=== PATIENT | female | born 1945 | race Caucasian/White ===

== ENCOUNTER 2016-08-24 22:05 | Inpatient (IN) | payer MEDICARE, MEDICAID ==
--- NOTE | 2016-08-24 22:08 | ED Physician Chart ---
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 with acute, constant, severe, low blood sugar that was noticed about 20 minutes prior to arrival. Patient also had associated hypotension with systolic blood pressure in the 60s and heart rate in the 50s despite being ventricularly paced. Patient is alert and oriented not tachypneic and asymptomatic. Allergies:: Allergies Allergy/AdvReac Type Severity Reaction Status Date / Time No Known Allergies Allergy Verified 09/16/15 21:24 Historian:: Patient, EMS Review:: Nurse's Note Reviewed, EMS run form Reviewed Review of Systems - Review of Systems Other: Complete system review otherwise unremarkable except as noted in history of present illness. Past Medical History - Past Medical History Past Medical History: HTN, DM, Other (pacemaker, diabetes mellitus, hypertension , COPD, cardiomegaly, muscle weakness, left buttock ulcer stage III, rheumatoid arthritis) Family History: None Social History: Non Smoker, No Alcohol, No Drug Use, Care Facility Surgical History: Pacemaker Psychiatricy History: None Medication: Reviewed Family Medical History - Family Member Mother History Unknown: Yes Father Ethnicity: Non- Living Status: Hx Family Cancer: No Hx Family Coronary Artery Disease: No Hx Family Congestive Heart Failure: No Hx Family Hypertension: No Hx Family Stroke: No Hx Family Diabetes: Yes Hx Family Seizures: No Hx Family Dementia: No Hx Family AIDS: No Hx Family HIV: No Hx Family COPD: No Hx Family Hepatitis: No Hx Family Psychiatric Problems: No Hx Family Tuberculosis: No Physical Exam - Physical Examination Other:: INITIAL VITAL SIGNS: Reviewed by me GENERAL: Alert and interactive. No acute distress HEAD: Head is normocephalic and atraumatic EYES: EOMI. PERRL. No scleral icterus. No conjunctival injection ENT: Moist mucous membranes. NECK: Supple. No masses. Full range of motion RESPIRATORY: No tachypnea. Clear breath sounds bilaterally. No wheezing, rales, or rhonchi CV: Bradycardic. No murmurs, rubs, or gallops ABDOMEN: Soft, non-distended, non-tender. No guarding. No rebound. No masses. EXTREMITIES: No deformity. No cyanosis. No edema. SKIN: Warm and dry. No obvious rashes. NEUROLOGIC: Alert and oriented. Face is symmetric. Speech is normal. Moves all extremities equally. Motor and sensory distally intact. Labs/Radiology/EKG Results - Lab Results Results: Lab Results 08/24/16 08/24/16 08/24/16 Range/Units 22:18 22:18 22:21 WBC 10.5 (4.8-10.8) Th/cmm RBC 2.89 L (3.80-5.20) Mil/cmm Hgb 8.2 L (11.7-16.1) gm/dL Hct 25.1 L (35.0-45.0) % MCV 87.1 (81-100) fl MCH 28.6 (27.0-31.0) pg MCHC Differential 32.8 (28.0-36.0) pg RDW 12.7 (11.5-20.0) % Plt Count 255 D (150-400) Th/cmm MPV 7.1 fl Neutrophils % 77.4 (40.0-80.0) % Lymphocytes % 16.4 L (20.0-50.0) % Monocytes % 3.9 (2.0-10.0) % Eosinophils % 2.0 (0.0-5.0) % Basophils % 0.3 (0.0-2.0) % PT 10.8 (9.5-11.5) SECONDS INR 1.04 (0.5-1.4) PTT (Actin FS) 22.7 L (26.0-38.0) SECONDS Sodium 125 L (136-145) mEq/L Potassium 5.5 H (3.5-5.1) mEq/L Chloride 95 L (98-107) mEq/L Carbon Dioxide 23.2 (21.0-31.0) mEq/L Anion Gap 12.3 (7.0-16.0) BUN 117 H* (7-25) mg/dL Creatinine 6.0 H* (0.6-1.2) mg/dL Est GFR ( Amer) 8.9 (>90) ml/min Est GFR (Non-Af Amer) 7.4 ml/min BUN/Creatinine Ratio 19.5 Glucose 101 (70-105) mg/dL Whole Bld Lactic Acid (0.60-1.99) mmol/L Calcium 8.3 L (8.6-10.3) mg/dL Total Bilirubin 0.2 L (0.3-1.0) mg/dL AST 16 (13-39) U/L ALT 6 L (7-52) U/L Alkaline Phosphatase 68 (34-104) U/L Creatine Kinase 44 (30-223) U/L Total Protein 6.5 (6.0-8.3) gm/dL Albumin 2.9 L (3.7-5.3) gm/dL Globulin 3.6 gm/dL Albumin/Globulin Ratio 0.8 L (1.0-1.8) 08/24/16 Range/Units 22:21 WBC (4.8-10.8) Th/cmm RBC (3.80-5.20) Mil/cmm Hgb (11.7-16.1) gm/dL Hct (35.0-45.0) % MCV (81-100) fl MCH (27.0-31.0) pg MCHC Differential (28.0-36.0) pg RDW (11.5-20.0) % Plt Count (150-400) Th/cmm MPV fl Neutrophils % (40.0-80.0) % Lymphocytes % (20.0-50.0) % Monocytes % (2.0-10.0) % Eosinophils % (0.0-5.0) % Basophils % (0.0-2.0) % PT (9.5-11.5) SECONDS INR (0.5-1.4) PTT (Actin FS) (26.0-38.0) SECONDS Sodium (136-145) mEq/L Potassium (3.5-5.1) mEq/L Chloride (98-107) mEq/L Carbon Dioxide (21.0-31.0) mEq/L Anion Gap (7.0-16.0) BUN (7-25) mg/dL Creatinine (0.6-1.2) mg/dL Est GFR ( Amer) (>90) ml/min Est GFR (Non-Af Amer) ml/min BUN/Creatinine Ratio Glucose (70-105) mg/dL Whole Bld Lactic Acid 1.73 (0.60-1.99) mmol/L Calcium (8.6-10.3) mg/dL Total Bilirubin (0.3-1.0) mg/dL AST (13-39) U/L ALT (7-52) U/L Alkaline Phosphatase (34-104) U/L Creatine Kinase (30-223) U/L Total Protein (6.0-8.3) gm/dL Albumin (3.7-5.3) gm/dL Globulin gm/dL Albumin/Globulin Ratio (1.0-1.8) - Radiology Results Results: Single AP VIEW Portable Chest X-ray was interpreted independently and contemporaneously by Allan Goode MD: Cardiomegaly Normal mediastinum Small Right lower lobe effusion No pneumothorax No soft tissue or bony abnormalities - EKG Interpretations Comments:: 12-lead EKG Interpretation by Allan Goode MD: Atrial ventricular dual paced complexes with ventricular rate of 50 beats per minute Normal axis Normal intervals No acute ST or T wave changes. No obvious STEMI ED Septic Shock - . Is Septic Shock (SBP<90, OR Lactate>4 mmol\L) present?: No Reassessment (Disposition) - Reassessment Reassessment:: In route patient received D10. Blood sugar improved to 100. Blood pressure was improving on arrival. Patient was alert and oriented. On arrival, she was given IV fluids. Accu-Chek showed glucose 101. BUN is 101, creatinine 6.0. Patient is in acute renal failure. Patient is also hyponatremic with sodium 125. [facility] and she received insulin. This dropped her blood sugar greater than 50 range. Consequently she must have developed severe hypotension with systolic blood pressure 60 mmHg. At that point apparently, 911 was called. She was then brought to the ER for further workup and treatment. We do have labs from last year showing a normal creatinine of 1.0. She is a DNR/DNI and a POLST form was transferred with her. Patient was monitored here in the ER. Given her comorbidities she may need further monitoring to make sure she doesn't decompensate. We discussed the case with the admitting physician. Patient admitted for further workup and treatment. Reassessment Condition:: Improved - Diagnosis Diagnosis:: Acute renal failure Acute elevated BUN Acute hypotension Acute Hypoglycemia Bradycardia Insulin-dependent Diabetes mellitus type 2 - Patient Disposition Discharge/Transfer:: Acute Care w/in this hosp Admitted to:: Telemetry Admitting Medical Physician:: Michael Tovar Time:: 00:02 Condition at Disposition:: Stable ED Discharge Plan - Patient Disposition Admit/Discharge/Transfer: Acute Care w/in this hosp
[2016-08-24] MEDS ORDERED: Sodium Chloride 0.9% 1,000 ML IV ONE ×2 (22:09)
[2016-08-24] MEDS ORDERED: cefTRIAXone 1 GM in Sodium Chloride 0.9% 50 ML IV ONE (22:11)
[2016-08-24] MEDS ORDERED: Dextrose 50% 50 mL Abboject IVP STA (22:12)
[2016-08-24 22:49] LABS: % BASOPHILS 0.3 % (0.0-2.0); % LYMPHOCYTES 16.4 % (20.0-50.0); % MONOCYTES 3.9 % (2.0-10.0); % NEUTROPHILS 77.4 % (40.0-80.0); HEMATOCRIT 25.1 % (35.0-45.0); HEMOGLOBIN 8.2 gm/dL (11.7-16.1); MEAN CELL VOLUME 87.1 fl (81-100); MEAN CORPUSCULAR HEMOGLOBIN 28.6 pg (27.0-31.0); MEAN CORPUSCULAR HGB CONC 32.8 pg (28.0-36.0); MEAN PLATELET VOLUME 7.1 fl; NEUTROPHILE ABSOLUTE 8.2 Th/cmm (1.8-8.0); PLATELET COUNT 255 Th/cmm (150-400); RED BLOOD COUNT 2.89 Mil/cmm (3.80-5.20); RED CELL DISTRIBUTION WIDTH 12.7 % (11.5-20.0); WHITE BLOOD COUNT 10.5 Th/cmm (4.8-10.8)
[2016-08-24 23:13] LABS: INR 1.04 (0.5-1.4); PROTHROMBIN TIME (TEST) 10.8 SECONDS (9.5-11.5)
[2016-08-24 23:16] LABS: ALB/GLOB RATIO 0.8 (1.0-1.8); ANION GAP 12.3 (7.0-16.0); BILIRUBIN,TOTAL 0.2 mg/dL (0.3-1.0); BUN/CREATININE RATIO 19.5; CALCIUM SERUM 8.3 mg/dL (8.6-10.3); CARBON DIOXIDE 23.2 mEq/L (21.0-31.0); POTASSIUM SERUM 5.5 mEq/L (3.5-5.1)
[2016-08-25] MEDS ORDERED: Magnesium Hydroxide (MOM) 30 mL UDC PO PRN (00:05)
[2016-08-25] MEDS ORDERED: Hydrocodone/APAP 5mg/325mg Tab PO PRN ×2 (00:05→00:10)
[2016-08-25] MEDS ORDERED: Hydrocodone/APAP 10 mg/325 mg Tab PO PRN (00:05)
[2016-08-25] MEDS ORDERED: Maalox 30 mL Cup PO PRN (00:05)
[2016-08-25] MEDS ORDERED: guaiFENesin 200 MG/10 ML UDC PO PRN (00:10)
[2016-08-25] MEDS ORDERED: Albuterol Nebulizer 2.5mg/3mL HHN PRN (00:10)
[2016-08-25] MEDS ORDERED: Dextrose 50% 50 mL Abboject IVP ONE (00:23)
[2016-08-25] MEDS: D5-0.9%NS 1,000 ML IV SCH ×2 (02:27→13:59)
--- NOTE | 2016-08-25 03:31 | Admit Criteria Form ---
Admit Criteria Forms - Admit Criteria Diagnosis: RENAL FAILURE, ACUTE Clinical Indications for Admission to Inpatient Care ( Place 'X' for any and all applicable criteria): Admission is indicated for ALL (if I & II) or III of the following [A](2)(3)(4)( 5)(6)(7): [X]I. Acute renal failure as indicated by ANY ONE of the following: [X]a) A 3-fold rise in serum creatinine from baseline [ ]b) Serum creatinine greater than 4 mg/dL (354 micromoles/L) with an acute rise greater than 0.5 mg/dL (44.2 micromoles/L) [ ]c) Reduction of more than 75% in estimated glomerular filtration rate from baseline [ ]d) Estimated glomerular filtration rate less than 35 mL/min/1.73m2 (0.59mL/sec/1.73m2)in a child up to 18 years of age [ ]e) Anuria indicated by ALL of the following: [ ]i) Adequate volume status [ ]ii) Cessation of urine output indicated by ANY ONE of the following: [ ]1) Urine output less than 0.3 mL/kg/hr for 24 hours [ ]2) Anuria (urine output less than 0.1 mL/kg/ hr) for 12 hours [X] II. Renal failure cannot be managed in an outpatient setting or observational care setting as indicating by ANY ONE of the following: [ ]a) Altered mental status that is severe or persistent [ ]b) Volume overload or Respiratory distress (eg, clinically significant pulmonary edema) that is severe or persistent [ ]c) Cardiac arrhythmias of immediate concern [ ]d) Hemodynamic instability [ ]e) Clinically significant electrolyte abnormality that requires inpatient care (eg, hyperkalemia with severe ECG findings)[B] [ ]f) Clinically significant metabolic abnormality (eg, acidosis) that is severe or persistent [ ]g) Acute treatment of renal failure (eg, renal replacement therapy) not feasible or appropriate in observational care setting [ ]h) Clinical situation too unstable or uncertain (eg, inadequate urine output, ongoing decline in renal function, etiology unclear) [ ]i) Necessary support and caregiver ability to comply with outpatient treatment cannot be arranged in observation care timeframe (eg, within 24 hours) [X]j) Other significant finding or clinical condition judged not to be within scope of observation care [ ]III.General contraindications and/or Inappropriate clinical situations for Observational Care in patients with Acute Renal Failure, when ANY ONE of the following is required: [ ]a) Prediction of prolongation of LOS based on ANY ONE of the following may be considered as a contraindication for observational care 2, 3, 4, 5, 6, 7, 8 , 9, 10, 11 [ ]i) Age > 65 yrs. [ ]ii) Patient arriving by ambulance [ ]iii) Patient with high acuity [ ]iv) Patient requiring vital sign monitoring [ ]v) Patient on IV medication [ ]b) Systolic blood pressures 180mmHg 3,12 [ ]c) Patient with altered mental status including delirium and other alteration of consciousness, (3) [ ]d) Patient whose discharge disposition will be to a residential home or rehabilitation home should not be managed in Emergency Department Observation Unit. CMS rule requires 3 days hospital stay before such placement.3,13 [ ]e) Patient with failure to thrive due to broad array of etiologies 3, 16,17 [ ]f) Inability to ambulate 3,14 Extended stay beyond goal length of stay may be needed for(13) [ ]a) Continuing uremic complications [ ]b) Care for comorbidities [ ]c) acute renal failure [ ]d) Need for dialysis The original [employer] content created by [employer] has been revised. The portions of the content which have been revised are identified through the use of italic text or in bold, and [facility] has neither reviewed nor approved the modified material. All other unmodified content is copyright [employer]. Please see references footnoted in the original [employer] edition 2016
[2016-08-25] MEDS: INSULIN ASPART SLIDING SCALE 100 UNITS/ML UNIT SUBQ SCH ×4 (06:46→21:35)
[2016-08-25] MEDS ORDERED: INSULIN HUMAN REGULAR 100 UNITS/ML UNIT SUBQ SCH (07:30)
[2016-08-25 08:07] LABS: URINE BILIRUBIN SMALL (NEGATIVE); URINE BLOOD LARGE (NEGATIVE); URINE COLOR YELLOW; URINE GLUCOSE (UA) NEGATIVE (NEGATIVE); URINE KETONE NEGATIVE (NEGATIVE)
[2016-08-25 08:08] LABS: URINE PROTEIN 30 mg/dL (NEGATIVE); URINE UROBILINOGEN 0.2 E.U./dL (0.2 - 1.0)
[2016-08-25 08:13] LABS: URINE BACTERIA MANY /hpf (NONE SEEN); URINE EPITHELIAL CELLS FEW /lpf (FEW); URINE WBC 50-100 /hpf (0-5)
[2016-08-25] MEDS: Multivitamin w/ Minerals Tab PO SCH (08:26)
[2016-08-25] MEDS: Insulin Detemir 100 units/mL 10mL Vial SUBQ SCH (08:44)
[2016-08-25] MEDS ORDERED: Non-Formulary Item 1 EA (Arginine/Ascorbate Sod/Vite Ac [Arginaid Powder] 1 EACH) PO SCH (09:00)
[2016-08-25] MEDS ORDERED: AMINO ACIDS PO SCH (09:00)
[2016-08-25] MEDS ORDERED: INSULIN GLARGINE SUBQ SCH (09:00)
[2016-08-25] MEDS ORDERED: PROTEIN HYDR PO SCH (09:00)
[2016-08-25] MEDS ORDERED: FIBER PO SCH (09:00)
[2016-08-25] MEDS ORDERED: Sulfamethoxazole/TMP 800/160mg Tab PO SCH (09:00)
[2016-08-25] MEDS ORDERED: [UNRECOGNIZED DRUG - OTHER] PO SCH (09:00)
--- NOTE | 2016-08-25 09:57 | History and Physical Report ---
History of Present Illness - History of Present Illness Chief Complaint: Low Blood Sugar History of Present Illness: 71 yo female brought from [facility] with low blood sugar. Also was found with low blood pressure and low heart rate. - Past Medical History Cardiac: HTN Pulmonary: COPD Rheumatologic: Rheumatoid arthritis Endocrine: Diabetes - Past Surgical History Past Surgical History: Other - Past Family History Family History: None - Past Social History Smoke: No Alcohol: None Drugs: None Lives: [facility]sp Review of Systems - Review of Systems Constitutional: Fever, Chills, Sweats, Weakness, Malaise, Other Eyes: Pain, Vision Change, Conjunctivae Inflammation, Eyelid Inflammation, Redness, Other ENT: Ear Pain, Ear Discharge, Nose Pain, Nose Discharge, Nose Congestion, Mouth Pain, Mouth Swelling, Throat Pain, Throat Swelling, Other Respiratory: Cough, Dry, Shortness of Breath, Hemoptysis, SOB with Excertion, Pleuritic Pain, Sputum, Wheezing Cardiovascular: Chest Pain, Palpitations, Orthopnea, Paroxysmal Noc. Dyspnea, Edema, Light Headedness, Other Gastrointestinal: Nausea, Vomiting, Abdominal Pain, Diarrhea, Constipation, Melena, Hematochezia, Other Genitourinary: Dysuria, Frequency, Incontinence, Hematuria, Retention, Other Musculoskeletal: Neck Pain, Shoulder Pain, Arm Pain, Back Pain, Hand Pain, Leg Pain, Foot Pain, Other Skin: Rash, Lesions, Trell, Bruising, Other Neurological: Weakness, Numbness, Incoordination, Change in Speech, Confusion, Seizures, Other - Medications/Allergies Allergies/Adverse Reactions: Allergies Allergy/AdvReac Type Severity Reaction Status Date / Time No Known Allergies Allergy Verified 08/24/16 22:16 Medications: Current Medications Acetaminophen (Tylenol) 650 mg PO Q6H PRN PRN Reason: Mild Pain/Headache/T above 101 Stop: 10/24/16 00:04 Acetaminophen/Hydrocodone Bitart (Penn 10 Mg/325 Mg) 1 tab PO Q6H PRN PRN Reason: Pain (Severe) Stop: 10/24/16 00:04 Acetaminophen/Hydrocodone Bitart (Penn 5mg/325mg) 1 tab PO Q6H PRN PRN Reason: Moderate Pain Stop: 10/24/16 00:04 Al Hydrox/Mg Hydrox/Simethicone (Maalox) 30 ml PO Q6H PRN PRN Reason: Dyspepsia Stop: 10/24/16 00:04 Albuterol Sulfate (Albuterol 2.5mg/3ml Neb Ud) 2.5 mg HHN Q4HR PRN PRN Reason: Shortness of Breath or Wheeze Stop: 10/24/16 00:09 Ascorbic Acid (Vitamin C) 500 mg PO DAILY [facility] Stop: 10/24/16 08:59 Last Admin: 08/25/16 08:26 Dose: 500 mg Docusate Sodium (Colace) 100 mg PO BID [facility] Stop: 10/24/16 08:59 Last Admin: 08/25/16 08:26 Dose: 100 mg Furosemide (Lasix) 40 mg PO DAILY [facility] Stop: 10/24/16 08:59 Last Admin: 08/25/16 08:22 Dose: 40 mg Guaifenesin (Robitussin) 300 mg PO Q6HR PRN PRN Reason: Cough Stop: 10/24/16 00:09 Dextrose/Sodium Chloride (D5-0.9%Ns) 1,000 mls @ 100 mls/hr IV .Q10H [facility] Stop: 10/24/16 00:14 Last Admin: 08/25/16 02:27 Dose: 100 mls/hr Insulin Aspart (Novolog Insulin Sliding Scale) 0 units SUBQ ACHS [facility] PRN Reason: Protocol Stop: 10/24/16 07:29 Last Admin: 08/25/16 06:46 Dose: Not Given Insulin Detemir (Levemir Insulin) 16 units SUBQ QAM [facility] Stop: 10/24/16 08:59 Last Admin: 08/25/16 08:44 Dose: 16 units Lorazepam (Ativan) 1 mg PO Q6H PRN; Protocol PRN Reason: Anxiety/Agitation Stop: 10/24/16 00:04 Magnesium Hydroxide (Milk Of Magnesia) 30 ml PO HS PRN PRN Reason: Constipation Stop: 10/24/16 00:04 Metoprolol Tartrate (Lopressor) 50 mg PO BID [facility] Stop: 10/24/16 08:59 Last Admin: 08/25/16 08:41 Dose: Not Given Nitroglycerin (Nitrostat) 0.4 mg SL Q5MIN PRN PRN Reason: Chest Pain Stop: 10/24/16 00:09 Ondansetron HCl (Zofran Odt) 4 mg PO Q6H PRN PRN Reason: Nausea / Vomiting Stop: 10/24/16 00:04 Ondansetron HCl (Zofran Odt) 4 mg PO Q4HR PRN PRN Reason: Nausea Trimethoprim/Sulfamethoxazole (Bactrim Ds) 1 tab PO Q12HR PATRIA Stop: 10/24/16 08:59 Last Admin: 08/25/16 08:39 Dose: 1 tab Zinc Sulfate (Zinc Sulfate) 220 mg PO DAILY PATRIA Stop: 10/24/16 08:59 Last Admin: 08/25/16 08:25 Dose: 220 mg Exam - Exam Vital Signs: Vital Signs (72 hours) 08/25/16 08/25/16 08/25/16 00:15 00:52 00:56 Temp 96.8 F HR 52 50 50 RR 17 12 12 BP 109/43 93/47 O2 Sat % 100 100 100 08/25/16 08/25/16 08/25/16 01:08 01:40 04:00 Temp 96.3 F 96.3 F HR 50 50 RR 12 20 20 BP 90/48 O2 Sat % 100 100 08/25/16 08/25/16 08/25/16 07:51 08:22 08:41 Temp 97.0 F HR 53 53 RR 18 BP 91/47 99/47 91/47 O2 Sat % 100 General: Alert, Oriented x3, No acute distress HEENT: Atraumatic, PERRLA, EOMI, Mucous membr. moist/pink Lungs: Clear to auscultation, Normal air movement Cardiovascular: Normal S1, Normal S2, Other (Bradycardia) Abdomen: Bowel sounds, Soft Extremities: Clubbing (No), Cyanosis (No), Edema (No), Pulses (equal bilaterally ) Skin: Rash (No) Neurological: Normal speech, Normal tone, Sensation intact, Cranial nerves 3-12 NL Assessment/Plan - Problem List Patient Problems: All Active Problems Azotemia (Acute) R79.89 Bradycardia (Acute) R00.1 COPD (chronic obstructive pulmonary disease) (Acute) Cardiomegaly (Acute) I51.7 Decubitus ulcer of buttock, 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 Diabetes mellitus (Acute) E11.9 Hypoglycemia (Acute) E16.2 Hypotension (Acute) Pacemaker (Acute) Z95.0 Rheumatoid arthritis (Acute) M06.9 Acute kidney failure (Acute) Atherosclerotic heart disease of [place] coronary artery without angina pectoris (Acute) I25.10 Chest pain (Acute) R07.9 Pleural effusion, not elsewhere classified (Acute) J90 - Assessment/Plan Plan: Admit to Telemetry. See admission orders. Will obtain further labs and consults. Lab and Imaging Review - Labs and Image Labs and Imaging Notes: Laboratory Tests 08/25/16 08/25/16 08/25/16 06:00 06:44 08:40 POC Glucose 96 171 H Urine Source CATH Urine Color YELLOW Urine Clarity SLIGHTLY CLOUDY Urine pH 7.0 Ur Specific [place] 1.015 Urine Protein 30 H Urine Glucose (UA) NEGATIVE Urine Ketones NEGATIVE Urine Blood LARGE H Urine Nitrate NEGATIVE Urine Bilirubin SMALL H Urine Urobilinogen 0.2 Ur Leukocyte Esterase LARGE H Urine RBC 10-25 H Urine WBC 50-100 H Ur Epithelial Cells FEW Urine Bacteria MANY Vital Signs Temp 97.0 F 08/25/16 07:51 Pulse 53 08/25/16 08:41 Resp 18 08/25/16 07:51 BP 91/47 08/25/16 08:41 Pulse Ox 100 08/25/16 07:51 Intake & Output 08/24/16 08/25/16 08/25/16 18:59 06:59 18:59 Intake Total 220 Balance 220 Weight (lbs) 92.986 kg Intake: Oral 220 Other: # Voids 2 # Bowel Movements 0
--- NOTE | 2016-08-25 10:26 | Diagnostic Imaging Report ---
CHEST X-RAY: AP view INDICATION: pain COMPARISON: Chest x-ray 09/16/[address] chest on 09/16/2015 FINDINGS: Left chest wall ICD is stable. Right lower lung zone pleural density is again noted. Marked cardiomegaly is noted. Bibasal atelectasis is noted with no focal consolidation identified. Atherosclerosis is noted. Degenerative changes of spine are noted. IMPRESSION: Right basal pleural density likely chronic when compared with prior exam. Right basal atelectatic changes are seen with no focal consolidation identified. Marked cardiomegaly with atherosclerosis. AICD noted.
[2016-08-25] MEDS: Levofloxacin 250mg/50mL 250 MG/50 ML BAG IV SCH (16:13)
[2016-08-26] MEDS: D5-0.9%NS 1,000 ML IV SCH ×2 (01:25→14:29)
[2016-08-26 06:37] LABS: % BASOPHILS 0.1 % (0.0-2.0); % EOSINOPHILS 4.5 % (0.0-5.0); % LYMPHOCYTES 19.9 % (20.0-50.0); % MONOCYTES 7.2 % (2.0-10.0); % NEUTROPHILS 68.3 % (40.0-80.0); HEMATOCRIT 26.2 % (35.0-45.0); HEMOGLOBIN 8.5 gm/dL (11.7-16.1); MEAN CELL VOLUME 88.5 fl (81-100); MEAN CORPUSCULAR HEMOGLOBIN 28.8 pg (27.0-31.0); MEAN CORPUSCULAR HGB CONC 32.5 pg (28.0-36.0); MEAN PLATELET VOLUME 6.8 fl; NEUTROPHILE ABSOLUTE 8.2 Th/cmm (1.8-8.0); PLATELET COUNT 257 Th/cmm (150-400); RED BLOOD COUNT 2.96 Mil/cmm (3.80-5.20); RED CELL DISTRIBUTION WIDTH 12.8 % (11.5-20.0); WHITE BLOOD COUNT 11.8 Th/cmm (4.8-10.8)
[2016-08-26] MEDS: INSULIN ASPART SLIDING SCALE 100 UNITS/ML UNIT SUBQ SCH ×2 (06:42→11:39)
[2016-08-26 06:52] LABS: ANION GAP 9.9 (7.0-16.0); BUN/CREATININE RATIO 20.2; MAGNESIUM 2.6 mg/dL (1.9-2.7); PHOSPHOROUS 5.7 mg/dL (2.5-5.0); POTASSIUM SERUM 5.9 mEq/L (3.5-5.1); URIC ACID 10.6 mg/dL (2.3-6.6)
[2016-08-26 06:57] LABS: TROP I 0.02 ng/mL (0.01-0.05)
[2016-08-26 06:58] LABS: CREATININE - SERUM 5.1 mg/dL (0.6-1.2)
[2016-08-26 06:59] LABS: INR 0.99 (0.5-1.4); PROTHROMBIN TIME (TEST) 10.3 SECONDS (9.5-11.5)
[2016-08-26 08:12] LABS: C-REACTIVE PROTEIN 2.5 mg/dL (0.0-0.9)
[2016-08-26] MEDS: Multivitamin w/ Minerals Tab PO SCH (10:36)
[2016-08-26] MEDS: Insulin Detemir 100 units/mL 10mL Vial SUBQ SCH (10:38)
--- NOTE | 2016-08-26 13:48 | General Progress Note ---
Subjective - Review of Systems Service Date: 08/26/16 Subjective: alert, verbal, comfortable Objective - Results Result Diagrams: 08/26/16 06:25 08/26/16 06:25 Recent Labs: Laboratory Last Values WBC 11.8 Th/cmm (4.8-10.8) H 08/26/16 06:25 RBC 2.96 Mil/cmm (3.80-5.20) L 08/26/16 06:25 Hgb 8.5 gm/dL (11.7-16.1) L 08/26/16 06:25 Hct 26.2 % (35.0-45.0) L 08/26/16 06:25 MCV 88.5 fl (81-100) 08/26/16 06:25 MCH 28.8 pg (27.0-31.0) 08/26/16 06:25 MCHC Differential 32.5 pg (28.0-36.0) 08/26/16 06:25 RDW 12.8 % (11.5-20.0) 08/26/16 06:25 Plt Count 257 Th/cmm (150-400) 08/26/16 06:25 MPV 6.8 fl 08/26/16 06:25 Neutrophils % 68.3 % (40.0-80.0) 08/26/16 06:25 Lymphocytes % 19.9 % (20.0-50.0) L 08/26/16 06:25 Monocytes % 7.2 % (2.0-10.0) 08/26/16 06:25 Eosinophils % 4.5 % (0.0-5.0) 08/26/16 06:25 Basophils % 0.1 % (0.0-2.0) 08/26/16 06:25 ESR 52 mm/hr (0-30) H 08/26/16 06:25 Eos Smear Source URINE 08/26/16 01:58 Eos Smear Total Cells NONE SEEN (NONE SEEN) 08/26/16 01:58 PT 10.3 SECONDS (9.5-11.5) 08/26/16 06:25 INR 0.99 (0.5-1.4) 08/26/16 06:25 PTT (Actin FS) 26.1 SECONDS (26.0-38.0) 08/26/16 06:25 Sodium 130 mEq/L (136-145) L 08/26/16 06:25 Potassium 5.9 mEq/L (3.5-5.1) H 08/26/16 06:25 Chloride 103 mEq/L (98-107) 08/26/16 06:25 Carbon Dioxide 23.0 mEq/L (21.0-31.0) 08/26/16 06:25 Anion Gap 9.9 (7.0-16.0) 08/26/16 06:25 BUN 103 mg/dL (7-25) H* 08/26/16 06:25 Creatinine 5.1 mg/dL (0.6-1.2) H* 08/26/16 06:25 Est GFR ( Amer) 10.8 ml/min (>90) 08/26/16 06:25 Est GFR (Non-Af Amer) 8.9 ml/min 08/26/16 06:25 BUN/Creatinine Ratio 20.2 08/26/16 06:25 Glucose 103 mg/dL (70-105) 08/26/16 06:25 POC Glucose 125 MG/DL (70 - 105) H 08/26/16 11:32 Hemoglobin A1c % 5.4 % (4.0-6.0) 08/26/16 06:25 Whole Bld Lactic Acid 1.73 mmol/L (0.60-1.99) 08/24/16 22:21 Uric Acid 10.6 mg/dL (2.3-6.6) H 08/26/16 06:25 Calcium 8.0 mg/dL (8.6-10.3) L 08/26/16 06:25 Phosphorus 5.7 mg/dL (2.5-5.0) H 08/26/16 06:25 Magnesium 2.6 mg/dL (1.9-2.7) 08/26/16 06:25 Total Bilirubin 0.2 mg/dL (0.3-1.0) L 08/24/16 22:21 AST 16 U/L (13-39) 08/24/16 22:21 ALT 6 U/L (7-52) L 08/24/16 22:21 Alkaline Phosphatase 68 U/L (34-104) 08/24/16 22:21 Creatine Kinase 44 U/L (30-223) 08/24/16 22:21 Troponin I 0.02 ng/mL (0.01-0.05) 08/26/16 06:25 C-Reactive Protein 2.5 mg/dL (0.0-0.9) H 08/26/16 06:25 Total Protein 6.5 gm/dL (6.0-8.3) 08/24/16 22:21 Albumin 2.9 gm/dL (3.7-5.3) L 08/24/16 22:21 Globulin 3.6 gm/dL 08/24/16 22:21 Albumin/Globulin Ratio 0.8 (1.0-1.8) L 08/24/16 22:21 TSH 0.64 uIU/ml (0.34-5.60) 08/26/16 06:25 Urine Source CATH 08/25/16 06:00 Urine Color YELLOW 08/25/16 06:00 Urine Clarity SLIGHTLY CLOUDY (CLEAR) 08/25/16 06:00 Urine pH 7.0 08/25/16 06:00 Ur Specific [place] 1.015 (1.005-1.030) 08/25/16 06:00 Urine Protein 30 mg/dL (NEGATIVE) H 08/25/16 06:00 Urine Glucose (UA) NEGATIVE mg/dL (NEGATIVE) 08/25/16 06:00 Urine Ketones NEGATIVE mg/dL (NEGATIVE) 08/25/16 06:00 Urine Blood LARGE (NEGATIVE) H 08/25/16 06:00 Urine Nitrate NEGATIVE (NEGATIVE) 08/25/16 06:00 Urine Bilirubin SMALL (NEGATIVE) H 08/25/16 06:00 Urine Urobilinogen 0.2 E.U./dL (0.2 - 1.0) 08/25/16 06:00 Ur Leukocyte Esterase LARGE (NEGATIVE) H 08/25/16 06:00 Urine RBC 10-25 /hpf (0-5) H 08/25/16 06:00 Urine WBC 50-100 /hpf (0-5) H 08/25/16 06:00 Ur Epithelial Cells FEW /lpf (FEW) 08/25/16 06:00 Urine Bacteria MANY /hpf (NONE SEEN) 08/25/16 06:00 Ur Random Sodium 38 mmol/L 08/26/16 01:58 Urine Creatinine 96.0 mg/dl (28.0-217.0) 08/26/16 01:58 - Physical Exam Vitals and I&O: Vital Signs Temp 98.1 F 08/26/16 11:51 Pulse 63 08/26/16 11:51 Resp 18 08/26/16 11:51 BP 99/49 08/26/16 11:51 Pulse Ox 96 08/26/16 11:51 Intake & Output 08/25/16 08/26/16 08/26/16 18:59 06:59 18:59 Intake Total 1050 1400 Balance 1050 1400 Weight (lbs) 95.98 kg Intake: Intake, IV Amount 1050 1000 D5-0.9%Ns 1,000 ml @ 100 1000 1000 mls/hr IV .Q10H [facility] Rx#: [id number] Levofloxacin 250mg/50mL 50 250 mg In 50 ml @ 50 mls/ hr IV Q24HR [facility] Rx#: [id number] Oral 400 Other: # Voids 2 Active Medications: Current Medications Acetaminophen (Tylenol) 650 mg PO Q6H PRN PRN Reason: Mild Pain/Headache/T above 101 Stop: 10/24/16 00:04 Acetaminophen/Hydrocodone Bitart ([place] 10 Mg/325 Mg) 1 tab PO Q6H PRN PRN Reason: Pain (Severe) Stop: 10/24/16 00:04 Acetaminophen/Hydrocodone Bitart ([place] 5mg/325mg) 1 tab PO Q6H PRN PRN Reason: Moderate Pain Stop: 10/24/16 00:04 Al Hydrox/Mg Hydrox/Simethicone (Maalox) 30 ml PO Q6H PRN PRN Reason: Dyspepsia Stop: 10/24/16 00:04 Albuterol Sulfate (Albuterol 2.5mg/3ml Neb Ud) 2.5 mg HHN Q4HR PRN PRN Reason: Shortness of Breath or Wheeze Stop: 10/24/16 00:09 Ascorbic Acid (Vitamin C) 500 mg PO DAILY [facility] Stop: 10/24/16 08:59 Last Admin: 08/26/16 10:37 Dose: 500 mg Docusate Sodium (Colace) 100 mg PO BID [facility] Stop: 10/24/16 08:59 Last Admin: 08/26/16 10:37 Dose: 100 mg Guaifenesin (Robitussin) 300 mg PO Q6HR PRN PRN Reason: Cough Stop: 10/24/16 00:09 Dextrose/Sodium Chloride (D5-0.9%Ns) 1,000 mls @ 100 mls/hr IV .Q10H [facility] Stop: 10/24/16 00:14 Last Admin: 08/26/16 01:25 Dose: 100 mls/hr Levofloxacin (Levaquin Pb) 250 mg in 50 mls @ 50 mls/hr IV Q24HR [facility] Stop: 10/24/16 14:59 Last Infusion: 08/25/16 17:13 Dose: Infused Insulin Aspart (Novolog Insulin Sliding Scale) 0 units SUBQ ACHS PATRIA PRN Reason: Protocol Stop: 10/24/16 07:29 Last Admin: 08/26/16 11:39 Dose: Not Given Insulin Detemir (Levemir Insulin) 16 units SUBQ QAM [facility] Stop: 10/24/16 08:59 Last Admin: 08/26/16 10:38 Dose: Not Given Lorazepam (Ativan) 1 mg PO Q6H PRN; Protocol PRN Reason: Anxiety/Agitation Stop: 10/24/16 00:04 Magnesium Hydroxide (Milk Of Magnesia) 30 ml PO HS PRN PRN Reason: Constipation Stop: 10/24/16 00:04 Metoprolol Tartrate (Lopressor) 50 mg PO BID [facility] Stop: 10/24/16 08:59 Last Admin: 08/26/16 10:37 Dose: Not Given Nitroglycerin (Nitrostat) 0.4 mg SL Q5MIN PRN PRN Reason: Chest Pain Stop: 10/24/16 00:09 Ondansetron HCl (Zofran Odt) 4 mg PO Q4HR PRN PRN Reason: Nausea Zinc Sulfate (Zinc Sulfate) 220 mg PO DAILY [facility] Stop: 10/24/16 08:59 Last Admin: 08/26/16 10:36 Dose: 220 mg General: Alert, Cooperative, No acute distress HEENT: Atraumatic, EOMI, Mucous membr. moist/pink Neck: Supple, +2 carotid pulse wo bruit Cardiovascular: Regular rate, Normal S1, Normal S2 Lungs: Clear to auscultation Abdomen: Bowel sounds, Soft Extremities: no Edema Neurological: Sensation intact Skin: no Rash Psych/Mental Status: Mood NL Assessment/Plan - Problem List Patient Problems: All Active Problems Azotemia (Acute) R79.89 Bradycardia (Acute) R00.1 COPD (chronic obstructive pulmonary disease) (Acute) Cardiomegaly (Acute) I51.7 Decubitus ulcer of buttock, 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 Diabetes mellitus (Acute) E11.9 Hypoglycemia (Acute) E16.2 Hypotension (Acute) Pacemaker (Acute) Z95.0 Rheumatoid arthritis (Acute) M06.9 Acute kidney failure (Acute) Atherosclerotic heart disease of [place] coronary artery without angina pectoris (Acute) I25.10 Chest pain (Acute) R07.9 Pleural effusion, not elsewhere classified (Acute) J90 - Assessment Assessment: SOHAIL Hyponatremia Hyperkalemia Severe Malnutrition Type 2 DM w/ Hypoglycemia Cx UTI Ess HTN Copd RA Ulcer Left Gluteal area Dyslipidemia Arrythmia - Plan Plan: Lab - Result Diagrams 08/26/16 06:25 08/26/16 06:25 Current Medications Acetaminophen (Tylenol) 650 mg PO Q6H PRN PRN Reason: Mild Pain/Headache/T above 101 Stop: 10/24/16 00:04 Acetaminophen/Hydrocodone Bitart ([place] 10 Mg/325 Mg) 1 tab PO Q6H PRN PRN Reason: Pain (Severe) Stop: 10/24/16 00:04 Acetaminophen/Hydrocodone Bitart ([place] 5mg/325mg) 1 tab PO Q6H PRN PRN Reason: Moderate Pain Stop: 10/24/16 00:04 Al Hydrox/Mg Hydrox/Simethicone (Maalox) 30 ml PO Q6H PRN PRN Reason: Dyspepsia Stop: 10/24/16 00:04 Albuterol Sulfate (Albuterol 2.5mg/3ml Neb Ud) 2.5 mg HHN Q4HR PRN PRN Reason: Shortness of Breath or Wheeze Stop: 10/24/16 00:09 Ascorbic Acid (Vitamin C) 500 mg PO DAILY [facility] Stop: 10/24/16 08:59 Last Admin: 08/26/16 10:37 Dose: 500 mg Docusate Sodium (Colace) 100 mg PO BID [facility] Stop: 10/24/16 08:59 Last Admin: 08/26/16 10:37 Dose: 100 mg Guaifenesin (Robitussin) 300 mg PO Q6HR PRN PRN Reason: Cough Stop: 10/24/16 00:09 Dextrose/Sodium Chloride (D5-0.9%Ns) 1,000 mls @ 100 mls/hr IV .Q10H [facility] Stop: 10/24/16 00:14 Last Admin: 08/26/16 01:25 Dose: 100 mls/hr Levofloxacin (Levaquin Pb) 250 mg in 50 mls @ 50 mls/hr IV Q24HR [facility] Stop: 10/24/16 14:59 Last Infusion: 08/25/16 17:13 Dose: Infused Insulin Aspart (Novolog Insulin Sliding Scale) 0 units SUBQ ACHS PATRIA PRN Reason: Protocol Stop: 10/24/16 07:29 Last Admin: 08/26/16 11:39 Dose: Not Given Insulin Detemir (Levemir Insulin) 16 units SUBQ QAM [facility] Stop: 10/24/16 08:59 Last Admin: 08/26/16 10:38 Dose: Not Given Lorazepam (Ativan) 1 mg PO Q6H PRN; Protocol PRN Reason: Anxiety/Agitation Stop: 10/24/16 00:04 Magnesium Hydroxide (Milk Of Magnesia) 30 ml PO HS PRN PRN Reason: Constipation Stop: 10/24/16 00:04 Metoprolol Tartrate (Lopressor) 50 mg PO BID [facility] Stop: 10/24/16 08:59 Last Admin: 08/26/16 10:37 Dose: Not Given Nitroglycerin (Nitrostat) 0.4 mg SL Q5MIN PRN PRN Reason: Chest Pain Stop: 10/24/16 00:09 Ondansetron HCl (Zofran Odt) 4 mg PO Q4HR PRN PRN Reason: Nausea Zinc Sulfate (Zinc Sulfate) 220 mg PO DAILY [facility] Stop: 10/24/16 08:59 Last Admin: 08/26/16 10:36 Dose: 220 mg Kidney fnc improving w/ BUN/CR of 103/5.1 Na up to 130 K up to 5.9, admisister Kayexalate P04 up to 5.7. start Renvela continue IVF, monitor glucose Nutritional Asmnt/Malnutr-PDOC - Dietary Evaluation Malnutrition Findings (Please click <Entered> for more info): Nutritional Asmnt/Malnutrition Start: 08/25/16 14: 01 Text: Status: Complete Freq: Document 06/28/17 14:01 SALOMON (Rec: 08/25/16 14:23 SALOMON [id number]) Nutritional Asmnt/Malnutrition Patient General Information Nutritional Screening Consult Diagnosis H&P: hypoglycemia, acute kidney failure, decubitis ulcer Pertinent Medical Hx/Surgical Hx HTN, COPD, theumatoid arthritis, DM Subjective Information 71 year old female from SNF. RD consult for DM. Pt admitted with hypoglycemia. Type 1 DM noted in [facility] dx, pt is unsure of type 1 or type 2, but stated she takes insulin regularly, follows CCHO diet, understands CCHO diet. Observed lunch tray at bedside mostly untouched, pt only had soup and sides. Pt stated currently no appetite, but usually very good appetite. Pt reported UBW 190lb, CBW 206. 5lb via bedscale, denied recent weight changes. Teeth intact, no difficulties eating . Pt appeared overweight, no significant wasting noted. RD discussed diet recommendations with RANDALL Paniagua. Current Diet Order/ Nutrition Support Regular Pertinent Medications Maalox, Vitamin C, D5-0.9%ns, Colace, Lasix, Novolog, Levemir, MOM, Zofran, Zinc Sulfate Pertinent Labs 08/24: BUN 117H, creatinine 6H, potassium 5.5H 08/25: POC glucose 35L 191H 96 171H 128H Nutritional Hx/Data Height 1.55 m Height (Calculated Centimeters) 154.9 Current Weight (lbs) 93.667 kg Weight (Calculated Kilograms) 93.7 Weight (Calculated Grams) 28024.8 Usual body Weight (lbs) 190 [place] Body Weight 105 Weight Status Obese GI Symptoms Food Allergies No Cultural/Ethnic/Mandaen Belief Pt follows CCHO diet at [facility], appeared aware of CCHO diet. Pt does not take regular sugar , only sweet n low. Pt dislikes fish, FNS noted. Pt denied food allergies. Usual diet at home [facility]: PASHA, mech soft, CCHO, small portion Skin Integrity/Comment: Masood 17. Wound care pending. RN: reddened buttocks. H&P: ulcer buttocks. Estimated Nutritional Goals BEE in Kcals: Adj wt of IBW Calories/Kcals/Kg AdjBW 130.4lb/59.3kg Kcals Calculated 1483-1779kcal (25-30kcal/kg) Protein: Adj wt of IBW Protein g/kg: AdjBW Protein Calculated 47-83g (0.8-1.4g/kg, renal vs skin integrity) Fluid: ml Per MD (dx. acute renal failure) Nutritional Problem 2. Problem Problem Altered nutrition related laboratory values related to Etiology DM aeb Signs/Symptoms: H&P, POC glucose 35-191H 1. Problem Problem Impaired nutrient utilization related to Etiology acute renal failure aeb Signs/Symptoms: H&P, BUN 117H, creatinine 6H, potassium 5.5H Intervention/Recommendation Comments 1. Recommend [id number] renal with Arginine 1 packet per day . Pt report usually good appetite. 2. Provided brief nutrition edu on DM. Pt noted with fair previous knowledge on topic, stated takes insulin and follows CCHO diet. Pt has no further questions at this time and does not wish to discuss further. Pt made aware of resource available upon request. 3. FNS noted of pt's food preferences. Expected Outcomes/Goals Expected Outcomes/Goals 1. Appetite to resume, PO intake to meet at least 75% of estimated nutritional needs.
[2016-08-26] MEDS: Levofloxacin 250mg/50mL 250 MG/50 ML BAG IV SCH (14:30)
[2016-08-27 12:17] LABS: MICROALBUMIN RANDOM RUINE 58.8 ug/mL (Not Estab.)
[2016-08-27 14:18] LABS: FOLIC ACID 4.3 ng/mL (>3.0)
== END 2016-08-26 17:17 | disposition home or self-care (01) | DRG 682 ==
LOC: ER 22:05 → TELE 08-25 00:05
PROVIDERS: ADMIT Preventive Medicine Preventive Medicine/Occupational Environmental Medicine; ATTEND Preventive Medicine Preventive Medicine/Occupational Environmental Medicine
DX: N17.9 Acute kidney failure, unspecified (principal); E43 Unspecified severe protein-calorie malnutrition; J90 Pleural effusion, not elsewhere classified; I95.9 Hypotension, unspecified; L89.323 Pressure ulcer of left buttock, stage 3; E11.649 Type 2 diabetes mellitus with hypoglycemia without coma; J44.9 Chronic obstructive pulmonary disease, unspecified; E87.1 Hypo-osmolality and hyponatremia; Z68.41 Body mass index [BMI] 40.0-44.9, adult; R00.1 Bradycardia, unspecified; I51.7 Cardiomegaly; M06.9 Rheumatoid arthritis, unspecified; I25.10 Atherosclerotic heart disease of native coronary artery without angina pectoris; I10 Essential (primary) hypertension; Z66 Do not resuscitate; E87.5 Hyperkalemia; E78.5 Hyperlipidemia, unspecified; Z95.0 Presence of cardiac pacemaker; Z84.89 Family history of other specified conditions; Z83.3 Family history of diabetes mellitus; Z79.4 Long term (current) use of insulin
CPT/HCPCS: 36415-UA; 71010-TC; 80048-TC; 80053-TC; 81001-TC; 81015-TC; 82043-90; 82550-TC; 82570-TC; 82728-90; 82746-90; 82948-90; 83036-90; 83540-90; 83550-90; 83605; 83735-TC; 83930-90; 83935-90; 84100-TC; 84300-TC; 84443-TC; 84466-90; 84484-TC; 84550-TC; 85025-TC; 85610-TC; 85652-TC; 85730-TC; 86141-TC; 87086-90; 90799; 93005; 94760; J0696; J1815; J1956; J7030; J7042; Q0162; Z7610

== ENCOUNTER 2017-02-18 21:59 | Inpatient (IN) | payer MEDICARE, MEDICAID ==
--- NOTE | 2017-02-18 23:11 | ED Physician Chart ---
ED Chief Complaint/HPI - Patient Information Date Seen:: 02/18/17 Time Seen:: 22:30 Chief Complaint:: Hematemesis History of Present Illness:: PATIENT REPORTS SYMPTOMS PRESENTING 1 DAY DURATION. PATIENT HAD VOMITED IN NURSING FACILITY, X-RAY WAS DONE THAT SHOWED POSSIBLE GASTRIC OUTLET OBSTRUCTION , SENT TO ER FOR EVALUATION. Allergies:: Allergies Allergy/AdvReac Type Severity Reaction Status Date / Time No Known Allergies Allergy Verified 08/24/16 22:16 Vitals:: Vital Signs - 8 hr 02/18/17 22:10 Temp 98.1 F HR 82 RR 19 BP 107/53 O2 Sat % 97 Historian:: EMS, Medical Records Review:: Nurse's Note Reviewed, Old Chart Reviewed ED Review of Systems - Review of Systems GI: Vomiting Other: ROS DIFFICULT TO OBTAIN, PATIENT POORLY RESPONSIVE. ED Past Medical History - Past Medical History Past Medical History: DM, CAD, Asthma/COPD, Other (RHEUMATOID ARTHRITIS) Family Medical History - Family Member Mother History Unknown: Yes Ethnicity: Non- Living Status: Hx Family Cancer: No Hx Family Coronary Artery Disease: Yes Hx Family Congestive Heart Failure: No Hx Family Hypertension: No Hx Family Stroke: Yes Hx Family Diabetes: No Hx Family Seizures: No Hx Family Dementia: No Hx Family AIDS: No Hx Family HIV: No Hx Family COPD: No Hx Family Hepatitis: No Hx Family Psychiatric Problems: No Hx Family Tuberculosis: No Father History Unknown: Yes Ethnicity: Non- Living Status: Hx Family Cancer: No Hx Family Coronary Artery Disease: No Hx Family Congestive Heart Failure: No Hx Family Hypertension: No Hx Family Stroke: No Hx Family Diabetes: Yes Hx Family Seizures: No Hx Family Dementia: No Hx Family AIDS: No Hx Family HIV: No Hx Family COPD: No Hx Family Hepatitis: No Hx Family Psychiatric Problems: No Hx Family Tuberculosis: No ED Physical Exam - Physical Examination General/Constitutional: Alert, GCS 15, Non-toxic appearing Head: Atraumatic Eyes: Lids, conjuctiva normal Skin: Well hydrated ENMT: External ears, nose nl Neck: Nontender Respiratory: Nl effort/Exclusion Cardio Vascular: RRR GI: No tenderness/rebounding/guarding Other GI comments:: ABDOMEN DISTENDED. : No CVA tenderness Extremities: No tenderness or effusion Neuro/Psych: Alert/oriented, Judgement/insight normal Misc: Normal back ED Assessment - Assessment General Assessment: Clinical situation this afternoon xray shows gastric distension sp vomiting blood no prior wbc mild anemia, soft abdomen sent to ER for further evaluation. While she was in the ER she became hypotensive and extremely lethargic. Fluid and vasopressors were given. ED Septic Shock - . Is Septic Shock (SBP<90, OR Lactate>4 mmol\L) present?: No - <6hrs of presentation: Vital Signs: Vital Signs - 8 hr // 22:10 Temp 98.1 F HR 82 RR 19 BP 107/53 O2 Sat % 97 ED Reassessment (Disposition) - Reassessment Reassessment Condition:: Worsened (Became apneic due to possible high flow oxygen, ambu bag with return to normal mentation. ) - Patient Disposition Discharge/Transfer:: Acute Care w/in this hosp ED Discharge Plan - Patient Disposition Admit/Discharge/Transfer: Acute Care w/in this hosp Condition at Disposition: Critical
[2017-02-18 23:43] LABS: BASOPHILE ABSOLUTE 0.1 Th/cumm (0-0.2); HEMOGLOBIN 10.2 gm/dL (12-16); LYMPHOCYTE ABSOLUTE 1.3 Th/cmm (1.5-3.0); MEAN CELL VOLUME 88.1 fl (81-100); MEAN CORPUSCULAR HEMOGLOBIN 28.6 pg (27.0-31.0); MEAN CORPUSCULAR HGB CONC 32.5 pg (28.0-36.0); MEAN PLATELET VOLUME 8.1 fl; MONOCYTE ABSOLUTE 0.8 Th/cmm (0.3-1.0); NEUTROPHILE ABSOLUTE 20.8 Th/cmm (1.8-8.0); RED BLOOD COUNT 3.57 Mil/cmm (3.80-5.20)
[2017-02-19 00:05] LABS: HEMATOCRIT 31.4 % (41.0-60); PLATELET COUNT 203 Th/cmm (150-400)
[2017-02-19 00:13] LABS: ALBUMIN 3.2 gm/dL (3.7-5.3); BILIRUBIN,TOTAL 0.3 mg/dL (0.3-1.0); TOTAL PROTEIN,SERUM 6.3 gm/dL (6.0-8.3)
[2017-02-19 00:14] LABS: BILIRUBIN,DIRECT 0.09 mg/dL (0.0-0.2)
[2017-02-19] MEDS ORDERED: Levofloxacin 750mg/150mL 750 MG/150 ML BAG IV ONE ×2 (00:35→03:27)
[2017-02-19] MEDS ORDERED: 0.9% NS w/20 mEq KCL 1,000 ML IV ONE (00:41)
[2017-02-19 01:03] LABS: ANION GAP 10.9 (7.0-16.0); CALCIUM SERUM 8.7 mg/dL (8.6-10.3); CARBON DIOXIDE 34.1 mEq/L (21.0-31.0); CREATININE - SERUM 1.4 mg/dL (0.6-1.2); GFR AFRICAN-AMERICAN 47.9 ml/min (>90); GFR NON AFRICAN-AMERICAN 39.6 ml/min
[2017-02-19] MEDS ORDERED: Sodium Chloride 0.9% 1,000 ML IV ONE (01:14)
[2017-02-19] MEDS ORDERED: ALBUMIN 25% IV ONE (02:17)
[2017-02-19] MEDS ORDERED: Norepinephrine 4 mg/4mL Vial IV ONE (02:21)
[2017-02-19] MEDS ORDERED: Albumin 25% 25gm/100mL 25 GM/100 ML BTL IV ONE (02:25)
[2017-02-19] MEDS ORDERED: Sodium Chloride 0.9% 1,000 ML IV SCH (03:39)
[2017-02-19 05:23] LABS: BAND NEUTROPHILE 12 % (0-10); LYMPHOCYTE 7 % (20-50); METAMYELOCYTE 1 % (0-0); MONOCYTE 5 % (2-10); NEUTROPHILS 75 % (40-80); TOTAL CELLS COUNTED 100
[2017-02-19 05:24] LABS: HYPOCHROMIA 1+; PLATELET ESTIMATE ADEQUATE (NORMAL)
[2017-02-19] MEDS: Morphine Sulfate 2 mg/mL 1mL Syr IVP PRN ×2 (05:29→09:41)
[2017-02-19] MEDS: Sodium Chloride 0.9% 1,000 ML IV SCH ×2 (06:07→18:41)
[2017-02-19 06:27] LABS: HEMOGLOBIN 8.7 gm/dL (12-16); LYMPHOCYTE ABSOLUTE 1.7 Th/cmm (1.5-3.0); MEAN CELL VOLUME 88.2 fl (81-100); MEAN CORPUSCULAR HEMOGLOBIN 27.1 pg (27.0-31.0); MEAN CORPUSCULAR HGB CONC 30.7 pg (28.0-36.0); MONOCYTE ABSOLUTE 0.8 Th/cmm (0.3-1.0); NEUTROPHILE ABSOLUTE 20.1 Th/cmm (1.8-8.0); RED CELL DISTRIBUTION WIDTH 13.1 % (11.5-20.0)
[2017-02-19 06:38] LABS: INR 1.07 (0.5-1.4); PROTHROMBIN TIME (TEST) 11.1 SECONDS (9.5-11.5)
[2017-02-19 06:44] LABS: CALCIUM SERUM 8.7 mg/dL (8.6-10.3); CARBON DIOXIDE 30.1 mEq/L (21.0-31.0); CREATININE - SERUM 1.4 mg/dL (0.6-1.2); GFR AFRICAN-AMERICAN 47.9 ml/min (>90); GFR NON AFRICAN-AMERICAN 39.6 ml/min; POTASSIUM SERUM 5.1 mEq/L (3.5-5.1)
[2017-02-19 07:04] LABS: HEMATOCRIT 28.2 % (41.0-60); PLATELET COUNT 144 Th/cmm (150-400); WHITE BLOOD COUNT 22.6 Th/cmm (4.8-10.8)
[2017-02-19 07:49] LABS: TOTAL CELLS COUNTED 100
[2017-02-19 07:50] LABS: BAND NEUTROPHILE 25 % (0-10); LYMPHOCYTE 7 % (20-50); MONOCYTE 2 % (2-10); NEUTROPHILS 66 % (40-80); PLATELET ESTIMATE ADEQUATE (NORMAL)
[2017-02-19] MEDS ORDERED: Pantoprazole 80 MG in Sodium Chloride 0.9% 100 ML IV SCH (08:45)
--- NOTE | 2017-02-19 09:47 | Diagnostic Imaging Report ---
Exam: Portable chest x-ray. HISTORY: Hypotension. Findings: Portable examination of the chest at 0932 hours reviewed compared to prior study 08/24/2016. The study states cardiomegaly with superimposed congestive heart failure. Bilateral basilar infiltrates and effusions are noted. Left-sided pacemaker appreciated. Bony thorax remarkable for degenerative osteopenia. IMPRESSION: Cardiomegaly congestion Basilar infiltrates and effusions follow-up examination recommended.
--- NOTE | 2017-02-19 09:48 | Diagnostic Imaging Report ---
Exam: Acute abdominal series. HISTORY nausea vomiting. Multiple views of the abdomen reviewed. The study demonstrates distention stomach with air. Inferior vena cava filter visualized. The distention of small bowel consistent with ileus. Clinical correlation recommended. Bony structures are unremarkable for degenerative osteopenia. There is evidence for right lower lobe infiltrate and effusion. IMPRESSION: Ileus Air distention of stomach Most likely right lower lobe pneumonia and effusion. Clinical correlation follow-up dictation recommended
[2017-02-19] MEDS ORDERED: Hydrocodone/APAP 5mg/325mg Tab PO PRN (13:25)
[2017-02-19] MEDS ORDERED: HYDROCODONE PO SCH (18:00)
[2017-02-19] MEDS ORDERED: ACETAMINOPHEN PO SCH (18:00)
[2017-02-19] MEDS: Pantoprazole 80 MG in Sodium Chloride 0.9% 100 ML IV SCH ×2 (19:29→23:36)
[2017-02-19] MEDS: INSULIN ASPART SLIDING SCALE 100 UNITS/ML UNIT SUBQ SCH ×2 (19:32→22:13)
[2017-02-19] MEDS ORDERED: D5-0.9%NS 1,000 ML IV ONE (20:26)
[2017-02-19] MEDS ORDERED: Nystatin Cream 100,000 u/gm Cream 15 gm TP PRN (21:00)
[2017-02-19] MEDS ORDERED: Piperacillin Sodium/Tazobact 3.375 gm Vial IV ONE (21:13)
--- NOTE | 2017-02-19 22:31 | Consultation ---
DATE OF CONSULTATION: 02/19/2017 INPATIENT GASTROINTESTINAL CONSULTATION REFERRING PHYSICIAN: Dr. Yates. REASON FOR CONSULTATION: Nausea, vomiting, and possible GI bleeding. HISTORY OF PRESENT ILLNESS: A 71-year-old female from a nursing facility, had nausea, vomiting, and possible blood in it, allegedly had some imaging studies there that suggest she had gastric outlet obstruction and we do not have it for our records. The patient at the time of my interview denies having abdominal pain. Denies nausea or vomiting. She denies having any hematemesis or coffee ground emesis. She denies melena, hematochezia, or diarrhea. PAST MEDICAL HISTORY: Include hypertension, COPD, rheumatoid arthritis, and diabetes. PAST SURGICAL HISTORY: C-sections x3. FAMILY HISTORY: Noncontributory. SOCIAL HISTORY: Denies tobacco, alcohol, or IV drug usage. ALLERGIES: None. CURRENT MEDICATIONS: Morphine, norepinephrine, and Zofran. REVIEW OF SYSTEMS: A 10-point review of system was performed and the pertinent positive was the nausea and vomiting. All other systems were otherwise negative. PHYSICAL EXAMINATION: VITAL SIGNS: Temperature 97.5, breathing 16, pulse of 90, blood pressure 111/42, and satting 100%. GENERAL: No apparent distress. Eyes are anicteric. Normal conjunctivae. HEENT: Normocephalic and atraumatic. Moist mucous membranes. NECK: Soft and supple. CHEST: Coarse breath sounds. CARDIOVASCULAR: Regular rate and rhythm. ABDOMEN: Soft, nontender, and nondistended. SKIN: Warm and dry. EXTREMITIES: Reveal no cyanosis. PSYCHOLOGIC: Alert and oriented x3. LABORATORY DATA: Show white count 22.6, hemoglobin 8.7, and platelets of 144. INR 1.07. Total bilirubin 0.3, AST 16, ALT 6, and alkaline phosphatase 85. Lipase 10. IMPRESSION: A 71-year-old female with alleged nausea, vomiting, and possible vomiting of blood suggesting upper GI bleed is in the current ICU setting with hypotension, on pressors. The patient is not actively bleeding. She is not complaining of any abdominal complaints. Imaging test would be valuable to determine if there is such a gastric outlet obstruction. I would prefer that a CT scan be done, however, given the patient's labile blood pressure, a bedside abdominal series would be appropriate in the immediate setting. Once the patient stabilizes, a CT scan with contrast would be helpful. We could also consider an endoscopy when the patient is more stable from a blood pressure standpoint as well. The patient should be given Protonix to treat any potential upper GI bleeding. She should also have C. diff checked given the high white count to exclude the possibility of C. diff. Primary doctor and hospitalist should consider, perhaps an ID evaluation as well. Thank you for allowing me to participate. Please call me if any questions. JOB# [id number]
--- NOTE | 2017-02-19 23:40 | History & Physical ---
ADMIT DATE: 02/19/2017 CHIEF COMPLAINT: Vomiting of blood. HISTORY OF PRESENT ILLNESS: This is a 71-year-old female who was admitted from a half-way facility through the Emergency Room due to an episode of vomiting of blood. REVIEW OF SYSTEMS: GENERAL: This is a 71-year-old female that appears as stated. Denies fever. Denies chills. HEAD: Denies headache. Denies dizziness. EYES: Denies eye pain. Denies blurring of vision. NECK: Denies neck pain. Denies nuchal rigidity. CHEST: Denies any chest pain. Denies palpitation. PULMONARY: Denies shortness of breath. Denies coughing. GASTROINTESTINAL: Positive vomiting. Denies abdominal pain. Denies constipation. Denies diarrhea. MUSCULOSKELETAL: Denies muscle pain. Denies joint pain. SOCIAL HISTORY: The patient lives in a half-way facility prior to hospitalization. PAST MEDICAL HISTORY: Includes hypertension, osteoarthritis, diabetes mellitus and gastroesophageal reflux disease. PAST SURGICAL HISTORY: Includes cholecystectomy and appendectomy. FAMILY HISTORY: Unremarkable. PHYSICAL EXAMINATION: VITAL SIGNS: Temperature 98.7, heart rate of 90, respirations 18, blood pressure 131/62 and 99% on room air. HEENT: Head is atraumatic and normocephalic. Eyes: Bilateral conjunctivae are clear. Bilateral pupils are equally round and reactive. NECK: Supple. No JVD. CARDIOVASCULAR: S1 and S2 without murmur. LUNGS: Clear to auscultation. GASTROINTESTINAL: Soft and nontender without guarding. Positive bowel sounds. MUSCULOSKELETAL: No clubbing, no cyanosis noted. ASSESSMENT: 1. Upper gastrointestinal bleed. 2. Hypertension. 3. Diabetes mellitus. 4. Hypotension. 5. Coronary artery disease. 6. Chronic obstructive pulmonary disease. PLAN: We will keep the patient in the Intensive Care Unit. We will try to wean off the patient from vasopressors. We will keep the patient n.p.o. We will follow up with the GI doctor to monitor the patient's condition and behavior. We will do medication reconciliation as needed. Treatment plans were discussed with the patient's nurse. Treatment plans were discussed with Dr. Yates. JOB# [id number]
[2017-02-20] MEDS: Morphine Sulfate 2 mg/mL 1mL Syr IVP PRN ×5 (00:23→20:35)
[2017-02-20] MEDS ORDERED: Piperacillin Sodium/Tazobact 3.375 gm Vial IV ONE ×2 (02:49→06:01)
[2017-02-20] MEDS: INSULIN ASPART SLIDING SCALE 100 UNITS/ML UNIT SUBQ SCH ×4 (06:47→20:22)
--- NOTE | 2017-02-20 08:16 | GI Progress Note ---
Subjective - Review of Systems Subjective: denies abd pain and n/v wants to eat and go home refusing ct scan Objective - Results Result Diagrams: 02/19/17 04:11 02/19/17 04:11 Recent Labs: Laboratory Last Values WBC 22.6 Th/cmm (4.8-10.8) H* 02/19/17 04:11 RBC 3.20 Mil/cmm (3.80-5.20) L 02/19/17 04:11 Hgb 8.7 gm/dL (12-16) L 02/19/17 04:11 Hct 28.2 % (41.0-60) L D 02/19/17 04:11 MCV 88.2 fl (81-100) 02/19/17 04:11 MCH 27.1 pg (27.0-31.0) 02/19/17 04:11 MCHC Differential 30.7 pg (28.0-36.0) 02/19/17 04:11 RDW 13.1 % (11.5-20.0) 02/19/17 04:11 Plt Count 144 Th/cmm (150-400) L D 02/19/17 04:11 MPV 9.0 fl 02/19/17 04:11 Band Neutrophils % 25 % (0-10) H 02/19/17 04:11 Neutrophils (Manual) 66 % (40-80) 02/19/17 04:11 Lymphocytes 7 % (20-50) L 02/19/17 04:11 Monocytes 2 % (2-10) 02/19/17 04:11 Metamyelocytes 1 % (0-0) H 02/18/17 23:35 Hypochromia 1+ 02/18/17 23:35 Platelet Estimate ADEQUATE (NORMAL) 02/19/17 04:11 PT 11.1 SECONDS (9.5-11.5) 02/19/17 04:11 INR 1.07 (0.5-1.4) 02/19/17 04:11 Specimen Source Arterial 02/19/17 10:13 Sample Site RB 02/19/17 10:13 pH 7.30 (7.35-7.45) L 02/19/17 10:13 pCO2 67.0 mmHg (35.0-45.0) H* 02/19/17 10:13 pO2 58.0 mmHg (80.0-100.0) L 02/19/17 10:13 HCO3 28.3 mEq/L (20.0-26.0) H 02/19/17 10:13 Base Excess 4.7 mEq/L (-3.0-3.0) H 02/19/17 10:13 O2 Saturation 87.0 % (92.0-100.0) L 02/19/17 10:13 Jorje Test NA 02/19/17 10:13 Vent Rate NA 02/19/17 10:13 Inspired O2 28 02/19/17 10:13 Tidal Volume NA 02/19/17 10:13 PEEP NA 02/19/17 10:13 Pressure (ins/psv/peep) NA 02/19/17 10:13 Critical Value SH 02/19/17 10:13 Sodium 138 mEq/L (136-145) 02/19/17 04:11 Potassium 5.1 mEq/L (3.5-5.1) 02/19/17 04:11 Chloride 99 mEq/L (98-107) 02/19/17 04:11 Carbon Dioxide 30.1 mEq/L (21.0-31.0) 02/19/17 04:11 Anion Gap 14.0 (7.0-16.0) 02/19/17 04:11 BUN 60 mg/dL (7-25) H 02/19/17 04:11 Creatinine 1.4 mg/dL (0.6-1.2) H 02/19/17 04:11 Est GFR ( Amer) 47.9 ml/min (>90) 02/19/17 04:11 Est GFR (Non-Af Amer) 39.6 ml/min 02/19/17 04:11 BUN/Creatinine Ratio 42.9 02/19/17 04:11 Glucose 138 mg/dL (70-105) H 02/19/17 04:11 POC Glucose 132 MG/DL (70 - 105) H 02/20/17 06:18 Whole Bld Lactic Acid 1.95 mmol/L (0.60-1.99) 02/19/17 09:30 Calcium 8.7 mg/dL (8.6-10.3) 02/19/17 04:11 Total Bilirubin 0.3 mg/dL (0.3-1.0) 02/18/17 23:35 Direct Bilirubin 0.09 mg/dL (0.0-0.2) 02/18/17 23:35 AST 16 U/L (13-39) 02/18/17 23:35 ALT 6 U/L (7-52) L 02/18/17 23:35 Alkaline Phosphatase 85 U/L (34-104) 02/18/17 23:35 Total Protein 6.3 gm/dL (6.0-8.3) 02/18/17 23:35 Albumin 3.2 gm/dL (3.7-5.3) L 02/18/17 23:35 Globulin 3.1 gm/dL 02/18/17 23:35 Albumin/Globulin Ratio 1.0 (1.0-1.8) 02/18/17 23:35 Amylase 36 U/L (29-103) 02/18/17 23:35 Lipase 10 U/L (11-82) L 02/18/17 23:35 Blood Type A POSITIVE 02/19/17 01:55 Antibody Screen NEGATIVE 02/19/17 01:55 - Physical Exam Vitals and I&O: Vital Signs Temp 97.7 F 02/20/17 04:00 Pulse 86 02/20/17 07:28 Resp 18 02/20/17 07:28 BP 127/61 02/20/17 07:00 Pulse Ox 97 02/20/17 07:28 Intake & Output 02/19/17 02/20/17 02/20/17 18:59 06:59 18:59 Intake Total 1366.078 486.330 Output Total 400 Balance 1366.078 86.330 Weight (lbs) 72.575 kg 90.747 kg Intake: Intake, IV Amount 1116.078 486.330 Norepinephrine 4 mg In 116.078 97.663 Dextrose 5% 250 ml @ 5 MCG/MIN 19.05 mls/hr IV TITR PRN Rx#:[id number] Pantoprazole 80 mg In 41.167 Sodium Chloride 0.9% 100 ml @ 10 mls/hr IV Q10H [facility] Rx#:[id number] Piperacillin Sodium/ 100 Tazobact 3.375 gm In Sodium Chloride 0.9% 50 ml @ 100 mls/hr IV Q8HR [facility] Rx#:[id number] Sodium Chloride 0.9% 1, 1000 000 ml @ 150 mls/hr IV . Q6H40M [facility] Rx#:[id number] Oral 0 Other 250 Output: Urine 400 Other: # Voids 3 # Bowel Movements 0 0 Active Medications: Current Medications Acetaminophen (Tylenol) 650 mg PO Q4HR PRN PRN Reason: Pain (Mild) Stop: 04/20/17 12:01 Acetaminophen/Hydrocodone Bitart ([place] 5mg/325mg) 1 tab PO Q6H PRN PRN Reason: PAIN Stop: 04/20/17 13:24 Aspirin (Ecotrin) 81 mg PO DAILY [facility] Stop: 04/21/17 08:59 Docusate Sodium (Colace) 100 mg PO BID [facility] Stop: 04/20/17 16:59 Last Admin: 02/19/17 19:31 Dose: Not Given Enalapril Maleate (Vasotec) 5 mg PO DAILY [facility] Stop: 04/21/17 08:59 Furosemide (Lasix) 40 mg PO DAILY [facility] Stop: 04/21/17 08:59 Norepinephrine Bitartrate 4 mg (/ Dextrose) 254 mls @ 19.05 mls/hr IV TITR PRN ; Protocol; 5 MCG/MIN PRN Reason: BP MAINTENANCE (PER PROTOCOL) Stop: 04/20/17 02:29 Last Titration: 02/20/17 03:30 Dose: 0 mcg/min, 0 mls/hr Pantoprazole Sodium 80 mg/ (Sodium Chloride) 100 mls @ 10 mls/hr IV Q10H [facility] Stop: 04/20/17 08:59 Last Admin: 02/19/17 23:36 Dose: 10 mls/hr Piperacillin Sod/Tazobactam (Sod 3.375 gm/ Sodium Chloride) 50 mls @ 100 mls/ hr IV Q8HR [facility] Stop: 04/20/17 20:59 Last Infusion: 02/20/17 05:03 Dose: Infused Dextrose/Sodium Chloride (D5-0.9%Ns) 1,000 mls @ 50 mls/hr IV .Q20H ONE Stop: 02/20/17 16:25 Last Admin: 02/19/17 20:59 Dose: 50 mls/hr Insulin Aspart (Novolog Insulin Sliding Scale) 0 units SUBQ ACHS [facility] PRN Reason: Protocol Stop: 04/20/17 16:29 Last Admin: 02/20/17 06:47 Dose: Not Given Metoprolol Tartrate (Lopressor) 50 mg PO BID [facility] Stop: 04/20/17 16:59 Last Admin: 02/19/17 19:31 Dose: Not Given Miscellaneous (Vancomycin Iv Per Pharmacy) 1 ea MC PRN [facility] Stop: 04/20/17 20:29 Morphine Sulfate (Morphine) 1 mg IVP Q3H PRN PRN Reason: Pain (Moderate) Stop: 04/20/17 01:59 Last Admin: 02/20/17 04:18 Dose: 1 mg Nitroglycerin (Nitrostat) 0.4 mg SL Q5MIN PRN PRN Reason: Chest Pain Stop: 04/20/17 12:01 Nystatin (Mycostatin Cream) 1 appl TP BID PRN PRN Reason: SKIN EXCORIATIONS Stop: 04/20/17 20:59 Ondansetron HCl (Zofran) 4 mg IV Q6H PRN PRN Reason: Nausea Stop: 04/20/17 03:38 Assessment/Plan - Problem List Patient Problems: All Active Problems Acute kidney failure (Acute) 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 Azotemia (Acute) R79.89 Bradycardia (Acute) R00.1 COPD (chronic obstructive pulmonary disease) (Acute) Cardiomegaly (Acute) I51.7 Chest pain (Acute) R07.9 Decubitus ulcer of buttock, 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 - Assessment Assessment: 71 yo female with alleged gastric outlet obstruction per care home and er admission pt had kub showing gastric distension of unknown etiology this could be gastric outlet obstruction vs gastroparesis pt refusing ct abd pelvis or egd or any other work up she was made aware and understands that failure to have proper work up could lead to missed diagnosis, cancer, cure, treatment opportunity leading to early or unforseable disability 1.cont supp care 2.trial of po diet
[2017-02-20] MEDS: Multivitamin w/ Minerals Tab PO SCH (08:59)
--- NOTE | 2017-02-20 09:18 | General Progress Note ---
Subjective - Review of Systems Events since last encounter: in no acute distress patient awake Objective - Results Result Diagrams: 02/19/17 04:11 02/19/17 04:11 Recent Labs: Laboratory Last Values WBC 22.6 Th/cmm (4.8-10.8) H* 02/19/17 04:11 RBC 3.20 Mil/cmm (3.80-5.20) L 02/19/17 04:11 Hgb 8.7 gm/dL (12-16) L 02/19/17 04:11 Hct 28.2 % (41.0-60) L D 02/19/17 04:11 MCV 88.2 fl (81-100) 02/19/17 04:11 MCH 27.1 pg (27.0-31.0) 02/19/17 04:11 MCHC Differential 30.7 pg (28.0-36.0) 02/19/17 04:11 RDW 13.1 % (11.5-20.0) 02/19/17 04:11 Plt Count 144 Th/cmm (150-400) L D 02/19/17 04:11 MPV 9.0 fl 02/19/17 04:11 Band Neutrophils % 25 % (0-10) H 02/19/17 04:11 Neutrophils (Manual) 66 % (40-80) 02/19/17 04:11 Lymphocytes 7 % (20-50) L 02/19/17 04:11 Monocytes 2 % (2-10) 02/19/17 04:11 Metamyelocytes 1 % (0-0) H 02/18/17 23:35 Hypochromia 1+ 02/18/17 23:35 Platelet Estimate ADEQUATE (NORMAL) 02/19/17 04:11 PT 11.1 SECONDS (9.5-11.5) 02/19/17 04:11 INR 1.07 (0.5-1.4) 02/19/17 04:11 Specimen Source Arterial 02/19/17 10:13 Sample Site RB 02/19/17 10:13 pH 7.30 (7.35-7.45) L 02/19/17 10:13 pCO2 67.0 mmHg (35.0-45.0) H* 02/19/17 10:13 pO2 58.0 mmHg (80.0-100.0) L 02/19/17 10:13 HCO3 28.3 mEq/L (20.0-26.0) H 02/19/17 10:13 Base Excess 4.7 mEq/L (-3.0-3.0) H 02/19/17 10:13 O2 Saturation 87.0 % (92.0-100.0) L 02/19/17 10:13 Jorje Test NA 02/19/17 10:13 Vent Rate NA 02/19/17 10:13 Inspired O2 28 02/19/17 10:13 Tidal Volume NA 02/19/17 10:13 PEEP NA 02/19/17 10:13 Pressure (ins/psv/peep) NA 02/19/17 10:13 Critical Value SH 02/19/17 10:13 Sodium 138 mEq/L (136-145) 02/19/17 04:11 Potassium 5.1 mEq/L (3.5-5.1) 02/19/17 04:11 Chloride 99 mEq/L (98-107) 02/19/17 04:11 Carbon Dioxide 30.1 mEq/L (21.0-31.0) 02/19/17 04:11 Anion Gap 14.0 (7.0-16.0) 02/19/17 04:11 BUN 60 mg/dL (7-25) H 02/19/17 04:11 Creatinine 1.4 mg/dL (0.6-1.2) H 02/19/17 04:11 Est GFR ( Amer) 47.9 ml/min (>90) 02/19/17 04:11 Est GFR (Non-Af Amer) 39.6 ml/min 02/19/17 04:11 BUN/Creatinine Ratio 42.9 02/19/17 04:11 Glucose 138 mg/dL (70-105) H 02/19/17 04:11 POC Glucose 132 MG/DL (70 - 105) H 02/20/17 06:18 Whole Bld Lactic Acid 1.95 mmol/L (0.60-1.99) 02/19/17 09:30 Calcium 8.7 mg/dL (8.6-10.3) 02/19/17 04:11 Total Bilirubin 0.3 mg/dL (0.3-1.0) 02/18/17 23:35 Direct Bilirubin 0.09 mg/dL (0.0-0.2) 02/18/17 23:35 AST 16 U/L (13-39) 02/18/17 23:35 ALT 6 U/L (7-52) L 02/18/17 23:35 Alkaline Phosphatase 85 U/L (34-104) 02/18/17 23:35 Total Protein 6.3 gm/dL (6.0-8.3) 02/18/17 23:35 Albumin 3.2 gm/dL (3.7-5.3) L 02/18/17 23:35 Globulin 3.1 gm/dL 02/18/17 23:35 Albumin/Globulin Ratio 1.0 (1.0-1.8) 02/18/17 23:35 Amylase 36 U/L (29-103) 02/18/17 23:35 Lipase 10 U/L (11-82) L 02/18/17 23:35 Blood Type A POSITIVE 02/19/17 01:55 Antibody Screen NEGATIVE 02/19/17 01:55 - Physical Exam Vitals and I&O: Vital Signs Temp 97.4 F 02/20/17 08:00 Pulse 85 02/20/17 08:59 Resp 16 02/20/17 08:00 BP 110/65 02/20/17 08:59 Pulse Ox 95 02/20/17 08:00 Intake & Output 02/19/17 02/20/17 02/20/17 18:59 06:59 18:59 Intake Total 1366.078 486.330 Output Total 400 Balance 1366.078 86.330 Weight (lbs) 72.575 kg 90.747 kg Intake: Intake, IV Amount 1116.078 486.330 Norepinephrine 4 mg In 116.078 97.663 Dextrose 5% 250 ml @ 5 MCG/MIN 19.05 mls/hr IV TITR PRN Rx#:[id number] Pantoprazole 80 mg In 41.167 Sodium Chloride 0.9% 100 ml @ 10 mls/hr IV Q10H [facility] Rx#:[id number] Piperacillin Sodium/ 100 Tazobact 3.375 gm In Sodium Chloride 0.9% 50 ml @ 100 mls/hr IV Q8HR [facility] Rx#:[id number] Sodium Chloride 0.9% 1, 1000 000 ml @ 150 mls/hr IV . Q6H40M [facility] Rx#:[id number] Oral 0 Other 250 Output: Urine 400 Other: # Voids 3 # Bowel Movements 0 0 Active Medications: Current Medications Acetaminophen (Tylenol) 650 mg PO Q4HR PRN PRN Reason: Pain (Mild) Stop: 04/20/17 12:01 Acetaminophen/Hydrocodone Bitart ([place] 5mg/325mg) 1 tab PO Q6H PRN PRN Reason: PAIN Stop: 04/20/17 13:24 Aspirin (Ecotrin) 81 mg PO DAILY [facility] Stop: 04/21/17 08:59 Last Admin: 02/20/17 08:58 Dose: 81 mg Docusate Sodium (Colace) 100 mg PO BID [facility] Stop: 04/20/17 16:59 Last Admin: 02/20/17 08:59 Dose: Not Given Enalapril Maleate (Vasotec) 5 mg PO DAILY [facility] Stop: 04/21/17 08:59 Last Admin: 02/20/17 08:59 Dose: Not Given Furosemide (Lasix) 40 mg PO DAILY [facility] Stop: 04/21/17 08:59 Last Admin: 02/20/17 08:58 Dose: 40 mg Norepinephrine Bitartrate 4 mg (/ Dextrose) 254 mls @ 19.05 mls/hr IV TITR PRN ; Protocol; 5 MCG/MIN PRN Reason: BP MAINTENANCE (PER PROTOCOL) Stop: 04/20/17 02:29 Last Titration: 02/20/17 03:30 Dose: 0 mcg/min, 0 mls/hr Pantoprazole Sodium 80 mg/ (Sodium Chloride) 100 mls @ 10 mls/hr IV Q10H [facility] Stop: 04/20/17 08:59 Last Admin: 02/19/17 23:36 Dose: 10 mls/hr Piperacillin Sod/Tazobactam (Sod 3.375 gm/ Sodium Chloride) 50 mls @ 100 mls/ hr IV Q8HR [facility] Stop: 04/20/17 20:59 Last Infusion: 02/20/17 05:03 Dose: Infused Dextrose/Sodium Chloride (D5-0.9%Ns) 1,000 mls @ 50 mls/hr IV .Q20H [facility] Stop: 02/20/17 16:25 Last Admin: 02/19/17 20:59 Dose: 50 mls/hr Vancomycin HCl 1.25 gm/ (Dextrose) 250 mls @ 165 mls/hr IV Q12HR@0900,2100 [facility] Stop: 04/21/17 10:59 Insulin Aspart (Novolog Insulin Sliding Scale) 0 units SUBQ ACHS [facility] PRN Reason: Protocol Stop: 04/20/17 16:29 Last Admin: 02/20/17 06:47 Dose: Not Given Metoprolol Tartrate (Lopressor) 50 mg PO BID [facility] Stop: 04/20/17 16:59 Last Admin: 02/20/17 08:59 Dose: Not Given Miscellaneous (Vancomycin Iv Per Pharmacy) 1 ea MC PRN [facility] Stop: 04/20/17 20:29 Morphine Sulfate (Morphine) 1 mg IVP Q3H PRN PRN Reason: Pain (Moderate) Stop: 04/20/17 01:59 Last Admin: 02/20/17 08:58 Dose: 1 mg Nitroglycerin (Nitrostat) 0.4 mg SL Q5MIN PRN PRN Reason: Chest Pain Stop: 04/20/17 12:01 Nystatin (Mycostatin Cream) 1 appl TP BID PRN PRN Reason: SKIN EXCORIATIONS Stop: 04/20/17 20:59 Ondansetron HCl (Zofran) 4 mg IV Q6H PRN PRN Reason: Nausea Stop: 04/20/17 03:38 General: No acute distress, no Cooperative HEENT: Atraumatic Neck: Supple, JVD, Thyromegaly Assessment/Plan - Problem List Patient Problems: All Active Problems Acute kidney failure (Acute) 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
[2017-02-20] MEDS ORDERED: IOHEXOL 300mgI/mL 50 ML VIAL PO ONE (11:54)
[2017-02-20 16:03] LABS: % BASOPHILS 0.4 % (0.0-2.0); % EOSINOPHILS 3.4 % (0.0-5.0); % LYMPHOCYTES 11.3 % (20.0-50.0); % MONOCYTES 5.6 % (2.0-10.0); % NEUTROPHILS 79.3 % (40.0-80.0); EOSINOPHILE ABSOLUTE 0.4 Th/cmm (0.1-0.4); HEMOGLOBIN 8.1 gm/dL (12-16); LYMPHOCYTE ABSOLUTE 1.4 Th/cmm (1.5-3.0); MEAN CELL VOLUME 88.3 fl (81-100); MEAN CORPUSCULAR HEMOGLOBIN 28.6 pg (27.0-31.0); MEAN CORPUSCULAR HGB CONC 32.4 pg (28.0-36.0); MEAN PLATELET VOLUME 7.9 fl; MONOCYTE ABSOLUTE 0.7 Th/cmm (0.3-1.0); NEUTROPHILE ABSOLUTE 9.8 Th/cmm (1.8-8.0); PLATELET COUNT 170 Th/cmm (150-400); RED BLOOD COUNT 2.84 Mil/cmm (3.80-5.20); RED CELL DISTRIBUTION WIDTH 12.9 % (11.5-20.0)
[2017-02-20 16:05] LABS: WHITE BLOOD COUNT 12.3 Th/cmm (4.8-10.8)
[2017-02-20 16:12] LABS: ANION GAP 9.6 (7.0-16.0); CALCIUM SERUM 8.3 mg/dL (8.6-10.3); CARBON DIOXIDE 27.9 mEq/L (21.0-31.0); CREATININE - SERUM 1.6 mg/dL (0.6-1.2); GFR AFRICAN-AMERICAN 41.1 ml/min (>90); POTASSIUM SERUM 4.5 mEq/L (3.5-5.1)
[2017-02-20 16:22] LABS: URINE MICROSCOPIC INDICATED? YES; URINE SOURCE FOLEY PORT
[2017-02-20] MEDS ORDERED: Probiotic Screen MC PRN (16:26)
[2017-02-20 16:35] LABS: URINE BILIRUBIN NEGATIVE (NEGATIVE); URINE BLOOD SMALL (NEGATIVE); URINE GLUCOSE (UA) NEGATIVE (NEGATIVE); URINE KETONE NEGATIVE (NEGATIVE); URINE LEUKOCYTE ESTERASE LARGE (NEGATIVE); URINE NITRATE NEGATIVE (NEGATIVE); URINE PH 5.5 (4.6 - 8.0); URINE PROTEIN NEGATIVE (NEGATIVE); URINE UROBILINOGEN 0.2 E.U./dL (0.2 - 1.0)
[2017-02-20 16:39] LABS: URINE CLARITY CLOUDY (CLEAR); URINE COLOR YELLOW
[2017-02-20 16:40] LABS: URINE BACTERIA MODERATE /hpf (NONE SEEN); URINE EPITHELIAL CELLS FEW /lpf (FEW); URINE YEAST MODERATE /hpf (NONE SEEN)
[2017-02-20 16:42] LABS: URINE WBC 25-50 /hpf (0-5)
[2017-02-20] MEDS: Pantoprazole 80 MG in Sodium Chloride 0.9% 100 ML IV SCH (17:02)
[2017-02-21] MEDS: Morphine Sulfate 2 mg/mL 1mL Syr IVP PRN ×3 (02:07→21:25)
[2017-02-21] MEDS: INSULIN ASPART SLIDING SCALE 100 UNITS/ML UNIT SUBQ SCH ×4 (07:24→21:31)
--- NOTE | 2017-02-21 08:28 | GI Progress Note ---
Subjective - Review of Systems Subjective: denies abd pain and n/v sunny po diet Objective - Results Result Diagrams: 02/20/17 15:54 02/20/17 15:54 Recent Labs: Laboratory Last Values WBC 12.3 Th/cmm (4.8-10.8) H D 02/20/17 15:54 RBC 2.84 Mil/cmm (3.80-5.20) L 02/20/17 15:54 Hgb 8.1 gm/dL (12-16) L 02/20/17 15:54 Hct 25.0 % (41.0-60) L D 02/20/17 15:54 MCV 88.3 fl (81-100) 02/20/17 15:54 MCH 28.6 pg (27.0-31.0) 02/20/17 15:54 MCHC Differential 32.4 pg (28.0-36.0) 02/20/17 15:54 RDW 12.9 % (11.5-20.0) 02/20/17 15:54 Plt Count 170 Th/cmm (150-400) 02/20/17 15:54 MPV 7.9 fl 02/20/17 15:54 Neutrophils % 79.3 % (40.0-80.0) 02/20/17 15:54 Band Neutrophils % 25 % (0-10) H 02/19/17 04:11 Lymphocytes % 11.3 % (20.0-50.0) L 02/20/17 15:54 Monocytes % 5.6 % (2.0-10.0) 02/20/17 15:54 Eosinophils % 3.4 % (0.0-5.0) 02/20/17 15:54 Basophils % 0.4 % (0.0-2.0) 02/20/17 15:54 Neutrophils (Manual) 66 % (40-80) 02/19/17 04:11 Lymphocytes 7 % (20-50) L 02/19/17 04:11 Monocytes 2 % (2-10) 02/19/17 04:11 Metamyelocytes 1 % (0-0) H 02/18/17 23:35 Hypochromia 1+ 02/18/17 23:35 Platelet Estimate ADEQUATE (NORMAL) 02/19/17 04:11 PT 11.1 SECONDS (9.5-11.5) 02/19/17 04:11 INR 1.07 (0.5-1.4) 02/19/17 04:11 Specimen Source Arterial 02/19/17 10:13 Sample Site RB 02/19/17 10:13 pH 7.30 (7.35-7.45) L 02/19/17 10:13 pCO2 67.0 mmHg (35.0-45.0) H* 02/19/17 10:13 pO2 58.0 mmHg (80.0-100.0) L 02/19/17 10:13 HCO3 28.3 mEq/L (20.0-26.0) H 02/19/17 10:13 Base Excess 4.7 mEq/L (-3.0-3.0) H 02/19/17 10:13 O2 Saturation 87.0 % (92.0-100.0) L 02/19/17 10:13 Jorje Test NA 02/19/17 10:13 Vent Rate NA 02/19/17 10:13 Inspired O2 28 02/19/17 10:13 Tidal Volume NA 02/19/17 10:13 PEEP NA 02/19/17 10:13 Pressure (ins/psv/peep) NA 02/19/17 10:13 Critical Value SH 02/19/17 10:13 Sodium 137 mEq/L (136-145) 02/20/17 15:54 Potassium 4.5 mEq/L (3.5-5.1) 02/20/17 15:54 Chloride 104 mEq/L (98-107) 02/20/17 15:54 Carbon Dioxide 27.9 mEq/L (21.0-31.0) 02/20/17 15:54 Anion Gap 9.6 (7.0-16.0) 02/20/17 15:54 BUN 55 mg/dL (7-25) H 02/20/17 15:54 Creatinine 1.6 mg/dL (0.6-1.2) H 02/20/17 15:54 Est GFR ( Amer) 41.1 ml/min (>90) 02/20/17 15:54 Est GFR (Non-Af Amer) 34.0 ml/min 02/20/17 15:54 BUN/Creatinine Ratio 34.4 02/20/17 15:54 Glucose 137 mg/dL (70-105) H 02/20/17 15:54 POC Glucose 127 MG/DL (70 - 105) H 02/21/17 06:42 Whole Bld Lactic Acid 1.95 mmol/L (0.60-1.99) 02/19/17 09:30 Calcium 8.3 mg/dL (8.6-10.3) L 02/20/17 15:54 Total Bilirubin 0.3 mg/dL (0.3-1.0) 02/18/17 23:35 Direct Bilirubin 0.09 mg/dL (0.0-0.2) 02/18/17 23:35 AST 16 U/L (13-39) 02/18/17 23:35 ALT 6 U/L (7-52) L 02/18/17 23:35 Alkaline Phosphatase 85 U/L (34-104) 02/18/17 23:35 Total Protein 6.3 gm/dL (6.0-8.3) 02/18/17 23:35 Albumin 3.2 gm/dL (3.7-5.3) L 02/18/17 23:35 Globulin 3.1 gm/dL 02/18/17 23:35 Albumin/Globulin Ratio 1.0 (1.0-1.8) 02/18/17 23:35 Amylase 36 U/L (29-103) 02/18/17 23:35 Lipase 10 U/L (11-82) L 02/18/17 23:35 Urine Source [place] 02/20/17 16:15 Urine Color YELLOW 02/20/17 16:15 Urine Clarity CLOUDY (CLEAR) H 02/20/17 16:15 Urine pH 5.5 (4.6 - 8.0) 02/20/17 16:15 Ur Specific [place] 1.020 (1.005-1.030) 02/20/17 16:15 Urine Protein NEGATIVE mg/dL (NEGATIVE) 02/20/17 16:15 Urine Glucose (UA) NEGATIVE mg/dL (NEGATIVE) 02/20/17 16:15 Urine Ketones NEGATIVE mg/dL (NEGATIVE) 02/20/17 16:15 Urine Blood SMALL (NEGATIVE) H 02/20/17 16:15 Urine Nitrate NEGATIVE (NEGATIVE) 02/20/17 16:15 Urine Bilirubin NEGATIVE (NEGATIVE) 02/20/17 16:15 Urine Urobilinogen 0.2 E.U./dL (0.2 - 1.0) 02/20/17 16:15 Ur Leukocyte Esterase LARGE (NEGATIVE) H 02/20/17 16:15 Urine RBC 2-5 /hpf (0-5) 02/20/17 16:15 Urine WBC 25-50 /hpf (0-5) H 02/20/17 16:15 Ur Epithelial Cells FEW /lpf (FEW) 02/20/17 16:15 Urine Bacteria MODERATE /hpf (NONE SEEN) H 02/20/17 16:15 Urine Yeast MODERATE /hpf (NONE SEEN) H 02/20/17 16:15 Blood Type A POSITIVE 02/19/17 01:55 Antibody Screen NEGATIVE 02/19/17 01:55 - Physical Exam Vitals and I&O: Vital Signs Temp 98.1 F 02/21/17 04:00 Pulse 83 02/21/17 07:21 Resp 21 02/21/17 07:21 BP 100/45 02/21/17 07:00 Pulse Ox 98 02/21/17 07:21 Intake & Output 02/20/17 02/21/17 02/21/17 18:59 06:59 18:59 Intake Total 400 450 0 Output Total 0 Balance 400 450 0 Weight (lbs) 97.023 kg Intake: Intake, IV Amount 400 450 Pantoprazole 80 mg In 100 100 Sodium Chloride 0.9% 100 ml @ 10 mls/hr IV Q10H [facility] Rx#:[id number] Piperacillin Sodium/ 50 100 Tazobact 3.375 gm In Sodium Chloride 0.9% 50 ml @ 100 mls/hr IV Q8HR [facility] Rx#:[id number] Vancomycin HCl 1.25 gm In 250 250 Dextrose 5% 250 ml @ 165 mls/hr IV Q12HR@0900, 2100 [facility] Rx#:[id number] Tube Feeding 0 TPN/PPN 0 Blood Product 0 Lipid 0 Albumin 0 Other 0 Output: Gastric Drainage 0 Urine 0 Stool 0 Urine/Stool Mix 0 Emesis 0 Hemodialysis 0 Other 0 Other: # Voids 0 # Bowel Movements 0 Active Medications: Current Medications Acetaminophen (Tylenol) 650 mg PO Q4HR PRN PRN Reason: Pain (Mild) Stop: 04/20/17 12:01 Acetaminophen/Hydrocodone Bitart ([place] 5mg/325mg) 1 tab PO Q6H PRN PRN Reason: PAIN Stop: 04/20/17 13:24 Aspirin (Ecotrin) 81 mg PO DAILY [facility] Stop: 04/21/17 08:59 Last Admin: 02/20/17 08:58 Dose: 81 mg Docusate Sodium (Colace) 100 mg PO BID [facility] Stop: 04/20/17 16:59 Last Admin: 02/20/17 19:12 Dose: Not Given Enalapril Maleate (Vasotec) 5 mg PO DAILY [facility] Stop: 04/21/17 08:59 Last Admin: 02/20/17 08:59 Dose: Not Given Furosemide (Lasix) 40 mg PO DAILY [facility] Stop: 04/21/17 08:59 Last Admin: 02/20/17 08:58 Dose: 40 mg Norepinephrine Bitartrate 4 mg (/ Dextrose) 254 mls @ 19.05 mls/hr IV TITR PRN ; Protocol; 5 MCG/MIN PRN Reason: BP MAINTENANCE (PER PROTOCOL) Stop: 04/20/17 02:29 Last Titration: 02/20/17 03:30 Dose: 0 mcg/min, 0 mls/hr Pantoprazole Sodium 80 mg/ (Sodium Chloride) 100 mls @ 10 mls/hr IV Q10H [facility] Stop: 04/20/17 08:59 Last Infusion: 02/21/17 03:15 Dose: Infused Piperacillin Sod/Tazobactam (Sod 3.375 gm/ Sodium Chloride) 50 mls @ 100 mls/ hr IV Q8HR [facility] Stop: 04/20/17 20:59 Last Infusion: 02/21/17 06:00 Dose: Infused Vancomycin HCl 1.25 gm/ (Dextrose) 250 mls @ 165 mls/hr IV Q12HR@0900,2100 [facility] Stop: 04/21/17 10:59 Last Infusion: 02/20/17 22:45 Dose: Infused Insulin Aspart (Novolog Insulin Sliding Scale) 0 units SUBQ ACHS PATRIA PRN Reason: Protocol Stop: 04/20/17 16:29 Last Admin: 02/21/17 07:24 Dose: Not Given Metoprolol Tartrate (Lopressor) 50 mg PO BID [facility] Stop: 04/20/17 16:59 Last Admin: 02/20/17 16:47 Dose: Not Given Miscellaneous (Vancomycin Iv Per Pharmacy) 1 ea [facility] PRN PATRIA Stop: 04/20/17 20:29 Miscellaneous (Probiotic Screen) 1 ea [facility] PRN PRN PRN Reason: PROTOCOL Stop: 04/21/17 16:25 Morphine Sulfate (Morphine) 1 mg IVP Q3H PRN PRN Reason: Pain (Moderate) Stop: 04/20/17 01:59 Last Admin: 02/21/17 02:07 Dose: 1 mg Nitroglycerin (Nitrostat) 0.4 mg SL Q5MIN PRN PRN Reason: Chest Pain Stop: 04/20/17 12:01 Nystatin (Nystop) 100,000 units TP BID PRN PRN Reason: SKIN EXCORIATIONS Stop: 04/21/17 15:35 Ondansetron HCl (Zofran) 4 mg IV Q6H PRN PRN Reason: Nausea Stop: 04/20/17 03:38 General: No acute distress, no Cooperative HEENT: Atraumatic Neck: Supple, JVD, Thyromegaly Assessment/Plan - Problem List Patient Problems: All Active Problems Acute kidney failure (Acute) 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 Azotemia (Acute) R79.89 Bradycardia (Acute) R00.1 COPD (chronic obstructive pulmonary disease) (Acute) Cardiomegaly (Acute) I51.7 Chest pain (Acute) R07.9 Decubitus ulcer of buttock, 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 - Assessment Assessment: 71 yo female with alleged gastric outlet obstruction per longterm and er admission pt had kub showing gastric distension of unknown etiology this could be gastric outlet obstruction vs gastroparesis pt agreed to ct abd pelvis 1.cont supp care 2.await ct abd pelvis results
[2017-02-21] MEDS: Multivitamin w/ Minerals Tab PO SCH (09:51)
--- NOTE | 2017-02-21 10:22 | Diagnostic Imaging Report ---
CT abdomen and pelvis without intravenous contrast Indication: Nausea vomiting and abdominal pain Comparison: None, Technique: Axial images were obtained from the lung bases to the bilateral proximal femurs without IV contrast. Oral contrast was administered. Coronal reconstructions were made. total DLP: 646, CTDI18.1 FINDINGS: Exam is limited due to body habitus. Bilateral small effusions and bibasal consolidative changes are noted. Cardiomegaly is noted with partially visualized pericardial effusion. Cardiac pacemaker leads are noted with streak artifact limiting assessment of these regions. Evaluation of the solid organs is limited due to lack of IV contrast. No evidence of focal hepatic lesions. The patient is status post cholecystectomy. There is generalized prominence of the extrahepatic biliary system. No focal splenic lesions. Pancreatic gland atrophy is noted with no evidence of focal lesions. No focal adrenal lesions. No evidence of hydronephrosis or nephrolithiasis. Mild nonspecific bilateral perinephric inflammatory changes are noted. An infrarenal IVC filter is noted. Uterine 1.5 cm calcification is noted. Collapse uterus urinary bladder is noted containing a King catheter. Nonspecific gas-filled loops of bowel are noted without evidence of obstruction. Minimal diverticulosis is noted without diverticulitis. No evidence of appendicitis. Generalized fluid-filled loops of bowel are noted. 3 cm calcified lymph node of the lower abdomen is noted and probably due to old infectious or inflammatory process. Small fat-containing umbilical hernia is noted with mild surrounding inflammatory changes. Mild anasarca is noted. Diffuse atherosclerotic vascular disease is noted. Degenerative changes of the spine and pelvis are noted. Advanced compression fracture of L1 is noted with 4 to 5 mm retropulsion. This appears to be chronic. Osteopenia is noted. Postsurgical changes of right femur are noted. IMPRESSION: Generalized gas and fluid-filled loops of bowel without evidence of small bowel obstruction. A mild colonic ileus may be considered. Evidence of prior cholecystectomy. Generalized prominence of the common bile duct is noted which may be related to patient's cholecystectomy. Minimal diverticulosis without evidence of diverticulitis. Collapsed urinary bladder containing King catheter Small fat-containing umbilical hernia with mild surrounding inflammatory changes. 2 cm calcified fibroid uterus IVC filter noted. Mild anasarca Bilateral small effusions and bibasal infiltrates and consolidative changes. Cardiomegaly with cardiac pacemaker noted. Partially visualized pericardial effusion is seen, probably moderate size. Advanced compression fracture of L1 with 4 to 5 mm retropulsion which appears to be chronic. Osteopenia is also noted.
--- NOTE | 2017-02-21 10:49 | General Progress Note ---
Subjective - Review of Systems Events since last encounter: no change Objective - Results Result Diagrams: 02/20/17 15:54 02/20/17 15:54 Recent Labs: Laboratory Last Values WBC 12.3 Th/cmm (4.8-10.8) H D 02/20/17 15:54 RBC 2.84 Mil/cmm (3.80-5.20) L 02/20/17 15:54 Hgb 8.1 gm/dL (12-16) L 02/20/17 15:54 Hct 25.0 % (41.0-60) L D 02/20/17 15:54 MCV 88.3 fl (81-100) 02/20/17 15:54 MCH 28.6 pg (27.0-31.0) 02/20/17 15:54 MCHC Differential 32.4 pg (28.0-36.0) 02/20/17 15:54 RDW 12.9 % (11.5-20.0) 02/20/17 15:54 Plt Count 170 Th/cmm (150-400) 02/20/17 15:54 MPV 7.9 fl 02/20/17 15:54 Neutrophils % 79.3 % (40.0-80.0) 02/20/17 15:54 Band Neutrophils % 25 % (0-10) H 02/19/17 04:11 Lymphocytes % 11.3 % (20.0-50.0) L 02/20/17 15:54 Monocytes % 5.6 % (2.0-10.0) 02/20/17 15:54 Eosinophils % 3.4 % (0.0-5.0) 02/20/17 15:54 Basophils % 0.4 % (0.0-2.0) 02/20/17 15:54 Neutrophils (Manual) 66 % (40-80) 02/19/17 04:11 Lymphocytes 7 % (20-50) L 02/19/17 04:11 Monocytes 2 % (2-10) 02/19/17 04:11 Metamyelocytes 1 % (0-0) H 02/18/17 23:35 Hypochromia 1+ 02/18/17 23:35 Platelet Estimate ADEQUATE (NORMAL) 02/19/17 04:11 PT 11.1 SECONDS (9.5-11.5) 02/19/17 04:11 INR 1.07 (0.5-1.4) 02/19/17 04:11 Specimen Source Arterial 02/19/17 10:13 Sample Site RB 02/19/17 10:13 pH 7.30 (7.35-7.45) L 02/19/17 10:13 pCO2 67.0 mmHg (35.0-45.0) H* 02/19/17 10:13 pO2 58.0 mmHg (80.0-100.0) L 02/19/17 10:13 HCO3 28.3 mEq/L (20.0-26.0) H 02/19/17 10:13 Base Excess 4.7 mEq/L (-3.0-3.0) H 02/19/17 10:13 O2 Saturation 87.0 % (92.0-100.0) L 02/19/17 10:13 Jorje Test NA 02/19/17 10:13 Vent Rate NA 02/19/17 10:13 Inspired O2 28 02/19/17 10:13 Tidal Volume NA 02/19/17 10:13 PEEP NA 02/19/17 10:13 Pressure (ins/psv/peep) NA 02/19/17 10:13 Critical Value SH 02/19/17 10:13 Sodium 137 mEq/L (136-145) 02/20/17 15:54 Potassium 4.5 mEq/L (3.5-5.1) 02/20/17 15:54 Chloride 104 mEq/L (98-107) 02/20/17 15:54 Carbon Dioxide 27.9 mEq/L (21.0-31.0) 02/20/17 15:54 Anion Gap 9.6 (7.0-16.0) 02/20/17 15:54 BUN 55 mg/dL (7-25) H 02/20/17 15:54 Creatinine 1.6 mg/dL (0.6-1.2) H 02/20/17 15:54 Est GFR ( Amer) 41.1 ml/min (>90) 02/20/17 15:54 Est GFR (Non-Af Amer) 34.0 ml/min 02/20/17 15:54 BUN/Creatinine Ratio 34.4 02/20/17 15:54 Glucose 137 mg/dL (70-105) H 02/20/17 15:54 POC Glucose 127 MG/DL (70 - 105) H 02/21/17 06:42 Whole Bld Lactic Acid 1.95 mmol/L (0.60-1.99) 02/19/17 09:30 Calcium 8.3 mg/dL (8.6-10.3) L 02/20/17 15:54 Total Bilirubin 0.3 mg/dL (0.3-1.0) 02/18/17 23:35 Direct Bilirubin 0.09 mg/dL (0.0-0.2) 02/18/17 23:35 AST 16 U/L (13-39) 02/18/17 23:35 ALT 6 U/L (7-52) L 02/18/17 23:35 Alkaline Phosphatase 85 U/L (34-104) 02/18/17 23:35 Total Protein 6.3 gm/dL (6.0-8.3) 02/18/17 23:35 Albumin 3.2 gm/dL (3.7-5.3) L 02/18/17 23:35 Globulin 3.1 gm/dL 02/18/17 23:35 Albumin/Globulin Ratio 1.0 (1.0-1.8) 02/18/17 23:35 Amylase 36 U/L (29-103) 02/18/17 23:35 Lipase 10 U/L (11-82) L 02/18/17 23:35 Urine Source [place] 02/20/17 16:15 Urine Color YELLOW 02/20/17 16:15 Urine Clarity CLOUDY (CLEAR) H 02/20/17 16:15 Urine pH 5.5 (4.6 - 8.0) 02/20/17 16:15 Ur Specific [place] 1.020 (1.005-1.030) 02/20/17 16:15 Urine Protein NEGATIVE mg/dL (NEGATIVE) 02/20/17 16:15 Urine Glucose (UA) NEGATIVE mg/dL (NEGATIVE) 02/20/17 16:15 Urine Ketones NEGATIVE mg/dL (NEGATIVE) 02/20/17 16:15 Urine Blood SMALL (NEGATIVE) H 02/20/17 16:15 Urine Nitrate NEGATIVE (NEGATIVE) 02/20/17 16:15 Urine Bilirubin NEGATIVE (NEGATIVE) 02/20/17 16:15 Urine Urobilinogen 0.2 E.U./dL (0.2 - 1.0) 02/20/17 16:15 Ur Leukocyte Esterase LARGE (NEGATIVE) H 02/20/17 16:15 Urine RBC 2-5 /hpf (0-5) 02/20/17 16:15 Urine WBC 25-50 /hpf (0-5) H 02/20/17 16:15 Ur Epithelial Cells FEW /lpf (FEW) 02/20/17 16:15 Urine Bacteria MODERATE /hpf (NONE SEEN) H 02/20/17 16:15 Urine Yeast MODERATE /hpf (NONE SEEN) H 02/20/17 16:15 Blood Type A POSITIVE 02/19/17 01:55 Antibody Screen NEGATIVE 02/19/17 01:55 - Physical Exam Vitals and I&O: Vital Signs Temp 97.8 F 02/21/17 08:00 Pulse 81 02/21/17 10:00 Resp 16 02/21/17 10:00 BP 105/52 02/21/17 10:00 Pulse Ox 98 02/21/17 10:00 Intake & Output 02/20/17 02/21/17 02/21/17 18:59 06:59 18:59 Intake Total 400 450 0 Output Total 0 Balance 400 450 0 Weight (lbs) 97.023 kg Intake: Intake, IV Amount 400 450 Pantoprazole 80 mg In 100 100 Sodium Chloride 0.9% 100 ml @ 10 mls/hr IV Q10H [facility] Rx#:[id number] Piperacillin Sodium/ 50 100 Tazobact 3.375 gm In Sodium Chloride 0.9% 50 ml @ 100 mls/hr IV Q8HR [facility] Rx#:[id number] Vancomycin HCl 1.25 gm In 250 250 Dextrose 5% 250 ml @ 165 mls/hr IV Q12HR@0900, 2100 [facility] Rx#:[id number] Tube Feeding 0 TPN/PPN 0 Blood Product 0 Lipid 0 Albumin 0 Other 0 Output: Gastric Drainage 0 Urine 0 Stool 0 Urine/Stool Mix 0 Emesis 0 Hemodialysis 0 Other 0 Other: # Voids 0 # Bowel Movements 0 Active Medications: Current Medications Acetaminophen (Tylenol) 650 mg PO Q4HR PRN PRN Reason: Pain (Mild) Stop: 04/20/17 12:01 Last Admin: 02/21/17 09:54 Dose: 650 mg Acetaminophen/Hydrocodone Bitart ([place] 5mg/325mg) 1 tab PO Q6H PRN PRN Reason: PAIN Stop: 04/20/17 13:24 Aspirin (Ecotrin) 81 mg PO DAILY [facility] Stop: 04/21/17 08:59 Last Admin: 02/21/17 09:51 Dose: 81 mg Docusate Sodium (Colace) 100 mg PO BID [facility] Stop: 04/20/17 16:59 Last Admin: 02/21/17 09:52 Dose: 100 mg Enalapril Maleate (Vasotec) 5 mg PO DAILY [facility] Stop: 04/21/17 08:59 Last Admin: 02/21/17 09:51 Dose: 5 mg Furosemide (Lasix) 40 mg PO DAILY [facility] Stop: 04/21/17 08:59 Last Admin: 02/21/17 09:51 Dose: 40 mg Norepinephrine Bitartrate 4 mg (/ Dextrose) 254 mls @ 19.05 mls/hr IV TITR PRN ; Protocol; 5 MCG/MIN PRN Reason: BP MAINTENANCE (PER PROTOCOL) Stop: 04/20/17 02:29 Last Titration: 02/20/17 03:30 Dose: 0 mcg/min, 0 mls/hr Pantoprazole Sodium 80 mg/ (Sodium Chloride) 100 mls @ 10 mls/hr IV Q10H [facility] Stop: 04/20/17 08:59 Last Infusion: 02/21/17 03:15 Dose: Infused Piperacillin Sod/Tazobactam (Sod 3.375 gm/ Sodium Chloride) 50 mls @ 100 mls/ hr IV Q8HR [facility] Stop: 04/20/17 20:59 Last Infusion: 02/21/17 06:00 Dose: Infused Vancomycin HCl 1.25 gm/ (Dextrose) 250 mls @ 165 mls/hr IV Q12HR@0900,2100 [facility] Stop: 04/21/17 10:59 Last Admin: 02/21/17 10:45 Dose: 165 mls/hr Insulin Aspart (Novolog Insulin Sliding Scale) 0 units SUBQ ACHS [facility] PRN Reason: Protocol Stop: 04/20/17 16:29 Last Admin: 02/21/17 07:24 Dose: Not Given Metoprolol Tartrate (Lopressor) 50 mg PO BID [facility] Stop: 04/20/17 16:59 Last Admin: 02/21/17 09:52 Dose: 50 mg Miscellaneous (Vancomycin Iv Per Pharmacy) 1 ea MC PRN [facility] Stop: 04/20/17 20:29 Miscellaneous (Probiotic Screen) 1 ea MC PRN PRN PRN Reason: PROTOCOL Stop: 04/21/17 16:25 Morphine Sulfate (Morphine) 1 mg IVP Q3H PRN PRN Reason: Pain (Moderate) Stop: 04/20/17 01:59 Last Admin: 02/21/17 02:07 Dose: 1 mg Nitroglycerin (Nitrostat) 0.4 mg SL Q5MIN PRN PRN Reason: Chest Pain Stop: 04/20/17 12:01 Nystatin (Nystop) 100,000 units TP BID PRN PRN Reason: SKIN EXCORIATIONS Stop: 04/21/17 15:35 Ondansetron HCl (Zofran) 4 mg IV Q6H PRN PRN Reason: Nausea Stop: 04/20/17 03:38 General: No acute distress, no Cooperative HEENT: Atraumatic Neck: Supple, JVD, Thyromegaly Assessment/Plan - Problem List Patient Problems: All Active Problems Acute kidney failure (Acute) Atherosclerotic heart disease of [place] coronary artery without angina pectoris (Acute) I25.10 Azotemia (Acute) R79.89 Bradycardia (Acute) R00.1 COPD (chronic obstructive pulmonary disease) (Acute) Cardiomegaly (Acute) I51.7 Chest pain (Acute) R07.9 Decubitus ulcer of buttock, 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
[2017-02-21] MEDS: NYSTATIN 100000 UNITS/GM POWD TP PRN (11:46)
[2017-02-21] MEDS: Pantoprazole 80 MG in Sodium Chloride 0.9% 100 ML IV SCH ×4 (11:59→22:10)
--- NOTE | 2017-02-21 17:52 | Infectious Disease Prog Note ---
Infectious Disease Subjective - Review of Systems Service Date: 02/21/17 Subjective: cc pn uti hpi- pt refused lab vanco changed to zyvox/levaquin ct ruled out obstruction ros no fver o/e vs chest claer abd soft less tender ext pulse dx uti pn plan zyvox.levaquin zosyn Infectious Disease Objective - Results Result Diagrams: 02/20/17 15:54 02/20/17 15:54 Recent Labs: Laboratory Last Values WBC 12.3 Th/cmm (4.8-10.8) H D 02/20/17 15:54 RBC 2.84 Mil/cmm (3.80-5.20) L 02/20/17 15:54 Hgb 8.1 gm/dL (12-16) L 02/20/17 15:54 Hct 25.0 % (41.0-60) L D 02/20/17 15:54 MCV 88.3 fl (81-100) 02/20/17 15:54 MCH 28.6 pg (27.0-31.0) 02/20/17 15:54 MCHC Differential 32.4 pg (28.0-36.0) 02/20/17 15:54 RDW 12.9 % (11.5-20.0) 02/20/17 15:54 Plt Count 170 Th/cmm (150-400) 02/20/17 15:54 MPV 7.9 fl 02/20/17 15:54 Neutrophils % 79.3 % (40.0-80.0) 02/20/17 15:54 Band Neutrophils % 25 % (0-10) H 02/19/17 04:11 Lymphocytes % 11.3 % (20.0-50.0) L 02/20/17 15:54 Monocytes % 5.6 % (2.0-10.0) 02/20/17 15:54 Eosinophils % 3.4 % (0.0-5.0) 02/20/17 15:54 Basophils % 0.4 % (0.0-2.0) 02/20/17 15:54 Neutrophils (Manual) 66 % (40-80) 02/19/17 04:11 Lymphocytes 7 % (20-50) L 02/19/17 04:11 Monocytes 2 % (2-10) 02/19/17 04:11 Metamyelocytes 1 % (0-0) H 02/18/17 23:35 Hypochromia 1+ 02/18/17 23:35 Platelet Estimate ADEQUATE (NORMAL) 02/19/17 04:11 PT 11.1 SECONDS (9.5-11.5) 02/19/17 04:11 INR 1.07 (0.5-1.4) 02/19/17 04:11 Specimen Source Arterial 02/19/17 10:13 Sample Site RB 02/19/17 10:13 pH 7.30 (7.35-7.45) L 02/19/17 10:13 pCO2 67.0 mmHg (35.0-45.0) H* 02/19/17 10:13 pO2 58.0 mmHg (80.0-100.0) L 02/19/17 10:13 HCO3 28.3 mEq/L (20.0-26.0) H 02/19/17 10:13 Base Excess 4.7 mEq/L (-3.0-3.0) H 02/19/17 10:13 O2 Saturation 87.0 % (92.0-100.0) L 02/19/17 10:13 Jorje Test NA 02/19/17 10:13 Vent Rate NA 02/19/17 10:13 Inspired O2 28 02/19/17 10:13 Tidal Volume NA 02/19/17 10:13 PEEP NA 02/19/17 10:13 Pressure (ins/psv/peep) NA 02/19/17 10:13 Critical Value SH 02/19/17 10:13 Sodium 137 mEq/L (136-145) 02/20/17 15:54 Potassium 4.5 mEq/L (3.5-5.1) 02/20/17 15:54 Chloride 104 mEq/L (98-107) 02/20/17 15:54 Carbon Dioxide 27.9 mEq/L (21.0-31.0) 02/20/17 15:54 Anion Gap 9.6 (7.0-16.0) 02/20/17 15:54 BUN 55 mg/dL (7-25) H 02/20/17 15:54 Creatinine 1.6 mg/dL (0.6-1.2) H 02/20/17 15:54 Est GFR ( Amer) 41.1 ml/min (>90) 02/20/17 15:54 Est GFR (Non-Af Amer) 34.0 ml/min 02/20/17 15:54 BUN/Creatinine Ratio 34.4 02/20/17 15:54 Glucose 137 mg/dL (70-105) H 02/20/17 15:54 POC Glucose 175 MG/DL (70 - 105) H 02/21/17 17:14 Whole Bld Lactic Acid 1.95 mmol/L (0.60-1.99) 02/19/17 09:30 Calcium 8.3 mg/dL (8.6-10.3) L 02/20/17 15:54 Total Bilirubin 0.3 mg/dL (0.3-1.0) 02/18/17 23:35 Direct Bilirubin 0.09 mg/dL (0.0-0.2) 02/18/17 23:35 AST 16 U/L (13-39) 02/18/17 23:35 ALT 6 U/L (7-52) L 02/18/17 23:35 Alkaline Phosphatase 85 U/L (34-104) 02/18/17 23:35 Total Protein 6.3 gm/dL (6.0-8.3) 02/18/17 23:35 Albumin 3.2 gm/dL (3.7-5.3) L 02/18/17 23:35 Globulin 3.1 gm/dL 02/18/17 23:35 Albumin/Globulin Ratio 1.0 (1.0-1.8) 02/18/17 23:35 Amylase 36 U/L (29-103) 02/18/17 23:35 Lipase 10 U/L (11-82) L 02/18/17 23:35 Urine Source [place] 02/20/17 16:15 Urine Color YELLOW 02/20/17 16:15 Urine Clarity CLOUDY (CLEAR) H 02/20/17 16:15 Urine pH 5.5 (4.6 - 8.0) 02/20/17 16:15 Ur Specific [place] 1.020 (1.005-1.030) 02/20/17 16:15 Urine Protein NEGATIVE mg/dL (NEGATIVE) 02/20/17 16:15 Urine Glucose (UA) NEGATIVE mg/dL (NEGATIVE) 02/20/17 16:15 Urine Ketones NEGATIVE mg/dL (NEGATIVE) 02/20/17 16:15 Urine Blood SMALL (NEGATIVE) H 02/20/17 16:15 Urine Nitrate NEGATIVE (NEGATIVE) 02/20/17 16:15 Urine Bilirubin NEGATIVE (NEGATIVE) 02/20/17 16:15 Urine Urobilinogen 0.2 E.U./dL (0.2 - 1.0) 02/20/17 16:15 Ur Leukocyte Esterase LARGE (NEGATIVE) H 02/20/17 16:15 Urine RBC 2-5 /hpf (0-5) 02/20/17 16:15 Urine WBC 25-50 /hpf (0-5) H 02/20/17 16:15 Ur Epithelial Cells FEW /lpf (FEW) 02/20/17 16:15 Urine Bacteria MODERATE /hpf (NONE SEEN) H 02/20/17 16:15 Urine Yeast MODERATE /hpf (NONE SEEN) H 02/20/17 16:15 Blood Type A POSITIVE 02/19/17 01:55 Antibody Screen NEGATIVE 02/19/17 01:55 - Physical Exam Vitals and I&O: Vital Signs Temp 97.8 F 02/21/17 12:00 Pulse 68 02/21/17 17:00 Resp 18 02/21/17 17:00 BP 113/57 02/21/17 17:00 Pulse Ox 99 02/21/17 17:00 Intake & Output 02/20/17 02/21/17 02/21/17 18:59 06:59 18:59 Intake Total 400 450 500 Output Total 0 Balance 400 450 500 Weight (lbs) 97.023 kg Intake: Intake, IV Amount 400 450 500 Pantoprazole 80 mg In 100 100 200 Sodium Chloride 0.9% 100 ml @ 10 mls/hr IV Q10H [facility] Rx#:[id number] Piperacillin Sodium/ 50 100 50 Tazobact 3.375 gm In Sodium Chloride 0.9% 50 ml @ 100 mls/hr IV Q8HR [facility] Rx#:[id number] Vancomycin HCl 1.25 gm In 250 250 250 Dextrose 5% 250 ml @ 165 mls/hr IV Q12HR@0900, 2100 [facility] Rx#:[id number] Tube Feeding 0 TPN/PPN 0 Blood Product 0 Lipid 0 Albumin 0 Other 0 Output: Gastric Drainage 0 Urine 0 Stool 0 Urine/Stool Mix 0 Emesis 0 Hemodialysis 0 Other 0 Other: # Voids 0 # Bowel Movements 0 Active Medications: Current Medications Acetaminophen (Tylenol) 650 mg PO Q4HR PRN PRN Reason: Pain (Mild) Stop: 04/20/17 12:01 Last Admin: 02/21/17 09:54 Dose: 650 mg Acetaminophen/Hydrocodone Bitart ([place] 5mg/325mg) 1 tab PO Q6H PRN PRN Reason: PAIN Stop: 04/20/17 13:24 Aspirin (Ecotrin) 81 mg PO DAILY [facility] Stop: 04/21/17 08:59 Last Admin: 02/21/17 09:51 Dose: 81 mg Docusate Sodium (Colace) 100 mg PO BID [facility] Stop: 04/20/17 16:59 Last Admin: 02/21/17 16:18 Dose: Not Given Furosemide (Lasix) 40 mg PO DAILY [facility] Stop: 04/21/17 08:59 Last Admin: 02/21/17 09:51 Dose: 40 mg Norepinephrine Bitartrate 4 mg (/ Dextrose) 254 mls @ 19.05 mls/hr IV TITR PRN ; Protocol; 5 MCG/MIN PRN Reason: BP MAINTENANCE (PER PROTOCOL) Stop: 04/20/17 02:29 Last Titration: 02/20/17 03:30 Dose: 0 mcg/min, 0 mls/hr Pantoprazole Sodium 80 mg/ (Sodium Chloride) 100 mls @ 10 mls/hr IV Q10H [facility] Stop: 04/20/17 08:59 Last Admin: 02/21/17 12:01 Dose: 10 mls/hr Piperacillin Sod/Tazobactam (Sod 3.375 gm/ Sodium Chloride) 50 mls @ 100 mls/ hr IV Q8HR [facility] Stop: 04/20/17 20:59 Last Infusion: 02/21/17 14:52 Dose: Infused Linezolid (Zyvox) 600 mg in 300 mls @ 300 mls/hr IV Q12HR [facility] Stop: 04/22/17 20:59 Levofloxacin (Levaquin Pb) 500 mg in 100 mls @ 100 mls/hr IV Q24HR [facility] Stop: 04/22/17 17:59 Insulin Aspart (Novolog Insulin Sliding Scale) 0 units SUBQ ACHS [facility] PRN Reason: Protocol Stop: 04/20/17 16:29 Last Admin: 02/21/17 17:16 Dose: Not Given Miscellaneous (Probiotic Screen) 1 ea MC PRN PRN PRN Reason: PROTOCOL Stop: 04/21/17 16:25 Morphine Sulfate (Morphine) 1 mg IVP Q3H PRN PRN Reason: Pain (Moderate) Stop: 04/20/17 01:59 Last Admin: 02/21/17 14:22 Dose: 1 mg Nitroglycerin (Nitrostat) 0.4 mg SL Q5MIN PRN PRN Reason: Chest Pain Stop: 04/20/17 12:01 Nystatin (Nystop) 100,000 units TP BID PRN PRN Reason: SKIN EXCORIATIONS Stop: 04/21/17 15:35 Last Admin: 02/21/17 11:46 Dose: 100,000 units Ondansetron HCl (Zofran) 4 mg IV Q6H PRN PRN Reason: Nausea Stop: 04/20/17 03:38 Infectious Disease Assmt/Plan - Problem List Patient Problems: All Active Problems Acute kidney failure (Acute) Atherosclerotic heart disease of [place] coronary artery without angina pectoris (Acute) I25.10 Azotemia (Acute) R79.89 Bradycardia (Acute) R00.1 COPD (chronic obstructive pulmonary disease) (Acute) Cardiomegaly (Acute) I51.7 Chest pain (Acute) R07.9 Decubitus ulcer of buttock, 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
[2017-02-21] MEDS ORDERED: Levofloxacin 500mg/100mL 500 MG/100 ML BAG IV ONE (18:00)
--- NOTE | 2017-02-21 20:05 | Consultation ---
DATE OF CONSULTATION: 02/20/2017 PRIMARY CARE PHYSICIAN: Dr. Yates. HISTORY OF PRESENT ILLNESS: This is a 71-year-old female, known to me from 2016, who was brought to the Emergency Room with abdominal pain. The patient's workup shows gastric outlet obstruction. The patient was seen by GI, Dr. Spicer, and the patient was found to have leukocytosis. Infectious consultation was called for further treatment. PAST MEDICAL HISTORY: Has atherosclerotic heart disease, COPD, type 2 diabetes. FAMILY HISTORY: Negative. PERSONAL HISTORY: Nonsmoker. REVIEW OF SYSTEMS: A 14-point review of system negative except above. PHYSICAL EXAMINATION: GENERAL: Well-nourished female. VITAL SIGNS: Temperature 98.1, pulse 72, respirations 19, blood pressure 107/53. HEENT: Mild pallor, no icterus or plaque. NECK: Supple. LUNGS: Has breath sounds bilateral vesicular. ABDOMEN: Abdominal tenderness. No ascites. EXTREMITIES: No pedal edema. NEUROLOGIC: No focal deficit. Reflexes are equal on both sides, plantar flexor. LABORATORY DATA: UA shows 25-50 wbc. White count is 23,000, hemoglobin is grams, platelets 203. Chest x-ray and abdominal and pelvis CT was reviewed, shows colonic ileus, prior cholecystectomy, diverticulosis, umbilical hernia, IVC filter, L1 compression fracture. CAT scan, bilateral infiltrates, conservative changes present. DIAGNOSES: Abdominal pain, diverticulitis, IVC filter uterus, umbilical hernia, UTI, and ileus, diabetes mellitus type 2. PLAN: The patient started on vancomycin, pantoprazole, Zosyn, supportive care. Rest of the care as ordered in CPOE. Also, the patient started on IV fluids, pain medication. We will add Levaquin for better coverage. Thank you Dr. Yates for this consultation. JOB# [id number]
[2017-02-21] MEDS: Linezolid 600mg/300mL 600 MG/300 ML BAG IV SCH (21:27)
--- NOTE | 2017-02-21 21:28 | Consultation ---
DATE OF CONSULTATION: 02/21/2017 HISTORY AND PHYSICAL: This is a 71-year-old female patient who had upper GI bleed and hence the patient was transferred from [facility] to the Emergency Room. The patient is admitted. During hospital stay in ICU, the patient developed hypotension and hence Cardiology consult requested. PAST MEDICAL HISTORY: Iron deficiency anemia, diabetes mellitus type 2, GERD, osteoporosis, COPD, stable angina, rheumatoid arthritis, bilateral pleural effusion, compression fracture L1, sick sinus syndrome with pacemaker, umbilical hernia, diverticulosis. FAMILY HISTORY: Unremarkable. SOCIAL HISTORY: No history of smoking, alcohol abuse. ALLERGIES: No known allergies. PHYSICAL EXAMINATION: VITAL SIGNS: Blood pressure 130/80, pulse 70, respirations 20. The patient had hypotension with a blood pressure of 90 systolic. HEENT: Head: Normocephalic. No lumps or bumps. Eyes: Pupils equal, reactive to light. Fundi show AV nicking. Sclerae white. Conjunctivae pink. NECK: Carotid 2+. Normal upstroke. JVD flat. Thyroid not palpable. Lymph nodes not palpable. CHEST: Shows increased AP diameter. No kyphosis, scoliosis. LUNGS: Bilateral bronchovesicular breath sounds. Occasional wheeze. No rales. HEART: PMI fifth intercostal space with lateral to midclavicular line. S1, S2. No S3. Soft S4. ABDOMEN: Soft. Liver, spleen not palpable. No organomegaly. Bowel sounds active. NEUROLOGIC: Unremarkable. EXTREMITIES: Peripheral pulses 2+. No pedal edema. CLINICAL IMPRESSION: 1. Hypotension. 2. Upper GI bleed. 3. Abdominal ileus, iron deficiency anemia, diabetes mellitus type 2, GERD, osteoporosis, COPD, stable angina, rheumatoid arthritis, bilateral pleural effusions, compression fracture L1, sick sinus syndrome with pacemaker, umbilical hernia, diverticulitis, abdominal ileus. PLAN: At the present time, we will continue present care. The patient on Levophed. We will stop Lopressor and enalapril. The patient to continue present care. Monitor the patient closely in Intensive Care Unit. Also get an echocardiogram for left ventricular function. JOB# [id number]
[2017-02-22] MEDS: Morphine Sulfate 2 mg/mL 1mL Syr IVP PRN ×4 (03:32→20:59)
[2017-02-22] MEDS: INSULIN ASPART SLIDING SCALE 100 UNITS/ML UNIT SUBQ SCH ×4 (07:51→21:15)
[2017-02-22] MEDS: Pantoprazole 80 MG in Sodium Chloride 0.9% 100 ML IV SCH ×2 (08:30→17:19)
[2017-02-22] MEDS: Linezolid 600mg/300mL 600 MG/300 ML BAG IV SCH ×2 (09:33→23:25)
[2017-02-22] MEDS: Multivitamin w/ Minerals Tab PO SCH (09:35)
[2017-02-22 10:56] LABS: HEMATOCRIT 26.4 % (41.0-60); HEMOGLOBIN 8.5 gm/dL (12-16); MEAN CELL VOLUME 87.9 fl (81-100); MEAN CORPUSCULAR HEMOGLOBIN 28.4 pg (27.0-31.0); MEAN CORPUSCULAR HGB CONC 32.2 pg (28.0-36.0); MEAN PLATELET VOLUME 8.1 fl; PLATELET COUNT 203 Th/cmm (150-400); RED CELL DISTRIBUTION WIDTH 12.7 % (11.5-20.0)
[2017-02-22 11:06] LABS: ANION GAP 11.5 (7.0-16.0); CARBON DIOXIDE 25.6 mEq/L (21.0-31.0); CREATININE - SERUM 2.3 mg/dL (0.6-1.2); GFR NON AFRICAN-AMERICAN 22.3 ml/min; POTASSIUM SERUM 4.1 mEq/L (3.5-5.1)
[2017-02-22 11:12] LABS: WHITE BLOOD COUNT 13.6 Th/cmm (4.8-10.8)
[2017-02-22 11:32] LABS: BAND NEUTROPHILE 3 % (0-10); EOSINOPHIL 5 % (0-5); LYMPHOCYTE 12 % (20-50); MONOCYTE 5 % (2-10); NEUTROPHILS 75 % (40-80); TOTAL CELLS COUNTED 100
[2017-02-22 12:25] LABS: A1C % 5.8 % (4.0-6.0)
[2017-02-22] MEDS ORDERED: Sodium Chloride 0.9% 1,000 ML IV SCH ×2 (12:46→16:32)
--- NOTE | 2017-02-22 15:34 | Cardiology ---
02/22/[address] Yates. M-MODE ECHOCARDIOGRAM: Mitral valve, anterior leaflet of mitral valve shows normal excursion, EF velocity. Posterior leaflet of the mitral valve shows normal excursion. Left ventricular posterior shows increased thickness, normal excursion. Interventricular septum shows increased thickness, normal excursion, hypertrophy of the left ventricle, ejection fraction 79%. Left atrium enlarged. Aortic root shows normal dimension, normal excursion of aortic leaflets. CONCLUSION: Left atrial enlargement. Hypertrophy of the left ventricle, ejection fraction 79%. 2D echo on the same patient, long axis view showed normal sized left ventricle with hypertrophy of the left ventricle. Left atrium enlarged. Aortic root shows normal dimension, normal excursion of aortic leaflets. Short axis view of mitral valve normal. Short axis view of aortic valve normal. Apical four chamber view showed normal sized left ventricle with hypertrophy of the left ventricle. Left atrium enlarged. Right ventricular cavity, right atrium normal, no pericardial effusion. CONCLUSION: Left atrial enlargement, right atrial enlargement, ejection fraction 79%, hypertrophy of the left ventricle. Doppler study shows trace mitral regurgitation, mild aortic regurgitation, moderate tricuspid regurgitation, mild pulmonary regurgitation. JOB# [id number]
[2017-02-22] MEDS: Levofloxacin 250 mg/50 mL Premix Bag IV SCH (21:01)
--- NOTE | 2017-02-22 22:14 | Consultation ---
DATE OF CONSULTATION: AGE OF PATIENT: 71 years. SEX: Female. RACE: . PLACE OF EXAMINATION: CCU bed #10. TIME: About 4:30 p.m. HISTORY OF PRESENT ILLNESS: The patient had been n.p.o. since yesterday. The patient came here because of the fact the patient was not feeling well and was having some discomfort. Abdomen was distended. On direct questioning, the patient denies any pain now. The patient has a past history of cholecystectomy. The patient also has a past history of three cesareans. This patient fell down and has a history of fracture of the lower vertebra. The patient seems to be comfortable at present time and the patient is running IVs normal saline at 100 mL an hour because the patient's sodium today was on the low side. PHYSICAL EXAMINATION: VITAL SIGNS: The patient's vital seems to be stable at the present time. Breathing at a rate of about 18 per minute, heart rate is about 80-90 per minute. GENERAL: On clinical examination, the patient is rather obese, able to communicate reasonably well. Oral hygiene is somewhat poor. NECK: Jugular venous pressure clinically is not raised. CHEST: Reveals good air entry in the upper lung león. Breath sounds are diminished in the bases. It may be secondary to large abdomen. No masses are felt at the present time. EXTREMITIES: The patient seemed to be having some edema about 1+. The patient is able to mobilize all the 4 extremities. Peripheral pulses are reasonably well felt. LABORATORY DATA: Biochemical data reveals a hemoglobin of 8.5 gram percent, WBC count 13.6, platelet count 203, bands 3%, sodium 131, potassium 4.1, chloride 98, CO2 content 25, glucose 225, BUN 54, and creatinine 2.3. On direct questioning, the patient denies any kidney disease before. Calcium is 8.0, reason for this is not clear. She does not remember when was the last time previously she had any blood tests. There is an ultrasound done, which reveals bilateral small effusions. The patient also has a pacemaker with some pericardial effusion. There is also noticed is IVC filter with mild anasarca. Reason for the ____ urine shows 100,000 CFU yeast per mL. Considering this, impression reached is; 1. Anemia, etiology not clear. 2. Inferior vena cava filter, reasons not known. 3. Urine shows yeast may be secondary to King catheter being there. 4. Need to evaluate further and get the history for the reason for inferior vena caval filter. SUGGESTIONS: 1. Change the King catheter and repeat the urinalysis. 2. CBC and CMP tomorrow. 3. Reduce the IV normal saline 50 mL and start an oral liquids and fluid as necessary. 4. Would try to get more history from the past, if possible. [facility]# [id number]
[2017-02-23] MEDS: Morphine Sulfate 2 mg/mL 1mL Syr IVP PRN ×4 (05:30→22:22)
[2017-02-23] MEDS: Pantoprazole 80 MG in Sodium Chloride 0.9% 100 ML IV SCH ×2 (05:54→16:22)
[2017-02-23] MEDS: INSULIN ASPART SLIDING SCALE 100 UNITS/ML UNIT SUBQ SCH ×5 (06:22→20:50)
[2017-02-23] MEDS: Sodium Chloride 0.9% 1,000 ML IV SCH (08:20)
--- NOTE | 2017-02-23 08:47 | Diagnostic Imaging Report ---
Exam: Ultrasound summation kidneys. HISTORY: Renal failure. Findings: Real-time ultrasound examination of the kidneys performed multiple planes. The right kidney was not visualized due to patient inability to cooperate. Left kidney measures 9.9 x 4.6 x 5.6 m diameter. There is no evidence of acute or nephrolithiasis. The urinary bladder is contracted. Correlation with the previous CT examination of the abdomen pelvis on 02/20/2017 the left kidney is intact. IMPRESSION: 1. Nonvisualization of right kidney due to patient poor cooperation Normal examination of left kidney no evidence of obstructive uropathy or nephrolithiasis.
[2017-02-23] MEDS: Linezolid 600mg/300mL 600 MG/300 ML BAG IV SCH ×2 (08:51→21:55)
[2017-02-23] MEDS: Multivitamin w/ Minerals Tab PO SCH (08:52)
--- NOTE | 2017-02-23 15:08 | General Progress Note ---
Subjective - Review of Systems Events since last encounter: patient in no acute distress Objective - Results Result Diagrams: 02/22/17 10:38 02/22/17 10:38 Recent Labs: Laboratory Last Values WBC 13.6 Th/cmm (4.8-10.8) H 02/22/17 10:38 RBC 3.00 Mil/cmm (3.80-5.20) L 02/22/17 10:38 Hgb 8.5 gm/dL (12-16) L 02/22/17 10:38 Hct 26.4 % (41.0-60) L 02/22/17 10:38 MCV 87.9 fl (81-100) 02/22/17 10:38 MCH 28.4 pg (27.0-31.0) 02/22/17 10:38 MCHC Differential 32.2 pg (28.0-36.0) 02/22/17 10:38 RDW 12.7 % (11.5-20.0) 02/22/17 10:38 Plt Count 203 Th/cmm (150-400) 02/22/17 10:38 MPV 8.1 fl 02/22/17 10:38 Neutrophils % 79.3 % (40.0-80.0) 02/20/17 15:54 Band Neutrophils % 3 % (0-10) 02/22/17 10:38 Lymphocytes % 11.3 % (20.0-50.0) L 02/20/17 15:54 Monocytes % 5.6 % (2.0-10.0) 02/20/17 15:54 Eosinophils % 3.4 % (0.0-5.0) 02/20/17 15:54 Basophils % 0.4 % (0.0-2.0) 02/20/17 15:54 Neutrophils (Manual) 75 % (40-80) 02/22/17 10:38 Lymphocytes 12 % (20-50) L 02/22/17 10:38 Monocytes 5 % (2-10) 02/22/17 10:38 Eosinophils 5 % (0-5) 02/22/17 10:38 Metamyelocytes 1 % (0-0) H 02/18/17 23:35 Hypochromia 1+ 02/18/17 23:35 Platelet Estimate ADEQUATE (NORMAL) 02/19/17 04:11 PT 11.1 SECONDS (9.5-11.5) 02/19/17 04:11 INR 1.07 (0.5-1.4) 02/19/17 04:11 Specimen Source Arterial 02/19/17 10:13 Sample Site RB 02/19/17 10:13 pH 7.30 (7.35-7.45) L 02/19/17 10:13 pCO2 67.0 mmHg (35.0-45.0) H* 02/19/17 10:13 pO2 58.0 mmHg (80.0-100.0) L 02/19/17 10:13 HCO3 28.3 mEq/L (20.0-26.0) H 02/19/17 10:13 Base Excess 4.7 mEq/L (-3.0-3.0) H 02/19/17 10:13 O2 Saturation 87.0 % (92.0-100.0) L 02/19/17 10:13 Jorje Test NA 02/19/17 10:13 Vent Rate NA 02/19/17 10:13 Inspired O2 28 02/19/17 10:13 Tidal Volume NA 02/19/17 10:13 PEEP NA 02/19/17 10:13 Pressure (ins/psv/peep) NA 02/19/17 10:13 Critical Value SH 02/19/17 10:13 Sodium 131 mEq/L (136-145) L 02/22/17 10:38 Potassium 4.1 mEq/L (3.5-5.1) 02/22/17 10:38 Chloride 98 mEq/L (98-107) 02/22/17 10:38 Carbon Dioxide 25.6 mEq/L (21.0-31.0) 02/22/17 10:38 Anion Gap 11.5 (7.0-16.0) 02/22/17 10:38 BUN 54 mg/dL (7-25) H 02/22/17 10:38 Creatinine 2.3 mg/dL (0.6-1.2) H 02/22/17 10:38 Est GFR ( Amer) 27.0 ml/min (>90) 02/22/17 10:38 Est GFR (Non-Af Amer) 22.3 ml/min 02/22/17 10:38 BUN/Creatinine Ratio 23.5 02/22/17 10:38 Glucose 225 mg/dL (70-105) H 02/22/17 10:38 POC Glucose 203 MG/DL (70 - 105) H 02/23/17 11:35 Hemoglobin A1c % 5.8 % (4.0-6.0) 02/22/17 10:38 Whole Bld Lactic Acid 1.95 mmol/L (0.60-1.99) 02/19/17 09:30 Calcium 8.0 mg/dL (8.6-10.3) L 02/22/17 10:38 Total Bilirubin 0.3 mg/dL (0.3-1.0) 02/18/17 23:35 Direct Bilirubin 0.09 mg/dL (0.0-0.2) 02/18/17 23:35 AST 16 U/L (13-39) 02/18/17 23:35 ALT 6 U/L (7-52) L 02/18/17 23:35 Alkaline Phosphatase 85 U/L (34-104) 02/18/17 23:35 B-Natriuretic Peptide 220.0 pg/mL (5.0-100.0) H 02/22/17 10:38 Total Protein 6.3 gm/dL (6.0-8.3) 02/18/17 23:35 Albumin 3.2 gm/dL (3.7-5.3) L 02/18/17 23:35 Globulin 3.1 gm/dL 02/18/17 23:35 Albumin/Globulin Ratio 1.0 (1.0-1.8) 02/18/17 23:35 Amylase 36 U/L (29-103) 02/18/17 23:35 Lipase 10 U/L (11-82) L 02/18/17 23:35 Urine Source [place] 02/20/17 16:15 Urine Color YELLOW 02/20/17 16:15 Urine Clarity CLOUDY (CLEAR) H 02/20/17 16:15 Urine pH 5.5 (4.6 - 8.0) 02/20/17 16:15 Ur Specific [place] 1.020 (1.005-1.030) 02/20/17 16:15 Urine Protein NEGATIVE mg/dL (NEGATIVE) 02/20/17 16:15 Urine Glucose (UA) NEGATIVE mg/dL (NEGATIVE) 02/20/17 16:15 Urine Ketones NEGATIVE mg/dL (NEGATIVE) 02/20/17 16:15 Urine Blood SMALL (NEGATIVE) H 02/20/17 16:15 Urine Nitrate NEGATIVE (NEGATIVE) 02/20/17 16:15 Urine Bilirubin NEGATIVE (NEGATIVE) 02/20/17 16:15 Urine Urobilinogen 0.2 E.U./dL (0.2 - 1.0) 02/20/17 16:15 Ur Leukocyte Esterase LARGE (NEGATIVE) H 02/20/17 16:15 Urine RBC 2-5 /hpf (0-5) 02/20/17 16:15 Urine WBC 25-50 /hpf (0-5) H 02/20/17 16:15 Ur Epithelial Cells FEW /lpf (FEW) 02/20/17 16:15 Urine Bacteria MODERATE /hpf (NONE SEEN) H 02/20/17 16:15 Urine Yeast MODERATE /hpf (NONE SEEN) H 02/20/17 16:15 Blood Type A POSITIVE 02/19/17 01:55 Antibody Screen NEGATIVE 02/19/17 01:55 - Physical Exam Vitals and I&O: Vital Signs Temp 96.5 F 02/23/17 13:00 Pulse 69 02/23/17 13:30 Resp 15 02/23/17 13:00 BP 103/46 02/23/17 13:30 Pulse Ox 99 02/23/17 13:00 Intake & Output 02/22/17 02/23/17 02/23/17 18:59 06:59 18:59 Intake Total 1133.671 779.921 447.828 Output Total 550 250 Balance 583.671 529.921 447.828 Weight (lbs) 96.87 kg 105.233 kg Intake: Intake, IV Amount 683.671 629.921 447.828 Linezolid 600mg/300mL 600 300 300 300 mg In 300 ml @ 300 mls/ hr IV Q12HR PATRIA Rx#: [id number] Norepinephrine 4 mg In 95.504 129.921 147.828 Dextrose 5% 250 ml @ 5 MCG/MIN 19.05 mls/hr IV TITR PRN Rx#:[id number] Pantoprazole 80 mg In 188.167 100 Sodium Chloride 0.9% 100 ml @ 10 mls/hr IV Q10H PATRIA Rx#:[id number] Piperacillin Sodium/ 100 100 Tazobact 3.375 gm In Sodium Chloride 0.9% 50 ml @ 100 mls/hr IV Q8HR [facility] Rx#:[id number] Oral 450 150 Output: Urine 550 250 Stool 0 Other: # Bowel Movements 0 Active Medications: Current Medications Acetaminophen (Tylenol) 650 mg PO Q4HR PRN PRN Reason: Pain (Mild) Stop: 04/20/17 12:01 Last Admin: 02/21/17 09:54 Dose: 650 mg Acetaminophen/Hydrocodone Bitart ([place] 5mg/325mg) 1 tab PO Q6H PRN PRN Reason: PAIN Stop: 04/20/17 13:24 Aspirin (Ecotrin) 81 mg PO DAILY [facility] Stop: 04/21/17 08:59 Last Admin: 02/23/17 08:52 Dose: 81 mg Docusate Sodium (Colace) 100 mg PO BID [facility] Stop: 04/20/17 16:59 Last Admin: 02/23/17 08:52 Dose: 100 mg Fluconazole (Diflucan) 100 mg PO DAILY [facility] Stop: 03/08/17 08:59 Last Admin: 02/23/17 08:54 Dose: 100 mg Furosemide (Lasix) 40 mg PO DAILY [facility] Stop: 04/21/17 08:59 Last Admin: 02/23/17 08:53 Dose: Not Given Norepinephrine Bitartrate 4 mg (/ Dextrose) 254 mls @ 19.05 mls/hr IV TITR PRN ; Protocol; 5 MCG/MIN PRN Reason: BP MAINTENANCE (PER PROTOCOL) Stop: 04/20/17 02:29 Last Admin: 02/23/17 12:18 Dose: 3 mcg/min, 11.43 mls/hr Pantoprazole Sodium 80 mg/ (Sodium Chloride) 100 mls @ 10 mls/hr IV Q10H [facility] Stop: 04/20/17 08:59 Last Admin: 02/23/17 05:54 Dose: 10 mls/hr Piperacillin Sod/Tazobactam (Sod 3.375 gm/ Sodium Chloride) 50 mls @ 100 mls/ hr IV Q8HR [facility] Stop: 04/20/17 20:59 Last Admin: 02/23/17 12:11 Dose: 100 mls/hr Linezolid (Zyvox) 600 mg in 300 mls @ 300 mls/hr IV Q12HR PATRIA Stop: 04/22/17 20:59 Last Infusion: 02/23/17 09:55 Dose: Infused Levofloxacin (Levaquin Pb) 250 mg in 50 mls @ 50 mls/hr IV Q24HR PATRIA Stop: 04/23/17 20:59 Last Admin: 02/22/17 21:01 Dose: 50 mls/hr Sodium Chloride (Nacl 0.9%) 1,000 mls @ 50 mls/hr IV .Q20H PATRIA Stop: 04/24/17 08:04 Last Admin: 02/23/17 08:20 Dose: 50 mls/hr Insulin Aspart (Novolog Insulin Sliding Scale) 0 units SUBQ ACHS PATRIA PRN Reason: Protocol Stop: 04/20/17 16:29 Last Admin: 02/23/17 11:37 Dose: 4 units Miscellaneous (Probiotic Screen) 1 ea MC PRN PRN PRN Reason: PROTOCOL Stop: 04/21/17 16:25 Morphine Sulfate (Morphine) 1 mg IVP Q3H PRN PRN Reason: Pain (Moderate) Stop: 04/20/17 01:59 Last Admin: 02/23/17 11:20 Dose: 1 mg Nitroglycerin (Nitrostat) 0.4 mg SL Q5MIN PRN PRN Reason: Chest Pain Stop: 04/20/17 12:01 Nystatin (Nystop) 100,000 units TP BID PRN PRN Reason: SKIN EXCORIATIONS Stop: 04/21/17 15:35 Last Admin: 02/21/17 11:46 Dose: 100,000 units Ondansetron HCl (Zofran) 4 mg IV Q6H PRN PRN Reason: Nausea Stop: 04/20/17 03:38 General: No acute distress, no Cooperative HEENT: Atraumatic Neck: Supple, JVD, Thyromegaly Assessment/Plan - Problem List Patient Problems: All Active Problems Acute kidney failure (Acute) 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 Azotemia (Acute) R79.89 Bradycardia (Acute) R00.1 COPD (chronic obstructive pulmonary disease) (Acute) Cardiomegaly (Acute) I51.7 Chest pain (Acute) R07.9 Decubitus ulcer of buttock, 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 Nutritional Asmnt/Malnutr-PDOC - Dietary Evaluation Malnutrition Findings (Please click <Entered> for more info): Nutritional Asmnt/Malnutrition Start: 02/21/17 18: 20 Text: Status: Complete Freq: Document 02/21/17 18:21 [facility] (Rec: 02/21/17 18:32 [email or web address] [email or web address]) Nutritional Asmnt/Malnutrition Patient General Information Nutritional Screening High Risk Consult Diagnosis gastric outlet obstruction Pertinent Medical Hx/Surgical Hx HTN, OA, DM, GERD Subjective Information Pt seen sleeping at the time of visit, attempted x 2. Spoke with RN, pt consumed 50% of breakfast and only the soup of lunch today, not much appetite, no complain of N/V. Pt will be NPO from midnight for GI exam tommorrow. Current Diet Order/ Nutrition Support no added salt 4gm, CCHO, no eggs, banana and cereal in morning Pertinent Medications colace, lasix, novolog, levaquin, piperacillin Pertinent Labs 02/20 Na 137, K 4.5, Cl 104, BUN 55, Cr 1.6, Glucose 137, POC 126-199 since admit, Ca 8. 3 Nutritional Hx/Data Height 1.57 m Height (Calculated Centimeters) 157.5 Current Weight (lbs) 97.023 kg Weight (Calculated Kilograms) 97.0 Weight (Calculated Grams) 22853.4 [place] Body Weight 110 % [place] Body Weight 194 Body Mass Index (BMI) 39.1 Weight Status Obese GI Symptoms GI Symptoms None Last BM none Difficult in: None Skin Integrity/Comment: multiple maceration, abrasion to right/left medial thigh Current %PO Poor (25-49%) Estimated Nutritional Goals BEE in Kcals: Adj wt of IBW Calories/Kcals/Kg 27-32 Kcals Calculated Protein: Adj wt of IBW Protein g/k-1.2 Protein Calculated 62-74 Fluid: ml Nutritional Problem 1. Problem Problem inadequate PO intake Etiology poor appetite Signs/Symptoms: PO intake 25-50% Malnutrition Alert Protein-Calorie Malnutrition N/A Is there a minimum of two criteria No selected? Query Text:Check all the applicable criteria. A minimum of two criteria are recommended for diagnosis of either severe or non-severe malnutrition. Intervention/Recommendation Comments 1. Continue with current diet as ordered. 2. Monitor PO intake, GI symptons, wt, labs and skin integrity 3. F/U as high risk in 2-3 days, 02/23-02/24 Expected Outcomes/Goals Expected Outcomes/Goals 1. PO intake to meet at least 75% of nutritional needs. 2. Wt stability, skin to remain intact, labs to improve
[2017-02-23] MEDS: Levofloxacin 250 mg/50 mL Premix Bag IV SCH (21:23)
[2017-02-24] MEDS: Pantoprazole 80 MG in Sodium Chloride 0.9% 100 ML IV SCH ×3 (02:30→19:15)
[2017-02-24] MEDS: Sodium Chloride 0.9% 1,000 ML IV SCH (05:00)
[2017-02-24] MEDS: INSULIN ASPART SLIDING SCALE 100 UNITS/ML UNIT SUBQ SCH ×4 (07:00→21:15)
[2017-02-24] MEDS: Multivitamin w/ Minerals Tab PO SCH (08:17)
[2017-02-24] MEDS: Linezolid 600mg/300mL 600 MG/300 ML BAG IV SCH ×2 (08:17→20:17)
[2017-02-24 08:56] LABS: ALBUMIN 2.9 gm/dL (3.7-5.3); ANION GAP 14.4 (7.0-16.0); BILIRUBIN,TOTAL 0.3 mg/dL (0.3-1.0); CALCIUM SERUM 7.7 mg/dL (8.6-10.3); CARBON DIOXIDE 19.1 mEq/L (21.0-31.0); CREATININE - SERUM 2.6 mg/dL (0.6-1.2); GFR AFRICAN-AMERICAN 23.5 ml/min (>90); GFR NON AFRICAN-AMERICAN 19.4 ml/min; POTASSIUM SERUM 3.5 mEq/L (3.5-5.1); TOTAL PROTEIN,SERUM 5.7 gm/dL (6.0-8.3)
--- NOTE | 2017-02-24 09:02 | General Progress Note ---
Subjective - Review of Systems Events since last encounter: patient resting comfortable Objective - Results Result Diagrams: 02/22/17 10:38 02/22/17 10:38 Recent Labs: Laboratory Last Values WBC 13.6 Th/cmm (4.8-10.8) H 02/22/17 10:38 RBC 3.00 Mil/cmm (3.80-5.20) L 02/22/17 10:38 Hgb 8.5 gm/dL (12-16) L 02/22/17 10:38 Hct 26.4 % (41.0-60) L 02/22/17 10:38 MCV 87.9 fl (81-100) 02/22/17 10:38 MCH 28.4 pg (27.0-31.0) 02/22/17 10:38 MCHC Differential 32.2 pg (28.0-36.0) 02/22/17 10:38 RDW 12.7 % (11.5-20.0) 02/22/17 10:38 Plt Count 203 Th/cmm (150-400) 02/22/17 10:38 MPV 8.1 fl 02/22/17 10:38 Neutrophils % 79.3 % (40.0-80.0) 02/20/17 15:54 Band Neutrophils % 3 % (0-10) 02/22/17 10:38 Lymphocytes % 11.3 % (20.0-50.0) L 02/20/17 15:54 Monocytes % 5.6 % (2.0-10.0) 02/20/17 15:54 Eosinophils % 3.4 % (0.0-5.0) 02/20/17 15:54 Basophils % 0.4 % (0.0-2.0) 02/20/17 15:54 Neutrophils (Manual) 75 % (40-80) 02/22/17 10:38 Lymphocytes 12 % (20-50) L 02/22/17 10:38 Monocytes 5 % (2-10) 02/22/17 10:38 Eosinophils 5 % (0-5) 02/22/17 10:38 Metamyelocytes 1 % (0-0) H 02/18/17 23:35 Hypochromia 1+ 02/18/17 23:35 Platelet Estimate ADEQUATE (NORMAL) 02/19/17 04:11 PT 11.1 SECONDS (9.5-11.5) 02/19/17 04:11 INR 1.07 (0.5-1.4) 02/19/17 04:11 Specimen Source Arterial 02/19/17 10:13 Sample Site RB 02/19/17 10:13 pH 7.30 (7.35-7.45) L 02/19/17 10:13 pCO2 67.0 mmHg (35.0-45.0) H* 02/19/17 10:13 pO2 58.0 mmHg (80.0-100.0) L 02/19/17 10:13 HCO3 28.3 mEq/L (20.0-26.0) H 02/19/17 10:13 Base Excess 4.7 mEq/L (-3.0-3.0) H 02/19/17 10:13 O2 Saturation 87.0 % (92.0-100.0) L 02/19/17 10:13 Jorje Test NA 02/19/17 10:13 Vent Rate NA 02/19/17 10:13 Inspired O2 28 02/19/17 10:13 Tidal Volume NA 02/19/17 10:13 PEEP NA 02/19/17 10:13 Pressure (ins/psv/peep) NA 02/19/17 10:13 Critical Value SH 02/19/17 10:13 Sodium 131 mEq/L (136-145) L 02/22/17 10:38 Potassium 4.1 mEq/L (3.5-5.1) 02/22/17 10:38 Chloride 98 mEq/L (98-107) 02/22/17 10:38 Carbon Dioxide 25.6 mEq/L (21.0-31.0) 02/22/17 10:38 Anion Gap 11.5 (7.0-16.0) 02/22/17 10:38 BUN 54 mg/dL (7-25) H 02/22/17 10:38 Creatinine 2.3 mg/dL (0.6-1.2) H 02/22/17 10:38 Est GFR ( Amer) 27.0 ml/min (>90) 02/22/17 10:38 Est GFR (Non-Af Amer) 22.3 ml/min 02/22/17 10:38 BUN/Creatinine Ratio 23.5 02/22/17 10:38 Glucose 225 mg/dL (70-105) H 02/22/17 10:38 POC Glucose 147 MG/DL (70 - 105) H 02/24/17 06:39 Hemoglobin A1c % 5.8 % (4.0-6.0) 02/22/17 10:38 Whole Bld Lactic Acid 1.95 mmol/L (0.60-1.99) 02/19/17 09:30 Calcium 8.0 mg/dL (8.6-10.3) L 02/22/17 10:38 Total Bilirubin 0.3 mg/dL (0.3-1.0) 02/18/17 23:35 Direct Bilirubin 0.09 mg/dL (0.0-0.2) 02/18/17 23:35 AST 16 U/L (13-39) 02/18/17 23:35 ALT 6 U/L (7-52) L 02/18/17 23:35 Alkaline Phosphatase 85 U/L (34-104) 02/18/17 23:35 B-Natriuretic Peptide 220.0 pg/mL (5.0-100.0) H 02/22/17 10:38 Total Protein 6.3 gm/dL (6.0-8.3) 02/18/17 23:35 Albumin 3.2 gm/dL (3.7-5.3) L 02/18/17 23:35 Globulin 3.1 gm/dL 02/18/17 23:35 Albumin/Globulin Ratio 1.0 (1.0-1.8) 02/18/17 23:35 Amylase 36 U/L (29-103) 02/18/17 23:35 Lipase 10 U/L (11-82) L 02/18/17 23:35 Urine Source [place] 02/20/17 16:15 Urine Color YELLOW 02/20/17 16:15 Urine Clarity CLOUDY (CLEAR) H 02/20/17 16:15 Urine pH 5.5 (4.6 - 8.0) 02/20/17 16:15 Ur Specific [place] 1.020 (1.005-1.030) 02/20/17 16:15 Urine Protein NEGATIVE mg/dL (NEGATIVE) 02/20/17 16:15 Urine Glucose (UA) NEGATIVE mg/dL (NEGATIVE) 02/20/17 16:15 Urine Ketones NEGATIVE mg/dL (NEGATIVE) 02/20/17 16:15 Urine Blood SMALL (NEGATIVE) H 02/20/17 16:15 Urine Nitrate NEGATIVE (NEGATIVE) 02/20/17 16:15 Urine Bilirubin NEGATIVE (NEGATIVE) 02/20/17 16:15 Urine Urobilinogen 0.2 E.U./dL (0.2 - 1.0) 02/20/17 16:15 Ur Leukocyte Esterase LARGE (NEGATIVE) H 02/20/17 16:15 Urine RBC 2-5 /hpf (0-5) 02/20/17 16:15 Urine WBC 25-50 /hpf (0-5) H 02/20/17 16:15 Ur Epithelial Cells FEW /lpf (FEW) 02/20/17 16:15 Urine Bacteria MODERATE /hpf (NONE SEEN) H 02/20/17 16:15 Urine Yeast MODERATE /hpf (NONE SEEN) H 02/20/17 16:15 Blood Type A POSITIVE 02/19/17 01:55 Antibody Screen NEGATIVE 02/19/17 01:55 - Physical Exam Vitals and I&O: Vital Signs Temp 97.1 F 02/24/17 04:00 Pulse 78 02/24/17 07:55 Resp 18 02/24/17 07:55 BP 102/47 02/24/17 08:23 Pulse Ox 100 02/24/17 07:55 Intake & Output 02/23/17 02/24/17 02/24/17 18:59 06:59 18:59 Intake Total 2189.819 3601.345 63.246 Output Total 310 250 Balance 3533.824 4559.345 63.246 Weight (lbs) 105.715 kg 105.687 kg Intake: Intake, IV Amount 723.302 6375.345 63.246 Levofloxacin 250mg/50mL 50 250 mg In 50 ml @ 50 mls/ hr IV Q24HR [facility] Rx#: [id number] Linezolid 600mg/300mL 600 300 300 mg In 300 ml @ 300 mls/ hr IV Q12HR [facility] Rx#: [id number] Norepinephrine 4 mg In 147.828 347.345 63.246 Dextrose 5% 250 ml @ 5 MCG/MIN 19.05 mls/hr IV TITR PRN Rx#:[id number] Pantoprazole 80 mg In 71 100 Sodium Chloride 0.9% 100 ml @ 10 mls/hr IV Q10H REPLACED BY [facility] Rx#:[id number] Piperacillin Sodium/ 50 100 Tazobact 3.375 gm In Sodium Chloride 0.9% 50 ml @ 100 mls/hr IV Q8HR REPLACED BY [facility] Rx#:[id number] Sodium Chloride 0.9% 1, 1000 000 ml @ 50 mls/hr IV . Q20H REPLACED BY [facility] Rx#:[id number] Oral 780 200 Output: Urine 310 250 Other: # Bowel Movements 0 0 Active Medications: Current Medications Acetaminophen (Tylenol) 650 mg PO Q4HR PRN PRN Reason: Pain (Mild) Stop: 04/20/17 12:01 Last Admin: 02/21/17 09:54 Dose: 650 mg Acetaminophen/Hydrocodone Bitart ([place] 5mg/325mg) 1 tab PO Q6H PRN PRN Reason: PAIN Stop: 04/20/17 13:24 Aspirin (Ecotrin) 81 mg PO DAILY REPLACED BY [facility] Stop: 04/21/17 08:59 Last Admin: 02/24/17 08:17 Dose: 81 mg Docusate Sodium (Colace) 100 mg PO BID REPLACED BY [facility] Stop: 04/20/17 16:59 Last Admin: 02/24/17 08:19 Dose: 100 mg Fluconazole (Diflucan) 100 mg PO DAILY REPLACED BY [facility] Stop: 03/08/17 08:59 Last Admin: 02/24/17 08:17 Dose: 100 mg Furosemide (Lasix) 40 mg PO DAILY REPLACED BY [facility] Stop: 04/21/17 08:59 Last Admin: 02/24/17 08:23 Dose: 40 mg Norepinephrine Bitartrate 4 mg (/ Dextrose) 254 mls @ 19.05 mls/hr IV TITR PRN ; Protocol; 5 MCG/MIN PRN Reason: BP MAINTENANCE (PER PROTOCOL) Stop: 04/20/17 02:29 Last Admin: 02/24/17 07:53 Dose: 12 mcg/min, 45.72 mls/hr Pantoprazole Sodium 80 mg/ (Sodium Chloride) 100 mls @ 10 mls/hr IV Q10H REPLACED BY [facility] Stop: 04/20/17 08:59 Last Admin: 02/24/17 02:30 Dose: 10 mls/hr Piperacillin Sod/Tazobactam (Sod 3.375 gm/ Sodium Chloride) 50 mls @ 100 mls/ hr IV Q8HR REPLACED BY [facility] Stop: 04/20/17 20:59 Last Infusion: 02/24/17 06:05 Dose: Infused Linezolid (Zyvox) 600 mg in 300 mls @ 300 mls/hr IV Q12HR REPLACED BY [facility] Stop: 04/22/17 20:59 Last Admin: 02/24/17 08:17 Dose: 300 mls/hr Levofloxacin (Levaquin Pb) 250 mg in 50 mls @ 50 mls/hr IV Q24HR REPLACED BY [facility] Stop: 04/23/17 20:59 Last Infusion: 02/23/17 22:25 Dose: Infused Sodium Chloride (Nacl 0.9%) 1,000 mls @ 50 mls/hr IV .Q20H REPLACED BY [facility] Stop: 04/24/17 08:04 Last Admin: 02/24/17 05:00 Dose: 50 mls/hr Insulin Aspart (Novolog Insulin Sliding Scale) 0 units SUBQ ACHS [facility] PRN Reason: Protocol Stop: 04/20/17 16:29 Last Admin: 02/24/17 07:00 Dose: Not Given Miscellaneous (Probiotic Screen) 1 ea MC PRN PRN PRN Reason: PROTOCOL Stop: 04/21/17 16:25 Morphine Sulfate (Morphine) 1 mg IVP Q3H PRN PRN Reason: Pain (Moderate) Stop: 04/20/17 01:59 Last Admin: 02/23/17 22:22 Dose: 1 mg Nitroglycerin (Nitrostat) 0.4 mg SL Q5MIN PRN PRN Reason: Chest Pain Stop: 04/20/17 12:01 Nystatin (Nystop) 100,000 units TP BID PRN PRN Reason: SKIN EXCORIATIONS Stop: 04/21/17 15:35 Last Admin: 02/21/17 11:46 Dose: 100,000 units Ondansetron HCl (Zofran) 4 mg IV Q6H PRN PRN Reason: Nausea Stop: 04/20/17 03:38 General: No acute distress, no Cooperative HEENT: Atraumatic Neck: Supple, JVD, Thyromegaly Assessment/Plan - Problem List Patient Problems: All Active Problems Acute kidney failure (Acute) 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 Azotemia (Acute) R79.89 Bradycardia (Acute) R00.1 COPD (chronic obstructive pulmonary disease) (Acute) Cardiomegaly (Acute) I51.7 Chest pain (Acute) R07.9 Decubitus ulcer of buttock, 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 Nutritional Asmnt/Malnutr-PDOC - Dietary Evaluation Malnutrition Findings (Please click <Entered> for more info): Nutritional Asmnt/Malnutrition Start: 02/21/17 18: 20 Text: Status: Complete Freq: Document 02/21/17 18:21 LCHENG (Rec: 02/21/17 18:32 [email or web address] Nutritional Asmnt/Malnutrition Patient General Information Nutritional Screening High Risk Consult Diagnosis gastric outlet obstruction Pertinent Medical Hx/Surgical Hx HTN, OA, DM, GERD Subjective Information Pt seen sleeping at the time of visit, attempted x 2. Spoke with RN, pt consumed 50% of breakfast and only the soup of lunch today, not much appetite, no complain of N/V. Pt will be NPO from midnight for GI exam tommorrow. Current Diet Order/ Nutrition Support no added salt 4gm, CCHO, no eggs, banana and cereal in morning Pertinent Medications colace, lasix, novolog, levaquin, piperacillin Pertinent Labs 02/20 Na 137, K 4.5, Cl 104, BUN 55, Cr 1.6, Glucose 137, POC 126-199 since admit, Ca 8. 3 Nutritional Hx/Data Height 1.57 m Height (Calculated Centimeters) 157.5 Current Weight (lbs) 97.023 kg Weight (Calculated Kilograms) 97.0 Weight (Calculated Grams) 52052.4 [place] Body Weight 110 % [place] Body Weight 194 Body Mass Index (BMI) 39.1 Weight Status Obese GI Symptoms GI Symptoms None Last BM none Difficult in: None Skin Integrity/Comment: multiple maceration, abrasion to right/left medial thigh Current %PO Poor (25-49%) Estimated Nutritional Goals BEE in Kcals: Adj wt of IBW Calories/Kcals/Kg 27-32 Kcals Calculated Protein: Adj wt of IBW Protein g/k-1.2 Protein Calculated 62-74 Fluid: ml 9922-7234 Nutritional Problem 1. Problem Problem inadequate PO intake Etiology poor appetite Signs/Symptoms: PO intake 25-50% Malnutrition Alert Protein-Calorie Malnutrition N/A Is there a minimum of two criteria No selected? Query Text:Check all the applicable criteria. A minimum of two criteria are recommended for diagnosis of either severe or non-severe malnutrition. Intervention/Recommendation Comments 1. Continue with current diet as ordered. 2. Monitor PO intake, GI symptons, wt, labs and skin integrity 3. F/U as high risk in 2-3 days, 02/23-02/24 Expected Outcomes/Goals Expected Outcomes/Goals 1. PO intake to meet at least 75% of nutritional needs. 2. Wt stability, skin to remain intact, labs to improve
[2017-02-24 09:33] LABS: % BASOPHILS 0.4 % (0.0-2.0); % EOSINOPHILS 6.9 % (0.0-5.0); % LYMPHOCYTES 11.2 % (20.0-50.0); % MONOCYTES 5.1 % (2.0-10.0); % NEUTROPHILS 76.4 % (40.0-80.0); BASOPHILE ABSOLUTE 0.1 Th/cumm (0-0.2); EOSINOPHILE ABSOLUTE 1.1 Th/cmm (0.1-0.4); HEMATOCRIT 27.1 % (41.0-60); HEMOGLOBIN 8.6 gm/dL (12-16); LYMPHOCYTE ABSOLUTE 1.8 Th/cmm (1.5-3.0); MEAN CELL VOLUME 88.1 fl (81-100); MEAN CORPUSCULAR HEMOGLOBIN 27.9 pg (27.0-31.0); MEAN CORPUSCULAR HGB CONC 31.7 pg (28.0-36.0); MEAN PLATELET VOLUME 8.3 fl; MONOCYTE ABSOLUTE 0.8 Th/cmm (0.3-1.0); NEUTROPHILE ABSOLUTE 12.7 Th/cmm (1.8-8.0); PLATELET COUNT 217 Th/cmm (150-400); RED BLOOD COUNT 3.08 Mil/cmm (3.80-5.20); RED CELL DISTRIBUTION WIDTH 12.7 % (11.5-20.0)
[2017-02-24 09:44] LABS: WHITE BLOOD COUNT 16.5 Th/cmm (4.8-10.8)
[2017-02-24] MEDS: Morphine Sulfate 2 mg/mL 1mL Syr IVP PRN ×2 (12:43→22:18)
[2017-02-24] MEDS ORDERED: Sodium Chloride 0.9% 1,000 ML IV SCH (19:40)
[2017-02-24] MEDS: Levofloxacin 250 mg/50 mL Premix Bag IV SCH (21:16)
--- NOTE | 2017-02-24 21:31 | Internal Medicine Prog Note ---
Internal Medicine Subjective - Subjective Service Date: 02/24/17 Patient seen and examined:: with staff Patient is:: awake Per staff patient has:: tolerating meds Internal Medicine Objective - Results Result Diagrams: 02/24/17 07:50 02/24/17 07:50 Recent Labs: Laboratory Last Values WBC 16.5 Th/cmm (4.8-10.8) H D 02/24/17 07:50 RBC 3.08 Mil/cmm (3.80-5.20) L 02/24/17 07:50 Hgb 8.6 gm/dL (12-16) L 02/24/17 07:50 Hct 27.1 % (41.0-60) L 02/24/17 07:50 MCV 88.1 fl (81-100) 02/24/17 07:50 MCH 27.9 pg (27.0-31.0) 02/24/17 07:50 MCHC Differential 31.7 pg (28.0-36.0) 02/24/17 07:50 RDW 12.7 % (11.5-20.0) 02/24/17 07:50 Plt Count 217 Th/cmm (150-400) 02/24/17 07:50 MPV 8.3 fl 02/24/17 07:50 Neutrophils % 76.4 % (40.0-80.0) 02/24/17 07:50 Band Neutrophils % 3 % (0-10) 02/22/17 10:38 Lymphocytes % 11.2 % (20.0-50.0) L 02/24/17 07:50 Monocytes % 5.1 % (2.0-10.0) 02/24/17 07:50 Eosinophils % 6.9 % (0.0-5.0) H 02/24/17 07:50 Basophils % 0.4 % (0.0-2.0) 02/24/17 07:50 Neutrophils (Manual) 75 % (40-80) 02/22/17 10:38 Lymphocytes 12 % (20-50) L 02/22/17 10:38 Monocytes 5 % (2-10) 02/22/17 10:38 Eosinophils 5 % (0-5) 02/22/17 10:38 Metamyelocytes 1 % (0-0) H 02/18/17 23:35 Hypochromia 1+ 02/18/17 23:35 Platelet Estimate ADEQUATE (NORMAL) 02/19/17 04:11 PT 11.1 SECONDS (9.5-11.5) 02/19/17 04:11 INR 1.07 (0.5-1.4) 02/19/17 04:11 Specimen Source Arterial 02/19/17 10:13 Sample Site RB 02/19/17 10:13 pH 7.30 (7.35-7.45) L 02/19/17 10:13 pCO2 67.0 mmHg (35.0-45.0) H* 02/19/17 10:13 pO2 58.0 mmHg (80.0-100.0) L 02/19/17 10:13 HCO3 28.3 mEq/L (20.0-26.0) H 02/19/17 10:13 Base Excess 4.7 mEq/L (-3.0-3.0) H 02/19/17 10:13 O2 Saturation 87.0 % (92.0-100.0) L 02/19/17 10:13 Jorje Test NA 02/19/17 10:13 Vent Rate NA 02/19/17 10:13 Inspired O2 28 02/19/17 10:13 Tidal Volume NA 02/19/17 10:13 PEEP NA 02/19/17 10:13 Pressure (ins/psv/peep) NA 02/19/17 10:13 Critical Value SH 02/19/17 10:13 Sodium 126 mEq/L (136-145) L 02/24/17 07:50 Potassium 3.5 mEq/L (3.5-5.1) 02/24/17 07:50 Chloride 96 mEq/L (98-107) L 02/24/17 07:50 Carbon Dioxide 19.1 mEq/L (21.0-31.0) L 02/24/17 07:50 Anion Gap 14.4 (7.0-16.0) 02/24/17 07:50 BUN 48 mg/dL (7-25) H 02/24/17 07:50 Creatinine 2.6 mg/dL (0.6-1.2) H 02/24/17 07:50 Est GFR ( Amer) 23.5 ml/min (>90) 02/24/17 07:50 Est GFR (Non-Af Amer) 19.4 ml/min 02/24/17 07:50 BUN/Creatinine Ratio 18.5 02/24/17 07:50 Glucose 170 mg/dL (70-105) H 02/24/17 07:50 POC Glucose 202 MG/DL (70 - 105) H 02/24/17 20:43 Hemoglobin A1c % 5.8 % (4.0-6.0) 02/22/17 10:38 Whole Bld Lactic Acid 1.95 mmol/L (0.60-1.99) 02/19/17 09:30 Calcium 7.7 mg/dL (8.6-10.3) L 02/24/17 07:50 Magnesium 1.9 mg/dL (1.9-2.7) 02/24/17 07:50 Total Bilirubin 0.3 mg/dL (0.3-1.0) 02/24/17 07:50 Direct Bilirubin 0.09 mg/dL (0.0-0.2) 02/18/17 23:35 AST 10 U/L (13-39) L 02/24/17 07:50 ALT 4 U/L (7-52) L 02/24/17 07:50 Alkaline Phosphatase 50 U/L (34-104) 02/24/17 07:50 B-Natriuretic Peptide 220.0 pg/mL (5.0-100.0) H 02/22/17 10:38 Total Protein 5.7 gm/dL (6.0-8.3) L 02/24/17 07:50 Albumin 2.9 gm/dL (3.7-5.3) L 02/24/17 07:50 Globulin 2.8 gm/dL 02/24/17 07:50 Albumin/Globulin Ratio 1.0 (1.0-1.8) 02/24/17 07:50 Amylase 36 U/L (29-103) 02/18/17 23:35 Lipase 10 U/L (11-82) L 02/18/17 23:35 Urine Source [place] 02/20/17 16:15 Urine Color YELLOW 02/20/17 16:15 Urine Clarity CLOUDY (CLEAR) H 02/20/17 16:15 Urine pH 5.5 (4.6 - 8.0) 02/20/17 16:15 Ur Specific [place] 1.020 (1.005-1.030) 02/20/17 16:15 Urine Protein NEGATIVE mg/dL (NEGATIVE) 02/20/17 16:15 Urine Glucose (UA) NEGATIVE mg/dL (NEGATIVE) 02/20/17 16:15 Urine Ketones NEGATIVE mg/dL (NEGATIVE) 02/20/17 16:15 Urine Blood SMALL (NEGATIVE) H 02/20/17 16:15 Urine Nitrate NEGATIVE (NEGATIVE) 02/20/17 16:15 Urine Bilirubin NEGATIVE (NEGATIVE) 02/20/17 16:15 Urine Urobilinogen 0.2 E.U./dL (0.2 - 1.0) 02/20/17 16:15 Ur Leukocyte Esterase LARGE (NEGATIVE) H 02/20/17 16:15 Urine RBC 2-5 /hpf (0-5) 02/20/17 16:15 Urine WBC 25-50 /hpf (0-5) H 02/20/17 16:15 Ur Epithelial Cells FEW /lpf (FEW) 02/20/17 16:15 Urine Bacteria MODERATE /hpf (NONE SEEN) H 02/20/17 16:15 Urine Yeast MODERATE /hpf (NONE SEEN) H 02/20/17 16:15 Blood Type A POSITIVE 02/19/17 01:55 Antibody Screen NEGATIVE 02/19/17 01:55 - Physical Exam Vitals and I&O: Vital Signs Temp 97.8 F 02/24/17 20:00 Pulse 80 02/24/17 20:00 Resp 18 02/24/17 20:00 BP 119/56 02/24/17 20:00 Pulse Ox 95 02/24/17 20:00 Intake & Output 02/24/17 02/24/17 02/25/17 06:59 18:59 06:59 Intake Total 2097.345 934.246 539.192 Output Total 250 246 Balance 1847.345 688.246 539.192 Weight (lbs) 233 lb 233 lb Intake: Intake, IV Amount 1897.345 734.246 539.192 Levofloxacin 250mg/50mL 50 250 mg In 50 ml @ 50 mls/ hr IV Q24HR [facility] Rx#: [id number] Linezolid 600mg/300mL 600 300 300 300 mg In 300 ml @ 300 mls/ hr IV Q12HR [facility] Rx#: [id number] Norepinephrine 4 mg In 347.345 317.246 139.192 Dextrose 5% 250 ml @ 5 MCG/MIN 19.05 mls/hr IV TITR PRN Rx#:[id number] Pantoprazole 80 mg In 100 67 100 Sodium Chloride 0.9% 100 ml @ 10 mls/hr IV Q10H [facility] Rx#:[id number] Piperacillin Sodium/ 100 50 Tazobact 3.375 gm In Sodium Chloride 0.9% 50 ml @ 100 mls/hr IV Q8HR [facility] Rx#:[id number] Sodium Chloride 0.9% 1, 1000 000 ml @ 50 mls/hr IV . Q20H [facility] Rx#:[id number] Oral 200 200 Output: Urine 250 245 Stool 1 Other: # Bowel Movements 0 Active Medications: Current Medications Acetaminophen (Tylenol) 650 mg PO Q4HR PRN PRN Reason: Pain (Mild) Stop: 04/20/17 12:01 Last Admin: 02/21/17 09:54 Dose: 650 mg Acetaminophen/Hydrocodone Bitart ([place] 5mg/325mg) 1 tab PO Q6H PRN PRN Reason: PAIN Stop: 04/20/17 13:24 Aspirin (Ecotrin) 81 mg PO DAILY [facility] Stop: 04/21/17 08:59 Last Admin: 02/24/17 08:17 Dose: 81 mg Docusate Sodium (Colace) 100 mg PO BID [facility] Stop: 04/20/17 16:59 Last Admin: 02/24/17 17:39 Dose: 100 mg Fluconazole (Diflucan) 100 mg PO DAILY [facility] Stop: 03/08/17 08:59 Last Admin: 02/24/17 08:17 Dose: 100 mg Furosemide (Lasix) 40 mg PO DAILY [facility] Stop: 04/21/17 08:59 Last Admin: 02/24/17 08:23 Dose: 40 mg Norepinephrine Bitartrate 4 mg (/ Dextrose) 254 mls @ 19.05 mls/hr IV TITR PRN ; Protocol; 5 MCG/MIN PRN Reason: BP MAINTENANCE (PER PROTOCOL) Stop: 04/20/17 02:29 Last Titration: 02/24/17 20:00 Dose: 7 mcg/min, 26.67 mls/hr Pantoprazole Sodium 80 mg/ (Sodium Chloride) 100 mls @ 10 mls/hr IV Q10H [facility] Stop: 04/20/17 08:59 Last Admin: 02/24/17 19:15 Dose: 10 mls/hr Piperacillin Sod/Tazobactam (Sod 3.375 gm/ Sodium Chloride) 50 mls @ 100 mls/ hr IV Q8HR [facility] Stop: 04/20/17 20:59 Last Infusion: 02/24/17 13:15 Dose: Infused Linezolid (Zyvox) 600 mg in 300 mls @ 300 mls/hr IV Q12HR [facility] Stop: 04/22/17 20:59 Last Infusion: 02/24/17 21:16 Dose: Infused Levofloxacin (Levaquin Pb) 250 mg in 50 mls @ 50 mls/hr IV Q24HR [facility] Stop: 04/23/17 20:59 Last Admin: 02/24/17 21:16 Dose: 50 mls/hr Sodium Chloride (Nacl 0.9%) 1,000 mls @ 0 mls/hr IV .Q0M [facility] PRN Reason: KVO Stop: 04/25/17 19:38 Insulin Aspart (Novolog Insulin Sliding Scale) 0 units SUBQ ACHS [facility] PRN Reason: Protocol Stop: 04/20/17 16:29 Last Admin: 02/24/17 21:15 Dose: 4 units Miscellaneous (Probiotic Screen) 1 ea MC PRN PRN PRN Reason: PROTOCOL Stop: 04/21/17 16:25 Morphine Sulfate (Morphine) 1 mg IVP Q3H PRN PRN Reason: Pain (Moderate) Stop: 04/20/17 01:59 Last Admin: 02/24/17 12:43 Dose: 1 mg Nitroglycerin (Nitrostat) 0.4 mg SL Q5MIN PRN PRN Reason: Chest Pain Stop: 04/20/17 12:01 Nystatin (Nystop) 100,000 units TP BID PRN PRN Reason: SKIN EXCORIATIONS Stop: 04/21/17 15:35 Last Admin: 02/21/17 11:46 Dose: 100,000 units Ondansetron HCl (Zofran) 4 mg IV Q6H PRN PRN Reason: Nausea Stop: 04/20/17 03:38 General: alert HEENT: NC/AT, PERRLA Neck: Supple Lungs: CTAB Abdomen: soft, non-tender, non-distended Extremities: excoriation Neurological: alert Internal Medicine Assmt/Plan - Assessment Assessment: Acute kidney failure (Acute) 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 Azotemia (Acute) R79.89 Bradycardia (Acute) R00.1 COPD (chronic obstructive pulmonary disease) (Acute) Cardiomegaly (Acute) I51.7 Chest pain (Acute) R07.9 Decubitus ulcer of buttock, 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 - Plan Plan: monitor glucose continue ivabx as per id follow up labs in am continue current orders Nutritional Asmnt/Malnutr-PDOC - Dietary Evaluation Malnutrition Findings (Please click <Entered> for more info): Nutritional Asmnt/Malnutrition Start: 02/21/17 18: 20 Text: Status: Complete Freq: Document 02/21/17 18:21 L[facility]ENG (Rec: 02/21/17 18:32 LCHENG [place] [id number]) Nutritional Asmnt/Malnutrition Patient General Information Nutritional Screening High Risk Consult Diagnosis gastric outlet obstruction Pertinent Medical Hx/Surgical Hx HTN, OA, DM, GERD Subjective Information Pt seen sleeping at the time of visit, attempted x 2. Spoke with RN, pt consumed 50% of breakfast and only the soup of lunch today, not much appetite, no complain of N/V. Pt will be NPO from midnight for GI exam tommorrow. Current Diet Order/ Nutrition Support no added salt 4gm, CCHO, no eggs, banana and cereal in morning Pertinent Medications colace, lasix, novolog, levaquin, piperacillin Pertinent Labs 02/20 Na 137, K 4.5, Cl 104, BUN 55, Cr 1.6, Glucose 137, POC 126-199 since admit, Ca 8. 3 Nutritional Hx/Data Height 5 ft 2 in Height (Calculated Centimeters) 157.5 Current Weight (lbs) 213 lb 14.4 oz Weight (Calculated Kilograms) 97.0 Weight (Calculated Grams) 12410.4 [place] Body Weight 110 % [place] Body Weight 194 Body Mass Index (BMI) 39.1 Weight Status Obese GI Symptoms GI Symptoms None Last BM none Difficult in: None Skin Integrity/Comment: multiple maceration, abrasion to right/left medial thigh Current %PO Poor (25-49%) Estimated Nutritional Goals BEE in Kcals: Adj wt of IBW Calories/Kcals/Kg 27-32 Kcals Calculated Protein: Adj wt of IBW Protein g/k-1.2 Protein Calculated 62-74 Fluid: ml Nutritional Problem 1. Problem Problem inadequate PO intake Etiology poor appetite Signs/Symptoms: PO intake 25-50% Malnutrition Alert Protein-Calorie Malnutrition N/A Is there a minimum of two criteria No selected? Query Text:Check all the applicable criteria. A minimum of two criteria are recommended for diagnosis of either severe or non-severe malnutrition. Intervention/Recommendation Comments 1. Continue with current diet as ordered. 2. Monitor PO intake, GI symptons, wt, labs and skin integrity 3. F/U as high risk in 2-3 days, 02/23-02/24 Expected Outcomes/Goals Expected Outcomes/Goals 1. PO intake to meet at least 75% of nutritional needs. 2. Wt stability, skin to remain intact, labs to improve
[2017-02-25] MEDS: Pantoprazole 80 MG in Sodium Chloride 0.9% 100 ML IV SCH ×2 (04:12→15:08)
[2017-02-25] MEDS: Morphine Sulfate 2 mg/mL 1mL Syr IVP PRN ×2 (04:13→17:30)
[2017-02-25 05:00] LABS: HEMATOCRIT 26.6 % (41.0-60); HEMOGLOBIN 8.6 gm/dL (12-16); MEAN CELL VOLUME 86.4 fl (81-100); MEAN CORPUSCULAR HEMOGLOBIN 27.8 pg (27.0-31.0); MEAN CORPUSCULAR HGB CONC 32.2 pg (28.0-36.0); MEAN PLATELET VOLUME 7.7 fl; PLATELET COUNT 206 Th/cmm (150-400); RED BLOOD COUNT 3.08 Mil/cmm (3.80-5.20); RED CELL DISTRIBUTION WIDTH 12.8 % (11.5-20.0)
[2017-02-25 05:05] LABS: WHITE BLOOD COUNT 15.3 Th/cmm (4.8-10.8)
[2017-02-25 05:23] LABS: ANION GAP 13.8 (7.0-16.0); CALCIUM SERUM 7.8 mg/dL (8.6-10.3); CARBON DIOXIDE 19.5 mEq/L (21.0-31.0); CREATININE - SERUM 2.8 mg/dL (0.6-1.2); GFR AFRICAN-AMERICAN 21.5 ml/min (>90); GFR NON AFRICAN-AMERICAN 17.8 ml/min; POTASSIUM SERUM 3.3 mEq/L (3.5-5.1)
[2017-02-25 05:53] LABS: BAND NEUTROPHILE 5 % (0-10); EOSINOPHIL 9 % (0-5); LYMPHOCYTE 13 % (20-50); MONOCYTE 6 % (2-10); NEUTROPHILS 67 % (40-80); TOTAL CELLS COUNTED 100
[2017-02-25] MEDS: INSULIN ASPART SLIDING SCALE 100 UNITS/ML UNIT SUBQ SCH ×4 (06:32→21:35)
[2017-02-25] MEDS: Multivitamin w/ Minerals Tab PO SCH (08:53)
[2017-02-25] MEDS: Linezolid 600mg/300mL 600 MG/300 ML BAG IV SCH ×3 (08:54→22:30)
--- NOTE | 2017-02-25 12:13 | Internal Medicine Prog Note ---
Internal Medicine Subjective - Subjective Service Date: 02/25/17 Patient is:: awake Per staff patient has:: tolerating meds Internal Medicine Objective - Results Result Diagrams: 02/25/17 04:50 02/25/17 04:50 Recent Labs: Laboratory Last Values WBC 15.3 Th/cmm (4.8-10.8) H 02/25/17 04:50 RBC 3.08 Mil/cmm (3.80-5.20) L 02/25/17 04:50 Hgb 8.6 gm/dL (12-16) L 02/25/17 04:50 Hct 26.6 % (41.0-60) L 02/25/17 04:50 MCV 86.4 fl (81-100) 02/25/17 04:50 MCH 27.8 pg (27.0-31.0) 02/25/17 04:50 MCHC Differential 32.2 pg (28.0-36.0) 02/25/17 04:50 RDW 12.8 % (11.5-20.0) 02/25/17 04:50 Plt Count 206 Th/cmm (150-400) 02/25/17 04:50 MPV 7.7 fl 02/25/17 04:50 Neutrophils % [employer] 02/25/17 04:50 Band Neutrophils % 5 % (0-10) 02/25/17 04:50 Lymphocytes % [employer] 02/25/17 04:50 Monocytes % [employer] 02/25/17 04:50 Eosinophils % [employer] 02/25/17 04:50 Basophils % [employer] 02/25/17 04:50 Neutrophils (Manual) 67 % (40-80) 02/25/17 04:50 Lymphocytes 13 % (20-50) L 02/25/17 04:50 Monocytes 6 % (2-10) 02/25/17 04:50 Eosinophils 9 % (0-5) H 02/25/17 04:50 Metamyelocytes 1 % (0-0) H 02/18/17 23:35 Hypochromia 1+ 02/18/17 23:35 Platelet Estimate ADEQUATE (NORMAL) 02/19/17 04:11 PT 11.1 SECONDS (9.5-11.5) 02/19/17 04:11 INR 1.07 (0.5-1.4) 02/19/17 04:11 Specimen Source Arterial 02/19/17 10:13 Sample Site RB 02/19/17 10:13 pH 7.30 (7.35-7.45) L 02/19/17 10:13 pCO2 67.0 mmHg (35.0-45.0) H* 02/19/17 10:13 pO2 58.0 mmHg (80.0-100.0) L 02/19/17 10:13 HCO3 28.3 mEq/L (20.0-26.0) H 02/19/17 10:13 Base Excess 4.7 mEq/L (-3.0-3.0) H 02/19/17 10:13 O2 Saturation 87.0 % (92.0-100.0) L 02/19/17 10:13 Jorje Test NA 02/19/17 10:13 Vent Rate NA 02/19/17 10:13 Inspired O2 28 02/19/17 10:13 Tidal Volume NA 02/19/17 10:13 PEEP NA 02/19/17 10:13 Pressure (ins/psv/peep) NA 02/19/17 10:13 Critical Value SH 02/19/17 10:13 Sodium 124 mEq/L (136-145) L 02/25/17 04:50 Potassium 3.3 mEq/L (3.5-5.1) L 02/25/17 04:50 Chloride 94 mEq/L (98-107) L 02/25/17 04:50 Carbon Dioxide 19.5 mEq/L (21.0-31.0) L 02/25/17 04:50 Anion Gap 13.8 (7.0-16.0) 02/25/17 04:50 BUN 47 mg/dL (7-25) H 02/25/17 04:50 Creatinine 2.8 mg/dL (0.6-1.2) H 02/25/17 04:50 Est GFR ( Amer) 21.5 ml/min (>90) 02/25/17 04:50 Est GFR (Non-Af Amer) 17.8 ml/min 02/25/17 04:50 BUN/Creatinine Ratio 16.8 02/25/17 04:50 Glucose 156 mg/dL (70-105) H 02/25/17 04:50 POC Glucose 193 MG/DL (70 - 105) H 02/25/17 11:47 Hemoglobin A1c % 5.8 % (4.0-6.0) 02/22/17 10:38 Whole Bld Lactic Acid 1.95 mmol/L (0.60-1.99) 02/19/17 09:30 Calcium 7.8 mg/dL (8.6-10.3) L 02/25/17 04:50 Magnesium 1.9 mg/dL (1.9-2.7) 02/24/17 07:50 Total Bilirubin 0.3 mg/dL (0.3-1.0) 02/24/17 07:50 Direct Bilirubin 0.09 mg/dL (0.0-0.2) 02/18/17 23:35 AST 10 U/L (13-39) L 02/24/17 07:50 ALT 4 U/L (7-52) L 02/24/17 07:50 Alkaline Phosphatase 50 U/L (34-104) 02/24/17 07:50 B-Natriuretic Peptide 220.0 pg/mL (5.0-100.0) H 02/22/17 10:38 Total Protein 5.7 gm/dL (6.0-8.3) L 02/24/17 07:50 Albumin 2.9 gm/dL (3.7-5.3) L 02/24/17 07:50 Globulin 2.8 gm/dL 02/24/17 07:50 Albumin/Globulin Ratio 1.0 (1.0-1.8) 02/24/17 07:50 Amylase 36 U/L (29-103) 02/18/17 23:35 Lipase 10 U/L (11-82) L 02/18/17 23:35 TSH 0.84 uIU/ml (0.34-5.60) 02/25/17 04:50 Urine Source [place] 02/20/17 16:15 Urine Color YELLOW 02/20/17 16:15 Urine Clarity CLOUDY (CLEAR) H 02/20/17 16:15 Urine pH 5.5 (4.6 - 8.0) 02/20/17 16:15 Ur Specific [place] 1.020 (1.005-1.030) 02/20/17 16:15 Urine Protein NEGATIVE mg/dL (NEGATIVE) 02/20/17 16:15 Urine Glucose (UA) NEGATIVE mg/dL (NEGATIVE) 02/20/17 16:15 Urine Ketones NEGATIVE mg/dL (NEGATIVE) 02/20/17 16:15 Urine Blood SMALL (NEGATIVE) H 02/20/17 16:15 Urine Nitrate NEGATIVE (NEGATIVE) 02/20/17 16:15 Urine Bilirubin NEGATIVE (NEGATIVE) 02/20/17 16:15 Urine Urobilinogen 0.2 E.U./dL (0.2 - 1.0) 02/20/17 16:15 Ur Leukocyte Esterase LARGE (NEGATIVE) H 02/20/17 16:15 Urine RBC 2-5 /hpf (0-5) 02/20/17 16:15 Urine WBC 25-50 /hpf (0-5) H 02/20/17 16:15 Ur Epithelial Cells FEW /lpf (FEW) 02/20/17 16:15 Urine Bacteria MODERATE /hpf (NONE SEEN) H 02/20/17 16:15 Urine Yeast MODERATE /hpf (NONE SEEN) H 02/20/17 16:15 Blood Type A POSITIVE 02/19/17 01:55 Antibody Screen NEGATIVE 02/19/17 01:55 - Physical Exam Vitals and I&O: Vital Signs Temp 98.9 F 02/25/17 04:00 Pulse 74 02/25/17 07:00 Resp 22 02/25/17 07:00 BP 107/39 02/25/17 08:53 Pulse Ox 94 02/25/17 07:00 Intake & Output 02/24/17 02/25/17 02/25/17 18:59 06:59 18:59 Intake Total 243.603 3562.838 91.313 Output Total 246 Balance 801.492 3024.838 91.313 Weight (lbs) 233 lb Intake: Intake, IV Amount 458.574 8560.838 91.313 Levofloxacin 250mg/50mL 50 250 mg In 50 ml @ 50 mls/ hr IV Q24HR [facility] Rx#: [id number] Linezolid 600mg/300mL 600 300 300 mg In 300 ml @ 300 mls/ hr IV Q12HR [facility] Rx#: [id number] Norepinephrine 4 mg In 317.246 415.671 91.313 Dextrose 5% 250 ml @ 5 MCG/MIN 19.05 mls/hr IV TITR PRN Rx#:[id number] Pantoprazole 80 mg In 67 211.167 Sodium Chloride 0.9% 100 ml @ 10 mls/hr IV Q10H [facility] Rx#:[id number] Piperacillin Sodium/ 50 100 Tazobact 3.375 gm In Sodium Chloride 0.9% 50 ml @ 100 mls/hr IV Q8HR [facility] Rx#:[id number] Oral 200 Output: Urine 245 Stool 1 Active Medications: Current Medications Acetaminophen (Tylenol) 650 mg PO Q4HR PRN PRN Reason: Pain (Mild) Stop: 04/20/17 12:01 Last Admin: 02/21/17 09:54 Dose: 650 mg Acetaminophen/Hydrocodone Bitart ([place] 5mg/325mg) 1 tab PO Q6H PRN PRN Reason: PAIN Stop: 04/20/17 13:24 Aspirin (Ecotrin) 81 mg PO DAILY [facility] Stop: 04/21/17 08:59 Last Admin: 02/25/17 08:54 Dose: 81 mg Docusate Sodium (Colace) 100 mg PO BID [facility] Stop: 04/20/17 16:59 Last Admin: 02/25/17 08:54 Dose: 100 mg Fluconazole (Diflucan) 100 mg PO DAILY [facility] Stop: 03/08/17 08:59 Last Admin: 02/25/17 08:54 Dose: 100 mg Furosemide (Lasix) 40 mg PO DAILY [facility] Stop: 04/21/17 08:59 Last Admin: 02/25/17 08:53 Dose: 40 mg Norepinephrine Bitartrate 4 mg (/ Dextrose) 254 mls @ 19.05 mls/hr IV TITR PRN ; Protocol; 5 MCG/MIN PRN Reason: BP MAINTENANCE (PER PROTOCOL) Stop: 04/20/17 02:29 Last Admin: 02/25/17 10:28 Dose: 7 mcg/min, 26.67 mls/hr Pantoprazole Sodium 80 mg/ (Sodium Chloride) 100 mls @ 10 mls/hr IV Q10H [facility] Stop: 04/20/17 08:59 Last Infusion: 02/25/17 06:22 Dose: 10 mls/hr Piperacillin Sod/Tazobactam (Sod 3.375 gm/ Sodium Chloride) 50 mls @ 100 mls/ hr IV Q8HR [facility] Stop: 04/20/17 20:59 Last Infusion: 02/25/17 05:29 Dose: Infused Linezolid (Zyvox) 600 mg in 300 mls @ 300 mls/hr IV Q12HR [facility] Stop: 04/22/17 20:59 Last Admin: 02/25/17 08:54 Dose: 300 mls/hr Levofloxacin (Levaquin Pb) 250 mg in 50 mls @ 50 mls/hr IV Q24HR [facility] Stop: 04/23/17 20:59 Last Infusion: 02/24/17 22:16 Dose: Infused Sodium Chloride (Nacl 0.9%) 1,000 mls @ 0 mls/hr IV .Q0M [facility] PRN Reason: KVO Stop: 04/25/17 19:38 Insulin Aspart (Novolog Insulin Sliding Scale) 0 units SUBQ ACHS [facility] PRN Reason: Protocol Stop: 04/20/17 16:29 Last Admin: 02/25/17 06:32 Dose: Not Given Miscellaneous (Probiotic Screen) 1 ea MC PRN PRN PRN Reason: PROTOCOL Stop: 04/21/17 16:25 Morphine Sulfate (Morphine) 1 mg IVP Q3H PRN PRN Reason: Pain (Moderate) Stop: 04/20/17 01:59 Last Admin: 02/25/17 04:13 Dose: 1 mg Nitroglycerin (Nitrostat) 0.4 mg SL Q5MIN PRN PRN Reason: Chest Pain Stop: 04/20/17 12:01 Nystatin (Nystop) 100,000 units TP BID PRN PRN Reason: SKIN EXCORIATIONS Stop: 04/21/17 15:35 Last Admin: 02/21/17 11:46 Dose: 100,000 units Ondansetron HCl (Zofran) 4 mg IV Q6H PRN PRN Reason: Nausea Stop: 04/20/17 03:38 General: alert HEENT: NC/AT, PERRLA Neck: Supple Lungs: CTAB Abdomen: soft, non-tender, non-distended Extremities: excoriation Neurological: alert Internal Medicine Assmt/Plan - Assessment Assessment: Acute kidney failure (Acute) 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 Azotemia (Acute) R79.89 Bradycardia (Acute) R00.1 COPD (chronic obstructive pulmonary disease) (Acute) Cardiomegaly (Acute) I51.7 Chest pain (Acute) R07.9 Decubitus ulcer of buttock, 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 - Plan Plan: monitor glucose continue ivabx as per id follow up labs in am continue current orders Nutritional Asmnt/Malnutr-PDOC - Dietary Evaluation Malnutrition Findings (Please click <Entered> for more info): Nutritional Asmnt/Malnutrition Start: 02/21/17 18: 20 Text: Status: Complete Freq: Document 02/21/17 18:21 LCANCELMOG (Rec: 02/21/17 18:32 [facility] Nutritional Asmnt/Malnutrition Patient General Information Nutritional Screening High Risk Consult Diagnosis gastric outlet obstruction Pertinent Medical Hx/Surgical Hx HTN, OA, DM, GERD Subjective Information Pt seen sleeping at the time of visit, attempted x 2. Spoke with RN, pt consumed 50% of breakfast and only the soup of lunch today, not much appetite, no complain of N/V. Pt will be NPO from midnight for GI exam tommorrow. Current Diet Order/ Nutrition Support no added salt 4gm, CCHO, no eggs, banana and cereal in morning Pertinent Medications colace, lasix, novolog, levaquin, piperacillin Pertinent Labs 02/20 Na 137, K 4.5, Cl 104, BUN 55, Cr 1.6, Glucose 137, POC 126-199 since admit, Ca 8. 3 Nutritional Hx/Data Height 5 ft 2 in Height (Calculated Centimeters) 157.5 Current Weight (lbs) 213 lb 14.4 oz Weight (Calculated Kilograms) 97.0 Weight (Calculated Grams) 35411.4 [place] Body Weight 110 % [place] Body Weight 194 Body Mass Index (BMI) 39.1 Weight Status Obese GI Symptoms GI Symptoms None Last BM none Difficult in: None Skin Integrity/Comment: multiple maceration, abrasion to right/left medial thigh Current %PO Poor (25-49%) Estimated Nutritional Goals BEE in Kcals: Adj wt of IBW Calories/Kcals/Kg 27-32 Kcals Calculated Protein: Adj wt of IBW Protein g/k-1.2 Protein Calculated 62-74 Fluid: ml 5629-2044 Nutritional Problem 1. Problem Problem inadequate PO intake Etiology poor appetite Signs/Symptoms: PO intake 25-50% Malnutrition Alert Protein-Calorie Malnutrition N/A Is there a minimum of two criteria No selected? Query Text:Check all the applicable criteria. A minimum of two criteria are recommended for diagnosis of either severe or non-severe malnutrition. Intervention/Recommendation Comments 1. Continue with current diet as ordered. 2. Monitor PO intake, GI symptons, wt, labs and skin integrity 3. F/U as high risk in 2-3 days, 02/23-02/24 Expected Outcomes/Goals Expected Outcomes/Goals 1. PO intake to meet at least 75% of nutritional needs. 2. Wt stability, skin to remain intact, labs to improve
[2017-02-25] MEDS ORDERED: Potassium Chloride 20 mEq ER Tab PO ONE (13:06)
[2017-02-25] MEDS: Levofloxacin 250 mg/50 mL Premix Bag IV SCH (20:27)
[2017-02-25 21:58] LABS: INR 1.08 (0.5-1.4); PROTHROMBIN TIME (TEST) 11.2 SECONDS (9.5-11.5)
[2017-02-26] MEDS: Pantoprazole 80 MG in Sodium Chloride 0.9% 100 ML IV SCH ×2 (00:57→11:00)
[2017-02-26 05:10] LABS: ALB/GLOB RATIO 1.1 (1.0-1.8); ANION GAP 13.7 (7.0-16.0); BILIRUBIN,TOTAL 0.3 mg/dL (0.3-1.0); CALCIUM SERUM 7.8 mg/dL (8.6-10.3); CARBON DIOXIDE 20.8 mEq/L (21.0-31.0); GFR AFRICAN-AMERICAN 19.9 ml/min (>90); GFR NON AFRICAN-AMERICAN 16.4 ml/min; POTASSIUM SERUM 3.5 mEq/L (3.5-5.1); TOTAL PROTEIN,SERUM 5.8 gm/dL (6.0-8.3)
[2017-02-26] MEDS: INSULIN ASPART SLIDING SCALE 100 UNITS/ML UNIT SUBQ SCH ×4 (06:44→21:10)
[2017-02-26 08:07] LABS: T3 FREE 0.7 pg/mL (2.0-4.4); T4 FREE 1.04 ng/dL (0.82-1.77)
[2017-02-26] MEDS: Linezolid 600mg/300mL 600 MG/300 ML BAG IV SCH ×2 (08:48→21:47)
[2017-02-26] MEDS: Morphine Sulfate 2 mg/mL 1mL Syr IVP PRN ×3 (08:48→21:56)
[2017-02-26] MEDS: Multivitamin w/ Minerals Tab PO SCH (08:49)
--- NOTE | 2017-02-26 14:26 | Infectious Disease Prog Note ---
Infectious Disease Subjective - Review of Systems Service Date: 02/26/17 Subjective: There is no new change. There is no fever. Infectious Disease Objective - Results Result Diagrams: 02/25/17 04:50 02/26/17 04:45 Recent Labs: Laboratory Last Values WBC 15.3 Th/cmm (4.8-10.8) H 02/25/17 04:50 RBC 3.08 Mil/cmm (3.80-5.20) L 02/25/17 04:50 Hgb 8.6 gm/dL (12-16) L 02/25/17 04:50 Hct 26.6 % (41.0-60) L 02/25/17 04:50 MCV 86.4 fl (81-100) 02/25/17 04:50 MCH 27.8 pg (27.0-31.0) 02/25/17 04:50 MCHC Differential 32.2 pg (28.0-36.0) 02/25/17 04:50 RDW 12.8 % (11.5-20.0) 02/25/17 04:50 Plt Count 206 Th/cmm (150-400) 02/25/17 04:50 MPV 7.7 fl 02/25/17 04:50 Neutrophils % [employer]ERSON 02/25/17 04:50 Band Neutrophils % 5 % (0-10) 02/25/17 04:50 Lymphocytes % [employer]PERSON 02/25/17 04:50 Monocytes % [employer]PERSON 02/25/17 04:50 Eosinophils % BUSPERSON 02/25/17 04:50 Basophils % BUSPERSON 02/25/17 04:50 Neutrophils (Manual) 67 % (40-80) 02/25/17 04:50 Lymphocytes 13 % (20-50) L 02/25/17 04:50 Monocytes 6 % (2-10) 02/25/17 04:50 Eosinophils 9 % (0-5) H 02/25/17 04:50 Metamyelocytes 1 % (0-0) H 02/18/17 23:35 Hypochromia 1+ 02/18/17 23:35 Platelet Estimate ADEQUATE (NORMAL) 02/19/17 04:11 PT 11.2 SECONDS (9.5-11.5) 02/25/17 21:23 INR 1.08 (0.5-1.4) 02/25/17 21:23 PTT ([place] FS) 38.3 SECONDS (26.0-38.0) H 02/25/17 21:23 Specimen Source Arterial 02/19/17 10:13 Sample Site RB 02/19/17 10:13 pH 7.30 (7.35-7.45) L 02/19/17 10:13 pCO2 67.0 mmHg (35.0-45.0) H* 02/19/17 10:13 pO2 58.0 mmHg (80.0-100.0) L 02/19/17 10:13 HCO3 28.3 mEq/L (20.0-26.0) H 02/19/17 10:13 Base Excess 4.7 mEq/L (-3.0-3.0) H 02/19/17 10:13 O2 Saturation 87.0 % (92.0-100.0) L 02/19/17 10:13 Jorje Test NA 02/19/17 10:13 Vent Rate NA 02/19/17 10:13 Inspired O2 28 02/19/17 10:13 Tidal Volume NA 02/19/17 10:13 PEEP NA 02/19/17 10:13 Pressure (ins/psv/peep) NA 02/19/17 10:13 Critical Value SH 02/19/17 10:13 Sodium 121 mEq/L (136-145) L 02/26/17 04:45 Potassium 3.5 mEq/L (3.5-5.1) 02/26/17 04:45 Chloride 90 mEq/L (98-107) L 02/26/17 04:45 Carbon Dioxide 20.8 mEq/L (21.0-31.0) L 02/26/17 04:45 Anion Gap 13.7 (7.0-16.0) 02/26/17 04:45 BUN 48 mg/dL (7-25) H 02/26/17 04:45 Creatinine 3.0 mg/dL (0.6-1.2) H 02/26/17 04:45 Est GFR ( Amer) 19.9 ml/min (>90) 02/26/17 04:45 Est GFR (Non-Af Amer) 16.4 ml/min 02/26/17 04:45 BUN/Creatinine Ratio 16.0 02/26/17 04:45 Glucose 168 mg/dL (70-105) H 02/26/17 04:45 POC Glucose 153 MG/DL (70 - 105) H 02/26/17 11:29 Hemoglobin A1c % 5.8 % (4.0-6.0) 02/22/17 10:38 Whole Bld Lactic Acid 1.95 mmol/L (0.60-1.99) 02/19/17 09:30 Calcium 7.8 mg/dL (8.6-10.3) L 02/26/17 04:45 Magnesium 1.9 mg/dL (1.9-2.7) 02/24/17 07:50 Total Bilirubin 0.3 mg/dL (0.3-1.0) 02/26/17 04:45 Direct Bilirubin 0.09 mg/dL (0.0-0.2) 02/18/17 23:35 AST 11 U/L (13-39) L 02/26/17 04:45 ALT 5 U/L (7-52) L 02/26/17 04:45 Alkaline Phosphatase 52 U/L (34-104) 02/26/17 04:45 B-Natriuretic Peptide 220.0 pg/mL (5.0-100.0) H 02/22/17 10:38 Total Protein 5.8 gm/dL (6.0-8.3) L 02/26/17 04:45 Albumin 3.0 gm/dL (3.7-5.3) L 02/26/17 04:45 Globulin 2.8 gm/dL 02/26/17 04:45 Albumin/Globulin Ratio 1.1 (1.0-1.8) 02/26/17 04:45 Amylase 36 U/L (29-103) 02/18/17 23:35 Lipase 10 U/L (11-82) L 02/18/17 23:35 Free T4 1.04 ng/dL (0.82-1.77) 02/25/17 04:50 Free T3 0.7 pg/mL (2.0-4.4) L 02/25/17 04:50 TSH 0.84 uIU/ml (0.34-5.60) 02/25/17 04:50 Urine Source [place] 02/20/17 16:15 Urine Color YELLOW 02/20/17 16:15 Urine Clarity CLOUDY (CLEAR) H 02/20/17 16:15 Urine pH 5.5 (4.6 - 8.0) 02/20/17 16:15 Ur Specific [place] 1.020 (1.005-1.030) 02/20/17 16:15 Urine Protein NEGATIVE mg/dL (NEGATIVE) 02/20/17 16:15 Urine Glucose (UA) NEGATIVE mg/dL (NEGATIVE) 02/20/17 16:15 Urine Ketones NEGATIVE mg/dL (NEGATIVE) 02/20/17 16:15 Urine Blood SMALL (NEGATIVE) H 02/20/17 16:15 Urine Nitrate NEGATIVE (NEGATIVE) 02/20/17 16:15 Urine Bilirubin NEGATIVE (NEGATIVE) 02/20/17 16:15 Urine Urobilinogen 0.2 E.U./dL (0.2 - 1.0) 02/20/17 16:15 Ur Leukocyte Esterase LARGE (NEGATIVE) H 02/20/17 16:15 Urine RBC 2-5 /hpf (0-5) 02/20/17 16:15 Urine WBC 25-50 /hpf (0-5) H 02/20/17 16:15 Ur Epithelial Cells FEW /lpf (FEW) 02/20/17 16:15 Urine Bacteria MODERATE /hpf (NONE SEEN) H 02/20/17 16:15 Urine Yeast MODERATE /hpf (NONE SEEN) H 02/20/17 16:15 Blood Type A POSITIVE 02/19/17 01:55 Antibody Screen NEGATIVE 02/19/17 01:55 - Physical Exam Vitals and I&O: Vital Signs Temp 96.8 F 02/26/17 13:52 Pulse 82 02/26/17 14:15 Resp 17 02/26/17 13:52 BP 93/48 02/26/17 14:15 Pulse Ox 100 02/26/17 14:00 Intake & Output 02/25/17 02/26/17 02/26/17 18:59 06:59 18:59 Intake Total 308.864 6520.271 704 Output Total 100 Balance 519.646 945.271 704 Weight (lbs) 105.687 kg Intake: Intake, IV Amount 519.646 995.271 704 Levofloxacin 250mg/50mL 50 250 mg In 50 ml @ 50 mls/ hr IV Q24HR [facility] Rx#: [id number] Linezolid 600mg/300mL 600 300 300 300 mg In 300 ml @ 300 mls/ hr IV Q12HR [facility] Rx#: [id number] Norepinephrine 4 mg In 91.313 447.104 254 Dextrose 5% 250 ml @ 5 MCG/MIN 19.05 mls/hr IV TITR PRN Rx#:[id number] Pantoprazole 80 mg In 78.333 98.167 100 Sodium Chloride 0.9% 100 ml @ 10 mls/hr IV Q10H [facility] Rx#:[id number] Piperacillin Sodium/ 50 100 50 Tazobact 3.375 gm In Sodium Chloride 0.9% 50 ml @ 100 mls/hr IV Q8HR [facility] Rx#:[id number] Oral 50 Output: Urine 100 Other: # Bowel Movements 1 Stool Characteristics Soft Soft Black Black Green Green Active Medications: Current Medications Acetaminophen (Tylenol) 650 mg PO Q4HR PRN PRN Reason: Pain (Mild) Stop: 04/20/17 12:01 Last Admin: 02/21/17 09:54 Dose: 650 mg Acetaminophen/Hydrocodone Bitart ([place] 5mg/325mg) 1 tab PO Q6H PRN PRN Reason: PAIN Stop: 04/20/17 13:24 Aspirin (Ecotrin) 81 mg PO DAILY [facility] Stop: 04/21/17 08:59 Last Admin: 02/26/17 08:50 Dose: 81 mg Docusate Sodium (Colace) 100 mg PO BID [facility] Stop: 04/20/17 16:59 Last Admin: 02/26/17 08:49 Dose: 100 mg Fluconazole (Diflucan) 100 mg PO DAILY [facility] Stop: 03/08/17 08:59 Last Admin: 02/26/17 08:49 Dose: 100 mg Furosemide (Lasix) 40 mg PO DAILY [facility] Stop: 04/21/17 08:59 Last Admin: 02/26/17 08:49 Dose: 40 mg Norepinephrine Bitartrate 4 mg (/ Dextrose) 254 mls @ 19.05 mls/hr IV TITR PRN ; Protocol; 5 MCG/MIN PRN Reason: BP MAINTENANCE (PER PROTOCOL) Stop: 04/20/17 02:29 Last Admin: 02/26/17 09:33 Dose: 13 mcg/min, 49.53 mls/hr Pantoprazole Sodium 80 mg/ (Sodium Chloride) 100 mls @ 10 mls/hr IV Q10H [facility] Stop: 04/20/17 08:59 Last Admin: 02/26/17 11:00 Dose: 10 mls/hr Piperacillin Sod/Tazobactam (Sod 3.375 gm/ Sodium Chloride) 50 mls @ 100 mls/ hr IV Q8HR [facility] Stop: 04/20/17 20:59 Last Infusion: 02/26/17 12:45 Dose: Infused Linezolid (Zyvox) 600 mg in 300 mls @ 300 mls/hr IV Q12HR [facility] Stop: 04/22/17 20:59 Last Infusion: 02/26/17 09:50 Dose: Infused Levofloxacin (Levaquin Pb) 250 mg in 50 mls @ 50 mls/hr IV Q24HR [facility] Stop: 04/23/17 20:59 Last Infusion: 02/25/17 21:35 Dose: Infused Sodium Chloride (Nacl 0.9%) 1,000 mls @ 0 mls/hr IV .Q0M [facility] PRN Reason: KVO Stop: 04/25/17 19:38 Insulin Aspart (Novolog Insulin Sliding Scale) 0 units SUBQ ACHS [facility] PRN Reason: Protocol Stop: 04/20/17 16:29 Last Admin: 02/26/17 12:14 Dose: Not Given Mirtazapine (Remeron) 15 mg PO HS [facility] PRN Reason: Protocol Stop: 04/26/17 20:59 Last Admin: 02/25/17 22:55 Dose: 15 mg Miscellaneous (Probiotic Screen) 1 ea MC PRN PRN PRN Reason: PROTOCOL Stop: 04/21/17 16:25 Morphine Sulfate (Morphine) 1 mg IVP Q3H PRN PRN Reason: Pain (Moderate) Stop: 04/20/17 01:59 Last Admin: 02/26/17 08:48 Dose: 1 mg Nitroglycerin (Nitrostat) 0.4 mg SL Q5MIN PRN PRN Reason: Chest Pain Stop: 04/20/17 12:01 Nystatin (Nystop) 100,000 units TP BID PRN PRN Reason: SKIN EXCORIATIONS Stop: 04/21/17 15:35 Last Admin: 02/21/17 11:46 Dose: 100,000 units Ondansetron HCl (Zofran) 4 mg IV Q6H PRN PRN Reason: Nausea Stop: 04/20/17 03:38 Spironolactone (Aldactone) 50 mg PO BID [facility] Stop: 04/27/17 08:59 Last Admin: 02/26/17 08:48 Dose: 50 mg General: no acute distress, well developed, well nourished HEENT: atraumatic, normocephalic Neck: supple, no thyromegaly Cardiovascular: S1S2, regular Lungs: clear to percussion, rhonchi Abdomen: soft, no tender, no distended Extremities: no cyanosis, no clubbing, no edema Neurological: awake, alert Skin: intact Infectious Disease Assmt/Plan - Problem List Patient Problems: All Active Problems Acute kidney failure (Acute) 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 Sepsis. 2. Pneumonia. 3. UTI, Candiduria. 4. Renal failure. 5. Hypotension, - Plan Plan: Will continue Zyvox IV, Zosyn IV and diflucan. Nutritional Asmnt/Malnutr-PDOC - Dietary Evaluation Malnutrition Findings (Please click <Entered> for more info): Nutritional Asmnt/Malnutrition Start: 02/21/17 18: 20 Text: Status: Complete Freq: Document 02/21/17 18:21 [email or web address] (Rec: 02/21/17 18:32 [email or web address] [id number]) Nutritional Asmnt/Malnutrition Patient General Information Nutritional Screening High Risk Consult Diagnosis gastric outlet obstruction Pertinent Medical Hx/Surgical Hx HTN, OA, DM, GERD Subjective Information Pt seen sleeping at the time of visit, attempted x 2. Spoke with RN, pt consumed 50% of breakfast and only the soup of lunch today, not much appetite, no complain of N/V. Pt will be NPO from midnight for GI exam tommorrow. Current Diet Order/ Nutrition Support no added salt 4gm, CCHO, no eggs, banana and cereal in morning Pertinent Medications colace, lasix, novolog, levaquin, piperacillin Pertinent Labs 02/20 Na 137, K 4.5, Cl 104, BUN 55, Cr 1.6, Glucose 137, POC 126-199 since admit, Ca 8. 3 Nutritional Hx/Data Height 1.57 m Height (Calculated Centimeters) 157.5 Current Weight (lbs) 97.023 kg Weight (Calculated Kilograms) 97.0 Weight (Calculated Grams) 54929.4 Marcy Body Weight 110 % Marcy Body Weight 194 Body Mass Index (BMI) 39.1 Weight Status Obese GI Symptoms GI Symptoms None Last BM none Difficult in: None Skin Integrity/Comment: multiple maceration, abrasion to right/left medial thigh Current %PO Poor (25-49%) Estimated Nutritional Goals BEE in Kcals: Adj wt of IBW Calories/Kcals/Kg 27-32 Kcals Calculated Protein: Adj wt of IBW Protein g/k-1.2 Protein Calculated 62-74 Fluid: ml Nutritional Problem 1. Problem Problem inadequate PO intake Etiology poor appetite Signs/Symptoms: PO intake 25-50% Malnutrition Alert Protein-Calorie Malnutrition N/A Is there a minimum of two criteria No selected? Query Text:Check all the applicable criteria. A minimum of two criteria are recommended for diagnosis of either severe or non-severe malnutrition. Intervention/Recommendation Comments 1. Continue with current diet as ordered. 2. Monitor PO intake, GI symptons, wt, labs and skin integrity 3. F/U as high risk in 2-3 days, 02/23-02/24 Expected Outcomes/Goals Expected Outcomes/Goals 1. PO intake to meet at least 75% of nutritional needs. 2. Wt stability, skin to remain intact, labs to improve
[2017-02-26] MEDS: Albuterol/Ipratropium Neb 3 ML AERS HHN SCH (19:53)
[2017-02-26] MEDS: Levofloxacin 250 mg/50 mL Premix Bag IV SCH (21:11)
[2017-02-26] MEDS: Diltiazem 5 mg/mL 5mL Vial IVP PRN (22:09)
[2017-02-27] MEDS: Albuterol/Ipratropium Neb 3 ML AERS HHN PRN ×2 (00:41→22:57)
[2017-02-27] MEDS ORDERED: Sodium Chloride 0.45% 1,000 ML IV SCH (00:52)
[2017-02-27] MEDS: Pantoprazole 80 MG in Sodium Chloride 0.9% 100 ML IV SCH ×3 (03:32→17:43)
[2017-02-27] MEDS ORDERED: Norepinephrine 4 mg/4mL Vial IV ONE ×2 (04:06→06:30)
[2017-02-27] MEDS ORDERED: Piperacillin Sodium/Tazobact 2.25 gm Vial IV ONE (04:07)
[2017-02-27] MEDS: Diltiazem 5 mg/mL 5mL Vial IVP PRN (04:59)
[2017-02-27] MEDS: INSULIN ASPART SLIDING SCALE 100 UNITS/ML UNIT SUBQ SCH ×4 (06:54→21:19)
[2017-02-27] MEDS: Albuterol/Ipratropium Neb 3 ML AERS HHN SCH ×3 (07:25→19:45)
[2017-02-27] MEDS ORDERED: Albuterol/Ipratropium Neb 3 ML AERS HHN SCH (08:00)
[2017-02-27 08:25] LABS: pH 7.08 (7.35-7.45)
[2017-02-27] MEDS ORDERED: Midazolam 1mg/ml 2 ml vial IV ONE ×2 (08:32)
[2017-02-27 08:47] LABS: ALLEN TEST Positive
--- NOTE | 2017-02-27 09:05 | Diagnostic Imaging Report ---
Portable chest x-ray HISTORY: Shortness of breath Compared to prior exam of February 19, 2017, patient is rotated. There is marked cardiomegaly. Evidence for small right pleural effusion. An endotracheal tube tip is at the abhishek. This should be pulled back approximately 2.0 cm. A nasogastric tube extends below the diaphragm into the region of the stomach. IMPRESSION: 1. Endotracheal tube tip at the abhishek. This should be pulled back approximately 2.0 cm 2. Nasogastric tube extending below the diaphragm into the region of the stomach 3. Cardiomegaly along with evidence of a small right pleural effusion. Findings suggest a degree of congestive heart failure. Clinical correlation is needed.
--- NOTE | 2017-02-27 09:11 | General Progress Note ---
Subjective - Review of Systems Service Date: 02/27/17 Subjective: ER Physician Procedure Note: ET tube placement Called to have pt intubated at about 0825 because pt developed respiratory failure. I responded immediately. On arrival, pt was on supplemental O2 and appeared to be in respiratory distress. ABG 7.08/66/51/15.7/69% O2 saturation. Pt therefore was being bagged with 100% O2 to attain O2 saturation above 90%. Pt was awake and responded to verbal command. I explained to pt about the procedure of endotracheal placement. Pt agreed with nodding her head. Pt was sedated with Versed 1 mg IVP. A 7.5 ET tube was placed to 22 cm uneventfully with the aid of Glidescope. Proper placement of the ET tube was confirmed with end tidal CO2 detector (turns yellow) and with auscultation ( good ventilation sounds in R and L lung [place]). Pt's O2 saturation immediately improved to 97 to 100%. Pt's attending physician Dr. Yates was updated by phone regarding pt's clinical condition. He resumed care of pt at about 0900. Objective - Results Result Diagrams: 02/25/17 04:50 02/26/17 04:45 Recent Labs: Laboratory Last Values WBC 15.3 Th/cmm (4.8-10.8) H 02/25/17 04:50 RBC 3.08 Mil/cmm (3.80-5.20) L 02/25/17 04:50 Hgb 8.6 gm/dL (12-16) L 02/25/17 04:50 Hct 26.6 % (41.0-60) L 02/25/17 04:50 MCV 86.4 fl (81-100) 02/25/17 04:50 MCH 27.8 pg (27.0-31.0) 02/25/17 04:50 MCHC Differential 32.2 pg (28.0-36.0) 02/25/17 04:50 RDW 12.8 % (11.5-20.0) 02/25/17 04:50 Plt Count 206 Th/cmm (150-400) 02/25/17 04:50 MPV 7.7 fl 02/25/17 04:50 Neutrophils % DEMOLITION WORKER 02/25/17 04:50 Band Neutrophils % 5 % (0-10) 02/25/17 04:50 Lymphocytes % DEMOLITION WORKER 02/25/17 04:50 Monocytes % DEMOLITION WORKER 02/25/17 04:50 Eosinophils % DEMOLITION WORKER 02/25/17 04:50 Basophils % DEMOLITION WORKER 02/25/17 04:50 Neutrophils (Manual) 67 % (40-80) 02/25/17 04:50 Lymphocytes 13 % (20-50) L 02/25/17 04:50 Monocytes 6 % (2-10) 02/25/17 04:50 Eosinophils 9 % (0-5) H 02/25/17 04:50 Metamyelocytes 1 % (0-0) H 02/18/17 23:35 Hypochromia 1+ 02/18/17 23:35 Platelet Estimate ADEQUATE (NORMAL) 02/19/17 04:11 PT 11.2 SECONDS (9.5-11.5) 02/25/17 21:23 INR 1.08 (0.5-1.4) 02/25/17 21:23 PTT (Actin FS) 38.3 SECONDS (26.0-38.0) H 02/25/17 21:23 Specimen Source Arterial 02/27/17 08:08 Sample Site Left Radial 02/27/17 08:08 pH 7.08 (7.35-7.45) L* 02/27/17 08:08 pCO2 66.0 mmHg (35.0-45.0) H* 02/27/17 08:08 pO2 51.0 mmHg (80.0-100.0) L 02/27/17 08:08 HCO3 15.7 mEq/L (20.0-26.0) L 02/27/17 08:08 Base Excess -11.0 mEq/L (-3.0-3.0) L 02/27/17 08:08 O2 Saturation 69.0 % (92.0-100.0) L 02/27/17 08:08 Jorje Test Positive 02/27/17 08:08 Vent Rate NA 02/27/17 08:08 Inspired O2 36 02/27/17 08:08 Tidal Volume NA 02/27/17 08:08 PEEP NA 02/27/17 08:08 Pressure (ins/psv/peep) NA 02/27/17 08:08 Critical Value LZHANG 02/27/17 08:08 Sodium 121 mEq/L (136-145) L 02/26/17 04:45 Potassium 3.5 mEq/L (3.5-5.1) 02/26/17 04:45 Chloride 90 mEq/L (98-107) L 02/26/17 04:45 Carbon Dioxide 20.8 mEq/L (21.0-31.0) L 02/26/17 04:45 Anion Gap 13.7 (7.0-16.0) 02/26/17 04:45 BUN 48 mg/dL (7-25) H 02/26/17 04:45 Creatinine 3.0 mg/dL (0.6-1.2) H 02/26/17 04:45 Est GFR ( Amer) 19.9 ml/min (>90) 02/26/17 04:45 Est GFR (Non-Af Amer) 16.4 ml/min 02/26/17 04:45 BUN/Creatinine Ratio 16.0 02/26/17 04:45 Glucose 168 mg/dL (70-105) H 02/26/17 04:45 POC Glucose 247 MG/DL (70 - 105) H 02/27/17 06:51 Hemoglobin A1c % 5.8 % (4.0-6.0) 02/22/17 10:38 Whole Bld Lactic Acid 1.95 mmol/L (0.60-1.99) 02/19/17 09:30 Calcium 7.8 mg/dL (8.6-10.3) L 02/26/17 04:45 Magnesium 1.9 mg/dL (1.9-2.7) 02/24/17 07:50 Total Bilirubin 0.3 mg/dL (0.3-1.0) 02/26/17 04:45 Direct Bilirubin 0.09 mg/dL (0.0-0.2) 02/18/17 23:35 AST 11 U/L (13-39) L 02/26/17 04:45 ALT 5 U/L (7-52) L 02/26/17 04:45 Alkaline Phosphatase 52 U/L (34-104) 02/26/17 04:45 B-Natriuretic Peptide 220.0 pg/mL (5.0-100.0) H 02/22/17 10:38 Total Protein 5.8 gm/dL (6.0-8.3) L 02/26/17 04:45 Albumin 3.0 gm/dL (3.7-5.3) L 02/26/17 04:45 Globulin 2.8 gm/dL 02/26/17 04:45 Albumin/Globulin Ratio 1.1 (1.0-1.8) 02/26/17 04:45 Amylase 36 U/L (29-103) 02/18/17 23:35 Lipase 10 U/L (11-82) L 02/18/17 23:35 Free T4 1.04 ng/dL (0.82-1.77) 02/25/17 04:50 Free T3 0.7 pg/mL (2.0-4.4) L 02/25/17 04:50 TSH 0.84 uIU/ml (0.34-5.60) 02/25/17 04:50 Urine Source [place] 02/20/17 16:15 Urine Color YELLOW 02/20/17 16:15 Urine Clarity CLOUDY (CLEAR) H 02/20/17 16:15 Urine pH 5.5 (4.6 - 8.0) 02/20/17 16:15 Ur Specific [place] 1.020 (1.005-1.030) 02/20/17 16:15 Urine Protein NEGATIVE mg/dL (NEGATIVE) 02/20/17 16:15 Urine Glucose (UA) NEGATIVE mg/dL (NEGATIVE) 02/20/17 16:15 Urine Ketones NEGATIVE mg/dL (NEGATIVE) 02/20/17 16:15 Urine Blood SMALL (NEGATIVE) H 02/20/17 16:15 Urine Nitrate NEGATIVE (NEGATIVE) 02/20/17 16:15 Urine Bilirubin NEGATIVE (NEGATIVE) 02/20/17 16:15 Urine Urobilinogen 0.2 E.U./dL (0.2 - 1.0) 02/20/17 16:15 Ur Leukocyte Esterase LARGE (NEGATIVE) H 02/20/17 16:15 Urine RBC 2-5 /hpf (0-5) 02/20/17 16:15 Urine WBC 25-50 /hpf (0-5) H 02/20/17 16:15 Ur Epithelial Cells FEW /lpf (FEW) 02/20/17 16:15 Urine Bacteria MODERATE /hpf (NONE SEEN) H 02/20/17 16:15 Urine Yeast MODERATE /hpf (NONE SEEN) H 02/20/17 16:15 Blood Type A POSITIVE 02/19/17 01:55 Antibody Screen NEGATIVE 02/19/17 01:55 - Physical Exam Vitals and I&O: Vital Signs Temp 97.2 F 02/27/17 04:00 Pulse 89 02/27/17 07:33 Resp 18 02/27/17 07:33 BP 110/61 02/27/17 07:00 Pulse Ox 96 02/27/17 07:33 Active Medications: Current Medications Acetaminophen (Tylenol) 650 mg PO Q4HR PRN PRN Reason: Pain (Mild) Stop: 04/20/17 12:01 Last Admin: 02/21/17 09:54 Dose: 650 mg Acetaminophen/Hydrocodone Bitart ([place] 5mg/325mg) 1 tab PO Q6H PRN PRN Reason: PAIN Stop: 04/20/17 13:24 Albuterol/Ipratropium (Duoneb Neb) 3 ml HHN Q4HRT PRN PRN Reason: Wheezing Stop: 04/27/17 19:59 Last Admin: 02/27/17 00:41 Dose: 3 ml Albuterol/Ipratropium (Duoneb Neb) 3 ml HHN [id number] [facility] Stop: 04/27/17 19:59 Last Admin: 02/27/17 07:25 Dose: 3 ml Aspirin (Ecotrin) 81 mg PO DAILY [facility] Stop: 04/21/17 08:59 Last Admin: 02/26/17 08:50 Dose: 81 mg Chlorhexidine Gluconate (Peridex) 15 ml MM 0800,2000 [facility] Stop: 04/28/17 19:59 Diltiazem HCl (Cardizem) 5 mg IVP Q4H PRN PRN Reason: HR > 120 Stop: 04/27/17 19:59 Last Admin: 02/27/17 04:59 Dose: 5 mg Docusate Sodium (Colace) 100 mg PO BID [facility] Stop: 04/20/17 16:59 Last Admin: 02/26/17 17:42 Dose: 100 mg Fluconazole (Diflucan) 100 mg PO DAILY [facility] Stop: 03/08/17 08:59 Last Admin: 02/26/17 08:49 Dose: 100 mg Furosemide (Lasix) 40 mg PO DAILY [facility] Stop: 04/21/17 08:59 Last Admin: 02/26/17 08:49 Dose: 40 mg Pantoprazole Sodium 80 mg/ (Sodium Chloride) 100 mls @ 10 mls/hr IV Q10H [facility] Stop: 04/20/17 08:59 Last Admin: 02/27/17 03:32 Dose: 10 mls/hr Linezolid (Zyvox) 600 mg in 300 mls @ 300 mls/hr IV Q12HR [facility] Stop: 04/22/17 20:59 Last Infusion: 02/26/17 22:50 Dose: Infused Levofloxacin (Levaquin Pb) 250 mg in 50 mls @ 50 mls/hr IV Q24HR [facility] Stop: 04/23/17 20:59 Last Infusion: 02/26/17 21:45 Dose: Infused Sodium Chloride (Nacl 0.9%) 1,000 mls @ 0 mls/hr IV .Q0M [facility] PRN Reason: KVO Stop: 04/25/17 19:38 Piperacillin Sod/Tazobactam (Sod 2.25 gm/ Sodium Chloride) 50 mls @ 100 mls/hr IV Q8HR [facility] Stop: 04/28/17 04:59 Last Infusion: 02/27/17 05:40 Dose: Infused Norepinephrine Bitartrate 4 mg (/ Dextrose) 258 mls @ 0 mls/hr IV TITR PRN; Protocol; Per Protocol PRN Reason: BP MAINTENANCE (PER PROTOCOL) Stop: 04/20/17 02:29 Phenylephrine HCl 10 mg/ (Sodium Chloride) 250 mls @ 0 mls/hr IV TITR [facility]; Per Protocol PRN Reason: Protocol Stop: 04/28/17 07:59 Insulin Aspart (Novolog Insulin Sliding Scale) 0 units SUBQ ACHS [facility] PRN Reason: Protocol Stop: 04/20/17 16:29 Last Admin: 02/27/17 06:54 Dose: 4 units Midazolam HCl (Versed) 1 mg IV X1 ONE Stop: 02/27/17 08:33 Mirtazapine (Remeron) 15 mg PO HS [facility] PRN Reason: Protocol Stop: 04/26/17 20:59 Last Admin: 02/26/17 20:30 Dose: 15 mg Miscellaneous (Probiotic Screen) 1 ea MC PRN PRN PRN Reason: PROTOCOL Stop: 04/21/17 16:25 Morphine Sulfate (Morphine) 1 mg IVP Q3H PRN PRN Reason: Pain (Moderate) Stop: 04/20/17 01:59 Last Admin: 02/26/17 21:56 Dose: 1 mg Nitroglycerin (Nitrostat) 0.4 mg SL Q5MIN PRN PRN Reason: Chest Pain Stop: 04/20/17 12:01 Nystatin (Nystop) 100,000 units TP BID PRN PRN Reason: SKIN EXCORIATIONS Stop: 04/21/17 15:35 Last Admin: 02/21/17 11:46 Dose: 100,000 units Ondansetron HCl (Zofran) 4 mg IV Q6H PRN PRN Reason: Nausea Stop: 04/20/17 03:38 Spironolactone (Aldactone) 50 mg PO BID [facility] Stop: 04/27/17 08:59 Last Admin: 02/26/17 17:41 Dose: 50 mg General: No acute distress, no Cooperative HEENT: Atraumatic Neck: Supple, JVD, Thyromegaly Assessment/Plan - Problem List Patient Problems: All Active Problems Acute kidney failure (Acute) 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
[2017-02-27] MEDS: Linezolid 600mg/300mL 600 MG/300 ML BAG IV SCH ×2 (09:25→21:32)
[2017-02-27] MEDS: Multivitamin w/ Minerals Tab PO SCH (09:39)
[2017-02-27 09:46] LABS: pH 7.18 (7.35-7.45)
[2017-02-27 09:47] LABS: ALLEN TEST Positive
[2017-02-27] MEDS ORDERED: Sodium Bicarbonate 8.4% 50mEq PFS IVP ONE (11:11)
--- NOTE | 2017-02-27 12:01 | Infectious Disease Prog Note ---
Infectious Disease Subjective - Review of Systems Service Date: 02/27/17 Subjective: shortness of breath with hypoxia, ABG showed respiratory failure with acidosis. Infectious Disease Objective - Results Result Diagrams: 02/25/17 04:50 02/26/17 04:45 Recent Labs: Laboratory Last Values WBC 15.3 Th/cmm (4.8-10.8) H 02/25/17 04:50 RBC 3.08 Mil/cmm (3.80-5.20) L 02/25/17 04:50 Hgb 8.6 gm/dL (12-16) L 02/25/17 04:50 Hct 26.6 % (41.0-60) L 02/25/17 04:50 MCV 86.4 fl (81-100) 02/25/17 04:50 MCH 27.8 pg (27.0-31.0) 02/25/17 04:50 MCHC Differential 32.2 pg (28.0-36.0) 02/25/17 04:50 RDW 12.8 % (11.5-20.0) 02/25/17 04:50 Plt Count 206 Th/cmm (150-400) 02/25/17 04:50 MPV 7.7 fl 02/25/17 04:50 Neutrophils % GEOPHYSICAL OPERATOR 02/25/17 04:50 Band Neutrophils % 5 % (0-10) 02/25/17 04:50 Lymphocytes % GEOPHYSICAL OPERATOR 02/25/17 04:50 Monocytes % GEOPHYSICAL OPERATOR 02/25/17 04:50 Eosinophils % GEOPHYSICAL OPERATOR 02/25/17 04:50 Basophils % GEOPHYSICAL OPERATOR 02/25/17 04:50 Neutrophils (Manual) 67 % (40-80) 02/25/17 04:50 Lymphocytes 13 % (20-50) L 02/25/17 04:50 Monocytes 6 % (2-10) 02/25/17 04:50 Eosinophils 9 % (0-5) H 02/25/17 04:50 Metamyelocytes 1 % (0-0) H 02/18/17 23:35 Hypochromia 1+ 02/18/17 23:35 Platelet Estimate ADEQUATE (NORMAL) 02/19/17 04:11 PT 11.2 SECONDS (9.5-11.5) 02/25/17 21:23 INR 1.08 (0.5-1.4) 02/25/17 21:23 PTT (Actin FS) 38.3 SECONDS (26.0-38.0) H 02/25/17 21:23 Specimen Source Arterial 02/27/17 09:35 Sample Site Right Radial 02/27/17 09:35 pH 7.18 (7.35-7.45) L* 02/27/17 09:35 pCO2 47.0 mmHg (35.0-45.0) H 02/27/17 09:35 pO2 424.0 mmHg (80.0-100.0) H 02/27/17 09:35 HCO3 16.7 mEq/L (20.0-26.0) L 02/27/17 09:35 Base Excess -10.7 mEq/L (-3.0-3.0) L 02/27/17 09:35 O2 Saturation 100.0 % (92.0-100.0) 02/27/17 09:35 Jorje Test Positive 02/27/17 09:35 Vent Rate 18 02/27/17 09:35 Inspired O2 100 02/27/17 09:35 Tidal Volume 550 02/27/17 09:35 PEEP 5 02/27/17 09:35 Pressure (ins/psv/peep) NA 02/27/17 09:35 Critical Value LZHANG 02/27/17 09:35 Sodium 121 mEq/L (136-145) L 02/26/17 04:45 Potassium 3.5 mEq/L (3.5-5.1) 02/26/17 04:45 Chloride 90 mEq/L (98-107) L 02/26/17 04:45 Carbon Dioxide 20.8 mEq/L (21.0-31.0) L 02/26/17 04:45 Anion Gap 13.7 (7.0-16.0) 02/26/17 04:45 BUN 48 mg/dL (7-25) H 02/26/17 04:45 Creatinine 3.0 mg/dL (0.6-1.2) H 02/26/17 04:45 Est GFR ( Amer) 19.9 ml/min (>90) 02/26/17 04:45 Est GFR (Non-Af Amer) 16.4 ml/min 02/26/17 04:45 BUN/Creatinine Ratio 16.0 02/26/17 04:45 Glucose 168 mg/dL (70-105) H 02/26/17 04:45 POC Glucose 247 MG/DL (70 - 105) H 02/27/17 06:51 Hemoglobin A1c % 5.8 % (4.0-6.0) 02/22/17 10:38 Whole Bld Lactic Acid 1.95 mmol/L (0.60-1.99) 02/19/17 09:30 Calcium 7.8 mg/dL (8.6-10.3) L 02/26/17 04:45 Magnesium 1.9 mg/dL (1.9-2.7) 02/24/17 07:50 Total Bilirubin 0.3 mg/dL (0.3-1.0) 02/26/17 04:45 Direct Bilirubin 0.09 mg/dL (0.0-0.2) 02/18/17 23:35 AST 11 U/L (13-39) L 02/26/17 04:45 ALT 5 U/L (7-52) L 02/26/17 04:45 Alkaline Phosphatase 52 U/L (34-104) 02/26/17 04:45 B-Natriuretic Peptide 220.0 pg/mL (5.0-100.0) H 02/22/17 10:38 Total Protein 5.8 gm/dL (6.0-8.3) L 02/26/17 04:45 Albumin 3.0 gm/dL (3.7-5.3) L 02/26/17 04:45 Globulin 2.8 gm/dL 02/26/17 04:45 Albumin/Globulin Ratio 1.1 (1.0-1.8) 02/26/17 04:45 Amylase 36 U/L (29-103) 02/18/17 23:35 Lipase 10 U/L (11-82) L 02/18/17 23:35 Free T4 1.04 ng/dL (0.82-1.77) 02/25/17 04:50 Free T3 0.7 pg/mL (2.0-4.4) L 02/25/17 04:50 TSH 0.84 uIU/ml (0.34-5.60) 02/25/17 04:50 Urine Source [place] 02/20/17 16:15 Urine Color YELLOW 02/20/17 16:15 Urine Clarity CLOUDY (CLEAR) H 02/20/17 16:15 Urine pH 5.5 (4.6 - 8.0) 02/20/17 16:15 Ur Specific [place] 1.020 (1.005-1.030) 02/20/17 16:15 Urine Protein NEGATIVE mg/dL (NEGATIVE) 02/20/17 16:15 Urine Glucose (UA) NEGATIVE mg/dL (NEGATIVE) 02/20/17 16:15 Urine Ketones NEGATIVE mg/dL (NEGATIVE) 02/20/17 16:15 Urine Blood SMALL (NEGATIVE) H 02/20/17 16:15 Urine Nitrate NEGATIVE (NEGATIVE) 02/20/17 16:15 Urine Bilirubin NEGATIVE (NEGATIVE) 02/20/17 16:15 Urine Urobilinogen 0.2 E.U./dL (0.2 - 1.0) 02/20/17 16:15 Ur Leukocyte Esterase LARGE (NEGATIVE) H 02/20/17 16:15 Urine RBC 2-5 /hpf (0-5) 02/20/17 16:15 Urine WBC 25-50 /hpf (0-5) H 02/20/17 16:15 Ur Epithelial Cells FEW /lpf (FEW) 02/20/17 16:15 Urine Bacteria MODERATE /hpf (NONE SEEN) H 02/20/17 16:15 Urine Yeast MODERATE /hpf (NONE SEEN) H 02/20/17 16:15 Blood Type A POSITIVE 02/19/17 01:55 Antibody Screen NEGATIVE 02/19/17 01:55 - Physical Exam Vitals and I&O: Vital Signs Temp 97.2 F 02/27/17 04:00 Pulse 88 02/27/17 09:00 Resp 18 02/27/17 07:33 BP 88/50 02/27/17 09:39 Pulse Ox 100 02/27/17 08:40 Intake & Output 02/26/17 02/27/17 02/27/17 18:59 06:59 18:59 Intake Total 958 1995.426 72.443 Output Total 150 Balance 958 1845.426 72.443 Weight (lbs) 105.687 kg Intake: Intake, IV Amount 958 1795.426 72.443 Levofloxacin 250mg/50mL 50 250 mg In 50 ml @ 50 mls/ hr IV Q24HR [facility] Rx#: [id number] Linezolid 600mg/300mL 600 300 300 mg In 300 ml @ 300 mls/ hr IV Q12HR [facility] Rx#: [id number] Norepinephrine 4 mg In 508 1245.426 Dextrose 5% 250 ml @ 5 MCG/MIN 19.05 mls/hr IV TITR PRN Rx#:[id number] Norepinephrine 8 mg In 11.61 Sodium Chloride 0.9% 250 ml @ Per Protocol IV TITR [facility] Rx#:[id number] Pantoprazole 80 mg In 100 100 60.833 Sodium Chloride 0.9% 100 ml @ 10 mls/hr IV Q10H [facility] Rx#:[id number] Piperacillin Sodium/ 50 Tazobact 2.25 gm In Sodium Chloride 0.9% 50 ml @ 100 mls/hr IV Q8HR [facility] Rx#:[id number] Piperacillin Sodium/ 50 50 Tazobact 3.375 gm In Sodium Chloride 0.9% 50 ml @ 100 mls/hr IV Q8HR [facility] Rx#:[id number] Oral 200 Output: Urine 150 Other: # Bowel Movements 0 Stool Characteristics Soft [place] Active Medications: Current Medications Acetaminophen (Tylenol) 650 mg PO Q4HR PRN PRN Reason: Pain (Mild) Stop: 04/20/17 12:01 Last Admin: 02/21/17 09:54 Dose: 650 mg Acetaminophen/Hydrocodone Bitart ([place] 5mg/325mg) 1 tab PO Q6H PRN PRN Reason: PAIN Stop: 04/20/17 13:24 Albuterol/Ipratropium (Duoneb Neb) 3 ml HHN Q4HRT PRN PRN Reason: Wheezing Stop: 04/27/17 19:59 Last Admin: 02/27/17 00:41 Dose: 3 ml Albuterol/Ipratropium (Duoneb Neb) 3 ml HHN [id number] [facility] Stop: 04/27/17 19:59 Last Admin: 02/27/17 07:25 Dose: 3 ml Aspirin (Ecotrin) 81 mg PO DAILY [facility] Stop: 04/21/17 08:59 Last Admin: 02/27/17 09:39 Dose: Not Given Chlorhexidine Gluconate (Peridex) 15 ml MM 0800,2000 [facility] Stop: 04/28/17 19:59 Diltiazem HCl (Cardizem) 5 mg IVP Q4H PRN PRN Reason: HR > 120 Stop: 04/27/17 19:59 Last Admin: 02/27/17 04:59 Dose: 5 mg Docusate Sodium (Colace) 100 mg PO BID [facility] Stop: 04/20/17 16:59 Last Admin: 02/27/17 09:39 Dose: Not Given Fluconazole (Diflucan) 100 mg PO DAILY [facility] Stop: 03/08/17 08:59 Last Admin: 02/27/17 09:39 Dose: Not Given Furosemide (Lasix) 40 mg PO DAILY [facility] Stop: 04/21/17 08:59 Last Admin: 02/27/17 09:39 Dose: Not Given Pantoprazole Sodium 80 mg/ (Sodium Chloride) 100 mls @ 10 mls/hr IV Q10H [facility] Stop: 04/20/17 08:59 Last Admin: 02/27/17 09:38 Dose: 10 mls/hr Linezolid (Zyvox) 600 mg in 300 mls @ 300 mls/hr IV Q12HR [facility] Stop: 04/22/17 20:59 Last Admin: 02/27/17 09:25 Dose: 300 mls/hr Levofloxacin (Levaquin Pb) 250 mg in 50 mls @ 50 mls/hr IV Q24HR [facility] Stop: 04/23/17 20:59 Last Infusion: 02/26/17 21:45 Dose: Infused Sodium Chloride (Nacl 0.9%) 1,000 mls @ 0 mls/hr IV .Q0M [facility] PRN Reason: KVO Stop: 04/25/17 19:38 Piperacillin Sod/Tazobactam (Sod 2.25 gm/ Sodium Chloride) 50 mls @ 100 mls/hr IV Q8HR [facility] Stop: 04/28/17 04:59 Last Infusion: 02/27/17 05:40 Dose: Infused Phenylephrine HCl 10 mg/ (Sodium Chloride) 250 mls @ 0 mls/hr IV TITR [facility]; Per Protocol PRN Reason: Protocol Stop: 04/28/17 07:59 Norepinephrine Bitartrate 8 mg (/ Sodium Chloride) 258 mls @ 0 mls/hr IV TITR [facility]; Per Protocol PRN Reason: Protocol Stop: 04/28/17 09:59 Last Titration: 12/31/17 10:50 Dose: 24 mcg/min, 46.44 mls/hr Insulin Aspart (Novolog Insulin Sliding Scale) 0 units SUBQ ACHS [facility] PRN Reason: Protocol Stop: 04/20/17 16:29 Last Admin: 02/27/17 06:54 Dose: 4 units Mirtazapine (Remeron) 15 mg PO HS [facility] PRN Reason: Protocol Stop: 04/26/17 20:59 Last Admin: 02/26/17 20:30 Dose: 15 mg Miscellaneous (Probiotic Screen) 1 ea MC PRN PRN PRN Reason: PROTOCOL Stop: 04/21/17 16:25 Morphine Sulfate (Morphine) 1 mg IVP Q3H PRN PRN Reason: Pain (Moderate) Stop: 04/20/17 01:59 Last Admin: 02/26/17 21:56 Dose: 1 mg Nitroglycerin (Nitrostat) 0.4 mg SL Q5MIN PRN PRN Reason: Chest Pain Stop: 04/20/17 12:01 Nystatin (Nystop) 100,000 units TP BID PRN PRN Reason: SKIN EXCORIATIONS Stop: 04/21/17 15:35 Last Admin: 02/21/17 11:46 Dose: 100,000 units Ondansetron HCl (Zofran) 4 mg IV Q6H PRN PRN Reason: Nausea Stop: 04/20/17 03:38 Spironolactone (Aldactone) 50 mg PO BID [facility] Stop: 04/27/17 08:59 Last Admin: 02/27/17 09:00 Dose: Not Given General: no acute distress, well developed, well nourished HEENT: atraumatic, normocephalic, PERRLA, EOMI, moist mucous membrane Neck: supple, no thyromegaly, no lymphadenopathy Cardiovascular: S1S2, regular Lungs: clear to percussion, rhonchi Abdomen: soft, no tender, no distended Extremities: no cyanosis, no clubbing, no edema Skin: intact Infectious Disease Assmt/Plan - Problem List Patient Problems: All Active Problems Acute kidney failure (Acute) 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 Sepsis. 2. Pneumonia. 3. UTI, Candiduria. 4. Renal failure. 5. Hypotension 6. VDRF. - Plan Plan: Will continue Zyvox IV, and diflucan. change zosyn to meropenem. Nutritional Asmnt/Malnutr-PDOC - Dietary Evaluation Malnutrition Findings (Please click <Entered> for more info): Nutritional Asmnt/Malnutrition Start: 02/21/17 18: 20 Text: Status: Complete Freq: Document 02/21/17 18:21 LCHENG (Rec: 02/21/17 18:32 [email or web address] [email or web address]) Nutritional Asmnt/Malnutrition Patient General Information Nutritional Screening High Risk Consult Diagnosis gastric outlet obstruction Pertinent Medical Hx/Surgical Hx HTN, OA, DM, GERD Subjective Information Pt seen sleeping at the time of visit, attempted x 2. Spoke with RN, pt consumed 50% of breakfast and only the soup of lunch today, not much appetite, no complain of N/V. Pt will be NPO from midnight for GI exam tommorrow. Current Diet Order/ Nutrition Support no added salt 4gm, CCHO, no eggs, banana and cereal in morning Pertinent Medications colace, lasix, novolog, levaquin, piperacillin Pertinent Labs 02/20 Na 137, K 4.5, Cl 104, BUN 55, Cr 1.6, Glucose 137, POC 126-199 since admit, Ca 8. 3 Nutritional Hx/Data Height 1.57 m Height (Calculated Centimeters) 157.5 Current Weight (lbs) 97.023 kg Weight (Calculated Kilograms) 97.0 Weight (Calculated Grams) 91787.4 [place] Body Weight 110 % [place] Body Weight 194 Body Mass Index (BMI) 39.1 Weight Status Obese GI Symptoms GI Symptoms None Last BM none Difficult in: None Skin Integrity/Comment: multiple maceration, abrasion to right/left medial thigh Current %PO Poor (25-49%) Estimated Nutritional Goals BEE in Kcals: Adj wt of IBW Calories/Kcals/Kg 27-32 Kcals Calculated Protein: Adj wt of IBW Protein g/k-1.2 Protein Calculated 62-74 Fluid: ml Nutritional Problem 1. Problem Problem inadequate PO intake Etiology poor appetite Signs/Symptoms: PO intake 25-50% Malnutrition Alert Protein-Calorie Malnutrition N/A Is there a minimum of two criteria No selected? Query Text:Check all the applicable criteria. A minimum of two criteria are recommended for diagnosis of either severe or non-severe malnutrition. Intervention/Recommendation Comments 1. Continue with current diet as ordered. 2. Monitor PO intake, GI symptons, wt, labs and skin integrity 3. F/U as high risk in 2-3 days, 02/23-02/24 Expected Outcomes/Goals Expected Outcomes/Goals 1. PO intake to meet at least 75% of nutritional needs. 2. Wt stability, skin to remain intact, labs to improve
[2017-02-27] MEDS ORDERED: Meropenem 1 GM in Sodium Chloride 0.9% 100 ML IV SCH (12:15)
[2017-02-27 12:31] LABS: EOSINOPHILE ABSOLUTE 0.1 Th/cmm (0.1-0.4); LYMPHOCYTE ABSOLUTE 0.4 Th/cmm (1.5-3.0); MEAN CELL VOLUME 86.4 fl (81-100); MEAN CORPUSCULAR HEMOGLOBIN 28.5 pg (27.0-31.0); MEAN PLATELET VOLUME 6.8 fl; MONOCYTE ABSOLUTE 0.6 Th/cmm (0.3-1.0); NEUTROPHILE ABSOLUTE 11.7 Th/cmm (1.8-8.0); RED BLOOD COUNT 2.52 Mil/cmm (3.80-5.20); RED CELL DISTRIBUTION WIDTH 12.6 % (11.5-20.0)
[2017-02-27 12:34] LABS: HEMATOCRIT 21.8 % (41.0-60); HEMOGLOBIN 7.2 gm/dL (12-16); PLATELET COUNT 146 Th/cmm (150-400); WHITE BLOOD COUNT 12.8 Th/cmm (4.8-10.8)
[2017-02-27 12:40] LABS: ANION GAP 14.6 (7.0-16.0); CALCIUM SERUM 6.5 mg/dL (8.6-10.3); CARBON DIOXIDE 19.3 mEq/L (21.0-31.0); CREATININE - SERUM 3.3 mg/dL (0.6-1.2); GFR AFRICAN-AMERICAN 17.8 ml/min (>90); GFR NON AFRICAN-AMERICAN 14.7 ml/min
[2017-02-27 12:43] LABS: POTASSIUM SERUM 2.9 mEq/L (3.5-5.1)
--- NOTE | 2017-02-27 12:52 | General Progress Note ---
Subjective - Review of Systems Events since last encounter: sob with hypoxia, A respiratory failure with acidosis. Objective - Results Result Diagrams: 02/27/17 12:15 02/27/17 12:15 Recent Labs: Laboratory Last Values WBC 12.8 Th/cmm (4.8-10.8) H 02/27/17 12:15 RBC 2.52 Mil/cmm (3.80-5.20) L 02/27/17 12:15 Hgb 7.2 gm/dL (12-16) L* 02/27/17 12:15 Hct 21.8 % (41.0-60) L D 02/27/17 12:15 MCV 86.4 fl (81-100) 02/27/17 12:15 MCH 28.5 pg (27.0-31.0) 02/27/17 12:15 MCHC Differential 33.0 pg (28.0-36.0) 02/27/17 12:15 RDW 12.6 % (11.5-20.0) 02/27/17 12:15 Plt Count 146 Th/cmm (150-400) L D 02/27/17 12:15 MPV 6.8 fl 02/27/17 12:15 Neutrophils % [employer] 02/25/17 04:50 Band Neutrophils % 5 % (0-10) 02/25/17 04:50 Lymphocytes % [employer] 02/25/17 04:50 Monocytes % [employer] 02/25/17 04:50 Eosinophils % [employer] 02/25/17 04:50 Basophils % [employer] 02/25/17 04:50 Neutrophils (Manual) 67 % (40-80) 02/25/17 04:50 Lymphocytes 13 % (20-50) L 02/25/17 04:50 Monocytes 6 % (2-10) 02/25/17 04:50 Eosinophils 9 % (0-5) H 02/25/17 04:50 Metamyelocytes 1 % (0-0) H 02/18/17 23:35 Hypochromia 1+ 02/18/17 23:35 Platelet Estimate ADEQUATE (NORMAL) 02/19/17 04:11 PT 11.2 SECONDS (9.5-11.5) 02/25/17 21:23 INR 1.08 (0.5-1.4) 02/25/17 21:23 PTT (Actin FS) 38.3 SECONDS (26.0-38.0) H 02/25/17 21:23 Specimen Source Arterial 02/27/17 09:35 Sample Site Right Radial 02/27/17 09:35 pH 7.18 (7.35-7.45) L* 02/27/17 09:35 pCO2 47.0 mmHg (35.0-45.0) H 02/27/17 09:35 pO2 424.0 mmHg (80.0-100.0) H 02/27/17 09:35 HCO3 16.7 mEq/L (20.0-26.0) L 02/27/17 09:35 Base Excess -10.7 mEq/L (-3.0-3.0) L 02/27/17 09:35 O2 Saturation 100.0 % (92.0-100.0) 02/27/17 09:35 Jorje Test Positive 02/27/17 09:35 Vent Rate 18 02/27/17 09:35 Inspired O2 100 02/27/17 09:35 Tidal Volume 550 02/27/17 09:35 PEEP 5 02/27/17 09:35 Pressure (ins/psv/peep) NA 02/27/17 09:35 Critical Value LZHANG 02/27/17 09:35 Sodium 114 mEq/L (136-145) L* 02/27/17 12:15 Potassium 2.9 mEq/L (3.5-5.1) L* 02/27/17 12:15 Chloride 83 mEq/L (98-107) L 02/27/17 12:15 Carbon Dioxide 19.3 mEq/L (21.0-31.0) L 02/27/17 12:15 Anion Gap 14.6 (7.0-16.0) 02/27/17 12:15 BUN 47 mg/dL (7-25) H 02/27/17 12:15 Creatinine 3.3 mg/dL (0.6-1.2) H 02/27/17 12:15 Est GFR ( Amer) 17.8 ml/min (>90) 02/27/17 12:15 Est GFR (Non-Af Amer) 14.7 ml/min 02/27/17 12:15 BUN/Creatinine Ratio 14.2 02/27/17 12:15 Glucose 443 mg/dL (70-105) H 02/27/17 12:15 POC Glucose 234 MG/DL (70 - 105) H 02/27/17 12:00 Hemoglobin A1c % 5.8 % (4.0-6.0) 02/22/17 10:38 Whole Bld Lactic Acid 2.07 mmol/L (0.60-1.99) H* 02/27/17 12:15 Calcium 6.5 mg/dL (8.6-10.3) L 02/27/17 12:15 Magnesium 1.9 mg/dL (1.9-2.7) 02/24/17 07:50 Total Bilirubin 0.3 mg/dL (0.3-1.0) 02/26/17 04:45 Direct Bilirubin 0.09 mg/dL (0.0-0.2) 02/18/17 23:35 AST 11 U/L (13-39) L 02/26/17 04:45 ALT 5 U/L (7-52) L 02/26/17 04:45 Alkaline Phosphatase 52 U/L (34-104) 02/26/17 04:45 B-Natriuretic Peptide 220.0 pg/mL (5.0-100.0) H 02/22/17 10:38 Total Protein 5.8 gm/dL (6.0-8.3) L 02/26/17 04:45 Albumin 3.0 gm/dL (3.7-5.3) L 02/26/17 04:45 Globulin 2.8 gm/dL 02/26/17 04:45 Albumin/Globulin Ratio 1.1 (1.0-1.8) 02/26/17 04:45 Amylase 36 U/L (29-103) 02/18/17 23:35 Lipase 10 U/L (11-82) L 02/18/17 23:35 Free T4 1.04 ng/dL (0.82-1.77) 02/25/17 04:50 Free T3 0.7 pg/mL (2.0-4.4) L 02/25/17 04:50 TSH 0.84 uIU/ml (0.34-5.60) 02/25/17 04:50 Urine Source [place] 02/20/17 16:15 Urine Color YELLOW 02/20/17 16:15 Urine Clarity CLOUDY (CLEAR) H 02/20/17 16:15 Urine pH 5.5 (4.6 - 8.0) 02/20/17 16:15 Ur Specific [place] 1.020 (1.005-1.030) 02/20/17 16:15 Urine Protein NEGATIVE mg/dL (NEGATIVE) 02/20/17 16:15 Urine Glucose (UA) NEGATIVE mg/dL (NEGATIVE) 02/20/17 16:15 Urine Ketones NEGATIVE mg/dL (NEGATIVE) 02/20/17 16:15 Urine Blood SMALL (NEGATIVE) H 02/20/17 16:15 Urine Nitrate NEGATIVE (NEGATIVE) 02/20/17 16:15 Urine Bilirubin NEGATIVE (NEGATIVE) 02/20/17 16:15 Urine Urobilinogen 0.2 E.U./dL (0.2 - 1.0) 02/20/17 16:15 Ur Leukocyte Esterase LARGE (NEGATIVE) H 02/20/17 16:15 Urine RBC 2-5 /hpf (0-5) 02/20/17 16:15 Urine WBC 25-50 /hpf (0-5) H 02/20/17 16:15 Ur Epithelial Cells FEW /lpf (FEW) 02/20/17 16:15 Urine Bacteria MODERATE /hpf (NONE SEEN) H 02/20/17 16:15 Urine Yeast MODERATE /hpf (NONE SEEN) H 02/20/17 16:15 Blood Type A POSITIVE 02/19/17 01:55 Antibody Screen NEGATIVE 02/19/17 01:55 - Physical Exam Vitals and I&O: Vital Signs Temp 97.2 F 02/27/17 04:00 Pulse 83 02/27/17 11:59 Resp 18 02/27/17 07:33 BP 88/50 02/27/17 09:39 Pulse Ox 100 02/27/17 11:59 Intake & Output 02/26/17 02/27/17 02/27/17 18:59 06:59 18:59 Intake Total 958 1995.426 72.443 Output Total 150 Balance 958 1845.426 72.443 Weight (lbs) 105.687 kg Intake: Intake, IV Amount 958 1795.426 72.443 Levofloxacin 250mg/50mL 50 250 mg In 50 ml @ 50 mls/ hr IV Q24HR [facility] Rx#: [id number] Linezolid 600mg/300mL 600 300 300 mg In 300 ml @ 300 mls/ hr IV Q12HR [facility] Rx#: [id number] Norepinephrine 4 mg In 508 1245.426 Dextrose 5% 250 ml @ 5 MCG/MIN 19.05 mls/hr IV TITR PRN Rx#:[id number] Norepinephrine 8 mg In 11.61 Sodium Chloride 0.9% 250 ml @ Per Protocol IV TITR [facility] Rx#:[id number] Pantoprazole 80 mg In 100 100 60.833 Sodium Chloride 0.9% 100 ml @ 10 mls/hr IV Q10H [facility] Rx#:[id number] Piperacillin Sodium/ 50 Tazobact 2.25 gm In Sodium Chloride 0.9% 50 ml @ 100 mls/hr IV Q8HR [facility] Rx#:[id number] Piperacillin Sodium/ 50 50 Tazobact 3.375 gm In Sodium Chloride 0.9% 50 ml @ 100 mls/hr IV Q8HR [facility] Rx#:[id number] Oral 200 Output: Urine 150 Other: # Bowel Movements 0 Stool Characteristics Soft Black Green Active Medications: Current Medications Acetaminophen (Tylenol) 650 mg PO Q4HR PRN PRN Reason: Pain (Mild) Stop: 04/20/17 12:01 Last Admin: 02/21/17 09:54 Dose: 650 mg Acetaminophen/Hydrocodone Bitart ([place] 5mg/325mg) 1 tab PO Q6H PRN PRN Reason: PAIN Stop: 04/20/17 13:24 Albuterol/Ipratropium (Duoneb Neb) 3 ml HHN Q4HRT PRN PRN Reason: Wheezing Stop: 04/27/17 19:59 Last Admin: 02/27/17 00:41 Dose: 3 ml Albuterol/Ipratropium (Duoneb Neb) 3 ml HHN [id number] [facility] Stop: 04/27/17 19:59 Last Admin: 02/27/17 07:25 Dose: 3 ml Aspirin (Ecotrin) 81 mg PO DAILY [facility] Stop: 04/21/17 08:59 Last Admin: 02/27/17 09:39 Dose: Not Given Chlorhexidine Gluconate (Peridex) 15 ml MM 0800,1999 [facility] Stop: 04/28/17 19:59 Diltiazem HCl (Cardizem) 5 mg IVP Q4H PRN PRN Reason: HR > 120 Stop: 04/27/17 19:59 Last Admin: 02/27/17 04:59 Dose: 5 mg Docusate Sodium (Colace) 100 mg PO BID [facility] Stop: 04/20/17 16:59 Last Admin: 02/27/17 09:39 Dose: Not Given Fluconazole (Diflucan) 100 mg PO DAILY [facility] Stop: 03/08/17 08:59 Last Admin: 02/27/17 09:39 Dose: Not Given Furosemide (Lasix) 40 mg PO DAILY [facility] Stop: 04/21/17 08:59 Last Admin: 02/27/17 09:39 Dose: Not Given Pantoprazole Sodium 80 mg/ (Sodium Chloride) 100 mls @ 10 mls/hr IV Q10H [facility] Stop: 04/20/17 08:59 Last Admin: 02/27/17 09:38 Dose: 10 mls/hr Linezolid (Zyvox) 600 mg in 300 mls @ 300 mls/hr IV Q12HR [facility] Stop: 04/22/17 20:59 Last Admin: 02/27/17 09:25 Dose: 300 mls/hr Levofloxacin (Levaquin Pb) 250 mg in 50 mls @ 50 mls/hr IV Q24HR [facility] Stop: 04/23/17 20:59 Last Infusion: 02/26/17 21:45 Dose: Infused Sodium Chloride (Nacl 0.9%) 1,000 mls @ 0 mls/hr IV .Q0M [facility] PRN Reason: KVO Stop: 04/25/17 19:38 Phenylephrine HCl 10 mg/ (Sodium Chloride) 250 mls @ 0 mls/hr IV TITR [facility]; Per Protocol PRN Reason: Protocol Stop: 04/28/17 07:59 Norepinephrine Bitartrate 8 mg (/ Sodium Chloride) 258 mls @ 0 mls/hr IV TITR [facility]; Per Protocol PRN Reason: Protocol Stop: 04/28/17 09:59 Last Titration: 02/27/17 10:50 Dose: 24 mcg/min, 46.44 mls/hr Meropenem 1 gm/ Dextrose 100 mls @ 100 mls/hr IV Q12H [facility] Stop: 04/28/17 12:29 Insulin Aspart (Novolog Insulin Sliding Scale) 0 units SUBQ ACHS [facility] PRN Reason: Protocol Stop: 04/20/17 16:29 Last Admin: 02/27/17 12:07 Dose: Not Given Mirtazapine (Remeron) 15 mg PO HS [facility] PRN Reason: Protocol Stop: 04/26/17 20:59 Last Admin: 02/26/17 20:30 Dose: 15 mg Miscellaneous (Probiotic Screen) 1 ea MC PRN PRN PRN Reason: PROTOCOL Stop: 04/21/17 16:25 Morphine Sulfate (Morphine) 1 mg IVP Q3H PRN PRN Reason: Pain (Moderate) Stop: 04/20/17 01:59 Last Admin: 02/26/17 21:56 Dose: 1 mg Nitroglycerin (Nitrostat) 0.4 mg SL Q5MIN PRN PRN Reason: Chest Pain Stop: 04/20/17 12:01 Nystatin (Nystop) 100,000 units TP BID PRN PRN Reason: SKIN EXCORIATIONS Stop: 04/21/17 15:35 Last Admin: 02/21/17 11:46 Dose: 100,000 units Ondansetron HCl (Zofran) 4 mg IV Q6H PRN PRN Reason: Nausea Stop: 04/20/17 03:38 Spironolactone (Aldactone) 50 mg PO BID [facility] Stop: 04/27/17 08:59 Last Admin: 02/27/17 09:00 Dose: Not Given General: No acute distress, no Cooperative HEENT: Atraumatic Neck: Supple, JVD, Thyromegaly Assessment/Plan - Problem List Patient Problems: All Active Problems Acute kidney failure (Acute) Atherosclerotic heart disease of picayune coronary artery without angina pectoris (Acute) I25.10 Azotemia (Acute) R79.89 Bradycardia (Acute) R00.1 COPD (chronic obstructive pulmonary disease) (Acute) Cardiomegaly (Acute) I51.7 Chest pain (Acute) R07.9 Decubitus ulcer of buttock, 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 Nutritional Asmnt/Malnutr-PDOC - Dietary Evaluation Malnutrition Findings (Please click <Entered> for more info): Nutritional Asmnt/Malnutrition Start: 02/21/17 18: 20 Text: Status: Complete Freq: Document 02/21/17 18:21 LCELLEN (Rec: 02/21/17 18:32 LCELLEN ALEXANDER-[email or web address]) Nutritional Asmnt/Malnutrition Patient General Information Nutritional Screening High Risk Consult Diagnosis gastric outlet obstruction Pertinent Medical Hx/Surgical Hx HTN, OA, DM, GERD Subjective Information Pt seen sleeping at the time of visit, attempted x 2. Spoke with RN, pt consumed 50% of breakfast and only the soup of lunch today, not much appetite, no complain of N/V. Pt will be NPO from midnight for GI exam tommorrow. Current Diet Order/ Nutrition Support no added salt 4gm, CCHO, no eggs, banana and cereal in morning Pertinent Medications colace, lasix, novolog, levaquin, piperacillin Pertinent Labs 02/20 Na 137, K 4.5, Cl 104, BUN 55, Cr 1.6, Glucose 137, POC 126-199 since admit, Ca 8. 3 Nutritional Hx/Data Height 1.57 m Height (Calculated Centimeters) 157.5 Current Weight (lbs) 97.023 kg Weight (Calculated Kilograms) 97.0 Weight (Calculated Grams) 72358.4 [place] Body Weight 110 % [place] Body Weight 194 Body Mass Index (BMI) 39.1 Weight Status Obese GI Symptoms GI Symptoms None Last BM none Difficult in: None Skin Integrity/Comment: multiple maceration, abrasion to right/left medial thigh Current %PO Poor (25-49%) Estimated Nutritional Goals BEE in Kcals: Adj wt of IBW Calories/Kcals/Kg 27-32 Kcals Calculated Protein: Adj wt of IBW Protein g/k-1.2 Protein Calculated 62-74 Fluid: ml Nutritional Problem 1. Problem Problem inadequate PO intake Etiology poor appetite Signs/Symptoms: PO intake 25-50% Malnutrition Alert Protein-Calorie Malnutrition N/A Is there a minimum of two criteria No selected? Query Text:Check all the applicable criteria. A minimum of two criteria are recommended for diagnosis of either severe or non-severe malnutrition. Intervention/Recommendation Comments 1. Continue with current diet as ordered. 2. Monitor PO intake, GI symptons, wt, labs and skin integrity 3. F/U as high risk in 2-3 days, 02/23-02/24 Expected Outcomes/Goals Expected Outcomes/Goals 1. PO intake to meet at least 75% of nutritional needs. 2. Wt stability, skin to remain intact, labs to improve
[2017-02-27] MEDS ORDERED: Sodium Chloride 0.9% 500 ML IV ONE (13:14)
[2017-02-27] MEDS ORDERED: D5-0.45NS 1,000 ML IV SCH (13:15)
[2017-02-27] MEDS: Morphine Sulfate 2 mg/mL 1mL Syr IVP PRN ×2 (14:09→20:11)
[2017-02-27 15:52] LABS: URINE MICROSCOPIC INDICATED? YES; URINE SOURCE FOLEY PORT
[2017-02-27 15:55] LABS: URINE BILIRUBIN NEGATIVE (NEGATIVE); URINE BLOOD LARGE (NEGATIVE); URINE GLUCOSE (UA) NEGATIVE (NEGATIVE); URINE KETONE NEGATIVE (NEGATIVE); URINE LEUKOCYTE ESTERASE LARGE (NEGATIVE); URINE NITRATE NEGATIVE (NEGATIVE); URINE PH 5.5 (4.6 - 8.0); URINE PROTEIN TRACE mg/dL (NEGATIVE); URINE UROBILINOGEN 0.2 E.U./dL (0.2 - 1.0)
[2017-02-27 16:02] LABS: URINE CLARITY CLOUDY (CLEAR); URINE COLOR YELLOW
[2017-02-27 16:06] LABS: URINE BACTERIA MODERATE /hpf (NONE SEEN); URINE EPITHELIAL CELLS MODERATE /lpf (FEW); URINE WBC >100 /hpf (0-5)
[2017-02-27] MEDS: D5-0.45NS 1,000 ML IV SCH (16:10)
[2017-02-27] MEDS ORDERED: Sodium Chloride 3% 200 ML IV ONE (16:11)
[2017-02-27] MEDS ORDERED: KCL 20mEq/100mL Premix 20 MEQ/100 ML PIGGYBACK IV SCH (16:13)
[2017-02-27] MEDS: Dextrose 10% 1,000 ML IV SCH (17:00)
--- NOTE | 2017-02-27 17:17 | Progress Notes ---
DATE: 02/26/2017 SUBJECTIVE: The patient was seen in her room, lying in the bed. The patient appears to be comfortable, in no acute distress. Denies any pain or discomfort at this time. OBJECTIVE: VITAL SIGNS: Temperature 98.3, heart rate of 78, respirations 19, 97% on 3 liters via nasal cannula, blood pressure 104/35. HEAD: Atraumatic and normocephalic. EYES: Bilateral conjunctivae are clear. Bilateral pupils equally round and reactive. NECK: Supple. No JVD. CARDIOVASCULAR: S1 and S2 without murmur. Sinus rhythm on the monitor. PULMONARY: Clear to auscultation. GASTROINTESTINAL: Soft and nontender without guarding. Positive bowel sounds. MUSCULOSKELETAL: No clubbing, no cyanosis noted. Positive bilateral lower extremity edema. ASSESSMENT: 1. Hypotension. 2. Upper gastrointestinal bleed. 3. Diabetes mellitus. 4. Coronary artery disease. 5. Chronic obstructive pulmonary disease. 6. Stage III sacral decubitus ulcer. 7. Pacemaker. 8. Rheumatoid arthritis. PLAN: We will keep the patient inpatient in ICU. The patient is still on ____ norepinephrine currently at 14 mcg, continue Protonix drip. The patient had 2 episodes of SVT as high as 120s. We will do a stat EKG. Treatment plans were discussed with the patient's nurse. Treatment plans were discussed with Dr. Yates. JOB# [id number]
[2017-02-27 18:20] LABS: ANION GAP 16.3 (7.0-16.0); CALCIUM SERUM 7.2 mg/dL (8.6-10.3); CARBON DIOXIDE 16.8 mEq/L (21.0-31.0); CREATININE - SERUM 3.4 mg/dL (0.6-1.2); GFR AFRICAN-AMERICAN 17.2 ml/min (>90); GFR NON AFRICAN-AMERICAN 14.2 ml/min; POTASSIUM SERUM 3.1 mEq/L (3.5-5.1)
[2017-02-27] MEDS: Chlorhexidine Gluconate 0.12% 15mL Mouthwash MM SCH (20:12)
[2017-02-27] MEDS: Levofloxacin 250 mg/50 mL Premix Bag IV SCH (20:56)
[2017-02-28] MEDS: Albuterol/Ipratropium Neb 3 ML AERS HHN SCH ×2 (01:35→19:33)
[2017-02-28] MEDS ORDERED: Albuterol/Ipratropium Neb 3 ML AERS HHN ONE (03:09)
[2017-02-28] MEDS: Albuterol/Ipratropium Neb 3 ML AERS HHN PRN (03:18)
[2017-02-28] MEDS: Pantoprazole 80 MG in Sodium Chloride 0.9% 100 ML IV SCH ×3 (03:19→22:49)
--- NOTE | 2017-02-28 04:16 | Consultation ---
DATE OF CONSULTATION: 02/27/2017 PATIENT OF: Dr. Yates. Thank you very much Dr. Yates for this consultation. HISTORY OF PRESENT ILLNESS: The patient is a 71-year-old female who went into respiratory distress and CO2 retention, required to be intubated, placed on the ventilator earlier. The patient does have underlying history of COPD, was admitted for possible bowel obstruction. OTHER PAST MEDICAL HISTORY: Significant for obesity, COPD, hypertension, diabetes mellitus, reflux disease, and coronary artery disease. SOCIAL HISTORY: Not available. REVIEW OF SYSTEMS: Unable to obtain because of the patient's condition. PHYSICAL EXAMINATION: GENERAL: The patient is intubated and sedated. VITAL SIGNS: Temperature is 97.2, pulse is 70, respiration 18, blood pressure ____ saturation 100%. HEENT: Atraumatic and normocephalic. Pupils react to light and accommodation. Ears, nose, and throat normal. NECK: Supple. No JVD. CHEST: There is rhonchi bilaterally. HEART: Regular rate and rhythm. ABDOMEN: Soft. EXTREMITIES: No edema. LABORATORY DATA AND DIAGNOSTIC STUDIES: WBC is 12.8, hemoglobin 7.2, hematocrit 21.8, and platelets is 146. ABG shows pH 7.18, pCO2 47, pO2 424, and bicarbonate 16. Sodium is 114, potassium 2.9, BUN is 47, and creatinine 3.3. UA showed some RBCs ____ WBCs as well. Chest x-ray showed ET tube in place, cardiomegaly, and pacemaker in place. IMPRESSION: This is a 71-year-old female with underlying cardiac and pulmonary problems, specifically chronic obstructive pulmonary disease, cardiac arrhythmias, and coronary artery disease with respiratory failure, came with GI issues, anemia, and renal failure. PLAN: 1. Continue ventilator support. 2. Nebulizer treatment. 3. Continue gastrointestinal workup. 4. Renal followup, possible dialysis at one point. Thank you very much for this consultation. I will follow the patient with you. JOB# [id number]
[2017-02-28] MEDS: INSULIN ASPART SLIDING SCALE 100 UNITS/ML UNIT SUBQ SCH ×4 (06:41→21:20)
[2017-02-28 06:55] LABS: MEAN CELL VOLUME 86.4 fl (81-100); MEAN CORPUSCULAR HEMOGLOBIN 28.9 pg (27.0-31.0); MEAN CORPUSCULAR HGB CONC 33.4 pg (28.0-36.0); MEAN PLATELET VOLUME 7.6 fl; PLATELET COUNT 130 Th/cmm (150-400); RED BLOOD COUNT 3.62 Mil/cmm (3.80-5.20); RED CELL DISTRIBUTION WIDTH 12.1 % (11.5-20.0)
[2017-02-28 06:58] LABS: HEMATOCRIT 31.3 % (41.0-60); HEMOGLOBIN 10.5 gm/dL (12-16); WHITE BLOOD COUNT 19.8 Th/cmm (4.8-10.8)
[2017-02-28] MEDS ORDERED: Ipratropium Neb 0.5 mg/2.5 mL UD HHN SCH (07:00)
[2017-02-28 07:17] LABS: ALBUMIN 2.2 gm/dL (3.7-5.3); BILIRUBIN,TOTAL 0.5 mg/dL (0.3-1.0); CALCIUM SERUM 6.9 mg/dL (8.6-10.3); CARBON DIOXIDE 17.9 mEq/L (21.0-31.0); CREATININE - SERUM 3.1 mg/dL (0.6-1.2); GFR AFRICAN-AMERICAN 19.2 ml/min (>90); GFR NON AFRICAN-AMERICAN 15.8 ml/min; MAGNESIUM 1.4 mg/dL (1.9-2.7); PHOSPHOROUS 2.1 mg/dL (2.5-5.0); TOTAL CELLS COUNTED 100; TOTAL PROTEIN,SERUM 4.4 gm/dL (6.0-8.3)
[2017-02-28 07:18] LABS: BAND NEUTROPHILE 8 % (0-10); EOSINOPHIL 1 % (0-5); LYMPHOCYTE 8 % (20-50); MONOCYTE 2 % (2-10); NEUTROPHILS 81 % (40-80)
[2017-02-28 07:20] LABS: POTASSIUM SERUM 2.9 mEq/L (3.5-5.1)
[2017-02-28] MEDS: Ipratropium Neb 0.5 mg/2.5 mL UD HHN SCH ×2 (07:52→12:29)
[2017-02-28] MEDS: Albuterol Nebulizer 2.5mg/3mL HHN SCH ×2 (07:53→12:29)
[2017-02-28] MEDS: Chlorhexidine Gluconate 0.12% 15mL Mouthwash MM SCH ×2 (08:20→19:54)
[2017-02-28] MEDS ORDERED: KCL 20mEq/100mL Premix 20 MEQ/100 ML PIGGYBACK IV SCH (08:45)
--- NOTE | 2017-02-28 09:07 | Diagnostic Imaging Report ---
Exam: Portable chest x-ray diagnosis: Shortness of breath. Findings: Portable examination of chest at 0800 hours reviewed the study compared to exam of the earlier. The study demonstrates a endotracheal tube unchanged position. Mediastinal structures midline the heart is prominent. There is evidence of congestive heart failure with superimposed left basilar infiltrate and superimposed bilateral pleural effusions. The NG tube is passing the stomach. Bony thorax remarkable for severe degenerative osteopenia. IMPRESSION: 1. Cardiomegaly superimposed congestive heart failure. 2. left basilar infiltrate superimposed bilateral effusions. 3. COPD changes are noted follow-up exam is recommended.
[2017-02-28] MEDS: Linezolid 600mg/300mL 600 MG/300 ML BAG IV SCH ×2 (09:11→21:23)
[2017-02-28] MEDS: Albumin 25% 25gm/100mL 25 GM/100 ML BTL IV SCH ×2 (09:12→17:45)
[2017-02-28] MEDS: Multivitamin w/ Minerals Tab PO SCH (09:17)
[2017-02-28 10:04] LABS: ALLEN TEST Y
[2017-02-28] MEDS ORDERED: MAGNESIUM SULFATE IV ONE (13:00)
[2017-02-28] MEDS ORDERED: SODIUM CHLORIDE 0.9% IV ONE (13:00)
[2017-02-28] MEDS ORDERED: Sodium Chloride 3% 200 ML IV ONE (13:00)
--- NOTE | 2017-02-28 13:34 | General Progress Note ---
Subjective - Review of Systems Events since last encounter: patient on vent no fever Objective - Results Result Diagrams: 02/28/17 06:20 02/28/17 06:20 Recent Labs: Laboratory Last Values WBC 19.8 Th/cmm (4.8-10.8) H D 02/28/17 06:20 RBC 3.62 Mil/cmm (3.80-5.20) L 02/28/17 06:20 Hgb 10.5 gm/dL (12-16) L D 02/28/17 06:20 Hct 31.3 % (41.0-60) L D 02/28/17 06:20 MCV 86.4 fl (81-100) 02/28/17 06:20 MCH 28.9 pg (27.0-31.0) 02/28/17 06:20 MCHC Differential 33.4 pg (28.0-36.0) 02/28/17 06:20 RDW 12.1 % (11.5-20.0) 02/28/17 06:20 Plt Count 130 Th/cmm (150-400) L 02/28/17 06:20 MPV 7.6 fl 02/28/17 06:20 Neutrophils % [employer]E CLE[employer]ER 02/25/17 04:50 Band Neutrophils % 8 % (0-10) 02/28/17 06:20 Lymphocytes % [employer]E CLE[employer]ER 02/25/17 04:50 Monocytes % SU[employer]E CLE[employer]ER 02/25/17 04:50 Eosinophils % SU[employer]E CLE[employer]ER 02/25/17 04:50 Basophils % SU[employer]E CLE[employer]ER 02/25/17 04:50 Neutrophils (Manual) 81 % (40-80) H 02/28/17 06:20 Lymphocytes 8 % (20-50) L 02/28/17 06:20 Monocytes 2 % (2-10) 02/28/17 06:20 Eosinophils 1 % (0-5) 02/28/17 06:20 Metamyelocytes 1 % (0-0) H 02/18/17 23:35 Hypochromia 1+ 02/18/17 23:35 Platelet Estimate ADEQUATE (NORMAL) 02/19/17 04:11 PT 11.2 SECONDS (9.5-11.5) 02/25/17 21:23 INR 1.08 (0.5-1.4) 02/25/17 21:23 PTT (Actin FS) 38.3 SECONDS (26.0-38.0) H 02/25/17 21:23 Specimen Source ARTERIAL 02/28/17 09:33 Sample Site Left Radial 02/28/17 09:33 pH 7.50 (7.35-7.45) H 02/28/17 09:33 pCO2 24.0 mmHg (35.0-45.0) L* 02/28/17 09:33 pO2 169.0 mmHg (80.0-100.0) H 02/28/17 09:33 HCO3 22.7 mEq/L (20.0-26.0) 02/28/17 09:33 Base Excess 2.9 mEq/L (-3.0-3.0) 02/28/17 09:33 O2 Saturation 100.0 % (92.0-100.0) 02/28/17 09:33 Jorje Test Y 02/28/17 09:33 Vent Rate 12 02/28/17 09:33 Inspired O2 50 02/28/17 09:33 Tidal Volume 550 02/28/17 09:33 PEEP 5 02/28/17 09:33 Pressure (ins/psv/peep) N/A 02/28/17 09:33 Critical Value [place] 02/28/17 09:33 Sodium 119 mEq/L (136-145) L* 02/28/17 06:20 Potassium 2.9 mEq/L (3.5-5.1) L* 02/28/17 06:20 Chloride 90 mEq/L (98-107) L 02/28/17 06:20 Carbon Dioxide 17.9 mEq/L (21.0-31.0) L 02/28/17 06:20 Anion Gap 14.0 (7.0-16.0) 02/28/17 06:20 BUN 45 mg/dL (7-25) H 02/28/17 06:20 Creatinine 3.1 mg/dL (0.6-1.2) H 02/28/17 06:20 Est GFR ( Amer) 19.2 ml/min (>90) 02/28/17 06:20 Est GFR (Non-Af Amer) 15.8 ml/min 02/28/17 06:20 BUN/Creatinine Ratio 14.5 02/28/17 06:20 Glucose 198 mg/dL (70-105) H 02/28/17 06:20 POC Glucose 209 MG/DL (70 - 105) H 02/28/17 12:33 Hemoglobin A1c % 5.8 % (4.0-6.0) 02/22/17 10:38 Whole Bld Lactic Acid 2.40 mmol/L (0.60-1.99) H* 02/27/17 15:04 Calcium 6.9 mg/dL (8.6-10.3) L 02/28/17 06:20 Phosphorus 2.1 mg/dL (2.5-5.0) L 02/28/17 06:20 Magnesium 1.4 mg/dL (1.9-2.7) L 02/28/17 06:20 Total Bilirubin 0.5 mg/dL (0.3-1.0) 02/28/17 06:20 Direct Bilirubin 0.09 mg/dL (0.0-0.2) 02/18/17 23:35 AST 30 U/L (13-39) 02/28/17 06:20 ALT 7 U/L (7-52) 02/28/17 06:20 Alkaline Phosphatase 54 U/L (34-104) 02/28/17 06:20 B-Natriuretic Peptide 220.0 pg/mL (5.0-100.0) H 02/22/17 10:38 Total Protein 4.4 gm/dL (6.0-8.3) L 02/28/17 06:20 Albumin 2.2 gm/dL (3.7-5.3) L 02/28/17 06:20 Globulin 2.2 gm/dL 02/28/17 06:20 Albumin/Globulin Ratio 1.0 (1.0-1.8) 02/28/17 06:20 Amylase 36 U/L (29-103) 02/18/17 23:35 Lipase 10 U/L (11-82) L 02/18/17 23:35 Free T4 1.04 ng/dL (0.82-1.77) 02/25/17 04:50 Free T3 0.7 pg/mL (2.0-4.4) L 02/25/17 04:50 TSH 0.84 uIU/ml (0.34-5.60) 02/25/17 04:50 Urine Source [place] 02/27/17 15:00 Urine Color YELLOW 02/27/17 15:00 Urine Clarity CLOUDY (CLEAR) H 02/27/17 15:00 Urine pH 5.5 (4.6 - 8.0) 02/27/17 15:00 Ur Specific [place] <= 1.005 (1.005-1.030) 02/27/17 15:00 Urine Protein TRACE mg/dL (NEGATIVE) 02/27/17 15:00 Urine Glucose (UA) NEGATIVE mg/dL (NEGATIVE) 02/27/17 15:00 Urine Ketones NEGATIVE mg/dL (NEGATIVE) 02/27/17 15:00 Urine Blood LARGE (NEGATIVE) H 02/27/17 15:00 Urine Nitrate NEGATIVE (NEGATIVE) 02/27/17 15:00 Urine Bilirubin NEGATIVE (NEGATIVE) 02/27/17 15:00 Urine Urobilinogen 0.2 E.U./dL (0.2 - 1.0) 02/27/17 15:00 Ur Leukocyte Esterase LARGE (NEGATIVE) H 02/27/17 15:00 Urine RBC 10-25 /hpf (0-5) H 02/27/17 15:00 Urine WBC >100 /hpf (0-5) H 02/27/17 15:00 Ur Epithelial Cells MODERATE /lpf (FEW) 02/27/17 15:00 Urine Bacteria MODERATE /hpf (NONE SEEN) H 02/27/17 15:00 Urine Yeast MODERATE /hpf (NONE SEEN) H 02/20/17 16:15 Blood Type A POSITIVE 02/27/17 15:04 Antibody Screen NEGATIVE 02/27/17 15:04 Crossmatch See Detail 02/27/17 15:04 - Physical Exam Vitals and I&O: Vital Signs Temp 97.2 F 02/28/17 11:00 Pulse 78 02/28/17 11:45 Resp 12 02/28/17 12:09 BP 96/53 02/28/17 11:45 Pulse Ox 100 02/28/17 12:00 Intake & Output 02/27/17 02/28/17 02/28/17 18:59 06:59 18:59 Intake Total 808.004 4426.022 370 Output Total 450 1400 Balance 341.346 727.022 370 Weight (lbs) 105.375 kg 104.837 kg Intake: Intake, IV Amount 200.003 5833.022 370 Albumin 25% 25gm/100mL 25 0 gm In 100 ml @ 50 mls/hr IV Q8H [facility] Rx#:[id number] D5-0.45NS 1,000 ml @ 10 138.333 mls/hr IV .Q24H [facility] Rx#: [id number] Dextrose 10% 1,000 ml @ 390 30 mls/hr IV .Q24H [facility] Rx #:[id number] Levofloxacin 250mg/50mL 50 250 mg In 50 ml @ 50 mls/ hr IV Q24HR [facility] Rx#: [id number] Linezolid 600mg/300mL 600 300 300 300 mg In 300 ml @ 300 mls/ hr IV Q12HR [facility] Rx#: [id number] Meropenem 1 gm In 100 100 Dextrose 5% 100 ml @ 100 mls/hr IV Q12H [facility] Rx#: [id number] Norepinephrine 8 mg In 249.680 55.856 Sodium Chloride 0.9% 250 ml @ Per Protocol IV TITR [facility] Rx#:[id number] Pantoprazole 80 mg In 141.666 122.833 70 Sodium Chloride 0.9% 100 ml @ 10 mls/hr IV Q10H [facility] Rx#:[id number] Potassium Chloride 40 meq 270 In Sodium Chloride 0.9% 250 ml @ 50 mls/hr IV . Q5H24M [facility] Rx#:[id number] Sodium Chloride 3% 200 ml 200 @ 35 mls/hr IV X1 [facility] Rx #:[id number] Oral 0 0 Blood Product 500 Output: Urine 450 1400 Other: # Bowel Movements 0 1 Stool Characteristics Liquid Green Active Medications: Current Medications Acetaminophen (Tylenol) 650 mg PO Q4HR PRN PRN Reason: Pain (Mild) Stop: 04/20/17 12:01 Last Admin: 02/21/17 09:54 Dose: 650 mg Acetaminophen/Hydrocodone Bitart ([place] 5mg/325mg) 1 tab PO Q6H PRN PRN Reason: PAIN Stop: 04/20/17 13:24 Albuterol Sulfate (Albuterol 2.5mg/3ml Neb Ud) 2.5 mg HHN [id number] [facility] Stop: 03/02/17 06:59 Last Admin: 02/28/17 12:29 Dose: 2.5 mg Albuterol/Ipratropium (Duoneb Neb) 3 ml HHN Q4HRT PRN PRN Reason: Wheezing Stop: 04/27/17 19:59 Last Admin: 02/28/17 03:18 Dose: 3 ml Albuterol/Ipratropium (Duoneb Neb) 3 ml HHN [id number] [facility] Stop: 04/27/17 19:59 Last Admin: 02/27/17 19:45 Dose: 3 ml Aspirin (Ecotrin) 81 mg PO DAILY [facility] Stop: 04/21/17 08:59 Last Admin: 02/28/17 09:20 Dose: 81 mg Chlorhexidine Gluconate (Peridex) 15 ml MM 0800,2000 [facility] Stop: 04/28/17 19:59 Last Admin: 02/28/17 08:20 Dose: 15 ml Diltiazem HCl (Cardizem) 5 mg IVP Q4H PRN PRN Reason: HR > 120 Stop: 04/27/17 19:59 Last Admin: 02/27/17 04:59 Dose: 5 mg Docusate Sodium (Colace) 100 mg PO BID [facility] Stop: 04/20/17 16:59 Last Admin: 02/28/17 09:20 Dose: 100 mg Fluconazole (Diflucan) 100 mg PO DAILY [facility] Stop: 03/08/17 08:59 Last Admin: 02/28/17 09:18 Dose: 100 mg Furosemide (Lasix) 40 mg PO DAILY [facility] Stop: 04/21/17 08:59 Last Admin: 02/28/17 09:18 Dose: 40 mg Pantoprazole Sodium 80 mg/ (Sodium Chloride) 100 mls @ 10 mls/hr IV Q10H [facility] Stop: 04/20/17 08:59 Last Admin: 02/28/17 13:05 Dose: 10 mls/hr Linezolid (Zyvox) 600 mg in 300 mls @ 300 mls/hr IV Q12HR [facility] Stop: 04/22/17 20:59 Last Infusion: 02/28/17 10:15 Dose: Infused Levofloxacin (Levaquin Pb) 250 mg in 50 mls @ 50 mls/hr IV Q24HR [facility] Stop: 04/23/17 20:59 Last Infusion: 02/27/17 21:30 Dose: Infused Phenylephrine HCl 10 mg/ (Sodium Chloride) 250 mls @ 0 mls/hr IV TITR [facility]; Per Protocol PRN Reason: Protocol Stop: 04/28/17 07:59 Norepinephrine Bitartrate 8 mg (/ Sodium Chloride) 258 mls @ 0 mls/hr IV TITR [facility]; Per Protocol PRN Reason: Protocol Stop: 04/28/17 09:59 Last Titration: 02/28/17 06:00 Dose: 2 mcg/min, 3.87 mls/hr Meropenem 1 gm/ Dextrose 100 mls @ 100 mls/hr IV Q12H [facility] Stop: 04/28/17 12:29 Last Admin: 02/28/17 12:40 Dose: 100 mls/hr Dextrose/Sodium Chloride (D5-0.45ns) 1,000 mls @ 10 mls/hr IV .Q24H [facility] Stop: 04/28/17 16:09 Last Infusion: 02/28/17 06:00 Dose: 10 mls/hr Dextrose (Dextrose 10%) 1,000 mls @ 30 mls/hr IV .Q24H [facility] Stop: 04/28/17 16:14 Last Infusion: 02/28/17 06:00 Dose: 30 mls/hr Albumin Human (Albuminar 25%) 25 gm in 100 mls @ 50 mls/hr IV Q8H [facility] Stop: 03/01/17 02:59 Last Infusion: 02/28/17 11:15 Dose: Infused Sodium Chloride (Hypertonic 3%) 200 mls @ 35 mls/hr IV ONCE ONE Stop: 02/28/17 18:42 Last Admin: 02/28/17 13:03 Dose: 35 mls/hr Magnesium Sulfate 4 gm/ Sodium (Chloride) 158 mls @ 39 mls/hr IV ONCE ONE Stop: 02/28/17 17:03 Insulin Aspart (Novolog Insulin Sliding Scale) 0 units SUBQ ACHS [facility] PRN Reason: Protocol Stop: 04/20/17 16:29 Last Admin: 02/28/17 13:02 Dose: 4 units Ipratropium [place] (Atrovent Neb 0.5mg/2.5ml) 0.5 mg HHN [id number] [facility] Stop: 04/29/17 06:59 Last Admin: 02/28/17 12:29 Dose: 0.5 mg Ipratropium [place] (Atrovent Neb 0.5mg/2.5ml) 0.5 mg HHN [id number] [facility] Stop: 03/02/17 06:59 Mirtazapine (Remeron) 15 mg PO HS [facility] PRN Reason: Protocol Stop: 04/26/17 20:59 Last Admin: 02/27/17 20:55 Dose: 15 mg Miscellaneous (Probiotic Screen) 1 ea MC PRN PRN PRN Reason: PROTOCOL Stop: 04/21/17 16:25 Morphine Sulfate (Morphine) 1 mg IVP Q3H PRN PRN Reason: Pain (Moderate) Stop: 04/20/17 01:59 Last Admin: 02/27/17 20:11 Dose: 1 mg Nitroglycerin (Nitrostat) 0.4 mg SL Q5MIN PRN PRN Reason: Chest Pain Stop: 04/20/17 12:01 Nystatin (Nystop) 100,000 units TP BID PRN PRN Reason: SKIN EXCORIATIONS Stop: 04/21/17 15:35 Last Admin: 02/21/17 11:46 Dose: 100,000 units Ondansetron HCl (Zofran) 4 mg IV Q6H PRN PRN Reason: Nausea Stop: 04/20/17 03:38 Spironolactone (Aldactone) 50 mg PO BID [facility] Stop: 04/27/17 08:59 Last Admin: 02/28/17 09:17 Dose: 50 mg General: No acute distress, no Cooperative HEENT: Atraumatic Neck: Supple, JVD, Thyromegaly Assessment/Plan - Problem List Patient Problems: All Active Problems Acute kidney failure (Acute) 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 Azotemia (Acute) R79.89 Bradycardia (Acute) R00.1 COPD (chronic obstructive pulmonary disease) (Acute) Cardiomegaly (Acute) I51.7 Chest pain (Acute) R07.9 Decubitus ulcer of buttock, 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 Nutritional Asmnt/Malnutr-PDOC - Dietary Evaluation Malnutrition Findings (Please click <Entered> for more info): Nutritional Asmnt/Malnutrition Start: 02/21/17 18: 20 Text: Status: Complete Freq: Document 02/21/17 18:21 LCELLEN (Rec: 02/21/17 18:32 ALICEELLEN [email or web address]) Nutritional Asmnt/Malnutrition Patient General Information Nutritional Screening High Risk Consult Diagnosis gastric outlet obstruction Pertinent Medical Hx/Surgical Hx HTN, OA, DM, GERD Subjective Information Pt seen sleeping at the time of visit, attempted x 2. Spoke with RN, pt consumed 50% of breakfast and only the soup of lunch today, not much appetite, no complain of N/V. Pt will be NPO from midnight for GI exam tommorrow. Current Diet Order/ Nutrition Support no added salt 4gm, CCHO, no eggs, banana and cereal in morning Pertinent Medications colace, lasix, novolog, levaquin, piperacillin Pertinent Labs 02/20 Na 137, K 4.5, Cl 104, BUN 55, Cr 1.6, Glucose 137, POC 126-199 since admit, Ca 8. 3 Nutritional Hx/Data Height 1.57 m Height (Calculated Centimeters) 157.5 Current Weight (lbs) 97.023 kg Weight (Calculated Kilograms) 97.0 Weight (Calculated Grams) 32278.4 [place] Body Weight 110 % [place] Body Weight 194 Body Mass Index (BMI) 39.1 Weight Status Obese GI Symptoms GI Symptoms None Last BM none Difficult in: None Skin Integrity/Comment: multiple maceration, abrasion to right/left medial thigh Current %PO Poor (25-49%) Estimated Nutritional Goals BEE in Kcals: Adj wt of IBW Calories/Kcals/Kg 27-32 Kcals Calculated Protein: Adj wt of IBW Protein g/k-1.2 Protein Calculated 62-74 Fluid: ml Nutritional Problem 1. Problem Problem inadequate PO intake Etiology poor appetite Signs/Symptoms: PO intake 25-50% Malnutrition Alert Protein-Calorie Malnutrition N/A Is there a minimum of two criteria No selected? Query Text:Check all the applicable criteria. A minimum of two criteria are recommended for diagnosis of either severe or non-severe malnutrition. Intervention/Recommendation Comments 1. Continue with current diet as ordered. 2. Monitor PO intake, GI symptons, wt, labs and skin integrity 3. F/U as high risk in 2-3 days, 02/23-02/24 Expected Outcomes/Goals Expected Outcomes/Goals 1. PO intake to meet at least 75% of nutritional needs. 2. Wt stability, skin to remain intact, labs to improve
[2017-02-28] MEDS: Dextrose 10% 1,000 ML IV SCH (16:15)
[2017-02-28] MEDS: D5-0.45NS 1,000 ML IV SCH (17:47)
[2017-02-28] MEDS: Levofloxacin 250 mg/50 mL Premix Bag IV SCH (20:17)
[2017-02-28 21:45] LABS: ANION GAP 13.8 (7.0-16.0); CALCIUM SERUM 7.2 mg/dL (8.6-10.3); CARBON DIOXIDE 20.5 mEq/L (21.0-31.0); GFR AFRICAN-AMERICAN 19.9 ml/min (>90); GFR NON AFRICAN-AMERICAN 16.4 ml/min; POTASSIUM SERUM 3.3 mEq/L (3.5-5.1)
[2017-03-01] MEDS: Albumin 25% 25gm/100mL 25 GM/100 ML BTL IV SCH (00:58)
[2017-03-01] MEDS: INSULIN ASPART SLIDING SCALE 100 UNITS/ML UNIT SUBQ SCH ×4 (06:30→21:37)
[2017-03-01] MEDS: Albuterol/Ipratropium Neb 3 ML AERS HHN SCH ×3 (07:23→18:43)
[2017-03-01] MEDS: Chlorhexidine Gluconate 0.12% 15mL Mouthwash MM SCH ×2 (08:30→20:08)
[2017-03-01] MEDS: Linezolid 600mg/300mL 600 MG/300 ML BAG IV SCH ×2 (08:58→21:38)
[2017-03-01 09:26] LABS: EOSINOPHILE ABSOLUTE 0.3 Th/cmm (0.1-0.4); HEMATOCRIT 30.9 % (41.0-60); HEMOGLOBIN 10.4 gm/dL (12-16); LYMPHOCYTE ABSOLUTE 1.3 Th/cmm (1.5-3.0); MEAN CORPUSCULAR HGB CONC 33.7 pg (28.0-36.0); MEAN PLATELET VOLUME 6.9 fl; MONOCYTE ABSOLUTE 0.6 Th/cmm (0.3-1.0); NEUTROPHILE ABSOLUTE 28.6 Th/cmm (1.8-8.0); PLATELET COUNT 126 Th/cmm (150-400); RED BLOOD COUNT 3.59 Mil/cmm (3.80-5.20)
[2017-03-01] MEDS: Morphine Sulfate 2 mg/mL 1mL Syr IVP PRN (09:28)
[2017-03-01] MEDS: Multivitamin w/ Minerals Tab PO SCH (09:31)
[2017-03-01] MEDS: Pantoprazole 80 MG in Sodium Chloride 0.9% 100 ML IV SCH ×2 (09:31→19:26)
[2017-03-01 09:36] LABS: WHITE BLOOD COUNT 30.8 Th/cmm (4.8-10.8)
[2017-03-01 09:49] LABS: ALB/GLOB RATIO 1.8 (1.0-1.8); ALBUMIN 3.1 gm/dL (3.7-5.3); ANION GAP 15.1 (7.0-16.0); BILIRUBIN,TOTAL 0.6 mg/dL (0.3-1.0); CALCIUM SERUM 7.4 mg/dL (8.6-10.3); CARBON DIOXIDE 17.2 mEq/L (21.0-31.0); CREATININE - SERUM 2.8 mg/dL (0.6-1.2); GFR AFRICAN-AMERICAN 21.5 ml/min (>90); GFR NON AFRICAN-AMERICAN 17.8 ml/min; MAGNESIUM 2.1 mg/dL (1.9-2.7); PHOSPHOROUS 2.5 mg/dL (2.5-5.0); POTASSIUM SERUM 3.3 mEq/L (3.5-5.1); TOTAL PROTEIN,SERUM 4.8 gm/dL (6.0-8.3)
[2017-03-01 09:51] LABS: INR 1.32 (0.5-1.4); PROTHROMBIN TIME (TEST) 13.9 SECONDS (9.5-11.5)
[2017-03-01 09:58] LABS: TOTAL CELLS COUNTED 100
[2017-03-01 09:59] LABS: BAND NEUTROPHILE 10 % (0-10); EOSINOPHIL 1 % (0-5); LYMPHOCYTE 1 % (20-50); NEUTROPHILS 88 % (40-80)
--- NOTE | 2017-03-01 10:49 | Internal Medicine Prog Note ---
Internal Medicine Subjective - Subjective Service Date: 03/01/17 (remains on levophed 6mcg, orally intubated. ) Patient seen and examined:: with staff Patient is:: in bed Per staff patient has:: tolerating meds Internal Medicine Objective - Results Result Diagrams: 03/01/17 09:15 03/01/17 09:15 Recent Labs: Laboratory Last Values WBC 30.8 Th/cmm (4.8-10.8) H* 03/01/17 09:15 RBC 3.59 Mil/cmm (3.80-5.20) L 03/01/17 09:15 Hgb 10.4 gm/dL (12-16) L 03/01/17 09:15 Hct 30.9 % (41.0-60) L 03/01/17 09:15 MCV 86.0 fl (81-100) 03/01/17 09:15 MCH 29.0 pg (27.0-31.0) 03/01/17 09:15 MCHC Differential 33.7 pg (28.0-36.0) 03/01/17 09:15 RDW 13.0 % (11.5-20.0) 03/01/17 09:15 Plt Count 126 Th/cmm (150-400) L 03/01/17 09:15 MPV 6.9 fl 03/01/17 09:15 Neutrophils % [employer] 02/25/17 04:50 Band Neutrophils % 10 % (0-10) 03/01/17 09:15 Lymphocytes % [employer] 02/25/17 04:50 Monocytes % [employer] 02/25/17 04:50 Eosinophils % [employer] 02/25/17 04:50 Basophils % [employer] 02/25/17 04:50 Neutrophils (Manual) 88 % (40-80) H 03/01/17 09:15 Lymphocytes 1 % (20-50) L 03/01/17 09:15 Monocytes 2 % (2-10) 02/28/17 06:20 Eosinophils 1 % (0-5) 03/01/17 09:15 Metamyelocytes 1 % (0-0) H 02/18/17 23:35 Hypochromia 1+ 02/18/17 23:35 Platelet Estimate ADEQUATE (NORMAL) 02/19/17 04:11 PT 13.9 SECONDS (9.5-11.5) H 03/01/17 09:15 INR 1.32 (0.5-1.4) 03/01/17 09:15 PTT (Actin FS) 53.1 SECONDS (26.0-38.0) H 03/01/17 09:15 Specimen Source ARTERIAL 02/28/17 09:33 Sample Site Left Radial 02/28/17 09:33 pH 7.50 (7.35-7.45) H 02/28/17 09:33 pCO2 24.0 mmHg (35.0-45.0) L* 02/28/17 09:33 pO2 169.0 mmHg (80.0-100.0) H 02/28/17 09:33 HCO3 22.7 mEq/L (20.0-26.0) 02/28/17 09:33 Base Excess 2.9 mEq/L (-3.0-3.0) 02/28/17 09:33 O2 Saturation 100.0 % (92.0-100.0) 02/28/17 09:33 Jorje Test Y 02/28/17 09:33 Vent Rate 12 02/28/17 09:33 Inspired O2 50 02/28/17 09:33 Tidal Volume 550 02/28/17 09:33 PEEP 5 02/28/17 09:33 Pressure (ins/psv/peep) N/A 02/28/17 09:33 Critical Value [place] 02/28/17 09:33 Sodium 122 mEq/L (136-145) L 03/01/17 09:15 Potassium 3.3 mEq/L (3.5-5.1) L 03/01/17 09:15 Chloride 93 mEq/L (98-107) L 03/01/17 09:15 Carbon Dioxide 17.2 mEq/L (21.0-31.0) L 03/01/17 09:15 Anion Gap 15.1 (7.0-16.0) 03/01/17 09:15 BUN 44 mg/dL (7-25) H 03/01/17 09:15 Creatinine 2.8 mg/dL (0.6-1.2) H 03/01/17 09:15 Est GFR ( Amer) 21.5 ml/min (>90) 03/01/17 09:15 Est GFR (Non-Af Amer) 17.8 ml/min 03/01/17 09:15 BUN/Creatinine Ratio 15.7 03/01/17 09:15 Glucose 195 mg/dL (70-105) H 03/01/17 09:15 POC Glucose 168 MG/DL (70 - 105) H 03/01/17 06:27 Hemoglobin A1c % 5.8 % (4.0-6.0) 02/22/17 10:38 Whole Bld Lactic Acid 2.40 mmol/L (0.60-1.99) H* 02/27/17 15:04 Calcium 7.4 mg/dL (8.6-10.3) L 03/01/17 09:15 Phosphorus 2.5 mg/dL (2.5-5.0) 03/01/17 09:15 Magnesium 2.1 mg/dL (1.9-2.7) 03/01/17 09:15 Total Bilirubin 0.6 mg/dL (0.3-1.0) 03/01/17 09:15 Direct Bilirubin 0.09 mg/dL (0.0-0.2) 02/18/17 23:35 AST 20 U/L (13-39) 03/01/17 09:15 ALT 6 U/L (7-52) L 03/01/17 09:15 Alkaline Phosphatase 56 U/L (34-104) 03/01/17 09:15 B-Natriuretic Peptide 220.0 pg/mL (5.0-100.0) H 02/22/17 10:38 Total Protein 4.8 gm/dL (6.0-8.3) L 03/01/17 09:15 Albumin 3.1 gm/dL (3.7-5.3) L 03/01/17 09:15 Globulin 1.7 gm/dL 03/01/17 09:15 Albumin/Globulin Ratio 1.8 (1.0-1.8) 03/01/17 09:15 Amylase 36 U/L (29-103) 02/18/17 23:35 Lipase 10 U/L (11-82) L 02/18/17 23:35 Free T4 1.04 ng/dL (0.82-1.77) 02/25/17 04:50 Free T3 0.7 pg/mL (2.0-4.4) L 02/25/17 04:50 TSH 0.84 uIU/ml (0.34-5.60) 02/25/17 04:50 Urine Source [place] 02/27/17 15:00 Urine Color YELLOW 02/27/17 15:00 Urine Clarity CLOUDY (CLEAR) H 02/27/17 15:00 Urine pH 5.5 (4.6 - 8.0) 02/27/17 15:00 Ur Specific [place] <= 1.005 (1.005-1.030) 02/27/17 15:00 Urine Protein TRACE mg/dL (NEGATIVE) 02/27/17 15:00 Urine Glucose (UA) NEGATIVE mg/dL (NEGATIVE) 02/27/17 15:00 Urine Ketones NEGATIVE mg/dL (NEGATIVE) 02/27/17 15:00 Urine Blood LARGE (NEGATIVE) H 02/27/17 15:00 Urine Nitrate NEGATIVE (NEGATIVE) 02/27/17 15:00 Urine Bilirubin NEGATIVE (NEGATIVE) 02/27/17 15:00 Urine Urobilinogen 0.2 E.U./dL (0.2 - 1.0) 02/27/17 15:00 Ur Leukocyte Esterase LARGE (NEGATIVE) H 02/27/17 15:00 Urine RBC 10-25 /hpf (0-5) H 02/27/17 15:00 Urine WBC >100 /hpf (0-5) H 02/27/17 15:00 Ur Epithelial Cells MODERATE /lpf (FEW) 02/27/17 15:00 Urine Bacteria MODERATE /hpf (NONE SEEN) H 02/27/17 15:00 Urine Yeast MODERATE /hpf (NONE SEEN) H 02/20/17 16:15 Blood Type A POSITIVE 02/27/17 15:04 Antibody Screen NEGATIVE 02/27/17 15:04 Crossmatch See Detail 02/27/17 15:04 - Physical Exam Vitals and I&O: Vital Signs Temp 97.3 F 03/01/17 08:00 Pulse 87 03/01/17 09:30 Resp 15 03/01/17 08:00 BP 92/56 03/01/17 09:31 Pulse Ox 100 03/01/17 09:30 Intake & Output 02/28/17 03/01/17 03/01/17 18:59 06:59 18:59 Intake Total 456.601 8796.872 28.167 Output Total 1400 Balance 895.333 425.872 28.167 Weight (lbs) 234 lb Intake: Intake, IV Amount 163.618 2506.872 28.167 Albumin 25% 25gm/100mL 25 0 200 gm In 100 ml @ 50 mls/hr IV Q8H [facility] Rx#:[id number] D5-0.45NS 1,000 ml @ 10 117.833 122.167 mls/hr IV .Q24H [facility] Rx#: [id number] Dextrose 10% 1,000 ml @ 307.5 412.5 30 mls/hr IV .Q24H [facility] Rx #:[id number] Levofloxacin 250mg/50mL 50 250 mg In 50 ml @ 50 mls/ hr IV Q24HR [facility] Rx#: [id number] Linezolid 600mg/300mL 600 300 300 mg In 300 ml @ 300 mls/ hr IV Q12HR [facility] Rx#: [id number] Meropenem 1 gm In 100 100 Dextrose 5% 100 ml @ 100 mls/hr IV Q12H [facility] Rx#: [id number] Norepinephrine 8 mg In 222.039 Sodium Chloride 0.9% 250 ml @ Per Protocol IV TITR [facility] Rx#:[id number] Pantoprazole 80 mg In 70 169.166 28.167 Sodium Chloride 0.9% 100 ml @ 10 mls/hr IV Q10H [facility] Rx#:[id number] Other 250 Output: Urine 1400 Active Medications: Current Medications Acetaminophen (Tylenol) 650 mg PO Q4HR PRN PRN Reason: Pain (Mild) Stop: 04/20/17 12:01 Last Admin: 02/21/17 09:54 Dose: 650 mg Acetaminophen/Hydrocodone Bitart ([employer] 5mg/325mg) 1 tab PO Q6H PRN PRN Reason: PAIN Stop: 04/20/17 13:24 Albuterol/Ipratropium (Duoneb Neb) 3 ml HHN Q4HRT PRN PRN Reason: Wheezing Stop: 04/27/17 19:59 Last Admin: 02/28/17 03:18 Dose: 3 ml Albuterol/Ipratropium (Duoneb Neb) 3 ml HHN [id number] [facility] Stop: 04/27/17 19:59 Last Admin: 03/01/17 07:23 Dose: 3 ml Aspirin (Ecotrin) 81 mg PO DAILY [facility] Stop: 04/21/17 08:59 Last Admin: 03/01/17 09:30 Dose: Not Given Chlorhexidine Gluconate (Peridex) 15 ml MM 0800,1999 [facility] Stop: 04/28/17 19:59 Last Admin: 03/01/17 08:30 Dose: 15 ml Diltiazem HCl (Cardizem) 5 mg IVP Q4H PRN PRN Reason: HR > 120 Stop: 04/27/17 19:59 Last Admin: 02/27/17 04:59 Dose: 5 mg Docusate Sodium (Colace) 100 mg PO BID [facility] Stop: 04/20/17 16:59 Last Admin: 03/01/17 09:31 Dose: Not Given Fluconazole (Diflucan) 100 mg PO DAILY [facility] Stop: 03/08/17 08:59 Last Admin: 03/01/17 09:31 Dose: Not Given Furosemide (Lasix) 40 mg PO DAILY [facility] Stop: 04/21/17 08:59 Last Admin: 03/01/17 09:31 Dose: Not Given Pantoprazole Sodium 80 mg/ (Sodium Chloride) 100 mls @ 10 mls/hr IV Q10H [facility] Stop: 04/20/17 08:59 Last Admin: 03/01/17 09:31 Dose: 10 mls/hr Linezolid (Zyvox) 600 mg in 300 mls @ 300 mls/hr IV Q12HR [facility] Stop: 04/22/17 20:59 Last Admin: 03/01/17 08:58 Dose: 300 mls/hr Levofloxacin (Levaquin Pb) 250 mg in 50 mls @ 50 mls/hr IV Q24HR [facility] Stop: 04/23/17 20:59 Last Infusion: 02/28/17 21:17 Dose: Infused Phenylephrine HCl 10 mg/ (Sodium Chloride) 250 mls @ 0 mls/hr IV TITR [facility]; Per Protocol PRN Reason: Protocol Stop: 04/28/17 07:59 Norepinephrine Bitartrate 8 mg (/ Sodium Chloride) 258 mls @ 0 mls/hr IV TITR [facility]; Per Protocol PRN Reason: Protocol Stop: 04/28/17 09:59 Last Titration: 03/01/17 06:31 Dose: 6 mcg/min, 11.61 mls/hr Meropenem 1 gm/ Dextrose 100 mls @ 100 mls/hr IV Q12H [facility] Stop: 04/28/17 12:29 Last Infusion: 03/01/17 01:00 Dose: Infused Dextrose/Sodium Chloride (D5-0.45ns) 1,000 mls @ 10 mls/hr IV .Q24H [facility] Stop: 04/28/17 16:09 Last Infusion: 03/01/17 06:00 Dose: 10 mls/hr Dextrose (Dextrose 10%) 1,000 mls @ 30 mls/hr IV .Q24H [facility] Stop: 04/28/17 16:14 Last Infusion: 03/01/17 06:00 Dose: 30 mls/hr Insulin Aspart (Novolog Insulin Sliding Scale) 0 units SUBQ ACHS [facility] PRN Reason: Protocol Stop: 04/20/17 16:29 Last Admin: 03/01/17 06:30 Dose: Not Given Mirtazapine (Remeron) 15 mg PO HS [facility] PRN Reason: Protocol Stop: 04/26/17 20:59 Last Admin: 02/28/17 21:23 Dose: 15 mg Miscellaneous (Probiotic Screen) 1 ea MC PRN PRN PRN Reason: PROTOCOL Stop: 04/21/17 16:25 Morphine Sulfate (Morphine) 1 mg IVP Q3H PRN PRN Reason: Pain (Moderate) Stop: 04/20/17 01:59 Last Admin: 03/01/17 09:28 Dose: 1 mg Nitroglycerin (Nitrostat) 0.4 mg SL Q5MIN PRN PRN Reason: Chest Pain Stop: 04/20/17 12:01 Nystatin (Nystop) 100,000 units TP BID PRN PRN Reason: SKIN EXCORIATIONS Stop: 04/21/17 15:35 Last Admin: 02/21/17 11:46 Dose: 100,000 units Ondansetron HCl (Zofran) 4 mg IV Q6H PRN PRN Reason: Nausea Stop: 04/20/17 03:38 Spironolactone (Aldactone) 50 mg PO BID [facility] Stop: 04/27/17 08:59 Last Admin: 03/01/17 09:29 Dose: Not Given General: weak HEENT: NC/AT, PERRLA Neck: Supple Lungs: ronchi Abdomen: soft, non-tender, non-distended Extremities: excoriation Neurological: no change Internal Medicine Assmt/Plan - Assessment Assessment: Acute kidney failure (Acute) 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 Azotemia (Acute) R79.89 Bradycardia (Acute) R00.1 COPD (chronic obstructive pulmonary disease) (Acute) Cardiomegaly (Acute) I51.7 Chest pain (Acute) R07.9 Decubitus ulcer of buttock, 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 Acute respiratory failure - Plan Plan: continue vent support titrate levophed per protocol monitor glucose continue ivabx as per id follow up labs in am continue current orders Nutritional Asmnt/Malnutr-PDOC - Dietary Evaluation Malnutrition Findings (Please click <Entered> for more info): Nutritional Asmnt/Malnutrition Start: 02/21/17 18: 20 Text: Status: Complete Freq: Document 02/21/17 18:21 [facility] (Rec: 02/21/17 18:32 [email or web address] Nutritional Asmnt/Malnutrition Patient General Information Nutritional Screening High Risk Consult Diagnosis gastric outlet obstruction Pertinent Medical Hx/Surgical Hx HTN, OA, DM, GERD Subjective Information Pt seen sleeping at the time of visit, attempted x 2. Spoke with RN, pt consumed 50% of breakfast and only the soup of lunch today, not much appetite, no complain of N/V. Pt will be NPO from midnight for GI exam tommorrow. Current Diet Order/ Nutrition Support no added salt 4gm, CCHO, no eggs, banana and cereal in morning Pertinent Medications colace, lasix, novolog, levaquin, piperacillin Pertinent Labs 02/20 Na 137, K 4.5, Cl 104, BUN 55, Cr 1.6, Glucose 137, POC 126-199 since admit, Ca 8. 3 Nutritional Hx/Data Height 5 ft 2 in Height (Calculated Centimeters) 157.5 Current Weight (lbs) 213 lb 14.4 oz Weight (Calculated Kilograms) 97.0 Weight (Calculated Grams) 55083.4 Pound Body Weight 110 % Pound Body Weight 194 Body Mass Index (BMI) 39.1 Weight Status Obese GI Symptoms GI Symptoms None Last BM none Difficult in: None Skin Integrity/Comment: multiple maceration, abrasion to right/left medial thigh Current %PO Poor (25-49%) Estimated Nutritional Goals BEE in Kcals: Adj wt of IBW Calories/Kcals/Kg 27-32 Kcals Calculated Protein: Adj wt of IBW Protein g/k-1.2 Protein Calculated 62-74 Fluid: ml Nutritional Problem 1. Problem Problem inadequate PO intake Etiology poor appetite Signs/Symptoms: PO intake 25-50% Malnutrition Alert Protein-Calorie Malnutrition N/A Is there a minimum of two criteria No selected? Query Text:Check all the applicable criteria. A minimum of two criteria are recommended for diagnosis of either severe or non-severe malnutrition. Intervention/Recommendation Comments 1. Continue with current diet as ordered. 2. Monitor PO intake, GI symptons, wt, labs and skin integrity 3. F/U as high risk in 2-3 days, 02/23-02/24 Expected Outcomes/Goals Expected Outcomes/Goals 1. PO intake to meet at least 75% of nutritional needs. 2. Wt stability, skin to remain intact, labs to improve
[2017-03-01] MEDS ORDERED: Lidocaine 2% Gel 5 mL TP ONE (12:00)
[2017-03-01] MEDS ORDERED: Propofol 10 mg/mL 20mL Vial **SURGERY USE ONLY IV ONE (13:00)
[2017-03-01] MEDS ORDERED: Diatrizoate Meglumine/Diatri 30 mL Sol PO ONE (13:23)
--- NOTE | 2017-03-01 14:06 | Operative Report ---
DATE OF SURGERY: 03/01/2017 INPATIENT GASTROINTESTINAL PROCEDURE PROCEDURE: EGD with biopsy. CONSENT: Risks, benefits, alternatives, nature, indication, possible outcomes were discussed. Mentioned bleeding, infection, perforation, , disability, cardiopulmonary distress and arrest, missed lesion and cancers, need for surgery. The patient expressed understanding as well as family and provided informed consent. PREOPERATIVE DIAGNOSIS: Gastric outlet obstruction. POSTOPERATIVE DIAGNOSIS: Gastritis. No gastric outlet obstruction seen. MEDICATIONS: Per by anesthesiologist. DESCRIPTION OF PROCEDURE: The patient was placed in left side. Upper endoscope advanced from the mouth and second portion of duodenum, which appeared to be normal with bile. Scope brought back in stomach. Retroflexion view of fundus, cardia, lesser curvature. Scope was straightened. Mild antral gastritis was seen. Biopsies taken. Scope was slowly withdrawn through esophagus where an NG tube was seen in good position. Scope was then removed. COMPLICATIONS: None. FINDINGS: 1. GE junction at 40 cm with an NG tube in the proximal stomach. 2. Antral gastritis, status post biopsy. 3. No gastric outlet obstruction seen. 4. Normal duodenum. RECOMMENDATIONS: 1. KUB to confirm the NG tube still in good position. 2. Provide the patient with Protonix. 3. Follow up on biopsy. Thank you for allowing me to participate. Please call me if any questions. JOB# [id number]
--- NOTE | 2017-03-01 14:39 | Diagnostic Imaging Report ---
Upper GI (Limited) HISTORY: Nasogastric tube placement Radiopaque contrast was instilled through the nasogastric tube. The exam demonstrates the nasogastric tube positioned over the stomach. There appears to be significant gastroesophageal reflux. IMPRESSION: 1. Nasogastric tube projecting over the stomach. However, findings that appear to be associated with gastroesophageal reflux noted.
--- NOTE | 2017-03-01 14:54 | General Progress Note ---
Subjective - Review of Systems Service Date: 03/01/17 Subjective: more awake, coherent, on vent Objective - Results Result Diagrams: 03/01/17 09:15 03/01/17 09:15 Recent Labs: Laboratory Last Values WBC 30.8 Th/cmm (4.8-10.8) H* 03/01/17 09:15 RBC 3.59 Mil/cmm (3.80-5.20) L 03/01/17 09:15 Hgb 10.4 gm/dL (12-16) L 03/01/17 09:15 Hct 30.9 % (41.0-60) L 03/01/17 09:15 MCV 86.0 fl (81-100) 03/01/17 09:15 MCH 29.0 pg (27.0-31.0) 03/01/17 09:15 MCHC Differential 33.7 pg (28.0-36.0) 03/01/17 09:15 RDW 13.0 % (11.5-20.0) 03/01/17 09:15 Plt Count 126 Th/cmm (150-400) L 03/01/17 09:15 MPV 6.9 fl 03/01/17 09:15 Neutrophils % [employer] 02/25/17 04:50 Band Neutrophils % 10 % (0-10) 03/01/17 09:15 Lymphocytes % [employer] 02/25/17 04:50 Monocytes % [employer] 02/25/17 04:50 Eosinophils % [employer] 02/25/17 04:50 Basophils % [employer] 02/25/17 04:50 Neutrophils (Manual) 88 % (40-80) H 03/01/17 09:15 Lymphocytes 1 % (20-50) L 03/01/17 09:15 Monocytes 2 % (2-10) 02/28/17 06:20 Eosinophils 1 % (0-5) 03/01/17 09:15 Metamyelocytes 1 % (0-0) H 02/18/17 23:35 Hypochromia 1+ 02/18/17 23:35 Platelet Estimate ADEQUATE (NORMAL) 02/19/17 04:11 PT 13.9 SECONDS (9.5-11.5) H 03/01/17 09:15 INR 1.32 (0.5-1.4) 03/01/17 09:15 PTT (Actin FS) 53.1 SECONDS (26.0-38.0) H 03/01/17 09:15 Specimen Source ARTERIAL 02/28/17 09:33 Sample Site Left Radial 02/28/17 09:33 pH 7.50 (7.35-7.45) H 02/28/17 09:33 pCO2 24.0 mmHg (35.0-45.0) L* 02/28/17 09:33 pO2 169.0 mmHg (80.0-100.0) H 02/28/17 09:33 HCO3 22.7 mEq/L (20.0-26.0) 02/28/17 09:33 Base Excess 2.9 mEq/L (-3.0-3.0) 02/28/17 09:33 O2 Saturation 100.0 % (92.0-100.0) 02/28/17 09:33 Jorje Test Y 02/28/17 09:33 Vent Rate 12 02/28/17 09:33 Inspired O2 50 02/28/17 09:33 Tidal Volume 550 02/28/17 09:33 PEEP 5 02/28/17 09:33 Pressure (ins/psv/peep) N/A 02/28/17 09:33 Critical Value [place] 02/28/17 09:33 Sodium 122 mEq/L (136-145) L 03/01/17 09:15 Potassium 3.3 mEq/L (3.5-5.1) L 03/01/17 09:15 Chloride 93 mEq/L (98-107) L 03/01/17 09:15 Carbon Dioxide 17.2 mEq/L (21.0-31.0) L 03/01/17 09:15 Anion Gap 15.1 (7.0-16.0) 03/01/17 09:15 BUN 44 mg/dL (7-25) H 03/01/17 09:15 Creatinine 2.8 mg/dL (0.6-1.2) H 03/01/17 09:15 Est GFR ( Amer) 21.5 ml/min (>90) 03/01/17 09:15 Est GFR (Non-Af Amer) 17.8 ml/min 03/01/17 09:15 BUN/Creatinine Ratio 15.7 03/01/17 09:15 Glucose 195 mg/dL (70-105) H 03/01/17 09:15 POC Glucose 205 MG/DL (70 - 105) H 03/01/17 12:01 Hemoglobin A1c % 5.8 % (4.0-6.0) 02/22/17 10:38 Whole Bld Lactic Acid 2.40 mmol/L (0.60-1.99) H* 02/27/17 15:04 Calcium 7.4 mg/dL (8.6-10.3) L 03/01/17 09:15 Phosphorus 2.5 mg/dL (2.5-5.0) 03/01/17 09:15 Magnesium 2.1 mg/dL (1.9-2.7) 03/01/17 09:15 Total Bilirubin 0.6 mg/dL (0.3-1.0) 03/01/17 09:15 Direct Bilirubin 0.09 mg/dL (0.0-0.2) 02/18/17 23:35 AST 20 U/L (13-39) 03/01/17 09:15 ALT 6 U/L (7-52) L 03/01/17 09:15 Alkaline Phosphatase 56 U/L (34-104) 03/01/17 09:15 B-Natriuretic Peptide 220.0 pg/mL (5.0-100.0) H 02/22/17 10:38 Total Protein 4.8 gm/dL (6.0-8.3) L 03/01/17 09:15 Albumin 3.1 gm/dL (3.7-5.3) L 03/01/17 09:15 Globulin 1.7 gm/dL 03/01/17 09:15 Albumin/Globulin Ratio 1.8 (1.0-1.8) 03/01/17 09:15 Amylase 36 U/L (29-103) 02/18/17 23:35 Lipase 10 U/L (11-82) L 02/18/17 23:35 Free T4 1.04 ng/dL (0.82-1.77) 02/25/17 04:50 Free T3 0.7 pg/mL (2.0-4.4) L 02/25/17 04:50 TSH 0.84 uIU/ml (0.34-5.60) 02/25/17 04:50 Urine Source [place] 02/27/17 15:00 Urine Color YELLOW 02/27/17 15:00 Urine Clarity CLOUDY (CLEAR) H 02/27/17 15:00 Urine pH 5.5 (4.6 - 8.0) 02/27/17 15:00 Ur Specific [place] <= 1.005 (1.005-1.030) 02/27/17 15:00 Urine Protein TRACE mg/dL (NEGATIVE) 02/27/17 15:00 Urine Glucose (UA) NEGATIVE mg/dL (NEGATIVE) 02/27/17 15:00 Urine Ketones NEGATIVE mg/dL (NEGATIVE) 02/27/17 15:00 Urine Blood LARGE (NEGATIVE) H 02/27/17 15:00 Urine Nitrate NEGATIVE (NEGATIVE) 02/27/17 15:00 Urine Bilirubin NEGATIVE (NEGATIVE) 02/27/17 15:00 Urine Urobilinogen 0.2 E.U./dL (0.2 - 1.0) 02/27/17 15:00 Ur Leukocyte Esterase LARGE (NEGATIVE) H 02/27/17 15:00 Urine RBC 10-25 /hpf (0-5) H 02/27/17 15:00 Urine WBC >100 /hpf (0-5) H 02/27/17 15:00 Ur Epithelial Cells MODERATE /lpf (FEW) 02/27/17 15:00 Urine Bacteria MODERATE /hpf (NONE SEEN) H 02/27/17 15:00 Urine Yeast MODERATE /hpf (NONE SEEN) H 02/20/17 16:15 Blood Type A POSITIVE 02/27/17 15:04 Antibody Screen NEGATIVE 02/27/17 15:04 Crossmatch See Detail 02/27/17 15:04 - Physical Exam Vitals and I&O: Vital Signs Temp 97 F 03/01/17 13:00 Pulse 79 03/01/17 13:49 Resp 14 03/01/17 13:00 BP 122/65 03/01/17 13:40 Pulse Ox 100 03/01/17 14:00 Intake & Output 02/28/17 03/01/17 03/01/17 18:59 06:59 18:59 Intake Total 103.103 2763.872 428.167 Output Total 1400 Balance 895.333 425.872 428.167 Weight (lbs) 106.141 kg Intake: Intake, IV Amount 241.236 0822.872 428.167 Albumin 25% 25gm/100mL 25 0 200 gm In 100 ml @ 50 mls/hr IV Q8H [facility] Rx#:[id number] D5-0.45NS 1,000 ml @ 10 117.833 122.167 mls/hr IV .Q24H [facility] Rx#: [id number] Dextrose 10% 1,000 ml @ 307.5 412.5 30 mls/hr IV .Q24H [facility] Rx #:[id number] Levofloxacin 250mg/50mL 50 250 mg In 50 ml @ 50 mls/ hr IV Q24HR [facility] Rx#: [id number] Linezolid 600mg/300mL 600 300 300 300 mg In 300 ml @ 300 mls/ hr IV Q12HR [facility] Rx#: [id number] Meropenem 1 gm In 100 100 100 Dextrose 5% 100 ml @ 100 mls/hr IV Q12H [facility] Rx#: [id number] Norepinephrine 8 mg In 222.039 Sodium Chloride 0.9% 250 ml @ Per Protocol IV TITR [facility] Rx#:[id number] Pantoprazole 80 mg In 70 169.166 28.167 Sodium Chloride 0.9% 100 ml @ 10 mls/hr IV Q10H [facility] Rx#:[id number] Other 250 Output: Urine 1400 Active Medications: Current Medications Acetaminophen (Tylenol) 650 mg PO Q4HR PRN PRN Reason: Pain (Mild) Stop: 04/20/17 12:01 Last Admin: 02/21/17 09:54 Dose: 650 mg Acetaminophen/Hydrocodone Bitart ([place] 5mg/325mg) 1 tab PO Q6H PRN PRN Reason: PAIN Stop: 04/20/17 13:24 Albuterol/Ipratropium (Duoneb Neb) 3 ml HHN Q4HRT PRN PRN Reason: Wheezing Stop: 04/27/17 19:59 Last Admin: 02/28/17 03:18 Dose: 3 ml Albuterol/Ipratropium (Duoneb Neb) 3 ml HHN [id number] [facility] Stop: 04/27/17 19:59 Last Admin: 03/01/17 13:49 Dose: 3 ml Aspirin (Ecotrin) 81 mg PO DAILY [facility] Stop: 04/21/17 08:59 Last Admin: 03/01/17 09:30 Dose: Not Given Chlorhexidine Gluconate (Peridex) 15 ml MM 799,1999 [facility] Stop: 04/28/17 19:59 Last Admin: 03/01/17 08:30 Dose: 15 ml Diltiazem HCl (Cardizem) 5 mg IVP Q4H PRN PRN Reason: HR > 120 Stop: 04/27/17 19:59 Last Admin: 02/27/17 04:59 Dose: 5 mg Docusate Sodium (Colace) 100 mg PO BID [facility] Stop: 04/20/17 16:59 Last Admin: 03/01/17 09:31 Dose: Not Given Fluconazole (Diflucan) 100 mg PO DAILY [facility] Stop: 03/08/17 08:59 Last Admin: 03/01/17 09:31 Dose: Not Given Furosemide (Lasix) 40 mg PO DAILY [facility] Stop: 04/21/17 08:59 Last Admin: 03/01/17 09:31 Dose: Not Given Pantoprazole Sodium 80 mg/ (Sodium Chloride) 100 mls @ 10 mls/hr IV Q10H [facility] Stop: 04/20/17 08:59 Last Admin: 03/01/17 09:31 Dose: 10 mls/hr Linezolid (Zyvox) 600 mg in 300 mls @ 300 mls/hr IV Q12HR [facility] Stop: 04/22/17 20:59 Last Infusion: 03/01/17 10:00 Dose: Infused Levofloxacin (Levaquin Pb) 250 mg in 50 mls @ 50 mls/hr IV Q24HR [facility] Stop: 04/23/17 20:59 Last Infusion: 02/28/17 21:17 Dose: Infused Phenylephrine HCl 10 mg/ (Sodium Chloride) 250 mls @ 0 mls/hr IV TITR [facility]; Per Protocol PRN Reason: Protocol Stop: 04/28/17 07:59 Norepinephrine Bitartrate 8 mg (/ Sodium Chloride) 258 mls @ 0 mls/hr IV TITR [facility]; Per Protocol PRN Reason: Protocol Stop: 04/28/17 09:59 Last Titration: 03/01/17 06:31 Dose: 6 mcg/min, 11.61 mls/hr Meropenem 1 gm/ Dextrose 100 mls @ 100 mls/hr IV Q12H [facility] Stop: 04/28/17 12:29 Last Infusion: 03/01/17 13:00 Dose: Infused Potassium Chloride/Dextrose/Sod Cl (D5-0.9ns W/Kcl 20meq) 1,000 mls @ 75 mls/ hr IV .[id number] [facility] Stop: 04/30/17 14:41 Insulin Aspart (Novolog Insulin Sliding Scale) 0 units SUBQ ACHS [facility] PRN Reason: Protocol Stop: 04/20/17 16:29 Last Admin: 03/01/17 12:01 Dose: 4 units Mirtazapine (Remeron) 15 mg PO HS [facility] PRN Reason: Protocol Stop: 04/26/17 20:59 Last Admin: 02/28/17 21:23 Dose: 15 mg Miscellaneous (Probiotic Screen) 1 ea MC PRN PRN PRN Reason: PROTOCOL Stop: 04/21/17 16:25 Morphine Sulfate (Morphine) 1 mg IVP Q3H PRN PRN Reason: Pain (Moderate) Stop: 04/20/17 01:59 Last Admin: 03/01/17 09:28 Dose: 1 mg Nitroglycerin (Nitrostat) 0.4 mg SL Q5MIN PRN PRN Reason: Chest Pain Stop: 04/20/17 12:01 Nystatin (Nystop) 100,000 units TP BID PRN PRN Reason: SKIN EXCORIATIONS Stop: 04/21/17 15:35 Last Admin: 02/21/17 11:46 Dose: 100,000 units Ondansetron HCl (Zofran) 4 mg IV Q6H PRN PRN Reason: Nausea Stop: 04/20/17 03:38 Spironolactone (Aldactone) 50 mg PO BID [facility] Stop: 04/27/17 08:59 Last Admin: 03/01/17 09:29 Dose: Not Given General: Alert, No acute distress, no Cooperative HEENT: Atraumatic, EOMI Neck: Supple, JVD, +2 carotid pulse wo bruit Cardiovascular: Regular rate, Normal S1, Normal S2 Lungs: Other (coarse rhonchi) Abdomen: Bowel sounds, Soft Extremities: no Edema Neurological: Sensation intact Skin: no Rash Psych/Mental Status: Mood NL - Procedures Procedures: Procedures Procedure Code Date INSERT EMERGENCY AIRWAY 81295 02/19/17 INSERTION OF ENDOTRACHEAL AIRWAY INTO [place], VIA OPENING [id number] 02/19/17 RESPIRATORY VENTILATION, 24-96 CONSECUTIVE HOURS [id number] 02/19/17 VENT MGMT INPAT INIT DAY 02/19/17 VENT MGMT INPAT SUBQ DAY 02/19/17 Assessment/Plan - Problem List Patient Problems: All Active Problems Acute kidney failure (Acute) 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 Azotemia (Acute) R79.89 Bradycardia (Acute) R00.1 COPD (chronic obstructive pulmonary disease) (Acute) Cardiomegaly (Acute) I51.7 Chest pain (Acute) R07.9 Decubitus ulcer of buttock, 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 - Assessment Assessment: SOHAIL on CKD Acute resp failure on vent 2nd CHF, HAP, possible SOFIE, Exacerbation COPD Shock Sepsis DJD Type 2 DM GERD SOFIE Hyponatremia S/p Bishop Thacker - Plan Plan: Lab - Result Diagrams 03/01/17 09:15 03/01/17 09:15 Current Medications Acetaminophen (Tylenol) 650 mg PO Q4HR PRN PRN Reason: Pain (Mild) Stop: 04/20/17 12:01 Last Admin: 02/21/17 09:54 Dose: 650 mg Acetaminophen/Hydrocodone Bitart ([place] 5mg/325mg) 1 tab PO Q6H PRN PRN Reason: PAIN Stop: 04/20/17 13:24 Albuterol/Ipratropium (Duoneb Neb) 3 ml HHN Q4HRT PRN PRN Reason: Wheezing Stop: 04/27/17 19:59 Last Admin: 02/28/17 03:18 Dose: 3 ml Albuterol/Ipratropium (Duoneb Neb) 3 ml HHN [id number] [facility] Stop: 04/27/17 19:59 Last Admin: 03/01/17 13:49 Dose: 3 ml Aspirin (Ecotrin) 81 mg PO DAILY [facility] Stop: 04/21/17 08:59 Last Admin: 03/01/17 09:30 Dose: Not Given Chlorhexidine Gluconate (Peridex) 15 ml MM 0800,2000 [facility] Stop: 04/28/17 19:59 Last Admin: 03/01/17 08:30 Dose: 15 ml Diltiazem HCl (Cardizem) 5 mg IVP Q4H PRN PRN Reason: HR > 120 Stop: 04/27/17 19:59 Last Admin: 02/27/17 04:59 Dose: 5 mg Docusate Sodium (Colace) 100 mg PO BID [facility] Stop: 04/20/17 16:59 Last Admin: 03/01/17 09:31 Dose: Not Given Fluconazole (Diflucan) 100 mg PO DAILY [facility] Stop: 03/08/17 08:59 Last Admin: 03/01/17 09:31 Dose: Not Given Furosemide (Lasix) 40 mg PO DAILY [facility] Stop: 04/21/17 08:59 Last Admin: 03/01/17 09:31 Dose: Not Given Pantoprazole Sodium 80 mg/ (Sodium Chloride) 100 mls @ 10 mls/hr IV Q10H [facility] Stop: 04/20/17 08:59 Last Admin: 03/01/17 09:31 Dose: 10 mls/hr Linezolid (Zyvox) 600 mg in 300 mls @ 300 mls/hr IV Q12HR [facility] Stop: 04/22/17 20:59 Last Infusion: 03/01/17 10:00 Dose: Infused Levofloxacin (Levaquin Pb) 250 mg in 50 mls @ 50 mls/hr IV Q24HR [facility] Stop: 04/23/17 20:59 Last Infusion: 02/28/17 21:17 Dose: Infused Phenylephrine HCl 10 mg/ (Sodium Chloride) 250 mls @ 0 mls/hr IV TITR [facility]; Per Protocol PRN Reason: Protocol Stop: 04/28/17 07:59 Norepinephrine Bitartrate 8 mg (/ Sodium Chloride) 258 mls @ 0 mls/hr IV TITR [facility]; Per Protocol PRN Reason: Protocol Stop: 04/28/17 09:59 Last Titration: 03/01/17 06:31 Dose: 6 mcg/min, 11.61 mls/hr Meropenem 1 gm/ Dextrose 100 mls @ 100 mls/hr IV Q12H [facility] Stop: 04/28/17 12:29 Last Infusion: 03/01/17 13:00 Dose: Infused Potassium Chloride/Dextrose/Sod Cl (D5-0.9ns W/Kcl 20meq) 1,000 mls @ 75 mls/ hr IV .[id number] [facility] Stop: 04/30/17 14:41 Insulin Aspart (Novolog Insulin Sliding Scale) 0 units SUBQ ACHS [facility] PRN Reason: Protocol Stop: 04/20/17 16:29 Last Admin: 03/01/17 12:01 Dose: 4 units Mirtazapine (Remeron) 15 mg PO HS [facility] PRN Reason: Protocol Stop: 04/26/17 20:59 Last Admin: 02/28/17 21:23 Dose: 15 mg Miscellaneous (Probiotic Screen) 1 ea MC PRN PRN PRN Reason: PROTOCOL Stop: 04/21/17 16:25 Morphine Sulfate (Morphine) 1 mg IVP Q3H PRN PRN Reason: Pain (Moderate) Stop: 04/20/17 01:59 Last Admin: 03/01/17 09:28 Dose: 1 mg Nitroglycerin (Nitrostat) 0.4 mg SL Q5MIN PRN PRN Reason: Chest Pain Stop: 04/20/17 12:01 Nystatin (Nystop) 100,000 units TP BID PRN PRN Reason: SKIN EXCORIATIONS Stop: 04/21/17 15:35 Last Admin: 02/21/17 11:46 Dose: 100,000 units Ondansetron HCl (Zofran) 4 mg IV Q6H PRN PRN Reason: Nausea Stop: 04/20/17 03:38 Spironolactone (Aldactone) 50 mg PO BID [facility] Stop: 04/27/17 08:59 Last Admin: 03/01/17 09:29 Dose: Not Given Na same @ 122 Cr. down to 2.8 UOP improved to nam 2L CXR still w/ CHF, continue Lasix IV DC spironolactone still on Levo f/u electorlytes, cbc, CXR start IVF D5NS @ 70 ml/hr Nutritional Asmnt/Malnutr-PDOC - Dietary Evaluation Malnutrition Findings (Please click <Entered> for more info): Nutritional Asmnt/Malnutrition Start: 02/21/17 18: 20 Text: Status: Complete Freq: Document 02/21/17 18:21 OSKAR (Rec: 02/21/17 18:32 [facility]) Nutritional Asmnt/Malnutrition Patient General Information Nutritional Screening High Risk Consult Diagnosis gastric outlet obstruction Pertinent Medical Hx/Surgical Hx HTN, OA, DM, GERD Subjective Information Pt seen sleeping at the time of visit, attempted x 2. Spoke with RN, pt consumed 50% of breakfast and only the soup of lunch today, not much appetite, no complain of N/V. Pt will be NPO from midnight for GI exam tommorrow. Current Diet Order/ Nutrition Support no added salt 4gm, CCHO, no eggs, banana and cereal in morning Pertinent Medications colace, lasix, novolog, levaquin, piperacillin Pertinent Labs 02/20 Na 137, K 4.5, Cl 104, BUN 55, Cr 1.6, Glucose 137, POC 126-199 since admit, Ca 8. 3 Nutritional Hx/Data Height 1.57 m Height (Calculated Centimeters) 157.5 Current Weight (lbs) 97.023 kg Weight (Calculated Kilograms) 97.0 Weight (Calculated Grams) 07527.4 [place] Body Weight 110 % [place] Body Weight 194 Body Mass Index (BMI) 39.1 Weight Status Obese GI Symptoms GI Symptoms None Last BM none Difficult in: None Skin Integrity/Comment: multiple maceration, abrasion to right/left medial thigh Current %PO Poor (25-49%) Estimated Nutritional Goals BEE in Kcals: Adj wt of IBW Calories/Kcals/Kg 27-32 Kcals Calculated Protein: Adj wt of IBW Protein g/k-1.2 Protein Calculated 62-74 Fluid: ml Nutritional Problem 1. Problem Problem inadequate PO intake Etiology poor appetite Signs/Symptoms: PO intake 25-50% Malnutrition Alert Protein-Calorie Malnutrition N/A Is there a minimum of two criteria No selected? Query Text:Check all the applicable criteria. A minimum of two criteria are recommended for diagnosis of either severe or non-severe malnutrition. Intervention/Recommendation Comments 1. Continue with current diet as ordered. 2. Monitor PO intake, GI symptons, wt, labs and skin integrity 3. F/U as high risk in 2-3 days, 02/23-02/24 Expected Outcomes/Goals Expected Outcomes/Goals 1. PO intake to meet at least 75% of nutritional needs. 2. Wt stability, skin to remain intact, labs to improve
[2017-03-01] MEDS: D5-0.9NS w/KCL 20mEq 1,000 ML IV SCH (15:30)
[2017-03-01] MEDS: Levofloxacin 250 mg/50 mL Premix Bag IV SCH (20:24)
[2017-03-02] MEDS ORDERED: Albuterol/Ipratropium Neb 3 ML AERS HHN ONE (00:46)
[2017-03-02] MEDS: Pantoprazole 80 MG in Sodium Chloride 0.9% 100 ML IV SCH ×2 (05:14→15:37)
[2017-03-02] MEDS: D5-0.9NS w/KCL 20mEq 1,000 ML IV SCH ×2 (05:55→20:35)
[2017-03-02] MEDS: Albuterol/Ipratropium Neb 3 ML AERS HHN SCH ×4 (06:25→20:10)
[2017-03-02] MEDS: INSULIN ASPART SLIDING SCALE 100 UNITS/ML UNIT SUBQ SCH ×4 (06:58→21:13)
[2017-03-02] MEDS: Chlorhexidine Gluconate 0.12% 15mL Mouthwash MM SCH ×2 (08:09→20:24)
[2017-03-02 09:03] LABS: EOSINOPHILE ABSOLUTE 0.7 Th/cmm (0.1-0.4); HEMATOCRIT 32.3 % (41.0-60); HEMOGLOBIN 10.7 gm/dL (12-16); LYMPHOCYTE ABSOLUTE 1.4 Th/cmm (1.5-3.0); MEAN CORPUSCULAR HEMOGLOBIN 28.5 pg (27.0-31.0); MEAN CORPUSCULAR HGB CONC 33.1 pg (28.0-36.0); MEAN PLATELET VOLUME 7.6 fl; MONOCYTE ABSOLUTE 0.7 Th/cmm (0.3-1.0); NEUTROPHILE ABSOLUTE 28.7 Th/cmm (1.8-8.0); PLATELET COUNT 111 Th/cmm (150-400); RED BLOOD COUNT 3.76 Mil/cmm (3.80-5.20); RED CELL DISTRIBUTION WIDTH 13.2 % (11.5-20.0)
[2017-03-02 09:10] LABS: WHITE BLOOD COUNT 31.5 Th/cmm (4.8-10.8)
[2017-03-02] MEDS: Morphine Sulfate 2 mg/mL 1mL Syr IVP PRN ×2 (09:14→20:33)
[2017-03-02] MEDS: Multivitamin w/ Minerals Tab PO SCH (09:15)
[2017-03-02] MEDS: Linezolid 600mg/300mL 600 MG/300 ML BAG IV SCH ×2 (09:16→21:17)
[2017-03-02 09:18] LABS: CALCIUM SERUM 7.6 mg/dL (8.6-10.3); CARBON DIOXIDE 19.3 mEq/L (21.0-31.0); CREATININE - SERUM 2.5 mg/dL (0.6-1.2); GFR AFRICAN-AMERICAN 24.6 ml/min (>90); GFR NON AFRICAN-AMERICAN 20.3 ml/min; POTASSIUM SERUM 3.3 mEq/L (3.5-5.1)
[2017-03-02] MEDS: NYSTATIN 100000 UNITS/GM POWD TP PRN (10:00)
--- NOTE | 2017-03-02 11:20 | Pathology Report ---
[id number] Collection date: 03/01/2017 Surgeon: Dr. Windy Spicer Specimen Description: Antrum biopsy Gross Description: Received in formalin are three thomas soft tissue fragments ranging from 0.1 to 0.2 cm in greatest dimension. Totally submitted in one cassette. Microscopic Description: The histologic sections show gastric mucosa with mild chronic inflammation present consisting of lymphocytes and plasma cells. The Giemsa stain shows no evidence for Helicobacter pylori. Diagnosis: 1. Mild chronic gastritis, antrum biopsy. 2. The Giemsa stain is negative for Helicobacter pylori. [facility]# [id number] MTDD
--- NOTE | 2017-03-02 12:21 | Diagnostic Imaging Report ---
CHEST X-RAY: AP view INDICATION: Shortness of breath COMPARISON: 02/28/2017 Findings: ET tube is seen with tip 4 cm above the abhishek. Remaining support devices are stable. Findings of CHF are seen with left perihilar infiltrates. Small right effusion is noted. Marked cardiomegaly is noted. IMPRESSION: Persistent CHF with left perihilar infiltrates. Marked cardiomegaly.
--- NOTE | 2017-03-02 13:08 | GI Progress Note ---
Subjective - Review of Systems Subjective: NO EVENTS Objective - Results Result Diagrams: 03/02/17 08:40 03/02/17 08:40 Recent Labs: Laboratory Last Values WBC 31.5 Th/cmm (4.8-10.8) H* 03/02/17 08:40 RBC 3.76 Mil/cmm (3.80-5.20) L 03/02/17 08:40 Hgb 10.7 gm/dL (12-16) L 03/02/17 08:40 Hct 32.3 % (41.0-60) L 03/02/17 08:40 MCV 86.0 fl (81-100) 03/02/17 08:40 MCH 28.5 pg (27.0-31.0) 03/02/17 08:40 MCHC Differential 33.1 pg (28.0-36.0) 03/02/17 08:40 RDW 13.2 % (11.5-20.0) 03/02/17 08:40 Plt Count 111 Th/cmm (150-400) L 03/02/17 08:40 MPV 7.6 fl 03/02/17 08:40 Neutrophils % [employer] 02/25/17 04:50 Band Neutrophils % 10 % (0-10) 03/01/17 09:15 Lymphocytes % [employer] 02/25/17 04:50 Monocytes % [employer] 02/25/17 04:50 Eosinophils % [employer] 02/25/17 04:50 Basophils % [employer] 02/25/17 04:50 Neutrophils (Manual) 88 % (40-80) H 03/01/17 09:15 Lymphocytes 1 % (20-50) L 03/01/17 09:15 Monocytes 2 % (2-10) 02/28/17 06:20 Eosinophils 1 % (0-5) 03/01/17 09:15 Metamyelocytes 1 % (0-0) H 02/18/17 23:35 Hypochromia 1+ 02/18/17 23:35 Platelet Estimate ADEQUATE (NORMAL) 02/19/17 04:11 PT 13.9 SECONDS (9.5-11.5) H 03/01/17 09:15 INR 1.32 (0.5-1.4) 03/01/17 09:15 PTT (Actin FS) 53.1 SECONDS (26.0-38.0) H 03/01/17 09:15 Specimen Source ARTERIAL 02/28/17 09:33 Sample Site Left Radial 02/28/17 09:33 pH 7.50 (7.35-7.45) H 02/28/17 09:33 pCO2 24.0 mmHg (35.0-45.0) L* 02/28/17 09:33 pO2 169.0 mmHg (80.0-100.0) H 02/28/17 09:33 HCO3 22.7 mEq/L (20.0-26.0) 02/28/17 09:33 Base Excess 2.9 mEq/L (-3.0-3.0) 02/28/17 09:33 O2 Saturation 100.0 % (92.0-100.0) 02/28/17 09:33 Jorje Test Y 02/28/17 09:33 Vent Rate 12 02/28/17 09:33 Inspired O2 50 02/28/17 09:33 Tidal Volume 550 02/28/17 09:33 PEEP 5 02/28/17 09:33 Pressure (ins/psv/peep) N/A 02/28/17 09:33 Critical Value [place] 02/28/17 09:33 Sodium 125 mEq/L (136-145) L 03/02/17 08:40 Potassium 3.3 mEq/L (3.5-5.1) L 03/02/17 08:40 Chloride 96 mEq/L (98-107) L 03/02/17 08:40 Carbon Dioxide 19.3 mEq/L (21.0-31.0) L 03/02/17 08:40 Anion Gap 13.0 (7.0-16.0) 03/02/17 08:40 BUN 41 mg/dL (7-25) H 03/02/17 08:40 Creatinine 2.5 mg/dL (0.6-1.2) H 03/02/17 08:40 Est GFR ( Amer) 24.6 ml/min (>90) 03/02/17 08:40 Est GFR (Non-Af Amer) 20.3 ml/min 03/02/17 08:40 BUN/Creatinine Ratio 16.4 03/02/17 08:40 Glucose 153 mg/dL (70-105) H 03/02/17 08:40 POC Glucose 169 MG/DL (70 - 105) H 03/02/17 11:42 Hemoglobin A1c % 5.8 % (4.0-6.0) 02/22/17 10:38 Whole Bld Lactic Acid 2.40 mmol/L (0.60-1.99) H* 02/27/17 15:04 Calcium 7.6 mg/dL (8.6-10.3) L 03/02/17 08:40 Phosphorus 2.5 mg/dL (2.5-5.0) 03/01/17 09:15 Magnesium 2.1 mg/dL (1.9-2.7) 03/01/17 09:15 Total Bilirubin 0.6 mg/dL (0.3-1.0) 03/01/17 09:15 Direct Bilirubin 0.09 mg/dL (0.0-0.2) 02/18/17 23:35 AST 20 U/L (13-39) 03/01/17 09:15 ALT 6 U/L (7-52) L 03/01/17 09:15 Alkaline Phosphatase 56 U/L (34-104) 03/01/17 09:15 Ammonia 38 umol/L (16-53) 03/01/17 17:28 B-Natriuretic Peptide 220.0 pg/mL (5.0-100.0) H 02/22/17 10:38 Total Protein 4.8 gm/dL (6.0-8.3) L 03/01/17 09:15 Albumin 3.1 gm/dL (3.7-5.3) L 03/01/17 09:15 Globulin 1.7 gm/dL 03/01/17 09:15 Albumin/Globulin Ratio 1.8 (1.0-1.8) 03/01/17 09:15 Amylase 36 U/L (29-103) 02/18/17 23:35 Lipase 10 U/L (11-82) L 02/18/17 23:35 Vitamin B12 860 pg/mL (232-1245) 02/26/17 04:45 Free T4 1.04 ng/dL (0.82-1.77) 02/25/17 04:50 Free T3 0.7 pg/mL (2.0-4.4) L 02/25/17 04:50 TSH 0.84 uIU/ml (0.34-5.60) 02/25/17 04:50 Urine Source [place] 02/27/17 15:00 Urine Color YELLOW 02/27/17 15:00 Urine Clarity CLOUDY (CLEAR) H 02/27/17 15:00 Urine pH 5.5 (4.6 - 8.0) 02/27/17 15:00 Ur Specific [place] <= 1.005 (1.005-1.030) 02/27/17 15:00 Urine Protein TRACE mg/dL (NEGATIVE) 02/27/17 15:00 Urine Glucose (UA) NEGATIVE mg/dL (NEGATIVE) 02/27/17 15:00 Urine Ketones NEGATIVE mg/dL (NEGATIVE) 02/27/17 15:00 Urine Blood LARGE (NEGATIVE) H 02/27/17 15:00 Urine Nitrate NEGATIVE (NEGATIVE) 02/27/17 15:00 Urine Bilirubin NEGATIVE (NEGATIVE) 02/27/17 15:00 Urine Urobilinogen 0.2 E.U./dL (0.2 - 1.0) 02/27/17 15:00 Ur Leukocyte Esterase LARGE (NEGATIVE) H 02/27/17 15:00 Urine RBC 10-25 /hpf (0-5) H 02/27/17 15:00 Urine WBC >100 /hpf (0-5) H 02/27/17 15:00 Ur Epithelial Cells MODERATE /lpf (FEW) 02/27/17 15:00 Urine Bacteria MODERATE /hpf (NONE SEEN) H 02/27/17 15:00 Urine Yeast MODERATE /hpf (NONE SEEN) H 02/20/17 16:15 Blood Type A POSITIVE 02/27/17 15:04 Antibody Screen NEGATIVE 02/27/17 15:04 Crossmatch See Detail 02/27/17 15:04 - Physical Exam Vitals and I&O: Vital Signs Temp 96.5 F 03/02/17 08:00 Pulse 98 03/02/17 08:00 Resp 18 03/02/17 08:00 BP 122/66 03/02/17 09:15 Pulse Ox 100 03/02/17 08:00 Intake & Output 03/01/17 03/02/17 03/02/17 18:59 06:59 18:59 Intake Total 6929.400 0419.753 312.9 Output Total 2500 750 Balance -720.457 1862.753 312.9 Weight (lbs) 105.489 kg 105.46 kg Intake: Intake, IV Amount 170.884 9259.753 312.9 D5-0.9NS w/KCL 20mEq 1, 1000 000 ml @ 75 mls/hr IV . [id number] [facility] Rx#:[id number] Levofloxacin 250mg/50mL 50 250 mg In 50 ml @ 50 mls/ hr IV Q24HR [facility] Rx#: [id number] Linezolid 600mg/300mL 600 300 300 300 mg In 300 ml @ 300 mls/ hr IV Q12HR [facility] Rx#: [id number] Meropenem 1 gm In 100 100 Dextrose 5% 100 ml @ 100 mls/hr IV Q12H [facility] Rx#: [id number] Norepinephrine 8 mg In 234.586 12.9 Sodium Chloride 0.9% 250 ml @ Per Protocol IV TITR [facility] Rx#:[id number] Pantoprazole 80 mg In 28.167 197.167 Sodium Chloride 0.9% 100 ml @ 10 mls/hr IV Q10H [facility] Rx#:[id number] Tube Feeding 840 Other 300 Output: Urine 2400 750 Stool 100 Active Medications: Current Medications Acetaminophen (Tylenol) 650 mg PO Q4HR PRN PRN Reason: Pain (Mild) Stop: 04/20/17 12:01 Last Admin: 02/21/17 09:54 Dose: 650 mg Acetaminophen/Hydrocodone Bitart ([place] 5mg/325mg) 1 tab PO Q6H PRN PRN Reason: PAIN Stop: 04/20/17 13:24 Albuterol/Ipratropium (Duoneb Neb) 3 ml HHN Q4HRT PRN PRN Reason: Wheezing Stop: 04/27/17 19:59 Last Admin: 02/28/17 03:18 Dose: 3 ml Albuterol/Ipratropium (Duoneb Neb) 3 ml HHN [id number] [facility] Stop: 04/27/17 19:59 Last Admin: 03/02/17 07:20 Dose: 3 ml Aspirin (Ecotrin) 81 mg PO DAILY [facility] Stop: 04/21/17 08:59 Last Admin: 03/02/17 09:00 Dose: 81 mg Chlorhexidine Gluconate (Peridex) 15 ml MM 0800,2000 [facility] Stop: 04/28/17 19:59 Last Admin: 03/02/17 08:09 Dose: 15 ml Diltiazem HCl (Cardizem) 5 mg IVP Q4H PRN PRN Reason: HR > 120 Stop: 04/27/17 19:59 Last Admin: 02/27/17 04:59 Dose: 5 mg Docusate Sodium (Colace) 100 mg PO BID PATRIA Stop: 04/20/17 16:59 Last Admin: 03/02/17 09:15 Dose: 100 mg Fluconazole (Diflucan) 100 mg PO DAILY PATRIA Stop: 03/08/17 08:59 Last Admin: 03/02/17 09:15 Dose: 100 mg Furosemide (Lasix) 40 mg PO DAILY PATRIA Stop: 04/21/17 08:59 Last Admin: 03/02/17 09:15 Dose: 40 mg Pantoprazole Sodium 80 mg/ (Sodium Chloride) 100 mls @ 10 mls/hr IV Q10H [facility] Stop: 04/20/17 08:59 Last Admin: 03/02/17 05:14 Dose: 10 mls/hr Linezolid (Zyvox) 600 mg in 300 mls @ 300 mls/hr IV Q12HR PATRIA Stop: 04/22/17 20:59 Last Infusion: 03/02/17 10:16 Dose: Infused Levofloxacin (Levaquin Pb) 250 mg in 50 mls @ 50 mls/hr IV Q24HR PATRIA Stop: 04/23/17 20:59 Last Infusion: 03/01/17 21:24 Dose: Infused Phenylephrine HCl 10 mg/ (Sodium Chloride) 250 mls @ 0 mls/hr IV TITR PATRIA; Per Protocol PRN Reason: Protocol Stop: 04/28/17 07:59 Norepinephrine Bitartrate 8 mg (/ Sodium Chloride) 258 mls @ 0 mls/hr IV TITR PATRIA; Per Protocol PRN Reason: Protocol Stop: 04/28/17 09:59 Last Titration: 03/02/17 08:00 Dose: 6 mcg/min, 11.61 mls/hr Meropenem 1 gm/ Dextrose 100 mls @ 100 mls/hr IV Q12H PATRIA Stop: 04/28/17 12:29 Last Infusion: 03/02/17 01:58 Dose: Infused Potassium Chloride/Dextrose/Sod Cl (D5-0.9ns W/Kcl 20meq) 1,000 mls @ 75 mls/ hr IV .[id number] PATRIA Stop: 04/30/17 14:41 Last Admin: 03/02/17 05:55 Dose: 75 mls/hr Insulin Aspart (Novolog Insulin Sliding Scale) 0 units SUBQ ACHS PATRIA PRN Reason: Protocol Stop: 04/20/17 16:29 Last Admin: 03/02/17 11:48 Dose: 2 units Mirtazapine (Remeron) 15 mg PO HS PATRIA PRN Reason: Protocol Stop: 04/26/17 20:59 Last Admin: 03/01/17 21:38 Dose: 15 mg Miscellaneous (Probiotic Screen) 1 ea MC PRN PRN PRN Reason: PROTOCOL Stop: 04/21/17 16:25 Morphine Sulfate (Morphine) 1 mg IVP Q3H PRN PRN Reason: Pain (Moderate) Stop: 04/20/17 01:59 Last Admin: 03/02/17 09:14 Dose: 1 mg Nitroglycerin (Nitrostat) 0.4 mg SL Q5MIN PRN PRN Reason: Chest Pain Stop: 04/20/17 12:01 Nystatin (Nystop) 100,000 units TP BID PRN PRN Reason: SKIN EXCORIATIONS Stop: 04/21/17 15:35 Last Admin: 03/02/17 10:00 Dose: 100,000 units Ondansetron HCl (Zofran) 4 mg IV Q6H PRN PRN Reason: Nausea Stop: 04/20/17 03:38 General: Alert, No acute distress, no Cooperative HEENT: Atraumatic, EOMI Neck: Supple, JVD, +2 carotid pulse wo bruit Cardiovascular: Regular rate, Normal S1, Normal S2 Lungs: Other (coarse rhonchi) Abdomen: Bowel sounds, Soft Extremities: no Edema Neurological: Sensation intact Skin: no Rash Psych/Mental Status: Mood NL - Procedures Procedures: Procedures Procedure Code Date INSERT EMERGENCY AIRWAY 49329 02/19/17 INSERTION OF ENDOTRACHEAL AIRWAY INTO [place], VIA OPENING [id number] 02/19/17 RESPIRATORY VENTILATION, 24-96 CONSECUTIVE HOURS [id number] 02/19/17 VENT MGMT INPAT INIT DAY 02/19/17 VENT MGMT INPAT SUBQ DAY 02/19/17 Assessment/Plan - Problem List Patient Problems: All Active Problems Acute kidney failure (Acute) 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
--- NOTE | 2017-03-02 14:14 | General Progress Note ---
Subjective - Review of Systems Service Date: 03/02/17 Subjective: sleeping, arousable, on vent Objective - Results Result Diagrams: 03/02/17 08:40 03/02/17 08:40 Recent Labs: Laboratory Last Values WBC 31.5 Th/cmm (4.8-10.8) H* 03/02/17 08:40 RBC 3.76 Mil/cmm (3.80-5.20) L 03/02/17 08:40 Hgb 10.7 gm/dL (12-16) L 03/02/17 08:40 Hct 32.3 % (41.0-60) L 03/02/17 08:40 MCV 86.0 fl (81-100) 03/02/17 08:40 MCH 28.5 pg (27.0-31.0) 03/02/17 08:40 MCHC Differential 33.1 pg (28.0-36.0) 03/02/17 08:40 RDW 13.2 % (11.5-20.0) 03/02/17 08:40 Plt Count 111 Th/cmm (150-400) L 03/02/17 08:40 MPV 7.6 fl 03/02/17 08:40 Neutrophils % PROJECT ESTIMATOR 02/25/17 04:50 Band Neutrophils % 10 % (0-10) 03/01/17 09:15 Lymphocytes % PROJECT ESTIMATOR 02/25/17 04:50 Monocytes % PROJECT ESTIMATOR 02/25/17 04:50 Eosinophils % PROJECT ESTIMATOR 02/25/17 04:50 Basophils % PROJECT ESTIMATOR 02/25/17 04:50 Neutrophils (Manual) 88 % (40-80) H 03/01/17 09:15 Lymphocytes 1 % (20-50) L 03/01/17 09:15 Monocytes 2 % (2-10) 02/28/17 06:20 Eosinophils 1 % (0-5) 03/01/17 09:15 Metamyelocytes 1 % (0-0) H 02/18/17 23:35 Hypochromia 1+ 02/18/17 23:35 Platelet Estimate ADEQUATE (NORMAL) 02/19/17 04:11 PT 13.9 SECONDS (9.5-11.5) H 03/01/17 09:15 INR 1.32 (0.5-1.4) 03/01/17 09:15 PTT (Actin FS) 53.1 SECONDS (26.0-38.0) H 03/01/17 09:15 Specimen Source ARTERIAL 02/28/17 09:33 Sample Site Left Radial 02/28/17 09:33 pH 7.50 (7.35-7.45) H 02/28/17 09:33 pCO2 24.0 mmHg (35.0-45.0) L* 02/28/17 09:33 pO2 169.0 mmHg (80.0-100.0) H 02/28/17 09:33 HCO3 22.7 mEq/L (20.0-26.0) 02/28/17 09:33 Base Excess 2.9 mEq/L (-3.0-3.0) 02/28/17 09:33 O2 Saturation 100.0 % (92.0-100.0) 02/28/17 09:33 Jorje Test Y 02/28/17 09:33 Vent Rate 12 02/28/17 09:33 Inspired O2 50 02/28/17 09:33 Tidal Volume 550 02/28/17 09:33 PEEP 5 02/28/17 09:33 Pressure (ins/psv/peep) N/A 02/28/17 09:33 Critical Value [place] 02/28/17 09:33 Sodium 125 mEq/L (136-145) L 03/02/17 08:40 Potassium 3.3 mEq/L (3.5-5.1) L 03/02/17 08:40 Chloride 96 mEq/L (98-107) L 03/02/17 08:40 Carbon Dioxide 19.3 mEq/L (21.0-31.0) L 03/02/17 08:40 Anion Gap 13.0 (7.0-16.0) 03/02/17 08:40 BUN 41 mg/dL (7-25) H 03/02/17 08:40 Creatinine 2.5 mg/dL (0.6-1.2) H 03/02/17 08:40 Est GFR ( Amer) 24.6 ml/min (>90) 03/02/17 08:40 Est GFR (Non-Af Amer) 20.3 ml/min 03/02/17 08:40 BUN/Creatinine Ratio 16.4 03/02/17 08:40 Glucose 153 mg/dL (70-105) H 03/02/17 08:40 POC Glucose 169 MG/DL (70 - 105) H 03/02/17 11:42 Hemoglobin A1c % 5.8 % (4.0-6.0) 02/22/17 10:38 Whole Bld Lactic Acid 2.40 mmol/L (0.60-1.99) H* 02/27/17 15:04 Calcium 7.6 mg/dL (8.6-10.3) L 03/02/17 08:40 Phosphorus 2.5 mg/dL (2.5-5.0) 03/01/17 09:15 Magnesium 2.1 mg/dL (1.9-2.7) 03/01/17 09:15 Total Bilirubin 0.6 mg/dL (0.3-1.0) 03/01/17 09:15 Direct Bilirubin 0.09 mg/dL (0.0-0.2) 02/18/17 23:35 AST 20 U/L (13-39) 03/01/17 09:15 ALT 6 U/L (7-52) L 03/01/17 09:15 Alkaline Phosphatase 56 U/L (34-104) 03/01/17 09:15 Ammonia 38 umol/L (16-53) 03/01/17 17:28 B-Natriuretic Peptide 220.0 pg/mL (5.0-100.0) H 02/22/17 10:38 Total Protein 4.8 gm/dL (6.0-8.3) L 03/01/17 09:15 Albumin 3.1 gm/dL (3.7-5.3) L 03/01/17 09:15 Globulin 1.7 gm/dL 03/01/17 09:15 Albumin/Globulin Ratio 1.8 (1.0-1.8) 03/01/17 09:15 Amylase 36 U/L (29-103) 02/18/17 23:35 Lipase 10 U/L (11-82) L 02/18/17 23:35 Vitamin B12 860 pg/mL (232-1245) 02/26/17 04:45 Free T4 1.04 ng/dL (0.82-1.77) 02/25/17 04:50 Free T3 0.7 pg/mL (2.0-4.4) L 02/25/17 04:50 TSH 0.84 uIU/ml (0.34-5.60) 02/25/17 04:50 Urine Source [place] 02/27/17 15:00 Urine Color YELLOW 02/27/17 15:00 Urine Clarity CLOUDY (CLEAR) H 02/27/17 15:00 Urine pH 5.5 (4.6 - 8.0) 02/27/17 15:00 Ur Specific [place] <= 1.005 (1.005-1.030) 02/27/17 15:00 Urine Protein TRACE mg/dL (NEGATIVE) 02/27/17 15:00 Urine Glucose (UA) NEGATIVE mg/dL (NEGATIVE) 02/27/17 15:00 Urine Ketones NEGATIVE mg/dL (NEGATIVE) 02/27/17 15:00 Urine Blood LARGE (NEGATIVE) H 02/27/17 15:00 Urine Nitrate NEGATIVE (NEGATIVE) 02/27/17 15:00 Urine Bilirubin NEGATIVE (NEGATIVE) 02/27/17 15:00 Urine Urobilinogen 0.2 E.U./dL (0.2 - 1.0) 02/27/17 15:00 Ur Leukocyte Esterase LARGE (NEGATIVE) H 02/27/17 15:00 Urine RBC 10-25 /hpf (0-5) H 02/27/17 15:00 Urine WBC >100 /hpf (0-5) H 02/27/17 15:00 Ur Epithelial Cells MODERATE /lpf (FEW) 02/27/17 15:00 Urine Bacteria MODERATE /hpf (NONE SEEN) H 02/27/17 15:00 Urine Yeast MODERATE /hpf (NONE SEEN) H 02/20/17 16:15 Blood Type A POSITIVE 02/27/17 15:04 Antibody Screen NEGATIVE 02/27/17 15:04 Crossmatch See Detail 02/27/17 15:04 - Physical Exam Vitals and I&O: Vital Signs Temp 96.3 F 03/02/17 12:00 Pulse 85 03/02/17 14:00 Resp 17 03/02/17 12:00 BP 131/60 03/02/17 14:00 Pulse Ox 100 03/02/17 14:00 Intake & Output 03/01/17 03/02/17 03/02/17 18:59 06:59 18:59 Intake Total 3886.949 8392.753 312.9 Output Total 2500 750 Balance -299.189 5983.753 312.9 Weight (lbs) 105.489 kg 105.46 kg Intake: Intake, IV Amount 061.608 9725.753 312.9 D5-0.9NS w/KCL 20mEq 1, 1000 000 ml @ 75 mls/hr IV . [id number] [facility] Rx#:[id number] Levofloxacin 250mg/50mL 50 250 mg In 50 ml @ 50 mls/ hr IV Q24HR [facility] Rx#: [id number] Linezolid 600mg/300mL 600 300 300 300 mg In 300 ml @ 300 mls/ hr IV Q12HR [facility] Rx#: [id number] Meropenem 1 gm In 100 100 Dextrose 5% 100 ml @ 100 mls/hr IV Q12H [facility] Rx#: [id number] Norepinephrine 8 mg In 234.586 12.9 Sodium Chloride 0.9% 250 ml @ Per Protocol IV TITR [facility] Rx#:[id number] Pantoprazole 80 mg In 28.167 197.167 Sodium Chloride 0.9% 100 ml @ 10 mls/hr IV Q10H [facility] Rx#:[id number] Tube Feeding 840 Other 300 Output: Urine 2400 750 Stool 100 Active Medications: Current Medications Acetaminophen (Tylenol) 650 mg PO Q4HR PRN PRN Reason: Pain (Mild) Stop: 04/20/17 12:01 Last Admin: 02/21/17 09:54 Dose: 650 mg Acetaminophen/Hydrocodone Bitart ([place] 5mg/325mg) 1 tab PO Q6H PRN PRN Reason: PAIN Stop: 04/20/17 13:24 Albuterol/Ipratropium (Duoneb Neb) 3 ml HHN Q4HRT PRN PRN Reason: Wheezing Stop: 04/27/17 19:59 Last Admin: 02/28/17 03:18 Dose: 3 ml Albuterol/Ipratropium (Duoneb Neb) 3 ml HHN [id number] [facility] Stop: 04/27/17 19:59 Last Admin: 03/02/17 07:20 Dose: 3 ml Aspirin (Ecotrin) 81 mg PO DAILY [facility] Stop: 04/21/17 08:59 Last Admin: 03/02/17 09:00 Dose: 81 mg Chlorhexidine Gluconate (Peridex) 15 ml MM 08,1999 PATRIA Stop: 04/28/17 19:59 Last Admin: 03/02/17 08:09 Dose: 15 ml Diltiazem HCl (Cardizem) 5 mg IVP Q4H PRN PRN Reason: HR > 120 Stop: 04/27/17 19:59 Last Admin: 02/27/17 04:59 Dose: 5 mg Docusate Sodium (Colace) 100 mg PO BID PATRIA Stop: 04/20/17 16:59 Last Admin: 03/02/17 09:15 Dose: 100 mg Fluconazole (Diflucan) 100 mg PO DAILY [facility] Stop: 03/08/17 08:59 Last Admin: 03/02/17 09:15 Dose: 100 mg Furosemide (Lasix) 40 mg PO DAILY [facility] Stop: 04/21/17 08:59 Last Admin: 03/02/17 09:15 Dose: 40 mg Pantoprazole Sodium 80 mg/ (Sodium Chloride) 100 mls @ 10 mls/hr IV Q10H PATRIA Stop: 04/20/17 08:59 Last Admin: 03/02/17 05:14 Dose: 10 mls/hr Linezolid (Zyvox) 600 mg in 300 mls @ 300 mls/hr IV Q12HR [facility] Stop: 04/22/17 20:59 Last Infusion: 03/02/17 10:16 Dose: Infused Levofloxacin (Levaquin Pb) 250 mg in 50 mls @ 50 mls/hr IV Q24HR PATRIA Stop: 04/23/17 20:59 Last Infusion: 03/01/17 21:24 Dose: Infused Phenylephrine HCl 10 mg/ (Sodium Chloride) 250 mls @ 0 mls/hr IV TITR PTARIA; Per Protocol PRN Reason: Protocol Stop: 04/28/17 07:59 Norepinephrine Bitartrate 8 mg (/ Sodium Chloride) 258 mls @ 0 mls/hr IV TITR PATRIA; Per Protocol PRN Reason: Protocol Stop: 04/28/17 09:59 Last Titration: 03/02/17 08:00 Dose: 6 mcg/min, 11.61 mls/hr Meropenem 1 gm/ Dextrose 100 mls @ 100 mls/hr IV Q12H [facility] Stop: 04/28/17 12:29 Last Admin: 03/02/17 13:37 Dose: 100 mls/hr Potassium Chloride/Dextrose/Sod Cl (D5-0.9ns W/Kcl 20meq) 1,000 mls @ 75 mls/ hr IV .[id number] PATRIA Stop: 04/30/17 14:41 Last Admin: 03/02/17 05:55 Dose: 75 mls/hr Insulin Aspart (Novolog Insulin Sliding Scale) 0 units SUBQ ACHS PATRIA PRN Reason: Protocol Stop: 04/20/17 16:29 Last Admin: 03/02/17 11:48 Dose: 2 units Mirtazapine (Remeron) 15 mg PO HS PATRIA PRN Reason: Protocol Stop: 04/26/17 20:59 Last Admin: 03/01/17 21:38 Dose: 15 mg Miscellaneous (Probiotic Screen) 1 ea MC PRN PRN PRN Reason: PROTOCOL Stop: 04/21/17 16:25 Morphine Sulfate (Morphine) 1 mg IVP Q3H PRN PRN Reason: Pain (Moderate) Stop: 04/20/17 01:59 Last Admin: 03/02/17 09:14 Dose: 1 mg Nitroglycerin (Nitrostat) 0.4 mg SL Q5MIN PRN PRN Reason: Chest Pain Stop: 04/20/17 12:01 Nystatin (Nystop) 100,000 units TP BID PRN PRN Reason: SKIN EXCORIATIONS Stop: 04/21/17 15:35 Last Admin: 03/02/17 10:00 Dose: 100,000 units Ondansetron HCl (Zofran) 4 mg IV Q6H PRN PRN Reason: Nausea Stop: 04/20/17 03:38 General: Alert, No acute distress, no Cooperative HEENT: Atraumatic, EOMI Neck: Supple, JVD, +2 carotid pulse wo bruit Cardiovascular: Regular rate, Normal S1, Normal S2 Lungs: Other (coarse rhonchi) Abdomen: Bowel sounds, Soft Extremities: no Edema Neurological: Sensation intact Skin: no Rash Psych/Mental Status: Mood NL - Procedures Procedures: Procedures Procedure Code Date INSERT EMERGENCY AIRWAY 79783 02/19/17 INSERTION OF ENDOTRACHEAL AIRWAY INTO [place], VIA OPENING [id number] 02/19/17 RESPIRATORY VENTILATION, 24-96 CONSECUTIVE HOURS [id number] 02/19/17 VENT MGMT INPAT IN DAY 02/19/17 VENT MGMT INPAT SUBQ DAY 02/19/17 Assessment/Plan - Problem List Patient Problems: All Active Problems Acute kidney failure (Acute) 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 Azotemia (Acute) R79.89 Bradycardia (Acute) R00.1 COPD (chronic obstructive pulmonary disease) (Acute) Cardiomegaly (Acute) I51.7 Chest pain (Acute) R07.9 Decubitus ulcer of buttock, 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 - Assessment Assessment: SOHAIL on CKD Acute resp failure on vent 2nd CHF, HAP, possible SOFIE, Exacerbation COPD Shock Sepsis DJD Type 2 DM GERD SOFIE Hyponatremia S/p [place] Thacker - Plan Plan: Lab - Result Diagrams 03/01/17 09:15 03/01/17 09:15 Current Medications Acetaminophen (Tylenol) 650 mg PO Q4HR PRN PRN Reason: Pain (Mild) Stop: 04/20/17 12:01 Last Admin: 02/21/17 09:54 Dose: 650 mg Acetaminophen/Hydrocodone Bitart ([place] 5mg/325mg) 1 tab PO Q6H PRN PRN Reason: PAIN Stop: 04/20/17 13:24 Albuterol/Ipratropium (Duoneb Neb) 3 ml HHN Q4HRT PRN PRN Reason: Wheezing Stop: 04/27/17 19:59 Last Admin: 02/28/17 03:18 Dose: 3 ml Albuterol/Ipratropium (Duoneb Neb) 3 ml HHN [id number] PATRIA Stop: 04/27/17 19:59 Last Admin: 03/01/17 13:49 Dose: 3 ml Aspirin (Ecotrin) 81 mg PO DAILY [facility] Stop: 04/21/17 08:59 Last Admin: 03/01/17 09:30 Dose: Not Given Chlorhexidine Gluconate (Peridex) 15 ml MM 0800,2000 [facility] Stop: 04/28/17 19:59 Last Admin: 03/01/17 08:30 Dose: 15 ml Diltiazem HCl (Cardizem) 5 mg IVP Q4H PRN PRN Reason: HR > 120 Stop: 04/27/17 19:59 Last Admin: 02/27/17 04:59 Dose: 5 mg Docusate Sodium (Colace) 100 mg PO BID [facility] Stop: 04/20/17 16:59 Last Admin: 03/01/17 09:31 Dose: Not Given Fluconazole (Diflucan) 100 mg PO DAILY [facility] Stop: 03/08/17 08:59 Last Admin: 03/01/17 09:31 Dose: Not Given Furosemide (Lasix) 40 mg PO DAILY [facility] Stop: 04/21/17 08:59 Last Admin: 03/01/17 09:31 Dose: Not Given Pantoprazole Sodium 80 mg/ (Sodium Chloride) 100 mls @ 10 mls/hr IV Q10H [facility] Stop: 04/20/17 08:59 Last Admin: 03/01/17 09:31 Dose: 10 mls/hr Linezolid (Zyvox) 600 mg in 300 mls @ 300 mls/hr IV Q12HR [facility] Stop: 04/22/17 20:59 Last Infusion: 03/01/17 10:00 Dose: Infused Levofloxacin (Levaquin Pb) 250 mg in 50 mls @ 50 mls/hr IV Q24HR [facility] Stop: 04/23/17 20:59 Last Infusion: 02/28/17 21:17 Dose: Infused Phenylephrine HCl 10 mg/ (Sodium Chloride) 250 mls @ 0 mls/hr IV TITR PATRIA; Per Protocol PRN Reason: Protocol Stop: 04/28/17 07:59 Norepinephrine Bitartrate 8 mg (/ Sodium Chloride) 258 mls @ 0 mls/hr IV TITR PATRIA; Per Protocol PRN Reason: Protocol Stop: 04/28/17 09:59 Last Titration: 03/01/17 06:31 Dose: 6 mcg/min, 11.61 mls/hr Meropenem 1 gm/ Dextrose 100 mls @ 100 mls/hr IV Q12H [facility] Stop: 04/28/17 12:29 Last Infusion: 03/01/17 13:00 Dose: Infused Potassium Chloride/Dextrose/Sod Cl (D5-0.9ns W/Kcl 20meq) 1,000 mls @ 75 mls/ hr IV .[id number] [facility] Stop: 04/30/17 14:41 Insulin Aspart (Novolog Insulin Sliding Scale) 0 units SUBQ ACHS PATRIA PRN Reason: Protocol Stop: 04/20/17 16:29 Last Admin: 03/01/17 12:01 Dose: 4 units Mirtazapine (Remeron) 15 mg PO HS PATRIA PRN Reason: Protocol Stop: 04/26/17 20:59 Last Admin: 02/28/17 21:23 Dose: 15 mg Miscellaneous (Probiotic Screen) 1 ea MC PRN PRN PRN Reason: PROTOCOL Stop: 04/21/17 16:25 Morphine Sulfate (Morphine) 1 mg IVP Q3H PRN PRN Reason: Pain (Moderate) Stop: 04/20/17 01:59 Last Admin: 03/01/17 09:28 Dose: 1 mg Nitroglycerin (Nitrostat) 0.4 mg SL Q5MIN PRN PRN Reason: Chest Pain Stop: 04/20/17 12:01 Nystatin (Nystop) 100,000 units TP BID PRN PRN Reason: SKIN EXCORIATIONS Stop: 04/21/17 15:35 Last Admin: 02/21/17 11:46 Dose: 100,000 units Ondansetron HCl (Zofran) 4 mg IV Q6H PRN PRN Reason: Nausea Stop: 04/20/17 03:38 Spironolactone (Aldactone) 50 mg PO BID [facility] Stop: 04/27/17 08:59 Last Admin: 03/01/17 09:29 Dose: Not Given Na up to 125 Cr. down to 2.5 UOP improved to nam 2L CXR still w/ CHF, continue Lasix po DC spironolactone still on Levo f/u electorlytes, cbc, CXR start IVF D5NS @ 70 ml/hr w/ KCL add albumin Nutritional Asmnt/Malnutr-PDOC - Dietary Evaluation Malnutrition Findings (Please click <Entered> for more info): Nutritional Asmnt/Malnutrition Start: 02/21/17 18: 20 Text: Status: Complete Freq: Document 02/21/17 18:21 [email or web address] (Rec: 02/21/17 18:32 LCHEN [email or web address]) Nutritional Asmnt/Malnutrition Patient General Information Nutritional Screening High Risk Consult Diagnosis gastric outlet obstruction Pertinent Medical Hx/Surgical Hx HTN, OA, DM, GERD Subjective Information Pt seen sleeping at the time of visit, attempted x 2. Spoke with RN, pt consumed 50% of breakfast and only the soup of lunch today, not much appetite, no complain of N/V. Pt will be NPO from midnight for GI exam tommorrow. Current Diet Order/ Nutrition Support no added salt 4gm, CCHO, no eggs, banana and cereal in morning Pertinent Medications colace, lasix, novolog, levaquin, piperacillin Pertinent Labs 02/20 Na 137, K 4.5, Cl 104, BUN 55, Cr 1.6, Glucose 137, POC 126-199 since admit, Ca 8. 3 Nutritional Hx/Data Height 1.57 m Height (Calculated Centimeters) 157.5 Current Weight (lbs) 97.023 kg Weight (Calculated Kilograms) 97.0 Weight (Calculated Grams) 16688.4 [place] Body Weight 110 % [place] Body Weight 194 Body Mass Index (BMI) 39.1 Weight Status Obese GI Symptoms GI Symptoms None Last BM none Difficult in: None Skin Integrity/Comment: multiple maceration, abrasion to right/left medial thigh Current %PO Poor (25-49%) Estimated Nutritional Goals BEE in Kcals: Adj wt of IBW Calories/Kcals/Kg 27-32 Kcals Calculated Protein: Adj wt of IBW Protein g/k-1.2 Protein Calculated 62-74 Fluid: ml Nutritional Problem 1. Problem Problem inadequate PO intake Etiology poor appetite Signs/Symptoms: PO intake 25-50% Malnutrition Alert Protein-Calorie Malnutrition N/A Is there a minimum of two criteria No selected? Query Text:Check all the applicable criteria. A minimum of two criteria are recommended for diagnosis of either severe or non-severe malnutrition. Intervention/Recommendation Comments 1. Continue with current diet as ordered. 2. Monitor PO intake, GI symptons, wt, labs and skin integrity 3. F/U as high risk in 2-3 days, 02/23-02/24 Expected Outcomes/Goals Expected Outcomes/Goals 1. PO intake to meet at least 75% of nutritional needs. 2. Wt stability, skin to remain intact, labs to improve
--- NOTE | 2017-03-02 16:18 | General Progress Note ---
Subjective - Review of Systems Events since last encounter: on vent no distress Objective - Results Result Diagrams: 03/02/17 08:40 03/02/17 08:40 Recent Labs: Laboratory Last Values WBC 31.5 Th/cmm (4.8-10.8) H* 03/02/17 08:40 RBC 3.76 Mil/cmm (3.80-5.20) L 03/02/17 08:40 Hgb 10.7 gm/dL (12-16) L 03/02/17 08:40 Hct 32.3 % (41.0-60) L 03/02/17 08:40 MCV 86.0 fl (81-100) 03/02/17 08:40 MCH 28.5 pg (27.0-31.0) 03/02/17 08:40 MCHC Differential 33.1 pg (28.0-36.0) 03/02/17 08:40 RDW 13.2 % (11.5-20.0) 03/02/17 08:40 Plt Count 111 Th/cmm (150-400) L 03/02/17 08:40 MPV 7.6 fl 03/02/17 08:40 Neutrophils % [employer] CREW LEADER 02/25/17 04:50 Band Neutrophils % 10 % (0-10) 03/01/17 09:15 Lymphocytes % [employer]W LEADER 02/25/17 04:50 Monocytes % SUPPRESS[employer] CREW LEADER 02/25/17 04:50 Eosinophils % SUPPRESSION CREW LEADER 02/25/17 04:50 Basophils % SUPPRESSION CREW LEADER 02/25/17 04:50 Neutrophils (Manual) 88 % (40-80) H 03/01/17 09:15 Lymphocytes 1 % (20-50) L 03/01/17 09:15 Monocytes 2 % (2-10) 02/28/17 06:20 Eosinophils 1 % (0-5) 03/01/17 09:15 Metamyelocytes 1 % (0-0) H 02/18/17 23:35 Hypochromia 1+ 02/18/17 23:35 Platelet Estimate ADEQUATE (NORMAL) 02/19/17 04:11 PT 13.9 SECONDS (9.5-11.5) H 03/01/17 09:15 INR 1.32 (0.5-1.4) 03/01/17 09:15 PTT (Actin FS) 53.1 SECONDS (26.0-38.0) H 03/01/17 09:15 Specimen Source ARTERIAL 02/28/17 09:33 Sample Site Left Radial 02/28/17 09:33 pH 7.50 (7.35-7.45) H 02/28/17 09:33 pCO2 24.0 mmHg (35.0-45.0) L* 02/28/17 09:33 pO2 169.0 mmHg (80.0-100.0) H 02/28/17 09:33 HCO3 22.7 mEq/L (20.0-26.0) 02/28/17 09:33 Base Excess 2.9 mEq/L (-3.0-3.0) 02/28/17 09:33 O2 Saturation 100.0 % (92.0-100.0) 02/28/17 09:33 Jorje Test Y 02/28/17 09:33 Vent Rate 12 02/28/17 09:33 Inspired O2 50 02/28/17 09:33 Tidal Volume 550 02/28/17 09:33 PEEP 5 02/28/17 09:33 Pressure (ins/psv/peep) N/A 02/28/17 09:33 Critical Value [place] 02/28/17 09:33 Sodium 125 mEq/L (136-145) L 03/02/17 08:40 Potassium 3.3 mEq/L (3.5-5.1) L 03/02/17 08:40 Chloride 96 mEq/L (98-107) L 03/02/17 08:40 Carbon Dioxide 19.3 mEq/L (21.0-31.0) L 03/02/17 08:40 Anion Gap 13.0 (7.0-16.0) 03/02/17 08:40 BUN 41 mg/dL (7-25) H 03/02/17 08:40 Creatinine 2.5 mg/dL (0.6-1.2) H 03/02/17 08:40 Est GFR ( Amer) 24.6 ml/min (>90) 03/02/17 08:40 Est GFR (Non-Af Amer) 20.3 ml/min 03/02/17 08:40 BUN/Creatinine Ratio 16.4 03/02/17 08:40 Glucose 153 mg/dL (70-105) H 03/02/17 08:40 POC Glucose 169 MG/DL (70 - 105) H 03/02/17 11:42 Hemoglobin A1c % 5.8 % (4.0-6.0) 02/22/17 10:38 Whole Bld Lactic Acid 2.40 mmol/L (0.60-1.99) H* 02/27/17 15:04 Calcium 7.6 mg/dL (8.6-10.3) L 03/02/17 08:40 Phosphorus 2.5 mg/dL (2.5-5.0) 03/01/17 09:15 Magnesium 2.1 mg/dL (1.9-2.7) 03/01/17 09:15 Total Bilirubin 0.6 mg/dL (0.3-1.0) 03/01/17 09:15 Direct Bilirubin 0.09 mg/dL (0.0-0.2) 02/18/17 23:35 AST 20 U/L (13-39) 03/01/17 09:15 ALT 6 U/L (7-52) L 03/01/17 09:15 Alkaline Phosphatase 56 U/L (34-104) 03/01/17 09:15 Ammonia 38 umol/L (16-53) 03/01/17 17:28 B-Natriuretic Peptide 220.0 pg/mL (5.0-100.0) H 02/22/17 10:38 Total Protein 4.8 gm/dL (6.0-8.3) L 03/01/17 09:15 Albumin 3.1 gm/dL (3.7-5.3) L 03/01/17 09:15 Globulin 1.7 gm/dL 03/01/17 09:15 Albumin/Globulin Ratio 1.8 (1.0-1.8) 03/01/17 09:15 Amylase 36 U/L (29-103) 02/18/17 23:35 Lipase 10 U/L (11-82) L 02/18/17 23:35 Vitamin B12 860 pg/mL (232-1245) 02/26/17 04:45 Free T4 1.04 ng/dL (0.82-1.77) 02/25/17 04:50 Free T3 0.7 pg/mL (2.0-4.4) L 02/25/17 04:50 TSH 0.84 uIU/ml (0.34-5.60) 02/25/17 04:50 Urine Source [place] 02/27/17 15:00 Urine Color YELLOW 02/27/17 15:00 Urine Clarity CLOUDY (CLEAR) H 02/27/17 15:00 Urine pH 5.5 (4.6 - 8.0) 02/27/17 15:00 Ur Specific [place] <= 1.005 (1.005-1.030) 02/27/17 15:00 Urine Protein TRACE mg/dL (NEGATIVE) 02/27/17 15:00 Urine Glucose (UA) NEGATIVE mg/dL (NEGATIVE) 02/27/17 15:00 Urine Ketones NEGATIVE mg/dL (NEGATIVE) 02/27/17 15:00 Urine Blood LARGE (NEGATIVE) H 02/27/17 15:00 Urine Nitrate NEGATIVE (NEGATIVE) 02/27/17 15:00 Urine Bilirubin NEGATIVE (NEGATIVE) 02/27/17 15:00 Urine Urobilinogen 0.2 E.U./dL (0.2 - 1.0) 02/27/17 15:00 Ur Leukocyte Esterase LARGE (NEGATIVE) H 02/27/17 15:00 Urine RBC 10-25 /hpf (0-5) H 02/27/17 15:00 Urine WBC >100 /hpf (0-5) H 02/27/17 15:00 Ur Epithelial Cells MODERATE /lpf (FEW) 02/27/17 15:00 Urine Bacteria MODERATE /hpf (NONE SEEN) H 02/27/17 15:00 Urine Yeast MODERATE /hpf (NONE SEEN) H 02/20/17 16:15 Blood Type A POSITIVE 02/27/17 15:04 Antibody Screen NEGATIVE 02/27/17 15:04 Crossmatch See Detail 02/27/17 15:04 - Physical Exam Vitals and I&O: Vital Signs Temp 96.3 F 03/02/17 12:00 Pulse 84 03/02/17 16:11 Resp 18 03/02/17 15:00 BP 109/49 03/02/17 15:45 Pulse Ox 100 03/02/17 16:11 Intake & Output 03/01/17 03/02/17 03/02/17 18:59 06:59 18:59 Intake Total 6448.494 0409.753 412.9 Output Total 2500 750 Balance -317.139 3485.753 412.9 Weight (lbs) 105.489 kg 105.46 kg Intake: Intake, IV Amount 347.937 8176.753 412.9 D5-0.9NS w/KCL 20mEq 1, 1000 000 ml @ 75 mls/hr IV . [id number] [facility] Rx#:[id number] Levofloxacin 250mg/50mL 50 250 mg In 50 ml @ 50 mls/ hr IV Q24HR [facility] Rx#: [id number] Linezolid 600mg/300mL 600 300 300 300 mg In 300 ml @ 300 mls/ hr IV Q12HR [facility] Rx#: [id number] Meropenem 1 gm In 100 100 Dextrose 5% 100 ml @ 100 mls/hr IV Q12H [facility] Rx#: [id number] Norepinephrine 8 mg In 234.586 12.9 Sodium Chloride 0.9% 250 ml @ Per Protocol IV TITR [facility] Rx#:[id number] Pantoprazole 80 mg In 28.167 197.167 100 Sodium Chloride 0.9% 100 ml @ 10 mls/hr IV Q10H [facility] Rx#:[id number] Tube Feeding 840 Other 300 Output: Urine 2400 750 Stool 100 Active Medications: Current Medications Acetaminophen (Tylenol) 650 mg PO Q4HR PRN PRN Reason: Pain (Mild) Stop: 04/20/17 12:01 Last Admin: 02/21/17 09:54 Dose: 650 mg Acetaminophen/Hydrocodone Bitart ([place] 5mg/325mg) 1 tab PO Q6H PRN PRN Reason: PAIN Stop: 04/20/17 13:24 Albuterol/Ipratropium (Duoneb Neb) 3 ml HHN Q4HRT PRN PRN Reason: Wheezing Stop: 04/27/17 19:59 Last Admin: 02/28/17 03:18 Dose: 3 ml Albuterol/Ipratropium (Duoneb Neb) 3 ml HHN [id number] Stop: 04/27/17 19:59 Last Admin: 03/02/17 16:11 Dose: 3 ml Aspirin (Ecotrin) 81 mg PO DAILY [facility] Stop: 04/21/17 08:59 Last Admin: 03/02/17 09:00 Dose: 81 mg Chlorhexidine Gluconate (Peridex) 15 ml MM 08,1999 [facility] Stop: 04/28/17 19:59 Last Admin: 03/02/17 08:09 Dose: 15 ml Diltiazem HCl (Cardizem) 5 mg IVP Q4H PRN PRN Reason: HR > 120 Stop: 04/27/17 19:59 Last Admin: 02/27/17 04:59 Dose: 5 mg Docusate Sodium (Colace) 100 mg PO BID [facility] Stop: 04/20/17 16:59 Last Admin: 03/02/17 09:15 Dose: 100 mg Fluconazole (Diflucan) 100 mg PO DAILY [facility] Stop: 03/08/17 08:59 Last Admin: 03/02/17 09:15 Dose: 100 mg Furosemide (Lasix) 40 mg PO DAILY [facility] Stop: 04/21/17 08:59 Last Admin: 03/02/17 09:15 Dose: 40 mg Pantoprazole Sodium 80 mg/ (Sodium Chloride) 100 mls @ 10 mls/hr IV Q10H [facility] Stop: 04/20/17 08:59 Last Admin: 03/02/17 15:37 Dose: 10 mls/hr Linezolid (Zyvox) 600 mg in 300 mls @ 300 mls/hr IV Q12HR [facility] Stop: 04/22/17 20:59 Last Infusion: 03/02/17 10:16 Dose: Infused Levofloxacin (Levaquin Pb) 250 mg in 50 mls @ 50 mls/hr IV Q24HR [facility] Stop: 04/23/17 20:59 Last Infusion: 03/01/17 21:24 Dose: Infused Phenylephrine HCl 10 mg/ (Sodium Chloride) 250 mls @ 0 mls/hr IV TITR [facility]; Per Protocol PRN Reason: Protocol Stop: 04/28/17 07:59 Norepinephrine Bitartrate 8 mg (/ Sodium Chloride) 258 mls @ 0 mls/hr IV TITR [facility]; Per Protocol PRN Reason: Protocol Stop: 04/28/17 09:59 Last Titration: 03/02/17 08:00 Dose: 6 mcg/min, 11.61 mls/hr Meropenem 1 gm/ Dextrose 100 mls @ 100 mls/hr IV Q12H [facility] Stop: 04/28/17 12:29 Last Admin: 03/02/17 13:37 Dose: 100 mls/hr Potassium Chloride/Dextrose/Sod Cl (D5-0.9ns W/Kcl 20meq) 1,000 mls @ 75 mls/ hr IV .[id number] [facility] Stop: 04/30/17 14:41 Last Admin: 03/02/17 05:55 Dose: 75 mls/hr Insulin Aspart (Novolog Insulin Sliding Scale) 0 units SUBQ ACHS [facility] PRN Reason: Protocol Stop: 04/20/17 16:29 Last Admin: 03/02/17 11:48 Dose: 2 units Mirtazapine (Remeron) 15 mg PO HS [facility] PRN Reason: Protocol Stop: 04/26/17 20:59 Last Admin: 03/01/17 21:38 Dose: 15 mg Miscellaneous (Probiotic Screen) 1 ea PRN PRN PRN Reason: PROTOCOL Stop: 04/21/17 16:25 Miscellaneous (Communication Order) 1 ea PRN [facility] Stop: 05/01/17 14:14 Morphine Sulfate (Morphine) 1 mg IVP Q3H PRN PRN Reason: Pain (Moderate) Stop: 04/20/17 01:59 Last Admin: 03/02/17 09:14 Dose: 1 mg Nitroglycerin (Nitrostat) 0.4 mg SL Q5MIN PRN PRN Reason: Chest Pain Stop: 04/20/17 12:01 Nystatin (Nystop) 100,000 units TP BID PRN PRN Reason: SKIN EXCORIATIONS Stop: 04/21/17 15:35 Last Admin: 03/02/17 10:00 Dose: 100,000 units Ondansetron HCl (Zofran) 4 mg IV Q6H PRN PRN Reason: Nausea Stop: 04/20/17 03:38 General: Alert, No acute distress, no Cooperative HEENT: Atraumatic, EOMI Neck: Supple, JVD, +2 carotid pulse wo bruit Cardiovascular: Regular rate, Normal S1, Normal S2 Lungs: Other (coarse rhonchi) Abdomen: Bowel sounds, Soft Extremities: no Edema Neurological: Sensation intact Skin: no Rash Psych/Mental Status: Mood NL - Procedures Procedures: Procedures Procedure Code Date INSERT EMERGENCY AIRWAY 81860 02/19/17 INSERTION OF ENDOTRACHEAL AIRWAY INTO [place], VIA OPENING [id number] 02/19/17 RESPIRATORY VENTILATION, 24-96 CONSECUTIVE HOURS [id number] 02/19/17 VENT MGMT INPAT INIT DAY 02/19/17 VENT MGMT INPAT SUBQ DAY 02/19/17 Assessment/Plan - Problem List Patient Problems: All Active Problems Acute kidney failure (Acute) 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 Azotemia (Acute) R79.89 Bradycardia (Acute) R00.1 COPD (chronic obstructive pulmonary disease) (Acute) Cardiomegaly (Acute) I51.7 Chest pain (Acute) R07.9 Decubitus ulcer of buttock, 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 Nutritional Asmnt/Malnutr-PDOC - Dietary Evaluation Malnutrition Findings (Please click <Entered> for more info): Nutritional Asmnt/Malnutrition Start: 02/21/17 18: 20 Text: Status: Complete Freq: Document 02/21/17 18:21 LCHENG (Rec: 02/21/17 18:32 LCHENG [id number]) Nutritional Asmnt/Malnutrition Patient General Information Nutritional Screening High Risk Consult Diagnosis gastric outlet obstruction Pertinent Medical Hx/Surgical Hx HTN, OA, DM, GERD Subjective Information Pt seen sleeping at the time of visit, attempted x 2. Spoke with RN, pt consumed 50% of breakfast and only the soup of lunch today, not much appetite, no complain of N/V. Pt will be NPO from midnight for GI exam tommorrow. Current Diet Order/ Nutrition Support no added salt 4gm, CCHO, no eggs, banana and cereal in morning Pertinent Medications colace, lasix, novolog, levaquin, piperacillin Pertinent Labs 02/20 Na 137, K 4.5, Cl 104, BUN 55, Cr 1.6, Glucose 137, POC 126-199 since admit, Ca 8. 3 Nutritional Hx/Data Height 1.57 m Height (Calculated Centimeters) 157.5 Current Weight (lbs) 97.023 kg Weight (Calculated Kilograms) 97.0 Weight (Calculated Grams) 42377.4 [place] Body Weight 110 % [place] Body Weight 194 Body Mass Index (BMI) 39.1 Weight Status Obese GI Symptoms GI Symptoms None Last BM none Difficult in: None Skin Integrity/Comment: multiple maceration, abrasion to right/left medial thigh Current %PO Poor (25-49%) Estimated Nutritional Goals BEE in Kcals: Adj wt of IBW Calories/Kcals/Kg 27-32 Kcals Calculated Protein: Adj wt of IBW Protein g/k-1.2 Protein Calculated 62-74 Fluid: ml Nutritional Problem 1. Problem Problem inadequate PO intake Etiology poor appetite Signs/Symptoms: PO intake 25-50% Malnutrition Alert Protein-Calorie Malnutrition N/A Is there a minimum of two criteria No selected? Query Text:Check all the applicable criteria. A minimum of two criteria are recommended for diagnosis of either severe or non-severe malnutrition. Intervention/Recommendation Comments 1. Continue with current diet as ordered. 2. Monitor PO intake, GI symptons, wt, labs and skin integrity 3. F/U as high risk in 2-3 days, 02/23-02/24 Expected Outcomes/Goals Expected Outcomes/Goals 1. PO intake to meet at least 75% of nutritional needs. 2. Wt stability, skin to remain intact, labs to improve
[2017-03-02] MEDS: Levofloxacin 250 mg/50 mL Premix Bag IV SCH (20:21)
[2017-03-02] MEDS ORDERED: ALBUMIN 25% IV SCH (21:00)
[2017-03-03] MEDS: Pantoprazole 80 MG in Sodium Chloride 0.9% 100 ML IV SCH ×2 (00:21→10:59)
[2017-03-03] MEDS: INSULIN ASPART SLIDING SCALE 100 UNITS/ML UNIT SUBQ SCH ×3 (06:55→17:22)
[2017-03-03] MEDS: Albuterol/Ipratropium Neb 3 ML AERS HHN SCH ×3 (07:05→18:59)
[2017-03-03 07:08] LABS: BASOPHILE ABSOLUTE 0.1 Th/cumm (0-0.2); HEMATOCRIT 30.9 % (41.0-60); HEMOGLOBIN 10.4 gm/dL (12-16); MEAN CELL VOLUME 86.2 fl (81-100); MEAN CORPUSCULAR HGB CONC 33.6 pg (28.0-36.0); MEAN PLATELET VOLUME 7.9 fl; NEUTROPHILE ABSOLUTE 25.3 Th/cmm (1.8-8.0); RED BLOOD COUNT 3.58 Mil/cmm (3.80-5.20); RED CELL DISTRIBUTION WIDTH 13.4 % (11.5-20.0)
[2017-03-03 07:43] LABS: PLATELET COUNT 80 Th/cmm (150-400); WHITE BLOOD COUNT 28.4 Th/cmm (4.8-10.8)
[2017-03-03 07:47] LABS: ANION GAP 14.7 (7.0-16.0); CALCIUM SERUM 7.7 mg/dL (8.6-10.3); CARBON DIOXIDE 16.9 mEq/L (21.0-31.0); CREATININE - SERUM 2.3 mg/dL (0.6-1.2); GFR NON AFRICAN-AMERICAN 22.3 ml/min; POTASSIUM SERUM 3.6 mEq/L (3.5-5.1)
[2017-03-03] MEDS: Chlorhexidine Gluconate 0.12% 15mL Mouthwash MM SCH ×2 (08:14→23:31)
--- NOTE | 2017-03-03 08:41 | Diagnostic Imaging Report ---
Portable chest x-ray HISTORY: Shortness of breath Compared with prior exam of March 02, 2017, there is persistent marked cardiomegaly. Pulmonary vascular redistribution consistent cardiac decompensation. Hazy bilateral infiltrates along with evidence of a small right pleural effusion. The changes are consistent with congestive heart failure. An endotracheal tube tip is approximately 4.0 cm above the abhishek. IMPRESSION: 1. Little change with persistent cardiomegaly and findings consistent with congestive heart failure and mild pulmonary edema.
[2017-03-03 08:43] LABS: BAND NEUTROPHILE 5 % (0-10); EOSINOPHIL 4 % (0-5); LYMPHOCYTE 4 % (20-50); MONOCYTE 1 % (2-10); NEUTROPHILS 86 % (40-80); PLATELET ESTIMATE DECREASED PLATELETS (NORMAL); TOTAL CELLS COUNTED 100
[2017-03-03] MEDS: Multivitamin w/ Minerals Tab PO SCH (08:48)
[2017-03-03] MEDS: Linezolid 600mg/300mL 600 MG/300 ML BAG IV SCH ×2 (08:48→23:31)
[2017-03-03] MEDS: D5-0.9NS w/KCL 20mEq 1,000 ML IV SCH (12:34)
--- NOTE | 2017-03-03 13:46 | GI Progress Note ---
Subjective - Review of Systems Subjective: NO EVENTS Objective - Results Result Diagrams: 03/03/17 05:55 03/03/17 05:55 Recent Labs: Laboratory Last Values WBC 28.4 Th/cmm (4.8-10.8) H* 03/03/17 05:55 RBC 3.58 Mil/cmm (3.80-5.20) L 03/03/17 05:55 Hgb 10.4 gm/dL (12-16) L 03/03/17 05:55 Hct 30.9 % (41.0-60) L 03/03/17 05:55 MCV 86.2 fl (81-100) 03/03/17 05:55 MCH 29.0 pg (27.0-31.0) 03/03/17 05:55 MCHC Differential 33.6 pg (28.0-36.0) 03/03/17 05:55 RDW 13.4 % (11.5-20.0) 03/03/17 05:55 Plt Count 80 Th/cmm (150-400) L D 03/03/17 05:55 MPV 7.9 fl 03/03/17 05:55 Neutrophils % [employer] EXECUTIVE 02/25/17 04:50 Band Neutrophils % 5 % (0-10) 03/03/17 05:55 Lymphocytes % [employer]OUNT EXECUTIVE 02/25/17 04:50 Monocytes % EN[employer]OUNT EXECUTIVE 02/25/17 04:50 Eosinophils % EN[employer]OUNT EXECUTIVE 02/25/17 04:50 Basophils % EN[employer]OUNT EXECUTIVE 02/25/17 04:50 Neutrophils (Manual) 86 % (40-80) H 03/03/17 05:55 Lymphocytes 4 % (20-50) L 03/03/17 05:55 Monocytes 1 % (2-10) L 03/03/17 05:55 Eosinophils 4 % (0-5) 03/03/17 05:55 Metamyelocytes 1 % (0-0) H 02/18/17 23:35 Hypochromia 1+ 02/18/17 23:35 Platelet Estimate DECREASED PLATELETS (NORMAL) 03/03/17 05:55 PT 13.9 SECONDS (9.5-11.5) H 03/01/17 09:15 INR 1.32 (0.5-1.4) 03/01/17 09:15 PTT (Actin FS) 53.1 SECONDS (26.0-38.0) H 03/01/17 09:15 Specimen Source ARTERIAL 02/28/17 09:33 Sample Site Left Radial 02/28/17 09:33 pH 7.50 (7.35-7.45) H 02/28/17 09:33 pCO2 24.0 mmHg (35.0-45.0) L* 02/28/17 09:33 pO2 169.0 mmHg (80.0-100.0) H 02/28/17 09:33 HCO3 22.7 mEq/L (20.0-26.0) 02/28/17 09:33 Base Excess 2.9 mEq/L (-3.0-3.0) 02/28/17 09:33 O2 Saturation 100.0 % (92.0-100.0) 02/28/17 09:33 Jorje Test Y 02/28/17 09:33 Vent Rate 12 02/28/17 09:33 Inspired O2 50 02/28/17 09:33 Tidal Volume 550 02/28/17 09:33 PEEP 5 02/28/17 09:33 Pressure (ins/psv/peep) N/A 02/28/17 09:33 Critical Value O.[place] 02/28/17 09:33 Sodium 127 mEq/L (136-145) L 03/03/17 05:55 Potassium 3.6 mEq/L (3.5-5.1) 03/03/17 05:55 Chloride 99 mEq/L (98-107) 03/03/17 05:55 Carbon Dioxide 16.9 mEq/L (21.0-31.0) L 03/03/17 05:55 Anion Gap 14.7 (7.0-16.0) 03/03/17 05:55 BUN 40 mg/dL (7-25) H 03/03/17 05:55 Creatinine 2.3 mg/dL (0.6-1.2) H 03/03/17 05:55 Est GFR ( Amer) 27.0 ml/min (>90) 03/03/17 05:55 Est GFR (Non-Af Amer) 22.3 ml/min 03/03/17 05:55 BUN/Creatinine Ratio 17.4 03/03/17 05:55 Glucose 167 mg/dL (70-105) H 03/03/17 05:55 POC Glucose 160 MG/DL (70 - 105) H 03/03/17 11:03 Hemoglobin A1c % 5.8 % (4.0-6.0) 02/22/17 10:38 Whole Bld Lactic Acid 2.40 mmol/L (0.60-1.99) H* 02/27/17 15:04 Calcium 7.7 mg/dL (8.6-10.3) L 03/03/17 05:55 Phosphorus 2.5 mg/dL (2.5-5.0) 03/01/17 09:15 Magnesium 2.1 mg/dL (1.9-2.7) 03/01/17 09:15 Total Bilirubin 0.6 mg/dL (0.3-1.0) 03/01/17 09:15 Direct Bilirubin 0.09 mg/dL (0.0-0.2) 02/18/17 23:35 AST 20 U/L (13-39) 03/01/17 09:15 ALT 6 U/L (7-52) L 03/01/17 09:15 Alkaline Phosphatase 56 U/L (34-104) 03/01/17 09:15 Ammonia 38 umol/L (16-53) 03/01/17 17:28 B-Natriuretic Peptide 220.0 pg/mL (5.0-100.0) H 02/22/17 10:38 Total Protein 4.8 gm/dL (6.0-8.3) L 03/01/17 09:15 Albumin 3.1 gm/dL (3.7-5.3) L 03/01/17 09:15 Globulin 1.7 gm/dL 03/01/17 09:15 Albumin/Globulin Ratio 1.8 (1.0-1.8) 03/01/17 09:15 Amylase 36 U/L (29-103) 02/18/17 23:35 Lipase 10 U/L (11-82) L 02/18/17 23:35 Vitamin B12 860 pg/mL (232-1245) 02/26/17 04:45 Free T4 1.04 ng/dL (0.82-1.77) 02/25/17 04:50 Free T3 0.7 pg/mL (2.0-4.4) L 02/25/17 04:50 TSH 0.84 uIU/ml (0.34-5.60) 02/25/17 04:50 Urine Source [place] 02/27/17 15:00 Urine Color YELLOW 02/27/17 15:00 Urine Clarity CLOUDY (CLEAR) H 02/27/17 15:00 Urine pH 5.5 (4.6 - 8.0) 02/27/17 15:00 Ur Specific [place] <= 1.005 (1.005-1.030) 02/27/17 15:00 Urine Protein TRACE mg/dL (NEGATIVE) 02/27/17 15:00 Urine Glucose (UA) NEGATIVE mg/dL (NEGATIVE) 02/27/17 15:00 Urine Ketones NEGATIVE mg/dL (NEGATIVE) 02/27/17 15:00 Urine Blood LARGE (NEGATIVE) H 02/27/17 15:00 Urine Nitrate NEGATIVE (NEGATIVE) 02/27/17 15:00 Urine Bilirubin NEGATIVE (NEGATIVE) 02/27/17 15:00 Urine Urobilinogen 0.2 E.U./dL (0.2 - 1.0) 02/27/17 15:00 Ur Leukocyte Esterase LARGE (NEGATIVE) H 02/27/17 15:00 Urine RBC 10-25 /hpf (0-5) H 02/27/17 15:00 Urine WBC >100 /hpf (0-5) H 02/27/17 15:00 Ur Epithelial Cells MODERATE /lpf (FEW) 02/27/17 15:00 Urine Bacteria MODERATE /hpf (NONE SEEN) H 02/27/17 15:00 Urine Yeast MODERATE /hpf (NONE SEEN) H 02/20/17 16:15 Blood Type A POSITIVE 02/27/17 15:04 Antibody Screen NEGATIVE 02/27/17 15:04 Crossmatch See Detail 02/27/17 15:04 - Physical Exam Vitals and I&O: Vital Signs Temp 97.1 F 03/03/17 12:00 Pulse 87 03/03/17 13:43 Resp 18 03/03/17 13:00 BP 120/57 03/03/17 13:00 Pulse Ox 99 03/03/17 13:43 Intake & Output 03/02/17 03/03/17 03/03/17 18:59 06:59 18:59 Intake Total 512.9 2579.755 637.25 Output Total 653 Balance 512.9 1926.755 637.25 Weight (lbs) 104.78 kg Intake: Intake, IV Amount 512.9 2579.755 637.25 D5-0.9NS w/KCL 20mEq 1, 1706.25 293.75 000 ml @ 75 mls/hr IV . [id number] [facility] Rx#:[id number] Levofloxacin 250mg/50mL 50 250 mg In 50 ml @ 50 mls/ hr IV Q24HR [facility] Rx#: [id number] Linezolid 600mg/300mL 600 300 300 300 mg In 300 ml @ 300 mls/ hr IV Q12HR [facility] Rx#: [id number] Meropenem 1 gm In 100 100 Dextrose 5% 100 ml @ 100 mls/hr IV Q12H [facility] Rx#: [id number] Norepinephrine 8 mg In 12.9 279.672 Sodium Chloride 0.9% 250 ml @ Per Protocol IV TITR [facility] Rx#:[id number] Pantoprazole 80 mg In 100 143.833 43.5 Sodium Chloride 0.9% 100 ml @ 10 mls/hr IV Q10H [facility] Rx#:[id number] Output: Urine 653 Other: # Bowel Movements 3 Stool Characteristics Liquid Liquid Brown Brown Active Medications: Current Medications Acetaminophen (Tylenol) 650 mg PO Q4HR PRN PRN Reason: Pain (Mild) Stop: 04/20/17 12:01 Last Admin: 02/21/17 09:54 Dose: 650 mg Acetaminophen/Hydrocodone Bitart ([place] 5mg/325mg) 1 tab PO Q6H PRN PRN Reason: PAIN Stop: 04/20/17 13:24 Albumin Human ([place]butein 25%) 12.5 gm IV Q8HR [facility] Stop: 03/05/17 20:59 Albuterol/Ipratropium (Duoneb Neb) 3 ml HHN Q4HRT PRN PRN Reason: Wheezing Stop: 04/27/17 19:59 Last Admin: 02/28/17 03:18 Dose: 3 ml Albuterol/Ipratropium (Duoneb Neb) 3 ml HHN [id number] [facility] Stop: 04/27/17 19:59 Last Admin: 03/03/17 13:37 Dose: 3 ml Aspirin (Ecotrin) 81 mg PO DAILY [facility] Stop: 04/21/17 08:59 Last Admin: 03/03/17 08:48 Dose: 81 mg Chlorhexidine Gluconate (Peridex) 15 ml MM 799,1999 [facility] Stop: 04/28/17 19:59 Last Admin: 03/03/17 08:14 Dose: 15 ml Diltiazem HCl (Cardizem) 5 mg IVP Q4H PRN PRN Reason: HR > 120 Stop: 04/27/17 19:59 Last Admin: 02/27/17 04:59 Dose: 5 mg Docusate Sodium (Colace) 100 mg PO BID [facility] Stop: 04/20/17 16:59 Last Admin: 03/03/17 08:49 Dose: Not Given Furosemide (Lasix) 40 mg PO DAILY [facility] Stop: 04/21/17 08:59 Last Admin: 03/03/17 08:48 Dose: 40 mg Pantoprazole Sodium 80 mg/ (Sodium Chloride) 100 mls @ 10 mls/hr IV Q10H PATRIA Stop: 04/20/17 08:59 Last Admin: 03/03/17 10:59 Dose: 10 mls/hr Linezolid (Zyvox) 600 mg in 300 mls @ 300 mls/hr IV Q12HR PATRIA Stop: 04/22/17 20:59 Last Infusion: 03/03/17 09:48 Dose: Infused Levofloxacin (Levaquin Pb) 250 mg in 50 mls @ 50 mls/hr IV Q24HR PATRIA Stop: 04/23/17 20:59 Last Infusion: 03/02/17 21:18 Dose: Infused Phenylephrine HCl 10 mg/ (Sodium Chloride) 250 mls @ 0 mls/hr IV TITR PATRIA; Per Protocol PRN Reason: Protocol Stop: 04/28/17 07:59 Norepinephrine Bitartrate 8 mg (/ Sodium Chloride) 258 mls @ 0 mls/hr IV TITR PATRIA; Per Protocol PRN Reason: Protocol Stop: 04/28/17 09:59 Last Titration: 03/03/17 06:00 Dose: 8 mcg/min, 15.48 mls/hr Meropenem 1 gm/ Dextrose 100 mls @ 100 mls/hr IV Q12H PATRIA Stop: 04/28/17 12:29 Last Admin: 03/03/17 11:59 Dose: 100 mls/hr Potassium Chloride/Dextrose/Sod Cl (D5-0.9ns W/Kcl 20meq) 1,000 mls @ 75 mls/ hr IV .[id number] PATRIA Stop: 04/30/17 14:41 Last Admin: 03/03/17 12:34 Dose: 75 mls/hr Insulin Aspart (Novolog Insulin Sliding Scale) 0 units SUBQ ACHS PATRIA PRN Reason: Protocol Stop: 04/20/17 16:29 Last Admin: 03/03/17 11:17 Dose: 2 units Mirtazapine (Remeron) 15 mg PO HS PATRIA PRN Reason: Protocol Stop: 04/26/17 20:59 Last Admin: 03/02/17 21:13 Dose: 15 mg Miscellaneous (Probiotic Screen) 1 ea MC PRN PRN PRN Reason: PROTOCOL Stop: 04/21/17 16:25 Morphine Sulfate (Morphine) 1 mg IVP Q3H PRN PRN Reason: Pain (Moderate) Stop: 04/20/17 01:59 Last Admin: 03/02/17 20:33 Dose: 1 mg Nitroglycerin (Nitrostat) 0.4 mg SL Q5MIN PRN PRN Reason: Chest Pain Stop: 04/20/17 12:01 Nystatin (Nystop) 100,000 units TP BID PRN PRN Reason: SKIN EXCORIATIONS Stop: 04/21/17 15:35 Last Admin: 03/02/17 10:00 Dose: 100,000 units Ondansetron HCl (Zofran) 4 mg IV Q6H PRN PRN Reason: Nausea Stop: 04/20/17 03:38 General: Alert, No acute distress, no Cooperative HEENT: Atraumatic, EOMI Neck: Supple, JVD, +2 carotid pulse wo bruit Cardiovascular: Regular rate, Normal S1, Normal S2 Lungs: Other (coarse rhonchi) Abdomen: Bowel sounds, Soft Extremities: no Edema Neurological: Sensation intact Skin: no Rash Psych/Mental Status: Mood NL - Procedures Procedures: Procedures Procedure Code Date INSERT EMERGENCY AIRWAY 39764 02/19/17 INSERTION OF ENDOTRACHEAL AIRWAY INTO [place], VIA OPENING [id number] 02/19/17 RESPIRATORY VENTILATION, GREATER THAN 96 CONSECUTIVE HOURS [id number] 02/19/17 VENT MGMT INPAT INIT DAY 02/19/17 VENT MGMT INPAT SUBQ DAY 02/19/17 Assessment/Plan - Problem List Patient Problems: All Active Problems Acute kidney failure (Acute) 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
--- NOTE | 2017-03-03 13:53 | General Progress Note ---
Subjective - Review of Systems Service Date: 03/03/17 Subjective: much alert, on vent Objective - Results Result Diagrams: 03/03/17 05:55 03/03/17 05:55 Recent Labs: Laboratory Last Values WBC 28.4 Th/cmm (4.8-10.8) H* 03/03/17 05:55 RBC 3.58 Mil/cmm (3.80-5.20) L 03/03/17 05:55 Hgb 10.4 gm/dL (12-16) L 03/03/17 05:55 Hct 30.9 % (41.0-60) L 03/03/17 05:55 MCV 86.2 fl (81-100) 03/03/17 05:55 MCH 29.0 pg (27.0-31.0) 03/03/17 05:55 MCHC Differential 33.6 pg (28.0-36.0) 03/03/17 05:55 RDW 13.4 % (11.5-20.0) 03/03/17 05:55 Plt Count 80 Th/cmm (150-400) L D 03/03/17 05:55 MPV 7.9 fl 03/03/17 05:55 Neutrophils % PLAY[employer] WORKER 02/25/17 04:50 Band Neutrophils % 5 % (0-10) 03/03/17 05:55 Lymphocytes % PLAY[employer] WORKER 02/25/17 04:50 Monocytes % PLAYGROUND WORKER 02/25/17 04:50 Eosinophils % PLAYGROUND WORKER 02/25/17 04:50 Basophils % PLAY[employer] WORKER 02/25/17 04:50 Neutrophils (Manual) 86 % (40-80) H 03/03/17 05:55 Lymphocytes 4 % (20-50) L 03/03/17 05:55 Monocytes 1 % (2-10) L 03/03/17 05:55 Eosinophils 4 % (0-5) 03/03/17 05:55 Metamyelocytes 1 % (0-0) H 02/18/17 23:35 Hypochromia 1+ 02/18/17 23:35 Platelet Estimate DECREASED PLATELETS (NORMAL) 03/03/17 05:55 PT 13.9 SECONDS (9.5-11.5) H 03/01/17 09:15 INR 1.32 (0.5-1.4) 03/01/17 09:15 PTT (Actin FS) 53.1 SECONDS (26.0-38.0) H 03/01/17 09:15 Specimen Source ARTERIAL 02/28/17 09:33 Sample Site Left Radial 02/28/17 09:33 pH 7.50 (7.35-7.45) H 02/28/17 09:33 pCO2 24.0 mmHg (35.0-45.0) L* 02/28/17 09:33 pO2 169.0 mmHg (80.0-100.0) H 02/28/17 09:33 HCO3 22.7 mEq/L (20.0-26.0) 02/28/17 09:33 Base Excess 2.9 mEq/L (-3.0-3.0) 02/28/17 09:33 O2 Saturation 100.0 % (92.0-100.0) 02/28/17 09:33 Jorje Test Y 02/28/17 09:33 Vent Rate 12 02/28/17 09:33 Inspired O2 50 02/28/17 09:33 Tidal Volume 550 02/28/17 09:33 PEEP 5 02/28/17 09:33 Pressure (ins/psv/peep) N/A 02/28/17 09:33 Critical Value [place] 02/28/17 09:33 Sodium 127 mEq/L (136-145) L 03/03/17 05:55 Potassium 3.6 mEq/L (3.5-5.1) 03/03/17 05:55 Chloride 99 mEq/L (98-107) 03/03/17 05:55 Carbon Dioxide 16.9 mEq/L (21.0-31.0) L 03/03/17 05:55 Anion Gap 14.7 (7.0-16.0) 03/03/17 05:55 BUN 40 mg/dL (7-25) H 03/03/17 05:55 Creatinine 2.3 mg/dL (0.6-1.2) H 03/03/17 05:55 Est GFR ( Amer) 27.0 ml/min (>90) 03/03/17 05:55 Est GFR (Non-Af Amer) 22.3 ml/min 03/03/17 05:55 BUN/Creatinine Ratio 17.4 03/03/17 05:55 Glucose 167 mg/dL (70-105) H 03/03/17 05:55 POC Glucose 160 MG/DL (70 - 105) H 03/03/17 11:03 Hemoglobin A1c % 5.8 % (4.0-6.0) 02/22/17 10:38 Whole Bld Lactic Acid 2.40 mmol/L (0.60-1.99) H* 02/27/17 15:04 Calcium 7.7 mg/dL (8.6-10.3) L 03/03/17 05:55 Phosphorus 2.5 mg/dL (2.5-5.0) 03/01/17 09:15 Magnesium 2.1 mg/dL (1.9-2.7) 03/01/17 09:15 Total Bilirubin 0.6 mg/dL (0.3-1.0) 03/01/17 09:15 Direct Bilirubin 0.09 mg/dL (0.0-0.2) 02/18/17 23:35 AST 20 U/L (13-39) 03/01/17 09:15 ALT 6 U/L (7-52) L 03/01/17 09:15 Alkaline Phosphatase 56 U/L (34-104) 03/01/17 09:15 Ammonia 38 umol/L (16-53) 03/01/17 17:28 B-Natriuretic Peptide 220.0 pg/mL (5.0-100.0) H 02/22/17 10:38 Total Protein 4.8 gm/dL (6.0-8.3) L 03/01/17 09:15 Albumin 3.1 gm/dL (3.7-5.3) L 03/01/17 09:15 Globulin 1.7 gm/dL 03/01/17 09:15 Albumin/Globulin Ratio 1.8 (1.0-1.8) 03/01/17 09:15 Amylase 36 U/L (29-103) 02/18/17 23:35 Lipase 10 U/L (11-82) L 02/18/17 23:35 Vitamin B12 860 pg/mL (232-1245) 02/26/17 04:45 Free T4 1.04 ng/dL (0.82-1.77) 02/25/17 04:50 Free T3 0.7 pg/mL (2.0-4.4) L 02/25/17 04:50 TSH 0.84 uIU/ml (0.34-5.60) 02/25/17 04:50 Urine Source [place] 02/27/17 15:00 Urine Color YELLOW 02/27/17 15:00 Urine Clarity CLOUDY (CLEAR) H 02/27/17 15:00 Urine pH 5.5 (4.6 - 8.0) 02/27/17 15:00 Ur Specific [place] <= 1.005 (1.005-1.030) 02/27/17 15:00 Urine Protein TRACE mg/dL (NEGATIVE) 02/27/17 15:00 Urine Glucose (UA) NEGATIVE mg/dL (NEGATIVE) 02/27/17 15:00 Urine Ketones NEGATIVE mg/dL (NEGATIVE) 02/27/17 15:00 Urine Blood LARGE (NEGATIVE) H 02/27/17 15:00 Urine Nitrate NEGATIVE (NEGATIVE) 02/27/17 15:00 Urine Bilirubin NEGATIVE (NEGATIVE) 02/27/17 15:00 Urine Urobilinogen 0.2 E.U./dL (0.2 - 1.0) 02/27/17 15:00 Ur Leukocyte Esterase LARGE (NEGATIVE) H 02/27/17 15:00 Urine RBC 10-25 /hpf (0-5) H 02/27/17 15:00 Urine WBC >100 /hpf (0-5) H 02/27/17 15:00 Ur Epithelial Cells MODERATE /lpf (FEW) 02/27/17 15:00 Urine Bacteria MODERATE /hpf (NONE SEEN) H 02/27/17 15:00 Urine Yeast MODERATE /hpf (NONE SEEN) H 02/20/17 16:15 Blood Type A POSITIVE 02/27/17 15:04 Antibody Screen NEGATIVE 02/27/17 15:04 Crossmatch See Detail 02/27/17 15:04 - Physical Exam Vitals and I&O: Vital Signs Temp 97.1 F 03/03/17 12:00 Pulse 87 03/03/17 13:43 Resp 18 03/03/17 13:00 BP 120/57 03/03/17 13:00 Pulse Ox 99 03/03/17 13:43 Intake & Output 03/02/17 03/03/17 03/03/17 18:59 06:59 18:59 Intake Total 512.9 2579.755 637.25 Output Total 653 Balance 512.9 1926.755 637.25 Weight (lbs) 104.78 kg Intake: Intake, IV Amount 512.9 2579.755 637.25 D5-0.9NS w/KCL 20mEq 1, 1706.25 293.75 000 ml @ 75 mls/hr IV . [id number] [facility] Rx#:[id number] Levofloxacin 250mg/50mL 50 250 mg In 50 ml @ 50 mls/ hr IV Q24HR [facility] Rx#: [id number] Linezolid 600mg/300mL 600 300 300 300 mg In 300 ml @ 300 mls/ hr IV Q12HR [facility] Rx#: [id number] Meropenem 1 gm In 100 100 Dextrose 5% 100 ml @ 100 mls/hr IV Q12H [facility] Rx#: [id number] Norepinephrine 8 mg In 12.9 279.672 Sodium Chloride 0.9% 250 ml @ Per Protocol IV TITR [facility] Rx#:[id number] Pantoprazole 80 mg In 100 143.833 43.5 Sodium Chloride 0.9% 100 ml @ 10 mls/hr IV Q10H [facility] Rx#:[id number] Output: Urine 653 Other: # Bowel Movements 3 Stool Characteristics Liquid Liquid Brown Brown Active Medications: Current Medications Acetaminophen (Tylenol) 650 mg PO Q4HR PRN PRN Reason: Pain (Mild) Stop: 04/20/17 12:01 Last Admin: 02/21/17 09:54 Dose: 650 mg Acetaminophen/Hydrocodone Bitart ([place] 5mg/325mg) 1 tab PO Q6H PRN PRN Reason: PAIN Stop: 04/20/17 13:24 Albumin Human (Albutein 25%) 12.5 gm IV Q8HR [facility] Stop: 03/05/17 20:59 Albuterol/Ipratropium (Duoneb Neb) 3 ml HHN Q4HRT PRN PRN Reason: Wheezing Stop: 04/27/17 19:59 Last Admin: 02/28/17 03:18 Dose: 3 ml Albuterol/Ipratropium (Duoneb Neb) 3 ml HHN [id number] [facility] Stop: 04/27/17 19:59 Last Admin: 03/03/17 13:37 Dose: 3 ml Aspirin (Ecotrin) 81 mg PO DAILY [facility] Stop: 04/21/17 08:59 Last Admin: 03/03/17 08:48 Dose: 81 mg Chlorhexidine Gluconate (Peridex) 15 ml MM 799,1999 [facility] Stop: 04/28/17 19:59 Last Admin: 03/03/17 08:14 Dose: 15 ml Diltiazem HCl (Cardizem) 5 mg IVP Q4H PRN PRN Reason: HR > 120 Stop: 04/27/17 19:59 Last Admin: 02/27/17 04:59 Dose: 5 mg Docusate Sodium (Colace) 100 mg PO BID [facility] Stop: 04/20/17 16:59 Last Admin: 03/03/17 08:49 Dose: Not Given Furosemide (Lasix) 40 mg PO DAILY [facility] Stop: 04/21/17 08:59 Last Admin: 03/03/17 08:48 Dose: 40 mg Pantoprazole Sodium 80 mg/ (Sodium Chloride) 100 mls @ 10 mls/hr IV Q10H [facility] Stop: 04/20/17 08:59 Last Admin: 03/03/17 10:59 Dose: 10 mls/hr Linezolid (Zyvox) 600 mg in 300 mls @ 300 mls/hr IV Q12HR [facility] Stop: 04/22/17 20:59 Last Infusion: 03/03/17 09:48 Dose: Infused Levofloxacin (Levaquin Pb) 250 mg in 50 mls @ 50 mls/hr IV Q24HR [facility] Stop: 04/23/17 20:59 Last Infusion: 03/02/17 21:18 Dose: Infused Phenylephrine HCl 10 mg/ (Sodium Chloride) 250 mls @ 0 mls/hr IV TITR [facility]RI[facility]; Per Protocol PRN Reason: Protocol Stop: 04/28/17 07:59 Norepinephrine Bitartrate 8 mg (/ Sodium Chloride) 258 mls @ 0 mls/hr IV TITR [facility]; Per Protocol PRN Reason: Protocol Stop: 04/28/17 09:59 Last Titration: 03/03/17 06:00 Dose: 8 mcg/min, 15.48 mls/hr Meropenem 1 gm/ Dextrose 100 mls @ 100 mls/hr IV Q12H [facility] Stop: 04/28/17 12:29 Last Admin: 03/03/17 11:59 Dose: 100 mls/hr Potassium Chloride/Dextrose/Sod Cl (D5-0.9ns W/Kcl 20meq) 1,000 mls @ 75 mls/ hr IV .[id number] [facility] Stop: 04/30/17 14:41 Last Admin: 03/03/17 12:34 Dose: 75 mls/hr Insulin Aspart (Novolog Insulin Sliding Scale) 0 units SUBQ ACHS [facility] PRN Reason: Protocol Stop: 04/20/17 16:29 Last Admin: 03/03/17 11:17 Dose: 2 units Mirtazapine (Remeron) 15 mg PO HS [facility] PRN Reason: Protocol Stop: 04/26/17 20:59 Last Admin: 03/02/17 21:13 Dose: 15 mg Miscellaneous (Probiotic Screen) 1 ea MC PRN PRN PRN Reason: PROTOCOL Stop: 04/21/17 16:25 Morphine Sulfate (Morphine) 1 mg IVP Q3H PRN PRN Reason: Pain (Moderate) Stop: 04/20/17 01:59 Last Admin: 03/02/17 20:33 Dose: 1 mg Nitroglycerin (Nitrostat) 0.4 mg SL Q5MIN PRN PRN Reason: Chest Pain Stop: 04/20/17 12:01 Nystatin (Nystop) 100,000 units TP BID PRN PRN Reason: SKIN EXCORIATIONS Stop: 04/21/17 15:35 Last Admin: 03/02/17 10:00 Dose: 100,000 units Ondansetron HCl (Zofran) 4 mg IV Q6H PRN PRN Reason: Nausea Stop: 04/20/17 03:38 General: Alert, No acute distress, no Cooperative HEENT: Atraumatic, EOMI Neck: Supple, JVD, +2 carotid pulse wo bruit Cardiovascular: Regular rate, Normal S1, Normal S2 Lungs: Other (coarse rhonchi) Abdomen: Bowel sounds, Soft Extremities: Other (min edema) Neurological: Sensation intact Skin: no Rash Psych/Mental Status: Mood NL - Procedures Procedures: Procedures Procedure Code Date INSERT EMERGENCY AIRWAY 09931 02/19/17 INSERTION OF ENDOTRACHEAL AIRWAY INTO [place], VIA OPENING [id number] 02/19/17 RESPIRATORY VENTILATION, GREATER THAN 96 CONSECUTIVE HOURS [id number] 02/19/17 VENT MGMT INPAT INIT DAY 81610 02/19/17 VENT MGMT INPAT SUBQ DAY 02/19/17 Assessment/Plan - Problem List Patient Problems: All Active Problems Acute kidney failure (Acute) 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 Azotemia (Acute) R79.89 Bradycardia (Acute) R00.1 COPD (chronic obstructive pulmonary disease) (Acute) Cardiomegaly (Acute) I51.7 Chest pain (Acute) R07.9 Decubitus ulcer of buttock, 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 - Assessment Assessment: SOHAIL on CKD Acute resp failure on vent 2nd CHF, HAP, possible SOFIE, Exacerbation COPD Shock Sepsis DJD Type 2 DM GERD SOFIE Hyponatremia S/p [place] Thacker - Plan Plan: Lab - Result Diagrams 03/01/17 09:15 03/01/17 09:15 Current Medications Acetaminophen (Tylenol) 650 mg PO Q4HR PRN PRN Reason: Pain (Mild) Stop: 04/20/17 12:01 Last Admin: 02/21/17 09:54 Dose: 650 mg Acetaminophen/Hydrocodone Bitart ([place] 5mg/325mg) 1 tab PO Q6H PRN PRN Reason: PAIN Stop: 04/20/17 13:24 Albuterol/Ipratropium (Duoneb Neb) 3 ml HHN Q4HRT PRN PRN Reason: Wheezing Stop: 04/27/17 19:59 Last Admin: 02/28/17 03:18 Dose: 3 ml Albuterol/Ipratropium (Duoneb Neb) 3 ml HHN [id number] [facility] Stop: 04/27/17 19:59 Last Admin: 03/01/17 13:49 Dose: 3 ml Aspirin (Ecotrin) 81 mg PO DAILY [facility] Stop: 04/21/17 08:59 Last Admin: 03/01/17 09:30 Dose: Not Given Chlorhexidine Gluconate (Peridex) 15 ml MM 0800,2000 [facility] Stop: 04/28/17 19:59 Last Admin: 03/01/17 08:30 Dose: 15 ml Diltiazem HCl (Cardizem) 5 mg IVP Q4H PRN PRN Reason: HR > 120 Stop: 04/27/17 19:59 Last Admin: 02/27/17 04:59 Dose: 5 mg Docusate Sodium (Colace) 100 mg PO BID [facility] Stop: 04/20/17 16:59 Last Admin: 03/01/17 09:31 Dose: Not Given Fluconazole (Diflucan) 100 mg PO DAILY [facility] Stop: 03/08/17 08:59 Last Admin: 03/01/17 09:31 Dose: Not Given Furosemide (Lasix) 40 mg PO DAILY [facility] Stop: 04/21/17 08:59 Last Admin: 03/01/17 09:31 Dose: Not Given Pantoprazole Sodium 80 mg/ (Sodium Chloride) 100 mls @ 10 mls/hr IV Q10H [facility] Stop: 04/20/17 08:59 Last Admin: 03/01/17 09:31 Dose: 10 mls/hr Linezolid (Zyvox) 600 mg in 300 mls @ 300 mls/hr IV Q12HR [facility] Stop: 04/22/17 20:59 Last Infusion: 03/01/17 10:00 Dose: Infused Levofloxacin (Levaquin Pb) 250 mg in 50 mls @ 50 mls/hr IV Q24HR [facility] Stop: 04/23/17 20:59 Last Infusion: 02/28/17 21:17 Dose: Infused Phenylephrine HCl 10 mg/ (Sodium Chloride) 250 mls @ 0 mls/hr IV TITR [facility]RIA; Per Protocol PRN Reason: Protocol Stop: 04/28/17 07:59 Norepinephrine Bitartrate 8 mg (/ Sodium Chloride) 258 mls @ 0 mls/hr IV TITR [facility]; Per Protocol PRN Reason: Protocol Stop: 04/28/17 09:59 Last Titration: 03/01/17 06:31 Dose: 6 mcg/min, 11.61 mls/hr Meropenem 1 gm/ Dextrose 100 mls @ 100 mls/hr IV Q12H [facility] Stop: 04/28/17 12:29 Last Infusion: 03/01/17 13:00 Dose: Infused Potassium Chloride/Dextrose/Sod Cl (D5-0.9ns W/Kcl 20meq) 1,000 mls @ 75 mls/ hr IV .[id number] [facility] Stop: 04/30/17 14:41 Insulin Aspart (Novolog Insulin Sliding Scale) 0 units SUBQ ACHS [facility] PRN Reason: Protocol Stop: 04/20/17 16:29 Last Admin: 03/01/17 12:01 Dose: 4 units Mirtazapine (Remeron) 15 mg PO HS [facility] PRN Reason: Protocol Stop: 04/26/17 20:59 Last Admin: 02/28/17 21:23 Dose: 15 mg Miscellaneous (Probiotic Screen) 1 ea MC PRN PRN PRN Reason: PROTOCOL Stop: 04/21/17 16:25 Morphine Sulfate (Morphine) 1 mg IVP Q3H PRN PRN Reason: Pain (Moderate) Stop: 04/20/17 01:59 Last Admin: 03/01/17 09:28 Dose: 1 mg Nitroglycerin (Nitrostat) 0.4 mg SL Q5MIN PRN PRN Reason: Chest Pain Stop: 04/20/17 12:01 Nystatin (Nystop) 100,000 units TP BID PRN PRN Reason: SKIN EXCORIATIONS Stop: 04/21/17 15:35 Last Admin: 02/21/17 11:46 Dose: 100,000 units Ondansetron HCl (Zofran) 4 mg IV Q6H PRN PRN Reason: Nausea Stop: 04/20/17 03:38 Spironolactone (Aldactone) 50 mg PO BID [facility] Stop: 04/27/17 08:59 Last Admin: 03/01/17 09:29 Dose: Not Given Na up to 127 Cr. down to 2.3 UOP improved to nam 2L CXR still w/ CHF, continue Lasix po DC spironolactone still on Levo 8 mcg f/u electorlytes, cbc, CXR start IVF D5NS @ 70 ml/hr w/ KCL add albumin Nutritional Asmnt/Malnutr-PDOC - Dietary Evaluation Malnutrition Findings (Please click <Entered> for more info): Nutritional Asmnt/Malnutrition Start: 02/21/17 18: 20 Text: Status: Complete Freq: Document 02/21/17 18:21 LCELLEN (Rec: 02/21/17 18:32 LCHENG [id number]) Nutritional Asmnt/Malnutrition Patient General Information Nutritional Screening High Risk Consult Diagnosis gastric outlet obstruction Pertinent Medical Hx/Surgical Hx HTN, OA, DM, GERD Subjective Information Pt seen sleeping at the time of visit, attempted x 2. Spoke with RN, pt consumed 50% of breakfast and only the soup of lunch today, not much appetite, no complain of N/V. Pt will be NPO from midnight for GI exam tommorrow. Current Diet Order/ Nutrition Support no added salt 4gm, CCHO, no eggs, banana and cereal in morning Pertinent Medications colace, lasix, novolog, levaquin, piperacillin Pertinent Labs 02/20 Na 137, K 4.5, Cl 104, BUN 55, Cr 1.6, Glucose 137, POC 126-199 since admit, Ca 8. 3 Nutritional Hx/Data Height 1.57 m Height (Calculated Centimeters) 157.5 Current Weight (lbs) 97.023 kg Weight (Calculated Kilograms) 97.0 Weight (Calculated Grams) 04360.4 [place] Body Weight 110 % [place] Body Weight 194 Body Mass Index (BMI) 39.1 Weight Status Obese GI Symptoms GI Symptoms None Last BM none Difficult in: None Skin Integrity/Comment: multiple maceration, abrasion to right/left medial thigh Current %PO Poor (25-49%) Estimated Nutritional Goals BEE in Kcals: Adj wt of IBW Calories/Kcals/Kg 27-32 Kcals Calculated Protein: Adj wt of IBW Protein g/k-1.2 Protein Calculated 62-74 Fluid: ml Nutritional Problem 1. Problem Problem inadequate PO intake Etiology poor appetite Signs/Symptoms: PO intake 25-50% Malnutrition Alert Protein-Calorie Malnutrition N/A Is there a minimum of two criteria No selected? Query Text:Check all the applicable criteria. A minimum of two criteria are recommended for diagnosis of either severe or non-severe malnutrition. Intervention/Recommendation Comments 1. Continue with current diet as ordered. 2. Monitor PO intake, GI symptons, wt, labs and skin integrity 3. F/U as high risk in 2-3 days, 02/23-02/24 Expected Outcomes/Goals Expected Outcomes/Goals 1. PO intake to meet at least 75% of nutritional needs. 2. Wt stability, skin to remain intact, labs to improve
--- NOTE | 2017-03-03 14:25 | Internal Medicine Prog Note ---
Internal Medicine Subjective - Subjective Service Date: 03/03/17 (REMAINS INTUBATED ) Patient is:: awake, in bed Per staff patient has:: tolerating meds Internal Medicine Objective - Results Result Diagrams: 03/03/17 05:55 03/03/17 05:55 Recent Labs: Laboratory Last Values WBC 28.4 Th/cmm (4.8-10.8) H* 03/03/17 05:55 RBC 3.58 Mil/cmm (3.80-5.20) L 03/03/17 05:55 Hgb 10.4 gm/dL (12-16) L 03/03/17 05:55 Hct 30.9 % (41.0-60) L 03/03/17 05:55 MCV 86.2 fl (81-100) 03/03/17 05:55 MCH 29.0 pg (27.0-31.0) 03/03/17 05:55 MCHC Differential 33.6 pg (28.0-36.0) 03/03/17 05:55 RDW 13.4 % (11.5-20.0) 03/03/17 05:55 Plt Count 80 Th/cmm (150-400) L D 03/03/17 05:55 MPV 7.9 fl 03/03/17 05:55 Neutrophils % [employer] 02/25/17 04:50 Band Neutrophils % 5 % (0-10) 03/03/17 05:55 Lymphocytes % [employer] 02/25/17 04:50 Monocytes % [employer] 02/25/17 04:50 Eosinophils % [employer] 02/25/17 04:50 Basophils % [employer] 02/25/17 04:50 Neutrophils (Manual) 86 % (40-80) H 03/03/17 05:55 Lymphocytes 4 % (20-50) L 03/03/17 05:55 Monocytes 1 % (2-10) L 03/03/17 05:55 Eosinophils 4 % (0-5) 03/03/17 05:55 Metamyelocytes 1 % (0-0) H 02/18/17 23:35 Hypochromia 1+ 02/18/17 23:35 Platelet Estimate DECREASED PLATELETS (NORMAL) 03/03/17 05:55 PT 13.9 SECONDS (9.5-11.5) H 03/01/17 09:15 INR 1.32 (0.5-1.4) 03/01/17 09:15 PTT (Actin FS) 53.1 SECONDS (26.0-38.0) H 03/01/17 09:15 Specimen Source ARTERIAL 02/28/17 09:33 Sample Site Left Radial 02/28/17 09:33 pH 7.50 (7.35-7.45) H 02/28/17 09:33 pCO2 24.0 mmHg (35.0-45.0) L* 02/28/17 09:33 pO2 169.0 mmHg (80.0-100.0) H 02/28/17 09:33 HCO3 22.7 mEq/L (20.0-26.0) 02/28/17 09:33 Base Excess 2.9 mEq/L (-3.0-3.0) 02/28/17 09:33 O2 Saturation 100.0 % (92.0-100.0) 02/28/17 09:33 Jorje Test Y 02/28/17 09:33 Vent Rate 12 02/28/17 09:33 Inspired O2 50 02/28/17 09:33 Tidal Volume 550 02/28/17 09:33 PEEP 5 02/28/17 09:33 Pressure (ins/psv/peep) N/A 02/28/17 09:33 Critical Value [place] 02/28/17 09:33 Sodium 127 mEq/L (136-145) L 03/03/17 05:55 Potassium 3.6 mEq/L (3.5-5.1) 03/03/17 05:55 Chloride 99 mEq/L (98-107) 03/03/17 05:55 Carbon Dioxide 16.9 mEq/L (21.0-31.0) L 03/03/17 05:55 Anion Gap 14.7 (7.0-16.0) 03/03/17 05:55 BUN 40 mg/dL (7-25) H 03/03/17 05:55 Creatinine 2.3 mg/dL (0.6-1.2) H 03/03/17 05:55 Est GFR ( Amer) 27.0 ml/min (>90) 03/03/17 05:55 Est GFR (Non-Af Amer) 22.3 ml/min 03/03/17 05:55 BUN/Creatinine Ratio 17.4 03/03/17 05:55 Glucose 167 mg/dL (70-105) H 03/03/17 05:55 POC Glucose 160 MG/DL (70 - 105) H 03/03/17 11:03 Hemoglobin A1c % 5.8 % (4.0-6.0) 02/22/17 10:38 Whole Bld Lactic Acid 2.40 mmol/L (0.60-1.99) H* 02/27/17 15:04 Calcium 7.7 mg/dL (8.6-10.3) L 03/03/17 05:55 Phosphorus 2.5 mg/dL (2.5-5.0) 03/01/17 09:15 Magnesium 2.1 mg/dL (1.9-2.7) 03/01/17 09:15 Total Bilirubin 0.6 mg/dL (0.3-1.0) 03/01/17 09:15 Direct Bilirubin 0.09 mg/dL (0.0-0.2) 02/18/17 23:35 AST 20 U/L (13-39) 03/01/17 09:15 ALT 6 U/L (7-52) L 03/01/17 09:15 Alkaline Phosphatase 56 U/L (34-104) 03/01/17 09:15 Ammonia 38 umol/L (16-53) 03/01/17 17:28 B-Natriuretic Peptide 220.0 pg/mL (5.0-100.0) H 02/22/17 10:38 Total Protein 4.8 gm/dL (6.0-8.3) L 03/01/17 09:15 Albumin 3.1 gm/dL (3.7-5.3) L 03/01/17 09:15 Globulin 1.7 gm/dL 03/01/17 09:15 Albumin/Globulin Ratio 1.8 (1.0-1.8) 03/01/17 09:15 Amylase 36 U/L (29-103) 02/18/17 23:35 Lipase 10 U/L (11-82) L 02/18/17 23:35 Vitamin B12 860 pg/mL (232-1245) 02/26/17 04:45 Free T4 1.04 ng/dL (0.82-1.77) 02/25/17 04:50 Free T3 0.7 pg/mL (2.0-4.4) L 02/25/17 04:50 TSH 0.84 uIU/ml (0.34-5.60) 02/25/17 04:50 Urine Source [place] 02/27/17 15:00 Urine Color YELLOW 02/27/17 15:00 Urine Clarity CLOUDY (CLEAR) H 02/27/17 15:00 Urine pH 5.5 (4.6 - 8.0) 02/27/17 15:00 Ur Specific [place] <= 1.005 (1.005-1.030) 02/27/17 15:00 Urine Protein TRACE mg/dL (NEGATIVE) 02/27/17 15:00 Urine Glucose (UA) NEGATIVE mg/dL (NEGATIVE) 02/27/17 15:00 Urine Ketones NEGATIVE mg/dL (NEGATIVE) 02/27/17 15:00 Urine Blood LARGE (NEGATIVE) H 02/27/17 15:00 Urine Nitrate NEGATIVE (NEGATIVE) 02/27/17 15:00 Urine Bilirubin NEGATIVE (NEGATIVE) 02/27/17 15:00 Urine Urobilinogen 0.2 E.U./dL (0.2 - 1.0) 02/27/17 15:00 Ur Leukocyte Esterase LARGE (NEGATIVE) H 02/27/17 15:00 Urine RBC 10-25 /hpf (0-5) H 02/27/17 15:00 Urine WBC >100 /hpf (0-5) H 02/27/17 15:00 Ur Epithelial Cells MODERATE /lpf (FEW) 02/27/17 15:00 Urine Bacteria MODERATE /hpf (NONE SEEN) H 02/27/17 15:00 Urine Yeast MODERATE /hpf (NONE SEEN) H 02/20/17 16:15 Blood Type A POSITIVE 02/27/17 15:04 Antibody Screen NEGATIVE 02/27/17 15:04 Crossmatch See Detail 02/27/17 15:04 - Physical Exam Vitals and I&O: Vital Signs Temp 97.1 F 03/03/17 12:00 Pulse 87 03/03/17 13:43 Resp 18 03/03/17 13:00 BP 120/57 03/03/17 13:00 Pulse Ox 99 03/03/17 13:43 Intake & Output 03/02/17 03/03/17 03/03/17 18:59 06:59 18:59 Intake Total 512.9 2579.755 637.25 Output Total 653 Balance 512.9 1926.755 637.25 Weight (lbs) 231 lb Intake: Intake, IV Amount 512.9 2579.755 637.25 D5-0.9NS w/KCL 20mEq 1, 1706.25 293.75 000 ml @ 75 mls/hr IV . [id number] [facility] Rx#:[id number] Levofloxacin 250mg/50mL 50 250 mg In 50 ml @ 50 mls/ hr IV Q24HR [facility] Rx#: [id number] Linezolid 600mg/300mL 600 300 300 300 mg In 300 ml @ 300 mls/ hr IV Q12HR [facility] Rx#: [id number] Meropenem 1 gm In 100 100 Dextrose 5% 100 ml @ 100 mls/hr IV Q12H [facility] Rx#: [id number] Norepinephrine 8 mg In 12.9 279.672 Sodium Chloride 0.9% 250 ml @ Per Protocol IV TITR [facility] Rx#:[id number] Pantoprazole 80 mg In 100 143.833 43.5 Sodium Chloride 0.9% 100 ml @ 10 mls/hr IV Q10H [facility] Rx#:[id number] Output: Urine 653 Other: # Bowel Movements 3 Stool Characteristics Liquid Liquid Brown Brown Active Medications: Current Medications Acetaminophen (Tylenol) 650 mg PO Q4HR PRN PRN Reason: Pain (Mild) Stop: 04/20/17 12:01 Last Admin: 02/21/17 09:54 Dose: 650 mg Acetaminophen/Hydrocodone Bitart ([place] 5mg/325mg) 1 tab PO Q6H PRN PRN Reason: PAIN Stop: 04/20/17 13:24 Albumin Human (Albutein 25%) 12.5 gm IV Q8HR [facility] Stop: 03/05/17 20:59 Albuterol/Ipratropium (Duoneb Neb) 3 ml HHN Q4HRT PRN PRN Reason: Wheezing Stop: 04/27/17 19:59 Last Admin: 02/28/17 03:18 Dose: 3 ml Albuterol/Ipratropium (Duoneb Neb) 3 ml HHN [id number] [facility] Stop: 04/27/17 19:59 Last Admin: 03/03/17 13:37 Dose: 3 ml Aspirin (Ecotrin) 81 mg PO DAILY [facility] Stop: 04/21/17 08:59 Last Admin: 03/03/17 08:48 Dose: 81 mg Chlorhexidine Gluconate (Peridex) 15 ml MM 799,[phone] [facility] Stop: 04/28/17 19:59 Last Admin: 03/03/17 08:14 Dose: 15 ml Diltiazem HCl (Cardizem) 5 mg IVP Q4H PRN PRN Reason: HR > 120 Stop: 04/27/17 19:59 Last Admin: 02/27/17 04:59 Dose: 5 mg Docusate Sodium (Colace) 100 mg PO BID [facility] Stop: 04/20/17 16:59 Last Admin: 03/03/17 08:49 Dose: Not Given Furosemide (Lasix) 40 mg PO DAILY [facility] Stop: 04/21/17 08:59 Last Admin: 03/03/17 08:48 Dose: 40 mg Pantoprazole Sodium 80 mg/ (Sodium Chloride) 100 mls @ 10 mls/hr IV Q10H [facility] Stop: 04/20/17 08:59 Last Admin: 03/03/17 10:59 Dose: 10 mls/hr Linezolid (Zyvox) 600 mg in 300 mls @ 300 mls/hr IV Q12HR [facility] Stop: 04/22/17 20:59 Last Infusion: 03/03/17 09:48 Dose: Infused Levofloxacin (Levaquin Pb) 250 mg in 50 mls @ 50 mls/hr IV Q24HR [facility] Stop: 04/23/17 20:59 Last Infusion: 03/02/17 21:18 Dose: Infused Phenylephrine HCl 10 mg/ (Sodium Chloride) 250 mls @ 0 mls/hr IV TITR [facility]; Per Protocol PRN Reason: Protocol Stop: 04/28/17 07:59 Norepinephrine Bitartrate 8 mg (/ Sodium Chloride) 258 mls @ 0 mls/hr IV TITR [facility]; Per Protocol PRN Reason: Protocol Stop: 04/28/17 09:59 Last Titration: 03/03/17 06:00 Dose: 8 mcg/min, 15.48 mls/hr Meropenem 1 gm/ Dextrose 100 mls @ 100 mls/hr IV Q12H [facility] Stop: 04/28/17 12:29 Last Admin: 03/03/17 11:59 Dose: 100 mls/hr Potassium Chloride/Dextrose/Sod Cl (D5-0.9ns W/Kcl 20meq) 1,000 mls @ 75 mls/ hr IV .[id number] [facility] Stop: 04/30/17 14:41 Last Admin: 03/03/17 12:34 Dose: 75 mls/hr Insulin Aspart (Novolog Insulin Sliding Scale) 0 units SUBQ ACHS [facility] PRN Reason: Protocol Stop: 04/20/17 16:29 Last Admin: 03/03/17 11:17 Dose: 2 units Mirtazapine (Remeron) 15 mg PO HS [facility] PRN Reason: Protocol Stop: 04/26/17 20:59 Last Admin: 03/02/17 21:13 Dose: 15 mg Miscellaneous (Probiotic Screen) 1 ea MC PRN PRN PRN Reason: PROTOCOL Stop: 04/21/17 16:25 Morphine Sulfate (Morphine) 1 mg IVP Q3H PRN PRN Reason: Pain (Moderate) Stop: 04/20/17 01:59 Last Admin: 03/02/17 20:33 Dose: 1 mg Nitroglycerin (Nitrostat) 0.4 mg SL Q5MIN PRN PRN Reason: Chest Pain Stop: 04/20/17 12:01 Nystatin (Nystop) 100,000 units TP BID PRN PRN Reason: SKIN EXCORIATIONS Stop: 04/21/17 15:35 Last Admin: 03/02/17 10:00 Dose: 100,000 units Ondansetron HCl (Zofran) 4 mg IV Q6H PRN PRN Reason: Nausea Stop: 04/20/17 03:38 General: weak, alert HEENT: NC/AT, PERRLA Neck: Supple Lungs: ronchi Abdomen: soft, non-tender, non-distended Extremities: excoriation Neurological: no change - Procedures Procedures: Procedures Procedure Code Date INSERT EMERGENCY AIRWAY 78104 02/19/17 INSERTION OF ENDOTRACHEAL AIRWAY INTO [place], VIA OPENING [id number] 02/19/17 RESPIRATORY VENTILATION, GREATER THAN 96 CONSECUTIVE HOURS [id number] 02/19/17 VENT MGMT INPAT INIT DAY 02/19/17 VENT MGMT INPAT SUBQ DAY 02/19/17 Internal Medicine Assmt/Plan - Assessment Assessment: Acute kidney failure (Acute) 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 Azotemia (Acute) R79.89 Bradycardia (Acute) R00.1 COPD (chronic obstructive pulmonary disease) (Acute) Cardiomegaly (Acute) I51.7 Chest pain (Acute) R07.9 Decubitus ulcer of buttock, 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 Acute respiratory failure - Plan Plan: continue vent support monitor glucose continue ivabx as per id follow up labs in am continue current orders Nutritional Asmnt/Malnutr-PDOC - Dietary Evaluation Malnutrition Findings (Please click <Entered> for more info): Nutritional Asmnt/Malnutrition Start: 02/21/17 18: 20 Text: Status: Complete Freq: Document 02/21/17 18:21 LCANCELMO (Rec: 02/21/17 18:32 [facility] Nutritional Asmnt/Malnutrition Patient General Information Nutritional Screening High Risk Consult Diagnosis gastric outlet obstruction Pertinent Medical Hx/Surgical Hx HTN, OA, DM, GERD Subjective Information Pt seen sleeping at the time of visit, attempted x 2. Spoke with RN, pt consumed 50% of breakfast and only the soup of lunch today, not much appetite, no complain of N/V. Pt will be NPO from midnight for GI exam tommorrow. Current Diet Order/ Nutrition Support no added salt 4gm, CCHO, no eggs, banana and cereal in morning Pertinent Medications colace, lasix, novolog, levaquin, piperacillin Pertinent Labs 02/20 Na 137, K 4.5, Cl 104, BUN 55, Cr 1.6, Glucose 137, POC 126-199 since admit, Ca 8. 3 Nutritional Hx/Data Height 5 ft 2 in Height (Calculated Centimeters) 157.5 Current Weight (lbs) 213 lb 14.4 oz Weight (Calculated Kilograms) 97.0 Weight (Calculated Grams) 96366.4 [place] Body Weight 110 % [place] Body Weight 194 Body Mass Index (BMI) 39.1 Weight Status Obese GI Symptoms GI Symptoms None Last BM none Difficult in: None Skin Integrity/Comment: multiple maceration, abrasion to right/left medial thigh Current %PO Poor (25-49%) Estimated Nutritional Goals BEE in Kcals: Adj wt of IBW Calories/Kcals/Kg 27-32 Kcals Calculated Protein: Adj wt of IBW Protein g/k-1.2 Protein Calculated 62-74 Fluid: ml Nutritional Problem 1. Problem Problem inadequate PO intake Etiology poor appetite Signs/Symptoms: PO intake 25-50% Malnutrition Alert Protein-Calorie Malnutrition N/A Is there a minimum of two criteria No selected? Query Text:Check all the applicable criteria. A minimum of two criteria are recommended for diagnosis of either severe or non-severe malnutrition. Intervention/Recommendation Comments 1. Continue with current diet as ordered. 2. Monitor PO intake, GI symptons, wt, labs and skin integrity 3. F/U as high risk in 2-3 days, 02/23-02/24 Expected Outcomes/Goals Expected Outcomes/Goals 1. PO intake to meet at least 75% of nutritional needs. 2. Wt stability, skin to remain intact, labs to improve
--- NOTE | 2017-03-03 14:59 | Diagnostic Imaging Report ---
Portable chest x-ray HISTORY: Shortness of breath, nasogastric tube placement Compared with the prior exam performed earlier in the day (0826 hours), the heart remains markedly enlarged. There is pulmonary vascular redistribution, hazy interstitial markings, and a small right pleural effusion. Findings consistent with congestive heart failure. A nasogastric tube extends below the diaphragm into the region of the stomach. An endotracheal tube tip is approximately 4.0 cm above the abhishek. IMPRESSION: 1. Persistent cardiomegaly with evidence of congestive heart failure as noted above 2. Nasogastric tube extending below the diaphragm into the region of the stomach 3. Endotracheal tube tip approximately 4.0 cm above the abhishek 4. Inferior vena cava filter noted
[2017-03-03 17:13] LABS: ALLEN TEST Positive; pH 7.23 (7.35-7.45)
[2017-03-03] MEDS: Morphine Sulfate 2 mg/mL 1mL Syr IVP PRN (18:48)
[2017-03-03] MEDS: Levofloxacin 250 mg/50 mL Premix Bag IV SCH (23:33)
--- NOTE | 2017-03-03 23:49 | Infectious Disease Prog Note ---
Infectious Disease Subjective - Review of Systems Service Date: 03/03/17 Subjective: shortness of breath with hypoxia, ABG showed respiratory failure with acidosis. on vent intubated orally. Infectious Disease Objective - Results Result Diagrams: 03/03/17 05:55 03/03/17 05:55 Recent Labs: Laboratory Last Values WBC 28.4 Th/cmm (4.8-10.8) H* 03/03/17 05:55 RBC 3.58 Mil/cmm (3.80-5.20) L 03/03/17 05:55 Hgb 10.4 gm/dL (12-16) L 03/03/17 05:55 Hct 30.9 % (41.0-60) L 03/03/17 05:55 MCV 86.2 fl (81-100) 03/03/17 05:55 MCH 29.0 pg (27.0-31.0) 03/03/17 05:55 MCHC Differential 33.6 pg (28.0-36.0) 03/03/17 05:55 RDW 13.4 % (11.5-20.0) 03/03/17 05:55 Plt Count 80 Th/cmm (150-400) L D 03/03/17 05:55 MPV 7.9 fl 03/03/17 05:55 Neutrophils % AN/SYQ 13 NAV/C2 OPERATOR 02/25/17 04:50 Band Neutrophils % 5 % (0-10) 03/03/17 05:55 Lymphocytes % AN/SYQ 13 NAV/C2 OPERATOR 02/25/17 04:50 Monocytes % AN/SYQ 13 NAV/C2 OPERATOR 02/25/17 04:50 Eosinophils % AN/SYQ 13 NAV/C2 OPERATOR 02/25/17 04:50 Basophils % AN/SYQ 13 NAV/C2 OPERATOR 02/25/17 04:50 Neutrophils (Manual) 86 % (40-80) H 03/03/17 05:55 Lymphocytes 4 % (20-50) L 03/03/17 05:55 Monocytes 1 % (2-10) L 03/03/17 05:55 Eosinophils 4 % (0-5) 03/03/17 05:55 Metamyelocytes 1 % (0-0) H 02/18/17 23:35 Hypochromia 1+ 02/18/17 23:35 Platelet Estimate DECREASED PLATELETS (NORMAL) 03/03/17 05:55 PT 13.9 SECONDS (9.5-11.5) H 03/01/17 09:15 INR 1.32 (0.5-1.4) 03/01/17 09:15 PTT (Actin FS) 53.1 SECONDS (26.0-38.0) H 03/01/17 09:15 Specimen Source Arterial 03/03/17 16:47 Sample Site Right Radial 03/03/17 16:47 pH 7.23 (7.35-7.45) L* 03/03/17 16:47 pCO2 49.0 mmHg (35.0-45.0) H 03/03/17 16:47 pO2 53.0 mmHg (80.0-100.0) L 03/03/17 16:47 HCO3 19.0 mEq/L (20.0-26.0) L 03/03/17 16:47 Base Excess -7.1 mEq/L (-3.0-3.0) L 03/03/17 16:47 O2 Saturation 80.0 % (92.0-100.0) L 03/03/17 16:47 Jorje Test Positive 03/03/17 16:47 Vent Rate NA 03/03/17 16:47 Inspired O2 40 03/03/17 16:47 Tidal Volume NA 03/03/17 16:47 PEEP NA 03/03/17 16:47 Pressure (ins/psv/peep) NA 03/03/17 16:47 Critical Value LZHANG 03/03/17 16:47 Sodium 127 mEq/L (136-145) L 03/03/17 05:55 Potassium 3.6 mEq/L (3.5-5.1) 03/03/17 05:55 Chloride 99 mEq/L (98-107) 03/03/17 05:55 Carbon Dioxide 16.9 mEq/L (21.0-31.0) L 03/03/17 05:55 Anion Gap 14.7 (7.0-16.0) 03/03/17 05:55 BUN 40 mg/dL (7-25) H 03/03/17 05:55 Creatinine 2.3 mg/dL (0.6-1.2) H 03/03/17 05:55 Est GFR ( Amer) 27.0 ml/min (>90) 03/03/17 05:55 Est GFR (Non-Af Amer) 22.3 ml/min 03/03/17 05:55 BUN/Creatinine Ratio 17.4 03/03/17 05:55 Glucose 167 mg/dL (70-105) H 03/03/17 05:55 POC Glucose 165 MG/DL (70 - 105) H 03/03/17 17:20 Hemoglobin A1c % 5.8 % (4.0-6.0) 02/22/17 10:38 Whole Bld Lactic Acid 2.40 mmol/L (0.60-1.99) H* 02/27/17 15:04 Calcium 7.7 mg/dL (8.6-10.3) L 03/03/17 05:55 Phosphorus 2.5 mg/dL (2.5-5.0) 03/01/17 09:15 Magnesium 2.1 mg/dL (1.9-2.7) 03/01/17 09:15 Total Bilirubin 0.6 mg/dL (0.3-1.0) 03/01/17 09:15 Direct Bilirubin 0.09 mg/dL (0.0-0.2) 02/18/17 23:35 AST 20 U/L (13-39) 03/01/17 09:15 ALT 6 U/L (7-52) L 03/01/17 09:15 Alkaline Phosphatase 56 U/L (34-104) 03/01/17 09:15 Ammonia 38 umol/L (16-53) 03/01/17 17:28 B-Natriuretic Peptide 220.0 pg/mL (5.0-100.0) H 02/22/17 10:38 Total Protein 4.8 gm/dL (6.0-8.3) L 03/01/17 09:15 Albumin 3.1 gm/dL (3.7-5.3) L 03/01/17 09:15 Globulin 1.7 gm/dL 03/01/17 09:15 Albumin/Globulin Ratio 1.8 (1.0-1.8) 03/01/17 09:15 Amylase 36 U/L (29-103) 02/18/17 23:35 Lipase 10 U/L (11-82) L 02/18/17 23:35 Vitamin B12 860 pg/mL (232-1245) 02/26/17 04:45 Free T4 1.04 ng/dL (0.82-1.77) 02/25/17 04:50 Free T3 0.7 pg/mL (2.0-4.4) L 02/25/17 04:50 TSH 0.84 uIU/ml (0.34-5.60) 02/25/17 04:50 Urine Source [place] 02/27/17 15:00 Urine Color YELLOW 02/27/17 15:00 Urine Clarity CLOUDY (CLEAR) H 02/27/17 15:00 Urine pH 5.5 (4.6 - 8.0) 02/27/17 15:00 Ur Specific [place] <= 1.005 (1.005-1.030) 02/27/17 15:00 Urine Protein TRACE mg/dL (NEGATIVE) 02/27/17 15:00 Urine Glucose (UA) NEGATIVE mg/dL (NEGATIVE) 02/27/17 15:00 Urine Ketones NEGATIVE mg/dL (NEGATIVE) 02/27/17 15:00 Urine Blood LARGE (NEGATIVE) H 02/27/17 15:00 Urine Nitrate NEGATIVE (NEGATIVE) 02/27/17 15:00 Urine Bilirubin NEGATIVE (NEGATIVE) 02/27/17 15:00 Urine Urobilinogen 0.2 E.U./dL (0.2 - 1.0) 02/27/17 15:00 Ur Leukocyte Esterase LARGE (NEGATIVE) H 02/27/17 15:00 Urine RBC 10-25 /hpf (0-5) H 02/27/17 15:00 Urine WBC >100 /hpf (0-5) H 02/27/17 15:00 Ur Epithelial Cells MODERATE /lpf (FEW) 02/27/17 15:00 Urine Bacteria MODERATE /hpf (NONE SEEN) H 02/27/17 15:00 Urine Yeast MODERATE /hpf (NONE SEEN) H 02/20/17 16:15 Blood Type A POSITIVE 02/27/17 15:04 Antibody Screen NEGATIVE 02/27/17 15:04 Crossmatch See Detail 02/27/17 15:04 - Physical Exam Vitals and I&O: Vital Signs Temp 97.0 F 03/03/17 16:00 Pulse 90 03/03/17 23:16 Resp 25 03/03/17 18:00 BP 229/195 03/03/17 18:45 Pulse Ox 96 03/03/17 23:16 Intake & Output 01/06/1503/03/17 03/04/17 06:59 18:59 06:59 Intake Total 2579.755 927.848 2.903 Output Total 653 750 Balance 1926.755 177.848 2.903 Weight (lbs) 104.78 kg 105.007 kg Intake: Intake, IV Amount 2579.755 927.848 2.903 D5-0.9NS w/KCL 20mEq 1, 1706.25 293.75 000 ml @ 75 mls/hr IV . [id number] [facility] Rx#:[id number] Levofloxacin 250mg/50mL 50 250 mg In 50 ml @ 50 mls/ hr IV Q24HR [facility] Rx#: [id number] Linezolid 600mg/300mL 600 300 300 mg In 300 ml @ 300 mls/ hr IV Q12HR [facility] Rx#: [id number] Meropenem 1 gm In 100 100 Dextrose 5% 100 ml @ 100 mls/hr IV Q12H [facility] Rx#: [id number] Norepinephrine 8 mg In 279.672 190.598 2.903 Sodium Chloride 0.9% 250 ml @ Per Protocol IV TITR [facility] Rx#:[id number] Pantoprazole 80 mg In 143.833 43.5 Sodium Chloride 0.9% 100 ml @ 10 mls/hr IV Q10H [facility] Rx#:[id number] Output: Urine 653 750 Other: # Bowel Movements 3 Stool Characteristics Liquid Liquid Brown Brown Active Medications: Current Medications Acetaminophen (Tylenol) 650 mg PO Q4HR PRN PRN Reason: Pain (Mild) Stop: 04/20/17 12:01 Last Admin: 02/21/17 09:54 Dose: 650 mg Acetaminophen/Hydrocodone Bitart ([place] 5mg/325mg) 1 tab PO Q6H PRN PRN Reason: PAIN Stop: 04/20/17 13:24 Albumin Human (Albutein 25%) 12.5 gm IV Q8HR [facility] Stop: 03/05/17 20:59 Albuterol/Ipratropium (Duoneb Neb) 3 ml HHN Q4HRT PRN PRN Reason: Wheezing Stop: 04/27/17 19:59 Last Admin: 02/28/17 03:18 Dose: 3 ml Albuterol/Ipratropium (Duoneb Neb) 3 ml HHN [id number] [facility] Stop: 04/27/17 19:59 Last Admin: 03/03/17 18:59 Dose: 3 ml Aspirin (Ecotrin) 81 mg PO DAILY [facility] Stop: 04/21/17 08:59 Last Admin: 03/03/17 08:48 Dose: 81 mg Chlorhexidine Gluconate (Peridex) 15 ml MM 0800,2000 [facility] Stop: 04/28/17 19:59 Last Admin: 03/03/17 23:31 Dose: 15 ml Diltiazem HCl (Cardizem) 5 mg IVP Q4H PRN PRN Reason: HR > 120 Stop: 04/27/17 19:59 Last Admin: 02/27/17 04:59 Dose: 5 mg Docusate Sodium (Colace) 100 mg PO BID [facility] Stop: 04/20/17 16:59 Last Admin: 03/03/17 16:58 Dose: Not Given Furosemide (Lasix) 40 mg PO DAILY [facility] Stop: 04/21/17 08:59 Last Admin: 03/03/17 08:48 Dose: 40 mg Pantoprazole Sodium 80 mg/ (Sodium Chloride) 100 mls @ 10 mls/hr IV Q10H [facility] Stop: 04/20/17 08:59 Last Admin: 03/03/17 10:59 Dose: 10 mls/hr Linezolid (Zyvox) 600 mg in 300 mls @ 300 mls/hr IV Q12HR [facility] Stop: 04/22/17 20:59 Last Admin: 03/03/17 23:31 Dose: 300 mls/hr Levofloxacin (Levaquin Pb) 250 mg in 50 mls @ 50 mls/hr IV Q24HR [facility] Stop: 04/23/17 20:59 Last Admin: 03/03/17 23:33 Dose: 50 mls/hr Phenylephrine HCl 10 mg/ (Sodium Chloride) 250 mls @ 0 mls/hr IV TITR [facility]; Per Protocol PRN Reason: Protocol Stop: 04/28/17 07:59 Norepinephrine Bitartrate 8 mg (/ Sodium Chloride) 258 mls @ 0 mls/hr IV TITR [facility]; Per Protocol PRN Reason: Protocol Stop: 04/28/17 09:59 Last Titration: 03/03/17 19:15 Dose: 6 mcg/min, 11.61 mls/hr Meropenem 1 gm/ Dextrose 100 mls @ 100 mls/hr IV Q12H [facility] Stop: 04/28/17 12:29 Last Infusion: 03/03/17 12:59 Dose: Infused Potassium Chloride/Dextrose/Sod Cl (D5-0.9ns W/Kcl 20meq) 1,000 mls @ 75 mls/ hr IV .[id number] [facility] Stop: 04/30/17 14:41 Last Admin: 03/03/17 12:34 Dose: 75 mls/hr Insulin Aspart (Novolog Insulin Sliding Scale) 0 units SUBQ Q6H [facility] PRN Reason: Protocol Stop: 05/03/17 00:00 Mirtazapine (Remeron) 15 mg PO HS [facility] PRN Reason: Protocol Stop: 04/26/17 20:59 Last Admin: 03/03/17 23:30 Dose: 15 mg Miscellaneous (Probiotic Screen) 1 ea MC PRN PRN PRN Reason: PROTOCOL Stop: 04/21/17 16:25 Morphine Sulfate (Morphine) 1 mg IVP Q3H PRN PRN Reason: Pain (Moderate) Stop: 04/20/17 01:59 Last Admin: 03/03/17 18:48 Dose: 1 mg Nitroglycerin (Nitrostat) 0.4 mg SL Q5MIN PRN PRN Reason: Chest Pain Stop: 04/20/17 12:01 Nystatin (Nystop) 100,000 units TP BID PRN PRN Reason: SKIN EXCORIATIONS Stop: 04/21/17 15:35 Last Admin: 03/02/17 10:00 Dose: 100,000 units Ondansetron HCl (Zofran) 4 mg IV Q6H PRN PRN Reason: Nausea Stop: 04/20/17 03:38 General: no acute distress, well developed, well nourished HEENT: atraumatic, normocephalic, PERRLA, EOMI, moist mucous membrane Neck: supple, no thyromegaly Cardiovascular: S1S2, regular Lungs: clear to auscultation bilaterally, clear to percussion Abdomen: soft, no tender, no distended, no mass, no hepatomegaly Extremities: no cyanosis, no clubbing, no edema Neurological: awake, alert, oriented Skin: intact - Procedures Procedures: Procedures Procedure Code Date INSERT EMERGENCY AIRWAY 42227 02/19/17 INSERTION OF ENDOTRACHEAL AIRWAY INTO [place], VIA OPENING 0ND99PM 02/19/17 RESPIRATORY VENTILATION, GREATER THAN 96 CONSECUTIVE HOURS [id number] 02/19/17 VENT MGMT INPAT INIT DAY 02/19/17 VENT MGMT INPAT SUBQ 02/19/17 Infectious Disease Assmt/Plan - Problem List Patient Problems: All Active Problems Acute kidney failure (Acute) 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 Sepsis. 2. Pneumonia. 3. UTI, Candiduria. 4. Renal failure. 5. Hypotension 6. VDRF. - Plan Plan: Will continue Zyvox IV, and diflucan. continue meropenem. Nutritional Asmnt/Malnutr-PDOC - Dietary Evaluation Malnutrition Findings (Please click <Entered> for more info): Nutritional Asmnt/Malnutrition Start: 02/21/17 18: 20 Text: Status: Complete Freq: Document 02/21/17 18:21 OSKAR (Rec: 02/21/17 18:32 LCELLEN [email or web address]) Nutritional Asmnt/Malnutrition Patient General Information Nutritional Screening High Risk Consult Diagnosis gastric outlet obstruction Pertinent Medical Hx/Surgical Hx HTN, OA, DM, GERD Subjective Information Pt seen sleeping at the time of visit, attempted x 2. Spoke with RN, pt consumed 50% of breakfast and only the soup of lunch today, not much appetite, no complain of N/V. Pt will be NPO from midnight for GI exam tommorrow. Current Diet Order/ Nutrition Support no added salt 4gm, CCHO, no eggs, banana and cereal in morning Pertinent Medications colace, lasix, novolog, levaquin, piperacillin Pertinent Labs 02/20 Na 137, K 4.5, Cl 104, BUN 55, Cr 1.6, Glucose 137, POC 126-199 since admit, Ca 8. 3 Nutritional Hx/Data Height 1.57 m Height (Calculated Centimeters) 157.5 Current Weight (lbs) 97.023 kg Weight (Calculated Kilograms) 97.0 Weight (Calculated Grams) 95283.4 [place] Body Weight 110 % [place] Body Weight 194 Body Mass Index (BMI) 39.1 Weight Status Obese GI Symptoms GI Symptoms None Last BM none Difficult in: None Skin Integrity/Comment: multiple maceration, abrasion to right/left medial thigh Current %PO Poor (25-49%) Estimated Nutritional Goals BEE in Kcals: Adj wt of IBW Calories/Kcals/Kg 27-32 Kcals Calculated Protein: Adj wt of IBW Protein g/k-1.2 Protein Calculated 62-74 Fluid: ml Nutritional Problem 1. Problem Problem inadequate PO intake Etiology poor appetite Signs/Symptoms: PO intake 25-50% Malnutrition Alert Protein-Calorie Malnutrition N/A Is there a minimum of two criteria No selected? Query Text:Check all the applicable criteria. A minimum of two criteria are recommended for diagnosis of either severe or non-severe malnutrition. Intervention/Recommendation Comments 1. Continue with current diet as ordered. 2. Monitor PO intake, GI symptons, wt, labs and skin integrity 3. F/U as high risk in 2-3 days, 02/23-02/24 Expected Outcomes/Goals Expected Outcomes/Goals 1. PO intake to meet at least 75% of nutritional needs. 2. Wt stability, skin to remain intact, labs to improve
[2017-03-04] MEDS: INSULIN ASPART SLIDING SCALE 100 UNITS/ML UNIT SUBQ SCH ×6 (01:23→23:48)
[2017-03-04] MEDS: D5-0.9NS w/KCL 20mEq 1,000 ML IV SCH ×2 (04:42→20:45)
[2017-03-04 08:07] LABS: HEMOGLOBIN 9.8 gm/dL (12-16); MEAN CORPUSCULAR HEMOGLOBIN 29.1 pg (27.0-31.0); MEAN CORPUSCULAR HGB CONC 33.8 pg (28.0-36.0); MEAN PLATELET VOLUME 4.7 fl; RED BLOOD COUNT 3.38 Mil/cmm (3.80-5.20); RED CELL DISTRIBUTION WIDTH 13.4 % (11.5-20.0)
[2017-03-04] MEDS: Albuterol/Ipratropium Neb 3 ML AERS HHN SCH ×3 (08:17→18:49)
[2017-03-04] MEDS ORDERED: Albuterol/Ipratropium Neb 3 ML AERS HHN ONE (08:20)
[2017-03-04 08:29] LABS: ANION GAP 14.3 (7.0-16.0); CALCIUM SERUM 7.6 mg/dL (8.6-10.3); CARBON DIOXIDE 18.7 mEq/L (21.0-31.0); CREATININE - SERUM 1.9 mg/dL (0.6-1.2); GFR AFRICAN-AMERICAN 33.7 ml/min (>90); GFR NON AFRICAN-AMERICAN 27.9 ml/min
[2017-03-04] MEDS: Morphine Sulfate 2 mg/mL 1mL Syr IVP PRN ×3 (08:32→21:25)
[2017-03-04] MEDS: Chlorhexidine Gluconate 0.12% 15mL Mouthwash MM SCH ×2 (08:42→20:20)
[2017-03-04] MEDS: Linezolid 600mg/300mL 600 MG/300 ML BAG IV SCH ×2 (09:43→21:16)
[2017-03-04] MEDS: Multivitamin w/ Minerals Tab PO SCH (09:44)
--- NOTE | 2017-03-04 09:50 | GI Progress Note ---
Subjective - Review of Systems Subjective: NO EVENTS MICAELA NGT FEEDS Objective - Results Result Diagrams: 03/03/17 05:55 03/04/17 08:00 Recent Labs: Laboratory Last Values WBC 28.4 Th/cmm (4.8-10.8) H* 03/03/17 05:55 RBC 3.58 Mil/cmm (3.80-5.20) L 03/03/17 05:55 Hgb 10.4 gm/dL (12-16) L 03/03/17 05:55 Hct 30.9 % (41.0-60) L 03/03/17 05:55 MCV 86.2 fl (81-100) 03/03/17 05:55 MCH 29.0 pg (27.0-31.0) 03/03/17 05:55 MCHC Differential 33.6 pg (28.0-36.0) 03/03/17 05:55 RDW 13.4 % (11.5-20.0) 03/03/17 05:55 Plt Count 80 Th/cmm (150-400) L D 03/03/17 05:55 MPV 7.9 fl 03/03/17 05:55 Neutrophils % TRIAGE RN 02/25/17 04:50 Band Neutrophils % 5 % (0-10) 03/03/17 05:55 Lymphocytes % TRIAGE RN 02/25/17 04:50 Monocytes % TRIAGE RN 02/25/17 04:50 Eosinophils % TRIAGE RN 02/25/17 04:50 Basophils % TRIAGE RN 02/25/17 04:50 Neutrophils (Manual) 86 % (40-80) H 03/03/17 05:55 Lymphocytes 4 % (20-50) L 03/03/17 05:55 Monocytes 1 % (2-10) L 03/03/17 05:55 Eosinophils 4 % (0-5) 03/03/17 05:55 Metamyelocytes 1 % (0-0) H 02/18/17 23:35 Hypochromia 1+ 02/18/17 23:35 Platelet Estimate DECREASED PLATELETS (NORMAL) 03/03/17 05:55 PT 13.9 SECONDS (9.5-11.5) H 03/01/17 09:15 INR 1.32 (0.5-1.4) 03/01/17 09:15 PTT (Actin FS) 53.1 SECONDS (26.0-38.0) H 03/01/17 09:15 Specimen Source Arterial 03/03/17 16:47 Sample Site Right Radial 03/03/17 16:47 pH 7.23 (7.35-7.45) L* 03/03/17 16:47 pCO2 49.0 mmHg (35.0-45.0) H 03/03/17 16:47 pO2 53.0 mmHg (80.0-100.0) L 03/03/17 16:47 HCO3 19.0 mEq/L (20.0-26.0) L 03/03/17 16:47 Base Excess -7.1 mEq/L (-3.0-3.0) L 03/03/17 16:47 O2 Saturation 80.0 % (92.0-100.0) L 03/03/17 16:47 Jorje Test Positive 03/03/17 16:47 Vent Rate NA 03/03/17 16:47 Inspired O2 40 03/03/17 16:47 Tidal Volume NA 03/03/17 16:47 PEEP NA 03/03/17 16:47 Pressure (ins/psv/peep) NA 03/03/17 16:47 Critical Value LZHANG 03/03/17 16:47 Sodium 130 mEq/L (136-145) L 03/04/17 08:00 Potassium 4.0 mEq/L (3.5-5.1) 03/04/17 08:00 Chloride 101 mEq/L (98-107) 03/04/17 08:00 Carbon Dioxide 18.7 mEq/L (21.0-31.0) L 03/04/17 08:00 Anion Gap 14.3 (7.0-16.0) 03/04/17 08:00 BUN 37 mg/dL (7-25) H 03/04/17 08:00 Creatinine 1.9 mg/dL (0.6-1.2) H 03/04/17 08:00 Est GFR ( Amer) 33.7 ml/min (>90) 03/04/17 08:00 Est GFR (Non-Af Amer) 27.9 ml/min 03/04/17 08:00 BUN/Creatinine Ratio 19.5 03/04/17 08:00 Glucose 143 mg/dL (70-105) H 03/04/17 08:00 POC Glucose 155 MG/DL (70 - 105) H 03/04/17 01:08 Hemoglobin A1c % 5.8 % (4.0-6.0) 02/22/17 10:38 Whole Bld Lactic Acid 2.40 mmol/L (0.60-1.99) H* 02/27/17 15:04 Calcium 7.6 mg/dL (8.6-10.3) L 03/04/17 08:00 Phosphorus 2.5 mg/dL (2.5-5.0) 03/01/17 09:15 Magnesium 2.1 mg/dL (1.9-2.7) 03/01/17 09:15 Total Bilirubin 0.6 mg/dL (0.3-1.0) 03/01/17 09:15 Direct Bilirubin 0.09 mg/dL (0.0-0.2) 02/18/17 23:35 AST 20 U/L (13-39) 03/01/17 09:15 ALT 6 U/L (7-52) L 03/01/17 09:15 Alkaline Phosphatase 56 U/L (34-104) 03/01/17 09:15 Ammonia 38 umol/L (16-53) 03/01/17 17:28 B-Natriuretic Peptide 220.0 pg/mL (5.0-100.0) H 02/22/17 10:38 Total Protein 4.8 gm/dL (6.0-8.3) L 03/01/17 09:15 Albumin 3.1 gm/dL (3.7-5.3) L 03/01/17 09:15 Globulin 1.7 gm/dL 03/01/17 09:15 Albumin/Globulin Ratio 1.8 (1.0-1.8) 03/01/17 09:15 Amylase 36 U/L (29-103) 02/18/17 23:35 Lipase 10 U/L (11-82) L 02/18/17 23:35 Vitamin B12 860 pg/mL (232-1245) 02/26/17 04:45 Free T4 1.04 ng/dL (0.82-1.77) 02/25/17 04:50 Free T3 0.7 pg/mL (2.0-4.4) L 02/25/17 04:50 TSH 0.84 uIU/ml (0.34-5.60) 02/25/17 04:50 Urine Source [place] 02/27/17 15:00 Urine Color YELLOW 02/27/17 15:00 Urine Clarity CLOUDY (CLEAR) H 02/27/17 15:00 Urine pH 5.5 (4.6 - 8.0) 02/27/17 15:00 Ur Specific [place] <= 1.005 (1.005-1.030) 02/27/17 15:00 Urine Protein TRACE mg/dL (NEGATIVE) 02/27/17 15:00 Urine Glucose (UA) NEGATIVE mg/dL (NEGATIVE) 02/27/17 15:00 Urine Ketones NEGATIVE mg/dL (NEGATIVE) 02/27/17 15:00 Urine Blood LARGE (NEGATIVE) H 02/27/17 15:00 Urine Nitrate NEGATIVE (NEGATIVE) 02/27/17 15:00 Urine Bilirubin NEGATIVE (NEGATIVE) 02/27/17 15:00 Urine Urobilinogen 0.2 E.U./dL (0.2 - 1.0) 02/27/17 15:00 Ur Leukocyte Esterase LARGE (NEGATIVE) H 02/27/17 15:00 Urine RBC 10-25 /hpf (0-5) H 02/27/17 15:00 Urine WBC >100 /hpf (0-5) H 02/27/17 15:00 Ur Epithelial Cells MODERATE /lpf (FEW) 02/27/17 15:00 Urine Bacteria MODERATE /hpf (NONE SEEN) H 02/27/17 15:00 Urine Yeast MODERATE /hpf (NONE SEEN) H 02/20/17 16:15 Blood Type A POSITIVE 02/27/17 15:04 Antibody Screen NEGATIVE 02/27/17 15:04 Crossmatch See Detail 02/27/17 15:04 - Physical Exam Vitals and I&O: Vital Signs Temp 96.3 F 03/04/17 08:00 Pulse 89 03/04/17 08:45 Resp 24 03/04/17 08:00 BP 91/34 03/04/17 09:44 Pulse Ox 98 03/04/17 08:17 Intake & Output 03/03/17 03/04/17 03/04/17 18:59 06:59 18:59 Intake Total 152.428 2842.903 Output Total 750 Balance 891.245 0982.903 Weight (lbs) 105.007 kg Intake: Intake, IV Amount 516.396 4763.903 D5-0.9NS w/KCL 20mEq 1, 293.75 1000 000 ml @ 75 mls/hr IV . [id number] [facility] Rx#:[id number] Linezolid 600mg/300mL 600 300 300 mg In 300 ml @ 300 mls/ hr IV Q12HR [facility] Rx#: [id number] Meropenem 1 gm In 100 Dextrose 5% 100 ml @ 100 mls/hr IV Q12H [facility] Rx#: [id number] Norepinephrine 8 mg In 190.598 2.903 Sodium Chloride 0.9% 250 ml @ Per Protocol IV TITR [facility] Rx#:[id number] Pantoprazole 80 mg In 43.5 Sodium Chloride 0.9% 100 ml @ 10 mls/hr IV Q10H [facility] Rx#:[id number] Output: Urine 750 Other: Stool Characteristics Liquid Liquid Brown Brown Active Medications: Current Medications Acetaminophen (Tylenol) 650 mg PO Q4HR PRN PRN Reason: Pain (Mild) Stop: 04/20/17 12:01 Last Admin: 02/21/17 09:54 Dose: 650 mg Acetaminophen/Hydrocodone Bitart ([place] 5mg/325mg) 1 tab PO Q6H PRN PRN Reason: PAIN Stop: 04/20/17 13:24 Albumin Human (Albutein 25%) 12.5 gm IV Q8HR [facility] Stop: 03/05/17 20:59 Albuterol/Ipratropium (Duoneb Neb) 3 ml HHN Q4HRT PRN PRN Reason: Wheezing Stop: 04/27/17 19:59 Last Admin: 02/28/17 03:18 Dose: 3 ml Albuterol/Ipratropium (Duoneb Neb) 3 ml HHN [id number] [facility] Stop: 04/27/17 19:59 Last Admin: 03/04/17 08:17 Dose: 3 ml Aspirin (Ecotrin) 81 mg PO DAILY [facility] Stop: 04/21/17 08:59 Last Admin: 03/03/17 08:48 Dose: 81 mg Chlorhexidine Gluconate (Peridex) 15 ml MM 0800,1999 [facility] Stop: 04/28/17 19:59 Last Admin: 03/04/17 08:42 Dose: 15 ml Diltiazem HCl (Cardizem) 5 mg IVP Q4H PRN PRN Reason: HR > 120 Stop: 04/27/17 19:59 Last Admin: 02/27/17 04:59 Dose: 5 mg Docusate Sodium (Colace) 100 mg PO BID [facility] Stop: 04/20/17 16:59 Last Admin: 03/04/17 09:43 Dose: 100 mg Furosemide (Lasix) 40 mg PO DAILY [facility] Stop: 04/21/17 08:59 Last Admin: 03/04/17 09:44 Dose: Not Given Pantoprazole Sodium 80 mg/ (Sodium Chloride) 100 mls @ 10 mls/hr IV Q10H [facility] Stop: 04/20/17 08:59 Last Admin: 03/03/17 10:59 Dose: 10 mls/hr Linezolid (Zyvox) 600 mg in 300 mls @ 300 mls/hr IV Q12HR [facility] Stop: 04/22/17 20:59 Last Admin: 03/04/17 09:43 Dose: 300 mls/hr Levofloxacin (Levaquin Pb) 250 mg in 50 mls @ 50 mls/hr IV Q24HR [facility] Stop: 04/23/17 20:59 Last Admin: 03/03/17 23:33 Dose: 50 mls/hr Phenylephrine HCl 10 mg/ (Sodium Chloride) 250 mls @ 0 mls/hr IV TITR [facility]; Per Protocol PRN Reason: Protocol Stop: 04/28/17 07:59 Norepinephrine Bitartrate 8 mg (/ Sodium Chloride) 258 mls @ 0 mls/hr IV TITR [facility]; Per Protocol PRN Reason: Protocol Stop: 04/28/17 09:59 Last Titration: 03/03/17 19:15 Dose: 6 mcg/min, 11.61 mls/hr Meropenem 1 gm/ Dextrose 100 mls @ 100 mls/hr IV Q12H [facility] Stop: 04/28/17 12:29 Last Admin: 03/04/17 06:49 Dose: 100 mls/hr Potassium Chloride/Dextrose/Sod Cl (D5-0.9ns W/Kcl 20meq) 1,000 mls @ 75 mls/ hr IV .[id number] [facility] Stop: 04/30/17 14:41 Last Admin: 03/04/17 04:42 Dose: 75 mls/hr Insulin Aspart (Novolog Insulin Sliding Scale) 0 units SUBQ Q6H [facility] PRN Reason: Protocol Stop: 05/03/17 00:00 Last Admin: 03/04/17 09:34 Dose: Not Given Mirtazapine (Remeron) 15 mg PO HS [facility] PRN Reason: Protocol Stop: 04/26/17 20:59 Last Admin: 03/03/17 23:30 Dose: 15 mg Miscellaneous (Probiotic Screen) 1 ea MC PRN PRN PRN Reason: PROTOCOL Stop: 04/21/17 16:25 Morphine Sulfate (Morphine) 1 mg IVP Q3H PRN PRN Reason: Pain (Moderate) Stop: 04/20/17 01:59 Last Admin: 03/04/17 08:32 Dose: 1 mg Nitroglycerin (Nitrostat) 0.4 mg SL Q5MIN PRN PRN Reason: Chest Pain Stop: 04/20/17 12:01 Nystatin (Nystop) 100,000 units TP BID PRN PRN Reason: SKIN EXCORIATIONS Stop: 04/21/17 15:35 Last Admin: 03/02/17 10:00 Dose: 100,000 units Ondansetron HCl (Zofran) 4 mg IV Q6H PRN PRN Reason: Nausea Stop: 04/20/17 03:38 General: Alert, No acute distress, no Cooperative HEENT: Atraumatic, EOMI Neck: Supple, JVD, +2 carotid pulse wo bruit Cardiovascular: Regular rate, Normal S1, Normal S2 Lungs: Other (coarse rhonchi) Abdomen: Bowel sounds, Soft Extremities: Other (min edema) Neurological: Sensation intact Skin: no Rash Psych/Mental Status: Mood NL - Procedures Procedures: Procedures Procedure Code Date INSERT EMERGENCY AIRWAY 91201 02/19/17 INSERTION OF ENDOTRACHEAL AIRWAY INTO [place], VIA OPENING [id number] 02/19/17 RESPIRATORY VENTILATION, GREATER THAN 96 CONSECUTIVE HOURS [id number] 02/19/17 VENT MGMT INPAT INIT DAY 02/19/17 VENT MGMT INPAT SUBQ DAY 75032 02/19/17 Assessment/Plan - Problem List Patient Problems: All Active Problems Acute kidney failure (Acute) 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
[2017-03-04] MEDS: Pantoprazole 80 MG in Sodium Chloride 0.9% 100 ML IV SCH ×2 (10:48→19:10)
[2017-03-04 11:42] LABS: BAND NEUTROPHILE 6 % (0-10); EOSINOPHIL 8 % (0-5); LYMPHOCYTE 10 % (20-50); MONOCYTE 1 % (2-10); NEUTROPHILS 75 % (40-80); TOTAL CELLS COUNTED 100
[2017-03-04 11:43] LABS: PLATELET ESTIMATE SLIGHT DECREASED (NORMAL)
--- NOTE | 2017-03-04 12:16 | Internal Medicine Prog Note ---
Internal Medicine Subjective - Subjective Service Date: 03/04/17 (did not tolerate weaning) Patient seen and examined:: with staff Patient is:: awake, in bed Per staff patient has:: tolerating meds Internal Medicine Objective - Results Result Diagrams: 03/04/17 08:00 03/04/17 08:00 Recent Labs: Laboratory Last Values WBC 20.0 Th/cmm (4.8-10.8) H 03/04/17 08:00 RBC 3.38 Mil/cmm (3.80-5.20) L 03/04/17 08:00 Hgb 9.8 gm/dL (12-16) L 03/04/17 08:00 Hct 29.0 % (41.0-60) L 03/04/17 08:00 MCV 86.0 fl (81-100) 03/04/17 08:00 MCH 29.1 pg (27.0-31.0) 03/04/17 08:00 MCHC Differential 33.8 pg (28.0-36.0) 03/04/17 08:00 RDW 13.4 % (11.5-20.0) 03/04/17 08:00 Plt Count TELESALES REPRESENTATIVE 03/04/17 08:00 MPV 4.7 fl 03/04/17 08:00 Neutrophils % TELESALES REPRESENTATIVE 02/25/17 04:50 Band Neutrophils % 6 % (0-10) 03/04/17 08:00 Lymphocytes % TELESALES REPRESENTATIVE 02/25/17 04:50 Monocytes % TELESALES REPRESENTATIVE 02/25/17 04:50 Eosinophils % TELESALES REPRESENTATIVE 02/25/17 04:50 Basophils % TELESALES REPRESENTATIVE 02/25/17 04:50 Neutrophils (Manual) 75 % (40-80) 03/04/17 08:00 Lymphocytes 10 % (20-50) L 03/04/17 08:00 Monocytes 1 % (2-10) L 03/04/17 08:00 Eosinophils 8 % (0-5) H 03/04/17 08:00 Metamyelocytes 1 % (0-0) H 02/18/17 23:35 Hypochromia 1+ 02/18/17 23:35 Platelet Estimate SLIGHT DECREASED (NORMAL) 03/04/17 08:00 Platelet Morphology (NORMAL) 03/04/17 08:00 PT 13.9 SECONDS (9.5-11.5) H 03/01/17 09:15 INR 1.32 (0.5-1.4) 03/01/17 09:15 PTT (Actin FS) 53.1 SECONDS (26.0-38.0) H 03/01/17 09:15 Specimen Source Arterial 03/03/17 16:47 Sample Site Right Radial 03/03/17 16:47 pH 7.23 (7.35-7.45) L* 03/03/17 16:47 pCO2 49.0 mmHg (35.0-45.0) H 03/03/17 16:47 pO2 53.0 mmHg (80.0-100.0) L 03/03/17 16:47 HCO3 19.0 mEq/L (20.0-26.0) L 03/03/17 16:47 Base Excess -7.1 mEq/L (-3.0-3.0) L 03/03/17 16:47 O2 Saturation 80.0 % (92.0-100.0) L 03/03/17 16:47 Jorje Test Positive 03/03/17 16:47 Vent Rate NA 03/03/17 16:47 Inspired O2 40 03/03/17 16:47 Tidal Volume NA 03/03/17 16:47 PEEP NA 03/03/17 16:47 Pressure (ins/psv/peep) NA 03/03/17 16:47 Critical Value LZHANG 03/03/17 16:47 Sodium 130 mEq/L (136-145) L 03/04/17 08:00 Potassium 4.0 mEq/L (3.5-5.1) 03/04/17 08:00 Chloride 101 mEq/L (98-107) 03/04/17 08:00 Carbon Dioxide 18.7 mEq/L (21.0-31.0) L 03/04/17 08:00 Anion Gap 14.3 (7.0-16.0) 03/04/17 08:00 BUN 37 mg/dL (7-25) H 03/04/17 08:00 Creatinine 1.9 mg/dL (0.6-1.2) H 03/04/17 08:00 Est GFR ( Amer) 33.7 ml/min (>90) 03/04/17 08:00 Est GFR (Non-Af Amer) 27.9 ml/min 03/04/17 08:00 BUN/Creatinine Ratio 19.5 03/04/17 08:00 Glucose 143 mg/dL (70-105) H 03/04/17 08:00 POC Glucose 188 MG/DL (70 - 105) H 03/04/17 11:51 Hemoglobin A1c % 5.8 % (4.0-6.0) 02/22/17 10:38 Whole Bld Lactic Acid 2.40 mmol/L (0.60-1.99) H* 02/27/17 15:04 Calcium 7.6 mg/dL (8.6-10.3) L 03/04/17 08:00 Phosphorus 2.5 mg/dL (2.5-5.0) 03/01/17 09:15 Magnesium 2.1 mg/dL (1.9-2.7) 03/01/17 09:15 Total Bilirubin 0.6 mg/dL (0.3-1.0) 03/01/17 09:15 Direct Bilirubin 0.09 mg/dL (0.0-0.2) 02/18/17 23:35 AST 20 U/L (13-39) 03/01/17 09:15 ALT 6 U/L (7-52) L 03/01/17 09:15 Alkaline Phosphatase 56 U/L (34-104) 03/01/17 09:15 Ammonia 38 umol/L (16-53) 03/01/17 17:28 B-Natriuretic Peptide 220.0 pg/mL (5.0-100.0) H 02/22/17 10:38 Total Protein 4.8 gm/dL (6.0-8.3) L 03/01/17 09:15 Albumin 3.1 gm/dL (3.7-5.3) L 03/01/17 09:15 Globulin 1.7 gm/dL 03/01/17 09:15 Albumin/Globulin Ratio 1.8 (1.0-1.8) 03/01/17 09:15 Amylase 36 U/L (29-103) 02/18/17 23:35 Lipase 10 U/L (11-82) L 02/18/17 23:35 Vitamin B12 860 pg/mL (232-1245) 02/26/17 04:45 Free T4 1.04 ng/dL (0.82-1.77) 02/25/17 04:50 Free T3 0.7 pg/mL (2.0-4.4) L 02/25/17 04:50 TSH 0.84 uIU/ml (0.34-5.60) 02/25/17 04:50 Urine Source [place] 02/27/17 15:00 Urine Color YELLOW 02/27/17 15:00 Urine Clarity CLOUDY (CLEAR) H 02/27/17 15:00 Urine pH 5.5 (4.6 - 8.0) 02/27/17 15:00 Ur Specific [place] <= 1.005 (1.005-1.030) 02/27/17 15:00 Urine Protein TRACE mg/dL (NEGATIVE) 02/27/17 15:00 Urine Glucose (UA) NEGATIVE mg/dL (NEGATIVE) 02/27/17 15:00 Urine Ketones NEGATIVE mg/dL (NEGATIVE) 02/27/17 15:00 Urine Blood LARGE (NEGATIVE) H 02/27/17 15:00 Urine Nitrate NEGATIVE (NEGATIVE) 02/27/17 15:00 Urine Bilirubin NEGATIVE (NEGATIVE) 02/27/17 15:00 Urine Urobilinogen 0.2 E.U./dL (0.2 - 1.0) 02/27/17 15:00 Ur Leukocyte Esterase LARGE (NEGATIVE) H 02/27/17 15:00 Urine RBC 10-25 /hpf (0-5) H 02/27/17 15:00 Urine WBC >100 /hpf (0-5) H 02/27/17 15:00 Ur Epithelial Cells MODERATE /lpf (FEW) 02/27/17 15:00 Urine Bacteria MODERATE /hpf (NONE SEEN) H 02/27/17 15:00 Urine Yeast MODERATE /hpf (NONE SEEN) H 02/20/17 16:15 Blood Type A POSITIVE 02/27/17 15:04 Antibody Screen NEGATIVE 02/27/17 15:04 Crossmatch See Detail 02/27/17 15:04 - Physical Exam Vitals and I&O: Vital Signs Temp 96.3 F 03/04/17 08:00 Pulse 97 03/04/17 09:45 Resp 20 03/04/17 09:00 BP 91/34 03/04/17 09:45 Pulse Ox 99 03/04/17 09:00 Intake & Output 03/03/17 03/04/17 03/04/17 18:59 06:59 18:59 Intake Total 1057.567 3743.903 193.887 Output Total 1550 Balance -528.633 4517.903 193.887 Weight (lbs) 231 lb 8 oz Intake: Intake, IV Amount 381.155 1021.903 193.887 D5-0.9NS w/KCL 20mEq 1, 293.75 1000 000 ml @ 75 mls/hr IV . [id number] [facility] Rx#:[id number] Linezolid 600mg/300mL 600 300 300 mg In 300 ml @ 300 mls/ hr IV Q12HR [facility] Rx#: [id number] Meropenem 1 gm In 100 Dextrose 5% 100 ml @ 100 mls/hr IV Q12H [facility] Rx#: [id number] Norepinephrine 8 mg In 190.598 2.903 193.887 Sodium Chloride 0.9% 250 ml @ Per Protocol IV TITR [facility] Rx#:[id number] Pantoprazole 80 mg In 43.5 100 0 Sodium Chloride 0.9% 100 ml @ 10 mls/hr IV Q10H [facility] Rx#:[id number] Tube Feeding 360 Other 30 Output: Urine 1550 Other: Stool Characteristics Liquid Liquid Soft Brown Brown Active Medications: Current Medications Acetaminophen (Tylenol) 650 mg PO Q4HR PRN PRN Reason: Pain (Mild) Stop: 04/20/17 12:01 Last Admin: 02/21/17 09:54 Dose: 650 mg Acetaminophen/Hydrocodone Bitart ([place] 5mg/325mg) 1 tab PO Q6H PRN PRN Reason: PAIN Stop: 04/20/17 13:24 Albumin Human (Albutein 25%) 12.5 gm IV Q8HR [facility] Stop: 03/05/17 20:59 Albuterol/Ipratropium (Duoneb Neb) 3 ml HHN Q4HRT PRN PRN Reason: Wheezing Stop: 04/27/17 19:59 Last Admin: 02/28/17 03:18 Dose: 3 ml Albuterol/Ipratropium (Duoneb Neb) 3 ml HHN [id number] [facility] Stop: 04/27/17 19:59 Last Admin: 03/04/17 08:17 Dose: 3 ml Aspirin (Ecotrin) 81 mg PO DAILY [facility] Stop: 04/21/17 08:59 Last Admin: 03/04/17 11:57 Dose: 81 mg Chlorhexidine Gluconate (Peridex) 15 ml MM 0800,1999 [facility] Stop: 04/28/17 19:59 Last Admin: 03/04/17 08:42 Dose: 15 ml Diltiazem HCl (Cardizem) 5 mg IVP Q4H PRN PRN Reason: HR > 120 Stop: 04/27/17 19:59 Last Admin: 02/27/17 04:59 Dose: 5 mg Docusate Sodium (Colace) 100 mg PO BID [facility] Stop: 04/20/17 16:59 Last Admin: 03/04/17 09:43 Dose: 100 mg Furosemide (Lasix) 40 mg PO DAILY [facility] Stop: 04/21/17 08:59 Last Admin: 03/04/17 09:44 Dose: Not Given Pantoprazole Sodium 80 mg/ (Sodium Chloride) 100 mls @ 10 mls/hr IV Q10H [facility] Stop: 04/20/17 08:59 Last Admin: 03/04/17 10:48 Dose: 10 mls/hr Linezolid (Zyvox) 600 mg in 300 mls @ 300 mls/hr IV Q12HR [facility] Stop: 04/22/17 20:59 Last Admin: 03/04/17 09:43 Dose: 300 mls/hr Levofloxacin (Levaquin Pb) 250 mg in 50 mls @ 50 mls/hr IV Q24HR [facility] Stop: 04/23/17 20:59 Last Admin: 03/03/17 23:33 Dose: 50 mls/hr Phenylephrine HCl 10 mg/ (Sodium Chloride) 250 mls @ 0 mls/hr IV TITR [facility]; Per Protocol PRN Reason: Protocol Stop: 04/28/17 07:59 Norepinephrine Bitartrate 8 mg (/ Sodium Chloride) 258 mls @ 0 mls/hr IV TITR [facility]; Per Protocol PRN Reason: Protocol Stop: 04/28/17 09:59 Last Admin: 03/04/17 11:57 Dose: 6 mcg/min, 11.61 mls/hr Meropenem 1 gm/ Dextrose 100 mls @ 100 mls/hr IV Q12H [facility] Stop: 04/28/17 12:29 Last Admin: 03/04/17 06:49 Dose: 100 mls/hr Potassium Chloride/Dextrose/Sod Cl (D5-0.9ns W/Kcl 20meq) 1,000 mls @ 75 mls/ hr IV .[id number] [facility] Stop: 04/30/17 14:41 Last Admin: 03/04/17 04:42 Dose: 75 mls/hr Insulin Aspart (Novolog Insulin Sliding Scale) 0 units SUBQ Q6H [facility] PRN Reason: Protocol Stop: 05/03/17 00:00 Last Admin: 03/04/17 09:34 Dose: Not Given Mirtazapine (Remeron) 15 mg PO HS [facility] PRN Reason: Protocol Stop: 04/26/17 20:59 Last Admin: 03/03/17 23:30 Dose: 15 mg Miscellaneous (Probiotic Screen) 1 ea MC PRN PRN PRN Reason: PROTOCOL Stop: 04/21/17 16:25 Morphine Sulfate (Morphine) 1 mg IVP Q3H PRN PRN Reason: Pain (Moderate) Stop: 04/20/17 01:59 Last Admin: 03/04/17 08:32 Dose: 1 mg Nitroglycerin (Nitrostat) 0.4 mg SL Q5MIN PRN PRN Reason: Chest Pain Stop: 04/20/17 12:01 Nystatin (Nystop) 100,000 units TP BID PRN PRN Reason: SKIN EXCORIATIONS Stop: 04/21/17 15:35 Last Admin: 03/02/17 10:00 Dose: 100,000 units Ondansetron HCl (Zofran) 4 mg IV Q6H PRN PRN Reason: Nausea Stop: 04/20/17 03:38 General: weak, alert HEENT: NC/AT, PERRLA Neck: Supple Lungs: ronchi Abdomen: soft, non-tender, non-distended Extremities: excoriation Neurological: no change - Procedures Procedures: Procedures Procedure Code Date INSERT EMERGENCY AIRWAY 07345 02/19/17 INSERTION OF ENDOTRACHEAL AIRWAY INTO [place], VIA OPENING [id number] 02/19/17 RESPIRATORY VENTILATION, GREATER THAN 96 CONSECUTIVE HOURS [id number] 02/19/17 VENT MGMT INPAT INIT DAY 02/19/17 VENT MGMT INPAT SUBQ DAY 02/19/17 Internal Medicine Assmt/Plan - Assessment Assessment: Acute kidney failure (Acute) 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 Azotemia (Acute) R79.89 Bradycardia (Acute) R00.1 COPD (chronic obstructive pulmonary disease) (Acute) Cardiomegaly (Acute) I51.7 Chest pain (Acute) R07.9 Decubitus ulcer of buttock, 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 Acute respiratory failure - Plan Plan: continue vent support monitor glucose continue ivabx as per id follow up labs in am continue current orders Nutritional Asmnt/Malnutr-PDOC - Dietary Evaluation Malnutrition Findings (Please click <Entered> for more info): Nutritional Asmnt/Malnutrition Start: 02/21/17 18: 20 Text: Status: Complete Freq: Document 02/21/17 18:21 [email or web address] (Rec: 02/21/17 18:32 LCHENG [place] [id number]) Nutritional Asmnt/Malnutrition Patient General Information Nutritional Screening High Risk Consult Diagnosis gastric outlet obstruction Pertinent Medical Hx/Surgical Hx HTN, OA, DM, GERD Subjective Information Pt seen sleeping at the time of visit, attempted x 2. Spoke with RN, pt consumed 50% of breakfast and only the soup of lunch today, not much appetite, no complain of N/V. Pt will be NPO from midnight for GI exam tommorrow. Current Diet Order/ Nutrition Support no added salt 4gm, CCHO, no eggs, banana and cereal in morning Pertinent Medications colace, lasix, novolog, levaquin, piperacillin Pertinent Labs 02/20 Na 137, K 4.5, Cl 104, BUN 55, Cr 1.6, Glucose 137, POC 126-199 since admit, Ca 8. 3 Nutritional Hx/Data Height 5 ft 2 in Height (Calculated Centimeters) 157.5 Current Weight (lbs) 213 lb 14.4 oz Weight (Calculated Kilograms) 97.0 Weight (Calculated Grams) 37704.4 [place] Body Weight 110 % [place] Body Weight 194 Body Mass Index (BMI) 39.1 Weight Status Obese GI Symptoms GI Symptoms None Last BM none Difficult in: None Skin Integrity/Comment: multiple maceration, abrasion to right/left medial thigh Current %PO Poor (25-49%) Estimated Nutritional Goals BEE in Kcals: Adj wt of IBW Calories/Kcals/Kg 27-32 Kcals Calculated Protein: Adj wt of IBW Protein g/k-1.2 Protein Calculated 62-74 Fluid: ml Nutritional Problem 1. Problem Problem inadequate PO intake Etiology poor appetite Signs/Symptoms: PO intake 25-50% Malnutrition Alert Protein-Calorie Malnutrition N/A Is there a minimum of two criteria No selected? Query Text:Check all the applicable criteria. A minimum of two criteria are recommended for diagnosis of either severe or non-severe malnutrition. Intervention/Recommendation Comments 1. Continue with current diet as ordered. 2. Monitor PO intake, GI symptons, wt, labs and skin integrity 3. F/U as high risk in 2-3 days, 02/23-02/24 Expected Outcomes/Goals Expected Outcomes/Goals 1. PO intake to meet at least 75% of nutritional needs. 2. Wt stability, skin to remain intact, labs to improve
--- NOTE | 2017-03-04 14:24 | Infectious Disease Prog Note ---
Infectious Disease Subjective - Review of Systems Service Date: 03/04/17 Subjective: Remains on vent intubated orally. Infectious Disease Objective - Results Result Diagrams: 03/04/17 08:00 03/04/17 08:00 Recent Labs: Laboratory Last Values WBC 20.0 Th/cmm (4.8-10.8) H 03/04/17 08:00 RBC 3.38 Mil/cmm (3.80-5.20) L 03/04/17 08:00 Hgb 9.8 gm/dL (12-16) L 03/04/17 08:00 Hct 29.0 % (41.0-60) L 03/04/17 08:00 MCV 86.0 fl (81-100) 03/04/17 08:00 MCH 29.1 pg (27.0-31.0) 03/04/17 08:00 MCHC Differential 33.8 pg (28.0-36.0) 03/04/17 08:00 RDW 13.4 % (11.5-20.0) 03/04/17 08:00 Plt Count [employer] 03/04/17 08:00 MPV 4.7 fl 03/04/17 08:00 Neutrophils % [employer] 02/25/17 04:50 Band Neutrophils % 6 % (0-10) 03/04/17 08:00 Lymphocytes % [employer] 02/25/17 04:50 Monocytes % [employer] 02/25/17 04:50 Eosinophils % [employer] 02/25/17 04:50 Basophils % [employer] 02/25/17 04:50 Neutrophils (Manual) 75 % (40-80) 03/04/17 08:00 Lymphocytes 10 % (20-50) L 03/04/17 08:00 Monocytes 1 % (2-10) L 03/04/17 08:00 Eosinophils 8 % (0-5) H 03/04/17 08:00 Metamyelocytes 1 % (0-0) H 02/18/17 23:35 Hypochromia 1+ 02/18/17 23:35 Platelet Estimate SLIGHT DECREASED (NORMAL) 03/04/17 08:00 Platelet Morphology (NORMAL) 03/04/17 08:00 PT 13.9 SECONDS (9.5-11.5) H 03/01/17 09:15 INR 1.32 (0.5-1.4) 03/01/17 09:15 PTT (Actin FS) 53.1 SECONDS (26.0-38.0) H 03/01/17 09:15 Specimen Source Arterial 03/03/17 16:47 Sample Site Right Radial 03/03/17 16:47 pH 7.23 (7.35-7.45) L* 03/03/17 16:47 pCO2 49.0 mmHg (35.0-45.0) H 03/03/17 16:47 pO2 53.0 mmHg (80.0-100.0) L 03/03/17 16:47 HCO3 19.0 mEq/L (20.0-26.0) L 03/03/17 16:47 Base Excess -7.1 mEq/L (-3.0-3.0) L 03/03/17 16:47 O2 Saturation 80.0 % (92.0-100.0) L 03/03/17 16:47 Jorje Test Positive 03/03/17 16:47 Vent Rate NA 03/03/17 16:47 Inspired O2 40 03/03/17 16:47 Tidal Volume NA 03/03/17 16:47 PEEP NA 03/03/17 16:47 Pressure (ins/psv/peep) NA 03/03/17 16:47 Critical Value LZHANG 03/03/17 16:47 Sodium 130 mEq/L (136-145) L 03/04/17 08:00 Potassium 4.0 mEq/L (3.5-5.1) 03/04/17 08:00 Chloride 101 mEq/L (98-107) 03/04/17 08:00 Carbon Dioxide 18.7 mEq/L (21.0-31.0) L 03/04/17 08:00 Anion Gap 14.3 (7.0-16.0) 03/04/17 08:00 BUN 37 mg/dL (7-25) H 03/04/17 08:00 Creatinine 1.9 mg/dL (0.6-1.2) H 03/04/17 08:00 Est GFR ( Amer) 33.7 ml/min (>90) 03/04/17 08:00 Est GFR (Non-Af Amer) 27.9 ml/min 03/04/17 08:00 BUN/Creatinine Ratio 19.5 03/04/17 08:00 Glucose 143 mg/dL (70-105) H 03/04/17 08:00 POC Glucose 188 MG/DL (70 - 105) H 03/04/17 11:51 Hemoglobin A1c % 5.8 % (4.0-6.0) 02/22/17 10:38 Whole Bld Lactic Acid 2.40 mmol/L (0.60-1.99) H* 02/27/17 15:04 Calcium 7.6 mg/dL (8.6-10.3) L 03/04/17 08:00 Phosphorus 2.5 mg/dL (2.5-5.0) 03/01/17 09:15 Magnesium 2.1 mg/dL (1.9-2.7) 03/01/17 09:15 Total Bilirubin 0.6 mg/dL (0.3-1.0) 03/01/17 09:15 Direct Bilirubin 0.09 mg/dL (0.0-0.2) 02/18/17 23:35 AST 20 U/L (13-39) 03/01/17 09:15 ALT 6 U/L (7-52) L 03/01/17 09:15 Alkaline Phosphatase 56 U/L (34-104) 03/01/17 09:15 Ammonia 38 umol/L (16-53) 03/01/17 17:28 B-Natriuretic Peptide 220.0 pg/mL (5.0-100.0) H 02/22/17 10:38 Total Protein 4.8 gm/dL (6.0-8.3) L 03/01/17 09:15 Albumin 3.1 gm/dL (3.7-5.3) L 03/01/17 09:15 Globulin 1.7 gm/dL 03/01/17 09:15 Albumin/Globulin Ratio 1.8 (1.0-1.8) 03/01/17 09:15 Amylase 36 U/L (29-103) 02/18/17 23:35 Lipase 10 U/L (11-82) L 02/18/17 23:35 Vitamin B12 860 pg/mL (232-1245) 02/26/17 04:45 Free T4 1.04 ng/dL (0.82-1.77) 02/25/17 04:50 Free T3 0.7 pg/mL (2.0-4.4) L 02/25/17 04:50 TSH 0.84 uIU/ml (0.34-5.60) 02/25/17 04:50 Urine Source [place] 02/27/17 15:00 Urine Color YELLOW 02/27/17 15:00 Urine Clarity CLOUDY (CLEAR) H 02/27/17 15:00 Urine pH 5.5 (4.6 - 8.0) 02/27/17 15:00 Ur Specific [place] <= 1.005 (1.005-1.030) 02/27/17 15:00 Urine Protein TRACE mg/dL (NEGATIVE) 02/27/17 15:00 Urine Glucose (UA) NEGATIVE mg/dL (NEGATIVE) 02/27/17 15:00 Urine Ketones NEGATIVE mg/dL (NEGATIVE) 02/27/17 15:00 Urine Blood LARGE (NEGATIVE) H 02/27/17 15:00 Urine Nitrate NEGATIVE (NEGATIVE) 02/27/17 15:00 Urine Bilirubin NEGATIVE (NEGATIVE) 02/27/17 15:00 Urine Urobilinogen 0.2 E.U./dL (0.2 - 1.0) 02/27/17 15:00 Ur Leukocyte Esterase LARGE (NEGATIVE) H 02/27/17 15:00 Urine RBC 10-25 /hpf (0-5) H 02/27/17 15:00 Urine WBC >100 /hpf (0-5) H 02/27/17 15:00 Ur Epithelial Cells MODERATE /lpf (FEW) 02/27/17 15:00 Urine Bacteria MODERATE /hpf (NONE SEEN) H 02/27/17 15:00 Urine Yeast MODERATE /hpf (NONE SEEN) H 02/20/17 16:15 Blood Type A POSITIVE 02/27/17 15:04 Antibody Screen NEGATIVE 02/27/17 15:04 Crossmatch See Detail 02/27/17 15:04 - Physical Exam Vitals and I&O: Vital Signs Temp 96 F 03/04/17 12:00 Pulse 97 03/04/17 12:39 Resp 30 03/04/17 12:00 BP 83/48 03/04/17 12:00 Pulse Ox 97 03/04/17 12:39 Intake & Output 03/03/17 03/04/17 03/04/17 18:59 06:59 18:59 Intake Total 5721.694 7268.903 293.887 Output Total 1550 Balance -527.693 5069.903 293.887 Weight (lbs) 105.007 kg Intake: Intake, IV Amount 439.041 3315.903 293.887 D5-0.9NS w/KCL 20mEq 1, 293.75 1000 000 ml @ 75 mls/hr IV . [id number] [facility] Rx#:[id number] Linezolid 600mg/300mL 600 300 300 mg In 300 ml @ 300 mls/ hr IV Q12HR [facility] Rx#: [id number] Meropenem 1 gm In 100 100 Dextrose 5% 100 ml @ 100 mls/hr IV Q12H [facility] Rx#: [id number] Norepinephrine 8 mg In 190.598 2.903 193.887 Sodium Chloride 0.9% 250 ml @ Per Protocol IV TITR PATRIA Rx#:[id number] Pantoprazole 80 mg In 43.5 100 0 Sodium Chloride 0.9% 100 ml @ 10 mls/hr IV Q10H [facility] Rx#:[id number] Tube Feeding 360 Other 30 Output: Urine 1550 Other: Stool Characteristics Liquid Liquid Soft Brown Brown Active Medications: Current Medications Acetaminophen (Tylenol) 650 mg PO Q4HR PRN PRN Reason: Pain (Mild) Stop: 04/20/17 12:01 Last Admin: 02/21/17 09:54 Dose: 650 mg Acetaminophen/Hydrocodone Bitart ([place] 5mg/325mg) 1 tab PO Q6H PRN PRN Reason: PAIN Stop: 04/20/17 13:24 Albumin Human (Albutein 25%) 12.5 gm IV Q8HR [facility] Stop: 03/05/17 20:59 Albuterol/Ipratropium (Duoneb Neb) 3 ml HHN Q4HRT PRN PRN Reason: Wheezing Stop: 04/27/17 19:59 Last Admin: 02/28/17 03:18 Dose: 3 ml Albuterol/Ipratropium (Duoneb Neb) 3 ml HHN [id number] [facility] Stop: 04/27/17 19:59 Last Admin: 03/04/17 12:39 Dose: 3 ml Aspirin (Ecotrin) 81 mg PO DAILY [facility] Stop: 04/21/17 08:59 Last Admin: 03/04/17 11:57 Dose: 81 mg Chlorhexidine Gluconate (Peridex) 15 ml MM 08,1999 [facility] Stop: 04/28/17 19:59 Last Admin: 03/04/17 08:42 Dose: 15 ml Diltiazem HCl (Cardizem) 5 mg IVP Q4H PRN PRN Reason: HR > 120 Stop: 04/27/17 19:59 Last Admin: 02/27/17 04:59 Dose: 5 mg Docusate Sodium (Colace) 100 mg PO BID [facility] Stop: 04/20/17 16:59 Last Admin: 03/04/17 09:43 Dose: 100 mg Furosemide (Lasix) 40 mg PO DAILY [facility] Stop: 04/21/17 08:59 Last Admin: 03/04/17 09:44 Dose: Not Given Pantoprazole Sodium 80 mg/ (Sodium Chloride) 100 mls @ 10 mls/hr IV Q10H [facility] Stop: 04/20/17 08:59 Last Admin: 03/04/17 10:48 Dose: 10 mls/hr Linezolid (Zyvox) 600 mg in 300 mls @ 300 mls/hr IV Q12HR [facility] Stop: 04/22/17 20:59 Last Admin: 03/04/17 09:43 Dose: 300 mls/hr Levofloxacin (Levaquin Pb) 250 mg in 50 mls @ 50 mls/hr IV Q24HR [facility] Stop: 04/23/17 20:59 Last Admin: 03/03/17 23:33 Dose: 50 mls/hr Phenylephrine HCl 10 mg/ (Sodium Chloride) 250 mls @ 0 mls/hr IV TITR PATRIA; Per Protocol PRN Reason: Protocol Stop: 04/28/17 07:59 Norepinephrine Bitartrate 8 mg (/ Sodium Chloride) 258 mls @ 0 mls/hr IV TITR PATRIA; Per Protocol PRN Reason: Protocol Stop: 04/28/17 09:59 Last Admin: 03/04/17 11:57 Dose: 6 mcg/min, 11.61 mls/hr Meropenem 1 gm/ Dextrose 100 mls @ 100 mls/hr IV Q12H [facility] Stop: 04/28/17 12:29 Last Admin: 03/04/17 12:24 Dose: 100 mls/hr Potassium Chloride/Dextrose/Sod Cl (D5-0.9ns W/Kcl 20meq) 1,000 mls @ 75 mls/ hr IV .[id number] PATRIA Stop: 04/30/17 14:41 Last Admin: 03/04/17 04:42 Dose: 75 mls/hr Insulin Aspart (Novolog Insulin Sliding Scale) 0 units SUBQ Q6H PATRIA PRN Reason: Protocol Stop: 05/03/17 00:00 Last Admin: 03/04/17 12:17 Dose: 2 units Mirtazapine (Remeron) 15 mg PO HS PATRIA PRN Reason: Protocol Stop: 04/26/17 20:59 Last Admin: 03/03/17 23:30 Dose: 15 mg Miscellaneous (Probiotic Screen) 1 ea MC PRN PRN PRN Reason: PROTOCOL Stop: 04/21/17 16:25 Morphine Sulfate (Morphine) 1 mg IVP Q3H PRN PRN Reason: Pain (Moderate) Stop: 04/20/17 01:59 Last Admin: 03/04/17 08:32 Dose: 1 mg Nitroglycerin (Nitrostat) 0.4 mg SL Q5MIN PRN PRN Reason: Chest Pain Stop: 04/20/17 12:01 Nystatin (Nystop) 100,000 units TP BID PRN PRN Reason: SKIN EXCORIATIONS Stop: 04/21/17 15:35 Last Admin: 03/02/17 10:00 Dose: 100,000 units Ondansetron HCl (Zofran) 4 mg IV Q6H PRN PRN Reason: Nausea Stop: 04/20/17 03:38 General: no acute distress, well developed, well nourished HEENT: atraumatic, normocephalic, PERRLA, EOMI, moist mucous membrane Neck: supple, no thyromegaly Cardiovascular: S1S2, regular Lungs: clear to auscultation bilaterally, clear to percussion Abdomen: soft, no tender, no distended, no mass, no rebound Extremities: no cyanosis, no clubbing, no edema Neurological: awake, alert, oriented Skin: intact, no rash - Procedures Procedures: Procedures Procedure Code Date INSERT EMERGENCY AIRWAY 56762 02/19/17 INSERTION OF ENDOTRACHEAL AIRWAY INTO [place], VIA OPENING [id number] 02/19/17 RESPIRATORY VENTILATION, GREATER THAN 96 CONSECUTIVE HOURS [id number] 02/19/17 VENT MGMT INPAT INIT DAY 02/19/17 VENT MGMT INPAT SUBQ DAY 02/19/17 Infectious Disease Assmt/Plan - Problem List Patient Problems: All Active Problems Acute kidney failure (Acute) 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 Sepsis. 2. Pneumonia. 3. UTI, Candiduria. 4. Renal failure. 5. Hypotension 6. VDRF. - Plan Plan: Will continue Zyvox IV, and diflucan. continue meropenem. Nutritional Asmnt/Malnutr-PDOC - Dietary Evaluation Malnutrition Findings (Please click <Entered> for more info): Nutritional Asmnt/Malnutrition Start: 02/21/17 18: 20 Text: Status: Complete Freq: Document 02/21/17 18:21 LCHENG (Rec: 02/21/17 18:32 [email or web address] [email or web address]) Nutritional Asmnt/Malnutrition Patient General Information Nutritional Screening High Risk Consult Diagnosis gastric outlet obstruction Pertinent Medical Hx/Surgical Hx HTN, OA, DM, GERD Subjective Information Pt seen sleeping at the time of visit, attempted x 2. Spoke with RN, pt consumed 50% of breakfast and only the soup of lunch today, not much appetite, no complain of N/V. Pt will be NPO from midnight for GI exam tommorrow. Current Diet Order/ Nutrition Support no added salt 4gm, CCHO, no eggs, banana and cereal in morning Pertinent Medications colace, lasix, novolog, levaquin, piperacillin Pertinent Labs 02/20 Na 137, K 4.5, Cl 104, BUN 55, Cr 1.6, Glucose 137, POC 126-199 since admit, Ca 8. 3 Nutritional Hx/Data Height 1.57 m Height (Calculated Centimeters) 157.5 Current Weight (lbs) 97.023 kg Weight (Calculated Kilograms) 97.0 Weight (Calculated Grams) 84978.4 [place] Body Weight 110 % [place] Body Weight 194 Body Mass Index (BMI) 39.1 Weight Status Obese GI Symptoms GI Symptoms None Last BM none Difficult in: None Skin Integrity/Comment: multiple maceration, abrasion to right/left medial thigh Current %PO Poor (25-49%) Estimated Nutritional Goals BEE in Kcals: Adj wt of IBW Calories/Kcals/Kg 27-32 Kcals Calculated Protein: Adj wt of IBW Protein g/k-1.2 Protein Calculated 62-74 Fluid: ml Nutritional Problem 1. Problem Problem inadequate PO intake Etiology poor appetite Signs/Symptoms: PO intake 25-50% Malnutrition Alert Protein-Calorie Malnutrition N/A Is there a minimum of two criteria No selected? Query Text:Check all the applicable criteria. A minimum of two criteria are recommended for diagnosis of either severe or non-severe malnutrition. Intervention/Recommendation Comments 1. Continue with current diet as ordered. 2. Monitor PO intake, GI symptons, wt, labs and skin integrity 3. F/U as high risk in 2-3 days, 02/23-02/24 Expected Outcomes/Goals Expected Outcomes/Goals 1. PO intake to meet at least 75% of nutritional needs. 2. Wt stability, skin to remain intact, labs to improve
--- NOTE | 2017-03-04 14:48 | General Progress Note ---
Subjective - Review of Systems Service Date: 03/04/17 Subjective: much alert, on vent Objective - Results Result Diagrams: 03/04/17 08:00 03/04/17 08:00 Recent Labs: Laboratory Last Values WBC 20.0 Th/cmm (4.8-10.8) H 03/04/17 08:00 RBC 3.38 Mil/cmm (3.80-5.20) L 03/04/17 08:00 Hgb 9.8 gm/dL (12-16) L 03/04/17 08:00 Hct 29.0 % (41.0-60) L 03/04/17 08:00 MCV 86.0 fl (81-100) 03/04/17 08:00 MCH 29.1 pg (27.0-31.0) 03/04/17 08:00 MCHC Differential 33.8 pg (28.0-36.0) 03/04/17 08:00 RDW 13.4 % (11.5-20.0) 03/04/17 08:00 Plt Count HAND COPER 03/04/17 08:00 MPV 4.7 fl 03/04/17 08:00 Neutrophils % HAND COPER 02/25/17 04:50 Band Neutrophils % 6 % (0-10) 03/04/17 08:00 Lymphocytes % HAND COPER 02/25/17 04:50 Monocytes % HAND COPER 02/25/17 04:50 Eosinophils % HAND COPER 02/25/17 04:50 Basophils % HAND COPER 02/25/17 04:50 Neutrophils (Manual) 75 % (40-80) 03/04/17 08:00 Lymphocytes 10 % (20-50) L 03/04/17 08:00 Monocytes 1 % (2-10) L 03/04/17 08:00 Eosinophils 8 % (0-5) H 03/04/17 08:00 Metamyelocytes 1 % (0-0) H 02/18/17 23:35 Hypochromia 1+ 02/18/17 23:35 Platelet Estimate SLIGHT DECREASED (NORMAL) 03/04/17 08:00 Platelet Morphology (NORMAL) 03/04/17 08:00 PT 13.9 SECONDS (9.5-11.5) H 03/01/17 09:15 INR 1.32 (0.5-1.4) 03/01/17 09:15 PTT (Actin FS) 53.1 SECONDS (26.0-38.0) H 03/01/17 09:15 Specimen Source Arterial 03/03/17 16:47 Sample Site Right Radial 03/03/17 16:47 pH 7.23 (7.35-7.45) L* 03/03/17 16:47 pCO2 49.0 mmHg (35.0-45.0) H 03/03/17 16:47 pO2 53.0 mmHg (80.0-100.0) L 03/03/17 16:47 HCO3 19.0 mEq/L (20.0-26.0) L 03/03/17 16:47 Base Excess -7.1 mEq/L (-3.0-3.0) L 03/03/17 16:47 O2 Saturation 80.0 % (92.0-100.0) L 03/03/17 16:47 Jorje Test Positive 03/03/17 16:47 Vent Rate NA 03/03/17 16:47 Inspired O2 40 03/03/17 16:47 Tidal Volume NA 03/03/17 16:47 PEEP NA 03/03/17 16:47 Pressure (ins/psv/peep) NA 03/03/17 16:47 Critical Value LZHANG 03/03/17 16:47 Sodium 130 mEq/L (136-145) L 03/04/17 08:00 Potassium 4.0 mEq/L (3.5-5.1) 03/04/17 08:00 Chloride 101 mEq/L (98-107) 03/04/17 08:00 Carbon Dioxide 18.7 mEq/L (21.0-31.0) L 03/04/17 08:00 Anion Gap 14.3 (7.0-16.0) 03/04/17 08:00 BUN 37 mg/dL (7-25) H 03/04/17 08:00 Creatinine 1.9 mg/dL (0.6-1.2) H 03/04/17 08:00 Est GFR ( Amer) 33.7 ml/min (>90) 03/04/17 08:00 Est GFR (Non-Af Amer) 27.9 ml/min 03/04/17 08:00 BUN/Creatinine Ratio 19.5 03/04/17 08:00 Glucose 143 mg/dL (70-105) H 03/04/17 08:00 POC Glucose 188 MG/DL (70 - 105) H 03/04/17 11:51 Hemoglobin A1c % 5.8 % (4.0-6.0) 02/22/17 10:38 Whole Bld Lactic Acid 2.40 mmol/L (0.60-1.99) H* 02/27/17 15:04 Calcium 7.6 mg/dL (8.6-10.3) L 03/04/17 08:00 Phosphorus 2.5 mg/dL (2.5-5.0) 03/01/17 09:15 Magnesium 2.1 mg/dL (1.9-2.7) 03/01/17 09:15 Total Bilirubin 0.6 mg/dL (0.3-1.0) 03/01/17 09:15 Direct Bilirubin 0.09 mg/dL (0.0-0.2) 02/18/17 23:35 AST 20 U/L (13-39) 03/01/17 09:15 ALT 6 U/L (7-52) L 03/01/17 09:15 Alkaline Phosphatase 56 U/L (34-104) 03/01/17 09:15 Ammonia 38 umol/L (16-53) 03/01/17 17:28 B-Natriuretic Peptide 220.0 pg/mL (5.0-100.0) H 02/22/17 10:38 Total Protein 4.8 gm/dL (6.0-8.3) L 03/01/17 09:15 Albumin 3.1 gm/dL (3.7-5.3) L 03/01/17 09:15 Globulin 1.7 gm/dL 03/01/17 09:15 Albumin/Globulin Ratio 1.8 (1.0-1.8) 03/01/17 09:15 Amylase 36 U/L (29-103) 02/18/17 23:35 Lipase 10 U/L (11-82) L 02/18/17 23:35 Vitamin B12 860 pg/mL (232-1245) 02/26/17 04:45 Free T4 1.04 ng/dL (0.82-1.77) 02/25/17 04:50 Free T3 0.7 pg/mL (2.0-4.4) L 02/25/17 04:50 TSH 0.84 uIU/ml (0.34-5.60) 02/25/17 04:50 Urine Source [place] 02/27/17 15:00 Urine Color YELLOW 02/27/17 15:00 Urine Clarity CLOUDY (CLEAR) H 02/27/17 15:00 Urine pH 5.5 (4.6 - 8.0) 02/27/17 15:00 Ur Specific [place] <= 1.005 (1.005-1.030) 02/27/17 15:00 Urine Protein TRACE mg/dL (NEGATIVE) 02/27/17 15:00 Urine Glucose (UA) NEGATIVE mg/dL (NEGATIVE) 02/27/17 15:00 Urine Ketones NEGATIVE mg/dL (NEGATIVE) 02/27/17 15:00 Urine Blood LARGE (NEGATIVE) H 02/27/17 15:00 Urine Nitrate NEGATIVE (NEGATIVE) 02/27/17 15:00 Urine Bilirubin NEGATIVE (NEGATIVE) 02/27/17 15:00 Urine Urobilinogen 0.2 E.U./dL (0.2 - 1.0) 02/27/17 15:00 Ur Leukocyte Esterase LARGE (NEGATIVE) H 02/27/17 15:00 Urine RBC 10-25 /hpf (0-5) H 02/27/17 15:00 Urine WBC >100 /hpf (0-5) H 02/27/17 15:00 Ur Epithelial Cells MODERATE /lpf (FEW) 02/27/17 15:00 Urine Bacteria MODERATE /hpf (NONE SEEN) H 02/27/17 15:00 Urine Yeast MODERATE /hpf (NONE SEEN) H 02/20/17 16:15 Blood Type A POSITIVE 02/27/17 15:04 Antibody Screen NEGATIVE 02/27/17 15:04 Crossmatch See Detail 02/27/17 15:04 - Physical Exam Vitals and I&O: Vital Signs Temp 96 F 03/04/17 12:00 Pulse 97 03/04/17 12:39 Resp 30 03/04/17 12:00 BP 83/48 03/04/17 12:00 Pulse Ox 97 03/04/17 12:39 Intake & Output 03/03/17 03/04/17 03/04/17 18:59 06:59 18:59 Intake Total 7945.230 4133.903 293.887 Output Total 1550 Balance -100.433 1305.903 293.887 Weight (lbs) 105.007 kg Intake: Intake, IV Amount 362.579 0613.903 293.887 D5-0.9NS w/KCL 20mEq 1, 293.75 1000 000 ml @ 75 mls/hr IV . [id number] [facility] Rx#:[id number] Linezolid 600mg/300mL 600 300 300 mg In 300 ml @ 300 mls/ hr IV Q12HR [facility] Rx#: [id number] Meropenem 1 gm In 100 100 Dextrose 5% 100 ml @ 100 mls/hr IV Q12H [facility] Rx#: [id number] Norepinephrine 8 mg In 190.598 2.903 193.887 Sodium Chloride 0.9% 250 ml @ Per Protocol IV TITR [facility] Rx#:[id number] Pantoprazole 80 mg In 43.5 100 0 Sodium Chloride 0.9% 100 ml @ 10 mls/hr IV Q10H [facility] Rx#:[id number] Tube Feeding 360 Other 30 Output: Urine 1550 Other: Stool Characteristics Liquid Liquid Soft Brown Brown Active Medications: Current Medications Acetaminophen (Tylenol) 650 mg PO Q4HR PRN PRN Reason: Pain (Mild) Stop: 04/20/17 12:01 Last Admin: 02/21/17 09:54 Dose: 650 mg Acetaminophen/Hydrocodone Bitart ([place] 5mg/325mg) 1 tab PO Q6H PRN PRN Reason: PAIN Stop: 04/20/17 13:24 Albumin Human (Albutein 25%) 12.5 gm IV Q8HR [facility] Stop: 03/05/17 20:59 Albuterol/Ipratropium (Duoneb Neb) 3 ml HHN Q4HRT PRN PRN Reason: Wheezing Stop: 04/27/17 19:59 Last Admin: 02/28/17 03:18 Dose: 3 ml Albuterol/Ipratropium (Duoneb Neb) 3 ml HHN [id number] [facility] Stop: 04/27/17 19:59 Last Admin: 03/04/17 12:39 Dose: 3 ml Aspirin (Ecotrin) 81 mg PO DAILY [facility] Stop: 04/21/17 08:59 Last Admin: 03/04/17 11:57 Dose: 81 mg Chlorhexidine Gluconate (Peridex) 15 ml MM 799,1999 [facility] Stop: 04/28/17 19:59 Last Admin: 03/04/17 08:42 Dose: 15 ml Diltiazem HCl (Cardizem) 5 mg IVP Q4H PRN PRN Reason: HR > 120 Stop: 04/27/17 19:59 Last Admin: 02/27/17 04:59 Dose: 5 mg Docusate Sodium (Colace) 100 mg PO BID PATRIA Stop: 04/20/17 16:59 Last Admin: 03/04/17 09:43 Dose: 100 mg Furosemide (Lasix) 40 mg PO DAILY [facility] Stop: 04/21/17 08:59 Last Admin: 03/04/17 09:44 Dose: Not Given Pantoprazole Sodium 80 mg/ (Sodium Chloride) 100 mls @ 10 mls/hr IV Q10H [facility] Stop: 04/20/17 08:59 Last Admin: 03/04/17 10:48 Dose: 10 mls/hr Linezolid (Zyvox) 600 mg in 300 mls @ 300 mls/hr IV Q12HR [facility] Stop: 04/22/17 20:59 Last Admin: 03/04/17 09:43 Dose: 300 mls/hr Levofloxacin (Levaquin Pb) 250 mg in 50 mls @ 50 mls/hr IV Q24HR [facility] Stop: 04/23/17 20:59 Last Admin: 03/03/17 23:33 Dose: 50 mls/hr Phenylephrine HCl 10 mg/ (Sodium Chloride) 250 mls @ 0 mls/hr IV TITR PATRIA; Per Protocol PRN Reason: Protocol Stop: 04/28/17 07:59 Norepinephrine Bitartrate 8 mg (/ Sodium Chloride) 258 mls @ 0 mls/hr IV TITR PATRIA; Per Protocol PRN Reason: Protocol Stop: 04/28/17 09:59 Last Admin: 03/04/17 11:57 Dose: 6 mcg/min, 11.61 mls/hr Meropenem 1 gm/ Dextrose 100 mls @ 100 mls/hr IV Q12H [facility] Stop: 04/28/17 12:29 Last Admin: 03/04/17 12:24 Dose: 100 mls/hr Potassium Chloride/Dextrose/Sod Cl (D5-0.9ns W/Kcl 20meq) 1,000 mls @ 75 mls/ hr IV .[id number] PATRIA Stop: 04/30/17 14:41 Last Admin: 03/04/17 04:42 Dose: 75 mls/hr Insulin Aspart (Novolog Insulin Sliding Scale) 0 units SUBQ Q6H PATRIA PRN Reason: Protocol Stop: 05/03/17 00:00 Last Admin: 03/04/17 12:17 Dose: 2 units Mirtazapine (Remeron) 15 mg PO HS PATRIA PRN Reason: Protocol Stop: 04/26/17 20:59 Last Admin: 03/03/17 23:30 Dose: 15 mg Miscellaneous (Probiotic Screen) 1 ea MC PRN PRN PRN Reason: PROTOCOL Stop: 04/21/17 16:25 Morphine Sulfate (Morphine) 1 mg IVP Q3H PRN PRN Reason: Pain (Moderate) Stop: 04/20/17 01:59 Last Admin: 03/04/17 08:32 Dose: 1 mg Nitroglycerin (Nitrostat) 0.4 mg SL Q5MIN PRN PRN Reason: Chest Pain Stop: 04/20/17 12:01 Nystatin (Nystop) 100,000 units TP BID PRN PRN Reason: SKIN EXCORIATIONS Stop: 04/21/17 15:35 Last Admin: 03/02/17 10:00 Dose: 100,000 units Ondansetron HCl (Zofran) 4 mg IV Q6H PRN PRN Reason: Nausea Stop: 04/20/17 03:38 General: Alert, No acute distress HEENT: Atraumatic, EOMI Neck: Supple, JVD, +2 carotid pulse wo bruit Cardiovascular: Regular rate, Normal S1, Normal S2 Lungs: Other (coarse rhonchi) Abdomen: Bowel sounds, Soft Extremities: Other (min edema) Neurological: Sensation intact Skin: no Rash Psych/Mental Status: Mood NL - Procedures Procedures: Procedures Procedure Code Date INSERT EMERGENCY AIRWAY 36843 02/19/17 INSERTION OF ENDOTRACHEAL AIRWAY INTO [place]HE[place], VIA OPENING [id number] 02/19/17 RESPIRATORY VENTILATION, GREATER THAN 96 CONSECUTIVE HOURS [id number] 02/19/17 VENT MGMT INPAT INIT DAY 02/19/17 VENT MGMT INPAT SUBQ DAY 02/19/17 Assessment/Plan - Problem List Patient Problems: All Active Problems Acute kidney failure (Acute) 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 Azotemia (Acute) R79.89 Bradycardia (Acute) R00.1 COPD (chronic obstructive pulmonary disease) (Acute) Cardiomegaly (Acute) I51.7 Chest pain (Acute) R07.9 Decubitus ulcer of buttock, 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 - Assessment Assessment: SOHAIL on CKD Acute resp failure on vent 2nd CHF, HAP, possible SOFIE, Exacerbation COPD Shock Sepsis DJD Type 2 DM GERD SOFIE Hyponatremia S/p Martha Thackere - Plan Plan: Lab - Result Diagrams 03/01/17 09:15 03/01/17 09:15 Current Medications Acetaminophen (Tylenol) 650 mg PO Q4HR PRN PRN Reason: Pain (Mild) Stop: 04/20/17 12:01 Last Admin: 02/21/17 09:54 Dose: 650 mg Acetaminophen/Hydrocodone Bitart ([place] 5mg/325mg) 1 tab PO Q6H PRN PRN Reason: PAIN Stop: 04/20/17 13:24 Albuterol/Ipratropium (Duoneb Neb) 3 ml HHN Q4HRT PRN PRN Reason: Wheezing Stop: 04/27/17 19:59 Last Admin: 02/28/17 03:18 Dose: 3 ml Albuterol/Ipratropium (Duoneb Neb) 3 ml HHN [id number] [facility] Stop: 04/27/17 19:59 Last Admin: 03/01/17 13:49 Dose: 3 ml Aspirin (Ecotrin) 81 mg PO DAILY [facility] Stop: 04/21/17 08:59 Last Admin: 03/01/17 09:30 Dose: Not Given Chlorhexidine Gluconate (Peridex) 15 ml MM 0800,2000 [facility] Stop: 04/28/17 19:59 Last Admin: 03/01/17 08:30 Dose: 15 ml Diltiazem HCl (Cardizem) 5 mg IVP Q4H PRN PRN Reason: HR > 120 Stop: 04/27/17 19:59 Last Admin: 02/27/17 04:59 Dose: 5 mg Docusate Sodium (Colace) 100 mg PO BID [facility] Stop: 04/20/17 16:59 Last Admin: 03/01/17 09:31 Dose: Not Given Fluconazole (Diflucan) 100 mg PO DAILY PATRIA Stop: 03/08/17 08:59 Last Admin: 03/01/17 09:31 Dose: Not Given Furosemide (Lasix) 40 mg PO DAILY PATRIA Stop: 04/21/17 08:59 Last Admin: 03/01/17 09:31 Dose: Not Given Pantoprazole Sodium 80 mg/ (Sodium Chloride) 100 mls @ 10 mls/hr IV Q10H [facility] Stop: 04/20/17 08:59 Last Admin: 03/01/17 09:31 Dose: 10 mls/hr Linezolid (Zyvox) 600 mg in 300 mls @ 300 mls/hr IV Q12HR [facility] Stop: 04/22/17 20:59 Last Infusion: 03/01/17 10:00 Dose: Infused Levofloxacin (Levaquin Pb) 250 mg in 50 mls @ 50 mls/hr IV Q24HR [facility] Stop: 04/23/17 20:59 Last Infusion: 02/28/17 21:17 Dose: Infused Phenylephrine HCl 10 mg/ (Sodium Chloride) 250 mls @ 0 mls/hr IV TITR PATRIA; Per Protocol PRN Reason: Protocol Stop: 04/28/17 07:59 Norepinephrine Bitartrate 8 mg (/ Sodium Chloride) 258 mls @ 0 mls/hr IV TITR PATRIA; Per Protocol PRN Reason: Protocol Stop: 04/28/17 09:59 Last Titration: 03/01/17 06:31 Dose: 6 mcg/min, 11.61 mls/hr Meropenem 1 gm/ Dextrose 100 mls @ 100 mls/hr IV Q12H [facility] Stop: 04/28/17 12:29 Last Infusion: 03/01/17 13:00 Dose: Infused Potassium Chloride/Dextrose/Sod Cl (D5-0.9ns W/Kcl 20meq) 1,000 mls @ 75 mls/ hr IV .[id number] [facility] Stop: 04/30/17 14:41 Insulin Aspart (Novolog Insulin Sliding Scale) 0 units SUBQ ACHS PATRIA PRN Reason: Protocol Stop: 04/20/17 16:29 Last Admin: 03/01/17 12:01 Dose: 4 units Mirtazapine (Remeron) 15 mg PO HS PATRIA PRN Reason: Protocol Stop: 04/26/17 20:59 Last Admin: 02/28/17 21:23 Dose: 15 mg Miscellaneous (Probiotic Screen) 1 ea MC PRN PRN PRN Reason: PROTOCOL Stop: 04/21/17 16:25 Morphine Sulfate (Morphine) 1 mg IVP Q3H PRN PRN Reason: Pain (Moderate) Stop: 04/20/17 01:59 Last Admin: 03/01/17 09:28 Dose: 1 mg Nitroglycerin (Nitrostat) 0.4 mg SL Q5MIN PRN PRN Reason: Chest Pain Stop: 04/20/17 12:01 Nystatin (Nystop) 100,000 units TP BID PRN PRN Reason: SKIN EXCORIATIONS Stop: 04/21/17 15:35 Last Admin: 02/21/17 11:46 Dose: 100,000 units Ondansetron HCl (Zofran) 4 mg IV Q6H PRN PRN Reason: Nausea Stop: 04/20/17 03:38 Spironolactone (Aldactone) 50 mg PO BID PATRIA Stop: 04/27/17 08:59 Last Admin: 03/01/17 09:29 Dose: Not Given Na up to 130 Cr. down to 1.9 UOP improved to martha 2L CXR still w/ CHF, continue Lasix po DC spironolactone still on Levo 18 mcg f/u electorlytes, cbc, CXR start IVF D5NS @ 70 ml/hr w/ KCL add albumin initiate [id number] Nutritional Asmnt/Malnutr-PDOC - Dietary Evaluation Malnutrition Findings (Please click <Entered> for more info): Nutritional Asmnt/Malnutrition Start: 02/21/17 18: 20 Text: Status: Complete Freq: Document 02/21/17 18:21 LCHEN (Rec: 02/21/17 18:32 LCHEN [id number]) Nutritional Asmnt/Malnutrition Patient General Information Nutritional Screening High Risk Consult Diagnosis gastric outlet obstruction Pertinent Medical Hx/Surgical Hx HTN, OA, DM, GERD Subjective Information Pt seen sleeping at the time of visit, attempted x 2. Spoke with RN, pt consumed 50% of breakfast and only the soup of lunch today, not much appetite, no complain of N/V. Pt will be NPO from midnight for GI exam tommorrow. Current Diet Order/ Nutrition Support no added salt 4gm, CCHO, no eggs, banana and cereal in morning Pertinent Medications colace, lasix, novolog, levaquin, piperacillin Pertinent Labs 02/20 Na 137, K 4.5, Cl 104, BUN 55, Cr 1.6, Glucose 137, POC 126-199 since admit, Ca 8. 3 Nutritional Hx/Data Height 1.57 m Height (Calculated Centimeters) 157.5 Current Weight (lbs) 97.023 kg Weight (Calculated Kilograms) 97.0 Weight (Calculated Grams) 70344.4 [place] Body Weight 110 % [place] Body Weight 194 Body Mass Index (BMI) 39.1 Weight Status Obese GI Symptoms GI Symptoms None Last BM none Difficult in: None Skin Integrity/Comment: multiple maceration, abrasion to right/left medial thigh Current %PO Poor (25-49%) Estimated Nutritional Goals BEE in Kcals: Adj wt of IBW Calories/Kcals/Kg 27-32 Kcals Calculated Protein: Adj wt of IBW Protein g/k-1.2 Protein Calculated 62-74 Fluid: ml Nutritional Problem 1. Problem Problem inadequate PO intake Etiology poor appetite Signs/Symptoms: PO intake 25-50% Malnutrition Alert Protein-Calorie Malnutrition N/A Is there a minimum of two criteria No selected? Query Text:Check all the applicable criteria. A minimum of two criteria are recommended for diagnosis of either severe or non-severe malnutrition. Intervention/Recommendation Comments 1. Continue with current diet as ordered. 2. Monitor PO intake, GI symptons, wt, labs and skin integrity 3. F/U as high risk in 2-3 days, 02/23-02/24 Expected Outcomes/Goals Expected Outcomes/Goals 1. PO intake to meet at least 75% of nutritional needs. 2. Wt stability, skin to remain intact, labs to improve
[2017-03-04] MEDS: Levofloxacin 250 mg/50 mL Premix Bag IV SCH (20:39)
[2017-03-04] MEDS: NYSTATIN 100000 UNITS/GM POWD TP PRN (20:45)
[2017-03-05] MEDS: Morphine Sulfate 2 mg/mL 1mL Syr IVP PRN ×2 (02:17→14:25)
[2017-03-05] MEDS: Pantoprazole 80 MG in Sodium Chloride 0.9% 100 ML IV SCH ×3 (04:57→23:05)
[2017-03-05] MEDS: Albuterol/Ipratropium Neb 3 ML AERS HHN SCH ×3 (06:52→19:39)
[2017-03-05] MEDS: INSULIN ASPART SLIDING SCALE 100 UNITS/ML UNIT SUBQ SCH ×3 (07:05→18:04)
[2017-03-05] MEDS: Multivitamin w/ Minerals Tab PO SCH (09:02)
[2017-03-05] MEDS: Linezolid 600mg/300mL 600 MG/300 ML BAG IV SCH (09:02)
[2017-03-05] MEDS: Chlorhexidine Gluconate 0.12% 15mL Mouthwash MM SCH ×2 (09:04→20:30)
[2017-03-05 09:33] LABS: BASOPHILE ABSOLUTE 0.2 Th/cumm (0-0.2); EOSINOPHILE ABSOLUTE 0.7 Th/cmm (0.1-0.4); LYMPHOCYTE ABSOLUTE 1.6 Th/cmm (1.5-3.0); MEAN CELL VOLUME 87.2 fl (81-100); MEAN CORPUSCULAR HEMOGLOBIN 29.1 pg (27.0-31.0); MEAN CORPUSCULAR HGB CONC 33.4 pg (28.0-36.0); MEAN PLATELET VOLUME 7.8 fl; NEUTROPHILE ABSOLUTE 28.8 Th/cmm (1.8-8.0); RED BLOOD COUNT 3.77 Mil/cmm (3.80-5.20); RED CELL DISTRIBUTION WIDTH 13.1 % (11.5-20.0)
[2017-03-05 09:36] LABS: WHITE BLOOD COUNT 32.3 Th/cmm (4.8-10.8)
[2017-03-05 09:37] LABS: HEMATOCRIT 32.9 % (41.0-60); PLATELET COUNT 60 Th/cmm (150-400)
[2017-03-05 09:55] LABS: ANION GAP 13.2 (7.0-16.0); CALCIUM SERUM 7.7 mg/dL (8.6-10.3); CARBON DIOXIDE 18.1 mEq/L (21.0-31.0); CREATININE - SERUM 1.9 mg/dL (0.6-1.2); GFR AFRICAN-AMERICAN 33.7 ml/min (>90); GFR NON AFRICAN-AMERICAN 27.9 ml/min; POTASSIUM SERUM 4.3 mEq/L (3.5-5.1)
--- NOTE | 2017-03-05 09:55 | Diagnostic Imaging Report ---
CHEST X-RAY: AP view INDICATION: Shortness of breath COMPARISON: Chest x-ray 03/03/2017 FINDINGS: Support devices are stable. Persistent congestive changes are noted. No focal consolidation or significant effusion. Cardiomegaly is noted. IMPRESSION: Persisting congestive changes and cardiomegaly.
[2017-03-05 10:02] LABS: BAND NEUTROPHILE 3 % (0-10); LYMPHOCYTE 2 % (20-50); MONOCYTE 3 % (2-10); NEUTROPHILS 92 % (40-80); PLATELET ESTIMATE DECREASED PLATELETS (NORMAL); TOTAL CELLS COUNTED 100
[2017-03-05 10:50] LABS: pH 7.32 (7.35-7.45)
[2017-03-05 10:51] LABS: ALLEN TEST PASS
--- NOTE | 2017-03-05 11:49 | General Progress Note ---
Subjective - Review of Systems Service Date: 03/05/17 Subjective: much alert, on vent Objective - Results Result Diagrams: 03/05/17 09:10 03/05/17 09:10 Recent Labs: Laboratory Last Values WBC 32.3 Th/cmm (4.8-10.8) H* 03/05/17 09:10 RBC 3.77 Mil/cmm (3.80-5.20) L 03/05/17 09:10 Hgb 11.0 gm/dL (12-16) L 03/05/17 09:10 Hct 32.9 % (41.0-60) L D 03/05/17 09:10 MCV 87.2 fl (81-100) 03/05/17 09:10 MCH 29.1 pg (27.0-31.0) 03/05/17 09:10 MCHC Differential 33.4 pg (28.0-36.0) 03/05/17 09:10 RDW 13.1 % (11.5-20.0) 03/05/17 09:10 Plt Count 60 Th/cmm (150-400) L D 03/05/17 09:10 MPV 7.8 fl 03/05/17 09:10 Neutrophils % [employer] 02/25/17 04:50 Band Neutrophils % 3 % (0-10) 03/05/17 09:10 Lymphocytes % [employer] 02/25/17 04:50 Monocytes % [employer] 02/25/17 04:50 Eosinophils % [employer] HELPER 02/25/17 04:50 Basophils % [employer]PER 02/25/17 04:50 Neutrophils (Manual) 92 % (40-80) H 03/05/17 09:10 Lymphocytes 2 % (20-50) L 03/05/17 09:10 Monocytes 3 % (2-10) 03/05/17 09:10 Eosinophils 8 % (0-5) H 03/04/17 08:00 Metamyelocytes 1 % (0-0) H 02/18/17 23:35 Hypochromia 1+ 02/18/17 23:35 Platelet Estimate DECREASED PLATELETS (NORMAL) 03/05/17 09:10 Platelet Morphology (NORMAL) 03/04/17 08:00 PT 13.9 SECONDS (9.5-11.5) H 03/01/17 09:15 INR 1.32 (0.5-1.4) 03/01/17 09:15 PTT (Actin FS) 53.1 SECONDS (26.0-38.0) H 03/01/17 09:15 Specimen Source Arterial 03/05/17 10:40 Sample Site Right Radial 03/05/17 10:40 pH 7.32 (7.35-7.45) L 03/05/17 10:40 pCO2 37.0 mmHg (35.0-45.0) 03/05/17 10:40 pO2 67.0 mmHg (80.0-100.0) L 03/05/17 10:40 HCO3 19.8 mEq/L (20.0-26.0) L 03/05/17 10:40 Base Excess -6.4 mEq/L (-3.0-3.0) L 03/05/17 10:40 O2 Saturation 91.0 % (92.0-100.0) L 03/05/17 10:40 Jorje Test PASS 03/05/17 10:40 Vent Rate 10 03/05/17 10:40 Inspired O2 30 03/05/17 10:40 Tidal Volume 550 03/05/17 10:40 PEEP 5 03/05/17 10:40 Pressure (ins/psv/peep) 10 03/05/17 10:40 Critical Value PW 03/05/17 10:40 Sodium 130 mEq/L (136-145) L 03/05/17 09:10 Potassium 4.3 mEq/L (3.5-5.1) 03/05/17 09:10 Chloride 103 mEq/L (98-107) 03/05/17 09:10 Carbon Dioxide 18.1 mEq/L (21.0-31.0) L 03/05/17 09:10 Anion Gap 13.2 (7.0-16.0) 03/05/17 09:10 BUN 38 mg/dL (7-25) H 03/05/17 09:10 Creatinine 1.9 mg/dL (0.6-1.2) H 03/05/17 09:10 Est GFR ( Amer) 33.7 ml/min (>90) 03/05/17 09:10 Est GFR (Non-Af Amer) 27.9 ml/min 03/05/17 09:10 BUN/Creatinine Ratio 20.0 03/05/17 09:10 Glucose 191 mg/dL (70-105) H 03/05/17 09:10 POC Glucose 182 MG/DL (70 - 105) H 03/04/17 18:02 Hemoglobin A1c % 5.8 % (4.0-6.0) 02/22/17 10:38 Whole Bld Lactic Acid 2.40 mmol/L (0.60-1.99) H* 02/27/17 15:04 Calcium 7.7 mg/dL (8.6-10.3) L 03/05/17 09:10 Phosphorus 2.5 mg/dL (2.5-5.0) 03/01/17 09:15 Magnesium 2.1 mg/dL (1.9-2.7) 03/01/17 09:15 Total Bilirubin 0.6 mg/dL (0.3-1.0) 03/01/17 09:15 Direct Bilirubin 0.09 mg/dL (0.0-0.2) 02/18/17 23:35 AST 20 U/L (13-39) 03/01/17 09:15 ALT 6 U/L (7-52) L 03/01/17 09:15 Alkaline Phosphatase 56 U/L (34-104) 03/01/17 09:15 Ammonia 38 umol/L (16-53) 03/01/17 17:28 B-Natriuretic Peptide 158.0 pg/mL (5.0-100.0) H 03/04/17 15:39 Total Protein 4.8 gm/dL (6.0-8.3) L 03/01/17 09:15 Albumin 3.1 gm/dL (3.7-5.3) L 03/01/17 09:15 Globulin 1.7 gm/dL 03/01/17 09:15 Albumin/Globulin Ratio 1.8 (1.0-1.8) 03/01/17 09:15 Amylase 36 U/L (29-103) 02/18/17 23:35 Lipase 10 U/L (11-82) L 02/18/17 23:35 Vitamin B12 860 pg/mL (232-1245) 02/26/17 04:45 Free T4 1.04 ng/dL (0.82-1.77) 02/25/17 04:50 Free T3 0.7 pg/mL (2.0-4.4) L 02/25/17 04:50 TSH 0.84 uIU/ml (0.34-5.60) 02/25/17 04:50 Urine Source [place] 02/27/17 15:00 Urine Color YELLOW 02/27/17 15:00 Urine Clarity CLOUDY (CLEAR) H 02/27/17 15:00 Urine pH 5.5 (4.6 - 8.0) 02/27/17 15:00 Ur Specific [place] <= 1.005 (1.005-1.030) 02/27/17 15:00 Urine Protein TRACE mg/dL (NEGATIVE) 02/27/17 15:00 Urine Glucose (UA) NEGATIVE mg/dL (NEGATIVE) 02/27/17 15:00 Urine Ketones NEGATIVE mg/dL (NEGATIVE) 02/27/17 15:00 Urine Blood LARGE (NEGATIVE) H 02/27/17 15:00 Urine Nitrate NEGATIVE (NEGATIVE) 02/27/17 15:00 Urine Bilirubin NEGATIVE (NEGATIVE) 02/27/17 15:00 Urine Urobilinogen 0.2 E.U./dL (0.2 - 1.0) 02/27/17 15:00 Ur Leukocyte Esterase LARGE (NEGATIVE) H 02/27/17 15:00 Urine RBC 10-25 /hpf (0-5) H 02/27/17 15:00 Urine WBC >100 /hpf (0-5) H 02/27/17 15:00 Ur Epithelial Cells MODERATE /lpf (FEW) 02/27/17 15:00 Urine Bacteria MODERATE /hpf (NONE SEEN) H 02/27/17 15:00 Urine Yeast MODERATE /hpf (NONE SEEN) H 02/20/17 16:15 Blood Type A POSITIVE 02/27/17 15:04 Antibody Screen NEGATIVE 02/27/17 15:04 Crossmatch See Detail 02/27/17 15:04 - Physical Exam Vitals and I&O: Vital Signs Temp 97.2 F 03/05/17 09:00 Pulse 103 03/05/17 11:35 Resp 25 03/05/17 09:00 BP 120/51 03/05/17 10:45 Pulse Ox 99 03/05/17 11:35 Intake & Output 03/04/17 03/05/17 03/05/17 18:59 06:59 18:59 Intake Total 2073.887 637.848 971.139 Output Total 501 300 Balance 1572.887 637.848 671.139 Weight (lbs) 118.478 kg 119.068 kg Intake: Intake, IV Amount 1693.887 637.848 391.139 D5-0.9NS w/KCL 20mEq 1, 1000 000 ml @ 75 mls/hr IV . [id number] [facility] Rx#:[id number] Linezolid 600mg/300mL 600 300 300 300 mg In 300 ml @ 300 mls/ hr IV Q12HR [facility] Rx#: [id number] Meropenem 1 gm In 200 Dextrose 5% 100 ml @ 100 mls/hr IV Q12H [facility] Rx#: [id number] Norepinephrine 8 mg In 193.887 156.348 91.139 Sodium Chloride 0.9% 250 ml @ Per Protocol IV TITR [facility] Rx#:[id number] Pantoprazole 80 mg In 0 181.500 Sodium Chloride 0.9% 100 ml @ 10 mls/hr IV Q10H [facility] Rx#:[id number] Oral 0 Tube Feeding 480 TPN/PPN 380 Other 100 Output: Urine 500 300 Stool 1 0 Other: Stool Characteristics Soft Soft Soft Active Medications: Current Medications Acetaminophen (Tylenol) 650 mg PO Q4HR PRN PRN Reason: Pain (Mild) Stop: 04/20/17 12:01 Last Admin: 02/21/17 09:54 Dose: 650 mg Albumin Human (Albutein 25%) 12.5 gm IV Q8HR [facility] Stop: 03/05/17 20:59 Albuterol/Ipratropium (Duoneb Neb) 3 ml HHN Q4HRT PRN PRN Reason: Wheezing Stop: 04/27/17 19:59 Last Admin: 02/28/17 03:18 Dose: 3 ml Albuterol/Ipratropium (Duoneb Neb) 3 ml HHN [id number] [facility] Stop: 04/27/17 19:59 Last Admin: 03/05/17 06:52 Dose: 3 ml Aspirin (Ecotrin) 81 mg PO DAILY [facility] Stop: 04/21/17 08:59 Last Admin: 03/05/17 09:02 Dose: 81 mg Chlorhexidine Gluconate (Peridex) 15 ml MM 0800,1999 [facility] Stop: 04/28/17 19:59 Last Admin: 03/05/17 09:04 Dose: 15 ml Diltiazem HCl (Cardizem) 5 mg IVP Q4H PRN PRN Reason: HR > 120 Stop: 04/27/17 19:59 Last Admin: 02/27/17 04:59 Dose: 5 mg Docusate Sodium (Colace) 100 mg PO BID [facility] Stop: 04/20/17 16:59 Last Admin: 03/05/17 09:02 Dose: 100 mg Furosemide (Lasix) 40 mg PO DAILY [facility] Stop: 04/21/17 08:59 Last Admin: 03/05/17 09:02 Dose: 40 mg Pantoprazole Sodium 80 mg/ (Sodium Chloride) 100 mls @ 10 mls/hr IV Q10H [facility] Stop: 04/20/17 08:59 Last Admin: 03/05/17 04:57 Dose: 10 mls/hr Linezolid (Zyvox) 600 mg in 300 mls @ 300 mls/hr IV Q12HR [facility] Stop: 04/22/17 20:59 Last Infusion: 03/05/17 10:05 Dose: Infused Levofloxacin (Levaquin Pb) 250 mg in 50 mls @ 50 mls/hr IV Q24HR [facility] Stop: 04/23/17 20:59 Last Admin: 03/04/17 20:39 Dose: 50 mls/hr Phenylephrine HCl 10 mg/ (Sodium Chloride) 250 mls @ 0 mls/hr IV TITR [facility]; Per Protocol PRN Reason: Protocol Stop: 04/28/17 07:59 Norepinephrine Bitartrate 8 mg (/ Sodium Chloride) 258 mls @ 0 mls/hr IV TITR [facility]; Per Protocol PRN Reason: Protocol Stop: 04/28/17 09:59 Last Admin: 03/05/17 09:16 Dose: 6 mcg/min, 11.61 mls/hr Meropenem 1 gm/ Dextrose 100 mls @ 100 mls/hr IV Q12H [facility] Stop: 04/28/17 12:29 Last Admin: 03/04/17 23:50 Dose: 100 mls/hr Potassium Chloride/Dextrose/Sod Cl (D5-0.9ns W/Kcl 20meq) 1,000 mls @ 75 mls/ hr IV .[id number] [facility] Stop: 04/30/17 14:41 Last Admin: 03/04/17 20:45 Dose: 75 mls/hr Insulin Aspart (Novolog Insulin Sliding Scale) 0 units SUBQ Q6H [facility] PRN Reason: Protocol Stop: 05/03/17 00:00 Last Admin: 03/05/17 07:05 Dose: Not Given Mirtazapine (Remeron) 15 mg PO HS [facility] PRN Reason: Protocol Stop: 04/26/17 20:59 Last Admin: 03/04/17 20:53 Dose: 15 mg Miscellaneous (Probiotic Screen) 1 ea MC PRN PRN PRN Reason: PROTOCOL Stop: 04/21/17 16:25 Nitroglycerin (Nitrostat) 0.4 mg SL Q5MIN PRN PRN Reason: Chest Pain Stop: 04/20/17 12:01 Nystatin (Nystop) 100,000 units TP BID PRN PRN Reason: SKIN EXCORIATIONS Stop: 04/21/17 15:35 Last Admin: 03/04/17 20:45 Dose: 100,000 units Ondansetron HCl (Zofran) 4 mg IV Q6H PRN PRN Reason: Nausea Stop: 04/20/17 03:38 General: Alert, No acute distress HEENT: Atraumatic, EOMI Neck: Supple, JVD, +2 carotid pulse wo bruit Cardiovascular: Regular rate, Normal S1, Normal S2 Lungs: Other (coarse rhonchi) Abdomen: Bowel sounds, Soft Extremities: Other (min edema) Neurological: Sensation intact Skin: no Rash Psych/Mental Status: Mood NL - Procedures Procedures: Procedures Procedure Code Date INSERT EMERGENCY AIRWAY 65640 02/19/17 INSERTION OF ENDOTRACHEAL AIRWAY INTO [place], VIA OPENING [id number] 02/19/17 RESPIRATORY VENTILATION, GREATER THAN 96 CONSECUTIVE HOURS [id number] 02/19/17 VENT MGMT INPAT INIT DAY 02/19/17 VENT MGMT INPAT SUBQ DAY 02/19/17 Assessment/Plan - Problem List Patient Problems: All Active Problems Acute kidney failure (Acute) 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 Azotemia (Acute) R79.89 Bradycardia (Acute) R00.1 COPD (chronic obstructive pulmonary disease) (Acute) Cardiomegaly (Acute) I51.7 Chest pain (Acute) R07.9 Decubitus ulcer of buttock, 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 - Assessment Assessment: SOHAIL on CKD Acute resp failure on vent 2nd CHF, HAP, possible SOFIE, Exacerbation COPD Shock Sepsis DJD Type 2 DM GERD SOFIE Hyponatremia S/p Martha Thackere - Plan Plan: Lab - Result Diagrams 03/01/17 09:15 03/01/17 09:15 Current Medications Acetaminophen (Tylenol) 650 mg PO Q4HR PRN PRN Reason: Pain (Mild) Stop: 04/20/17 12:01 Last Admin: 02/21/17 09:54 Dose: 650 mg Acetaminophen/Hydrocodone Bitart ([place] 5mg/325mg) 1 tab PO Q6H PRN PRN Reason: PAIN Stop: 04/20/17 13:24 Albuterol/Ipratropium (Duoneb Neb) 3 ml HHN Q4HRT PRN PRN Reason: Wheezing Stop: 04/27/17 19:59 Last Admin: 02/28/17 03:18 Dose: 3 ml Albuterol/Ipratropium (Duoneb Neb) 3 ml HHN [id number] [facility] Stop: 04/27/17 19:59 Last Admin: 03/01/17 13:49 Dose: 3 ml Aspirin (Ecotrin) 81 mg PO DAILY [facility] Stop: 04/21/17 08:59 Last Admin: 03/01/17 09:30 Dose: Not Given Chlorhexidine Gluconate (Peridex) 15 ml MM 0800,2000 [facility] Stop: 04/28/17 19:59 Last Admin: 03/01/17 08:30 Dose: 15 ml Diltiazem HCl (Cardizem) 5 mg IVP Q4H PRN PRN Reason: HR > 120 Stop: 04/27/17 19:59 Last Admin: 02/27/17 04:59 Dose: 5 mg Docusate Sodium (Colace) 100 mg PO BID [facility] Stop: 04/20/17 16:59 Last Admin: 03/01/17 09:31 Dose: Not Given Fluconazole (Diflucan) 100 mg PO DAILY [facility] Stop: 03/08/17 08:59 Last Admin: 03/01/17 09:31 Dose: Not Given Furosemide (Lasix) 40 mg PO DAILY [facility] Stop: 04/21/17 08:59 Last Admin: 03/01/17 09:31 Dose: Not Given Pantoprazole Sodium 80 mg/ (Sodium Chloride) 100 mls @ 10 mls/hr IV Q10H [facility] Stop: 04/20/17 08:59 Last Admin: 03/01/17 09:31 Dose: 10 mls/hr Linezolid (Zyvox) 600 mg in 300 mls @ 300 mls/hr IV Q12HR [facility] Stop: 04/22/17 20:59 Last Infusion: 03/01/17 10:00 Dose: Infused Levofloxacin (Levaquin Pb) 250 mg in 50 mls @ 50 mls/hr IV Q24HR [facility] Stop: 04/23/17 20:59 Last Infusion: 02/28/17 21:17 Dose: Infused Phenylephrine HCl 10 mg/ (Sodium Chloride) 250 mls @ 0 mls/hr IV TITR [facility]; Per Protocol PRN Reason: Protocol Stop: 04/28/17 07:59 Norepinephrine Bitartrate 8 mg (/ Sodium Chloride) 258 mls @ 0 mls/hr IV TITR [facility]; Per Protocol PRN Reason: Protocol Stop: 04/28/17 09:59 Last Titration: 03/01/17 06:31 Dose: 6 mcg/min, 11.61 mls/hr Meropenem 1 gm/ Dextrose 100 mls @ 100 mls/hr IV Q12H [facility] Stop: 04/28/17 12:29 Last Infusion: 03/01/17 13:00 Dose: Infused Potassium Chloride/Dextrose/Sod Cl (D5-0.9ns W/Kcl 20meq) 1,000 mls @ 75 mls/ hr IV .[id number] [facility] Stop: 04/30/17 14:41 Insulin Aspart (Novolog Insulin Sliding Scale) 0 units SUBQ ACHS [facility] PRN Reason: Protocol Stop: 04/20/17 16:29 Last Admin: 03/01/17 12:01 Dose: 4 units Mirtazapine (Remeron) 15 mg PO HS [facility] PRN Reason: Protocol Stop: 04/26/17 20:59 Last Admin: 02/28/17 21:23 Dose: 15 mg Miscellaneous (Probiotic Screen) 1 ea MC PRN PRN PRN Reason: PROTOCOL Stop: 04/21/17 16:25 Morphine Sulfate (Morphine) 1 mg IVP Q3H PRN PRN Reason: Pain (Moderate) Stop: 04/20/17 01:59 Last Admin: 03/01/17 09:28 Dose: 1 mg Nitroglycerin (Nitrostat) 0.4 mg SL Q5MIN PRN PRN Reason: Chest Pain Stop: 04/20/17 12:01 Nystatin (Nystop) 100,000 units TP BID PRN PRN Reason: SKIN EXCORIATIONS Stop: 04/21/17 15:35 Last Admin: 02/21/17 11:46 Dose: 100,000 units Ondansetron HCl (Zofran) 4 mg IV Q6H PRN PRN Reason: Nausea Stop: 04/20/17 03:38 Spironolactone (Aldactone) 50 mg PO BID [facility] Stop: 04/27/17 08:59 Last Admin: 03/01/17 09:29 Dose: Not Given Na up to 130 Cr. down to 1.9 UOP improved to martha 2L CXR still w/ CHF, continue Lasix po DC spironolactone still on Levo 20 mcg f/u electorlytes, cbc, CXR start IVF D5NS @ 70 ml/hr w/ KCL add albumin initiate NaHC03 WBC up to 32.3 Nutritional Asmnt/Malnutr-PDOC - Dietary Evaluation Malnutrition Findings (Please click <Entered> for more info): Nutritional Asmnt/Malnutrition Start: 02/21/17 18: 20 Text: Status: Complete Freq: Document 02/21/17 18:21 LCHENG (Rec: 02/21/17 18:32 LCHENG [id number]) Nutritional Asmnt/Malnutrition Patient General Information Nutritional Screening High Risk Consult Diagnosis gastric outlet obstruction Pertinent Medical Hx/Surgical Hx HTN, OA, DM, GERD Subjective Information Pt seen sleeping at the time of visit, attempted x 2. Spoke with RN, pt consumed 50% of breakfast and only the soup of lunch today, not much appetite, no complain of N/V. Pt will be NPO from midnight for GI exam tommorrow. Current Diet Order/ Nutrition Support no added salt 4gm, CCHO, no eggs, banana and cereal in morning Pertinent Medications colace, lasix, novolog, levaquin, piperacillin Pertinent Labs 02/20 Na 137, K 4.5, Cl 104, BUN 55, Cr 1.6, Glucose 137, POC 126-199 since admit, Ca 8. 3 Nutritional Hx/Data Height 1.57 m Height (Calculated Centimeters) 157.5 Current Weight (lbs) 97.023 kg Weight (Calculated Kilograms) 97.0 Weight (Calculated Grams) 73318.4 [place] Body Weight 110 % [place] Body Weight 194 Body Mass Index (BMI) 39.1 Weight Status Obese GI Symptoms GI Symptoms None Last BM none Difficult in: None Skin Integrity/Comment: multiple maceration, abrasion to right/left medial thigh Current %PO Poor (25-49%) Estimated Nutritional Goals BEE in Kcals: Adj wt of IBW Calories/Kcals/Kg 27-32 Kcals Calculated Protein: Adj wt of IBW Protein g/k-1.2 Protein Calculated 62-74 Fluid: ml Nutritional Problem 1. Problem Problem inadequate PO intake Etiology poor appetite Signs/Symptoms: PO intake 25-50% Malnutrition Alert Protein-Calorie Malnutrition N/A Is there a minimum of two criteria No selected? Query Text:Check all the applicable criteria. A minimum of two criteria are recommended for diagnosis of either severe or non-severe malnutrition. Intervention/Recommendation Comments 1. Continue with current diet as ordered. 2. Monitor PO intake, GI symptons, wt, labs and skin integrity 3. F/U as high risk in 2-3 days, 02/23-02/24 Expected Outcomes/Goals Expected Outcomes/Goals 1. PO intake to meet at least 75% of nutritional needs. 2. Wt stability, skin to remain intact, labs to improve
[2017-03-05] MEDS: D5-0.9NS w/KCL 20mEq 1,000 ML IV SCH (16:08)
[2017-03-05] MEDS ORDERED: ALBUMIN 25% IV ONE (16:30)
--- NOTE | 2017-03-05 17:08 | Infectious Disease Prog Note ---
Infectious Disease Subjective - Review of Systems Service Date: 03/05/17 Subjective: Remains on vent intubated orally. Infectious Disease Objective - Results Result Diagrams: 03/05/17 09:10 03/05/17 09:10 Recent Labs: Laboratory Last Values WBC 32.3 Th/cmm (4.8-10.8) H* 03/05/17 09:10 RBC 3.77 Mil/cmm (3.80-5.20) L 03/05/17 09:10 Hgb 11.0 gm/dL (12-16) L 03/05/17 09:10 Hct 32.9 % (41.0-60) L D 03/05/17 09:10 MCV 87.2 fl (81-100) 03/05/17 09:10 MCH 29.1 pg (27.0-31.0) 03/05/17 09:10 MCHC Differential 33.4 pg (28.0-36.0) 03/05/17 09:10 RDW 13.1 % (11.5-20.0) 03/05/17 09:10 Plt Count 60 Th/cmm (150-400) L D 03/05/17 09:10 MPV 7.8 fl 03/05/17 09:10 Neutrophils % [employer] 02/25/17 04:50 Band Neutrophils % 3 % (0-10) 03/05/17 09:10 Lymphocytes % [employer]MENT SPECIALIST 02/25/17 04:50 Monocytes % [employer]UITMENT SPECIALIST 02/25/17 04:50 Eosinophils % [employer]MENT SPECIALIST 02/25/17 04:50 Basophils % [employer]UITMENT SPECIALIST 02/25/17 04:50 Neutrophils (Manual) 92 % (40-80) H 03/05/17 09:10 Lymphocytes 2 % (20-50) L 03/05/17 09:10 Monocytes 3 % (2-10) 03/05/17 09:10 Eosinophils 8 % (0-5) H 03/04/17 08:00 Metamyelocytes 1 % (0-0) H 02/18/17 23:35 Hypochromia 1+ 02/18/17 23:35 Platelet Estimate DECREASED PLATELETS (NORMAL) 03/05/17 09:10 Platelet Morphology (NORMAL) 03/04/17 08:00 PT 13.9 SECONDS (9.5-11.5) H 03/01/17 09:15 INR 1.32 (0.5-1.4) 03/01/17 09:15 PTT (Actin FS) 53.1 SECONDS (26.0-38.0) H 03/01/17 09:15 Specimen Source Arterial 03/05/17 10:40 Sample Site Right Radial 03/05/17 10:40 pH 7.32 (7.35-7.45) L 03/05/17 10:40 pCO2 37.0 mmHg (35.0-45.0) 03/05/17 10:40 pO2 67.0 mmHg (80.0-100.0) L 03/05/17 10:40 HCO3 19.8 mEq/L (20.0-26.0) L 03/05/17 10:40 Base Excess -6.4 mEq/L (-3.0-3.0) L 03/05/17 10:40 O2 Saturation 91.0 % (92.0-100.0) L 03/05/17 10:40 Jorje Test PASS 03/05/17 10:40 Vent Rate 10 03/05/17 10:40 Inspired O2 30 03/05/17 10:40 Tidal Volume 550 03/05/17 10:40 PEEP 5 03/05/17 10:40 Pressure (ins/psv/peep) 10 03/05/17 10:40 Critical Value PW 03/05/17 10:40 Sodium 130 mEq/L (136-145) L 03/05/17 09:10 Potassium 4.3 mEq/L (3.5-5.1) 03/05/17 09:10 Chloride 103 mEq/L (98-107) 03/05/17 09:10 Carbon Dioxide 18.1 mEq/L (21.0-31.0) L 03/05/17 09:10 Anion Gap 13.2 (7.0-16.0) 03/05/17 09:10 BUN 38 mg/dL (7-25) H 03/05/17 09:10 Creatinine 1.9 mg/dL (0.6-1.2) H 03/05/17 09:10 Est GFR ( Amer) 33.7 ml/min (>90) 03/05/17 09:10 Est GFR (Non-Af Amer) 27.9 ml/min 03/05/17 09:10 BUN/Creatinine Ratio 20.0 03/05/17 09:10 Glucose 191 mg/dL (70-105) H 03/05/17 09:10 POC Glucose 201 MG/DL (70 - 105) H 03/05/17 11:38 Hemoglobin A1c % 5.8 % (4.0-6.0) 02/22/17 10:38 Whole Bld Lactic Acid 2.40 mmol/L (0.60-1.99) H* 02/27/17 15:04 Calcium 7.7 mg/dL (8.6-10.3) L 03/05/17 09:10 Phosphorus 2.5 mg/dL (2.5-5.0) 03/01/17 09:15 Magnesium 2.1 mg/dL (1.9-2.7) 03/01/17 09:15 Total Bilirubin 0.6 mg/dL (0.3-1.0) 03/01/17 09:15 Direct Bilirubin 0.09 mg/dL (0.0-0.2) 02/18/17 23:35 AST 20 U/L (13-39) 03/01/17 09:15 ALT 6 U/L (7-52) L 03/01/17 09:15 Alkaline Phosphatase 56 U/L (34-104) 03/01/17 09:15 Ammonia 38 umol/L (16-53) 03/01/17 17:28 B-Natriuretic Peptide 158.0 pg/mL (5.0-100.0) H 03/04/17 15:39 Total Protein 4.8 gm/dL (6.0-8.3) L 03/01/17 09:15 Albumin 3.1 gm/dL (3.7-5.3) L 03/01/17 09:15 Globulin 1.7 gm/dL 03/01/17 09:15 Albumin/Globulin Ratio 1.8 (1.0-1.8) 03/01/17 09:15 Amylase 36 U/L (29-103) 02/18/17 23:35 Lipase 10 U/L (11-82) L 02/18/17 23:35 Vitamin B12 860 pg/mL (232-1245) 02/26/17 04:45 Free T4 1.04 ng/dL (0.82-1.77) 02/25/17 04:50 Free T3 0.7 pg/mL (2.0-4.4) L 02/25/17 04:50 TSH 0.84 uIU/ml (0.34-5.60) 02/25/17 04:50 Urine Source [place] 02/27/17 15:00 Urine Color YELLOW 02/27/17 15:00 Urine Clarity CLOUDY (CLEAR) H 02/27/17 15:00 Urine pH 5.5 (4.6 - 8.0) 02/27/17 15:00 Ur Specific [place] <= 1.005 (1.005-1.030) 02/27/17 15:00 Urine Protein TRACE mg/dL (NEGATIVE) 02/27/17 15:00 Urine Glucose (UA) NEGATIVE mg/dL (NEGATIVE) 02/27/17 15:00 Urine Ketones NEGATIVE mg/dL (NEGATIVE) 02/27/17 15:00 Urine Blood LARGE (NEGATIVE) H 02/27/17 15:00 Urine Nitrate NEGATIVE (NEGATIVE) 02/27/17 15:00 Urine Bilirubin NEGATIVE (NEGATIVE) 02/27/17 15:00 Urine Urobilinogen 0.2 E.U./dL (0.2 - 1.0) 02/27/17 15:00 Ur Leukocyte Esterase LARGE (NEGATIVE) H 02/27/17 15:00 Urine RBC 10-25 /hpf (0-5) H 02/27/17 15:00 Urine WBC >100 /hpf (0-5) H 02/27/17 15:00 Ur Epithelial Cells MODERATE /lpf (FEW) 02/27/17 15:00 Urine Bacteria MODERATE /hpf (NONE SEEN) H 02/27/17 15:00 Urine Yeast MODERATE /hpf (NONE SEEN) H 02/20/17 16:15 Blood Type A POSITIVE 02/27/17 15:04 Antibody Screen NEGATIVE 02/27/17 15:04 Crossmatch See Detail 02/27/17 15:04 - Physical Exam Vitals and I&O: Vital Signs Temp 97.6 F 03/05/17 14:00 Pulse 115 03/05/17 16:30 Resp 27 03/05/17 15:00 BP 106/57 03/05/17 16:30 Pulse Ox 97 03/05/17 15:17 Intake & Output 03/04/17 03/05/17 03/05/17 18:59 06:59 18:59 Intake Total 2073.887 446.069 3134.151 Output Total 501 300 Balance 1572.887 573.162 3164.151 Weight (lbs) 118.478 kg 119.068 kg Intake: Intake, IV Amount 1693.887 081.026 6650.151 D5-0.9NS w/KCL 20mEq 1, 1000 1000 000 ml @ 75 mls/hr IV . [id number] [facility] Rx#:[id number] Linezolid 600mg/300mL 600 300 300 300 mg In 300 ml @ 300 mls/ hr IV Q12HR [facility] Rx#: [id number] Meropenem 1 gm In 200 100 100 Dextrose 5% 100 ml @ 100 mls/hr IV Q12H [facility] Rx#: [id number] Norepinephrine 8 mg In 193.887 156.348 174.151 Sodium Chloride 0.9% 250 ml @ Per Protocol IV TITR PATRIA Rx#:[id number] Pantoprazole 80 mg In 0 181.500 100 Sodium Chloride 0.9% 100 ml @ 10 mls/hr IV Q10H [facility] Rx#:[id number] Oral 0 Tube Feeding 480 TPN/PPN 380 Other 100 Output: Urine 500 300 Stool 1 0 Other: Stool Characteristics Soft Soft Soft Active Medications: Current Medications Acetaminophen (Tylenol) 650 mg PO Q4HR PRN PRN Reason: Pain (Mild) Stop: 04/20/17 12:01 Last Admin: 03/05/17 14:19 Dose: 650 mg Albumin Human (Albutein 25%) 12.5 gm IV Q8HR [facility] Stop: 03/05/17 20:59 Albuterol/Ipratropium (Duoneb Neb) 3 ml HHN Q4HRT PRN PRN Reason: Wheezing Stop: 04/27/17 19:59 Last Admin: 02/28/17 03:18 Dose: 3 ml Albuterol/Ipratropium (Duoneb Neb) 3 ml HHN [id number] [facility] Stop: 04/27/17 19:59 Last Admin: 03/05/17 13:25 Dose: 3 ml Aspirin (Ecotrin) 81 mg PO DAILY [facility] Stop: 04/21/17 08:59 Last Admin: 03/05/17 09:02 Dose: 81 mg Chlorhexidine Gluconate (Peridex) 15 ml MM 0800,1999 [facility] Stop: 04/28/17 19:59 Last Admin: 03/05/17 09:04 Dose: 15 ml Diltiazem HCl (Cardizem) 5 mg IVP Q4H PRN PRN Reason: HR > 120 Stop: 04/27/17 19:59 Last Admin: 02/27/17 04:59 Dose: 5 mg Docusate Sodium (Colace) 100 mg PO BID [facility] Stop: 04/20/17 16:59 Last Admin: 03/05/17 09:02 Dose: 100 mg Furosemide (Lasix) 40 mg PO DAILY [facility] Stop: 04/21/17 08:59 Last Admin: 03/05/17 09:02 Dose: 40 mg Pantoprazole Sodium 80 mg/ (Sodium Chloride) 100 mls @ 10 mls/hr IV Q10H [facility] Stop: 04/20/17 08:59 Last Admin: 03/05/17 15:54 Dose: 10 mls/hr Linezolid (Zyvox) 600 mg in 300 mls @ 300 mls/hr IV Q12HR [facility] Stop: 04/22/17 20:59 Last Infusion: 03/05/17 10:05 Dose: Infused Levofloxacin (Levaquin Pb) 250 mg in 50 mls @ 50 mls/hr IV Q24HR [facility] Stop: 04/23/17 20:59 Last Admin: 03/04/17 20:39 Dose: 50 mls/hr Phenylephrine HCl 10 mg/ (Sodium Chloride) 250 mls @ 0 mls/hr IV TITR PATRIA; Per Protocol PRN Reason: Protocol Stop: 04/28/17 07:59 Norepinephrine Bitartrate 8 mg (/ Sodium Chloride) 258 mls @ 0 mls/hr IV TITR PATRIA; Per Protocol PRN Reason: Protocol Stop: 04/28/17 09:59 Last Admin: 03/05/17 16:25 Dose: 6 mcg/min, 11.61 mls/hr Meropenem 1 gm/ Dextrose 100 mls @ 100 mls/hr IV Q12H [facility] Stop: 04/28/17 12:29 Last Infusion: 03/05/17 13:00 Dose: Infused Potassium Chloride/Dextrose/Sod Cl (D5-0.9ns W/Kcl 20meq) 1,000 mls @ 75 mls/ hr IV .[id number] PATRIA Stop: 04/30/17 14:41 Last Admin: 03/05/17 16:08 Dose: 75 mls/hr Albumin Human (Albutein 25%) 12.5 gm in 50 mls @ 50 mls/hr IV X1 ONE Stop: 03/05/17 17:29 Last Admin: 03/05/17 16:26 Dose: 50 mls/hr Insulin Aspart (Novolog Insulin Sliding Scale) 0 units SUBQ Q6H [facility]RIA PRN Reason: Protocol Stop: 05/03/17 00:00 Last Admin: 03/05/17 11:59 Dose: 4 units Mirtazapine (Remeron) 15 mg PO HS PATRIA PRN Reason: Protocol Stop: 04/26/17 20:59 Last Admin: 03/04/17 20:53 Dose: 15 mg Miscellaneous (Probiotic Screen) 1 ea MC PRN PRN PRN Reason: PROTOCOL Stop: 04/21/17 16:25 Morphine Sulfate (Morphine) 1 mg IVP Q4HR PRN PRN Reason: Severe Pain Stop: 05/04/17 14:13 Last Admin: 03/05/17 14:25 Dose: 1 mg Nitroglycerin (Nitrostat) 0.4 mg SL Q5MIN PRN PRN Reason: Chest Pain Stop: 04/20/17 12:01 Nystatin (Nystop) 100,000 units TP BID PRN PRN Reason: SKIN EXCORIATIONS Stop: 04/21/17 15:35 Last Admin: 03/04/17 20:45 Dose: 100,000 units Ondansetron HCl (Zofran) 4 mg IV Q6H PRN PRN Reason: Nausea Stop: 04/20/17 03:38 General: no acute distress, well developed, well nourished, cachectic HEENT: atraumatic, normocephalic, PERRLA, EOMI, moist mucous membrane Neck: supple, no thyromegaly Cardiovascular: S1S2, regular Lungs: clear to auscultation bilaterally, clear to percussion Abdomen: soft, no tender, no distended, no mass Extremities: cyanosis, clubbing, edema Neurological: awake, alert, oriented Skin: intact - Procedures Procedures: Procedures Procedure Code Date INSERT EMERGENCY AIRWAY 04268 12/23/17 INSERTION OF ENDOTRACHEAL AIRWAY INTO [place], VIA OPENING [id number] 02/19/17 RESPIRATORY VENTILATION, GREATER THAN 96 CONSECUTIVE HOURS [id number] 02/19/17 VENT MGMT INPAT INIT DAY 02/19/17 VENT MGMT INPAT SUBQ DAY 02/19/17 Infectious Disease Assmt/Plan - Problem List Patient Problems: All Active Problems Acute kidney failure (Acute) 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 Sepsis. 2. Pneumonia. 3. UTI, Candiduria. 4. Renal failure. 5. Hypotension 6. VDRF. - Plan Plan: DC Zyvox IV, and levaquin, continue meropenem. Nutritional Asmnt/Malnutr-PDOC - Dietary Evaluation Malnutrition Findings (Please click <Entered> for more info): Nutritional Asmnt/Malnutrition Start: 02/21/17 18: 20 Text: Status: Complete Freq: Document 02/21/17 18:21 LCHENG (Rec: 02/21/17 18:32 LCHENG [id number]) Nutritional Asmnt/Malnutrition Patient General Information Nutritional Screening High Risk Consult Diagnosis gastric outlet obstruction Pertinent Medical Hx/Surgical Hx HTN, OA, DM, GERD Subjective Information Pt seen sleeping at the time of visit, attempted x 2. Spoke with RN, pt consumed 50% of breakfast and only the soup of lunch today, not much appetite, no complain of N/V. Pt will be NPO from midnight for GI exam tommorrow. Current Diet Order/ Nutrition Support no added salt 4gm, CCHO, no eggs, banana and cereal in morning Pertinent Medications colace, lasix, novolog, levaquin, piperacillin Pertinent Labs 02/20 Na 137, K 4.5, Cl 104, BUN 55, Cr 1.6, Glucose 137, POC 126-199 since admit, Ca 8. 3 Nutritional Hx/Data Height 1.57 m Height (Calculated Centimeters) 157.5 Current Weight (lbs) 97.023 kg Weight (Calculated Kilograms) 97.0 Weight (Calculated Grams) 76225.4 [place] Body Weight 110 % [place] Body Weight 194 Body Mass Index (BMI) 39.1 Weight Status Obese GI Symptoms GI Symptoms None Last BM none Difficult in: None Skin Integrity/Comment: multiple maceration, abrasion to right/left medial thigh Current %PO Poor (25-49%) Estimated Nutritional Goals BEE in Kcals: Adj wt of IBW Calories/Kcals/Kg 27-32 Kcals Calculated Protein: Adj wt of IBW Protein g/k-1.2 Protein Calculated 62-74 Fluid: ml Nutritional Problem 1. Problem Problem inadequate PO intake Etiology poor appetite Signs/Symptoms: PO intake 25-50% Malnutrition Alert Protein-Calorie Malnutrition N/A Is there a minimum of two criteria No selected? Query Text:Check all the applicable criteria. A minimum of two criteria are recommended for diagnosis of either severe or non-severe malnutrition. Intervention/Recommendation Comments 1. Continue with current diet as ordered. 2. Monitor PO intake, GI symptons, wt, labs and skin integrity 3. F/U as high risk in 2-3 days, 02/23-02/24 Expected Outcomes/Goals Expected Outcomes/Goals 1. PO intake to meet at least 75% of nutritional needs. 2. Wt stability, skin to remain intact, labs to improve
[2017-03-05] MEDS: Levofloxacin 250 mg/50 mL Premix Bag IV SCH (21:15)
[2017-03-05] MEDS: Albumin 25% 12.5gm/50mL 12.5 GM/50 ML BTL IV SCH (21:31)
[2017-03-05] MEDS: metroNIDAZOLE 500mg/NS 100mL 500 MG/100 ML BAG IV SCH (21:48)
--- NOTE | 2017-03-05 22:43 | Progress Notes ---
DATE: 03/05/2017 SUBJECTIVE: The patient was seen in her room, lying on the bed. The patient is orally intubated, currently on 20 mics of Levophed, appears to be in no acute distress. OBJECTIVE: VITAL SIGNS: Temperature 97.6, heart rate 106, respirations 17, blood pressure 113/56, 100% by ventilator. HEENT: Head is atraumatic and normocephalic. Eyes: Bilateral conjunctivae are clear. Bilateral pupils are equally round and reactive. NECK: Supple. No JVD. CARDIOVASCULAR: S1 and S2, without murmur. Sinus tachycardia on the monitor. PULMONARY: Fine scattered rhonchi noted. The patient is orally intubated, connected to ventilator. GASTROINTESTINAL: Soft and nontender without guarding. Positive bowel sounds. GENITOURINARY: The patient does have nasogastric tube in place. MUSCULOSKELETAL: No clubbing, no cyanosis. Trace edema noted on bilateral lower extremities. ASSESSMENT: 1. Respiratory failure, currently orally intubated, connected to ventilator. 2. Dysphagia. 3. Sepsis. 4. Pneumonia. 5. Urinary tract infection. 6. Renal failure. 7. Hypotension. PLAN: We will continue to keep the patient in intensive care unit. The patient's condition is critical. We will try to wean off ventilator and also try to taper off Levophed drip. We are also going to monitor patient's intake and output and also we are going to monitor patient's nutritional status. Treatment plans were discussed with the patient's nurse. Treatment plans were discussed with Dr. Yates. JOB# [id number]
[2017-03-06] MEDS: INSULIN ASPART SLIDING SCALE 100 UNITS/ML UNIT SUBQ SCH ×4 (00:15→17:52)
[2017-03-06] MEDS: Morphine Sulfate 2 mg/mL 1mL Syr IVP PRN ×3 (00:26→12:02)
[2017-03-06] MEDS: metroNIDAZOLE 500mg/NS 100mL 500 MG/100 ML BAG IV SCH ×3 (04:46→22:14)
[2017-03-06] MEDS: Albumin 25% 12.5gm/50mL 12.5 GM/50 ML BTL IV SCH ×3 (04:47→20:15)
[2017-03-06] MEDS: Albuterol/Ipratropium Neb 3 ML AERS HHN SCH ×3 (06:19→19:21)
[2017-03-06 06:29] LABS: BASOPHILE ABSOLUTE 0.3 Th/cumm (0-0.2); EOSINOPHILE ABSOLUTE 0.7 Th/cmm (0.1-0.4); HEMATOCRIT 27.8 % (41.0-60); HEMOGLOBIN 9.9 gm/dL (12-16); LYMPHOCYTE ABSOLUTE 1.6 Th/cmm (1.5-3.0); MEAN CELL VOLUME 85.8 fl (81-100); MEAN CORPUSCULAR HEMOGLOBIN 30.5 pg (27.0-31.0); MEAN CORPUSCULAR HGB CONC 35.5 pg (28.0-36.0); MONOCYTE ABSOLUTE 0.8 Th/cmm (0.3-1.0); NEUTROPHILE ABSOLUTE 21.7 Th/cmm (1.8-8.0); RED BLOOD COUNT 3.23 Mil/cmm (3.80-5.20); RED CELL DISTRIBUTION WIDTH 13.2 % (11.5-20.0)
[2017-03-06] MEDS: NYSTATIN 100000 UNITS/GM POWD TP PRN (06:37)
[2017-03-06 06:59] LABS: CALCIUM SERUM 7.6 mg/dL (8.6-10.3); CARBON DIOXIDE 19.9 mEq/L (21.0-31.0); CREATININE - SERUM 1.8 mg/dL (0.6-1.2); GFR AFRICAN-AMERICAN 35.9 ml/min (>90); GFR NON AFRICAN-AMERICAN 29.7 ml/min; POTASSIUM SERUM 4.9 mEq/L (3.5-5.1)
[2017-03-06 07:21] LABS: WHITE BLOOD COUNT 25.1 Th/cmm (4.8-10.8)
[2017-03-06 07:22] LABS: PLATELET COUNT 30 Th/cmm (150-400)
[2017-03-06] MEDS: Multivitamin w/ Minerals Tab PO SCH (08:08)
[2017-03-06] MEDS: Chlorhexidine Gluconate 0.12% 15mL Mouthwash MM SCH ×2 (08:08→20:14)
[2017-03-06] MEDS: D5-0.9NS w/KCL 20mEq 1,000 ML IV SCH (08:20)
[2017-03-06 08:26] LABS: BAND NEUTROPHILE 5 % (0-10); EOSINOPHIL 3 % (0-5); LYMPHOCYTE 4 % (20-50); MONOCYTE 3 % (2-10); NEUTROPHILS 85 % (40-80); TOTAL CELLS COUNTED 100
[2017-03-06 08:27] LABS: PLATELET ESTIMATE DECREASED PLATELETS (NORMAL)
[2017-03-06] MEDS: Pantoprazole 80 MG in Sodium Chloride 0.9% 100 ML IV SCH ×2 (09:24→18:30)
--- NOTE | 2017-03-06 10:39 | General Progress Note ---
Subjective - Review of Systems Events since last encounter: remains on vent in no acute distress Objective - Results Result Diagrams: 03/06/17 06:00 03/06/17 06:00 Recent Labs: Laboratory Last Values WBC 25.1 Th/cmm (4.8-10.8) H* 03/06/17 06:00 RBC 3.23 Mil/cmm (3.80-5.20) L 03/06/17 06:00 Hgb 9.9 gm/dL (12-16) L 03/06/17 06:00 Hct 27.8 % (41.0-60) L D 03/06/17 06:00 MCV 85.8 fl (81-100) 03/06/17 06:00 MCH 30.5 pg (27.0-31.0) 03/06/17 06:00 MCHC Differential 35.5 pg (28.0-36.0) 03/06/17 06:00 RDW 13.2 % (11.5-20.0) 03/06/17 06:00 Plt Count 30 Th/cmm (150-400) L D 03/06/17 06:00 MPV 7.0 fl 03/06/17 06:00 Neutrophils % [employer] 02/25/17 04:50 Band Neutrophils % 5 % (0-10) 03/06/17 06:00 Lymphocytes % [employer] 02/25/17 04:50 Monocytes % [employer] 02/25/17 04:50 Eosinophils % [employer] RE[employer]UITER 02/25/17 04:50 Basophils % [employer] RE[employer] 02/25/17 04:50 Neutrophils (Manual) 85 % (40-80) H 03/06/17 06:00 Lymphocytes 4 % (20-50) L 03/06/17 06:00 Monocytes 3 % (2-10) 03/06/17 06:00 Eosinophils 3 % (0-5) 03/06/17 06:00 Metamyelocytes 1 % (0-0) H 02/18/17 23:35 Hypochromia 1+ 02/18/17 23:35 Platelet Estimate DECREASED PLATELETS (NORMAL) 03/06/17 06:00 Platelet Morphology (NORMAL) 03/04/17 08:00 PT 13.9 SECONDS (9.5-11.5) H 03/01/17 09:15 INR 1.32 (0.5-1.4) 03/01/17 09:15 PTT (Actin FS) 53.1 SECONDS (26.0-38.0) H 03/01/17 09:15 Specimen Source Arterial 03/05/17 10:40 Sample Site Right Radial 03/05/17 10:40 pH 7.32 (7.35-7.45) L 03/05/17 10:40 pCO2 37.0 mmHg (35.0-45.0) 03/05/17 10:40 pO2 67.0 mmHg (80.0-100.0) L 03/05/17 10:40 HCO3 19.8 mEq/L (20.0-26.0) L 03/05/17 10:40 Base Excess -6.4 mEq/L (-3.0-3.0) L 03/05/17 10:40 O2 Saturation 91.0 % (92.0-100.0) L 03/05/17 10:40 Jorje Test PASS 03/05/17 10:40 Vent Rate 10 03/05/17 10:40 Inspired O2 30 03/05/17 10:40 Tidal Volume 550 03/05/17 10:40 PEEP 5 03/05/17 10:40 Pressure (ins/psv/peep) 10 03/05/17 10:40 Critical Value PW 03/05/17 10:40 Sodium 132 mEq/L (136-145) L 03/06/17 06:00 Potassium 4.9 mEq/L (3.5-5.1) 03/06/17 06:00 Chloride 103 mEq/L (98-107) 03/06/17 06:00 Carbon Dioxide 19.9 mEq/L (21.0-31.0) L 03/06/17 06:00 Anion Gap 14.0 (7.0-16.0) 03/06/17 06:00 BUN 43 mg/dL (7-25) H 03/06/17 06:00 Creatinine 1.8 mg/dL (0.6-1.2) H 03/06/17 06:00 Est GFR ( Amer) 35.9 ml/min (>90) 03/06/17 06:00 Est GFR (Non-Af Amer) 29.7 ml/min 03/06/17 06:00 BUN/Creatinine Ratio 23.9 03/06/17 06:00 Glucose 158 mg/dL (70-105) H 03/06/17 06:00 POC Glucose 150 MG/DL (70 - 105) H 03/06/17 06:06 Hemoglobin A1c % 5.8 % (4.0-6.0) 02/22/17 10:38 Whole Bld Lactic Acid 2.40 mmol/L (0.60-1.99) H* 02/27/17 15:04 Calcium 7.6 mg/dL (8.6-10.3) L 03/06/17 06:00 Phosphorus 2.5 mg/dL (2.5-5.0) 03/01/17 09:15 Magnesium 2.1 mg/dL (1.9-2.7) 03/01/17 09:15 Total Bilirubin 0.6 mg/dL (0.3-1.0) 03/01/17 09:15 Direct Bilirubin 0.09 mg/dL (0.0-0.2) 02/18/17 23:35 AST 20 U/L (13-39) 03/01/17 09:15 ALT 6 U/L (7-52) L 03/01/17 09:15 Alkaline Phosphatase 56 U/L (34-104) 03/01/17 09:15 Ammonia 38 umol/L (16-53) 03/01/17 17:28 B-Natriuretic Peptide 158.0 pg/mL (5.0-100.0) H 03/04/17 15:39 Total Protein 4.8 gm/dL (6.0-8.3) L 03/01/17 09:15 Albumin 3.1 gm/dL (3.7-5.3) L 03/01/17 09:15 Globulin 1.7 gm/dL 03/01/17 09:15 Albumin/Globulin Ratio 1.8 (1.0-1.8) 03/01/17 09:15 Amylase 36 U/L (29-103) 02/18/17 23:35 Lipase 10 U/L (11-82) L 02/18/17 23:35 Vitamin B12 860 pg/mL (232-1245) 02/26/17 04:45 Free T4 1.04 ng/dL (0.82-1.77) 02/25/17 04:50 Free T3 0.7 pg/mL (2.0-4.4) L 02/25/17 04:50 TSH 0.84 uIU/ml (0.34-5.60) 02/25/17 04:50 Urine Source [place] 02/27/17 15:00 Urine Color YELLOW 02/27/17 15:00 Urine Clarity CLOUDY (CLEAR) H 02/27/17 15:00 Urine pH 5.5 (4.6 - 8.0) 02/27/17 15:00 Ur Specific [place] <= 1.005 (1.005-1.030) 02/27/17 15:00 Urine Protein TRACE mg/dL (NEGATIVE) 02/27/17 15:00 Urine Glucose (UA) NEGATIVE mg/dL (NEGATIVE) 02/27/17 15:00 Urine Ketones NEGATIVE mg/dL (NEGATIVE) 02/27/17 15:00 Urine Blood LARGE (NEGATIVE) H 02/27/17 15:00 Urine Nitrate NEGATIVE (NEGATIVE) 02/27/17 15:00 Urine Bilirubin NEGATIVE (NEGATIVE) 02/27/17 15:00 Urine Urobilinogen 0.2 E.U./dL (0.2 - 1.0) 02/27/17 15:00 Ur Leukocyte Esterase LARGE (NEGATIVE) H 02/27/17 15:00 Urine RBC 10-25 /hpf (0-5) H 02/27/17 15:00 Urine WBC >100 /hpf (0-5) H 02/27/17 15:00 Ur Epithelial Cells MODERATE /lpf (FEW) 02/27/17 15:00 Urine Bacteria MODERATE /hpf (NONE SEEN) H 02/27/17 15:00 Urine Yeast MODERATE /hpf (NONE SEEN) H 02/20/17 16:15 Blood Type A POSITIVE 02/27/17 15:04 Antibody Screen NEGATIVE 02/27/17 15:04 Crossmatch See Detail 02/27/17 15:04 - Physical Exam Vitals and I&O: Vital Signs Temp 97.6 F 03/06/17 04:00 Pulse 101 03/06/17 10:19 Resp 25 03/06/17 07:00 BP 120/53 03/06/17 09:15 Pulse Ox 100 03/06/17 10:19 Intake & Output 03/05/17 03/06/17 03/06/17 18:59 06:59 18:59 Intake Total 2304.151 2159.555 100 Output Total 300 350 Balance 2004.151 1809.555 100 Weight (lbs) 119.068 kg 119.748 kg Intake: Intake, IV Amount 8918.597 1704.555 100 Albumin 25% 12.5gm/50mL 50 12.5 gm In 50 ml @ 50 mls /hr IV Q8HR [facility] Rx#: [id number] Albumin 25% 12.5gm/50mL 50 12.5 gm In 50 ml @ 50 mls /hr IV X1 ONE Rx#: [id number] D5-0.9NS w/KCL 20mEq 1, 1000 1000 000 ml @ 75 mls/hr IV . [id number] [facility] Rx#:[id number] Linezolid 600mg/300mL 600 300 mg In 300 ml @ 300 mls/ hr IV Q12HR [facility] Rx#: [id number] Meropenem 1 gm In 100 Dextrose 5% 100 ml @ 100 mls/hr IV Q12H [facility] Rx#: [id number] Norepinephrine 8 mg In 174.151 337.722 Sodium Chloride 0.9% 250 ml @ Per Protocol IV TITR [facility] Rx#:[id number] Pantoprazole 80 mg In 100 71.833 100 Sodium Chloride 0.9% 100 ml @ 10 mls/hr IV Q10H [facility] Rx#:[id number] metroNIDAZOLE 500mg/NS 100 100mL 500 mg In 100 ml @ 100 mls/hr IV Q8HR [facility] Rx #:[id number] Oral 0 0 Tube Feeding 480 400 Albumin 200 Other 100 Output: Urine 300 350 Stool 0 Other: # Bowel Movements 0 Stool Characteristics Soft Soft Soft Active Medications: Current Medications Acetaminophen (Tylenol) 650 mg PO Q4HR PRN PRN Reason: Pain (Mild) Stop: 04/20/17 12:01 Last Admin: 03/06/17 03:23 Dose: 650 mg Albuterol/Ipratropium (Duoneb Neb) 3 ml HHN Q4HRT PRN PRN Reason: Wheezing Stop: 04/27/17 19:59 Last Admin: 02/28/17 03:18 Dose: 3 ml Albuterol/Ipratropium (Duoneb Neb) 3 ml HHN [id number] PATRIA Stop: 04/27/17 19:59 Last Admin: 03/06/17 06:19 Dose: 3 ml Aspirin (Ecotrin) 81 mg PO DAILY [facility] Stop: 04/21/17 08:59 Last Admin: 03/06/17 08:08 Dose: 81 mg Chlorhexidine Gluconate (Peridex) 15 ml MM 08,1999 [facility] Stop: 04/28/17 19:59 Last Admin: 03/06/17 08:08 Dose: 15 ml Diltiazem HCl (Cardizem) 5 mg IVP Q4H PRN PRN Reason: HR > 120 Stop: 04/27/17 19:59 Last Admin: 02/27/17 04:59 Dose: 5 mg Docusate Sodium (Colace) 100 mg PO BID [facility] Stop: 04/20/17 16:59 Last Admin: 03/06/17 08:08 Dose: 100 mg Furosemide (Lasix) 40 mg PO DAILY [facility] Stop: 04/21/17 08:59 Last Admin: 03/06/17 08:08 Dose: 40 mg Pantoprazole Sodium 80 mg/ (Sodium Chloride) 100 mls @ 10 mls/hr IV Q10H [facility] Stop: 04/20/17 08:59 Last Admin: 03/06/17 09:24 Dose: 10 mls/hr Levofloxacin (Levaquin Pb) 250 mg in 50 mls @ 50 mls/hr IV Q24HR [facility] Stop: 04/23/17 20:59 Last Admin: 03/05/17 21:15 Dose: 50 mls/hr Phenylephrine HCl 10 mg/ (Sodium Chloride) 250 mls @ 0 mls/hr IV TITR PATRIA; Per Protocol PRN Reason: Protocol Stop: 04/28/17 07:59 Norepinephrine Bitartrate 8 mg (/ Sodium Chloride) 258 mls @ 0 mls/hr IV TITR PATRIA; Per Protocol PRN Reason: Protocol Stop: 04/28/17 09:59 Last Admin: 03/06/17 06:37 Dose: 20 mcg/min, 38.7 mls/hr Meropenem 1 gm/ Dextrose 100 mls @ 100 mls/hr IV Q12H [facility] Stop: 04/28/17 12:29 Last Admin: 03/06/17 00:26 Dose: 100 mls/hr Potassium Chloride/Dextrose/Sod Cl (D5-0.9ns W/Kcl 20meq) 1,000 mls @ 75 mls/ hr IV .[id number] [facility] Stop: 04/30/17 14:41 Last Admin: 03/06/17 08:20 Dose: 75 mls/hr Metronidazole (Flagyl) 500 mg in 100 mls @ 100 mls/hr IV Q8HR [facility] Stop: 05/04/17 20:59 Last Admin: 03/06/17 04:46 Dose: 100 mls/hr Albumin Human (Albutein 25%) 12.5 gm in 50 mls @ 50 mls/hr IV Q8HR [facility] Stop: 03/08/17 13:59 Last Admin: 03/06/17 04:47 Dose: 50 mls/hr Insulin Aspart (Novolog Insulin Sliding Scale) 0 units SUBQ Q6H PATRIA PRN Reason: Protocol Stop: 05/03/17 00:00 Last Admin: 03/06/17 06:00 Dose: Not Given Mirtazapine (Remeron) 15 mg PO HS PATRIA PRN Reason: Protocol Stop: 04/26/17 20:59 Last Admin: 03/05/17 21:33 Dose: 15 mg Miscellaneous (Probiotic Screen) 1 ea MC PRN PRN PRN Reason: PROTOCOL Stop: 04/21/17 16:25 Morphine Sulfate (Morphine) 1 mg IVP Q4HR PRN PRN Reason: Severe Pain Stop: 05/04/17 14:13 Last Admin: 03/06/17 05:24 Dose: 1 mg Nitroglycerin (Nitrostat) 0.4 mg SL Q5MIN PRN PRN Reason: Chest Pain Stop: 04/20/17 12:01 Nystatin (Nystop) 100,000 units TP BID PRN PRN Reason: SKIN EXCORIATIONS Stop: 04/21/17 15:35 Last Admin: 03/06/17 06:37 Dose: 100,000 units Ondansetron HCl (Zofran) 4 mg IV Q6H PRN PRN Reason: Nausea Stop: 04/20/17 03:38 General: Alert, No acute distress HEENT: Atraumatic, EOMI Neck: Supple, JVD, +2 carotid pulse wo bruit Cardiovascular: Regular rate, Normal S1, Normal S2 Lungs: Other (coarse rhonchi) Abdomen: Bowel sounds, Soft Extremities: Other (min edema) Neurological: Sensation intact Skin: no Rash Psych/Mental Status: Mood NL - Procedures Procedures: Procedures Procedure Code Date INSERT EMERGENCY AIRWAY 82905 02/19/17 INSERTION OF ENDOTRACHEAL AIRWAY INTO [place], VIA OPENING [id number] 02/19/17 RESPIRATORY VENTILATION, GREATER THAN 96 CONSECUTIVE HOURS [id number] 02/19/17 VENT MGMT INPAT INIT DAY 02/19/17 VENT MGMT INPAT SUBQ DAY 02/19/17 Assessment/Plan - Problem List Patient Problems: All Active Problems Acute kidney failure (Acute) 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 Azotemia (Acute) R79.89 Bradycardia (Acute) R00.1 COPD (chronic obstructive pulmonary disease) (Acute) Cardiomegaly (Acute) I51.7 Chest pain (Acute) R07.9 Decubitus ulcer of buttock, 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 Nutritional Asmnt/Malnutr-PDOC - Dietary Evaluation Malnutrition Findings (Please click <Entered> for more info): Nutritional Asmnt/Malnutrition Start: 02/21/17 18: 20 Text: Status: Complete Freq: Document 02/21/17 18:21 ANCELMOG (Rec: 02/21/17 18:32 [email or web address] Nutritional Asmnt/Malnutrition Patient General Information Nutritional Screening High Risk Consult Diagnosis gastric outlet obstruction Pertinent Medical Hx/Surgical Hx HTN, OA, DM, GERD Subjective Information Pt seen sleeping at the time of visit, attempted x 2. Spoke with RN, pt consumed 50% of breakfast and only the soup of lunch today, not much appetite, no complain of N/V. Pt will be NPO from midnight for GI exam tommorrow. Current Diet Order/ Nutrition Support no added salt 4gm, CCHO, no eggs, banana and cereal in morning Pertinent Medications colace, lasix, novolog, levaquin, piperacillin Pertinent Labs 02/20 Na 137, K 4.5, Cl 104, BUN 55, Cr 1.6, Glucose 137, POC 126-199 since admit, Ca 8. 3 Nutritional Hx/Data Height 1.57 m Height (Calculated Centimeters) 157.5 Current Weight (lbs) 97.023 kg Weight (Calculated Kilograms) 97.0 Weight (Calculated Grams) 68714.4 [place] Body Weight 110 % [place] Body Weight 194 Body Mass Index (BMI) 39.1 Weight Status Obese GI Symptoms GI Symptoms None Last BM none Difficult in: None Skin Integrity/Comment: multiple maceration, abrasion to right/left medial thigh Current %PO Poor (25-49%) Estimated Nutritional Goals BEE in Kcals: Adj wt of IBW Calories/Kcals/Kg 27-32 Kcals Calculated Protein: Adj wt of IBW Protein g/k-1.2 Protein Calculated 62-74 Fluid: ml Nutritional Problem 1. Problem Problem inadequate PO intake Etiology poor appetite Signs/Symptoms: PO intake 25-50% Malnutrition Alert Protein-Calorie Malnutrition N/A Is there a minimum of two criteria No selected? Query Text:Check all the applicable criteria. A minimum of two criteria are recommended for diagnosis of either severe or non-severe malnutrition. Intervention/Recommendation Comments 1. Continue with current diet as ordered. 2. Monitor PO intake, GI symptons, wt, labs and skin integrity 3. F/U as high risk in 2-3 days, 02/23-02/24 Expected Outcomes/Goals Expected Outcomes/Goals 1. PO intake to meet at least 75% of nutritional needs. 2. Wt stability, skin to remain intact, labs to improve
--- NOTE | 2017-03-06 15:53 | General Progress Note ---
Subjective - Review of Systems Service Date: 03/06/17 Subjective: much alert, on vent Objective - Results Result Diagrams: 03/06/17 06:00 03/06/17 06:00 Recent Labs: Laboratory Last Values WBC 25.1 Th/cmm (4.8-10.8) H* 03/06/17 06:00 RBC 3.23 Mil/cmm (3.80-5.20) L 03/06/17 06:00 Hgb 9.9 gm/dL (12-16) L 03/06/17 06:00 Hct 27.8 % (41.0-60) L D 03/06/17 06:00 MCV 85.8 fl (81-100) 03/06/17 06:00 MCH 30.5 pg (27.0-31.0) 03/06/17 06:00 MCHC Differential 35.5 pg (28.0-36.0) 03/06/17 06:00 RDW 13.2 % (11.5-20.0) 03/06/17 06:00 Plt Count 30 Th/cmm (150-400) L D 03/06/17 06:00 MPV 7.0 fl 03/06/17 06:00 Neutrophils % CROSSBAR FRAME WIRER 02/25/17 04:50 Band Neutrophils % 5 % (0-10) 03/06/17 06:00 Lymphocytes % [place] FRAME WIRER 02/25/17 04:50 Monocytes % CROSSB[place] FRAME WIRER 02/25/17 04:50 Eosinophils % CROSSBAR FRAME WIRER 02/25/17 04:50 Basophils % CROSSBAR FRAME WIRER 02/25/17 04:50 Neutrophils (Manual) 85 % (40-80) H 03/06/17 06:00 Lymphocytes 4 % (20-50) L 03/06/17 06:00 Monocytes 3 % (2-10) 03/06/17 06:00 Eosinophils 3 % (0-5) 03/06/17 06:00 Metamyelocytes 1 % (0-0) H 02/18/17 23:35 Hypochromia 1+ 02/18/17 23:35 Platelet Estimate DECREASED PLATELETS (NORMAL) 03/06/17 06:00 Platelet Morphology (NORMAL) 03/04/17 08:00 PT 13.9 SECONDS (9.5-11.5) H 03/01/17 09:15 INR 1.32 (0.5-1.4) 03/01/17 09:15 PTT (Actin FS) 53.1 SECONDS (26.0-38.0) H 03/01/17 09:15 Specimen Source Arterial 03/05/17 10:40 Sample Site Right Radial 03/05/17 10:40 pH 7.32 (7.35-7.45) L 03/05/17 10:40 pCO2 37.0 mmHg (35.0-45.0) 03/05/17 10:40 pO2 67.0 mmHg (80.0-100.0) L 03/05/17 10:40 HCO3 19.8 mEq/L (20.0-26.0) L 03/05/17 10:40 Base Excess -6.4 mEq/L (-3.0-3.0) L 03/05/17 10:40 O2 Saturation 91.0 % (92.0-100.0) L 03/05/17 10:40 Jorje Test PASS 03/05/17 10:40 Vent Rate 10 03/05/17 10:40 Inspired O2 30 03/05/17 10:40 Tidal Volume 550 03/05/17 10:40 PEEP 5 03/05/17 10:40 Pressure (ins/psv/peep) 10 03/05/17 10:40 Critical Value PW 03/05/17 10:40 Sodium 132 mEq/L (136-145) L 03/06/17 06:00 Potassium 4.9 mEq/L (3.5-5.1) 03/06/17 06:00 Chloride 103 mEq/L (98-107) 03/06/17 06:00 Carbon Dioxide 19.9 mEq/L (21.0-31.0) L 03/06/17 06:00 Anion Gap 14.0 (7.0-16.0) 03/06/17 06:00 BUN 43 mg/dL (7-25) H 03/06/17 06:00 Creatinine 1.8 mg/dL (0.6-1.2) H 03/06/17 06:00 Est GFR ( Amer) 35.9 ml/min (>90) 03/06/17 06:00 Est GFR (Non-Af Amer) 29.7 ml/min 03/06/17 06:00 BUN/Creatinine Ratio 23.9 03/06/17 06:00 Glucose 158 mg/dL (70-105) H 03/06/17 06:00 POC Glucose 224 MG/DL (70 - 105) H 03/06/17 11:51 Hemoglobin A1c % 5.8 % (4.0-6.0) 02/22/17 10:38 Whole Bld Lactic Acid 2.40 mmol/L (0.60-1.99) H* 02/27/17 15:04 Calcium 7.6 mg/dL (8.6-10.3) L 03/06/17 06:00 Phosphorus 2.5 mg/dL (2.5-5.0) 03/01/17 09:15 Magnesium 2.1 mg/dL (1.9-2.7) 03/01/17 09:15 Total Bilirubin 0.6 mg/dL (0.3-1.0) 03/01/17 09:15 Direct Bilirubin 0.09 mg/dL (0.0-0.2) 02/18/17 23:35 AST 20 U/L (13-39) 03/01/17 09:15 ALT 6 U/L (7-52) L 03/01/17 09:15 Alkaline Phosphatase 56 U/L (34-104) 03/01/17 09:15 Ammonia 38 umol/L (16-53) 03/01/17 17:28 B-Natriuretic Peptide 158.0 pg/mL (5.0-100.0) H 03/04/17 15:39 Total Protein 4.8 gm/dL (6.0-8.3) L 03/01/17 09:15 Albumin 3.1 gm/dL (3.7-5.3) L 03/01/17 09:15 Globulin 1.7 gm/dL 03/01/17 09:15 Albumin/Globulin Ratio 1.8 (1.0-1.8) 03/01/17 09:15 Amylase 36 U/L (29-103) 02/18/17 23:35 Lipase 10 U/L (11-82) L 02/18/17 23:35 Vitamin B12 860 pg/mL (232-1245) 02/26/17 04:45 Free T4 1.04 ng/dL (0.82-1.77) 02/25/17 04:50 Free T3 0.7 pg/mL (2.0-4.4) L 02/25/17 04:50 TSH 0.84 uIU/ml (0.34-5.60) 02/25/17 04:50 Urine Source [place] 02/27/17 15:00 Urine Color YELLOW 02/27/17 15:00 Urine Clarity CLOUDY (CLEAR) H 02/27/17 15:00 Urine pH 5.5 (4.6 - 8.0) 02/27/17 15:00 Ur Specific [place] <= 1.005 (1.005-1.030) 02/27/17 15:00 Urine Protein TRACE mg/dL (NEGATIVE) 02/27/17 15:00 Urine Glucose (UA) NEGATIVE mg/dL (NEGATIVE) 02/27/17 15:00 Urine Ketones NEGATIVE mg/dL (NEGATIVE) 02/27/17 15:00 Urine Blood LARGE (NEGATIVE) H 02/27/17 15:00 Urine Nitrate NEGATIVE (NEGATIVE) 02/27/17 15:00 Urine Bilirubin NEGATIVE (NEGATIVE) 02/27/17 15:00 Urine Urobilinogen 0.2 E.U./dL (0.2 - 1.0) 02/27/17 15:00 Ur Leukocyte Esterase LARGE (NEGATIVE) H 02/27/17 15:00 Urine RBC 10-25 /hpf (0-5) H 02/27/17 15:00 Urine WBC >100 /hpf (0-5) H 02/27/17 15:00 Ur Epithelial Cells MODERATE /lpf (FEW) 02/27/17 15:00 Urine Bacteria MODERATE /hpf (NONE SEEN) H 02/27/17 15:00 Urine Yeast MODERATE /hpf (NONE SEEN) H 02/20/17 16:15 Blood Type A POSITIVE 02/27/17 15:04 Antibody Screen NEGATIVE 02/27/17 15:04 Crossmatch See Detail 02/27/17 15:04 - Physical Exam Vitals and I&O: Vital Signs Temp 97.1 F 03/06/17 13:00 Pulse 102 03/06/17 13:45 Resp 24 03/06/17 13:00 BP 115/52 03/06/17 13:45 Pulse Ox 97 03/06/17 14:00 Intake & Output 01/06/18 01/07/18 01/07/18 18:59 06:59 18:59 Intake Total 2304.151 2409.555 458 Output Total 300 350 Balance 2004.151 2059.555 458 Weight (lbs) 119.068 kg 119.748 kg Intake: Intake, IV Amount 4552.820 0052.555 458 Albumin 25% 12.5gm/50mL 100 12.5 gm In 50 ml @ 50 mls /hr IV Q8HR [facility] Rx#: [id number] Albumin 25% 12.5gm/50mL 50 12.5 gm In 50 ml @ 50 mls /hr IV X1 ONE Rx#: [id number] D5-0.9NS w/KCL 20mEq 1, 1000 1000 000 ml @ 75 mls/hr IV . [id number] [facility] Rx#:[id number] Linezolid 600mg/300mL 600 300 mg In 300 ml @ 300 mls/ hr IV Q12HR [facility] Rx#: [id number] Meropenem 1 gm In 100 100 100 Dextrose 5% 100 ml @ 100 mls/hr IV Q12H [facility] Rx#: [id number] Norepinephrine 8 mg In 174.151 337.722 258 Sodium Chloride 0.9% 250 ml @ Per Protocol IV TITR [facility] Rx#:[id number] Pantoprazole 80 mg In 100 71.833 100 Sodium Chloride 0.9% 100 ml @ 10 mls/hr IV Q10H [facility] Rx#:[id number] metroNIDAZOLE 500mg/NS 200 100mL 500 mg In 100 ml @ 100 mls/hr IV Q8HR [facility] Rx #:[id number] Oral 0 0 Tube Feeding 480 400 Albumin 200 Other 100 Output: Urine 300 350 Stool 0 Other: # Bowel Movements 0 Stool Characteristics Soft Soft Soft Active Medications: Current Medications Acetaminophen (Tylenol) 650 mg PO Q4HR PRN PRN Reason: Pain (Mild) Stop: 04/20/17 12:01 Last Admin: 03/06/17 03:23 Dose: 650 mg Albuterol/Ipratropium (Duoneb Neb) 3 ml HHN Q4HRT PRN PRN Reason: Wheezing Stop: 04/27/17 19:59 Last Admin: 02/28/17 03:18 Dose: 3 ml Albuterol/Ipratropium (Duoneb Neb) 3 ml HHN [id number] PATRIA Stop: 04/27/17 19:59 Last Admin: 03/06/17 13:35 Dose: 3 ml Aspirin (Ecotrin) 81 mg PO DAILY [facility] Stop: 04/21/17 08:59 Last Admin: 03/06/17 08:08 Dose: 81 mg Chlorhexidine Gluconate (Peridex) 15 ml MM 799,1999 [facility] Stop: 04/28/17 19:59 Last Admin: 03/06/17 08:08 Dose: 15 ml Diltiazem HCl (Cardizem) 5 mg IVP Q4H PRN PRN Reason: HR > 120 Stop: 04/27/17 19:59 Last Admin: 02/27/17 04:59 Dose: 5 mg Docusate Sodium (Colace) 100 mg PO BID [facility] Stop: 04/20/17 16:59 Last Admin: 03/06/17 08:08 Dose: 100 mg Furosemide (Lasix) 40 mg PO DAILY [facility] Stop: 04/21/17 08:59 Last Admin: 03/06/17 08:08 Dose: 40 mg Pantoprazole Sodium 80 mg/ (Sodium Chloride) 100 mls @ 10 mls/hr IV Q10H [facility] Stop: 04/20/17 08:59 Last Admin: 03/06/17 09:24 Dose: 10 mls/hr Levofloxacin (Levaquin Pb) 250 mg in 50 mls @ 50 mls/hr IV Q24HR [facility] Stop: 04/23/17 20:59 Last Admin: 03/05/17 21:15 Dose: 50 mls/hr Phenylephrine HCl 10 mg/ (Sodium Chloride) 250 mls @ 0 mls/hr IV TITR PATRIA; Per Protocol PRN Reason: Protocol Stop: 04/28/17 07:59 Norepinephrine Bitartrate 8 mg (/ Sodium Chloride) 258 mls @ 0 mls/hr IV TITR PATRIA; Per Protocol PRN Reason: Protocol Stop: 04/28/17 09:59 Last Admin: 03/06/17 14:07 Dose: 20 mcg/min, 38.7 mls/hr Meropenem 1 gm/ Dextrose 100 mls @ 100 mls/hr IV Q12H [facility] Stop: 04/28/17 12:29 Last Infusion: 03/06/17 13:21 Dose: Infused Potassium Chloride/Dextrose/Sod Cl (D5-0.9ns W/Kcl 20meq) 1,000 mls @ 75 mls/ hr IV .[id number] [facility] Stop: 04/30/17 14:41 Last Admin: 03/06/17 08:20 Dose: 75 mls/hr Metronidazole (Flagyl) 500 mg in 100 mls @ 100 mls/hr IV Q8HR [facility] Stop: 05/04/17 20:59 Last Admin: 03/06/17 13:30 Dose: 100 mls/hr Albumin Human (Albutein 25%) 12.5 gm in 50 mls @ 50 mls/hr IV Q8HR [facility] Stop: 03/08/17 13:59 Last Admin: 03/06/17 13:13 Dose: 50 mls/hr Insulin Aspart (Novolog Insulin Sliding Scale) 0 units SUBQ Q6H [facility] PRN Reason: Protocol Stop: 05/03/17 00:00 Last Admin: 03/06/17 12:02 Dose: 4 units Metoclopramide HCl (Reglan) 5 mg IVP Q6HR [facility] Stop: 05/05/17 17:59 Mirtazapine (Remeron) 15 mg PO HS [facility] PRN Reason: Protocol Stop: 04/26/17 20:59 Last Admin: 03/05/17 21:33 Dose: 15 mg Miscellaneous (Probiotic Screen) 1 ea MC PRN PRN PRN Reason: PROTOCOL Stop: 04/21/17 16:25 Morphine Sulfate (Morphine) 1 mg IVP Q4HR PRN PRN Reason: Severe Pain Stop: 05/04/17 14:13 Last Admin: 03/06/17 12:02 Dose: 1 mg Nitroglycerin (Nitrostat) 0.4 mg SL Q5MIN PRN PRN Reason: Chest Pain Stop: 04/20/17 12:01 Nystatin (Nystop) 100,000 units TP BID PRN PRN Reason: SKIN EXCORIATIONS Stop: 04/21/17 15:35 Last Admin: 03/06/17 06:37 Dose: 100,000 units Ondansetron HCl (Zofran) 4 mg IV Q6H PRN PRN Reason: Nausea Stop: 04/20/17 03:38 General: Alert, No acute distress HEENT: Atraumatic, EOMI Neck: Supple, JVD, +2 carotid pulse wo bruit Cardiovascular: Regular rate, Normal S1, Normal S2 Lungs: Other (coarse rhonchi) Abdomen: Bowel sounds, Soft Extremities: Other (min edema) Neurological: Sensation intact Skin: no Rash Psych/Mental Status: Mood NL - Procedures Procedures: Procedures Procedure Code Date INSERT EMERGENCY AIRWAY 40041 02/19/17 INSERTION OF ENDOTRACHEAL AIRWAY INTO TRACHEA, VIA OPENING [id number] 02/19/17 RESPIRATORY VENTILATION, GREATER THAN 96 CONSECUTIVE HOURS [id number] 02/19/17 VENT MGMT INPAT INIT DAY 57259 02/19/17 VENT MGMT INPAT SUBQ DAY 73289 02/19/17 Assessment/Plan - Problem List Patient Problems: All Active Problems Acute kidney failure (Acute) 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 Azotemia (Acute) R79.89 Bradycardia (Acute) R00.1 COPD (chronic obstructive pulmonary disease) (Acute) Cardiomegaly (Acute) I51.7 Chest pain (Acute) R07.9 Decubitus ulcer of buttock, 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 - Assessment Assessment: SOHAIL on CKD Acute resp failure on vent 2nd CHF, HAP, possible SOFIE, Exacerbation COPD Shock Sepsis DJD Type 2 DM GERD SOFIE Hyponatremia S/p [place] Thacker - Plan Plan: Lab - Result Diagrams 03/01/17 09:15 03/01/17 09:15 Current Medications Acetaminophen (Tylenol) 650 mg PO Q4HR PRN PRN Reason: Pain (Mild) Stop: 04/20/17 12:01 Last Admin: 02/21/17 09:54 Dose: 650 mg Acetaminophen/Hydrocodone Bitart ([place] 5mg/325mg) 1 tab PO Q6H PRN PRN Reason: PAIN Stop: 04/20/17 13:24 Albuterol/Ipratropium (Duoneb Neb) 3 ml HHN Q4HRT PRN PRN Reason: Wheezing Stop: 04/27/17 19:59 Last Admin: 02/28/17 03:18 Dose: 3 ml Albuterol/Ipratropium (Duoneb Neb) 3 ml HHN [id number] PATRIA Stop: 04/27/17 19:59 Last Admin: 03/01/17 13:49 Dose: 3 ml Aspirin (Ecotrin) 81 mg PO DAILY [facility] Stop: 04/21/17 08:59 Last Admin: 03/01/17 09:30 Dose: Not Given Chlorhexidine Gluconate (Peridex) 15 ml MM 08,1999 [facility] Stop: 04/28/17 19:59 Last Admin: 03/01/17 08:30 Dose: 15 ml Diltiazem HCl (Cardizem) 5 mg IVP Q4H PRN PRN Reason: HR > 120 Stop: 04/27/17 19:59 Last Admin: 02/27/17 04:59 Dose: 5 mg Docusate Sodium (Colace) 100 mg PO BID [facility] Stop: 04/20/17 16:59 Last Admin: 03/01/17 09:31 Dose: Not Given Fluconazole (Diflucan) 100 mg PO DAILY [facility] Stop: 03/08/17 08:59 Last Admin: 03/01/17 09:31 Dose: Not Given Furosemide (Lasix) 40 mg PO DAILY [facility] Stop: 04/21/17 08:59 Last Admin: 03/01/17 09:31 Dose: Not Given Pantoprazole Sodium 80 mg/ (Sodium Chloride) 100 mls @ 10 mls/hr IV Q10H [facility] Stop: 04/20/17 08:59 Last Admin: 03/01/17 09:31 Dose: 10 mls/hr Linezolid (Zyvox) 600 mg in 300 mls @ 300 mls/hr IV Q12HR [facility] Stop: 04/22/17 20:59 Last Infusion: 03/01/17 10:00 Dose: Infused Levofloxacin (Levaquin Pb) 250 mg in 50 mls @ 50 mls/hr IV Q24HR [facility] Stop: 04/23/17 20:59 Last Infusion: 02/28/17 21:17 Dose: Infused Phenylephrine HCl 10 mg/ (Sodium Chloride) 250 mls @ 0 mls/hr IV TITR PATRIA; Per Protocol PRN Reason: Protocol Stop: 04/28/17 07:59 Norepinephrine Bitartrate 8 mg (/ Sodium Chloride) 258 mls @ 0 mls/hr IV TITR PATRIA; Per Protocol PRN Reason: Protocol Stop: 04/28/17 09:59 Last Titration: 03/01/17 06:31 Dose: 6 mcg/min, 11.61 mls/hr Meropenem 1 gm/ Dextrose 100 mls @ 100 mls/hr IV Q12H [facility] Stop: 04/28/17 12:29 Last Infusion: 03/01/17 13:00 Dose: Infused Potassium Chloride/Dextrose/Sod Cl (D5-0.9ns W/Kcl 20meq) 1,000 mls @ 75 mls/ hr IV .[id number] [facility] Stop: 04/30/17 14:41 Insulin Aspart (Novolog Insulin Sliding Scale) 0 units SUBQ ACHS PATRIA PRN Reason: Protocol Stop: 04/20/17 16:29 Last Admin: 03/01/17 12:01 Dose: 4 units Mirtazapine (Remeron) 15 mg PO HS [facility] PRN Reason: Protocol Stop: 04/26/17 20:59 Last Admin: 02/28/17 21:23 Dose: 15 mg Miscellaneous (Probiotic Screen) 1 ea MC PRN PRN PRN Reason: PROTOCOL Stop: 04/21/17 16:25 Morphine Sulfate (Morphine) 1 mg IVP Q3H PRN PRN Reason: Pain (Moderate) Stop: 04/20/17 01:59 Last Admin: 03/01/17 09:28 Dose: 1 mg Nitroglycerin (Nitrostat) 0.4 mg SL Q5MIN PRN PRN Reason: Chest Pain Stop: 04/20/17 12:01 Nystatin (Nystop) 100,000 units TP BID PRN PRN Reason: SKIN EXCORIATIONS Stop: 04/21/17 15:35 Last Admin: 02/21/17 11:46 Dose: 100,000 units Ondansetron HCl (Zofran) 4 mg IV Q6H PRN PRN Reason: Nausea Stop: 04/20/17 03:38 Spironolactone (Aldactone) 50 mg PO BID [facility] Stop: 04/27/17 08:59 Last Admin: 03/01/17 09:29 Dose: Not Given Na up to 132 Cr. down to 1.8 UOP improved to nam 2L CXR still w/ CHF, continue Lasix po DC spironolactone still on Levo 20 mcg f/u electorlytes, cbc, CXR start IVF D5NS @ 70 ml/hr w/ KCL add albumin initiate NaHC03 WBC down to 25.1 Nutritional Asmnt/Malnutr-PDOC - Dietary Evaluation Malnutrition Findings (Please click <Entered> for more info): Nutritional Asmnt/Malnutrition Start: 02/21/17 18: 20 Text: Status: Complete Freq: Document 02/21/17 18:21 LCANCELMOG (Rec: 02/21/17 18:32 LCELLEN ALEXANDER-[email or web address]) Nutritional Asmnt/Malnutrition Patient General Information Nutritional Screening High Risk Consult Diagnosis gastric outlet obstruction Pertinent Medical Hx/Surgical Hx HTN, OA, DM, GERD Subjective Information Pt seen sleeping at the time of visit, attempted x 2. Spoke with RN, pt consumed 50% of breakfast and only the soup of lunch today, not much appetite, no complain of N/V. Pt will be NPO from midnight for GI exam tommorrow. Current Diet Order/ Nutrition Support no added salt 4gm, CCHO, no eggs, banana and cereal in morning Pertinent Medications colace, lasix, novolog, levaquin, piperacillin Pertinent Labs 02/20 Na 137, K 4.5, Cl 104, BUN 55, Cr 1.6, Glucose 137, POC 126-199 since admit, Ca 8. 3 Nutritional Hx/Data Height 1.57 m Height (Calculated Centimeters) 157.5 Current Weight (lbs) 97.023 kg Weight (Calculated Kilograms) 97.0 Weight (Calculated Grams) 96348.4 [place] Body Weight 110 % [place] Body Weight 194 Body Mass Index (BMI) 39.1 Weight Status Obese GI Symptoms GI Symptoms None Last BM none Difficult in: None Skin Integrity/Comment: multiple maceration, abrasion to right/left medial thigh Current %PO Poor (25-49%) Estimated Nutritional Goals BEE in Kcals: Adj wt of IBW Calories/Kcals/Kg 27-32 Kcals Calculated Protein: Adj wt of IBW Protein g/k-1.2 Protein Calculated 62-74 Fluid: ml Nutritional Problem 1. Problem Problem inadequate PO intake Etiology poor appetite Signs/Symptoms: PO intake 25-50% Malnutrition Alert Protein-Calorie Malnutrition N/A Is there a minimum of two criteria No selected? Query Text:Check all the applicable criteria. A minimum of two criteria are recommended for diagnosis of either severe or non-severe malnutrition. Intervention/Recommendation Comments 1. Continue with current diet as ordered. 2. Monitor PO intake, GI symptons, wt, labs and skin integrity 3. F/U as high risk in 2-3 days, 02/23-02/24 Expected Outcomes/Goals Expected Outcomes/Goals 1. PO intake to meet at least 75% of nutritional needs. 2. Wt stability, skin to remain intact, labs to improve
[2017-03-06] MEDS: Metoclopramide 5 mg/mL 2mL Vial IVP SCH (17:53)
[2017-03-06] MEDS: Levofloxacin 250 mg/50 mL Premix Bag IV SCH (21:13)
[2017-03-07] MEDS: INSULIN ASPART SLIDING SCALE 100 UNITS/ML UNIT SUBQ SCH ×4 (00:03→18:21)
[2017-03-07] MEDS: Metoclopramide 5 mg/mL 2mL Vial IVP SCH ×5 (00:29→23:56)
[2017-03-07] MEDS: D5-0.9NS w/KCL 20mEq 1,000 ML IV SCH (01:41)
[2017-03-07] MEDS: Pantoprazole 80 MG in Sodium Chloride 0.9% 100 ML IV SCH ×2 (04:42→15:13)
[2017-03-07] MEDS: Albumin 25% 12.5gm/50mL 12.5 GM/50 ML BTL IV SCH ×3 (04:44→22:32)
[2017-03-07] MEDS: metroNIDAZOLE 500mg/NS 100mL 500 MG/100 ML BAG IV SCH ×3 (05:44→22:36)
[2017-03-07 07:03] LABS: BASOPHILE ABSOLUTE 0.1 Th/cumm (0-0.2); EOSINOPHILE ABSOLUTE 0.9 Th/cmm (0.1-0.4); HEMOGLOBIN 8.6 gm/dL (12-16); LYMPHOCYTE ABSOLUTE 1.4 Th/cmm (1.5-3.0); MEAN CELL VOLUME 86.7 fl (81-100); MEAN CORPUSCULAR HEMOGLOBIN 28.8 pg (27.0-31.0); MEAN CORPUSCULAR HGB CONC 33.3 pg (28.0-36.0); MEAN PLATELET VOLUME 8.7 fl; MONOCYTE ABSOLUTE 0.6 Th/cmm (0.3-1.0); RED CELL DISTRIBUTION WIDTH 13.2 % (11.5-20.0)
[2017-03-07] MEDS: Albuterol/Ipratropium Neb 3 ML AERS HHN SCH ×3 (07:09→19:15)
[2017-03-07 07:29] LABS: ANION GAP 11.1 (7.0-16.0); CARBON DIOXIDE 19.7 mEq/L (21.0-31.0); CREATININE - SERUM 1.8 mg/dL (0.6-1.2); GFR AFRICAN-AMERICAN 35.9 ml/min (>90); GFR NON AFRICAN-AMERICAN 29.7 ml/min; POTASSIUM SERUM 4.8 mEq/L (3.5-5.1)
[2017-03-07 07:33] LABS: PLATELET COUNT 30 Th/cmm (150-400)
[2017-03-07] MEDS ORDERED: Albuterol/Ipratropium Neb 3 ML AERS HHN ONE (07:48)
[2017-03-07] MEDS: Chlorhexidine Gluconate 0.12% 15mL Mouthwash MM SCH ×2 (08:30→20:30)
--- NOTE | 2017-03-07 08:47 | Diagnostic Imaging Report ---
Portable chest x-ray HISTORY: Shortness of breath Compared with prior exam generally 2017, the heart remains enlarged. There is increasing hazy bilateral infiltrates. Findings consistent with pulmonary edema related to congestive heart failure. An endotracheal tube tip is approximately 2.5 cm is above the abhishek. IMPRESSION: 1. Increasing hazy bilateral infiltrates along with cardiomegaly. The findings are consistent with increasing pulmonary edema associated with congestive heart failure. Clinical correlation is needed.
[2017-03-07] MEDS: Multivitamin w/ Minerals Tab PO SCH (09:12)
--- NOTE | 2017-03-07 11:17 | Infectious Disease Prog Note ---
Infectious Disease Subjective - Review of Systems Service Date: 03/07/17 Subjective: Remains on vent intubated orally. on the ventilator support. Infectious Disease Objective - Results Result Diagrams: 03/07/17 06:25 03/07/17 06:25 Recent Labs: Laboratory Last Values WBC 21.0 Th/cmm (4.8-10.8) H* 03/07/17 06:25 RBC 3.00 Mil/cmm (3.80-5.20) L 03/07/17 06:25 Hgb 8.6 gm/dL (12-16) L 03/07/17 06:25 Hct 26.0 % (41.0-60) L 03/07/17 06:25 MCV 86.7 fl (81-100) 03/07/17 06:25 MCH 28.8 pg (27.0-31.0) 03/07/17 06:25 MCHC Differential 33.3 pg (28.0-36.0) 03/07/17 06:25 RDW 13.2 % (11.5-20.0) 03/07/17 06:25 Plt Count 30 Th/cmm (150-400) L 03/07/17 06:25 MPV 8.7 fl 03/07/17 06:25 Neutrophils % DIETITIAN RESEARCH 02/25/17 04:50 Band Neutrophils % 5 % (0-10) 03/06/17 06:00 Lymphocytes % DIETITIAN RESEARCH 02/25/17 04:50 Monocytes % DIETITIAN RESEARCH 02/25/17 04:50 Eosinophils % DIETITIAN RESEARCH 02/25/17 04:50 Basophils % DIETITIAN RESEARCH 02/25/17 04:50 Neutrophils (Manual) 85 % (40-80) H 03/06/17 06:00 Lymphocytes 4 % (20-50) L 03/06/17 06:00 Monocytes 3 % (2-10) 03/06/17 06:00 Eosinophils 3 % (0-5) 03/06/17 06:00 Metamyelocytes 1 % (0-0) H 02/18/17 23:35 Hypochromia 1+ 02/18/17 23:35 Platelet Estimate DECREASED PLATELETS (NORMAL) 03/06/17 06:00 Platelet Morphology (NORMAL) 03/04/17 08:00 PT 13.9 SECONDS (9.5-11.5) H 03/01/17 09:15 INR 1.32 (0.5-1.4) 03/01/17 09:15 PTT (Actin FS) 53.1 SECONDS (26.0-38.0) H 03/01/17 09:15 Specimen Source Arterial 03/05/17 10:40 Sample Site Right Radial 03/05/17 10:40 pH 7.32 (7.35-7.45) L 03/05/17 10:40 pCO2 37.0 mmHg (35.0-45.0) 03/05/17 10:40 pO2 67.0 mmHg (80.0-100.0) L 03/05/17 10:40 HCO3 19.8 mEq/L (20.0-26.0) L 03/05/17 10:40 Base Excess -6.4 mEq/L (-3.0-3.0) L 03/05/17 10:40 O2 Saturation 91.0 % (92.0-100.0) L 03/05/17 10:40 Jorje Test PASS 03/05/17 10:40 Vent Rate 10 03/05/17 10:40 Inspired O2 30 03/05/17 10:40 Tidal Volume 550 03/05/17 10:40 PEEP 5 03/05/17 10:40 Pressure (ins/psv/peep) 10 03/05/17 10:40 Critical Value PW 03/05/17 10:40 Sodium 131 mEq/L (136-145) L 03/07/17 06:25 Potassium 4.8 mEq/L (3.5-5.1) 03/07/17 06:25 Chloride 105 mEq/L (98-107) 03/07/17 06:25 Carbon Dioxide 19.7 mEq/L (21.0-31.0) L 03/07/17 06:25 Anion Gap 11.1 (7.0-16.0) 03/07/17 06:25 BUN 48 mg/dL (7-25) H 03/07/17 06:25 Creatinine 1.8 mg/dL (0.6-1.2) H 03/07/17 06:25 Est GFR ( Amer) 35.9 ml/min (>90) 03/07/17 06:25 Est GFR (Non-Af Amer) 29.7 ml/min 03/07/17 06:25 BUN/Creatinine Ratio 26.7 03/07/17 06:25 Glucose 141 mg/dL (70-105) H 03/07/17 06:25 POC Glucose 135 MG/DL (70 - 105) H 03/07/17 05:26 Hemoglobin A1c % 5.8 % (4.0-6.0) 02/22/17 10:38 Whole Bld Lactic Acid 2.40 mmol/L (0.60-1.99) H* 02/27/17 15:04 Calcium 8.0 mg/dL (8.6-10.3) L 03/07/17 06:25 Phosphorus 2.5 mg/dL (2.5-5.0) 03/01/17 09:15 Magnesium 2.1 mg/dL (1.9-2.7) 03/01/17 09:15 Total Bilirubin 0.6 mg/dL (0.3-1.0) 03/01/17 09:15 Direct Bilirubin 0.09 mg/dL (0.0-0.2) 02/18/17 23:35 AST 20 U/L (13-39) 03/01/17 09:15 ALT 6 U/L (7-52) L 03/01/17 09:15 Alkaline Phosphatase 56 U/L (34-104) 03/01/17 09:15 Ammonia 38 umol/L (16-53) 03/01/17 17:28 B-Natriuretic Peptide 158.0 pg/mL (5.0-100.0) H 03/04/17 15:39 Total Protein 4.8 gm/dL (6.0-8.3) L 03/01/17 09:15 Albumin 3.1 gm/dL (3.7-5.3) L 03/01/17 09:15 Globulin 1.7 gm/dL 03/01/17 09:15 Albumin/Globulin Ratio 1.8 (1.0-1.8) 03/01/17 09:15 Amylase 36 U/L (29-103) 02/18/17 23:35 Lipase 10 U/L (11-82) L 02/18/17 23:35 Vitamin B12 860 pg/mL (232-1245) 02/26/17 04:45 Free T4 1.04 ng/dL (0.82-1.77) 02/25/17 04:50 Free T3 0.7 pg/mL (2.0-4.4) L 02/25/17 04:50 TSH 0.84 uIU/ml (0.34-5.60) 02/25/17 04:50 Urine Source [place] 02/27/17 15:00 Urine Color YELLOW 02/27/17 15:00 Urine Clarity CLOUDY (CLEAR) H 02/27/17 15:00 Urine pH 5.5 (4.6 - 8.0) 02/27/17 15:00 Ur Specific [place] <= 1.005 (1.005-1.030) 02/27/17 15:00 Urine Protein TRACE mg/dL (NEGATIVE) 02/27/17 15:00 Urine Glucose (UA) NEGATIVE mg/dL (NEGATIVE) 02/27/17 15:00 Urine Ketones NEGATIVE mg/dL (NEGATIVE) 02/27/17 15:00 Urine Blood LARGE (NEGATIVE) H 02/27/17 15:00 Urine Nitrate NEGATIVE (NEGATIVE) 02/27/17 15:00 Urine Bilirubin NEGATIVE (NEGATIVE) 02/27/17 15:00 Urine Urobilinogen 0.2 E.U./dL (0.2 - 1.0) 02/27/17 15:00 Ur Leukocyte Esterase LARGE (NEGATIVE) H 02/27/17 15:00 Urine RBC 10-25 /hpf (0-5) H 02/27/17 15:00 Urine WBC >100 /hpf (0-5) H 02/27/17 15:00 Ur Epithelial Cells MODERATE /lpf (FEW) 02/27/17 15:00 Urine Bacteria MODERATE /hpf (NONE SEEN) H 02/27/17 15:00 Urine Yeast MODERATE /hpf (NONE SEEN) H 02/20/17 16:15 Blood Type A POSITIVE 02/27/17 15:04 Antibody Screen NEGATIVE 02/27/17 15:04 Crossmatch See Detail 02/27/17 15:04 - Physical Exam Vitals and I&O: Vital Signs Temp 97.8 F 03/07/17 04:00 Pulse 96 03/07/17 07:09 Resp 19 03/07/17 06:00 BP 107/47 03/07/17 09:12 Pulse Ox 100 03/07/17 07:09 Intake & Output 03/06/17 03/07/1718 18:59 06:59 18:59 Intake Total 399.304 5426.597 Output Total 250 Balance 934.578 1546.597 Weight (lbs) 119.295 kg Intake: Intake, IV Amount 962.815 7860.597 Albumin 25% 12.5gm/50mL 50 100 12.5 gm In 50 ml @ 50 mls /hr IV Q8HR [facility] Rx#: [id number] D5-0.9NS w/KCL 20mEq 1, 1323.75 000 ml @ 75 mls/hr IV . [id number] [facility] Rx#:[id number] Levofloxacin 250mg/50mL 50 250 mg In 50 ml @ 50 mls/ hr IV Q24HR [facility] Rx#: [id number] Meropenem 1 gm In 100 100 Dextrose 5% 100 ml @ 100 mls/hr IV Q12H [facility] Rx#: [id number] Norepinephrine 8 mg In 369.585 224.847 Sodium Chloride 0.9% 250 ml @ Per Protocol IV TITR [facility] Rx#:[id number] Pantoprazole 80 mg In 191 100 Sodium Chloride 0.9% 100 ml @ 10 mls/hr IV Q10H [facility] Rx#:[id number] metroNIDAZOLE 500mg/NS 100 200 100mL 500 mg In 100 ml @ 100 mls/hr IV Q8HR [facility] Rx #:[id number] Output: Urine 250 Other: Stool Characteristics Soft Soft Active Medications: Current Medications Acetaminophen (Tylenol) 650 mg PO Q4HR PRN PRN Reason: Pain (Mild) Stop: 04/20/17 12:01 Last Admin: 03/06/17 03:23 Dose: 650 mg Albuterol/Ipratropium (Duoneb Neb) 3 ml HHN Q4HRT PRN PRN Reason: Wheezing Stop: 04/27/17 19:59 Last Admin: 02/28/17 03:18 Dose: 3 ml Albuterol/Ipratropium (Duoneb Neb) 3 ml HHN [id number] [facility] Stop: 04/27/17 19:59 Last Admin: 03/07/17 07:09 Dose: 3 ml Aspirin (Ecotrin) 81 mg PO DAILY [facility] Stop: 04/21/17 08:59 Last Admin: 03/07/17 09:12 Dose: 81 mg Chlorhexidine Gluconate (Peridex) 15 ml MM 0800,1999 [facility] Stop: 04/28/17 19:59 Last Admin: 03/07/17 08:30 Dose: 15 ml Diltiazem HCl (Cardizem) 5 mg IVP Q4H PRN PRN Reason: HR > 120 Stop: 04/27/17 19:59 Last Admin: 02/27/17 04:59 Dose: 5 mg Docusate Sodium (Colace) 100 mg PO BID [facility] Stop: 04/20/17 16:59 Last Admin: 03/07/17 09:11 Dose: 100 mg Furosemide (Lasix) 40 mg PO DAILY [facility] Stop: 04/21/17 08:59 Last Admin: 03/07/17 09:12 Dose: 40 mg Pantoprazole Sodium 80 mg/ (Sodium Chloride) 100 mls @ 10 mls/hr IV Q10H [facility] Stop: 04/20/17 08:59 Last Admin: 03/07/17 04:42 Dose: 10 mls/hr Levofloxacin (Levaquin Pb) 250 mg in 50 mls @ 50 mls/hr IV Q24HR [facility] Stop: 04/23/17 20:59 Last Infusion: 03/06/17 22:13 Dose: Infused Phenylephrine HCl 10 mg/ (Sodium Chloride) 250 mls @ 0 mls/hr IV TITR [facility]; Per Protocol PRN Reason: Protocol Stop: 04/28/17 07:59 Norepinephrine Bitartrate 8 mg (/ Sodium Chloride) 258 mls @ 0 mls/hr IV TITR [facility]; Per Protocol PRN Reason: Protocol Stop: 04/28/17 09:59 Last Titration: 03/07/17 01:45 Dose: 10 mcg/min, 19.35 mls/hr Meropenem 1 gm/ Dextrose 100 mls @ 100 mls/hr IV Q12H [facility] Stop: 04/28/17 12:29 Last Infusion: 03/07/17 01:04 Dose: Infused Potassium Chloride/Dextrose/Sod Cl (D5-0.9ns W/Kcl 20meq) 1,000 mls @ 75 mls/ hr IV .[id number] [facility] Stop: 04/30/17 14:41 Last Infusion: 03/07/17 06:00 Dose: 75 mls/hr Metronidazole (Flagyl) 500 mg in 100 mls @ 100 mls/hr IV Q8HR [facility] Stop: 05/04/17 20:59 Last Infusion: 03/07/17 06:44 Dose: Infused Albumin Human (Albutein 25%) 12.5 gm in 50 mls @ 50 mls/hr IV Q8HR [facility] Stop: 03/08/17 13:59 Last Infusion: 03/07/17 05:44 Dose: Infused Insulin Aspart (Novolog Insulin Sliding Scale) 0 units SUBQ Q6H [facility] PRN Reason: Protocol Stop: 05/03/17 00:00 Last Admin: 03/07/17 05:44 Dose: Not Given Metoclopramide HCl (Reglan) 5 mg IVP Q6HR [facility] Stop: 05/05/17 17:59 Last Admin: 03/07/17 05:44 Dose: 5 mg Mirtazapine (Remeron) 15 mg PO HS [facility] PRN Reason: Protocol Stop: 04/26/17 20:59 Last Admin: 03/06/17 21:14 Dose: 15 mg Miscellaneous (Probiotic Screen) 1 ea MC PRN PRN PRN Reason: PROTOCOL Stop: 04/21/17 16:25 Morphine Sulfate (Morphine) 1 mg IVP Q4HR PRN PRN Reason: Severe Pain Stop: 05/04/17 14:13 Last Admin: 03/06/17 12:02 Dose: 1 mg Nitroglycerin (Nitrostat) 0.4 mg SL Q5MIN PRN PRN Reason: Chest Pain Stop: 04/20/17 12:01 Nystatin (Nystop) 100,000 units TP BID PRN PRN Reason: SKIN EXCORIATIONS Stop: 04/21/17 15:35 Last Admin: 03/06/17 06:37 Dose: 100,000 units Ondansetron HCl (Zofran) 4 mg IV Q6H PRN PRN Reason: Nausea Stop: 04/20/17 03:38 General: no acute distress, well developed, well nourished HEENT: atraumatic, normocephalic Neck: supple, no thyromegaly Cardiovascular: S1S2, regular Lungs: clear to auscultation bilaterally, clear to percussion Abdomen: soft, no tender, no distended, no mass Extremities: no cyanosis, no clubbing, no edema Neurological: awake, alert, oriented Skin: intact - Procedures Procedures: Procedures Procedure Code Date INSERT EMERGENCY AIRWAY 32686 02/19/17 INSERTION OF ENDOTRACHEAL AIRWAY INTO [place], VIA OPENING [id number] 02/19/17 RESPIRATORY VENTILATION, GREATER THAN 96 CONSECUTIVE HOURS [id number] 02/19/17 VENT MGMT INPAT INIT DAY 02/19/17 VENT MGMT INPAT SUBQ DAY 02/19/17 Infectious Disease Assmt/Plan - Problem List Patient Problems: All Active Problems Acute kidney failure (Acute) 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 Sepsis. 2. Pneumonia. 3. UTI, Candiduria. 4. Renal failure. 5. Hypotension, improving 6. VDRF. - Plan Plan: continue meropenem. Continue flagyl. Nutritional Asmnt/Malnutr-PDOC - Dietary Evaluation Malnutrition Findings (Please click <Entered> for more info): Nutritional Asmnt/Malnutrition Start: 02/21/17 18: 20 Text: Status: Complete Freq: Document 02/21/17 18:21 OSKAR (Rec: 02/21/17 18:32 [email or web address] Nutritional Asmnt/Malnutrition Patient General Information Nutritional Screening High Risk Consult Diagnosis gastric outlet obstruction Pertinent Medical Hx/Surgical Hx HTN, OA, DM, GERD Subjective Information Pt seen sleeping at the time of visit, attempted x 2. Spoke with RN, pt consumed 50% of breakfast and only the soup of lunch today, not much appetite, no complain of N/V. Pt will be NPO from midnight for GI exam tommorrow. Current Diet Order/ Nutrition Support no added salt 4gm, CCHO, no eggs, banana and cereal in morning Pertinent Medications colace, lasix, novolog, levaquin, piperacillin Pertinent Labs 12/24 Na 137, K 4.5, Cl 104, BUN 55, Cr 1.6, Glucose 137, POC 126-199 since admit, Ca 8. 3 Nutritional Hx/Data Height 1.57 m Height (Calculated Centimeters) 157.5 Current Weight (lbs) 97.023 kg Weight (Calculated Kilograms) 97.0 Weight (Calculated Grams) 15917.4 [place] Body Weight 110 % [place] Body Weight 194 Body Mass Index (BMI) 39.1 Weight Status Obese GI Symptoms GI Symptoms None Last BM none Difficult in: None Skin Integrity/Comment: multiple maceration, abrasion to right/left medial thigh Current %PO Poor (25-49%) Estimated Nutritional Goals BEE in Kcals: Adj wt of IBW Calories/Kcals/Kg 27-32 Kcals Calculated Protein: Adj wt of IBW Protein g/k-1.2 Protein Calculated 62-74 Fluid: ml Nutritional Problem 1. Problem Problem inadequate PO intake Etiology poor appetite Signs/Symptoms: PO intake 25-50% Malnutrition Alert Protein-Calorie Malnutrition N/A Is there a minimum of two criteria No selected? Query Text:Check all the applicable criteria. A minimum of two criteria are recommended for diagnosis of either severe or non-severe malnutrition. Intervention/Recommendation Comments 1. Continue with current diet as ordered. 2. Monitor PO intake, GI symptons, wt, labs and skin integrity 3. F/U as high risk in 2-3 days, 02/23-02/24 Expected Outcomes/Goals Expected Outcomes/Goals 1. PO intake to meet at least 75% of nutritional needs. 2. Wt stability, skin to remain intact, labs to improve
--- NOTE | 2017-03-07 11:34 | Internal Medicine Prog Note ---
Internal Medicine Subjective - Subjective Service Date: 03/07/17 (remains orally intubatedo n vent) Patient is:: awake Per staff patient has:: tolerating meds Internal Medicine Objective - Results Result Diagrams: 03/07/17 06:25 03/07/17 06:25 Recent Labs: Laboratory Last Values WBC 21.0 Th/cmm (4.8-10.8) H* 03/07/17 06:25 RBC 3.00 Mil/cmm (3.80-5.20) L 03/07/17 06:25 Hgb 8.6 gm/dL (12-16) L 03/07/17 06:25 Hct 26.0 % (41.0-60) L 03/07/17 06:25 MCV 86.7 fl (81-100) 03/07/17 06:25 MCH 28.8 pg (27.0-31.0) 03/07/17 06:25 MCHC Differential 33.3 pg (28.0-36.0) 03/07/17 06:25 RDW 13.2 % (11.5-20.0) 03/07/17 06:25 Plt Count 30 Th/cmm (150-400) L 03/07/17 06:25 MPV 8.7 fl 03/07/17 06:25 Neutrophils % [employer] 02/25/17 04:50 Band Neutrophils % 5 % (0-10) 03/06/17 06:00 Lymphocytes % [employer] 02/25/17 04:50 Monocytes % [employer] 02/25/17 04:50 Eosinophils % [employer] 02/25/17 04:50 Basophils % [employer] 02/25/17 04:50 Neutrophils (Manual) 85 % (40-80) H 03/06/17 06:00 Lymphocytes 4 % (20-50) L 03/06/17 06:00 Monocytes 3 % (2-10) 03/06/17 06:00 Eosinophils 3 % (0-5) 03/06/17 06:00 Metamyelocytes 1 % (0-0) H 02/18/17 23:35 Hypochromia 1+ 02/18/17 23:35 Platelet Estimate DECREASED PLATELETS (NORMAL) 03/06/17 06:00 Platelet Morphology (NORMAL) 03/04/17 08:00 PT 13.9 SECONDS (9.5-11.5) H 03/01/17 09:15 INR 1.32 (0.5-1.4) 03/01/17 09:15 PTT (Actin FS) 53.1 SECONDS (26.0-38.0) H 03/01/17 09:15 Specimen Source Arterial 03/05/17 10:40 Sample Site Right Radial 03/05/17 10:40 pH 7.32 (7.35-7.45) L 03/05/17 10:40 pCO2 37.0 mmHg (35.0-45.0) 03/05/17 10:40 pO2 67.0 mmHg (80.0-100.0) L 03/05/17 10:40 HCO3 19.8 mEq/L (20.0-26.0) L 03/05/17 10:40 Base Excess -6.4 mEq/L (-3.0-3.0) L 03/05/17 10:40 O2 Saturation 91.0 % (92.0-100.0) L 03/05/17 10:40 Jorje Test PASS 03/05/17 10:40 Vent Rate 10 03/05/17 10:40 Inspired O2 30 03/05/17 10:40 Tidal Volume 550 03/05/17 10:40 PEEP 5 03/05/17 10:40 Pressure (ins/psv/peep) 10 03/05/17 10:40 Critical Value PW 03/05/17 10:40 Sodium 131 mEq/L (136-145) L 03/07/17 06:25 Potassium 4.8 mEq/L (3.5-5.1) 03/07/17 06:25 Chloride 105 mEq/L (98-107) 03/07/17 06:25 Carbon Dioxide 19.7 mEq/L (21.0-31.0) L 03/07/17 06:25 Anion Gap 11.1 (7.0-16.0) 03/07/17 06:25 BUN 48 mg/dL (7-25) H 03/07/17 06:25 Creatinine 1.8 mg/dL (0.6-1.2) H 03/07/17 06:25 Est GFR ( Amer) 35.9 ml/min (>90) 03/07/17 06:25 Est GFR (Non-Af Amer) 29.7 ml/min 03/07/17 06:25 BUN/Creatinine Ratio 26.7 03/07/17 06:25 Glucose 141 mg/dL (70-105) H 03/07/17 06:25 POC Glucose 135 MG/DL (70 - 105) H 03/07/17 05:26 Hemoglobin A1c % 5.8 % (4.0-6.0) 02/22/17 10:38 Whole Bld Lactic Acid 2.40 mmol/L (0.60-1.99) H* 02/27/17 15:04 Calcium 8.0 mg/dL (8.6-10.3) L 03/07/17 06:25 Phosphorus 2.5 mg/dL (2.5-5.0) 03/01/17 09:15 Magnesium 2.1 mg/dL (1.9-2.7) 03/01/17 09:15 Total Bilirubin 0.6 mg/dL (0.3-1.0) 03/01/17 09:15 Direct Bilirubin 0.09 mg/dL (0.0-0.2) 02/18/17 23:35 AST 20 U/L (13-39) 03/01/17 09:15 ALT 6 U/L (7-52) L 03/01/17 09:15 Alkaline Phosphatase 56 U/L (34-104) 03/01/17 09:15 Ammonia 38 umol/L (16-53) 03/01/17 17:28 B-Natriuretic Peptide 158.0 pg/mL (5.0-100.0) H 03/04/17 15:39 Total Protein 4.8 gm/dL (6.0-8.3) L 03/01/17 09:15 Albumin 3.1 gm/dL (3.7-5.3) L 03/01/17 09:15 Globulin 1.7 gm/dL 03/01/17 09:15 Albumin/Globulin Ratio 1.8 (1.0-1.8) 03/01/17 09:15 Amylase 36 U/L (29-103) 02/18/17 23:35 Lipase 10 U/L (11-82) L 02/18/17 23:35 Vitamin B12 860 pg/mL (232-1245) 02/26/17 04:45 Free T4 1.04 ng/dL (0.82-1.77) 02/25/17 04:50 Free T3 0.7 pg/mL (2.0-4.4) L 02/25/17 04:50 TSH 0.84 uIU/ml (0.34-5.60) 02/25/17 04:50 Urine Source [place] 02/27/17 15:00 Urine Color YELLOW 02/27/17 15:00 Urine Clarity CLOUDY (CLEAR) H 02/27/17 15:00 Urine pH 5.5 (4.6 - 8.0) 02/27/17 15:00 Ur Specific [place] <= 1.005 (1.005-1.030) 02/27/17 15:00 Urine Protein TRACE mg/dL (NEGATIVE) 02/27/17 15:00 Urine Glucose (UA) NEGATIVE mg/dL (NEGATIVE) 02/27/17 15:00 Urine Ketones NEGATIVE mg/dL (NEGATIVE) 02/27/17 15:00 Urine Blood LARGE (NEGATIVE) H 02/27/17 15:00 Urine Nitrate NEGATIVE (NEGATIVE) 02/27/17 15:00 Urine Bilirubin NEGATIVE (NEGATIVE) 02/27/17 15:00 Urine Urobilinogen 0.2 E.U./dL (0.2 - 1.0) 02/27/17 15:00 Ur Leukocyte Esterase LARGE (NEGATIVE) H 02/27/17 15:00 Urine RBC 10-25 /hpf (0-5) H 02/27/17 15:00 Urine WBC >100 /hpf (0-5) H 02/27/17 15:00 Ur Epithelial Cells MODERATE /lpf (FEW) 02/27/17 15:00 Urine Bacteria MODERATE /hpf (NONE SEEN) H 02/27/17 15:00 Urine Yeast MODERATE /hpf (NONE SEEN) H 02/20/17 16:15 Blood Type A POSITIVE 02/27/17 15:04 Antibody Screen NEGATIVE 02/27/17 15:04 Crossmatch See Detail 02/27/17 15:04 - Physical Exam Vitals and I&O: Vital Signs Temp 97.8 F 03/07/17 04:00 Pulse 92 03/07/17 11:23 Resp 19 03/07/17 06:00 BP 107/47 03/07/17 09:12 Pulse Ox 100 03/07/17 11:23 Intake & Output 03/06/17 03/07/17 03/07/17 18:59 06:59 18:59 Intake Total 801.691 9285.597 Output Total 250 Balance 933.158 4166.597 Weight (lbs) 263 lb Intake: Intake, IV Amount 931.741 4388.597 Albumin 25% 12.5gm/50mL 50 100 12.5 gm In 50 ml @ 50 mls /hr IV Q8HR [facility] Rx#: [id number] D5-0.9NS w/KCL 20mEq 1, 1323.75 000 ml @ 75 mls/hr IV . [id number] [facility] Rx#:[id number] Levofloxacin 250mg/50mL 50 250 mg In 50 ml @ 50 mls/ hr IV Q24HR [facility] Rx#: [id number] Meropenem 1 gm In 100 100 Dextrose 5% 100 ml @ 100 mls/hr IV Q12H [facility] Rx#: [id number] Norepinephrine 8 mg In 369.585 224.847 Sodium Chloride 0.9% 250 ml @ Per Protocol IV TITR PATRIA Rx#:[id number] Pantoprazole 80 mg In 191 100 Sodium Chloride 0.9% 100 ml @ 10 mls/hr IV Q10H [facility] Rx#:[id number] metroNIDAZOLE 500mg/NS 100 200 100mL 500 mg In 100 ml @ 100 mls/hr IV Q8HR [facility] Rx #:[id number] Output: Urine 250 Other: Stool Characteristics Soft Soft Active Medications: Current Medications Acetaminophen (Tylenol) 650 mg PO Q4HR PRN PRN Reason: Pain (Mild) Stop: 04/20/17 12:01 Last Admin: 03/06/17 03:23 Dose: 650 mg Albuterol/Ipratropium (Duoneb Neb) 3 ml HHN Q4HRT PRN PRN Reason: Wheezing Stop: 04/27/17 19:59 Last Admin: 02/28/17 03:18 Dose: 3 ml Albuterol/Ipratropium (Duoneb Neb) 3 ml HHN K2VANEL [facility] Stop: 04/27/17 19:59 Last Admin: 03/07/17 07:09 Dose: 3 ml Aspirin (Ecotrin) 81 mg PO DAILY [facility] Stop: 04/21/17 08:59 Last Admin: 03/07/17 09:12 Dose: 81 mg Chlorhexidine Gluconate (Peridex) 15 ml MM 799,1999 [facility] Stop: 04/28/17 19:59 Last Admin: 03/07/17 08:30 Dose: 15 ml Diltiazem HCl (Cardizem) 5 mg IVP Q4H PRN PRN Reason: HR > 120 Stop: 04/27/17 19:59 Last Admin: 02/27/17 04:59 Dose: 5 mg Docusate Sodium (Colace) 100 mg PO BID [facility] Stop: 04/20/17 16:59 Last Admin: 03/07/17 09:11 Dose: 100 mg Furosemide (Lasix) 40 mg PO DAILY [facility] Stop: 04/21/17 08:59 Last Admin: 03/07/17 09:12 Dose: 40 mg Pantoprazole Sodium 80 mg/ (Sodium Chloride) 100 mls @ 10 mls/hr IV Q10H [facility] Stop: 04/20/17 08:59 Last Admin: 03/07/17 04:42 Dose: 10 mls/hr Levofloxacin (Levaquin Pb) 250 mg in 50 mls @ 50 mls/hr IV Q24HR [facility] Stop: 04/23/17 20:59 Last Infusion: 03/06/17 22:13 Dose: Infused Phenylephrine HCl 10 mg/ (Sodium Chloride) 250 mls @ 0 mls/hr IV TITR PATRIA; Per Protocol PRN Reason: Protocol Stop: 04/28/17 07:59 Norepinephrine Bitartrate 8 mg (/ Sodium Chloride) 258 mls @ 0 mls/hr IV TITR PATRIA; Per Protocol PRN Reason: Protocol Stop: 04/28/17 09:59 Last Titration: 03/07/17 01:45 Dose: 10 mcg/min, 19.35 mls/hr Meropenem 1 gm/ Dextrose 100 mls @ 100 mls/hr IV Q12H [facility] Stop: 04/28/17 12:29 Last Infusion: 03/07/17 01:04 Dose: Infused Potassium Chloride/Dextrose/Sod Cl (D5-0.9ns W/Kcl 20meq) 1,000 mls @ 75 mls/ hr IV .[id number] [facility] Stop: 04/30/17 14:41 Last Infusion: 03/07/17 06:00 Dose: 75 mls/hr Metronidazole (Flagyl) 500 mg in 100 mls @ 100 mls/hr IV Q8HR [facility] Stop: 05/04/17 20:59 Last Infusion: 03/07/17 06:44 Dose: Infused Albumin Human (Albutein 25%) 12.5 gm in 50 mls @ 50 mls/hr IV Q8HR [facility] Stop: 03/08/17 13:59 Last Infusion: 03/07/17 05:44 Dose: Infused Insulin Aspart (Novolog Insulin Sliding Scale) 0 units SUBQ Q6H [facility] PRN Reason: Protocol Stop: 05/03/17 00:00 Last Admin: 03/07/17 05:44 Dose: Not Given Metoclopramide HCl (Reglan) 5 mg IVP Q6HR [facility] Stop: 05/05/17 17:59 Last Admin: 03/07/17 05:44 Dose: 5 mg Mirtazapine (Remeron) 15 mg PO HS PATRIA PRN Reason: Protocol Stop: 04/26/17 20:59 Last Admin: 03/06/17 21:14 Dose: 15 mg Miscellaneous (Probiotic Screen) 1 ea MC PRN PRN PRN Reason: PROTOCOL Stop: 04/21/17 16:25 Morphine Sulfate (Morphine) 1 mg IVP Q4HR PRN PRN Reason: Severe Pain Stop: 05/04/17 14:13 Last Admin: 03/06/17 12:02 Dose: 1 mg Nitroglycerin (Nitrostat) 0.4 mg SL Q5MIN PRN PRN Reason: Chest Pain Stop: 04/20/17 12:01 Nystatin (Nystop) 100,000 units TP BID PRN PRN Reason: SKIN EXCORIATIONS Stop: 04/21/17 15:35 Last Admin: 03/06/17 06:37 Dose: 100,000 units Ondansetron HCl (Zofran) 4 mg IV Q6H PRN PRN Reason: Nausea Stop: 04/20/17 03:38 General: weak, alert HEENT: NC/AT, PERRLA Neck: Supple Lungs: ronchi Abdomen: soft, non-tender, non-distended Extremities: excoriation Neurological: no change - Procedures Procedures: Procedures Procedure Code Date INSERT EMERGENCY AIRWAY 46925 02/19/17 INSERTION OF ENDOTRACHEAL AIRWAY INTO [place]HEA, VIA OPENING [id number] 02/19/17 RESPIRATORY VENTILATION, GREATER THAN 96 CONSECUTIVE HOURS [id number] 02/19/17 VENT MGMT INPAT INIT DAY 02/19/17 VENT MGMT INPAT SUBQ DAY 02/19/17 Internal Medicine Assmt/Plan - Assessment Assessment: Acute kidney failure (Acute) 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 Azotemia (Acute) R79.89 Bradycardia (Acute) R00.1 COPD (chronic obstructive pulmonary disease) (Acute) Cardiomegaly (Acute) I51.7 Chest pain (Acute) R07.9 Decubitus ulcer of buttock, 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 Acute respiratory failure - Plan Plan: continue vent support monitor glucose continue ivabx as per id follow up labs in am continue current orders Nutritional Asmnt/Malnutr-PDOC - Dietary Evaluation Malnutrition Findings (Please click <Entered> for more info): Nutritional Asmnt/Malnutrition Start: 02/21/17 18: 20 Text: Status: Complete Freq: Document 02/21/17 18:21 LCHENG (Rec: 02/21/17 18:32 [email or web address]) Nutritional Asmnt/Malnutrition Patient General Information Nutritional Screening High Risk Consult Diagnosis gastric outlet obstruction Pertinent Medical Hx/Surgical Hx HTN, OA, DM, GERD Subjective Information Pt seen sleeping at the time of visit, attempted x 2. Spoke with RN, pt consumed 50% of breakfast and only the soup of lunch today, not much appetite, no complain of N/V. Pt will be NPO from midnight for GI exam tommorrow. Current Diet Order/ Nutrition Support no added salt 4gm, CCHO, no eggs, banana and cereal in morning Pertinent Medications colace, lasix, novolog, levaquin, piperacillin Pertinent Labs 02/20 Na 137, K 4.5, Cl 104, BUN 55, Cr 1.6, Glucose 137, POC 126-199 since admit, Ca 8. 3 Nutritional Hx/Data Height 5 ft 2 in Height (Calculated Centimeters) 157.5 Current Weight (lbs) 213 lb 14.4 oz Weight (Calculated Kilograms) 97.0 Weight (Calculated Grams) 93139.4 Cisco Body Weight 110 % Cisco Body Weight 194 Body Mass Index (BMI) 39.1 Weight Status Obese GI Symptoms GI Symptoms None Last BM none Difficult in: None Skin Integrity/Comment: multiple maceration, abrasion to right/left medial thigh Current %PO Poor (25-49%) Estimated Nutritional Goals BEE in Kcals: Adj wt of IBW Calories/Kcals/Kg 27-32 Kcals Calculated Protein: Adj wt of IBW Protein g/k-1.2 Protein Calculated 62-74 Fluid: ml Nutritional Problem 1. Problem Problem inadequate PO intake Etiology poor appetite Signs/Symptoms: PO intake 25-50% Malnutrition Alert Protein-Calorie Malnutrition N/A Is there a minimum of two criteria No selected? Query Text:Check all the applicable criteria. A minimum of two criteria are recommended for diagnosis of either severe or non-severe malnutrition. Intervention/Recommendation Comments 1. Continue with current diet as ordered. 2. Monitor PO intake, GI symptons, wt, labs and skin integrity 3. F/U as high risk in 2-3 days, 02/23-02/24 Expected Outcomes/Goals Expected Outcomes/Goals 1. PO intake to meet at least 75% of nutritional needs. 2. Wt stability, skin to remain intact, labs to improve
[2017-03-07 11:38] LABS: pH 7.26 (7.35-7.45)
[2017-03-07 11:39] LABS: ALLEN TEST Y
[2017-03-07] MEDS ORDERED: Sodium Bicarbonate 8.4% 50mEq PFS IVP ONE (14:01)
[2017-03-07] MEDS: D5-0.9%NS 1,000 ML IV SCH (17:30)
--- NOTE | 2017-03-07 21:44 | Progress Notes ---
DATE: LOCATION: Room ICU bed #10. SUBJECTIVE: The patient has become oliguric. The patient's potassium is trending upward. On a respirator, seems to be lethargic. King catheter has cloudy urine. The patient is on a Levophed. Tube feeding in progress. OBJECTIVE: VITAL SIGNS: Pulse 87 and blood pressure 95/37. Intake and output; yesterday intake 4763 and output 4113. HEART: Regular. LUNGS: Rhonchi on both the bases with rales. ABDOMEN: Soft. EXTREMITY: Edema. LABORATORY DATA: WBC 21,000, hemoglobin 8.6, and platelet 30,000. Sodium 131, potassium 4.8, chloride 105, CO2 19, BUN 48, creatinine 1.8, sugar 138, and calcium 8.0. ASSESSMENT: 1. Acute kidney injury. 2. Oliguria. 3. Hypotension. 4. Chronic obstructive pulmonary disease. 5. Respiratory failure. 6. Decubiti ulcer. 7. Diabetes mellitus. 8. History of pacemaker insertion. 9. Rheumatoid arthritis. PLAN: 1. Discontinue potassium in IV. 2. Change IV fluid to D5 half NS at 70 mL per hour. 3. Discontinue Lasix NG tube. 4. Start Lasix 40 mg IV now and every morning. 5. Increase Levophed for hypotension if necessary. 6. CMP, CBC, phosphorus in the morning. 7. Check urinalysis in the morning. 8. Discussed with nursing staff at length. JOB# [id number]
[2017-03-08] MEDS: Pantoprazole 80 MG in Sodium Chloride 0.9% 100 ML IV SCH ×3 (00:01→21:29)
[2017-03-08] MEDS: INSULIN ASPART SLIDING SCALE 100 UNITS/ML UNIT SUBQ SCH ×4 (00:10→18:10)
[2017-03-08] MEDS: Albumin 25% 12.5gm/50mL 12.5 GM/50 ML BTL IV SCH ×2 (05:31→12:41)
[2017-03-08] MEDS: metroNIDAZOLE 500mg/NS 100mL 500 MG/100 ML BAG IV SCH ×3 (05:32→20:36)
[2017-03-08] MEDS: Metoclopramide 5 mg/mL 2mL Vial IVP SCH ×4 (05:33→23:44)
[2017-03-08 06:00] LABS: % BASOPHILS 0.8 % (0.0-2.0); % EOSINOPHILS 4.5 % (0.0-5.0); % LYMPHOCYTES 8.1 % (20.0-50.0); % MONOCYTES 3.4 % (2.0-10.0); % NEUTROPHILS 83.2 % (40.0-80.0); BASOPHILE ABSOLUTE 0.2 Th/cumm (0-0.2); EOSINOPHILE ABSOLUTE 0.9 Th/cmm (0.1-0.4); HEMATOCRIT 25.5 % (41.0-60); HEMOGLOBIN 8.2 gm/dL (12-16); LYMPHOCYTE ABSOLUTE 1.6 Th/cmm (1.5-3.0); MEAN CORPUSCULAR HGB CONC 32.2 pg (28.0-36.0); MEAN PLATELET VOLUME 8.9 fl; MONOCYTE ABSOLUTE 0.7 Th/cmm (0.3-1.0); NEUTROPHILE ABSOLUTE 16.1 Th/cmm (1.8-8.0); PLATELET COUNT 31 Th/cmm (150-400); RED BLOOD COUNT 2.93 Mil/cmm (3.80-5.20); RED CELL DISTRIBUTION WIDTH 13.8 % (11.5-20.0)
[2017-03-08] MEDS: NYSTATIN 100000 UNITS/GM POWD TP PRN (06:00)
[2017-03-08 06:02] LABS: WHITE BLOOD COUNT 19.5 Th/cmm (4.8-10.8)
[2017-03-08 06:16] LABS: ALB/GLOB RATIO 1.6 (1.0-1.8); ALBUMIN 2.9 gm/dL (3.7-5.3); ALKALINE PHOSPHATASE 58 U/L (34-104); ANION GAP 11.4 (7.0-16.0); BILIRUBIN,TOTAL 0.7 mg/dL (0.3-1.0); BUN - UREA NITROGEN 48 mg/dL (7-25); CALCIUM SERUM 7.8 mg/dL (8.6-10.3); CARBON DIOXIDE 18.2 mEq/L (21.0-31.0); CHLORIDE 107 mEq/L (98-107); CREATININE - SERUM 1.7 mg/dL (0.6-1.2); GFR AFRICAN-AMERICAN 38.3 ml/min (>90); GFR NON AFRICAN-AMERICAN 31.7 ml/min; GLUCOSE 177 mg/dL (70-105); POTASSIUM SERUM 4.6 mEq/L (3.5-5.1); SGOT 10 U/L (13-39); SGPT/ALT < 3 U/L (7-52); SODIUM SERUM 132 mEq/L (136-145); TOTAL PROTEIN,SERUM 4.7 gm/dL (6.0-8.3)
[2017-03-08] MEDS: Albuterol/Ipratropium Neb 3 ML AERS HHN SCH ×3 (07:47→19:28)
[2017-03-08] MEDS: Multivitamin w/ Minerals Tab PO SCH (08:54)
[2017-03-08] MEDS: Chlorhexidine Gluconate 0.12% 15mL Mouthwash MM SCH ×2 (08:54→19:56)
--- NOTE | 2017-03-08 16:10 | General Progress Note ---
Subjective - Review of Systems Events since last encounter: patient lethargic tube feeding Objective - Results Result Diagrams: 03/08/17 05:25 03/08/17 05:25 Recent Labs: Laboratory Last Values WBC 19.5 Th/cmm (4.8-10.8) H 03/08/17 05:25 RBC 2.93 Mil/cmm (3.80-5.20) L 03/08/17 05:25 Hgb 8.2 gm/dL (12-16) L 03/08/17 05:25 Hct 25.5 % (41.0-60) L 03/08/17 05:25 MCV 87.0 fl (81-100) 03/08/17 05:25 MCH 28.0 pg (27.0-31.0) 03/08/17 05:25 MCHC Differential 32.2 pg (28.0-36.0) 03/08/17 05:25 RDW 13.8 % (11.5-20.0) 03/08/17 05:25 Plt Count 31 Th/cmm (150-400) L 03/08/17 05:25 MPV 8.9 fl 03/08/17 05:25 Neutrophils % 83.2 % (40.0-80.0) H 03/08/17 05:25 Band Neutrophils % 5 % (0-10) 03/06/17 06:00 Lymphocytes % 8.1 % (20.0-50.0) L 03/08/17 05:25 Monocytes % 3.4 % (2.0-10.0) 03/08/17 05:25 Eosinophils % 4.5 % (0.0-5.0) 03/08/17 05:25 Basophils % 0.8 % (0.0-2.0) 03/08/17 05:25 Neutrophils (Manual) 85 % (40-80) H 03/06/17 06:00 Lymphocytes 4 % (20-50) L 03/06/17 06:00 Monocytes 3 % (2-10) 03/06/17 06:00 Eosinophils 3 % (0-5) 03/06/17 06:00 Metamyelocytes 1 % (0-0) H 02/18/17 23:35 Hypochromia 1+ 02/18/17 23:35 Platelet Estimate DECREASED PLATELETS (NORMAL) 03/06/17 06:00 Platelet Morphology (NORMAL) 03/04/17 08:00 PT 13.9 SECONDS (9.5-11.5) H 03/01/17 09:15 INR 1.32 (0.5-1.4) 03/01/17 09:15 PTT (Actin FS) 53.1 SECONDS (26.0-38.0) H 03/01/17 09:15 Specimen Source RADIAL 03/07/17 11:30 Sample Site Left Radial 03/07/17 11:30 pH 7.26 (7.35-7.45) L 03/07/17 11:30 pCO2 41.0 mmHg (35.0-45.0) 03/07/17 11:30 pO2 109.0 mmHg (80.0-100.0) H 03/07/17 11:30 HCO3 18.0 mEq/L (20.0-26.0) L 03/07/17 11:30 Base Excess 8.0 mEq/L (-3.0-3.0) H 03/07/17 11:30 O2 Saturation 98.0 % (92.0-100.0) 03/07/17 11:30 Jorje Test Y 03/07/17 11:30 Vent Rate 550 03/07/17 11:30 Inspired O2 40 03/07/17 11:30 Tidal Volume 505 03/07/17 11:30 PEEP 5 03/07/17 11:30 Pressure (ins/psv/peep) 10 03/07/17 11:30 Critical Value [place] 03/07/17 11:30 Sodium 132 mEq/L (136-145) L 03/08/17 05:25 Potassium 4.6 mEq/L (3.5-5.1) 03/08/17 05:25 Chloride 107 mEq/L (98-107) 03/08/17 05:25 Carbon Dioxide 18.2 mEq/L (21.0-31.0) L 03/08/17 05:25 Anion Gap 11.4 (7.0-16.0) 03/08/17 05:25 BUN 48 mg/dL (7-25) H 03/08/17 05:25 Creatinine 1.7 mg/dL (0.6-1.2) H 03/08/17 05:25 Est GFR ( Amer) 38.3 ml/min (>90) 03/08/17 05:25 Est GFR (Non-Af Amer) 31.7 ml/min 03/08/17 05:25 BUN/Creatinine Ratio 28.2 03/08/17 05:25 Glucose 177 mg/dL (70-105) H 03/08/17 05:25 POC Glucose 171 MG/DL (70 - 105) H 03/08/17 11:34 Hemoglobin A1c % 5.8 % (4.0-6.0) 02/22/17 10:38 Whole Bld Lactic Acid 2.40 mmol/L (0.60-1.99) H* 02/27/17 15:04 Calcium 7.8 mg/dL (8.6-10.3) L 03/08/17 05:25 Phosphorus 2.5 mg/dL (2.5-5.0) 03/01/17 09:15 Magnesium 2.1 mg/dL (1.9-2.7) 03/01/17 09:15 Total Bilirubin 0.7 mg/dL (0.3-1.0) 03/08/17 05:25 Direct Bilirubin 0.09 mg/dL (0.0-0.2) 02/18/17 23:35 AST 10 U/L (13-39) L 03/08/17 05:25 ALT < 3 U/L (7-52) L 03/08/17 05:25 Alkaline Phosphatase 58 U/L (34-104) 03/08/17 05:25 Ammonia 38 umol/L (16-53) 03/01/17 17:28 B-Natriuretic Peptide 158.0 pg/mL (5.0-100.0) H 03/04/17 15:39 Total Protein 4.7 gm/dL (6.0-8.3) L 03/08/17 05:25 Albumin 2.9 gm/dL (3.7-5.3) L 03/08/17 05:25 Globulin 1.8 gm/dL 03/08/17 05:25 Albumin/Globulin Ratio 1.6 (1.0-1.8) 03/08/17 05:25 Amylase 36 U/L (29-103) 02/18/17 23:35 Lipase 10 U/L (11-82) L 02/18/17 23:35 Vitamin B12 860 pg/mL (232-1245) 02/26/17 04:45 Free T4 1.04 ng/dL (0.82-1.77) 02/25/17 04:50 Free T3 0.7 pg/mL (2.0-4.4) L 02/25/17 04:50 TSH 0.84 uIU/ml (0.34-5.60) 02/25/17 04:50 Total Cortisol 12.3 02/24/17 07:50 Urine Source [place] 02/27/17 15:00 Urine Color YELLOW 02/27/17 15:00 Urine Clarity CLOUDY (CLEAR) H 02/27/17 15:00 Urine pH 5.5 (4.6 - 8.0) 02/27/17 15:00 Ur Specific [place] <= 1.005 (1.005-1.030) 02/27/17 15:00 Urine Protein TRACE mg/dL (NEGATIVE) 02/27/17 15:00 Urine Glucose (UA) NEGATIVE mg/dL (NEGATIVE) 02/27/17 15:00 Urine Ketones NEGATIVE mg/dL (NEGATIVE) 02/27/17 15:00 Urine Blood LARGE (NEGATIVE) H 02/27/17 15:00 Urine Nitrate NEGATIVE (NEGATIVE) 02/27/17 15:00 Urine Bilirubin NEGATIVE (NEGATIVE) 02/27/17 15:00 Urine Urobilinogen 0.2 E.U./dL (0.2 - 1.0) 02/27/17 15:00 Ur Leukocyte Esterase LARGE (NEGATIVE) H 02/27/17 15:00 Urine RBC 10-25 /hpf (0-5) H 02/27/17 15:00 Urine WBC >100 /hpf (0-5) H 02/27/17 15:00 Ur Epithelial Cells MODERATE /lpf (FEW) 02/27/17 15:00 Urine Bacteria MODERATE /hpf (NONE SEEN) H 02/27/17 15:00 Urine Yeast MODERATE /hpf (NONE SEEN) H 02/20/17 16:15 Blood Type A POSITIVE 02/27/17 15:04 Antibody Screen NEGATIVE 02/27/17 15:04 Crossmatch See Detail 02/27/17 15:04 - Physical Exam Vitals and I&O: Vital Signs Temp 97.0 F 03/08/17 15:00 Pulse 68 03/08/17 15:20 Resp 15 03/08/17 15:00 BP 116/45 03/08/17 15:00 Pulse Ox 100 03/08/17 15:20 Intake & Output 03/07/17 03/08/17 03/08/17 18:59 06:59 18:59 Intake Total 574.165 9384.068 350 Output Total 350 375 Balance 359.568 757.068 350 Weight (lbs) 120.259 kg 76.43 kg Intake: Intake, IV Amount 529.568 732.068 350 Albumin 25% 12.5gm/50mL 50 100 50 12.5 gm In 50 ml @ 50 mls /hr IV Q8HR [facility] Rx#: [id number] Meropenem 1 gm In 100 100 100 Dextrose 5% 100 ml @ 100 mls/hr IV Q12H [facility] Rx#: [id number] Norepinephrine 8 mg In 179.568 244.068 Sodium Chloride 0.9% 250 ml @ Per Protocol IV TITR [facility] Rx#:[id number] Pantoprazole 80 mg In 100 88 100 Sodium Chloride 0.9% 100 ml @ 10 mls/hr IV Q10H [facility] Rx#:[id number] metroNIDAZOLE 500mg/NS 100 200 100 100mL 500 mg In 100 ml @ 100 mls/hr IV Q8HR [facility] Rx #:[id number] Oral 0 Tube Feeding 20 300 Albumin 100 Other 160 Output: Urine 350 375 Other: # Bowel Movements 0 0 Active Medications: Current Medications Acetaminophen (Tylenol) 650 mg PO Q4HR PRN PRN Reason: Pain (Mild) Stop: 04/20/17 12:01 Last Admin: 03/06/17 03:23 Dose: 650 mg Albuterol/Ipratropium (Duoneb Neb) 3 ml HHN Q4HRT PRN PRN Reason: Wheezing Stop: 04/27/17 19:59 Last Admin: 02/28/17 03:18 Dose: 3 ml Albuterol/Ipratropium (Duoneb Neb) 3 ml HHN [id number] [facility] Stop: 04/27/17 19:59 Last Admin: 03/08/17 13:35 Dose: 3 ml Aspirin (Ecotrin) 81 mg PO DAILY [facility] Stop: 04/21/17 08:59 Last Admin: 03/08/17 08:54 Dose: 81 mg Chlorhexidine Gluconate (Peridex) 15 ml MM [facility] Stop: 04/28/17 19:59 Last Admin: 03/08/17 08:54 Dose: 15 ml Diltiazem HCl (Cardizem) 5 mg IVP Q4H PRN PRN Reason: HR > 120 Stop: 04/27/17 19:59 Last Admin: 02/27/17 04:59 Dose: 5 mg Docusate Sodium (Colace) 100 mg PO BID [facility] Stop: 04/20/17 16:59 Last Admin: 03/08/17 08:54 Dose: 100 mg Furosemide (Lasix) 40 mg IVP DAILY [facility] Stop: 05/07/17 08:59 Last Admin: 03/08/17 08:54 Dose: 40 mg Pantoprazole Sodium 80 mg/ (Sodium Chloride) 100 mls @ 10 mls/hr IV Q10H [facility] Stop: 04/20/17 08:59 Last Admin: 03/08/17 11:00 Dose: 10 mls/hr Phenylephrine HCl 10 mg/ (Sodium Chloride) 250 mls @ 0 mls/hr IV TITR [facility]; Per Protocol PRN Reason: Protocol Stop: 04/28/17 07:59 Norepinephrine Bitartrate 8 mg (/ Sodium Chloride) 258 mls @ 0 mls/hr IV TITR [facility]; Per Protocol PRN Reason: Protocol Stop: 04/28/17 09:59 Last Admin: 03/08/17 04:06 Dose: 8 mcg/min, 15.48 mls/hr Meropenem 1 gm/ Dextrose 100 mls @ 100 mls/hr IV Q12H [facility] Stop: 04/28/17 12:29 Last Infusion: 03/08/17 12:30 Dose: Infused Metronidazole (Flagyl) 500 mg in 100 mls @ 100 mls/hr IV Q8HR [facility] Stop: 05/04/17 20:59 Last Infusion: 03/08/17 13:40 Dose: Infused Dextrose/Sodium Chloride (D5-0.9%Ns) 1,000 mls @ 75 mls/hr IV .[id number] [facility] Stop: 05/06/17 16:59 Last Admin: 03/07/17 17:30 Dose: 75 mls/hr Insulin Aspart (Novolog Insulin Sliding Scale) 0 units SUBQ Q6H [facility] PRN Reason: Protocol Stop: 05/03/17 00:00 Last Admin: 03/08/17 11:35 Dose: 2 units Metoclopramide HCl (Reglan) 5 mg IVP Q6HR [facility] Stop: 05/05/17 17:59 Last Admin: 03/08/17 11:31 Dose: 5 mg Mirtazapine (Remeron) 15 mg PO HS [facility] PRN Reason: Protocol Stop: 04/26/17 20:59 Last Admin: 03/07/17 22:37 Dose: 15 mg Miscellaneous (Probiotic Screen) 1 ea MC PRN PRN PRN Reason: PROTOCOL Stop: 04/21/17 16:25 Morphine Sulfate (Morphine) 1 mg IVP Q4HR PRN PRN Reason: Severe Pain Stop: 05/04/17 14:13 Last Admin: 03/06/17 12:02 Dose: 1 mg Nitroglycerin (Nitrostat) 0.4 mg SL Q5MIN PRN PRN Reason: Chest Pain Stop: 04/20/17 12:01 Nystatin (Nystop) 100,000 units TP BID PRN PRN Reason: SKIN EXCORIATIONS Stop: 04/21/17 15:35 Last Admin: 03/08/17 06:00 Dose: 100,000 units Ondansetron HCl (Zofran) 4 mg IV Q6H PRN PRN Reason: Nausea Stop: 04/20/17 03:38 General: Alert, No acute distress HEENT: Atraumatic, EOMI Neck: Supple, JVD, +2 carotid pulse wo bruit Cardiovascular: Regular rate, Normal S1, Normal S2 Lungs: Other (coarse rhonchi) Abdomen: Bowel sounds, Soft Extremities: Other (min edema) Neurological: Sensation intact Skin: no Rash Psych/Mental Status: Mood NL - Procedures Procedures: Procedures Procedure Code Date INSERT EMERGENCY AIRWAY 08973 02/19/17 INSERTION OF ENDOTRACHEAL AIRWAY INTO [place], VIA OPENING [id number] 02/19/17 RESPIRATORY VENTILATION, GREATER THAN 96 CONSECUTIVE HOURS [id number] 02/19/17 VENT MGMT INPAT INIT DAY 83810 02/19/17 VENT MGMT INPAT SUBQ DAY 82078 02/19/17 Assessment/Plan - Problem List Patient Problems: All Active Problems Acute kidney failure (Acute) 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 Azotemia (Acute) R79.89 Bradycardia (Acute) R00.1 COPD (chronic obstructive pulmonary disease) (Acute) Cardiomegaly (Acute) I51.7 Chest pain (Acute) R07.9 Decubitus ulcer of buttock, 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 Nutritional Asmnt/Malnutr-PDOC - Dietary Evaluation Malnutrition Findings (Please click <Entered> for more info): Nutritional Asmnt/Malnutrition Start: 02/21/17 18: 20 Text: Status: Complete Freq: Document 02/21/17 18:21 HEN (Rec: 02/21/17 18:32 HEN [email or web address]) Nutritional Asmnt/Malnutrition Patient General Information Nutritional Screening High Risk Consult Diagnosis gastric outlet obstruction Pertinent Medical Hx/Surgical Hx HTN, OA, DM, GERD Subjective Information Pt seen sleeping at the time of visit, attempted x 2. Spoke with RN, pt consumed 50% of breakfast and only the soup of lunch today, not much appetite, no complain of N/V. Pt will be NPO from midnight for GI exam tommorrow. Current Diet Order/ Nutrition Support no added salt 4gm, CCHO, no eggs, banana and cereal in morning Pertinent Medications colace, lasix, novolog, levaquin, piperacillin Pertinent Labs 02/20 Na 137, K 4.5, Cl 104, BUN 55, Cr 1.6, Glucose 137, POC 126-199 since admit, Ca 8. 3 Nutritional Hx/Data Height 1.57 m Height (Calculated Centimeters) 157.5 Current Weight (lbs) 97.023 kg Weight (Calculated Kilograms) 97.0 Weight (Calculated Grams) 82816.4 [place] Body Weight 110 % [place] Body Weight 194 Body Mass Index (BMI) 39.1 Weight Status Obese GI Symptoms GI Symptoms None Last BM none Difficult in: None Skin Integrity/Comment: multiple maceration, abrasion to right/left medial thigh Current %PO Poor (25-49%) Estimated Nutritional Goals BEE in Kcals: Adj wt of IBW Calories/Kcals/Kg 27-32 Kcals Calculated Protein: Adj wt of IBW Protein g/k-1.2 Protein Calculated 62-74 Fluid: ml Nutritional Problem 1. Problem Problem inadequate PO intake Etiology poor appetite Signs/Symptoms: PO intake 25-50% Malnutrition Alert Protein-Calorie Malnutrition N/A Is there a minimum of two criteria No selected? Query Text:Check all the applicable criteria. A minimum of two criteria are recommended for diagnosis of either severe or non-severe malnutrition. Intervention/Recommendation Comments 1. Continue with current diet as ordered. 2. Monitor PO intake, GI symptons, wt, labs and skin integrity 3. F/U as high risk in 2-3 days, 02/23-02/24 Expected Outcomes/Goals Expected Outcomes/Goals 1. PO intake to meet at least 75% of nutritional needs. 2. Wt stability, skin to remain intact, labs to improve
[2017-03-08] MEDS: D5-0.9%NS 1,000 ML IV SCH (20:47)
[2017-03-09] MEDS: metroNIDAZOLE 500mg/NS 100mL 500 MG/100 ML BAG IV SCH ×3 (04:57→20:32)
[2017-03-09] MEDS: Metoclopramide 5 mg/mL 2mL Vial IVP SCH ×4 (05:08→23:21)
[2017-03-09 06:21] LABS: NEUTROPHILE ABSOLUTE 10.9 Th/cmm (1.8-8.0)
[2017-03-09] MEDS: INSULIN ASPART SLIDING SCALE 100 UNITS/ML UNIT SUBQ SCH ×5 (06:25→23:20)
[2017-03-09 06:27] LABS: % EOSINOPHILS 5.4 % (0.0-5.0); % LYMPHOCYTES 12.4 % (20.0-50.0); % MONOCYTES 5.2 % (2.0-10.0); EOSINOPHILE ABSOLUTE 0.8 Th/cmm (0.1-0.4); HEMATOCRIT 23.4 % (41.0-60); HEMOGLOBIN 8.1 gm/dL (12-16); LYMPHOCYTE ABSOLUTE 1.8 Th/cmm (1.5-3.0); MEAN CELL VOLUME 86.2 fl (81-100); MEAN CORPUSCULAR HEMOGLOBIN 29.7 pg (27.0-31.0); MEAN CORPUSCULAR HGB CONC 34.5 pg (28.0-36.0); MEAN PLATELET VOLUME 9.2 fl; MONOCYTE ABSOLUTE 0.7 Th/cmm (0.3-1.0); RED BLOOD COUNT 2.72 Mil/cmm (3.80-5.20); RED CELL DISTRIBUTION WIDTH 13.3 % (11.5-20.0)
[2017-03-09 06:31] LABS: PLATELET COUNT 25 Th/cmm (150-400); WHITE BLOOD COUNT 14.2 Th/cmm (4.8-10.8)
[2017-03-09 06:49] LABS: ANION GAP 11.5 (7.0-16.0); CALCIUM SERUM 7.8 mg/dL (8.6-10.3); CARBON DIOXIDE 18.9 mEq/L (21.0-31.0); CREATININE - SERUM 1.7 mg/dL (0.6-1.2); GFR AFRICAN-AMERICAN 38.3 ml/min (>90); GFR NON AFRICAN-AMERICAN 31.7 ml/min; POTASSIUM SERUM 4.4 mEq/L (3.5-5.1)
[2017-03-09] MEDS: Albuterol/Ipratropium Neb 3 ML AERS HHN SCH ×3 (07:40→19:45)
[2017-03-09] MEDS: Multivitamin w/ Minerals Tab PO SCH (08:58)
[2017-03-09] MEDS: Aspirin 81mg Chewable Tab PO SCH (08:58)
[2017-03-09] MEDS: Pantoprazole 80 MG in Sodium Chloride 0.9% 100 ML IV SCH ×2 (08:59→19:35)
[2017-03-09] MEDS: Chlorhexidine Gluconate 0.12% 15mL Mouthwash MM SCH ×2 (09:00→19:34)
--- NOTE | 2017-03-09 09:05 | General Progress Note ---
Subjective - Review of Systems Events since last encounter: no change Objective - Results Result Diagrams: 03/09/17 05:50 03/09/17 05:50 Recent Labs: Laboratory Last Values WBC 14.2 Th/cmm (4.8-10.8) H D 03/09/17 05:50 RBC 2.72 Mil/cmm (3.80-5.20) L 03/09/17 05:50 Hgb 8.1 gm/dL (12-16) L 03/09/17 05:50 Hct 23.4 % (41.0-60) L 03/09/17 05:50 MCV 86.2 fl (81-100) 03/09/17 05:50 MCH 29.7 pg (27.0-31.0) 03/09/17 05:50 MCHC Differential 34.5 pg (28.0-36.0) 03/09/17 05:50 RDW 13.3 % (11.5-20.0) 03/09/17 05:50 Plt Count 25 Th/cmm (150-400) L* 03/09/17 05:50 MPV 9.2 fl 03/09/17 05:50 Neutrophils % 77.0 % (40.0-80.0) 03/09/17 05:50 Band Neutrophils % 5 % (0-10) 03/06/17 06:00 Lymphocytes % 12.4 % (20.0-50.0) L 03/09/17 05:50 Monocytes % 5.2 % (2.0-10.0) 03/09/17 05:50 Eosinophils % 5.4 % (0.0-5.0) H 03/09/17 05:50 Basophils % 0.0 % (0.0-2.0) 03/09/17 05:50 Neutrophils (Manual) 85 % (40-80) H 03/06/17 06:00 Lymphocytes 4 % (20-50) L 03/06/17 06:00 Monocytes 3 % (2-10) 03/06/17 06:00 Eosinophils 3 % (0-5) 03/06/17 06:00 Metamyelocytes 1 % (0-0) H 02/18/17 23:35 Hypochromia 1+ 02/18/17 23:35 Platelet Estimate DECREASED PLATELETS (NORMAL) 03/06/17 06:00 Platelet Morphology (NORMAL) 03/04/17 08:00 PT 13.9 SECONDS (9.5-11.5) H 03/01/17 09:15 INR 1.32 (0.5-1.4) 03/01/17 09:15 PTT (Actin FS) 53.1 SECONDS (26.0-38.0) H 03/01/17 09:15 Specimen Source RADIAL 03/07/17 11:30 Sample Site Left Radial 03/07/17 11:30 pH 7.26 (7.35-7.45) L 03/07/17 11:30 pCO2 41.0 mmHg (35.0-45.0) 03/07/17 11:30 pO2 109.0 mmHg (80.0-100.0) H 03/07/17 11:30 HCO3 18.0 mEq/L (20.0-26.0) L 03/07/17 11:30 Base Excess 8.0 mEq/L (-3.0-3.0) H 03/07/17 11:30 O2 Saturation 98.0 % (92.0-100.0) 03/07/17 11:30 Jorje Test Y 03/07/17 11:30 Vent Rate 550 03/07/17 11:30 Inspired O2 40 03/07/17 11:30 Tidal Volume 505 03/07/17 11:30 PEEP 5 03/07/17 11:30 Pressure (ins/psv/peep) 10 03/07/17 11:30 Critical Value [place] 03/07/17 11:30 Sodium 133 mEq/L (136-145) L 03/09/17 05:50 Potassium 4.4 mEq/L (3.5-5.1) 03/09/17 05:50 Chloride 107 mEq/L (98-107) 03/09/17 05:50 Carbon Dioxide 18.9 mEq/L (21.0-31.0) L 03/09/17 05:50 Anion Gap 11.5 (7.0-16.0) 03/09/17 05:50 BUN 49 mg/dL (7-25) H 03/09/17 05:50 Creatinine 1.7 mg/dL (0.6-1.2) H 03/09/17 05:50 Est GFR ( Amer) 38.3 ml/min (>90) 03/09/17 05:50 Est GFR (Non-Af Amer) 31.7 ml/min 03/09/17 05:50 BUN/Creatinine Ratio 28.8 03/09/17 05:50 Glucose 159 mg/dL (70-105) H 03/09/17 05:50 POC Glucose 147 MG/DL (70 - 105) H 03/09/17 06:22 Hemoglobin A1c % 5.8 % (4.0-6.0) 02/22/17 10:38 Whole Bld Lactic Acid 2.40 mmol/L (0.60-1.99) H* 02/27/17 15:04 Calcium 7.8 mg/dL (8.6-10.3) L 03/09/17 05:50 Phosphorus 2.5 mg/dL (2.5-5.0) 03/01/17 09:15 Magnesium 2.1 mg/dL (1.9-2.7) 03/01/17 09:15 Total Bilirubin 0.7 mg/dL (0.3-1.0) 03/08/17 05:25 Direct Bilirubin 0.09 mg/dL (0.0-0.2) 02/18/17 23:35 AST 10 U/L (13-39) L 03/08/17 05:25 ALT < 3 U/L (7-52) L 03/08/17 05:25 Alkaline Phosphatase 58 U/L (34-104) 03/08/17 05:25 Ammonia 38 umol/L (16-53) 03/01/17 17:28 B-Natriuretic Peptide 158.0 pg/mL (5.0-100.0) H 03/04/17 15:39 Total Protein 4.7 gm/dL (6.0-8.3) L 03/08/17 05:25 Albumin 2.9 gm/dL (3.7-5.3) L 03/08/17 05:25 Globulin 1.8 gm/dL 03/08/17 05:25 Albumin/Globulin Ratio 1.6 (1.0-1.8) 03/08/17 05:25 Amylase 36 U/L (29-103) 02/18/17 23:35 Lipase 10 U/L (11-82) L 02/18/17 23:35 Vitamin B12 860 pg/mL (232-1245) 02/26/17 04:45 Free T4 1.04 ng/dL (0.82-1.77) 02/25/17 04:50 Free T3 0.7 pg/mL (2.0-4.4) L 02/25/17 04:50 TSH 0.84 uIU/ml (0.34-5.60) 02/25/17 04:50 Total Cortisol 12.3 02/24/17 07:50 Urine Source [place] 02/27/17 15:00 Urine Color YELLOW 02/27/17 15:00 Urine Clarity CLOUDY (CLEAR) H 02/27/17 15:00 Urine pH 5.5 (4.6 - 8.0) 02/27/17 15:00 Ur Specific [place] <= 1.005 (1.005-1.030) 02/27/17 15:00 Urine Protein TRACE mg/dL (NEGATIVE) 02/27/17 15:00 Urine Glucose (UA) NEGATIVE mg/dL (NEGATIVE) 02/27/17 15:00 Urine Ketones NEGATIVE mg/dL (NEGATIVE) 02/27/17 15:00 Urine Blood LARGE (NEGATIVE) H 02/27/17 15:00 Urine Nitrate NEGATIVE (NEGATIVE) 02/27/17 15:00 Urine Bilirubin NEGATIVE (NEGATIVE) 02/27/17 15:00 Urine Urobilinogen 0.2 E.U./dL (0.2 - 1.0) 02/27/17 15:00 Ur Leukocyte Esterase LARGE (NEGATIVE) H 02/27/17 15:00 Urine RBC 10-25 /hpf (0-5) H 02/27/17 15:00 Urine WBC >100 /hpf (0-5) H 02/27/17 15:00 Ur Epithelial Cells MODERATE /lpf (FEW) 02/27/17 15:00 Urine Bacteria MODERATE /hpf (NONE SEEN) H 02/27/17 15:00 Urine Yeast MODERATE /hpf (NONE SEEN) H 02/20/17 16:15 Blood Type A POSITIVE 02/27/17 15:04 Antibody Screen NEGATIVE 02/27/17 15:04 Crossmatch See Detail 02/27/17 15:04 - Physical Exam Vitals and I&O: Vital Signs Temp 97.9 F 03/09/17 04:00 Pulse 85 03/09/17 07:40 Resp 12 03/09/17 07:00 BP 130/99 03/09/17 08:59 Pulse Ox 100 03/09/17 07:40 Intake & Output 03/08/17 03/09/17 03/09/17 18:59 06:59 18:59 Intake Total 226.602 4286.617 14.833 Output Total 480 601 Balance 683.718 3626.617 14.833 Weight (lbs) 122.186 kg 121.733 kg Intake: Intake, IV Amount 368.320 8280.617 14.833 Albumin 25% 12.5gm/50mL 50 12.5 gm In 50 ml @ 50 mls /hr IV Q8HR [facility] Rx#: [id number] D5-0.9%Ns 1,000 ml @ 75 1691.25 mls/hr IV .[id number] [facility] Rx #:[id number] Meropenem 1 gm In 100 100 Dextrose 5% 100 ml @ 100 mls/hr IV Q12H [facility] Rx#: [id number] Norepinephrine 8 mg In 161.315 101.200 Sodium Chloride 0.9% 250 ml @ Per Protocol IV TITR [facility] Rx#:[id number] Pantoprazole 80 mg In 100 185.167 14.833 Sodium Chloride 0.9% 100 ml @ 10 mls/hr IV Q10H [facility] Rx#:[id number] metroNIDAZOLE 500mg/NS 100 200 100mL 500 mg In 100 ml @ 100 mls/hr IV Q8HR [facility] Rx #:[id number] Oral 0 Tube Feeding 240 100 Other 200 50 Output: Urine 480 600 Stool 1 Other: # Bowel Movements 0 Active Medications: Current Medications Acetaminophen (Tylenol) 650 mg PO Q4HR PRN PRN Reason: Pain (Mild) Stop: 04/20/17 12:01 Last Admin: 03/06/17 03:23 Dose: 650 mg Albuterol/Ipratropium (Duoneb Neb) 3 ml HHN Q4HRT PRN PRN Reason: Wheezing Stop: 04/27/17 19:59 Last Admin: 02/28/17 03:18 Dose: 3 ml Albuterol/Ipratropium (Duoneb Neb) 3 ml HHN [id number] [facility]RIA Stop: 04/27/17 19:59 Last Admin: 03/09/17 07:40 Dose: 3 ml Aspirin (Aspirin Chewable) 81 mg PO DAILY [facility] Stop: 05/08/17 08:59 Last Admin: 03/09/17 08:58 Dose: 81 mg Chlorhexidine Gluconate (Peridex) 15 ml MM 08,1999 [facility] Stop: 04/28/17 19:59 Last Admin: 03/09/17 09:00 Dose: 15 ml Diltiazem HCl (Cardizem) 5 mg IVP Q4H PRN PRN Reason: HR > 120 Stop: 04/27/17 19:59 Last Admin: 02/27/17 04:59 Dose: 5 mg Docusate Sodium (Colace) 100 mg PO BID [facility] Stop: 04/20/17 16:59 Last Admin: 03/09/17 08:58 Dose: 100 mg Furosemide (Lasix) 40 mg IVP BID [facility] Stop: 05/08/17 08:59 Last Admin: 03/09/17 08:59 Dose: 40 mg Pantoprazole Sodium 80 mg/ (Sodium Chloride) 100 mls @ 10 mls/hr IV Q10H [facility] Stop: 04/20/17 08:59 Last Admin: 03/09/17 08:59 Dose: 10 mls/hr Phenylephrine HCl 10 mg/ (Sodium Chloride) 250 mls @ 0 mls/hr IV TITR PATRIA; Per Protocol PRN Reason: Protocol Stop: 04/28/17 07:59 Norepinephrine Bitartrate 8 mg (/ Sodium Chloride) 258 mls @ 0 mls/hr IV TITR PATRIA; Per Protocol PRN Reason: Protocol Stop: 04/28/17 09:59 Last Titration: 03/09/17 06:00 Dose: 4 mcg/min, 7.74 mls/hr Meropenem 1 gm/ Dextrose 100 mls @ 100 mls/hr IV Q12H [facility] Stop: 04/28/17 12:29 Last Infusion: 03/09/17 00:45 Dose: Infused Metronidazole (Flagyl) 500 mg in 100 mls @ 100 mls/hr IV Q8HR [facility] Stop: 05/04/17 20:59 Last Infusion: 03/09/17 06:00 Dose: Infused Dextrose/Sodium Chloride (D5-0.9%Ns) 1,000 mls @ 75 mls/hr IV .[id number] PATRIA Stop: 05/06/17 16:59 Last Infusion: 03/09/17 06:00 Dose: 75 mls/hr Insulin Aspart (Novolog Insulin Sliding Scale) 0 units SUBQ Q6H [facility]RIA PRN Reason: Protocol Stop: 05/03/17 00:00 Last Admin: 03/09/17 06:25 Dose: Not Given Metoclopramide HCl (Reglan) 5 mg IVP Q6HR [facility] Stop: 05/05/17 17:59 Last Admin: 03/09/17 05:08 Dose: 5 mg Mirtazapine (Remeron) 15 mg PO HS PATRIA PRN Reason: Protocol Stop: 04/26/17 20:59 Last Admin: 03/08/17 20:35 Dose: 15 mg Miscellaneous (Probiotic Screen) 1 ea MC PRN PRN PRN Reason: PROTOCOL Stop: 04/21/17 16:25 Morphine Sulfate (Morphine) 1 mg IVP Q4HR PRN PRN Reason: Severe Pain Stop: 05/04/17 14:13 Last Admin: 03/06/17 12:02 Dose: 1 mg Nitroglycerin (Nitrostat) 0.4 mg SL Q5MIN PRN PRN Reason: Chest Pain Stop: 04/20/17 12:01 Nystatin (Nystop) 100,000 units TP BID PRN PRN Reason: SKIN EXCORIATIONS Stop: 04/21/17 15:35 Last Admin: 03/08/17 06:00 Dose: 100,000 units Ondansetron HCl (Zofran) 4 mg IV Q6H PRN PRN Reason: Nausea Stop: 04/20/17 03:38 General: Alert, No acute distress HEENT: Atraumatic, EOMI Neck: Supple, JVD, +2 carotid pulse wo bruit Cardiovascular: Regular rate, Normal S1, Normal S2 Lungs: Other (coarse rhonchi) Abdomen: Bowel sounds, Soft Extremities: Other (min edema) Neurological: Sensation intact Skin: no Rash Psych/Mental Status: Mood NL - Procedures Procedures: Procedures Procedure Code Date INSERT EMERGENCY AIRWAY 26704 02/19/17 INSERTION OF ENDOTRACHEAL AIRWAY INTO [place]HE[place], VIA OPENING [id number] 02/19/17 RESPIRATORY VENTILATION, GREATER THAN 96 CONSECUTIVE HOURS [id number] 02/19/17 VENT MGMT INPAT INIT DAY 09537 02/19/17 VENT MGMT INPAT SUBQ DAY 80419 02/19/17 Assessment/Plan - Problem List Patient Problems: All Active Problems Acute kidney failure (Acute) 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 Azotemia (Acute) R79.89 Bradycardia (Acute) R00.1 COPD (chronic obstructive pulmonary disease) (Acute) Cardiomegaly (Acute) I51.7 Chest pain (Acute) R07.9 Decubitus ulcer of buttock, 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 Nutritional Asmnt/Malnutr-PDOC - Dietary Evaluation Malnutrition Findings (Please click <Entered> for more info): Nutritional Asmnt/Malnutrition Start: 02/21/17 18: 20 Text: Status: Complete Freq: Document 02/21/17 18:21 LCANCELMO (Rec: 02/21/17 18:32 [place] [id number]) Nutritional Asmnt/Malnutrition Patient General Information Nutritional Screening High Risk Consult Diagnosis gastric outlet obstruction Pertinent Medical Hx/Surgical Hx HTN, OA, DM, GERD Subjective Information Pt seen sleeping at the time of visit, attempted x 2. Spoke with RN, pt consumed 50% of breakfast and only the soup of lunch today, not much appetite, no complain of N/V. Pt will be NPO from midnight for GI exam tommorrow. Current Diet Order/ Nutrition Support no added salt 4gm, CCHO, no eggs, banana and cereal in morning Pertinent Medications colace, lasix, novolog, levaquin, piperacillin Pertinent Labs 02/20 Na 137, K 4.5, Cl 104, BUN 55, Cr 1.6, Glucose 137, POC 126-199 since admit, Ca 8. 3 Nutritional Hx/Data Height 1.57 m Height (Calculated Centimeters) 157.5 Current Weight (lbs) 97.023 kg Weight (Calculated Kilograms) 97.0 Weight (Calculated Grams) 63572.4 [place] Body Weight 110 % [place] Body Weight 194 Body Mass Index (BMI) 39.1 Weight Status Obese GI Symptoms GI Symptoms None Last BM none Difficult in: None Skin Integrity/Comment: multiple maceration, abrasion to right/left medial thigh Current %PO Poor (25-49%) Estimated Nutritional Goals BEE in Kcals: Adj wt of IBW Calories/Kcals/Kg 27-32 Kcals Calculated Protein: Adj wt of IBW Protein g/k-1.2 Protein Calculated 62-74 Fluid: ml Nutritional Problem 1. Problem Problem inadequate PO intake Etiology poor appetite Signs/Symptoms: PO intake 25-50% Malnutrition Alert Protein-Calorie Malnutrition N/A Is there a minimum of two criteria No selected? Query Text:Check all the applicable criteria. A minimum of two criteria are recommended for diagnosis of either severe or non-severe malnutrition. Intervention/Recommendation Comments 1. Continue with current diet as ordered. 2. Monitor PO intake, GI symptons, wt, labs and skin integrity 3. F/U as high risk in 2-3 days, 02/23-02/24 Expected Outcomes/Goals Expected Outcomes/Goals 1. PO intake to meet at least 75% of nutritional needs. 2. Wt stability, skin to remain intact, labs to improve
--- NOTE | 2017-03-09 09:21 | Diagnostic Imaging Report ---
CHEST X-RAY: AP view INDICATION: Shortness of breath Comparison: 03/07/2017 FINDINGS: Support devices are stable. Persistent mild CHF is seen with small bilateral effusions. Cardiomegaly is noted. Exam is limited due to rotation. IMPRESSION: Persistent mild CHF and small bilateral effusions. Pneumonia of the right lung base cannot be excluded. Note exam is limited due to rotation. Cardiomegaly.
[2017-03-09 09:55] LABS: pH 7.36 (7.35-7.45)
[2017-03-09 09:56] LABS: ALLEN TEST YES
[2017-03-09] MEDS: D5-0.9%NS 1,000 ML IV SCH (12:17)
--- NOTE | 2017-03-09 12:30 | Progress Notes ---
DATE: 03/08/2017 LOCATION: [facility] ICU, bed #10. SUBJECTIVE: The patient has made more urine today after Lasix. PHYSICAL EXAMINATION: VITAL SIGNS: Blood pressure is improved 112/43, temperature 96.3, pulse 96, respirations 12. Yesterday's intake 2909, output only 250. Today's output 500 so far. HEART: Regular. LUNGS: Rhonchi and rales on both sides. ABDOMEN: Soft. EXTREMITIES: Edema. LABORATORY DATA: WBC 19.5, hemoglobin 8.2. Sodium 132, potassium 4.6, chloride 107, CO2 18, blood sugar 177, BUN 48, creatinine 1.7, previous BUN and creatinine were 48 and 1.8. ASSESSMENT: 1. Acute kidney injury. 2. Oliguria, improving. 3. Respiratory failure. 4. Hypotension, improving. 5. Chronic obstructive pulmonary disease. 6. Respiratory failure. 7. Decubiti ulcer. 8. Diabetes mellitus. 9. History of pacemaker insertion. PLAN: Increase Lasix to 40 mg IV b.i.d., Levophed p.r.n. labs in the morning. Continue other treatment. Discussed with nursing staff. JOB# [id number]
--- NOTE | 2017-03-09 12:39 | General Progress Note ---
Subjective - Review of Systems Service Date: 03/09/17 Subjective: stuporous, on vent Objective - Results Result Diagrams: 03/09/17 05:50 03/09/17 05:50 Recent Labs: Laboratory Last Values WBC 14.2 Th/cmm (4.8-10.8) H D 03/09/17 05:50 RBC 2.72 Mil/cmm (3.80-5.20) L 03/09/17 05:50 Hgb 8.1 gm/dL (12-16) L 03/09/17 05:50 Hct 23.4 % (41.0-60) L 03/09/17 05:50 MCV 86.2 fl (81-100) 03/09/17 05:50 MCH 29.7 pg (27.0-31.0) 03/09/17 05:50 MCHC Differential 34.5 pg (28.0-36.0) 03/09/17 05:50 RDW 13.3 % (11.5-20.0) 03/09/17 05:50 Plt Count 25 Th/cmm (150-400) L* 03/09/17 05:50 MPV 9.2 fl 03/09/17 05:50 Neutrophils % 77.0 % (40.0-80.0) 03/09/17 05:50 Band Neutrophils % 5 % (0-10) 03/06/17 06:00 Lymphocytes % 12.4 % (20.0-50.0) L 03/09/17 05:50 Monocytes % 5.2 % (2.0-10.0) 03/09/17 05:50 Eosinophils % 5.4 % (0.0-5.0) H 03/09/17 05:50 Basophils % 0.0 % (0.0-2.0) 03/09/17 05:50 Neutrophils (Manual) 85 % (40-80) H 03/06/17 06:00 Lymphocytes 4 % (20-50) L 03/06/17 06:00 Monocytes 3 % (2-10) 03/06/17 06:00 Eosinophils 3 % (0-5) 03/06/17 06:00 Metamyelocytes 1 % (0-0) H 02/18/17 23:35 Hypochromia 1+ 02/18/17 23:35 Platelet Estimate DECREASED PLATELETS (NORMAL) 03/06/17 06:00 Platelet Morphology (NORMAL) 03/04/17 08:00 PT 13.9 SECONDS (9.5-11.5) H 03/01/17 09:15 INR 1.32 (0.5-1.4) 03/01/17 09:15 PTT (Actin FS) 53.1 SECONDS (26.0-38.0) H 03/01/17 09:15 Specimen Source Arterial 03/09/17 09:45 Sample Site Right Radial 03/09/17 09:45 pH 7.36 (7.35-7.45) 03/09/17 09:45 pCO2 36.0 mmHg (35.0-45.0) 03/09/17 09:45 pO2 120.0 mmHg (80.0-100.0) H 03/09/17 09:45 HCO3 21.4 mEq/L (20.0-26.0) 03/09/17 09:45 Base Excess -4.6 mEq/L (-3.0-3.0) L 03/09/17 09:45 O2 Saturation 99.0 % (92.0-100.0) 03/09/17 09:45 Jorje Test YES 03/09/17 09:45 Vent Rate 12 03/09/17 09:45 Inspired O2 40 03/09/17 09:45 Tidal Volume 550 03/09/17 09:45 PEEP 5 03/09/17 09:45 Pressure (ins/psv/peep) 15 03/09/17 09:45 Critical Value E.HERNANDEZ 03/09/17 09:45 Sodium 133 mEq/L (136-145) L 03/09/17 05:50 Potassium 4.4 mEq/L (3.5-5.1) 03/09/17 05:50 Chloride 107 mEq/L (98-107) 03/09/17 05:50 Carbon Dioxide 18.9 mEq/L (21.0-31.0) L 03/09/17 05:50 Anion Gap 11.5 (7.0-16.0) 03/09/17 05:50 BUN 49 mg/dL (7-25) H 03/09/17 05:50 Creatinine 1.7 mg/dL (0.6-1.2) H 03/09/17 05:50 Est GFR ( Amer) 38.3 ml/min (>90) 03/09/17 05:50 Est GFR (Non-Af Amer) 31.7 ml/min 03/09/17 05:50 BUN/Creatinine Ratio 28.8 03/09/17 05:50 Glucose 159 mg/dL (70-105) H 03/09/17 05:50 POC Glucose 147 MG/DL (70 - 105) H 03/09/17 06:22 Hemoglobin A1c % 5.8 % (4.0-6.0) 02/22/17 10:38 Whole Bld Lactic Acid 2.40 mmol/L (0.60-1.99) H* 02/27/17 15:04 Calcium 7.8 mg/dL (8.6-10.3) L 03/09/17 05:50 Phosphorus 2.5 mg/dL (2.5-5.0) 03/01/17 09:15 Magnesium 2.1 mg/dL (1.9-2.7) 03/01/17 09:15 Total Bilirubin 0.7 mg/dL (0.3-1.0) 03/08/17 05:25 Direct Bilirubin 0.09 mg/dL (0.0-0.2) 02/18/17 23:35 AST 10 U/L (13-39) L 03/08/17 05:25 ALT < 3 U/L (7-52) L 03/08/17 05:25 Alkaline Phosphatase 58 U/L (34-104) 03/08/17 05:25 Ammonia 38 umol/L (16-53) 03/01/17 17:28 B-Natriuretic Peptide 158.0 pg/mL (5.0-100.0) H 03/04/17 15:39 Total Protein 4.7 gm/dL (6.0-8.3) L 03/08/17 05:25 Albumin 2.9 gm/dL (3.7-5.3) L 03/08/17 05:25 Globulin 1.8 gm/dL 03/08/17 05:25 Albumin/Globulin Ratio 1.6 (1.0-1.8) 03/08/17 05:25 Amylase 36 U/L (29-103) 02/18/17 23:35 Lipase 10 U/L (11-82) L 02/18/17 23:35 Vitamin B12 860 pg/mL (232-1245) 02/26/17 04:45 Free T4 1.04 ng/dL (0.82-1.77) 02/25/17 04:50 Free T3 0.7 pg/mL (2.0-4.4) L 02/25/17 04:50 TSH 0.84 uIU/ml (0.34-5.60) 02/25/17 04:50 Total Cortisol 12.3 02/24/17 07:50 Urine Source [place] 02/27/17 15:00 Urine Color YELLOW 02/27/17 15:00 Urine Clarity CLOUDY (CLEAR) H 02/27/17 15:00 Urine pH 5.5 (4.6 - 8.0) 02/27/17 15:00 Ur Specific [place] <= 1.005 (1.005-1.030) 02/27/17 15:00 Urine Protein TRACE mg/dL (NEGATIVE) 02/27/17 15:00 Urine Glucose (UA) NEGATIVE mg/dL (NEGATIVE) 02/27/17 15:00 Urine Ketones NEGATIVE mg/dL (NEGATIVE) 02/27/17 15:00 Urine Blood LARGE (NEGATIVE) H 02/27/17 15:00 Urine Nitrate NEGATIVE (NEGATIVE) 02/27/17 15:00 Urine Bilirubin NEGATIVE (NEGATIVE) 02/27/17 15:00 Urine Urobilinogen 0.2 E.U./dL (0.2 - 1.0) 02/27/17 15:00 Ur Leukocyte Esterase LARGE (NEGATIVE) H 02/27/17 15:00 Urine RBC 10-25 /hpf (0-5) H 02/27/17 15:00 Urine WBC >100 /hpf (0-5) H 02/27/17 15:00 Ur Epithelial Cells MODERATE /lpf (FEW) 02/27/17 15:00 Urine Bacteria MODERATE /hpf (NONE SEEN) H 02/27/17 15:00 Urine Yeast MODERATE /hpf (NONE SEEN) H 02/20/17 16:15 Blood Type A POSITIVE 02/27/17 15:04 Antibody Screen NEGATIVE 02/27/17 15:04 Crossmatch See Detail 02/27/17 15:04 - Physical Exam Vitals and I&O: Vital Signs Temp 97.3 F 01/10/18 08:00 Pulse 87 03/09/17 11:45 Resp 18 03/09/17 11:00 BP 115/46 03/09/17 11:45 Pulse Ox 100 03/09/17 11:00 Intake & Output 03/08/17 03/09/17 03/09/17 18:59 06:59 18:59 Intake Total 431.965 1754.617 323.583 Output Total 480 601 Balance 043.174 3498.617 323.583 Weight (lbs) 122.186 kg 121.733 kg Intake: Intake, IV Amount 759.285 8484.617 323.583 Albumin 25% 12.5gm/50mL 50 12.5 gm In 50 ml @ 50 mls /hr IV Q8HR [facility] Rx#: [id number] D5-0.9%Ns 1,000 ml @ 75 1691.25 308.75 mls/hr IV .[id number] [facility] Rx #:[id number] Meropenem 1 gm In 100 100 Dextrose 5% 100 ml @ 100 mls/hr IV Q12H [facility] Rx#: [id number] Norepinephrine 8 mg In 161.315 101.200 Sodium Chloride 0.9% 250 ml @ Per Protocol IV TITR [facility] Rx#:[id number] Pantoprazole 80 mg In 100 185.167 14.833 Sodium Chloride 0.9% 100 ml @ 10 mls/hr IV Q10H [facility] Rx#:[id number] metroNIDAZOLE 500mg/NS 100 200 100mL 500 mg In 100 ml @ 100 mls/hr IV Q8HR [facility] Rx #:[id number] Oral 0 Tube Feeding 240 100 Other 200 50 Output: Urine 480 600 Stool 1 Other: # Bowel Movements 0 Active Medications: Current Medications Acetaminophen (Tylenol) 650 mg PO Q4HR PRN PRN Reason: Pain (Mild) Stop: 04/20/17 12:01 Last Admin: 03/06/17 03:23 Dose: 650 mg Albuterol/Ipratropium (Duoneb Neb) 3 ml HHN Q4HRT PRN PRN Reason: Wheezing Stop: 04/27/17 19:59 Last Admin: 02/28/17 03:18 Dose: 3 ml Albuterol/Ipratropium (Duoneb Neb) 3 ml HHN [id number] [facility] Stop: 04/27/17 19:59 Last Admin: 03/09/17 07:40 Dose: 3 ml Aspirin (Aspirin Chewable) 81 mg PO DAILY [facility] Stop: 05/08/17 08:59 Last Admin: 03/09/17 08:58 Dose: 81 mg Chlorhexidine Gluconate (Peridex) 15 ml MM 0800,2000 [facility] Stop: 04/28/17 19:59 Last Admin: 03/09/17 09:00 Dose: 15 ml Diltiazem HCl (Cardizem) 5 mg IVP Q4H PRN PRN Reason: HR > 120 Stop: 04/27/17 19:59 Last Admin: 02/27/17 04:59 Dose: 5 mg Docusate Sodium (Colace) 100 mg PO BID [facility] Stop: 04/20/17 16:59 Last Admin: 03/09/17 08:58 Dose: 100 mg Furosemide (Lasix) 40 mg IVP BID [facility] Stop: 05/08/17 08:59 Last Admin: 03/09/17 08:59 Dose: 40 mg Pantoprazole Sodium 80 mg/ (Sodium Chloride) 100 mls @ 10 mls/hr IV Q10H [facility] Stop: 04/20/17 08:59 Last Admin: 03/09/17 08:59 Dose: 10 mls/hr Phenylephrine HCl 10 mg/ (Sodium Chloride) 250 mls @ 0 mls/hr IV TITR PATRIA; Per Protocol PRN Reason: Protocol Stop: 04/28/17 07:59 Norepinephrine Bitartrate 8 mg (/ Sodium Chloride) 258 mls @ 0 mls/hr IV TITR [facility]RIA; Per Protocol PRN Reason: Protocol Stop: 04/28/17 09:59 Last Titration: 03/09/17 06:00 Dose: 4 mcg/min, 7.74 mls/hr Meropenem 1 gm/ Dextrose 100 mls @ 100 mls/hr IV Q12H [facility] Stop: 04/28/17 12:29 Last Admin: 03/09/17 12:16 Dose: 100 mls/hr Metronidazole (Flagyl) 500 mg in 100 mls @ 100 mls/hr IV Q8HR [facility] Stop: 05/04/17 20:59 Last Infusion: 03/09/17 06:00 Dose: Infused Dextrose/Sodium Chloride (D5-0.9%Ns) 1,000 mls @ 75 mls/hr IV .[id number] [facility] Stop: 05/06/17 16:59 Last Admin: 03/09/17 12:17 Dose: 75 mls/hr Insulin Aspart (Novolog Insulin Sliding Scale) 0 units SUBQ Q6H [facility] PRN Reason: Protocol Stop: 05/03/17 00:00 Last Admin: 03/09/17 12:18 Dose: 2 units Metoclopramide HCl (Reglan) 5 mg IVP Q6HR [facility] Stop: 05/05/17 17:59 Last Admin: 03/09/17 12:17 Dose: 5 mg Mirtazapine (Remeron) 15 mg PO HS [facility] PRN Reason: Protocol Stop: 04/26/17 20:59 Last Admin: 03/08/17 20:35 Dose: 15 mg Miscellaneous (Probiotic Screen) 1 ea MC PRN PRN PRN Reason: PROTOCOL Stop: 04/21/17 16:25 Morphine Sulfate (Morphine) 1 mg IVP Q4HR PRN PRN Reason: Severe Pain Stop: 05/04/17 14:13 Last Admin: 03/06/17 12:02 Dose: 1 mg Nitroglycerin (Nitrostat) 0.4 mg SL Q5MIN PRN PRN Reason: Chest Pain Stop: 04/20/17 12:01 Nystatin (Nystop) 100,000 units TP BID PRN PRN Reason: SKIN EXCORIATIONS Stop: 04/21/17 15:35 Last Admin: 03/08/17 06:00 Dose: 100,000 units Ondansetron HCl (Zofran) 4 mg IV Q6H PRN PRN Reason: Nausea Stop: 04/20/17 03:38 General: No acute distress HEENT: Atraumatic, EOMI Neck: Supple, JVD, +2 carotid pulse wo bruit Cardiovascular: Regular rate, Normal S1, Normal S2 Lungs: Other (coarse rhonchi) Abdomen: Bowel sounds, Soft Extremities: Edema, Other ((+3) bipedal edema) Neurological: Sensation intact Skin: no Rash Psych/Mental Status: Mood NL - Procedures Procedures: Procedures Procedure Code Date INSERT EMERGENCY AIRWAY 17006 02/19/17 INSERTION OF ENDOTRACHEAL AIRWAY INTO [place]ACHEA, VIA OPENING [id number] 02/19/17 RESPIRATORY VENTILATION, GREATER THAN 96 CONSECUTIVE HOURS [id number] 02/19/17 VENT MGMT INPAT INIT DAY 02/19/17 VENT MGMT INPAT SUBQ DAY 42046 02/19/17 Assessment/Plan - Problem List Patient Problems: All Active Problems Acute kidney failure (Acute) 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 Azotemia (Acute) R79.89 Bradycardia (Acute) R00.1 COPD (chronic obstructive pulmonary disease) (Acute) Cardiomegaly (Acute) I51.7 Chest pain (Acute) R07.9 Decubitus ulcer of buttock, 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 - Assessment Assessment: SOHAIL on CKD Acute resp failure on vent 2nd CHF, HAP, possible SOFIE, Exacerbation COPD Shock Sepsis DJD Type 2 DM GERD SOFIE Hyponatremia S/p [place], Appe anasarca Thrombocytopenia - Plan Plan: Lab - Result Diagrams 03/01/17 09:15 03/01/17 09:15 Current Medications Acetaminophen (Tylenol) 650 mg PO Q4HR PRN PRN Reason: Pain (Mild) Stop: 04/20/17 12:01 Last Admin: 02/21/17 09:54 Dose: 650 mg Acetaminophen/Hydrocodone Bitart ([place] 5mg/325mg) 1 tab PO Q6H PRN PRN Reason: PAIN Stop: 04/20/17 13:24 Albuterol/Ipratropium (Duoneb Neb) 3 ml HHN Q4HRT PRN PRN Reason: Wheezing Stop: 04/27/17 19:59 Last Admin: 02/28/17 03:18 Dose: 3 ml Albuterol/Ipratropium (Duoneb Neb) 3 ml HHN [id number] [facility] Stop: 04/27/17 19:59 Last Admin: 03/01/17 13:49 Dose: 3 ml Aspirin (Ecotrin) 81 mg PO DAILY [facility] Stop: 04/21/17 08:59 Last Admin: 03/01/17 09:30 Dose: Not Given Chlorhexidine Gluconate (Peridex) 15 ml MM 0800,2000 [facility] Stop: 04/28/17 19:59 Last Admin: 03/01/17 08:30 Dose: 15 ml Diltiazem HCl (Cardizem) 5 mg IVP Q4H PRN PRN Reason: HR > 120 Stop: 04/27/17 19:59 Last Admin: 02/27/17 04:59 Dose: 5 mg Docusate Sodium (Colace) 100 mg PO BID [facility] Stop: 04/20/17 16:59 Last Admin: 03/01/17 09:31 Dose: Not Given Fluconazole (Diflucan) 100 mg PO DAILY [facility] Stop: 03/08/17 08:59 Last Admin: 03/01/17 09:31 Dose: Not Given Furosemide (Lasix) 40 mg PO DAILY [facility] Stop: 04/21/17 08:59 Last Admin: 03/01/17 09:31 Dose: Not Given Pantoprazole Sodium 80 mg/ (Sodium Chloride) 100 mls @ 10 mls/hr IV Q10H [facility] Stop: 04/20/17 08:59 Last Admin: 03/01/17 09:31 Dose: 10 mls/hr Linezolid (Zyvox) 600 mg in 300 mls @ 300 mls/hr IV Q12HR [facility] Stop: 04/22/17 20:59 Last Infusion: 03/01/17 10:00 Dose: Infused Levofloxacin (Levaquin Pb) 250 mg in 50 mls @ 50 mls/hr IV Q24HR [facility] Stop: 04/23/17 20:59 Last Infusion: 02/28/17 21:17 Dose: Infused Phenylephrine HCl 10 mg/ (Sodium Chloride) 250 mls @ 0 mls/hr IV TITR [facility]; Per Protocol PRN Reason: Protocol Stop: 04/28/17 07:59 Norepinephrine Bitartrate 8 mg (/ Sodium Chloride) 258 mls @ 0 mls/hr IV TITR [facility]; Per Protocol PRN Reason: Protocol Stop: 04/28/17 09:59 Last Titration: 03/01/17 06:31 Dose: 6 mcg/min, 11.61 mls/hr Meropenem 1 gm/ Dextrose 100 mls @ 100 mls/hr IV Q12H [facility] Stop: 04/28/17 12:29 Last Infusion: 03/01/17 13:00 Dose: Infused Potassium Chloride/Dextrose/Sod Cl (D5-0.9ns W/Kcl 20meq) 1,000 mls @ 75 mls/ hr IV .[id number] [facility] Stop: 04/30/17 14:41 Insulin Aspart (Novolog Insulin Sliding Scale) 0 units SUBQ ACHS [facility] PRN Reason: Protocol Stop: 04/20/17 16:29 Last Admin: 03/01/17 12:01 Dose: 4 units Mirtazapine (Remeron) 15 mg PO HS [facility] PRN Reason: Protocol Stop: 04/26/17 20:59 Last Admin: 02/28/17 21:23 Dose: 15 mg Miscellaneous (Probiotic Screen) 1 ea MC PRN PRN PRN Reason: PROTOCOL Stop: 04/21/17 16:25 Morphine Sulfate (Morphine) 1 mg IVP Q3H PRN PRN Reason: Pain (Moderate) Stop: 04/20/17 01:59 Last Admin: 03/01/17 09:28 Dose: 1 mg Nitroglycerin (Nitrostat) 0.4 mg SL Q5MIN PRN PRN Reason: Chest Pain Stop: 04/20/17 12:01 Nystatin (Nystop) 100,000 units TP BID PRN PRN Reason: SKIN EXCORIATIONS Stop: 04/21/17 15:35 Last Admin: 02/21/17 11:46 Dose: 100,000 units Ondansetron HCl (Zofran) 4 mg IV Q6H PRN PRN Reason: Nausea Stop: 04/20/17 03:38 Spironolactone (Aldactone) 50 mg PO BID [facility] Stop: 04/27/17 08:59 Last Admin: 03/01/17 09:29 Dose: Not Given Lab - Result Diagrams 03/09/17 05:50 03/09/17 05:50 Na up to 133 Cr. down to 1.7, possibly baseline UOP improved to nam 2L CXR still w/ CHF, continue Lasix IVP DC spironolactone still on Levo 4 mcg f/u electorlytes, cbc, CXR DC ivf due to worsening anasarca, chf add albumin initiate NaHC03 WBC down to 14.2 Plts down to 25 etio ?sepsis, meds, DIC Nutritional Asmnt/Malnutr-PDOC - Dietary Evaluation Malnutrition Findings (Please click <Entered> for more info): Nutritional Asmnt/Malnutrition Start: 02/21/17 18: 20 Text: Status: Complete Freq: Document 02/21/17 18:21 LCELLEN (Rec: 02/21/17 18:32 LCELLEN [id number]) Nutritional Asmnt/Malnutrition Patient General Information Nutritional Screening High Risk Consult Diagnosis gastric outlet obstruction Pertinent Medical Hx/Surgical Hx HTN, OA, DM, GERD Subjective Information Pt seen sleeping at the time of visit, attempted x 2. Spoke with RN, pt consumed 50% of breakfast and only the soup of lunch today, not much appetite, no complain of N/V. Pt will be NPO from midnight for GI exam tommorrow. Current Diet Order/ Nutrition Support no added salt 4gm, CCHO, no eggs, banana and cereal in morning Pertinent Medications colace, lasix, novolog, levaquin, piperacillin Pertinent Labs 02/20 Na 137, K 4.5, Cl 104, BUN 55, Cr 1.6, Glucose 137, POC 126-199 since admit, Ca 8. 3 Nutritional Hx/Data Height 1.57 m Height (Calculated Centimeters) 157.5 Current Weight (lbs) 97.023 kg Weight (Calculated Kilograms) 97.0 Weight (Calculated Grams) 50993.4 Rea Body Weight 110 % Rea Body Weight 194 Body Mass Index (BMI) 39.1 Weight Status Obese GI Symptoms GI Symptoms None Last BM none Difficult in: None Skin Integrity/Comment: multiple maceration, abrasion to right/left medial thigh Current %PO Poor (25-49%) Estimated Nutritional Goals BEE in Kcals: Adj wt of IBW Calories/Kcals/Kg 27-32 Kcals Calculated Protein: Adj wt of IBW Protein g/k-1.2 Protein Calculated 62-74 Fluid: ml Nutritional Problem 1. Problem Problem inadequate PO intake Etiology poor appetite Signs/Symptoms: PO intake 25-50% Malnutrition Alert Protein-Calorie Malnutrition N/A Is there a minimum of two criteria No selected? Query Text:Check all the applicable criteria. A minimum of two criteria are recommended for diagnosis of either severe or non-severe malnutrition. Intervention/Recommendation Comments 1. Continue with current diet as ordered. 2. Monitor PO intake, GI symptons, wt, labs and skin integrity 3. F/U as high risk in 2-3 days, 02/23-02/24 Expected Outcomes/Goals Expected Outcomes/Goals 1. PO intake to meet at least 75% of nutritional needs. 2. Wt stability, skin to remain intact, labs to improve
[2017-03-09] MEDS: Morphine Sulfate 2 mg/mL 1mL Syr IVP PRN (16:44)
--- NOTE | 2017-03-09 23:55 | Infectious Disease Prog Note ---
Infectious Disease Subjective - Review of Systems Service Date: 03/09/17 Subjective: Remains on vent intubated orally. on the ventilator support. Infectious Disease Objective - Results Result Diagrams: 03/10/17 06:10 03/10/17 06:10 Recent Labs: Laboratory Last Values WBC 14.2 Th/cmm (4.8-10.8) H D 03/09/17 05:50 RBC 2.72 Mil/cmm (3.80-5.20) L 03/09/17 05:50 Hgb 8.1 gm/dL (12-16) L 03/09/17 05:50 Hct 23.4 % (41.0-60) L 03/09/17 05:50 MCV 86.2 fl (81-100) 03/09/17 05:50 MCH 29.7 pg (27.0-31.0) 03/09/17 05:50 MCHC Differential 34.5 pg (28.0-36.0) 03/09/17 05:50 RDW 13.3 % (11.5-20.0) 03/09/17 05:50 Plt Count 25 Th/cmm (150-400) L* 03/09/17 05:50 MPV 9.2 fl 03/09/17 05:50 Neutrophils % 77.0 % (40.0-80.0) 03/09/17 05:50 Band Neutrophils % 5 % (0-10) 03/06/17 06:00 Lymphocytes % 12.4 % (20.0-50.0) L 03/09/17 05:50 Monocytes % 5.2 % (2.0-10.0) 03/09/17 05:50 Eosinophils % 5.4 % (0.0-5.0) H 03/09/17 05:50 Basophils % 0.0 % (0.0-2.0) 03/09/17 05:50 Neutrophils (Manual) 85 % (40-80) H 03/06/17 06:00 Lymphocytes 4 % (20-50) L 03/06/17 06:00 Monocytes 3 % (2-10) 03/06/17 06:00 Eosinophils 3 % (0-5) 03/06/17 06:00 Metamyelocytes 1 % (0-0) H 02/18/17 23:35 Hypochromia 1+ 02/18/17 23:35 Platelet Estimate DECREASED PLATELETS (NORMAL) 03/06/17 06:00 Platelet Morphology (NORMAL) 03/04/17 08:00 PT 13.9 SECONDS (9.5-11.5) H 03/01/17 09:15 INR 1.32 (0.5-1.4) 03/01/17 09:15 PTT (Actin FS) 53.1 SECONDS (26.0-38.0) H 03/01/17 09:15 Specimen Source Arterial 03/09/17 09:45 Sample Site Right Radial 03/09/17 09:45 pH 7.36 (7.35-7.45) 03/09/17 09:45 pCO2 36.0 mmHg (35.0-45.0) 03/09/17 09:45 pO2 120.0 mmHg (80.0-100.0) H 03/09/17 09:45 HCO3 21.4 mEq/L (20.0-26.0) 03/09/17 09:45 Base Excess -4.6 mEq/L (-3.0-3.0) L 03/09/17 09:45 O2 Saturation 99.0 % (92.0-100.0) 03/09/17 09:45 Jorje Test YES 03/09/17 09:45 Vent Rate 12 03/09/17 09:45 Inspired O2 40 03/09/17 09:45 Tidal Volume 550 03/09/17 09:45 PEEP 5 03/09/17 09:45 Pressure (ins/psv/peep) 15 03/09/17 09:45 Critical Value E.HERNANDEZ 03/09/17 09:45 Sodium 133 mEq/L (136-145) L 03/09/17 05:50 Potassium 4.4 mEq/L (3.5-5.1) 03/09/17 05:50 Chloride 107 mEq/L (98-107) 03/09/17 05:50 Carbon Dioxide 18.9 mEq/L (21.0-31.0) L 03/09/17 05:50 Anion Gap 11.5 (7.0-16.0) 03/09/17 05:50 BUN 49 mg/dL (7-25) H 03/09/17 05:50 Creatinine 1.7 mg/dL (0.6-1.2) H 03/09/17 05:50 Est GFR ( Amer) 38.3 ml/min (>90) 03/09/17 05:50 Est GFR (Non-Af Amer) 31.7 ml/min 03/09/17 05:50 BUN/Creatinine Ratio 28.8 03/09/17 05:50 Glucose 159 mg/dL (70-105) H 03/09/17 05:50 POC Glucose 162 MG/DL (70 - 105) H 03/09/17 23:15 Hemoglobin A1c % 5.8 % (4.0-6.0) 02/22/17 10:38 Whole Bld Lactic Acid 2.40 mmol/L (0.60-1.99) H* 02/27/17 15:04 Calcium 7.8 mg/dL (8.6-10.3) L 03/09/17 05:50 Phosphorus 2.5 mg/dL (2.5-5.0) 03/01/17 09:15 Magnesium 2.1 mg/dL (1.9-2.7) 03/01/17 09:15 Total Bilirubin 0.7 mg/dL (0.3-1.0) 03/08/17 05:25 Direct Bilirubin 0.09 mg/dL (0.0-0.2) 02/18/17 23:35 AST 10 U/L (13-39) L 03/08/17 05:25 ALT < 3 U/L (7-52) L 03/08/17 05:25 Alkaline Phosphatase 58 U/L (34-104) 03/08/17 05:25 Ammonia 38 umol/L (16-53) 03/01/17 17:28 B-Natriuretic Peptide 158.0 pg/mL (5.0-100.0) H 03/04/17 15:39 Total Protein 4.7 gm/dL (6.0-8.3) L 03/08/17 05:25 Albumin 2.9 gm/dL (3.7-5.3) L 03/08/17 05:25 Globulin 1.8 gm/dL 03/08/17 05:25 Albumin/Globulin Ratio 1.6 (1.0-1.8) 03/08/17 05:25 Amylase 36 U/L (29-103) 02/18/17 23:35 Lipase 10 U/L (11-82) L 02/18/17 23:35 Vitamin B12 860 pg/mL (232-1245) 02/26/17 04:45 Free T4 1.04 ng/dL (0.82-1.77) 02/25/17 04:50 Free T3 0.7 pg/mL (2.0-4.4) L 02/25/17 04:50 TSH 0.84 uIU/ml (0.34-5.60) 02/25/17 04:50 Total Cortisol 12.3 02/24/17 07:50 Urine Source [place] 02/27/17 15:00 Urine Color YELLOW 02/27/17 15:00 Urine Clarity CLOUDY (CLEAR) H 02/27/17 15:00 Urine pH 5.5 (4.6 - 8.0) 02/27/17 15:00 Ur Specific [place] <= 1.005 (1.005-1.030) 02/27/17 15:00 Urine Protein TRACE mg/dL (NEGATIVE) 02/27/17 15:00 Urine Glucose (UA) NEGATIVE mg/dL (NEGATIVE) 02/27/17 15:00 Urine Ketones NEGATIVE mg/dL (NEGATIVE) 02/27/17 15:00 Urine Blood LARGE (NEGATIVE) H 02/27/17 15:00 Urine Nitrate NEGATIVE (NEGATIVE) 02/27/17 15:00 Urine Bilirubin NEGATIVE (NEGATIVE) 02/27/17 15:00 Urine Urobilinogen 0.2 E.U./dL (0.2 - 1.0) 02/27/17 15:00 Ur Leukocyte Esterase LARGE (NEGATIVE) H 02/27/17 15:00 Urine RBC 10-25 /hpf (0-5) H 02/27/17 15:00 Urine WBC >100 /hpf (0-5) H 02/27/17 15:00 Ur Epithelial Cells MODERATE /lpf (FEW) 02/27/17 15:00 Urine Bacteria MODERATE /hpf (NONE SEEN) H 02/27/17 15:00 Urine Yeast MODERATE /hpf (NONE SEEN) H 02/20/17 16:15 Blood Type A POSITIVE 02/27/17 15:04 Antibody Screen NEGATIVE 02/27/17 15:04 Crossmatch See Detail 02/27/17 15:04 - Physical Exam Vitals and I&O: Vital Signs Temp 98.2 F 03/09/17 20:00 Pulse 82 03/09/17 23:26 Resp 17 03/09/17 23:00 BP 108/45 03/09/17 23:15 Pulse Ox 100 03/09/17 23:26 Intake & Output 03/09/17 03/09/17 03/10/17 06:59 18:59 06:59 Intake Total 2427.617 773.372 200 Output Total 601 500 Balance 1826.617 273.372 200 Weight (lbs) 121.733 kg 121.835 kg Intake: Intake, IV Amount 2277.617 593.372 200 D5-0.9%Ns 1,000 ml @ 75 1691.25 308.75 mls/hr IV .[id number] [facility] Rx #:[id number] Meropenem 1 gm In 100 100 Dextrose 5% 100 ml @ 100 mls/hr IV Q12H [facility] Rx#: [id number] Norepinephrine 8 mg In 101.200 69.789 Sodium Chloride 0.9% 250 ml @ Per Protocol IV TITR [facility] Rx#:[id number] Pantoprazole 80 mg In 185.167 14.833 100 Sodium Chloride 0.9% 100 ml @ 10 mls/hr IV Q10H [facility] Rx#:[id number] metroNIDAZOLE 500mg/NS 200 100 100 100mL 500 mg In 100 ml @ 100 mls/hr IV Q8HR [facility] Rx #:[id number] Oral 0 Tube Feeding 100 180 Other 50 Output: Urine 600 500 Stool 1 Other: # Bowel Movements 1 Stool Characteristics Liquid Active Medications: Current Medications Acetaminophen (Tylenol) 650 mg PO Q4HR PRN PRN Reason: Pain (Mild) Stop: 04/20/17 12:01 Last Admin: 03/06/17 03:23 Dose: 650 mg Albuterol/Ipratropium (Duoneb Neb) 3 ml HHN Q4HRT PRN PRN Reason: Wheezing Stop: 04/27/17 19:59 Last Admin: 02/28/17 03:18 Dose: 3 ml Albuterol/Ipratropium (Duoneb Neb) 3 ml HHN [id number] [facility] Stop: 04/27/17 19:59 Last Admin: 03/09/17 19:45 Dose: 3 ml Aspirin (Aspirin Chewable) 81 mg PO DAILY [facility] Stop: 05/08/17 08:59 Last Admin: 03/09/17 08:58 Dose: 81 mg Chlorhexidine Gluconate (Peridex) 15 ml MM 0800,1999 [facility] Stop: 04/28/17 19:59 Last Admin: 03/09/17 19:34 Dose: 15 ml Diltiazem HCl (Cardizem) 5 mg IVP Q4H PRN PRN Reason: HR > 120 Stop: 04/27/17 19:59 Last Admin: 02/27/17 04:59 Dose: 5 mg Docusate Sodium (Colace) 100 mg PO BID [facility] Stop: 04/20/17 16:59 Last Admin: 03/09/17 16:44 Dose: 100 mg Furosemide (Lasix) 40 mg IVP BID [facility] Stop: 05/08/17 08:59 Last Admin: 03/09/17 16:44 Dose: 40 mg Pantoprazole Sodium 80 mg/ (Sodium Chloride) 100 mls @ 10 mls/hr IV Q10H [facility] Stop: 04/20/17 08:59 Last Admin: 03/09/17 19:35 Dose: 10 mls/hr Phenylephrine HCl 10 mg/ (Sodium Chloride) 250 mls @ 0 mls/hr IV TITR [facility]; Per Protocol PRN Reason: Protocol Stop: 04/28/17 07:59 Norepinephrine Bitartrate 8 mg (/ Sodium Chloride) 258 mls @ 0 mls/hr IV TITR [facility]; Per Protocol PRN Reason: Protocol Stop: 04/28/17 09:59 Last Titration: 03/09/17 15:01 Dose: 2 mcg/min, 3.87 mls/hr Meropenem 1 gm/ Dextrose 100 mls @ 100 mls/hr IV Q12H [facility] Stop: 04/28/17 12:29 Last Infusion: 03/09/17 13:15 Dose: Infused Metronidazole (Flagyl) 500 mg in 100 mls @ 100 mls/hr IV Q8HR [facility] Stop: 05/04/17 20:59 Last Infusion: 03/09/17 21:35 Dose: Infused Insulin Aspart (Novolog Insulin Sliding Scale) 0 units SUBQ Q6H [facility] PRN Reason: Protocol Stop: 05/03/17 00:00 Last Admin: 03/09/17 23:20 Dose: 2 units Metoclopramide HCl (Reglan) 5 mg IVP Q6HR [facility] Stop: 05/05/17 17:59 Last Admin: 03/09/17 23:21 Dose: 5 mg Mirtazapine (Remeron) 15 mg PO HS [facility] PRN Reason: Protocol Stop: 04/26/17 20:59 Last Admin: 03/09/17 20:32 Dose: 15 mg Miscellaneous (Probiotic Screen) 1 ea MC PRN PRN PRN Reason: PROTOCOL Stop: 04/21/17 16:25 Morphine Sulfate (Morphine) 1 mg IVP Q4HR PRN PRN Reason: Severe Pain Stop: 05/04/17 14:13 Last Admin: 03/09/17 16:44 Dose: 1 mg Nitroglycerin (Nitrostat) 0.4 mg SL Q5MIN PRN PRN Reason: Chest Pain Stop: 04/20/17 12:01 Nystatin (Nystop) 100,000 units TP BID PRN PRN Reason: SKIN EXCORIATIONS Stop: 04/21/17 15:35 Last Admin: 03/08/17 06:00 Dose: 100,000 units Ondansetron HCl (Zofran) 4 mg IV Q6H PRN PRN Reason: Nausea Stop: 04/20/17 03:38 General: no acute distress, well developed, well nourished HEENT: atraumatic, normocephalic, PERRLA, EOMI, moist mucous membrane Neck: supple Cardiovascular: S1S2, regular Lungs: clear to auscultation bilaterally, clear to percussion Abdomen: soft, no tender, no distended Extremities: no cyanosis, no clubbing, no edema Neurological: awake, alert - Procedures Procedures: Procedures Procedure Code Date INSERT EMERGENCY AIRWAY 30964 02/19/17 INSERTION OF ENDOTRACHEAL AIRWAY INTO [place], VIA OPENING [id number] 02/19/17 RESPIRATORY VENTILATION, GREATER THAN 96 CONSECUTIVE HOURS [id number] 02/19/17 VENT MGMT INPAT INIT DAY 02/19/17 VENT MGMT INPAT SUBQ DAY 02/19/17 Infectious Disease Assmt/Plan - Problem List Patient Problems: All Active Problems Acute kidney failure (Acute) 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 Sepsis. 2. Pneumonia. 3. UTI, Candiduria. 4. Renal failure. 5. Hypotension, improving 6. VDRF. 7. Thrombocytopenia - Plan Plan: continue meropenem. Continue flagyl. Nutritional Asmnt/Malnutr-PDOC - Dietary Evaluation Malnutrition Findings (Please click <Entered> for more info): Nutritional Asmnt/Malnutrition Start: 02/21/17 18: 20 Text: Status: Complete Freq: Document 02/21/17 18:21 LCANCELMOG (Rec: 02/21/17 18:32 LCANCELMOG [place] [id number]) Nutritional Asmnt/Malnutrition Patient General Information Nutritional Screening High Risk Consult Diagnosis gastric outlet obstruction Pertinent Medical Hx/Surgical Hx HTN, OA, DM, GERD Subjective Information Pt seen sleeping at the time of visit, attempted x 2. Spoke with RN, pt consumed 50% of breakfast and only the soup of lunch today, not much appetite, no complain of N/V. Pt will be NPO from midnight for GI exam tommorrow. Current Diet Order/ Nutrition Support no added salt 4gm, CCHO, no eggs, banana and cereal in morning Pertinent Medications colace, lasix, novolog, levaquin, piperacillin Pertinent Labs 02/20 Na 137, K 4.5, Cl 104, BUN 55, Cr 1.6, Glucose 137, POC 126-199 since admit, Ca 8. 3 Nutritional Hx/Data Height 1.57 m Height (Calculated Centimeters) 157.5 Current Weight (lbs) 97.023 kg Weight (Calculated Kilograms) 97.0 Weight (Calculated Grams) 56880.4 [place] Body Weight 110 % [place] Body Weight 194 Body Mass Index (BMI) 39.1 Weight Status Obese GI Symptoms GI Symptoms None Last BM none Difficult in: None Skin Integrity/Comment: multiple maceration, abrasion to right/left medial thigh Current %PO Poor (25-49%) Estimated Nutritional Goals BEE in Kcals: Adj wt of IBW Calories/Kcals/Kg 27-32 Kcals Calculated Protein: Adj wt of IBW Protein g/k-1.2 Protein Calculated 62-74 Fluid: ml Nutritional Problem 1. Problem Problem inadequate PO intake Etiology poor appetite Signs/Symptoms: PO intake 25-50% Malnutrition Alert Protein-Calorie Malnutrition N/A Is there a minimum of two criteria No selected? Query Text:Check all the applicable criteria. A minimum of two criteria are recommended for diagnosis of either severe or non-severe malnutrition. Intervention/Recommendation Comments 1. Continue with current diet as ordered. 2. Monitor PO intake, GI symptons, wt, labs and skin integrity 3. F/U as high risk in 2-3 days, 02/23-02/24 Expected Outcomes/Goals Expected Outcomes/Goals 1. PO intake to meet at least 75% of nutritional needs. 2. Wt stability, skin to remain intact, labs to improve
[2017-03-10] MEDS: Morphine Sulfate 2 mg/mL 1mL Syr IVP PRN (02:50)
[2017-03-10] MEDS: metroNIDAZOLE 500mg/NS 100mL 500 MG/100 ML BAG IV SCH ×3 (05:06→21:15)
[2017-03-10] MEDS: Pantoprazole 80 MG in Sodium Chloride 0.9% 100 ML IV SCH ×2 (05:07→16:52)
[2017-03-10] MEDS: Metoclopramide 5 mg/mL 2mL Vial IVP SCH ×3 (05:08→18:00)
[2017-03-10] MEDS: INSULIN ASPART SLIDING SCALE 100 UNITS/ML UNIT SUBQ SCH ×3 (05:33→18:00)
[2017-03-10 07:02] LABS: % BASOPHILS 0.3 % (0.0-2.0); % EOSINOPHILS 5.3 % (0.0-5.0); % LYMPHOCYTES 9.4 % (20.0-50.0); % MONOCYTES 6.3 % (2.0-10.0); % NEUTROPHILS 78.7 % (40.0-80.0); EOSINOPHILE ABSOLUTE 0.7 Th/cmm (0.1-0.4); HEMATOCRIT 23.3 % (41.0-60); LYMPHOCYTE ABSOLUTE 1.2 Th/cmm (1.5-3.0); MEAN CELL VOLUME 86.9 fl (81-100); MEAN CORPUSCULAR HEMOGLOBIN 28.8 pg (27.0-31.0); MEAN CORPUSCULAR HGB CONC 33.1 pg (28.0-36.0); MEAN PLATELET VOLUME 9.6 fl; MONOCYTE ABSOLUTE 0.8 Th/cmm (0.3-1.0); NEUTROPHILE ABSOLUTE 10.4 Th/cmm (1.8-8.0); RED BLOOD COUNT 2.68 Mil/cmm (3.80-5.20); RED CELL DISTRIBUTION WIDTH 13.7 % (11.5-20.0)
[2017-03-10 07:17] LABS: HEMOGLOBIN 7.7 gm/dL (12-16); PLATELET COUNT 26 Th/cmm (150-400); WHITE BLOOD COUNT 13.1 Th/cmm (4.8-10.8)
[2017-03-10] MEDS: Albuterol/Ipratropium Neb 3 ML AERS HHN SCH ×3 (07:30→19:05)
[2017-03-10 07:32] LABS: ANION GAP 11.7 (7.0-16.0); CALCIUM SERUM 7.6 mg/dL (8.6-10.3); CARBON DIOXIDE 18.5 mEq/L (21.0-31.0); CREATININE - SERUM 1.6 mg/dL (0.6-1.2); GFR AFRICAN-AMERICAN 41.1 ml/min (>90); POTASSIUM SERUM 4.2 mEq/L (3.5-5.1)
--- NOTE | 2017-03-10 08:37 | General Progress Note ---
Subjective - Review of Systems Events since last encounter: remains on vent Objective - Results Result Diagrams: 03/10/17 06:10 03/10/17 06:10 Recent Labs: Laboratory Last Values WBC 13.1 Th/cmm (4.8-10.8) H 03/10/17 06:10 RBC 2.68 Mil/cmm (3.80-5.20) L 03/10/17 06:10 Hgb 7.7 gm/dL (12-16) L* 03/10/17 06:10 Hct 23.3 % (41.0-60) L 03/10/17 06:10 MCV 86.9 fl (81-100) 03/10/17 06:10 MCH 28.8 pg (27.0-31.0) 03/10/17 06:10 MCHC Differential 33.1 pg (28.0-36.0) 03/10/17 06:10 RDW 13.7 % (11.5-20.0) 03/10/17 06:10 Plt Count 26 Th/cmm (150-400) L* 03/10/17 06:10 MPV 9.6 fl 03/10/17 06:10 Neutrophils % 78.7 % (40.0-80.0) 03/10/17 06:10 Band Neutrophils % 5 % (0-10) 03/06/17 06:00 Lymphocytes % 9.4 % (20.0-50.0) L 03/10/17 06:10 Monocytes % 6.3 % (2.0-10.0) 03/10/17 06:10 Eosinophils % 5.3 % (0.0-5.0) H 03/10/17 06:10 Basophils % 0.3 % (0.0-2.0) 03/10/17 06:10 Neutrophils (Manual) 85 % (40-80) H 03/06/17 06:00 Lymphocytes 4 % (20-50) L 03/06/17 06:00 Monocytes 3 % (2-10) 03/06/17 06:00 Eosinophils 3 % (0-5) 03/06/17 06:00 Metamyelocytes 1 % (0-0) H 02/18/17 23:35 Hypochromia 1+ 02/18/17 23:35 Platelet Estimate DECREASED PLATELETS (NORMAL) 03/06/17 06:00 Platelet Morphology (NORMAL) 03/04/17 08:00 PT 13.9 SECONDS (9.5-11.5) H 03/01/17 09:15 INR 1.32 (0.5-1.4) 03/01/17 09:15 PTT (Actin FS) 53.1 SECONDS (26.0-38.0) H 03/01/17 09:15 Specimen Source Arterial 03/09/17 09:45 Sample Site Right Radial 03/09/17 09:45 pH 7.36 (7.35-7.45) 03/09/17 09:45 pCO2 36.0 mmHg (35.0-45.0) 03/09/17 09:45 pO2 120.0 mmHg (80.0-100.0) H 03/09/17 09:45 HCO3 21.4 mEq/L (20.0-26.0) 03/09/17 09:45 Base Excess -4.6 mEq/L (-3.0-3.0) L 03/09/17 09:45 O2 Saturation 99.0 % (92.0-100.0) 03/09/17 09:45 Jorje Test YES 03/09/17 09:45 Vent Rate 12 03/09/17 09:45 Inspired O2 40 03/09/17 09:45 Tidal Volume 550 03/09/17 09:45 PEEP 5 03/09/17 09:45 Pressure (ins/psv/peep) 15 03/09/17 09:45 Critical Value E.HERNANDEZ 03/09/17 09:45 Sodium 135 mEq/L (136-145) L 03/10/17 06:10 Potassium 4.2 mEq/L (3.5-5.1) 03/10/17 06:10 Chloride 109 mEq/L (98-107) H 03/10/17 06:10 Carbon Dioxide 18.5 mEq/L (21.0-31.0) L 03/10/17 06:10 Anion Gap 11.7 (7.0-16.0) 03/10/17 06:10 BUN 49 mg/dL (7-25) H 03/10/17 06:10 Creatinine 1.6 mg/dL (0.6-1.2) H 03/10/17 06:10 Est GFR ( Amer) 41.1 ml/min (>90) 03/10/17 06:10 Est GFR (Non-Af Amer) 34.0 ml/min 03/10/17 06:10 BUN/Creatinine Ratio 30.6 03/10/17 06:10 Glucose 150 mg/dL (70-105) H 03/10/17 06:10 POC Glucose 150 MG/DL (70 - 105) H 03/10/17 05:28 Hemoglobin A1c % 5.8 % (4.0-6.0) 02/22/17 10:38 Whole Bld Lactic Acid 2.40 mmol/L (0.60-1.99) H* 02/27/17 15:04 Calcium 7.6 mg/dL (8.6-10.3) L 03/10/17 06:10 Phosphorus 2.5 mg/dL (2.5-5.0) 03/01/17 09:15 Magnesium 2.1 mg/dL (1.9-2.7) 03/01/17 09:15 Total Bilirubin 0.7 mg/dL (0.3-1.0) 03/08/17 05:25 Direct Bilirubin 0.09 mg/dL (0.0-0.2) 02/18/17 23:35 AST 10 U/L (13-39) L 03/08/17 05:25 ALT < 3 U/L (7-52) L 03/08/17 05:25 Alkaline Phosphatase 58 U/L (34-104) 03/08/17 05:25 Ammonia 38 umol/L (16-53) 03/01/17 17:28 B-Natriuretic Peptide 158.0 pg/mL (5.0-100.0) H 03/04/17 15:39 Total Protein 4.7 gm/dL (6.0-8.3) L 03/08/17 05:25 Albumin 2.9 gm/dL (3.7-5.3) L 03/08/17 05:25 Globulin 1.8 gm/dL 03/08/17 05:25 Albumin/Globulin Ratio 1.6 (1.0-1.8) 03/08/17 05:25 Amylase 36 U/L (29-103) 02/18/17 23:35 Lipase 10 U/L (11-82) L 02/18/17 23:35 Vitamin B12 860 pg/mL (232-1245) 02/26/17 04:45 Free T4 1.04 ng/dL (0.82-1.77) 02/25/17 04:50 Free T3 0.7 pg/mL (2.0-4.4) L 02/25/17 04:50 TSH 0.84 uIU/ml (0.34-5.60) 02/25/17 04:50 Total Cortisol 12.3 02/24/17 07:50 Urine Source [place] 02/27/17 15:00 Urine Color YELLOW 02/27/17 15:00 Urine Clarity CLOUDY (CLEAR) H 02/27/17 15:00 Urine pH 5.5 (4.6 - 8.0) 02/27/17 15:00 Ur Specific [place] <= 1.005 (1.005-1.030) 02/27/17 15:00 Urine Protein TRACE mg/dL (NEGATIVE) 02/27/17 15:00 Urine Glucose (UA) NEGATIVE mg/dL (NEGATIVE) 02/27/17 15:00 Urine Ketones NEGATIVE mg/dL (NEGATIVE) 02/27/17 15:00 Urine Blood LARGE (NEGATIVE) H 02/27/17 15:00 Urine Nitrate NEGATIVE (NEGATIVE) 02/27/17 15:00 Urine Bilirubin NEGATIVE (NEGATIVE) 02/27/17 15:00 Urine Urobilinogen 0.2 E.U./dL (0.2 - 1.0) 02/27/17 15:00 Ur Leukocyte Esterase LARGE (NEGATIVE) H 02/27/17 15:00 Urine RBC 10-25 /hpf (0-5) H 02/27/17 15:00 Urine WBC >100 /hpf (0-5) H 02/27/17 15:00 Ur Epithelial Cells MODERATE /lpf (FEW) 02/27/17 15:00 Urine Bacteria MODERATE /hpf (NONE SEEN) H 02/27/17 15:00 Urine Yeast MODERATE /hpf (NONE SEEN) H 02/20/17 16:15 Blood Type A POSITIVE 02/27/17 15:04 Antibody Screen NEGATIVE 02/27/17 15:04 Crossmatch See Detail 02/27/17 15:04 - Physical Exam Vitals and I&O: Vital Signs Temp 97.5 F 03/10/17 04:00 Pulse 81 03/10/17 07:30 Resp 18 03/10/17 06:55 BP 101/50 03/10/17 06:55 Pulse Ox 98 03/10/17 07:30 Intake & Output 03/09/17 03/10/17 03/10/17 18:59 06:59 18:59 Intake Total 773.372 842.151 Output Total 500 400 Balance 273.372 442.151 Weight (lbs) 121.835 kg 121.835 kg Intake: Intake, IV Amount 593.372 562.151 D5-0.9%Ns 1,000 ml @ 75 308.75 mls/hr IV .[id number] [facility] Rx #:[id number] Meropenem 1 gm In 100 100 Dextrose 5% 100 ml @ 100 mls/hr IV Q12H [facility] Rx#: [id number] Norepinephrine 8 mg In 69.789 57.985 Sodium Chloride 0.9% 250 ml @ Per Protocol IV TITR PATRIA Rx#:[id number] Pantoprazole 80 mg In 14.833 204.166 Sodium Chloride 0.9% 100 ml @ 10 mls/hr IV Q10H [facility] Rx#:[id number] metroNIDAZOLE 500mg/NS 100 200 100mL 500 mg In 100 ml @ 100 mls/hr IV Q8HR [facility] Rx #:[id number] Tube Feeding 180 180 Other 100 Output: Urine 500 400 Other: # Bowel Movements 1 1 Stool Characteristics Liquid Liquid Brown Active Medications: Current Medications Acetaminophen (Tylenol) 650 mg PO Q4HR PRN PRN Reason: Pain (Mild) Stop: 04/20/17 12:01 Last Admin: 03/06/17 03:23 Dose: 650 mg Albuterol/Ipratropium (Duoneb Neb) 3 ml HHN Q4HRT PRN PRN Reason: Wheezing Stop: 04/27/17 19:59 Last Admin: 02/28/17 03:18 Dose: 3 ml Albuterol/Ipratropium (Duoneb Neb) 3 ml [facility] [id number] [facility] Stop: 04/27/17 19:59 Last Admin: 03/10/17 07:30 Dose: 3 ml Aspirin (Aspirin Chewable) 81 mg PO DAILY [facility] Stop: 05/08/17 08:59 Last Admin: 03/09/17 08:58 Dose: 81 mg Chlorhexidine Gluconate (Peridex) 15 ml MM 799,1999 [facility] Stop: 04/28/17 19:59 Last Admin: 03/09/17 19:34 Dose: 15 ml Diltiazem HCl (Cardizem) 5 mg IVP Q4H PRN PRN Reason: HR > 120 Stop: 04/27/17 19:59 Last Admin: 02/27/17 04:59 Dose: 5 mg Docusate Sodium (Colace) 100 mg PO BID [facility] Stop: 04/20/17 16:59 Last Admin: 03/09/17 16:44 Dose: 100 mg Furosemide (Lasix) 40 mg IVP BID [facility] Stop: 05/08/17 08:59 Last Admin: 03/09/17 16:44 Dose: 40 mg Pantoprazole Sodium 80 mg/ (Sodium Chloride) 100 mls @ 10 mls/hr IV Q10H [facility] Stop: 04/20/17 08:59 Last Infusion: 03/10/17 06:00 Dose: 10 mls/hr Phenylephrine HCl 10 mg/ (Sodium Chloride) 250 mls @ 0 mls/hr IV TITR PATRIA; Per Protocol PRN Reason: Protocol Stop: 04/28/17 07:59 Norepinephrine Bitartrate 8 mg (/ Sodium Chloride) 258 mls @ 0 mls/hr IV TITR PATRIA; Per Protocol PRN Reason: Protocol Stop: 04/28/17 09:59 Last Titration: 03/10/17 06:00 Dose: 2 mcg/min, 3.87 mls/hr Meropenem 1 gm/ Dextrose 100 mls @ 100 mls/hr IV Q12H [facility] Stop: 04/28/17 12:29 Last Infusion: 03/10/17 01:05 Dose: Infused Metronidazole (Flagyl) 500 mg in 100 mls @ 100 mls/hr IV Q8HR [facility] Stop: 05/04/17 20:59 Last Infusion: 03/10/17 06:06 Dose: Infused Insulin Aspart (Novolog Insulin Sliding Scale) 0 units SUBQ Q6H [facility] PRN Reason: Protocol Stop: 05/03/17 00:00 Last Admin: 03/10/17 05:33 Dose: Not Given Metoclopramide HCl (Reglan) 5 mg IVP Q6HR [facility] Stop: 05/05/17 17:59 Last Admin: 03/10/17 05:08 Dose: 5 mg Mirtazapine (Remeron) 15 mg PO HS PATRIA PRN Reason: Protocol Stop: 04/26/17 20:59 Last Admin: 03/09/17 20:32 Dose: 15 mg Miscellaneous (Probiotic Screen) 1 ea MC PRN PRN PRN Reason: PROTOCOL Stop: 04/21/17 16:25 Morphine Sulfate (Morphine) 1 mg IVP Q4HR PRN PRN Reason: Severe Pain Stop: 05/04/17 14:13 Last Admin: 03/10/17 02:50 Dose: 1 mg Nitroglycerin (Nitrostat) 0.4 mg SL Q5MIN PRN PRN Reason: Chest Pain Stop: 04/20/17 12:01 Nystatin (Nystop) 100,000 units TP BID PRN PRN Reason: SKIN EXCORIATIONS Stop: 04/21/17 15:35 Last Admin: 03/08/17 06:00 Dose: 100,000 units Ondansetron HCl (Zofran) 4 mg IV Q6H PRN PRN Reason: Nausea Stop: 04/20/17 03:38 General: No acute distress HEENT: Atraumatic, EOMI Neck: Supple, JVD, +2 carotid pulse wo bruit Cardiovascular: Regular rate, Normal S1, Normal S2 Lungs: Other (coarse rhonchi) Abdomen: Bowel sounds, Soft Extremities: Edema, Other ((+3) bipedal edema) Neurological: Sensation intact Skin: no Rash Psych/Mental Status: Mood NL - Procedures Procedures: Procedures Procedure Code Date INSERT EMERGENCY AIRWAY 32423 02/19/17 INSERTION OF ENDOTRACHEAL AIRWAY INTO [place]ACHEA, VIA OPENING [id number] 02/19/17 RESPIRATORY VENTILATION, GREATER THAN 96 CONSECUTIVE HOURS [id number] 02/19/17 VENT MGMT INPAT INIT DAY 12951 02/19/17 VENT MGMT INPAT SUBQ DAY 84899 02/19/17 Assessment/Plan - Problem List Patient Problems: All Active Problems Acute kidney failure (Acute) 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 Azotemia (Acute) R79.89 Bradycardia (Acute) R00.1 COPD (chronic obstructive pulmonary disease) (Acute) Cardiomegaly (Acute) I51.7 Chest pain (Acute) R07.9 Decubitus ulcer of buttock, 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 Nutritional Asmnt/Malnutr-PDOC - Dietary Evaluation Malnutrition Findings (Please click <Entered> for more info): Nutritional Asmnt/Malnutrition Start: 02/21/17 18: 20 Text: Status: Complete Freq: Document 02/21/17 18:21 HEN (Rec: 02/21/17 18:32 HEN [id number]) Nutritional Asmnt/Malnutrition Patient General Information Nutritional Screening High Risk Consult Diagnosis gastric outlet obstruction Pertinent Medical Hx/Surgical Hx HTN, OA, DM, GERD Subjective Information Pt seen sleeping at the time of visit, attempted x 2. Spoke with RN, pt consumed 50% of breakfast and only the soup of lunch today, not much appetite, no complain of N/V. Pt will be NPO from midnight for GI exam tommorrow. Current Diet Order/ Nutrition Support no added salt 4gm, CCHO, no eggs, banana and cereal in morning Pertinent Medications colace, lasix, novolog, levaquin, piperacillin Pertinent Labs 02/20 Na 137, K 4.5, Cl 104, BUN 55, Cr 1.6, Glucose 137, POC 126-199 since admit, Ca 8. 3 Nutritional Hx/Data Height 1.57 m Height (Calculated Centimeters) 157.5 Current Weight (lbs) 97.023 kg Weight (Calculated Kilograms) 97.0 Weight (Calculated Grams) 95176.4 [place] Body Weight 110 % [place] Body Weight 194 Body Mass Index (BMI) 39.1 Weight Status Obese GI Symptoms GI Symptoms None Last BM none Difficult in: None Skin Integrity/Comment: multiple maceration, abrasion to right/left medial thigh Current %PO Poor (25-49%) Estimated Nutritional Goals BEE in Kcals: Adj wt of IBW Calories/Kcals/Kg 27-32 Kcals Calculated Protein: Adj wt of IBW Protein g/k-1.2 Protein Calculated 62-74 Fluid: ml Nutritional Problem 1. Problem Problem inadequate PO intake Etiology poor appetite Signs/Symptoms: PO intake 25-50% Malnutrition Alert Protein-Calorie Malnutrition N/A Is there a minimum of two criteria No selected? Query Text:Check all the applicable criteria. A minimum of two criteria are recommended for diagnosis of either severe or non-severe malnutrition. Intervention/Recommendation Comments 1. Continue with current diet as ordered. 2. Monitor PO intake, GI symptons, wt, labs and skin integrity 3. F/U as high risk in 2-3 days, 02/23-02/24 Expected Outcomes/Goals Expected Outcomes/Goals 1. PO intake to meet at least 75% of nutritional needs. 2. Wt stability, skin to remain intact, labs to improve
[2017-03-10] MEDS: Aspirin 81mg Chewable Tab PO SCH (08:39)
[2017-03-10] MEDS: Multivitamin w/ Minerals Tab PO SCH (08:39)
[2017-03-10] MEDS: Chlorhexidine Gluconate 0.12% 15mL Mouthwash MM SCH ×2 (08:54→20:02)
[2017-03-10 09:10] LABS: INR 1.28 (0.5-1.4); PROTHROMBIN TIME (TEST) 13.5 SECONDS (9.5-11.5)
[2017-03-10 10:27] LABS: ALLEN TEST PASS
[2017-03-10] MEDS ORDERED: Sodium Bicarbonate 8.4% 50mEq PFS IVP ONE (10:58)
--- NOTE | 2017-03-10 11:11 | Consultation ---
DATE OF CONSULTATION: 03/10/2017 HEMATOLOGY/ONCOLOGY CONSULTATION REFERRED BY: Dr. Yates. REASON FOR CONSULTATION: Low platelet, low hemoglobin. HISTORY OF PRESENT ILLNESS: The patient is a 71-year-old female who has been hospitalized since 02/18/2018. She was admitted with what was thought be gastric-outlet obstruction and she underwent EGD and no obstruction was found. She was found to have gastritis. Subsequently, she had respiratory failure and intubated and required vasopressor Levophed and now she is in ICU. She was found to progressive drop in the hemoglobin and platelets, therefore, I was asked to evaluate. PAST MEDICAL HISTORY: Hypertension, osteoarthritis, obesity, diabetes, reflux disease. PAST SURGICAL HISTORY: Cholecystectomy and appendectomy. MEDICATIONS: Reviewed. PHYSICAL EXAMINATION: GENERAL: The patient is awake, follows commands. She is intubated via endotracheal tube, nasogastric tube. CHEST: Equal air entry. ABDOMEN: Obese, soft. EXTREMITIES: Right arm midline. LABORATORY DATA: PTT 55.4, INR 1.2. White count 13.1, hemoglobin 7.7, platelet count 26. Creatinine 1.6, B12 and folate level are normal, ferritin 546, liver functions transaminase are normal. ASSESSMENT: 1. Septic shock with hypertension, respiratory failure and renal dysfunction. 2. Disseminated intravascular coagulation. The patient has elevated PTT and low platelet count and hemoglobin as she had gastritis but no acute bleeding. I will transfuse packed red blood cells and fresh frozen plasma. Discontinue aspirin from her medication and follow the DIC parameters including fibrinogen. She is on IV antibiotics under the care of the ID specialist and correction of the DIC, is Hinging on the correction of the underlying source of sepsis. Thank you Dr. Yates for the opportunity to participate in the care of this interesting case. JOB# [id number] CALVIN
--- NOTE | 2017-03-10 13:51 | General Progress Note ---
Subjective - Review of Systems Service Date: 03/10/17 Subjective: stuporous, on vent Objective - Results Result Diagrams: 03/10/17 06:10 03/10/17 06:10 Recent Labs: Laboratory Last Values WBC 13.1 Th/cmm (4.8-10.8) H 03/10/17 06:10 RBC 2.68 Mil/cmm (3.80-5.20) L 03/10/17 06:10 Hgb 7.7 gm/dL (12-16) L* 03/10/17 06:10 Hct 23.3 % (41.0-60) L 03/10/17 06:10 MCV 86.9 fl (81-100) 03/10/17 06:10 MCH 28.8 pg (27.0-31.0) 03/10/17 06:10 MCHC Differential 33.1 pg (28.0-36.0) 03/10/17 06:10 RDW 13.7 % (11.5-20.0) 03/10/17 06:10 Plt Count 26 Th/cmm (150-400) L* 03/10/17 06:10 MPV 9.6 fl 03/10/17 06:10 Neutrophils % 78.7 % (40.0-80.0) 03/10/17 06:10 Band Neutrophils % 5 % (0-10) 03/06/17 06:00 Lymphocytes % 9.4 % (20.0-50.0) L 03/10/17 06:10 Monocytes % 6.3 % (2.0-10.0) 03/10/17 06:10 Eosinophils % 5.3 % (0.0-5.0) H 03/10/17 06:10 Basophils % 0.3 % (0.0-2.0) 03/10/17 06:10 Neutrophils (Manual) 85 % (40-80) H 03/06/17 06:00 Lymphocytes 4 % (20-50) L 03/06/17 06:00 Monocytes 3 % (2-10) 03/06/17 06:00 Eosinophils 3 % (0-5) 03/06/17 06:00 Metamyelocytes 1 % (0-0) H 02/18/17 23:35 Hypochromia 1+ 02/18/17 23:35 Platelet Estimate DECREASED PLATELETS (NORMAL) 03/06/17 06:00 Platelet Morphology (NORMAL) 03/04/17 08:00 Plt Count 26 Th/cmm (150-750) L* 03/10/17 06:10 PT 13.5 SECONDS (9.5-11.5) H 03/10/17 06:10 INR 1.28 (0.5-1.4) 03/10/17 06:10 PTT (Actin FS) 55.4 SECONDS (26.0-38.0) H 03/10/17 06:10 Fibrinogen 242.0 mg/dL (200.0-400.0) 03/10/17 06:10 D-Dimer 1640 ng/mL (100-400) H 03/10/17 06:10 Specimen Source Arterial 03/10/17 10:22 Sample Site Right Radial 03/10/17 10:22 pH 7.30 (7.35-7.45) L 03/10/17 10:22 pCO2 39.0 mmHg (35.0-45.0) 03/10/17 10:22 pO2 68.0 mmHg (80.0-100.0) L 03/10/17 10:22 HCO3 19.6 mEq/L (20.0-26.0) L 03/10/17 10:22 Base Excess -6.7 mEq/L (-3.0-3.0) L 03/10/17 10:22 O2 Saturation 91.0 % (92.0-100.0) L 03/10/17 10:22 Jorje Test PASS 03/10/17 10:22 Vent Rate 4 03/10/17 10:22 Inspired O2 30 03/10/17 10:22 Tidal Volume 550 03/10/17 10:22 PEEP 5 03/10/17 10:22 Pressure (ins/psv/peep) 15 03/10/17 10:22 Critical Value PW 03/10/17 10:22 Sodium 135 mEq/L (136-145) L 03/10/17 06:10 Potassium 4.2 mEq/L (3.5-5.1) 03/10/17 06:10 Chloride 109 mEq/L (98-107) H 03/10/17 06:10 Carbon Dioxide 18.5 mEq/L (21.0-31.0) L 03/10/17 06:10 Anion Gap 11.7 (7.0-16.0) 03/10/17 06:10 BUN 49 mg/dL (7-25) H 03/10/17 06:10 Creatinine 1.6 mg/dL (0.6-1.2) H 03/10/17 06:10 Est GFR ( Amer) 41.1 ml/min (>90) 03/10/17 06:10 Est GFR (Non-Af Amer) 34.0 ml/min 03/10/17 06:10 BUN/Creatinine Ratio 30.6 03/10/17 06:10 Glucose 150 mg/dL (70-105) H 03/10/17 06:10 POC Glucose 128 MG/DL (70 - 105) H 03/10/17 11:25 Hemoglobin A1c % 5.8 % (4.0-6.0) 02/22/17 10:38 Whole Bld Lactic Acid 2.40 mmol/L (0.60-1.99) H* 02/27/17 15:04 Calcium 7.6 mg/dL (8.6-10.3) L 03/10/17 06:10 Phosphorus 2.5 mg/dL (2.5-5.0) 03/01/17 09:15 Magnesium 2.1 mg/dL (1.9-2.7) 03/01/17 09:15 Total Bilirubin 0.7 mg/dL (0.3-1.0) 03/08/17 05:25 Direct Bilirubin 0.09 mg/dL (0.0-0.2) 02/18/17 23:35 AST 10 U/L (13-39) L 03/08/17 05:25 ALT < 3 U/L (7-52) L 03/08/17 05:25 Alkaline Phosphatase 58 U/L (34-104) 03/08/17 05:25 Ammonia 38 umol/L (16-53) 03/01/17 17:28 B-Natriuretic Peptide 158.0 pg/mL (5.0-100.0) H 03/04/17 15:39 Total Protein 4.7 gm/dL (6.0-8.3) L 03/08/17 05:25 Albumin 2.9 gm/dL (3.7-5.3) L 03/08/17 05:25 Globulin 1.8 gm/dL 03/08/17 05:25 Albumin/Globulin Ratio 1.6 (1.0-1.8) 03/08/17 05:25 Amylase 36 U/L (29-103) 02/18/17 23:35 Lipase 10 U/L (11-82) L 02/18/17 23:35 Vitamin B12 860 pg/mL (232-1245) 02/26/17 04:45 Free T4 1.04 ng/dL (0.82-1.77) 02/25/17 04:50 Free T3 0.7 pg/mL (2.0-4.4) L 02/25/17 04:50 TSH 0.84 uIU/ml (0.34-5.60) 02/25/17 04:50 Total Cortisol 12.3 02/24/17 07:50 Urine Source [place] 02/27/17 15:00 Urine Color YELLOW 02/27/17 15:00 Urine Clarity CLOUDY (CLEAR) H 02/27/17 15:00 Urine pH 5.5 (4.6 - 8.0) 02/27/17 15:00 Ur Specific [place] <= 1.005 (1.005-1.030) 02/27/17 15:00 Urine Protein TRACE mg/dL (NEGATIVE) 02/27/17 15:00 Urine Glucose (UA) NEGATIVE mg/dL (NEGATIVE) 02/27/17 15:00 Urine Ketones NEGATIVE mg/dL (NEGATIVE) 02/27/17 15:00 Urine Blood LARGE (NEGATIVE) H 02/27/17 15:00 Urine Nitrate NEGATIVE (NEGATIVE) 02/27/17 15:00 Urine Bilirubin NEGATIVE (NEGATIVE) 02/27/17 15:00 Urine Urobilinogen 0.2 E.U./dL (0.2 - 1.0) 02/27/17 15:00 Ur Leukocyte Esterase LARGE (NEGATIVE) H 02/27/17 15:00 Urine RBC 10-25 /hpf (0-5) H 02/27/17 15:00 Urine WBC >100 /hpf (0-5) H 02/27/17 15:00 Ur Epithelial Cells MODERATE /lpf (FEW) 02/27/17 15:00 Urine Bacteria MODERATE /hpf (NONE SEEN) H 02/27/17 15:00 Urine Yeast MODERATE /hpf (NONE SEEN) H 02/20/17 16:15 Blood Type A POSITIVE 03/10/17 11:00 Antibody Screen NEGATIVE 03/10/17 11:00 Crossmatch See Detail 03/10/17 11:00 - Physical Exam Vitals and I&O: Vital Signs Temp 97.5 F 03/10/17 04:00 Pulse 85 03/10/17 13:09 Resp 18 03/10/17 06:55 BP 104/45 03/10/17 08:39 Pulse Ox 98 03/10/17 13:09 Intake & Output 03/09/17 03/10/17 03/10/17 18:59 06:59 18:59 Intake Total 773.372 842.151 12.706 Output Total 500 400 Balance 273.372 442.151 12.706 Weight (lbs) 121.835 kg 121.835 kg Intake: Intake, IV Amount 593.372 562.151 12.706 D5-0.9%Ns 1,000 ml @ 75 308.75 mls/hr IV .[id number] [facility] Rx #:[id number] Meropenem 1 gm In 100 100 Dextrose 5% 100 ml @ 100 mls/hr IV Q12H [facility] Rx#: [id number] Norepinephrine 8 mg In 69.789 57.985 12.706 Sodium Chloride 0.9% 250 ml @ Per Protocol IV TITR [facility] Rx#:[id number] Pantoprazole 80 mg In 14.833 204.166 Sodium Chloride 0.9% 100 ml @ 10 mls/hr IV Q10H [facility] Rx#:[id number] metroNIDAZOLE 500mg/NS 100 200 100mL 500 mg In 100 ml @ 100 mls/hr IV Q8HR [facility] Rx #:[id number] Tube Feeding 180 180 Other 100 Output: Urine 500 400 Other: # Bowel Movements 1 1 Stool Characteristics Liquid Liquid Liquid Brown Brown Active Medications: Current Medications Acetaminophen (Tylenol) 650 mg PO Q4HR PRN PRN Reason: Pain (Mild) Stop: 04/20/17 12:01 Last Admin: 03/06/17 03:23 Dose: 650 mg Albuterol/Ipratropium (Duoneb Neb) 3 ml HHN Q4HRT PRN PRN Reason: Wheezing Stop: 04/27/17 19:59 Last Admin: 02/28/17 03:18 Dose: 3 ml Albuterol/Ipratropium (Duoneb Neb) 3 ml HHN [id number] [facility] Stop: 04/27/17 19:59 Last Admin: 03/10/17 13:09 Dose: 3 ml Chlorhexidine Gluconate (Peridex) 15 ml MM 0800,2000 [facility] Stop: 04/28/17 19:59 Last Admin: 03/10/17 08:54 Dose: 15 ml Diltiazem HCl (Cardizem) 5 mg IVP Q4H PRN PRN Reason: HR > 120 Stop: 04/27/17 19:59 Last Admin: 02/27/17 04:59 Dose: 5 mg Docusate Sodium (Colace) 100 mg PO BID [facility] Stop: 04/20/17 16:59 Last Admin: 03/10/17 08:39 Dose: 100 mg Furosemide (Lasix) 40 mg IVP BID [facility] Stop: 05/08/17 08:59 Last Admin: 03/10/17 08:39 Dose: 40 mg Pantoprazole Sodium 80 mg/ (Sodium Chloride) 100 mls @ 10 mls/hr IV Q10H [facility] Stop: 04/20/17 08:59 Last Infusion: 03/10/17 06:00 Dose: 10 mls/hr Phenylephrine HCl 10 mg/ (Sodium Chloride) 250 mls @ 0 mls/hr IV TITR [facility]RIA; Per Protocol PRN Reason: Protocol Stop: 04/28/17 07:59 Norepinephrine Bitartrate 8 mg (/ Sodium Chloride) 258 mls @ 0 mls/hr IV TITR [facility]; Per Protocol PRN Reason: Protocol Stop: 04/28/17 09:59 Last Titration: 03/10/17 09:17 Dose: 0 mcg/min, 0 mls/hr Meropenem 1 gm/ Dextrose 100 mls @ 100 mls/hr IV Q12H [facility] Stop: 04/28/17 12:29 Last Admin: 03/10/17 11:31 Dose: 100 mls/hr Metronidazole (Flagyl) 500 mg in 100 mls @ 100 mls/hr IV Q8HR [facility] Stop: 05/04/17 20:59 Last Admin: 03/10/17 12:45 Dose: 100 mls/hr Insulin Aspart (Novolog Insulin Sliding Scale) 0 units SUBQ Q6H [facility] PRN Reason: Protocol Stop: 05/03/17 00:00 Last Admin: 03/10/17 11:35 Dose: Not Given Metoclopramide HCl (Reglan) 5 mg IVP Q6HR [facility] Stop: 05/05/17 17:59 Last Admin: 03/10/17 11:31 Dose: 5 mg Mirtazapine (Remeron) 15 mg PO HS [facility] PRN Reason: Protocol Stop: 04/26/17 20:59 Last Admin: 03/09/17 20:32 Dose: 15 mg Miscellaneous (Probiotic Screen) 1 ea MC PRN PRN PRN Reason: PROTOCOL Stop: 04/21/17 16:25 Morphine Sulfate (Morphine) 1 mg IVP Q4HR PRN PRN Reason: Severe Pain Stop: 05/04/17 14:13 Last Admin: 03/10/17 02:50 Dose: 1 mg Nitroglycerin (Nitrostat) 0.4 mg SL Q5MIN PRN PRN Reason: Chest Pain Stop: 04/20/17 12:01 Nystatin (Nystop) 100,000 units TP BID PRN PRN Reason: SKIN EXCORIATIONS Stop: 04/21/17 15:35 Last Admin: 03/08/17 06:00 Dose: 100,000 units Ondansetron HCl (Zofran) 4 mg IV Q6H PRN PRN Reason: Nausea Stop: 04/20/17 03:38 General: No acute distress HEENT: Atraumatic, EOMI Neck: Supple, JVD, +2 carotid pulse wo bruit Cardiovascular: Regular rate, Normal S1, Normal S2 Lungs: Other (coarse rhonchi) Abdomen: Bowel sounds, Soft Extremities: Edema, Other ((+3) bipedal edema) Neurological: Sensation intact Skin: no Rash Psych/Mental Status: Mood NL - Procedures Procedures: Procedures Procedure Code Date INSERT EMERGENCY AIRWAY 77789 02/19/17 INSERTION OF ENDOTRACHEAL AIRWAY INTO [place]HE[place], VIA OPENING [id number] 02/19/17 RESPIRATORY VENTILATION, GREATER THAN 96 CONSECUTIVE HOURS [id number] 02/19/17 VENT MGMT INPAT INIT DAY 84690 02/19/17 VENT MGMT INPAT SUBQ DAY 42207 02/19/17 Assessment/Plan - Problem List Patient Problems: All Active Problems Acute kidney failure (Acute) 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 Azotemia (Acute) R79.89 Bradycardia (Acute) R00.1 COPD (chronic obstructive pulmonary disease) (Acute) Cardiomegaly (Acute) I51.7 Chest pain (Acute) R07.9 Decubitus ulcer of buttock, 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 - Assessment Assessment: SOHAIL on CKD Acute resp failure on vent 2nd CHF, HAP, possible SOFIE, Exacerbation COPD Shock Sepsis DJD Type 2 DM GERD SOFIE Hyponatremia S/p [place], Appe anasarca Thrombocytopenia Anemia of CD - Plan Plan: Lab - Result Diagrams 03/01/17 09:15 03/01/17 09:15 Current Medications Acetaminophen (Tylenol) 650 mg PO Q4HR PRN PRN Reason: Pain (Mild) Stop: 04/20/17 12:01 Last Admin: 02/21/17 09:54 Dose: 650 mg Acetaminophen/Hydrocodone Bitart ([place] 5mg/325mg) 1 tab PO Q6H PRN PRN Reason: PAIN Stop: 04/20/17 13:24 Albuterol/Ipratropium (Duoneb Neb) 3 ml HHN Q4HRT PRN PRN Reason: Wheezing Stop: 04/27/17 19:59 Last Admin: 02/28/17 03:18 Dose: 3 ml Albuterol/Ipratropium (Duoneb Neb) 3 ml HHN [id number] [facility] Stop: 04/27/17 19:59 Last Admin: 03/01/17 13:49 Dose: 3 ml Aspirin (Ecotrin) 81 mg PO DAILY [facility] Stop: 04/21/17 08:59 Last Admin: 03/01/17 09:30 Dose: Not Given Chlorhexidine Gluconate (Peridex) 15 ml MM 0800,2000 [facility] Stop: 04/28/17 19:59 Last Admin: 03/01/17 08:30 Dose: 15 ml Diltiazem HCl (Cardizem) 5 mg IVP Q4H PRN PRN Reason: HR > 120 Stop: 04/27/17 19:59 Last Admin: 02/27/17 04:59 Dose: 5 mg Docusate Sodium (Colace) 100 mg PO BID [facility] Stop: 04/20/17 16:59 Last Admin: 03/01/17 09:31 Dose: Not Given Fluconazole (Diflucan) 100 mg PO DAILY [facility] Stop: 03/08/17 08:59 Last Admin: 03/01/17 09:31 Dose: Not Given Furosemide (Lasix) 40 mg PO DAILY [facility] Stop: 04/21/17 08:59 Last Admin: 03/01/17 09:31 Dose: Not Given Pantoprazole Sodium 80 mg/ (Sodium Chloride) 100 mls @ 10 mls/hr IV Q10H [facility] Stop: 04/20/17 08:59 Last Admin: 03/01/17 09:31 Dose: 10 mls/hr Linezolid (Zyvox) 600 mg in 300 mls @ 300 mls/hr IV Q12HR [facility] Stop: 04/22/17 20:59 Last Infusion: 03/01/17 10:00 Dose: Infused Levofloxacin (Levaquin Pb) 250 mg in 50 mls @ 50 mls/hr IV Q24HR [facility] Stop: 04/23/17 20:59 Last Infusion: 02/28/17 21:17 Dose: Infused Phenylephrine HCl 10 mg/ (Sodium Chloride) 250 mls @ 0 mls/hr IV TITR [facility]; Per Protocol PRN Reason: Protocol Stop: 04/28/17 07:59 Norepinephrine Bitartrate 8 mg (/ Sodium Chloride) 258 mls @ 0 mls/hr IV TITR [facility]; Per Protocol PRN Reason: Protocol Stop: 04/28/17 09:59 Last Titration: 03/01/17 06:31 Dose: 6 mcg/min, 11.61 mls/hr Meropenem 1 gm/ Dextrose 100 mls @ 100 mls/hr IV Q12H [facility] Stop: 04/28/17 12:29 Last Infusion: 03/01/17 13:00 Dose: Infused Potassium Chloride/Dextrose/Sod Cl (D5-0.9ns W/Kcl 20meq) 1,000 mls @ 75 mls/ hr IV .[id number] [facility] Stop: 04/30/17 14:41 Insulin Aspart (Novolog Insulin Sliding Scale) 0 units SUBQ ACHS [facility] PRN Reason: Protocol Stop: 04/20/17 16:29 Last Admin: 03/01/17 12:01 Dose: 4 units Mirtazapine (Remeron) 15 mg PO HS [facility] PRN Reason: Protocol Stop: 04/26/17 20:59 Last Admin: 02/28/17 21:23 Dose: 15 mg Miscellaneous (Probiotic Screen) 1 ea MC PRN PRN PRN Reason: PROTOCOL Stop: 04/21/17 16:25 Morphine Sulfate (Morphine) 1 mg IVP Q3H PRN PRN Reason: Pain (Moderate) Stop: 04/20/17 01:59 Last Admin: 03/01/17 09:28 Dose: 1 mg Nitroglycerin (Nitrostat) 0.4 mg SL Q5MIN PRN PRN Reason: Chest Pain Stop: 04/20/17 12:01 Nystatin (Nystop) 100,000 units TP BID PRN PRN Reason: SKIN EXCORIATIONS Stop: 04/21/17 15:35 Last Admin: 02/21/17 11:46 Dose: 100,000 units Ondansetron HCl (Zofran) 4 mg IV Q6H PRN PRN Reason: Nausea Stop: 04/20/17 03:38 Spironolactone (Aldactone) 50 mg PO BID [facility] Stop: 04/27/17 08:59 Last Admin: 03/01/17 09:29 Dose: Not Given Lab - Result Diagrams 03/10/17 06:10 03/10/17 06:10 Na up to 135 kidney fnc remain stable w/ BUN/Cr of 49/1.6 UOP improved to nam 2L CXR still w/ CHF, continue Lasix IVP DC spironolactone still on Levo 4 mcg f/u electorlytes, cbc, CXR DC ivf due to worsening anasarca, chf add albumin initiate [id number] Plts down to 26 etio ?sepsis, meds, DIC For transfusion of PRBC, FFP Nutritional Asmnt/Malnutr-PDOC - Dietary Evaluation Malnutrition Findings (Please click <Entered> for more info): Nutritional Asmnt/Malnutrition Start: 02/21/17 18: 20 Text: Status: Complete Freq: Document 02/21/17 18:21 LCHENG (Rec: 02/21/17 18:32 LCHENG [id number]) Nutritional Asmnt/Malnutrition Patient General Information Nutritional Screening High Risk Consult Diagnosis gastric outlet obstruction Pertinent Medical Hx/Surgical Hx HTN, OA, DM, GERD Subjective Information Pt seen sleeping at the time of visit, attempted x 2. Spoke with RN, pt consumed 50% of breakfast and only the soup of lunch today, not much appetite, no complain of N/V. Pt will be NPO from midnight for GI exam tommorrow. Current Diet Order/ Nutrition Support no added salt 4gm, CCHO, no eggs, banana and cereal in morning Pertinent Medications colace, lasix, novolog, levaquin, piperacillin Pertinent Labs 02/20 Na 137, K 4.5, Cl 104, BUN 55, Cr 1.6, Glucose 137, POC 126-199 since admit, Ca 8. 3 Nutritional Hx/Data Height 1.57 m Height (Calculated Centimeters) 157.5 Current Weight (lbs) 97.023 kg Weight (Calculated Kilograms) 97.0 Weight (Calculated Grams) 99962.4 [place] Body Weight 110 % [place] Body Weight 194 Body Mass Index (BMI) 39.1 Weight Status Obese GI Symptoms GI Symptoms None Last BM none Difficult in: None Skin Integrity/Comment: multiple maceration, abrasion to right/left medial thigh Current %PO Poor (25-49%) Estimated Nutritional Goals BEE in Kcals: Adj wt of IBW Calories/Kcals/Kg 27-32 Kcals Calculated Protein: Adj wt of IBW Protein g/k-1.2 Protein Calculated 62-74 Fluid: ml Nutritional Problem 1. Problem Problem inadequate PO intake Etiology poor appetite Signs/Symptoms: PO intake 25-50% Malnutrition Alert Protein-Calorie Malnutrition N/A Is there a minimum of two criteria No selected? Query Text:Check all the applicable criteria. A minimum of two criteria are recommended for diagnosis of either severe or non-severe malnutrition. Intervention/Recommendation Comments 1. Continue with current diet as ordered. 2. Monitor PO intake, GI symptons, wt, labs and skin integrity 3. F/U as high risk in 2-3 days, 02/23-02/24 Expected Outcomes/Goals Expected Outcomes/Goals 1. PO intake to meet at least 75% of nutritional needs. 2. Wt stability, skin to remain intact, labs to improve
[2017-03-10] MEDS ORDERED: Diatrizoate Meglumine/Diatri 30 mL Sol PO ONE (14:30)
--- NOTE | 2017-03-10 14:30 | Infectious Disease Prog Note ---
Infectious Disease Subjective - Review of Systems Service Date: 03/10/17 Subjective: Remains on vent intubated orally. on the ventilator support. Infectious Disease Objective - Results Result Diagrams: 03/10/17 06:10 03/10/17 06:10 Recent Labs: Laboratory Last Values WBC 13.1 Th/cmm (4.8-10.8) H 03/10/17 06:10 RBC 2.68 Mil/cmm (3.80-5.20) L 03/10/17 06:10 Hgb 7.7 gm/dL (12-16) L* 03/10/17 06:10 Hct 23.3 % (41.0-60) L 03/10/17 06:10 MCV 86.9 fl (81-100) 03/10/17 06:10 MCH 28.8 pg (27.0-31.0) 03/10/17 06:10 MCHC Differential 33.1 pg (28.0-36.0) 03/10/17 06:10 RDW 13.7 % (11.5-20.0) 03/10/17 06:10 Plt Count 26 Th/cmm (150-400) L* 03/10/17 06:10 MPV 9.6 fl 03/10/17 06:10 Neutrophils % 78.7 % (40.0-80.0) 03/10/17 06:10 Band Neutrophils % 5 % (0-10) 03/06/17 06:00 Lymphocytes % 9.4 % (20.0-50.0) L 03/10/17 06:10 Monocytes % 6.3 % (2.0-10.0) 03/10/17 06:10 Eosinophils % 5.3 % (0.0-5.0) H 03/10/17 06:10 Basophils % 0.3 % (0.0-2.0) 03/10/17 06:10 Neutrophils (Manual) 85 % (40-80) H 03/06/17 06:00 Lymphocytes 4 % (20-50) L 03/06/17 06:00 Monocytes 3 % (2-10) 03/06/17 06:00 Eosinophils 3 % (0-5) 03/06/17 06:00 Metamyelocytes 1 % (0-0) H 02/18/17 23:35 Hypochromia 1+ 02/18/17 23:35 Platelet Estimate DECREASED PLATELETS (NORMAL) 03/06/17 06:00 Platelet Morphology (NORMAL) 03/04/17 08:00 Plt Count 26 Th/cmm (150-750) L* 03/10/17 06:10 PT 13.5 SECONDS (9.5-11.5) H 03/10/17 06:10 INR 1.28 (0.5-1.4) 03/10/17 06:10 PTT (Actin FS) 55.4 SECONDS (26.0-38.0) H 03/10/17 06:10 Fibrinogen 242.0 mg/dL (200.0-400.0) 03/10/17 06:10 D-Dimer 1640 ng/mL (100-400) H 03/10/17 06:10 Specimen Source Arterial 03/10/17 10:22 Sample Site Right Radial 03/10/17 10:22 pH 7.30 (7.35-7.45) L 03/10/17 10:22 pCO2 39.0 mmHg (35.0-45.0) 03/10/17 10:22 pO2 68.0 mmHg (80.0-100.0) L 03/10/17 10:22 HCO3 19.6 mEq/L (20.0-26.0) L 03/10/17 10:22 Base Excess -6.7 mEq/L (-3.0-3.0) L 03/10/17 10:22 O2 Saturation 91.0 % (92.0-100.0) L 03/10/17 10:22 Jorje Test PASS 03/10/17 10:22 Vent Rate 4 03/10/17 10:22 Inspired O2 30 03/10/17 10:22 Tidal Volume 550 03/10/17 10:22 PEEP 5 03/10/17 10:22 Pressure (ins/psv/peep) 15 03/10/17 10:22 Critical Value PW 03/10/17 10:22 Sodium 135 mEq/L (136-145) L 03/10/17 06:10 Potassium 4.2 mEq/L (3.5-5.1) 03/10/17 06:10 Chloride 109 mEq/L (98-107) H 03/10/17 06:10 Carbon Dioxide 18.5 mEq/L (21.0-31.0) L 03/10/17 06:10 Anion Gap 11.7 (7.0-16.0) 03/10/17 06:10 BUN 49 mg/dL (7-25) H 03/10/17 06:10 Creatinine 1.6 mg/dL (0.6-1.2) H 03/10/17 06:10 Est GFR ( Amer) 41.1 ml/min (>90) 03/10/17 06:10 Est GFR (Non-Af Amer) 34.0 ml/min 03/10/17 06:10 BUN/Creatinine Ratio 30.6 03/10/17 06:10 Glucose 150 mg/dL (70-105) H 03/10/17 06:10 POC Glucose 128 MG/DL (70 - 105) H 03/10/17 11:25 Hemoglobin A1c % 5.8 % (4.0-6.0) 02/22/17 10:38 Whole Bld Lactic Acid 2.40 mmol/L (0.60-1.99) H* 02/27/17 15:04 Calcium 7.6 mg/dL (8.6-10.3) L 03/10/17 06:10 Phosphorus 2.5 mg/dL (2.5-5.0) 03/01/17 09:15 Magnesium 2.1 mg/dL (1.9-2.7) 03/01/17 09:15 Total Bilirubin 0.7 mg/dL (0.3-1.0) 03/08/17 05:25 Direct Bilirubin 0.09 mg/dL (0.0-0.2) 02/18/17 23:35 AST 10 U/L (13-39) L 03/08/17 05:25 ALT < 3 U/L (7-52) L 03/08/17 05:25 Alkaline Phosphatase 58 U/L (34-104) 03/08/17 05:25 Ammonia 38 umol/L (16-53) 03/01/17 17:28 B-Natriuretic Peptide 158.0 pg/mL (5.0-100.0) H 03/04/17 15:39 Total Protein 4.7 gm/dL (6.0-8.3) L 03/08/17 05:25 Albumin 2.9 gm/dL (3.7-5.3) L 03/08/17 05:25 Globulin 1.8 gm/dL 03/08/17 05:25 Albumin/Globulin Ratio 1.6 (1.0-1.8) 03/08/17 05:25 Amylase 36 U/L (29-103) 02/18/17 23:35 Lipase 10 U/L (11-82) L 02/18/17 23:35 Vitamin B12 860 pg/mL (232-1245) 02/26/17 04:45 Free T4 1.04 ng/dL (0.82-1.77) 02/25/17 04:50 Free T3 0.7 pg/mL (2.0-4.4) L 02/25/17 04:50 TSH 0.84 uIU/ml (0.34-5.60) 02/25/17 04:50 Total Cortisol 12.3 02/24/17 07:50 Urine Source [place] 02/27/17 15:00 Urine Color YELLOW 02/27/17 15:00 Urine Clarity CLOUDY (CLEAR) H 02/27/17 15:00 Urine pH 5.5 (4.6 - 8.0) 02/27/17 15:00 Ur Specific [place] <= 1.005 (1.005-1.030) 02/27/17 15:00 Urine Protein TRACE mg/dL (NEGATIVE) 02/27/17 15:00 Urine Glucose (UA) NEGATIVE mg/dL (NEGATIVE) 02/27/17 15:00 Urine Ketones NEGATIVE mg/dL (NEGATIVE) 02/27/17 15:00 Urine Blood LARGE (NEGATIVE) H 02/27/17 15:00 Urine Nitrate NEGATIVE (NEGATIVE) 02/27/17 15:00 Urine Bilirubin NEGATIVE (NEGATIVE) 02/27/17 15:00 Urine Urobilinogen 0.2 E.U./dL (0.2 - 1.0) 02/27/17 15:00 Ur Leukocyte Esterase LARGE (NEGATIVE) H 02/27/17 15:00 Urine RBC 10-25 /hpf (0-5) H 02/27/17 15:00 Urine WBC >100 /hpf (0-5) H 02/27/17 15:00 Ur Epithelial Cells MODERATE /lpf (FEW) 02/27/17 15:00 Urine Bacteria MODERATE /hpf (NONE SEEN) H 02/27/17 15:00 Urine Yeast MODERATE /hpf (NONE SEEN) H 02/20/17 16:15 Blood Type A POSITIVE 03/10/17 11:00 Antibody Screen NEGATIVE 03/10/17 11:00 Crossmatch See Detail 03/10/17 11:00 - Physical Exam Vitals and I&O: Vital Signs Temp 97.5 F 03/10/17 04:00 Pulse 85 03/10/17 13:09 Resp 18 03/10/17 06:55 BP 104/45 03/10/17 08:39 Pulse Ox 98 03/10/17 13:09 Intake & Output 03/09/17 03/10/17 03/10/17 18:59 06:59 18:59 Intake Total 773.372 842.151 112.706 Output Total 500 400 Balance 273.372 442.151 112.706 Weight (lbs) 121.835 kg 121.835 kg Intake: Intake, IV Amount 593.372 562.151 112.706 D5-0.9%Ns 1,000 ml @ 75 308.75 mls/hr IV .[id number] [facility] Rx #:[id number] Meropenem 1 gm In 100 100 Dextrose 5% 100 ml @ 100 mls/hr IV Q12H [facility] Rx#: [id number] Norepinephrine 8 mg In 69.789 57.985 12.706 Sodium Chloride 0.9% 250 ml @ Per Protocol IV TITR [facility] Rx#:[id number] Pantoprazole 80 mg In 14.833 204.166 Sodium Chloride 0.9% 100 ml @ 10 mls/hr IV Q10H [facility] Rx#:[id number] metroNIDAZOLE 500mg/NS 100 200 100 100mL 500 mg In 100 ml @ 100 mls/hr IV Q8HR [facility] Rx #:[id number] Tube Feeding 180 180 Other 100 Output: Urine 500 400 Other: # Bowel Movements 1 1 Stool Characteristics Liquid Liquid Liquid Brown Brown Active Medications: Current Medications Acetaminophen (Tylenol) 650 mg PO Q4HR PRN PRN Reason: Pain (Mild) Stop: 04/20/17 12:01 Last Admin: 03/06/17 03:23 Dose: 650 mg Albuterol/Ipratropium (Duoneb Neb) 3 ml HHN Q4HRT PRN PRN Reason: Wheezing Stop: 04/27/17 19:59 Last Admin: 02/28/17 03:18 Dose: 3 ml Albuterol/Ipratropium (Duoneb Neb) 3 ml HHN [id number] [facility] Stop: 04/27/17 19:59 Last Admin: 03/10/17 13:09 Dose: 3 ml Chlorhexidine Gluconate (Peridex) 15 ml MM 0800,2000 [facility] Stop: 04/28/17 19:59 Last Admin: 03/10/17 08:54 Dose: 15 ml Diltiazem HCl (Cardizem) 5 mg IVP Q4H PRN PRN Reason: HR > 120 Stop: 04/27/17 19:59 Last Admin: 02/27/17 04:59 Dose: 5 mg Docusate Sodium (Colace) 100 mg PO BID [facility] Stop: 04/20/17 16:59 Last Admin: 03/10/17 08:39 Dose: 100 mg Furosemide (Lasix) 40 mg IVP BID [facility] Stop: 05/08/17 08:59 Last Admin: 03/10/17 08:39 Dose: 40 mg Pantoprazole Sodium 80 mg/ (Sodium Chloride) 100 mls @ 10 mls/hr IV Q10H [facility] Stop: 04/20/17 08:59 Last Infusion: 03/10/17 06:00 Dose: 10 mls/hr Phenylephrine HCl 10 mg/ (Sodium Chloride) 250 mls @ 0 mls/hr IV TITR PATRIA; Per Protocol PRN Reason: Protocol Stop: 04/28/17 07:59 Norepinephrine Bitartrate 8 mg (/ Sodium Chloride) 258 mls @ 0 mls/hr IV TITR PATRIA; Per Protocol PRN Reason: Protocol Stop: 04/28/17 09:59 Last Titration: 03/10/17 09:17 Dose: 0 mcg/min, 0 mls/hr Meropenem 1 gm/ Dextrose 100 mls @ 100 mls/hr IV Q12H [facility] Stop: 04/28/17 12:29 Last Admin: 03/10/17 11:31 Dose: 100 mls/hr Metronidazole (Flagyl) 500 mg in 100 mls @ 100 mls/hr IV Q8HR [facility] Stop: 05/04/17 20:59 Last Infusion: 03/10/17 13:45 Dose: Infused Insulin Aspart (Novolog Insulin Sliding Scale) 0 units SUBQ Q6H [facility] PRN Reason: Protocol Stop: 05/03/17 00:00 Last Admin: 03/10/17 11:35 Dose: Not Given Metoclopramide HCl (Reglan) 5 mg IVP Q6HR [facility] Stop: 05/05/17 17:59 Last Admin: 03/10/17 11:31 Dose: 5 mg Mirtazapine (Remeron) 15 mg PO HS [facility] PRN Reason: Protocol Stop: 04/26/17 20:59 Last Admin: 03/09/17 20:32 Dose: 15 mg Miscellaneous (Probiotic Screen) 1 ea MC PRN PRN PRN Reason: PROTOCOL Stop: 04/21/17 16:25 Morphine Sulfate (Morphine) 1 mg IVP Q4HR PRN PRN Reason: Severe Pain Stop: 05/04/17 14:13 Last Admin: 03/10/17 02:50 Dose: 1 mg Nitroglycerin (Nitrostat) 0.4 mg SL Q5MIN PRN PRN Reason: Chest Pain Stop: 04/20/17 12:01 Nystatin (Nystop) 100,000 units TP BID PRN PRN Reason: SKIN EXCORIATIONS Stop: 04/21/17 15:35 Last Admin: 03/08/17 06:00 Dose: 100,000 units Ondansetron HCl (Zofran) 4 mg IV Q6H PRN PRN Reason: Nausea Stop: 04/20/17 03:38 General: no acute distress, well developed, well nourished HEENT: atraumatic, normocephalic, PERRLA Neck: supple, no thyromegaly, no lymphadenopathy Cardiovascular: S1S2, regular Lungs: clear to percussion, no clear to auscultation bilaterally Abdomen: soft, no tender, no distended Extremities: no cyanosis, no clubbing Neurological: awake, alert, oriented Skin: intact - Procedures Procedures: Procedures Procedure Code Date INSERT EMERGENCY AIRWAY 96476 02/19/17 INSERTION OF ENDOTRACHEAL AIRWAY INTO [place]HE[place], VIA OPENING [id number] 02/19/17 RESPIRATORY VENTILATION, GREATER THAN 96 CONSECUTIVE HOURS [id number] 02/19/17 VENT MGMT INPAT INIT DAY 44125 02/19/17 VENT MGMT INPAT SUBQ DAY 82057 02/19/17 Infectious Disease Assmt/Plan - Problem List Patient Problems: All Active Problems Acute kidney failure (Acute) 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 Sepsis. 2. Pneumonia. 3. UTI, Candiduria. 4. Renal failure. 5. Hypotension, improving 6. VDRF. 7. Thrombocytopenia. DIC - Plan Plan: continue meropenem. Continue flagyl. Nutritional Asmnt/Malnutr-PDOC - Dietary Evaluation Malnutrition Findings (Please click <Entered> for more info): Nutritional Asmnt/Malnutrition Start: 02/21/17 18: 20 Text: Status: Complete Freq: Document 02/21/17 18:21 LCHENG (Rec: 02/21/17 18:32 LCHENG [id number]) Nutritional Asmnt/Malnutrition Patient General Information Nutritional Screening High Risk Consult Diagnosis gastric outlet obstruction Pertinent Medical Hx/Surgical Hx HTN, OA, DM, GERD Subjective Information Pt seen sleeping at the time of visit, attempted x 2. Spoke with RN, pt consumed 50% of breakfast and only the soup of lunch today, not much appetite, no complain of N/V. Pt will be NPO from midnight for GI exam tommorrow. Current Diet Order/ Nutrition Support no added salt 4gm, CCHO, no eggs, banana and cereal in morning Pertinent Medications colace, lasix, novolog, levaquin, piperacillin Pertinent Labs 02/20 Na 137, K 4.5, Cl 104, BUN 55, Cr 1.6, Glucose 137, POC 126-199 since admit, Ca 8. 3 Nutritional Hx/Data Height 1.57 m Height (Calculated Centimeters) 157.5 Current Weight (lbs) 97.023 kg Weight (Calculated Kilograms) 97.0 Weight (Calculated Grams) 40048.4 Roll Body Weight 110 % Roll Body Weight 194 Body Mass Index (BMI) 39.1 Weight Status Obese GI Symptoms GI Symptoms None Last BM none Difficult in: None Skin Integrity/Comment: multiple maceration, abrasion to right/left medial thigh Current %PO Poor (25-49%) Estimated Nutritional Goals BEE in Kcals: Adj wt of IBW Calories/Kcals/Kg 27-32 Kcals Calculated Protein: Adj wt of IBW Protein g/k-1.2 Protein Calculated 62-74 Fluid: ml Nutritional Problem 1. Problem Problem inadequate PO intake Etiology poor appetite Signs/Symptoms: PO intake 25-50% Malnutrition Alert Protein-Calorie Malnutrition N/A Is there a minimum of two criteria No selected? Query Text:Check all the applicable criteria. A minimum of two criteria are recommended for diagnosis of either severe or non-severe malnutrition. Intervention/Recommendation Comments 1. Continue with current diet as ordered. 2. Monitor PO intake, GI symptons, wt, labs and skin integrity 3. F/U as high risk in 2-3 days, 02/23-02/24 Expected Outcomes/Goals Expected Outcomes/Goals 1. PO intake to meet at least 75% of nutritional needs. 2. Wt stability, skin to remain intact, labs to improve
--- NOTE | 2017-03-10 18:07 | General Progress Note ---
Subjective - Review of Systems Service Date: 03/10/17 Events since last encounter: for possible tracheostomy Objective - Results Result Diagrams: 03/10/17 06:10 03/10/17 06:10 Recent Labs: Laboratory Last Values WBC 13.1 Th/cmm (4.8-10.8) H 03/10/17 06:10 RBC 2.68 Mil/cmm (3.80-5.20) L 03/10/17 06:10 Hgb 7.7 gm/dL (12-16) L* 03/10/17 06:10 Hct 23.3 % (41.0-60) L 03/10/17 06:10 MCV 86.9 fl (81-100) 03/10/17 06:10 MCH 28.8 pg (27.0-31.0) 03/10/17 06:10 MCHC Differential 33.1 pg (28.0-36.0) 03/10/17 06:10 RDW 13.7 % (11.5-20.0) 03/10/17 06:10 Plt Count 26 Th/cmm (150-400) L* 03/10/17 06:10 MPV 9.6 fl 03/10/17 06:10 Neutrophils % 78.7 % (40.0-80.0) 03/10/17 06:10 Band Neutrophils % 5 % (0-10) 03/06/17 06:00 Lymphocytes % 9.4 % (20.0-50.0) L 03/10/17 06:10 Monocytes % 6.3 % (2.0-10.0) 03/10/17 06:10 Eosinophils % 5.3 % (0.0-5.0) H 03/10/17 06:10 Basophils % 0.3 % (0.0-2.0) 03/10/17 06:10 Neutrophils (Manual) 85 % (40-80) H 03/06/17 06:00 Lymphocytes 4 % (20-50) L 03/06/17 06:00 Monocytes 3 % (2-10) 03/06/17 06:00 Eosinophils 3 % (0-5) 03/06/17 06:00 Metamyelocytes 1 % (0-0) H 02/18/17 23:35 Hypochromia 1+ 02/18/17 23:35 Platelet Estimate DECREASED PLATELETS (NORMAL) 03/06/17 06:00 Platelet Morphology (NORMAL) 03/04/17 08:00 Plt Count 26 Th/cmm (150-750) L* 03/10/17 06:10 PT 13.5 SECONDS (9.5-11.5) H 03/10/17 06:10 INR 1.28 (0.5-1.4) 03/10/17 06:10 PTT (Actin FS) 55.4 SECONDS (26.0-38.0) H 03/10/17 06:10 Fibrinogen 242.0 mg/dL (200.0-400.0) 03/10/17 06:10 D-Dimer 1640 ng/mL (100-400) H 03/10/17 06:10 Specimen Source Arterial 03/10/17 10:22 Sample Site Right Radial 03/10/17 10:22 pH 7.30 (7.35-7.45) L 03/10/17 10:22 pCO2 39.0 mmHg (35.0-45.0) 03/10/17 10:22 pO2 68.0 mmHg (80.0-100.0) L 03/10/17 10:22 HCO3 19.6 mEq/L (20.0-26.0) L 03/10/17 10:22 Base Excess -6.7 mEq/L (-3.0-3.0) L 03/10/17 10:22 O2 Saturation 91.0 % (92.0-100.0) L 03/10/17 10:22 Jorje Test PASS 03/10/17 10:22 Vent Rate 4 03/10/17 10:22 Inspired O2 30 03/10/17 10:22 Tidal Volume 550 03/10/17 10:22 PEEP 5 03/10/17 10:22 Pressure (ins/psv/peep) 15 03/10/17 10:22 Critical Value PW 03/10/17 10:22 Sodium 135 mEq/L (136-145) L 03/10/17 06:10 Potassium 4.2 mEq/L (3.5-5.1) 03/10/17 06:10 Chloride 109 mEq/L (98-107) H 03/10/17 06:10 Carbon Dioxide 18.5 mEq/L (21.0-31.0) L 03/10/17 06:10 Anion Gap 11.7 (7.0-16.0) 03/10/17 06:10 BUN 49 mg/dL (7-25) H 03/10/17 06:10 Creatinine 1.6 mg/dL (0.6-1.2) H 03/10/17 06:10 Est GFR ( Amer) 41.1 ml/min (>90) 03/10/17 06:10 Est GFR (Non-Af Amer) 34.0 ml/min 03/10/17 06:10 BUN/Creatinine Ratio 30.6 03/10/17 06:10 Glucose 150 mg/dL (70-105) H 03/10/17 06:10 POC Glucose 144 MG/DL (70 - 105) H 03/10/17 17:06 Hemoglobin A1c % 5.8 % (4.0-6.0) 02/22/17 10:38 Whole Bld Lactic Acid 2.40 mmol/L (0.60-1.99) H* 02/27/17 15:04 Calcium 7.6 mg/dL (8.6-10.3) L 03/10/17 06:10 Phosphorus 2.5 mg/dL (2.5-5.0) 03/01/17 09:15 Magnesium 2.1 mg/dL (1.9-2.7) 03/01/17 09:15 Total Bilirubin 0.7 mg/dL (0.3-1.0) 03/08/17 05:25 Direct Bilirubin 0.09 mg/dL (0.0-0.2) 02/18/17 23:35 AST 10 U/L (13-39) L 03/08/17 05:25 ALT < 3 U/L (7-52) L 03/08/17 05:25 Alkaline Phosphatase 58 U/L (34-104) 03/08/17 05:25 Ammonia 38 umol/L (16-53) 03/01/17 17:28 B-Natriuretic Peptide 158.0 pg/mL (5.0-100.0) H 03/04/17 15:39 Total Protein 4.7 gm/dL (6.0-8.3) L 03/08/17 05:25 Albumin 2.9 gm/dL (3.7-5.3) L 03/08/17 05:25 Globulin 1.8 gm/dL 03/08/17 05:25 Albumin/Globulin Ratio 1.6 (1.0-1.8) 03/08/17 05:25 Amylase 36 U/L (29-103) 02/18/17 23:35 Lipase 10 U/L (11-82) L 02/18/17 23:35 Vitamin B12 860 pg/mL (232-1245) 02/26/17 04:45 Free T4 1.04 ng/dL (0.82-1.77) 02/25/17 04:50 Free T3 0.7 pg/mL (2.0-4.4) L 02/25/17 04:50 TSH 0.84 uIU/ml (0.34-5.60) 02/25/17 04:50 Total Cortisol 12.3 02/24/17 07:50 Urine Source [place] 02/27/17 15:00 Urine Color YELLOW 02/27/17 15:00 Urine Clarity CLOUDY (CLEAR) H 02/27/17 15:00 Urine pH 5.5 (4.6 - 8.0) 02/27/17 15:00 Ur Specific [place] <= 1.005 (1.005-1.030) 02/27/17 15:00 Urine Protein TRACE mg/dL (NEGATIVE) 02/27/17 15:00 Urine Glucose (UA) NEGATIVE mg/dL (NEGATIVE) 02/27/17 15:00 Urine Ketones NEGATIVE mg/dL (NEGATIVE) 02/27/17 15:00 Urine Blood LARGE (NEGATIVE) H 02/27/17 15:00 Urine Nitrate NEGATIVE (NEGATIVE) 02/27/17 15:00 Urine Bilirubin NEGATIVE (NEGATIVE) 02/27/17 15:00 Urine Urobilinogen 0.2 E.U./dL (0.2 - 1.0) 02/27/17 15:00 Ur Leukocyte Esterase LARGE (NEGATIVE) H 02/27/17 15:00 Urine RBC 10-25 /hpf (0-5) H 02/27/17 15:00 Urine WBC >100 /hpf (0-5) H 02/27/17 15:00 Ur Epithelial Cells MODERATE /lpf (FEW) 02/27/17 15:00 Urine Bacteria MODERATE /hpf (NONE SEEN) H 02/27/17 15:00 Urine Yeast MODERATE /hpf (NONE SEEN) H 02/20/17 16:15 Blood Type A POSITIVE 03/10/17 11:00 Antibody Screen NEGATIVE 03/10/17 11:00 Crossmatch See Detail 03/10/17 11:00 - Physical Exam Vitals and I&O: Vital Signs Temp 98.2 F 03/10/17 15:00 Pulse 83 03/10/17 15:33 Resp 15 03/10/17 15:00 BP 108/53 03/10/17 16:52 Pulse Ox 100 03/10/17 16:00 Intake & Output 03/09/17 03/10/17 03/10/17 18:59 06:59 18:59 Intake Total 773.372 842.151 292.706 Output Total 500 400 Balance 273.372 442.151 292.706 Weight (lbs) 121.835 kg 121.835 kg Intake: Intake, IV Amount 593.372 562.151 292.706 D5-0.9%Ns 1,000 ml @ 75 308.75 mls/hr IV .[id number] [facility] Rx #:[id number] Meropenem 1 gm In 100 100 100 Dextrose 5% 100 ml @ 100 mls/hr IV Q12H [facility] Rx#: [id number] Norepinephrine 8 mg In 69.789 57.985 12.706 Sodium Chloride 0.9% 250 ml @ Per Protocol IV TITR [facility]RIA Rx#:[id number] Pantoprazole 80 mg In 14.833 204.166 80 Sodium Chloride 0.9% 100 ml @ 10 mls/hr IV Q10H [facility] Rx#:[id number] metroNIDAZOLE 500mg/NS 100 200 100 100mL 500 mg In 100 ml @ 100 mls/hr IV Q8HR [facility] Rx #:[id number] Tube Feeding 180 180 Other 100 Output: Urine 500 400 Other: # Bowel Movements 1 1 Stool Characteristics Liquid Liquid Liquid Brown Brown Active Medications: Current Medications Acetaminophen (Tylenol) 650 mg PO Q4HR PRN PRN Reason: Pain (Mild) Stop: 04/20/17 12:01 Last Admin: 03/06/17 03:23 Dose: 650 mg Albuterol/Ipratropium (Duoneb Neb) 3 ml HHN Q4HRT PRN PRN Reason: Wheezing Stop: 04/27/17 19:59 Last Admin: 02/28/17 03:18 Dose: 3 ml Albuterol/Ipratropium (Duoneb Neb) 3 ml HHN [id number] [facility] Stop: 04/27/17 19:59 Last Admin: 03/10/17 13:09 Dose: 3 ml Chlorhexidine Gluconate (Peridex) 15 ml MM 0800,2000 [facility] Stop: 04/28/17 19:59 Last Admin: 03/10/17 08:54 Dose: 15 ml Diltiazem HCl (Cardizem) 5 mg IVP Q4H PRN PRN Reason: HR > 120 Stop: 04/27/17 19:59 Last Admin: 02/27/17 04:59 Dose: 5 mg Docusate Sodium (Colace) 100 mg PO BID [facility] Stop: 04/20/17 16:59 Last Admin: 03/10/17 16:50 Dose: Not Given Furosemide (Lasix) 40 mg IVP BID [facility] Stop: 05/08/17 08:59 Last Admin: 03/10/17 16:52 Dose: 40 mg Pantoprazole Sodium 80 mg/ (Sodium Chloride) 100 mls @ 10 mls/hr IV Q10H [facility] Stop: 04/20/17 08:59 Last Admin: 03/10/17 16:52 Dose: 10 mls/hr Phenylephrine HCl 10 mg/ (Sodium Chloride) 250 mls @ 0 mls/hr IV TITR PATRIA; Per Protocol PRN Reason: Protocol Stop: 04/28/17 07:59 Norepinephrine Bitartrate 8 mg (/ Sodium Chloride) 258 mls @ 0 mls/hr IV TITR PATRIA; Per Protocol PRN Reason: Protocol Stop: 04/28/17 09:59 Last Titration: 03/10/17 09:17 Dose: 0 mcg/min, 0 mls/hr Meropenem 1 gm/ Dextrose 100 mls @ 100 mls/hr IV Q12H [facility] Stop: 04/28/17 12:29 Last Infusion: 03/10/17 12:35 Dose: Infused Metronidazole (Flagyl) 500 mg in 100 mls @ 100 mls/hr IV Q8HR [facility] Stop: 05/04/17 20:59 Last Infusion: 03/10/17 13:45 Dose: Infused Insulin Aspart (Novolog Insulin Sliding Scale) 0 units SUBQ Q6H [facility]RIA PRN Reason: Protocol Stop: 05/03/17 00:00 Last Admin: 03/10/17 11:35 Dose: Not Given Metoclopramide HCl (Reglan) 5 mg IVP Q6HR [facility] Stop: 05/05/17 17:59 Last Admin: 03/10/17 11:31 Dose: 5 mg Mirtazapine (Remeron) 15 mg PO HS [facility]RIA PRN Reason: Protocol Stop: 04/26/17 20:59 Last Admin: 03/09/17 20:32 Dose: 15 mg Miscellaneous (Probiotic Screen) 1 ea MC PRN PRN PRN Reason: PROTOCOL Stop: 04/21/17 16:25 Morphine Sulfate (Morphine) 1 mg IVP Q4HR PRN PRN Reason: Severe Pain Stop: 05/04/17 14:13 Last Admin: 03/10/17 02:50 Dose: 1 mg Nitroglycerin (Nitrostat) 0.4 mg SL Q5MIN PRN PRN Reason: Chest Pain Stop: 04/20/17 12:01 Nystatin (Nystop) 100,000 units TP BID PRN PRN Reason: SKIN EXCORIATIONS Stop: 04/21/17 15:35 Last Admin: 03/08/17 06:00 Dose: 100,000 units Ondansetron HCl (Zofran) 4 mg IV Q6H PRN PRN Reason: Nausea Stop: 04/20/17 03:38 General: No acute distress HEENT: Atraumatic, EOMI Neck: Supple, JVD, +2 carotid pulse wo bruit Cardiovascular: Regular rate, Normal S1, Normal S2 Lungs: Other (coarse rhonchi) Abdomen: Bowel sounds, Soft Extremities: Edema, Other ((+3) bipedal edema) Neurological: Sensation intact Skin: no Rash Psych/Mental Status: Mood NL - Procedures Procedures: Procedures Procedure Code Date INSERT EMERGENCY AIRWAY 03626 02/19/17 INSERTION OF ENDOTRACHEAL AIRWAY INTO [place]HE[place], VIA OPENING [id number] 02/19/17 RESPIRATORY VENTILATION, GREATER THAN 96 CONSECUTIVE HOURS [id number] 02/19/17 VENT MGMT INPAT INIT DAY 77570 02/19/17 VENT MGMT INPAT SUBQ DAY 60713 02/19/17 Assessment/Plan - Problem List Patient Problems: All Active Problems Acute kidney failure (Acute) 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 Azotemia (Acute) R79.89 Bradycardia (Acute) R00.1 COPD (chronic obstructive pulmonary disease) (Acute) Cardiomegaly (Acute) I51.7 Chest pain (Acute) R07.9 Decubitus ulcer of buttock, 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 Nutritional Asmnt/Malnutr-PDOC - Dietary Evaluation Malnutrition Findings (Please click <Entered> for more info): Nutritional Asmnt/Malnutrition Start: 02/21/17 18: 20 Text: Status: Complete Freq: Document 02/21/17 18:21 LCHENG (Rec: 02/21/17 18:32 LCHENG [id number]) Nutritional Asmnt/Malnutrition Patient General Information Nutritional Screening High Risk Consult Diagnosis gastric outlet obstruction Pertinent Medical Hx/Surgical Hx HTN, OA, DM, GERD Subjective Information Pt seen sleeping at the time of visit, attempted x 2. Spoke with RN, pt consumed 50% of breakfast and only the soup of lunch today, not much appetite, no complain of N/V. Pt will be NPO from midnight for GI exam tommorrow. Current Diet Order/ Nutrition Support no added salt 4gm, CCHO, no eggs, banana and cereal in morning Pertinent Medications colace, lasix, novolog, levaquin, piperacillin Pertinent Labs 02/20 Na 137, K 4.5, Cl 104, BUN 55, Cr 1.6, Glucose 137, POC 126-199 since admit, Ca 8. 3 Nutritional Hx/Data Height 1.57 m Height (Calculated Centimeters) 157.5 Current Weight (lbs) 97.023 kg Weight (Calculated Kilograms) 97.0 Weight (Calculated Grams) 75924.4 [place] Body Weight 110 % [place] Body Weight 194 Body Mass Index (BMI) 39.1 Weight Status Obese GI Symptoms GI Symptoms None Last BM none Difficult in: None Skin Integrity/Comment: multiple maceration, abrasion to right/left medial thigh Current %PO Poor (25-49%) Estimated Nutritional Goals BEE in Kcals: Adj wt of IBW Calories/Kcals/Kg 27-32 Kcals Calculated Protein: Adj wt of IBW Protein g/k-1.2 Protein Calculated 62-74 Fluid: ml Nutritional Problem 1. Problem Problem inadequate PO intake Etiology poor appetite Signs/Symptoms: PO intake 25-50% Malnutrition Alert Protein-Calorie Malnutrition N/A Is there a minimum of two criteria No selected? Query Text:Check all the applicable criteria. A minimum of two criteria are recommended for diagnosis of either severe or non-severe malnutrition. Intervention/Recommendation Comments 1. Continue with current diet as ordered. 2. Monitor PO intake, GI symptons, wt, labs and skin integrity 3. F/U as high risk in 2-3 days, 02/23-02/24 Expected Outcomes/Goals Expected Outcomes/Goals 1. PO intake to meet at least 75% of nutritional needs. 2. Wt stability, skin to remain intact, labs to improve
[2017-03-11] MEDS: INSULIN ASPART SLIDING SCALE 100 UNITS/ML UNIT SUBQ SCH ×4 (00:20→17:51)
[2017-03-11] MEDS: Metoclopramide 5 mg/mL 2mL Vial IVP SCH ×4 (00:30→17:51)
[2017-03-11] MEDS: Morphine Sulfate 2 mg/mL 1mL Syr IVP PRN ×2 (02:14→08:35)
[2017-03-11] MEDS: metroNIDAZOLE 500mg/NS 100mL 500 MG/100 ML BAG IV SCH ×3 (04:33→20:30)
[2017-03-11] MEDS: Albuterol/Ipratropium Neb 3 ML AERS HHN SCH ×3 (07:33→18:33)
[2017-03-11] MEDS: Multivitamin w/ Minerals Tab PO SCH (08:32)
[2017-03-11] MEDS: Chlorhexidine Gluconate 0.12% 15mL Mouthwash MM SCH ×2 (08:35→20:00)
--- NOTE | 2017-03-11 08:47 | Diagnostic Imaging Report ---
Exam: Chest x-ray portable HISTORY: Congestive heart failure. Findings: Portable summation of chest at 0809 hours reviewed compared to prior study 03/09/2017. The study demonstrates endotracheal tube 4 cm above abhishek. Mediastinal structures midline the heart is enlarged, is evidence for extensive congestive heart failure changes bilaterally with superimposed pneumonic infiltrates. The costophrenic angles are blunted with small effusions. The heart is enlarged aorta is calcified. Visualized bony thorax is intact. IMPRESSION: Increasing congestive heart failure, superimposed bilateral pneumonia and effusions follow-up examination recommended.
[2017-03-11 08:50] LABS: ALB/GLOB RATIO 1.3 (1.0-1.8); ALBUMIN 2.9 gm/dL (3.7-5.3); BILIRUBIN,TOTAL 0.5 mg/dL (0.3-1.0); CARBON DIOXIDE 18.7 mEq/L (21.0-31.0); CREATININE - SERUM 1.6 mg/dL (0.6-1.2); GFR AFRICAN-AMERICAN 41.1 ml/min (>90); POTASSIUM SERUM 3.7 mEq/L (3.5-5.1); TOTAL PROTEIN,SERUM 5.2 gm/dL (6.0-8.3)
[2017-03-11 08:59] LABS: % EOSINOPHILS 6.4 % (0.0-5.0); % LYMPHOCYTES 12.6 % (20.0-50.0); % MONOCYTES 7.4 % (2.0-10.0); % NEUTROPHILS 73.6 % (40.0-80.0); EOSINOPHILE ABSOLUTE 0.7 Th/cmm (0.1-0.4); HEMATOCRIT 23.8 % (41.0-60); LYMPHOCYTE ABSOLUTE 1.4 Th/cmm (1.5-3.0); MEAN CELL VOLUME 88.3 fl (81-100); MEAN CORPUSCULAR HEMOGLOBIN 28.9 pg (27.0-31.0); MEAN CORPUSCULAR HGB CONC 32.8 pg (28.0-36.0); MEAN PLATELET VOLUME 8.5 fl; MONOCYTE ABSOLUTE 0.8 Th/cmm (0.3-1.0); RED CELL DISTRIBUTION WIDTH 13.7 % (11.5-20.0); WHITE BLOOD COUNT 10.9 Th/cmm (4.8-10.8)
--- NOTE | 2017-03-11 09:01 | GI Progress Note ---
Subjective - Review of Systems Subjective: NO EVENTS MICAELA NGT FEEDS Objective - Results Result Diagrams: 03/10/17 06:10 03/11/17 08:15 Recent Labs: Laboratory Last Values WBC 13.1 Th/cmm (4.8-10.8) H 03/10/17 06:10 RBC 2.68 Mil/cmm (3.80-5.20) L 03/10/17 06:10 Hgb 7.7 gm/dL (12-16) L* 03/10/17 06:10 Hct 23.3 % (41.0-60) L 03/10/17 06:10 MCV 86.9 fl (81-100) 03/10/17 06:10 MCH 28.8 pg (27.0-31.0) 03/10/17 06:10 MCHC Differential 33.1 pg (28.0-36.0) 03/10/17 06:10 RDW 13.7 % (11.5-20.0) 03/10/17 06:10 Plt Count 26 Th/cmm (150-400) L* 03/10/17 06:10 MPV 9.6 fl 03/10/17 06:10 Neutrophils % 78.7 % (40.0-80.0) 03/10/17 06:10 Band Neutrophils % 5 % (0-10) 03/06/17 06:00 Lymphocytes % 9.4 % (20.0-50.0) L 03/10/17 06:10 Monocytes % 6.3 % (2.0-10.0) 03/10/17 06:10 Eosinophils % 5.3 % (0.0-5.0) H 03/10/17 06:10 Basophils % 0.3 % (0.0-2.0) 03/10/17 06:10 Neutrophils (Manual) 85 % (40-80) H 03/06/17 06:00 Lymphocytes 4 % (20-50) L 03/06/17 06:00 Monocytes 3 % (2-10) 03/06/17 06:00 Eosinophils 3 % (0-5) 03/06/17 06:00 Metamyelocytes 1 % (0-0) H 02/18/17 23:35 Hypochromia 1+ 02/18/17 23:35 Platelet Estimate DECREASED PLATELETS (NORMAL) 03/06/17 06:00 Platelet Morphology (NORMAL) 03/04/17 08:00 Plt Count 26 Th/cmm (150-750) L* 03/10/17 06:10 PT 13.5 SECONDS (9.5-11.5) H 03/10/17 06:10 INR 1.28 (0.5-1.4) 03/10/17 06:10 PTT (Actin FS) 55.4 SECONDS (26.0-38.0) H 03/10/17 06:10 Fibrinogen 242.0 mg/dL (200.0-400.0) 03/10/17 06:10 D-Dimer 1640 ng/mL (100-400) H 03/10/17 06:10 Specimen Source Arterial 03/10/17 10:22 Sample Site Right Radial 03/10/17 10:22 pH 7.30 (7.35-7.45) L 03/10/17 10:22 pCO2 39.0 mmHg (35.0-45.0) 03/10/17 10:22 pO2 68.0 mmHg (80.0-100.0) L 03/10/17 10:22 HCO3 19.6 mEq/L (20.0-26.0) L 03/10/17 10:22 Base Excess -6.7 mEq/L (-3.0-3.0) L 03/10/17 10:22 O2 Saturation 91.0 % (92.0-100.0) L 03/10/17 10:22 Jorje Test PASS 03/10/17 10:22 Vent Rate 4 03/10/17 10:22 Inspired O2 30 03/10/17 10:22 Tidal Volume 550 03/10/17 10:22 PEEP 5 03/10/17 10:22 Pressure (ins/psv/peep) 15 03/10/17 10:22 Critical Value PW 03/10/17 10:22 Sodium 137 mEq/L (136-145) 03/11/17 08:15 Potassium 3.7 mEq/L (3.5-5.1) 03/11/17 08:15 Chloride 110 mEq/L (98-107) H 03/11/17 08:15 Carbon Dioxide 18.7 mEq/L (21.0-31.0) L 03/11/17 08:15 Anion Gap 12.0 (7.0-16.0) 03/11/17 08:15 BUN 49 mg/dL (7-25) H 03/11/17 08:15 Creatinine 1.6 mg/dL (0.6-1.2) H 03/11/17 08:15 Est GFR ( Amer) 41.1 ml/min (>90) 03/11/17 08:15 Est GFR (Non-Af Amer) 34.0 ml/min 03/11/17 08:15 BUN/Creatinine Ratio 30.6 03/11/17 08:15 Glucose 145 mg/dL (70-105) H 03/11/17 08:15 POC Glucose 147 MG/DL (70 - 105) H 03/11/17 04:32 Hemoglobin A1c % 5.8 % (4.0-6.0) 02/22/17 10:38 Whole Bld Lactic Acid 2.40 mmol/L (0.60-1.99) H* 02/27/17 15:04 Calcium 8.0 mg/dL (8.6-10.3) L 03/11/17 08:15 Phosphorus 2.5 mg/dL (2.5-5.0) 03/01/17 09:15 Magnesium 2.1 mg/dL (1.9-2.7) 03/01/17 09:15 Total Bilirubin 0.5 mg/dL (0.3-1.0) 03/11/17 08:15 Direct Bilirubin 0.09 mg/dL (0.0-0.2) 02/18/17 23:35 AST 19 U/L (13-39) 03/11/17 08:15 ALT 5 U/L (7-52) L 03/11/17 08:15 Alkaline Phosphatase 69 U/L (34-104) 03/11/17 08:15 Ammonia 38 umol/L (16-53) 03/01/17 17:28 B-Natriuretic Peptide 158.0 pg/mL (5.0-100.0) H 03/04/17 15:39 Total Protein 5.2 gm/dL (6.0-8.3) L 03/11/17 08:15 Albumin 2.9 gm/dL (3.7-5.3) L 03/11/17 08:15 Globulin 2.3 gm/dL 03/11/17 08:15 Albumin/Globulin Ratio 1.3 (1.0-1.8) 03/11/17 08:15 Amylase 36 U/L (29-103) 02/18/17 23:35 Lipase 10 U/L (11-82) L 02/18/17 23:35 Vitamin B12 860 pg/mL (232-1245) 02/26/17 04:45 Free T4 1.04 ng/dL (0.82-1.77) 02/25/17 04:50 Free T3 0.7 pg/mL (2.0-4.4) L 02/25/17 04:50 TSH 0.84 uIU/ml (0.34-5.60) 02/25/17 04:50 Total Cortisol 12.3 02/24/17 07:50 Urine Source [place] 02/27/17 15:00 Urine Color YELLOW 02/27/17 15:00 Urine Clarity CLOUDY (CLEAR) H 02/27/17 15:00 Urine pH 5.5 (4.6 - 8.0) 02/27/17 15:00 Ur Specific [place] <= 1.005 (1.005-1.030) 02/27/17 15:00 Urine Protein TRACE mg/dL (NEGATIVE) 02/27/17 15:00 Urine Glucose (UA) NEGATIVE mg/dL (NEGATIVE) 02/27/17 15:00 Urine Ketones NEGATIVE mg/dL (NEGATIVE) 02/27/17 15:00 Urine Blood LARGE (NEGATIVE) H 02/27/17 15:00 Urine Nitrate NEGATIVE (NEGATIVE) 02/27/17 15:00 Urine Bilirubin NEGATIVE (NEGATIVE) 02/27/17 15:00 Urine Urobilinogen 0.2 E.U./dL (0.2 - 1.0) 02/27/17 15:00 Ur Leukocyte Esterase LARGE (NEGATIVE) H 02/27/17 15:00 Urine RBC 10-25 /hpf (0-5) H 02/27/17 15:00 Urine WBC >100 /hpf (0-5) H 02/27/17 15:00 Ur Epithelial Cells MODERATE /lpf (FEW) 02/27/17 15:00 Urine Bacteria MODERATE /hpf (NONE SEEN) H 02/27/17 15:00 Urine Yeast MODERATE /hpf (NONE SEEN) H 02/20/17 16:15 Blood Type A POSITIVE 03/10/17 11:00 Antibody Screen NEGATIVE 03/10/17 11:00 Crossmatch See Detail 03/10/17 11:00 - Physical Exam Vitals and I&O: Vital Signs Temp 98.2 F 03/11/17 04:00 Pulse 77 03/11/17 07:33 Resp 17 03/11/17 06:00 BP 104/44 03/11/17 08:35 Pulse Ox 99 03/11/17 07:33 Intake & Output 03/10/17 03/11/17 03/11/17 18:59 06:59 18:59 Intake Total 292.706 700 200 Output Total 700 Balance 292.706 0 200 Weight (lbs) 122.924 kg Intake: Intake, IV Amount 292.706 100 200 Meropenem 1 gm In 100 100 Dextrose 5% 100 ml @ 100 mls/hr IV Q12H [facility] Rx#: [id number] Norepinephrine 8 mg In 12.706 Sodium Chloride 0.9% 250 ml @ Per Protocol IV TITR PATRIA Rx#:[id number] Pantoprazole 80 mg In 80 Sodium Chloride 0.9% 100 ml @ 10 mls/hr IV Q10H [facility] Rx#:[id number] metroNIDAZOLE 500mg/NS 100 100 100 100mL 500 mg In 100 ml @ 100 mls/hr IV Q8HR [facility] Rx #:[id number] Blood Product 600 Output: Urine 700 Other: # Bowel Movements 1 Stool Characteristics Liquid Liquid Brown Brown Active Medications: Current Medications Acetaminophen (Tylenol) 650 mg PO Q4HR PRN PRN Reason: Pain (Mild) Stop: 04/20/17 12:01 Last Admin: 03/06/17 03:23 Dose: 650 mg Albuterol/Ipratropium (Duoneb Neb) 3 ml HHN Q4HRT PRN PRN Reason: Wheezing Stop: 04/27/17 19:59 Last Admin: 02/28/17 03:18 Dose: 3 ml Albuterol/Ipratropium (Duoneb Neb) 3 ml HHN [id number] [facility] Stop: 04/27/17 19:59 Last Admin: 03/11/17 07:33 Dose: 3 ml Chlorhexidine Gluconate (Peridex) 15 ml MM 0800,1999 [facility] Stop: 04/28/17 19:59 Last Admin: 03/11/17 08:35 Dose: 15 ml Diltiazem HCl (Cardizem) 5 mg IVP Q4H PRN PRN Reason: HR > 120 Stop: 04/27/17 19:59 Last Admin: 02/27/17 04:59 Dose: 5 mg Docusate Sodium (Colace) 100 mg PO BID [facility] Stop: 04/20/17 16:59 Last Admin: 03/11/17 08:33 Dose: Not Given Furosemide (Lasix) 40 mg IVP BID [facility] Stop: 05/08/17 08:59 Last Admin: 03/11/17 08:35 Dose: 40 mg Pantoprazole Sodium 80 mg/ (Sodium Chloride) 100 mls @ 10 mls/hr IV Q10H [facility] Stop: 04/20/17 08:59 Last Admin: 03/10/17 16:52 Dose: 10 mls/hr Phenylephrine HCl 10 mg/ (Sodium Chloride) 250 mls @ 0 mls/hr IV TITR PATRIA; Per Protocol PRN Reason: Protocol Stop: 04/28/17 07:59 Norepinephrine Bitartrate 8 mg (/ Sodium Chloride) 258 mls @ 0 mls/hr IV TITR PATRIA; Per Protocol PRN Reason: Protocol Stop: 04/28/17 09:59 Last Titration: 03/10/17 09:17 Dose: 0 mcg/min, 0 mls/hr Meropenem 1 gm/ Dextrose 100 mls @ 100 mls/hr IV Q12H [facility] Stop: 04/28/17 12:29 Last Infusion: 03/11/17 07:26 Dose: Infused Metronidazole (Flagyl) 500 mg in 100 mls @ 100 mls/hr IV Q8HR [facility] Stop: 05/04/17 20:59 Last Infusion: 03/11/17 07:26 Dose: Infused Insulin Aspart (Novolog Insulin Sliding Scale) 0 units SUBQ Q6H PATRIA PRN Reason: Protocol Stop: 05/03/17 00:00 Last Admin: 03/11/17 06:35 Dose: Not Given Metoclopramide HCl (Reglan) 5 mg IVP Q6HR [facility] Stop: 05/05/17 17:59 Last Admin: 03/11/17 07:24 Dose: Not Given Mirtazapine (Remeron) 15 mg PO HS PATRIA PRN Reason: Protocol Stop: 04/26/17 20:59 Last Admin: 03/10/17 21:20 Dose: 15 mg Miscellaneous (Probiotic Screen) 1 ea MC PRN PRN PRN Reason: PROTOCOL Stop: 04/21/17 16:25 Morphine Sulfate (Morphine) 1 mg IVP Q4HR PRN PRN Reason: Severe Pain Stop: 05/04/17 14:13 Last Admin: 03/11/17 08:35 Dose: 1 mg Nitroglycerin (Nitrostat) 0.4 mg SL Q5MIN PRN PRN Reason: Chest Pain Stop: 04/20/17 12:01 Nystatin (Nystop) 100,000 units TP BID PRN PRN Reason: SKIN EXCORIATIONS Stop: 04/21/17 15:35 Last Admin: 03/08/17 06:00 Dose: 100,000 units Ondansetron HCl (Zofran) 4 mg IV Q6H PRN PRN Reason: Nausea Stop: 04/20/17 03:38 General: No acute distress HEENT: Atraumatic, EOMI Neck: Supple, JVD, +2 carotid pulse wo bruit Cardiovascular: Regular rate, Normal S1, Normal S2 Lungs: Other (coarse rhonchi) Abdomen: Bowel sounds, Soft Extremities: Edema, Other ((+3) bipedal edema) Neurological: Sensation intact Skin: no Rash Psych/Mental Status: Mood NL - Procedures Procedures: Procedures Procedure Code Date INSERT EMERGENCY AIRWAY [id number] 02/19/17 INSERTION OF ENDOTRACHEAL AIRWAY INTO [place], VIA OPENING [id number] 02/19/17 RESPIRATORY VENTILATION, GREATER THAN 96 CONSECUTIVE HOURS [id number] 02/19/17 VENT MGMT INPAT INIT DAY 02/19/17 VENT MGMT INPAT SUBQ DAY 02/19/17 Assessment/Plan - Problem List Patient Problems: All Active Problems Acute kidney failure (Acute) 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.10 Azotemia (Acute) R79.89 Bradycardia (Acute) R00.1 COPD (chronic obstructive pulmonary disease) (Acute) Cardiomegaly (Acute) I51.7 Chest pain (Acute) R07.9 Decubitus ulcer of buttock, 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 - Assessment Assessment: 71 YO FEMALE WITH ALLEGED GASTRIC OUTLET OBSTRUCTION EGD SHOWED GASTRITIS WITHOUT OBSTRUCTION MICAELA NGT FEEDS AT LOW RATE 1.CONT NGT FEEDS MICAELA 2.CONT SUPP CARE 3.SBFT TO R/O ILEUS VS SBO
[2017-03-11 09:05] LABS: HEMOGLOBIN 7.8 gm/dL (12-16); PLATELET COUNT 22 Th/cmm (150-400)
[2017-03-11] MEDS: Pantoprazole 80 MG in Sodium Chloride 0.9% 100 ML IV SCH ×3 (09:42→19:45)
--- NOTE | 2017-03-11 09:44 | Diagnostic Imaging Report ---
Exam: Small bowel follow-through. IMPRESSION ileus versus small bowel obstruction. Findings: The KUB of the abdomen reviewed. The study demonstrates NG tube passes stomach. The stomach distended with air. Inferior vena cava filter is noted. After administration of contrast material via the NG tube there is normal opacification stomach. Gastroesophageal reflux is noted. Delayed views of the abdomen obtained at 4 hours interval demonstrates reflux into into the right colon. There is no evidence of obstruction. Small bowel loops are of normal caliber. Air distention of colon appreciated. IMPRESSION: no evidence of small bowel obstruction.
[2017-03-11 09:48] LABS: pH 7.29 (7.35-7.45)
[2017-03-11 09:49] LABS: ALLEN TEST YES
--- NOTE | 2017-03-11 10:55 | History & Physical ---
ADMIT DATE: 03/10/2017 REFERRING PHYSICIAN: Dr. Pan. REASON FOR CONSULTATION: Possible tracheostomy. Thank you for referring this patient to me. HISTORY OF PRESENT ILLNESS: A 71-year-old female admitted through ER because of vomiting of blood. The patient has been seen by multiple consultants. Because of increasing shortness of breath the patient was intubated orally and has been intubated since for almost 2 weeks. Question of need for tracheostomy is raised and this will be decided on by Dr. Pan, pulmonary solutions consultant. The most recent laboratories showed the hemoglobin at 7.7 grams, WBC at 13,100. The platelet count is very low at 26,000. The chemistry: BUN is high at 40 and a creatinine of 1.6. The liver function tests are essentially normal. Chest x-ray yesterday shows persistent mild CHF and small bilateral effusions, pneumonia of the right lung base. She has undergone a small bowel series and this showed no evidence of small-bowel obstruction. The patient's FiO2 is 30% with a saturation that is reasonable. Attempt to place a PICC line has been unsuccessful and request also for placement of central line has been made. PHYSICAL EXAMINATION: The patient is extremely obese, has a tube orally. She is awake and alert, however. PLAN: Attempt will be made to put a central line and Dr. Pan will make a decision on tracheostomy. [facility]# [id number]
--- NOTE | 2017-03-11 12:59 | General Progress Note ---
Subjective - Review of Systems Service Date: 03/11/17 Subjective: stuporous, on vent Objective - Results Result Diagrams: 03/11/17 08:15 03/11/17 08:15 Recent Labs: Laboratory Last Values WBC 10.9 Th/cmm (4.8-10.8) H 03/11/17 08:15 RBC 2.70 Mil/cmm (3.80-5.20) L 03/11/17 08:15 Hgb 7.8 gm/dL (12-16) L* 03/11/17 08:15 Hct 23.8 % (41.0-60) L 03/11/17 08:15 MCV 88.3 fl (81-100) 03/11/17 08:15 MCH 28.9 pg (27.0-31.0) 03/11/17 08:15 MCHC Differential 32.8 pg (28.0-36.0) 03/11/17 08:15 RDW 13.7 % (11.5-20.0) 03/11/17 08:15 Plt Count 22 Th/cmm (150-400) L* 03/11/17 08:15 MPV 8.5 fl 03/11/17 08:15 Neutrophils % 73.6 % (40.0-80.0) 03/11/17 08:15 Band Neutrophils % 5 % (0-10) 03/06/17 06:00 Lymphocytes % 12.6 % (20.0-50.0) L 03/11/17 08:15 Monocytes % 7.4 % (2.0-10.0) 03/11/17 08:15 Eosinophils % 6.4 % (0.0-5.0) H 03/11/17 08:15 Basophils % 0.0 % (0.0-2.0) 03/11/17 08:15 Neutrophils (Manual) 85 % (40-80) H 03/06/17 06:00 Lymphocytes 4 % (20-50) L 03/06/17 06:00 Monocytes 3 % (2-10) 03/06/17 06:00 Eosinophils 3 % (0-5) 03/06/17 06:00 Metamyelocytes 1 % (0-0) H 02/18/17 23:35 Hypochromia 1+ 02/18/17 23:35 Platelet Estimate DECREASED PLATELETS (NORMAL) 03/06/17 06:00 Platelet Morphology (NORMAL) 03/04/17 08:00 Plt Count 26 Th/cmm (150-750) L* 03/10/17 06:10 PT 13.5 SECONDS (9.5-11.5) H 03/10/17 06:10 INR 1.28 (0.5-1.4) 03/10/17 06:10 PTT (Actin FS) 39.3 SECONDS (26.0-38.0) H 03/11/17 08:15 Fibrinogen 243.0 mg/dL (200.0-400.0) 03/11/17 08:15 D-Dimer 1640 ng/mL (100-400) H 03/10/17 06:10 Specimen Source Arterial 03/11/17 09:40 Sample Site Right Radial 03/11/17 09:40 pH 7.29 (7.35-7.45) L 03/11/17 09:40 pCO2 44.0 mmHg (35.0-45.0) 03/11/17 09:40 pO2 66.0 mmHg (80.0-100.0) L 03/11/17 09:40 HCO3 20.6 mEq/L (20.0-26.0) 03/11/17 09:40 Base Excess -5.3 mEq/L (-3.0-3.0) L 03/11/17 09:40 O2 Saturation 90.0 % (92.0-100.0) L 03/11/17 09:40 Jorje Test YES 03/11/17 09:40 Vent Rate 4 03/11/17 09:40 Inspired O2 30 03/11/17 09:40 Tidal Volume 550 03/11/17 09:40 PEEP 5 03/11/17 09:40 Pressure (ins/psv/peep) 15 03/11/17 09:40 Critical Value E.HERNANDEZ 03/11/17 09:40 Sodium 137 mEq/L (136-145) 03/11/17 08:15 Potassium 3.7 mEq/L (3.5-5.1) 03/11/17 08:15 Chloride 110 mEq/L (98-107) H 03/11/17 08:15 Carbon Dioxide 18.7 mEq/L (21.0-31.0) L 03/11/17 08:15 Anion Gap 12.0 (7.0-16.0) 03/11/17 08:15 BUN 49 mg/dL (7-25) H 03/11/17 08:15 Creatinine 1.6 mg/dL (0.6-1.2) H 03/11/17 08:15 Est GFR ( Amer) 41.1 ml/min (>90) 03/11/17 08:15 Est GFR (Non-Af Amer) 34.0 ml/min 03/11/17 08:15 BUN/Creatinine Ratio 30.6 03/11/17 08:15 Glucose 145 mg/dL (70-105) H 03/11/17 08:15 POC Glucose 147 MG/DL (70 - 105) H 03/11/17 04:32 Hemoglobin A1c % 5.8 % (4.0-6.0) 02/22/17 10:38 Whole Bld Lactic Acid 2.40 mmol/L (0.60-1.99) H* 02/27/17 15:04 Calcium 8.0 mg/dL (8.6-10.3) L 03/11/17 08:15 Phosphorus 2.5 mg/dL (2.5-5.0) 03/01/17 09:15 Magnesium 2.1 mg/dL (1.9-2.7) 03/01/17 09:15 Total Bilirubin 0.5 mg/dL (0.3-1.0) 03/11/17 08:15 Direct Bilirubin 0.09 mg/dL (0.0-0.2) 02/18/17 23:35 AST 19 U/L (13-39) 03/11/17 08:15 ALT 5 U/L (7-52) L 03/11/17 08:15 Alkaline Phosphatase 69 U/L (34-104) 03/11/17 08:15 Ammonia 38 umol/L (16-53) 03/01/17 17:28 B-Natriuretic Peptide 158.0 pg/mL (5.0-100.0) H 03/04/17 15:39 Total Protein 5.2 gm/dL (6.0-8.3) L 03/11/17 08:15 Albumin 2.9 gm/dL (3.7-5.3) L 03/11/17 08:15 Globulin 2.3 gm/dL 03/11/17 08:15 Albumin/Globulin Ratio 1.3 (1.0-1.8) 03/11/17 08:15 Amylase 36 U/L (29-103) 02/18/17 23:35 Lipase 10 U/L (11-82) L 02/18/17 23:35 Vitamin B12 860 pg/mL (232-1245) 02/26/17 04:45 Free T4 1.04 ng/dL (0.82-1.77) 02/25/17 04:50 Free T3 0.7 pg/mL (2.0-4.4) L 02/25/17 04:50 TSH 0.84 uIU/ml (0.34-5.60) 02/25/17 04:50 Total Cortisol 12.3 02/24/17 07:50 Urine Source [place] 02/27/17 15:00 Urine Color YELLOW 02/27/17 15:00 Urine Clarity CLOUDY (CLEAR) H 02/27/17 15:00 Urine pH 5.5 (4.6 - 8.0) 02/27/17 15:00 Ur Specific [place] <= 1.005 (1.005-1.030) 02/27/17 15:00 Urine Protein TRACE mg/dL (NEGATIVE) 02/27/17 15:00 Urine Glucose (UA) NEGATIVE mg/dL (NEGATIVE) 02/27/17 15:00 Urine Ketones NEGATIVE mg/dL (NEGATIVE) 02/27/17 15:00 Urine Blood LARGE (NEGATIVE) H 02/27/17 15:00 Urine Nitrate NEGATIVE (NEGATIVE) 02/27/17 15:00 Urine Bilirubin NEGATIVE (NEGATIVE) 02/27/17 15:00 Urine Urobilinogen 0.2 E.U./dL (0.2 - 1.0) 02/27/17 15:00 Ur Leukocyte Esterase LARGE (NEGATIVE) H 02/27/17 15:00 Urine RBC 10-25 /hpf (0-5) H 02/27/17 15:00 Urine WBC >100 /hpf (0-5) H 02/27/17 15:00 Ur Epithelial Cells MODERATE /lpf (FEW) 02/27/17 15:00 Urine Bacteria MODERATE /hpf (NONE SEEN) H 12/31/17 15:00 Urine Yeast MODERATE /hpf (NONE SEEN) H 02/20/17 16:15 Blood Type A POSITIVE 03/10/17 11:00 Antibody Screen NEGATIVE 03/10/17 11:00 Crossmatch See Detail 03/10/17 11:00 - Physical Exam Vitals and I&O: Vital Signs Temp 97.3 F 03/11/17 10:00 Pulse 75 03/11/17 12:00 Resp 14 03/11/17 12:00 BP 116/94 03/11/17 12:00 Pulse Ox 100 03/11/17 12:00 Intake & Output 03/10/17 03/11/17 03/11/17 18:59 06:59 18:59 Intake Total 292.706 800 200.167 Output Total 700 Balance 292.706 100 200.167 Weight (lbs) 122.924 kg Intake: Intake, IV Amount 292.706 200 200.167 Meropenem 1 gm In 100 100 Dextrose 5% 100 ml @ 100 mls/hr IV Q12H [facility] Rx#: [id number] Norepinephrine 8 mg In 12.706 Sodium Chloride 0.9% 250 ml @ Per Protocol IV TITR PATRIA Rx#:[id number] Pantoprazole 80 mg In 80 100 0.167 Sodium Chloride 0.9% 100 ml @ 10 mls/hr IV Q10H [facility] Rx#:[id number] metroNIDAZOLE 500mg/NS 100 100 100 100mL 500 mg In 100 ml @ 100 mls/hr IV Q8HR [facility] Rx #:[id number] Blood Product 600 Output: Urine 700 Other: # Bowel Movements 1 Stool Characteristics Liquid Liquid Liquid Brown Brown Brown Active Medications: Current Medications Acetaminophen (Tylenol) 650 mg PO Q4HR PRN PRN Reason: Pain (Mild) Stop: 04/20/17 12:01 Last Admin: 03/06/17 03:23 Dose: 650 mg Albuterol/Ipratropium (Duoneb Neb) 3 ml HHN Q4HRT PRN PRN Reason: Wheezing Stop: 04/27/17 19:59 Last Admin: 02/28/17 03:18 Dose: 3 ml Albuterol/Ipratropium (Duoneb Neb) 3 ml HHN [id number] PATRIA Stop: 04/27/17 19:59 Last Admin: 03/11/17 07:33 Dose: 3 ml Chlorhexidine Gluconate (Peridex) 15 ml MM 0800,1999 [facility] Stop: 04/28/17 19:59 Last Admin: 03/11/17 08:35 Dose: 15 ml Diltiazem HCl (Cardizem) 5 mg IVP Q4H PRN PRN Reason: HR > 120 Stop: 04/27/17 19:59 Last Admin: 02/27/17 04:59 Dose: 5 mg Docusate Sodium (Colace) 100 mg PO BID [facility] Stop: 04/20/17 16:59 Last Admin: 03/11/17 08:33 Dose: Not Given Furosemide (Lasix) 40 mg IVP BID [facility] Stop: 05/08/17 08:59 Last Admin: 03/11/17 08:35 Dose: 40 mg Pantoprazole Sodium 80 mg/ (Sodium Chloride) 100 mls @ 10 mls/hr IV Q10H [facility] Stop: 04/20/17 08:59 Last Admin: 03/11/17 09:43 Dose: 10 mls/hr Phenylephrine HCl 10 mg/ (Sodium Chloride) 250 mls @ 0 mls/hr IV TITR PATRIA; Per Protocol PRN Reason: Protocol Stop: 04/28/17 07:59 Norepinephrine Bitartrate 8 mg (/ Sodium Chloride) 258 mls @ 0 mls/hr IV TITR PATRIA; Per Protocol PRN Reason: Protocol Stop: 04/28/17 09:59 Last Titration: 03/10/17 09:17 Dose: 0 mcg/min, 0 mls/hr Meropenem 1 gm/ Dextrose 100 mls @ 100 mls/hr IV Q12H [facility] Stop: 04/28/17 12:29 Last Admin: 03/11/17 12:01 Dose: 100 mls/hr Metronidazole (Flagyl) 500 mg in 100 mls @ 100 mls/hr IV Q8HR [facility] Stop: 05/04/17 20:59 Last Infusion: 03/11/17 07:26 Dose: Infused Insulin Aspart (Novolog Insulin Sliding Scale) 0 units SUBQ Q6H [facility] PRN Reason: Protocol Stop: 05/03/17 00:00 Last Admin: 03/11/17 12:01 Dose: Not Given Metoclopramide HCl (Reglan) 5 mg IVP Q6HR [facility] Stop: 05/05/17 17:59 Last Admin: 03/11/17 12:01 Dose: 5 mg Mirtazapine (Remeron) 15 mg PO HS [facility] PRN Reason: Protocol Stop: 04/26/17 20:59 Last Admin: 03/10/17 21:20 Dose: 15 mg Miscellaneous (Probiotic Screen) 1 ea MC PRN PRN PRN Reason: PROTOCOL Stop: 04/21/17 16:25 Morphine Sulfate (Morphine) 1 mg IVP Q4HR PRN PRN Reason: Severe Pain Stop: 05/04/17 14:13 Last Admin: 03/11/17 08:35 Dose: 1 mg Nitroglycerin (Nitrostat) 0.4 mg SL Q5MIN PRN PRN Reason: Chest Pain Stop: 04/20/17 12:01 Nystatin (Nystop) 100,000 units TP BID PRN PRN Reason: SKIN EXCORIATIONS Stop: 04/21/17 15:35 Last Admin: 03/08/17 06:00 Dose: 100,000 units Ondansetron HCl (Zofran) 4 mg IV Q6H PRN PRN Reason: Nausea Stop: 04/20/17 03:38 General: No acute distress HEENT: Atraumatic, EOMI Neck: Supple, JVD, +2 carotid pulse wo bruit Cardiovascular: Regular rate, Normal S1, Normal S2 Lungs: Other (coarse rhonchi) Abdomen: Bowel sounds, Soft Extremities: Edema, Other ((+3) bipedal edema) Neurological: Sensation intact Skin: no Rash Psych/Mental Status: Mood NL - Procedures Procedures: Procedures Procedure Code Date INSERT EMERGENCY AIRWAY 33613 02/19/17 INSERTION OF ENDOTRACHEAL AIRWAY INTO TRACHEA, VIA OPENING [id number] 02/19/17 RESPIRATORY VENTILATION, GREATER THAN 96 CONSECUTIVE HOURS [id number] 02/19/17 VENT MGMT INPAT INIT DAY 62069 02/19/17 VENT MGMT INPAT SUBQ DAY 27293 02/19/17 Assessment/Plan - Problem List Patient Problems: All Active Problems Acute kidney failure (Acute) 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 Azotemia (Acute) R79.89 Bradycardia (Acute) R00.1 COPD (chronic obstructive pulmonary disease) (Acute) Cardiomegaly (Acute) I51.7 Chest pain (Acute) R07.9 Decubitus ulcer of buttock, 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 - Assessment Assessment: SOHAIL on CKD Acute resp failure on vent 2nd CHF, HAP, possible SOFIE, Exacerbation COPD Shock Sepsis DJD Type 2 DM GERD SOFIE Hyponatremia S/p [place], Appe anasarca Thrombocytopenia Anemia of CD - Plan Plan: Lab - Result Diagrams 03/01/17 09:15 03/01/17 09:15 Current Medications Acetaminophen (Tylenol) 650 mg PO Q4HR PRN PRN Reason: Pain (Mild) Stop: 04/20/17 12:01 Last Admin: 02/21/17 09:54 Dose: 650 mg Acetaminophen/Hydrocodone Bitart (Carmi 5mg/325mg) 1 tab PO Q6H PRN PRN Reason: PAIN Stop: 04/20/17 13:24 Albuterol/Ipratropium (Duoneb Neb) 3 ml HHN Q4HRT PRN PRN Reason: Wheezing Stop: 04/27/17 19:59 Last Admin: 02/28/17 03:18 Dose: 3 ml Albuterol/Ipratropium (Duoneb Neb) 3 ml HHN [id number] [facility] Stop: 04/27/17 19:59 Last Admin: 03/01/17 13:49 Dose: 3 ml Aspirin (Ecotrin) 81 mg PO DAILY [facility] Stop: 04/21/17 08:59 Last Admin: 03/01/17 09:30 Dose: Not Given Chlorhexidine Gluconate (Peridex) 15 ml MM 0800,2000 [facility] Stop: 04/28/17 19:59 Last Admin: 03/01/17 08:30 Dose: 15 ml Diltiazem HCl (Cardizem) 5 mg IVP Q4H PRN PRN Reason: HR > 120 Stop: 04/27/17 19:59 Last Admin: 02/27/17 04:59 Dose: 5 mg Docusate Sodium (Colace) 100 mg PO BID [facility] Stop: 04/20/17 16:59 Last Admin: 03/01/17 09:31 Dose: Not Given Fluconazole (Diflucan) 100 mg PO DAILY [facility] Stop: 03/08/17 08:59 Last Admin: 03/01/17 09:31 Dose: Not Given Furosemide (Lasix) 40 mg PO DAILY [facility] Stop: 04/21/17 08:59 Last Admin: 03/01/17 09:31 Dose: Not Given Pantoprazole Sodium 80 mg/ (Sodium Chloride) 100 mls @ 10 mls/hr IV Q10H [facility] Stop: 04/20/17 08:59 Last Admin: 03/01/17 09:31 Dose: 10 mls/hr Linezolid (Zyvox) 600 mg in 300 mls @ 300 mls/hr IV Q12HR [facility] Stop: 04/22/17 20:59 Last Infusion: 03/01/17 10:00 Dose: Infused Levofloxacin (Levaquin Pb) 250 mg in 50 mls @ 50 mls/hr IV Q24HR [facility] Stop: 04/23/17 20:59 Last Infusion: 02/28/17 21:17 Dose: Infused Phenylephrine HCl 10 mg/ (Sodium Chloride) 250 mls @ 0 mls/hr IV TITR PATRIA; Per Protocol PRN Reason: Protocol Stop: 04/28/17 07:59 Norepinephrine Bitartrate 8 mg (/ Sodium Chloride) 258 mls @ 0 mls/hr IV TITR PATRIA; Per Protocol PRN Reason: Protocol Stop: 04/28/17 09:59 Last Titration: 03/01/17 06:31 Dose: 6 mcg/min, 11.61 mls/hr Meropenem 1 gm/ Dextrose 100 mls @ 100 mls/hr IV Q12H [facility] Stop: 04/28/17 12:29 Last Infusion: 03/01/17 13:00 Dose: Infused Potassium Chloride/Dextrose/Sod Cl (D5-0.9ns W/Kcl 20meq) 1,000 mls @ 75 mls/ hr IV .[id number] [facility] Stop: 04/30/17 14:41 Insulin Aspart (Novolog Insulin Sliding Scale) 0 units SUBQ ACHS [facility] PRN Reason: Protocol Stop: 04/20/17 16:29 Last Admin: 03/01/17 12:01 Dose: 4 units Mirtazapine (Remeron) 15 mg PO HS [facility] PRN Reason: Protocol Stop: 04/26/17 20:59 Last Admin: 02/28/17 21:23 Dose: 15 mg Miscellaneous (Probiotic Screen) 1 ea MC PRN PRN PRN Reason: PROTOCOL Stop: 04/21/17 16:25 Morphine Sulfate (Morphine) 1 mg IVP Q3H PRN PRN Reason: Pain (Moderate) Stop: 04/20/17 01:59 Last Admin: 03/01/17 09:28 Dose: 1 mg Nitroglycerin (Nitrostat) 0.4 mg SL Q5MIN PRN PRN Reason: Chest Pain Stop: 04/20/17 12:01 Nystatin (Nystop) 100,000 units TP BID PRN PRN Reason: SKIN EXCORIATIONS Stop: 04/21/17 15:35 Last Admin: 02/21/17 11:46 Dose: 100,000 units Ondansetron HCl (Zofran) 4 mg IV Q6H PRN PRN Reason: Nausea Stop: 04/20/17 03:38 Spironolactone (Aldactone) 50 mg PO BID [facility] Stop: 04/27/17 08:59 Last Admin: 03/01/17 09:29 Dose: Not Given Lab - Result Diagrams 03/11/17 08:15 03/11/17 08:15 Na up to 137 kidney fnc remain stable w/ BUN/Cr of 49/1.6 UOP improved to nam 2L CXR still w/ CHF, continue Lasix IVP, add metolazone DC spironolactone still on Levo 4 mcg f/u electorlytes, cbc, CXR DC ivf due to worsening anasarca, chf add albumin initiate [id number] Plts down to 26 etio ?sepsis, meds, DIC For transfusion of PRBC, FFP Nutritional Asmnt/Malnutr-PDOC - Dietary Evaluation Malnutrition Findings (Please click <Entered> for more info): Nutritional Asmnt/Malnutrition Start: 02/21/17 18: 20 Text: Status: Complete Freq: Document 02/21/17 18:21 OSKAR (Rec: 02/21/17 18:32 LCELLEN [id number]) Nutritional Asmnt/Malnutrition Patient General Information Nutritional Screening High Risk Consult Diagnosis gastric outlet obstruction Pertinent Medical Hx/Surgical Hx HTN, OA, DM, GERD Subjective Information Pt seen sleeping at the time of visit, attempted x 2. Spoke with RN, pt consumed 50% of breakfast and only the soup of lunch today, not much appetite, no complain of N/V. Pt will be NPO from midnight for GI exam tommorrow. Current Diet Order/ Nutrition Support no added salt 4gm, CCHO, no eggs, banana and cereal in morning Pertinent Medications colace, lasix, novolog, levaquin, piperacillin Pertinent Labs 02/20 Na 137, K 4.5, Cl 104, BUN 55, Cr 1.6, Glucose 137, POC 126-199 since admit, Ca 8. 3 Nutritional Hx/Data Height 1.57 m Height (Calculated Centimeters) 157.5 Current Weight (lbs) 97.023 kg Weight (Calculated Kilograms) 97.0 Weight (Calculated Grams) 25675.4 [place] Body Weight 110 % [place] Body Weight 194 Body Mass Index (BMI) 39.1 Weight Status Obese GI Symptoms GI Symptoms None Last BM none Difficult in: None Skin Integrity/Comment: multiple maceration, abrasion to right/left medial thigh Current %PO Poor (25-49%) Estimated Nutritional Goals BEE in Kcals: Adj wt of IBW Calories/Kcals/Kg 27-32 Kcals Calculated Protein: Adj wt of IBW Protein g/k-1.2 Protein Calculated 62-74 Fluid: ml Nutritional Problem 1. Problem Problem inadequate PO intake Etiology poor appetite Signs/Symptoms: PO intake 25-50% Malnutrition Alert Protein-Calorie Malnutrition N/A Is there a minimum of two criteria No selected? Query Text:Check all the applicable criteria. A minimum of two criteria are recommended for diagnosis of either severe or non-severe malnutrition. Intervention/Recommendation Comments 1. Continue with current diet as ordered. 2. Monitor PO intake, GI symptons, wt, labs and skin integrity 3. F/U as high risk in 2-3 days, 02/23-02/24 Expected Outcomes/Goals Expected Outcomes/Goals 1. PO intake to meet at least 75% of nutritional needs. 2. Wt stability, skin to remain intact, labs to improve
--- NOTE | 2017-03-11 14:32 | General Progress Note ---
Subjective - Review of Systems Service Date: 03/11/17 Objective - Results Result Diagrams: 03/11/17 08:15 03/11/17 08:15 Recent Labs: Laboratory Last Values WBC 10.9 Th/cmm (4.8-10.8) H 03/11/17 08:15 RBC 2.70 Mil/cmm (3.80-5.20) L 03/11/17 08:15 Hgb 7.8 gm/dL (12-16) L* 03/11/17 08:15 Hct 23.8 % (41.0-60) L 03/11/17 08:15 MCV 88.3 fl (81-100) 03/11/17 08:15 MCH 28.9 pg (27.0-31.0) 03/11/17 08:15 MCHC Differential 32.8 pg (28.0-36.0) 03/11/17 08:15 RDW 13.7 % (11.5-20.0) 03/11/17 08:15 Plt Count 22 Th/cmm (150-400) L* 03/11/17 08:15 MPV 8.5 fl 03/11/17 08:15 Neutrophils % 73.6 % (40.0-80.0) 03/11/17 08:15 Band Neutrophils % 5 % (0-10) 03/06/17 06:00 Lymphocytes % 12.6 % (20.0-50.0) L 03/11/17 08:15 Monocytes % 7.4 % (2.0-10.0) 03/11/17 08:15 Eosinophils % 6.4 % (0.0-5.0) H 03/11/17 08:15 Basophils % 0.0 % (0.0-2.0) 03/11/17 08:15 Neutrophils (Manual) 85 % (40-80) H 03/06/17 06:00 Lymphocytes 4 % (20-50) L 03/06/17 06:00 Monocytes 3 % (2-10) 03/06/17 06:00 Eosinophils 3 % (0-5) 03/06/17 06:00 Metamyelocytes 1 % (0-0) H 02/18/17 23:35 Hypochromia 1+ 02/18/17 23:35 Platelet Estimate DECREASED PLATELETS (NORMAL) 03/06/17 06:00 Platelet Morphology (NORMAL) 03/04/17 08:00 Plt Count 26 Th/cmm (150-750) L* 03/10/17 06:10 PT 13.5 SECONDS (9.5-11.5) H 03/10/17 06:10 INR 1.28 (0.5-1.4) 03/10/17 06:10 PTT (Actin FS) 39.3 SECONDS (26.0-38.0) H 03/11/17 08:15 Fibrinogen 243.0 mg/dL (200.0-400.0) 03/11/17 08:15 D-Dimer 1640 ng/mL (100-400) H 03/10/17 06:10 Specimen Source Arterial 03/11/17 09:40 Sample Site Right Radial 03/11/17 09:40 pH 7.29 (7.35-7.45) L 03/11/17 09:40 pCO2 44.0 mmHg (35.0-45.0) 03/11/17 09:40 pO2 66.0 mmHg (80.0-100.0) L 03/11/17 09:40 HCO3 20.6 mEq/L (20.0-26.0) 03/11/17 09:40 Base Excess -5.3 mEq/L (-3.0-3.0) L 03/11/17 09:40 O2 Saturation 90.0 % (92.0-100.0) L 03/11/17 09:40 Jorje Test YES 03/11/17 09:40 Vent Rate 4 03/11/17 09:40 Inspired O2 30 03/11/17 09:40 Tidal Volume 550 03/11/17 09:40 PEEP 5 03/11/17 09:40 Pressure (ins/psv/peep) 15 03/11/17 09:40 Critical Value E.HERNANDEZ 03/11/17 09:40 Sodium 137 mEq/L (136-145) 03/11/17 08:15 Potassium 3.7 mEq/L (3.5-5.1) 03/11/17 08:15 Chloride 110 mEq/L (98-107) H 03/11/17 08:15 Carbon Dioxide 18.7 mEq/L (21.0-31.0) L 03/11/17 08:15 Anion Gap 12.0 (7.0-16.0) 03/11/17 08:15 BUN 49 mg/dL (7-25) H 03/11/17 08:15 Creatinine 1.6 mg/dL (0.6-1.2) H 03/11/17 08:15 Est GFR ( Amer) 41.1 ml/min (>90) 03/11/17 08:15 Est GFR (Non-Af Amer) 34.0 ml/min 03/11/17 08:15 BUN/Creatinine Ratio 30.6 03/11/17 08:15 Glucose 145 mg/dL (70-105) H 03/11/17 08:15 POC Glucose 147 MG/DL (70 - 105) H 03/11/17 04:32 Hemoglobin A1c % 5.8 % (4.0-6.0) 02/22/17 10:38 Whole Bld Lactic Acid 2.40 mmol/L (0.60-1.99) H* 02/27/17 15:04 Calcium 8.0 mg/dL (8.6-10.3) L 03/11/17 08:15 Phosphorus 2.5 mg/dL (2.5-5.0) 03/01/17 09:15 Magnesium 2.1 mg/dL (1.9-2.7) 03/01/17 09:15 Total Bilirubin 0.5 mg/dL (0.3-1.0) 03/11/17 08:15 Direct Bilirubin 0.09 mg/dL (0.0-0.2) 02/18/17 23:35 AST 19 U/L (13-39) 03/11/17 08:15 ALT 5 U/L (7-52) L 03/11/17 08:15 Alkaline Phosphatase 69 U/L (34-104) 03/11/17 08:15 Ammonia 38 umol/L (16-53) 03/01/17 17:28 B-Natriuretic Peptide 158.0 pg/mL (5.0-100.0) H 03/04/17 15:39 Total Protein 5.2 gm/dL (6.0-8.3) L 03/11/17 08:15 Albumin 2.9 gm/dL (3.7-5.3) L 03/11/17 08:15 Globulin 2.3 gm/dL 03/11/17 08:15 Albumin/Globulin Ratio 1.3 (1.0-1.8) 03/11/17 08:15 Amylase 36 U/L (29-103) 02/18/17 23:35 Lipase 10 U/L (11-82) L 02/18/17 23:35 Vitamin B12 860 pg/mL (232-1245) 02/26/17 04:45 Free T4 1.04 ng/dL (0.82-1.77) 02/25/17 04:50 Free T3 0.7 pg/mL (2.0-4.4) L 02/25/17 04:50 TSH 0.84 uIU/ml (0.34-5.60) 02/25/17 04:50 Total Cortisol 12.3 02/24/17 07:50 Urine Source [place] 02/27/17 15:00 Urine Color YELLOW 02/27/17 15:00 Urine Clarity CLOUDY (CLEAR) H 02/27/17 15:00 Urine pH 5.5 (4.6 - 8.0) 02/27/17 15:00 Ur Specific [place] <= 1.005 (1.005-1.030) 02/27/17 15:00 Urine Protein TRACE mg/dL (NEGATIVE) 02/27/17 15:00 Urine Glucose (UA) NEGATIVE mg/dL (NEGATIVE) 02/27/17 15:00 Urine Ketones NEGATIVE mg/dL (NEGATIVE) 02/27/17 15:00 Urine Blood LARGE (NEGATIVE) H 02/27/17 15:00 Urine Nitrate NEGATIVE (NEGATIVE) 02/27/17 15:00 Urine Bilirubin NEGATIVE (NEGATIVE) 02/27/17 15:00 Urine Urobilinogen 0.2 E.U./dL (0.2 - 1.0) 02/27/17 15:00 Ur Leukocyte Esterase LARGE (NEGATIVE) H 02/27/17 15:00 Urine RBC 10-25 /hpf (0-5) H 02/27/17 15:00 Urine WBC >100 /hpf (0-5) H 02/27/17 15:00 Ur Epithelial Cells MODERATE /lpf (FEW) 02/27/17 15:00 Urine Bacteria MODERATE /hpf (NONE SEEN) H 02/27/17 15:00 Urine Yeast MODERATE /hpf (NONE SEEN) H 02/20/17 16:15 Blood Type A POSITIVE 03/10/17 11:00 Antibody Screen NEGATIVE 03/10/17 11:00 Crossmatch See Detail 03/10/17 11:00 - Physical Exam Vitals and I&O: Vital Signs Temp 97.3 F 03/11/17 10:00 Pulse 71 03/11/17 13:24 Resp 14 03/11/17 12:00 BP 116/94 03/11/17 12:00 Pulse Ox 100 03/11/17 13:24 Intake & Output 03/10/17 03/11/17 03/11/17 18:59 06:59 18:59 Intake Total 292.706 800 200.167 Output Total 700 Balance 292.706 100 200.167 Weight (lbs) 122.924 kg Intake: Intake, IV Amount 292.706 200 200.167 Meropenem 1 gm In 100 100 Dextrose 5% 100 ml @ 100 mls/hr IV Q12H [facility] Rx#: [id number] Norepinephrine 8 mg In 12.706 Sodium Chloride 0.9% 250 ml @ Per Protocol IV TITR [facility] Rx#:[id number] Pantoprazole 80 mg In 80 100 0.167 Sodium Chloride 0.9% 100 ml @ 10 mls/hr IV Q10H [facility] Rx#:[id number] metroNIDAZOLE 500mg/NS 100 100 100 100mL 500 mg In 100 ml @ 100 mls/hr IV Q8HR [facility] Rx #:[id number] Blood Product 600 Output: Urine 700 Other: # Bowel Movements 1 Stool Characteristics Liquid Liquid Liquid Brown Brown Brown Active Medications: Current Medications Acetaminophen (Tylenol) 650 mg PO Q4HR PRN PRN Reason: Pain (Mild) Stop: 04/20/17 12:01 Last Admin: 03/06/17 03:23 Dose: 650 mg Albuterol/Ipratropium (Duoneb Neb) 3 ml HHN Q4HRT PRN PRN Reason: Wheezing Stop: 04/27/17 19:59 Last Admin: 02/28/17 03:18 Dose: 3 ml Albuterol/Ipratropium (Duoneb Neb) 3 ml HHN [id number] [facility] Stop: 04/27/17 19:59 Last Admin: 03/11/17 13:24 Dose: 3 ml Chlorhexidine Gluconate (Peridex) 15 ml MM 0800,1999 [facility] Stop: 04/28/17 19:59 Last Admin: 03/11/17 08:35 Dose: 15 ml Diltiazem HCl (Cardizem) 5 mg IVP Q4H PRN PRN Reason: HR > 120 Stop: 04/27/17 19:59 Last Admin: 02/27/17 04:59 Dose: 5 mg Docusate Sodium (Colace) 100 mg PO BID [facility] Stop: 04/20/17 16:59 Last Admin: 03/11/17 08:33 Dose: Not Given Furosemide (Lasix) 40 mg IVP BID [facility] Stop: 05/08/17 08:59 Last Admin: 03/11/17 08:35 Dose: 40 mg Pantoprazole Sodium 80 mg/ (Sodium Chloride) 100 mls @ 10 mls/hr IV Q10H [facility] Stop: 04/20/17 08:59 Last Admin: 03/11/17 09:43 Dose: 10 mls/hr Phenylephrine HCl 10 mg/ (Sodium Chloride) 250 mls @ 0 mls/hr IV TITR [facility]; Per Protocol PRN Reason: Protocol Stop: 04/28/17 07:59 Norepinephrine Bitartrate 8 mg (/ Sodium Chloride) 258 mls @ 0 mls/hr IV TITR [facility]; Per Protocol PRN Reason: Protocol Stop: 04/28/17 09:59 Last Titration: 03/10/17 09:17 Dose: 0 mcg/min, 0 mls/hr Meropenem 1 gm/ Dextrose 100 mls @ 100 mls/hr IV Q12H [facility] Stop: 04/28/17 12:29 Last Admin: 03/11/17 12:01 Dose: 100 mls/hr Metronidazole (Flagyl) 500 mg in 100 mls @ 100 mls/hr IV Q8HR [facility] Stop: 05/04/17 20:59 Last Infusion: 03/11/17 07:26 Dose: Infused Insulin Aspart (Novolog Insulin Sliding Scale) 0 units SUBQ Q6H [facility] PRN Reason: Protocol Stop: 05/03/17 00:00 Last Admin: 03/11/17 12:01 Dose: Not Given Metoclopramide HCl (Reglan) 5 mg IVP Q6HR [facility] Stop: 05/05/17 17:59 Last Admin: 03/11/17 12:01 Dose: 5 mg Metolazone (Zaroxolyn) 5 mg PO DAILY [facility] Stop: 05/10/17 13:14 Mirtazapine (Remeron) 15 mg PO HS [facility] PRN Reason: Protocol Stop: 04/26/17 20:59 Last Admin: 03/10/17 21:20 Dose: 15 mg Miscellaneous (Probiotic Screen) 1 ea PRN PRN PRN Reason: PROTOCOL Stop: 04/21/17 16:25 Miscellaneous (Communication Order) 1 ea MC PRN [facility] Stop: 05/10/17 13:14 Morphine Sulfate (Morphine) 1 mg IVP Q4HR PRN PRN Reason: Severe Pain Stop: 05/04/17 14:13 Last Admin: 03/11/17 08:35 Dose: 1 mg Nitroglycerin (Nitrostat) 0.4 mg SL Q5MIN PRN PRN Reason: Chest Pain Stop: 04/20/17 12:01 Nystatin (Nystop) 100,000 units TP BID PRN PRN Reason: SKIN EXCORIATIONS Stop: 04/21/17 15:35 Last Admin: 03/08/17 06:00 Dose: 100,000 units Ondansetron HCl (Zofran) 4 mg IV Q6H PRN PRN Reason: Nausea Stop: 04/20/17 03:38 General: No acute distress HEENT: Atraumatic, EOMI Neck: Supple, JVD, +2 carotid pulse wo bruit Cardiovascular: Regular rate, Normal S1, Normal S2 Lungs: Other (coarse rhonchi) Abdomen: Bowel sounds, Soft Extremities: Edema, Other ((+3) bipedal edema) Neurological: Sensation intact Skin: no Rash Psych/Mental Status: Mood NL - Procedures Procedures: Procedures Procedure Code Date INSERT EMERGENCY AIRWAY 92769 02/19/17 INSERTION OF ENDOTRACHEAL AIRWAY INTO [place], VIA OPENING [id number] 02/19/17 RESPIRATORY VENTILATION, GREATER THAN 96 CONSECUTIVE HOURS [id number] 02/19/17 VENT MGMT INPAT INIT DAY 02/19/17 VENT MGMT INPAT SUBQ DAY 02/19/17 Assessment/Plan - Problem List Patient Problems: All Active Problems Acute kidney failure (Acute) 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 Azotemia (Acute) R79.89 Bradycardia (Acute) R00.1 COPD (chronic obstructive pulmonary disease) (Acute) Cardiomegaly (Acute) I51.7 Chest pain (Acute) R07.9 Decubitus ulcer of buttock, 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 - Assessment Assessment: * SEPTIC SHOCK * DIC * RESPIRATORY FAILURE * RENAL FAILURE TRANSFUSE PLT FOLLOW DIC PARAMETERS Nutritional Asmnt/Malnutr-PDOC - Dietary Evaluation Malnutrition Findings (Please click <Entered> for more info): Nutritional Asmnt/Malnutrition Start: 02/21/17 18: 20 Text: Status: Complete Freq: Document 02/21/17 18:21 [facility] (Rec: 02/21/17 18:32 [id number]) Nutritional Asmnt/Malnutrition Patient General Information Nutritional Screening High Risk Consult Diagnosis gastric outlet obstruction Pertinent Medical Hx/Surgical Hx HTN, OA, DM, GERD Subjective Information Pt seen sleeping at the time of visit, attempted x 2. Spoke with RN, pt consumed 50% of breakfast and only the soup of lunch today, not much appetite, no complain of N/V. Pt will be NPO from midnight for GI exam tommorrow. Current Diet Order/ Nutrition Support no added salt 4gm, CCHO, no eggs, banana and cereal in morning Pertinent Medications colace, lasix, novolog, levaquin, piperacillin Pertinent Labs 02/20 Na 137, K 4.5, Cl 104, BUN 55, Cr 1.6, Glucose 137, POC 126-199 since admit, Ca 8. 3 Nutritional Hx/Data Height 1.57 m Height (Calculated Centimeters) 157.5 Current Weight (lbs) 97.023 kg Weight (Calculated Kilograms) 97.0 Weight (Calculated Grams) 28664.4 [place] Body Weight 110 % [place] Body Weight 194 Body Mass Index (BMI) 39.1 Weight Status Obese GI Symptoms GI Symptoms None Last BM none Difficult in: None Skin Integrity/Comment: multiple maceration, abrasion to right/left medial thigh Current %PO Poor (25-49%) Estimated Nutritional Goals BEE in Kcals: Adj wt of IBW Calories/Kcals/Kg 27-32 Kcals Calculated Protein: Adj wt of IBW Protein g/k-1.2 Protein Calculated 62-74 Fluid: ml Nutritional Problem 1. Problem Problem inadequate PO intake Etiology poor appetite Signs/Symptoms: PO intake 25-50% Malnutrition Alert Protein-Calorie Malnutrition N/A Is there a minimum of two criteria No selected? Query Text:Check all the applicable criteria. A minimum of two criteria are recommended for diagnosis of either severe or non-severe malnutrition. Intervention/Recommendation Comments 1. Continue with current diet as ordered. 2. Monitor PO intake, GI symptons, wt, labs and skin integrity 3. F/U as high risk in 2-3 days, 02/23-02/24 Expected Outcomes/Goals Expected Outcomes/Goals 1. PO intake to meet at least 75% of nutritional needs. 2. Wt stability, skin to remain intact, labs to improve
[2017-03-11] MEDS: Metolazone 5 MG TAB PO SCH (15:16)
--- NOTE | 2017-03-11 20:46 | Internal Medicine Prog Note ---
Internal Medicine Subjective - Subjective Service Date: 03/11/17 (patient did not tolerate weaning) Patient seen and examined:: with staff Patient is:: awake Per staff patient has:: tolerating meds Internal Medicine Objective - Results Result Diagrams: 03/11/17 08:15 03/11/17 08:15 Recent Labs: Laboratory Last Values WBC 10.9 Th/cmm (4.8-10.8) H 03/11/17 08:15 RBC 2.70 Mil/cmm (3.80-5.20) L 03/11/17 08:15 Hgb 7.8 gm/dL (12-16) L* 03/11/17 08:15 Hct 23.8 % (41.0-60) L 03/11/17 08:15 MCV 88.3 fl (81-100) 03/11/17 08:15 MCH 28.9 pg (27.0-31.0) 03/11/17 08:15 MCHC Differential 32.8 pg (28.0-36.0) 03/11/17 08:15 RDW 13.7 % (11.5-20.0) 03/11/17 08:15 Plt Count 22 Th/cmm (150-400) L* 03/11/17 08:15 MPV 8.5 fl 03/11/17 08:15 Neutrophils % 73.6 % (40.0-80.0) 03/11/17 08:15 Band Neutrophils % 5 % (0-10) 03/06/17 06:00 Lymphocytes % 12.6 % (20.0-50.0) L 03/11/17 08:15 Monocytes % 7.4 % (2.0-10.0) 03/11/17 08:15 Eosinophils % 6.4 % (0.0-5.0) H 03/11/17 08:15 Basophils % 0.0 % (0.0-2.0) 03/11/17 08:15 Neutrophils (Manual) 85 % (40-80) H 03/06/17 06:00 Lymphocytes 4 % (20-50) L 03/06/17 06:00 Monocytes 3 % (2-10) 03/06/17 06:00 Eosinophils 3 % (0-5) 03/06/17 06:00 Metamyelocytes 1 % (0-0) H 02/18/17 23:35 Hypochromia 1+ 02/18/17 23:35 Platelet Estimate DECREASED PLATELETS (NORMAL) 03/06/17 06:00 Platelet Morphology (NORMAL) 03/04/17 08:00 Plt Count 26 Th/cmm (150-750) L* 03/10/17 06:10 PT 13.5 SECONDS (9.5-11.5) H 03/10/17 06:10 INR 1.28 (0.5-1.4) 03/10/17 06:10 PTT (Actin FS) 39.3 SECONDS (26.0-38.0) H 03/11/17 08:15 Fibrinogen 243.0 mg/dL (200.0-400.0) 03/11/17 08:15 D-Dimer 1640 ng/mL (100-400) H 03/10/17 06:10 Specimen Source Arterial 03/11/17 09:40 Sample Site Right Radial 03/11/17 09:40 pH 7.29 (7.35-7.45) L 03/11/17 09:40 pCO2 44.0 mmHg (35.0-45.0) 03/11/17 09:40 pO2 66.0 mmHg (80.0-100.0) L 03/11/17 09:40 HCO3 20.6 mEq/L (20.0-26.0) 03/11/17 09:40 Base Excess -5.3 mEq/L (-3.0-3.0) L 03/11/17 09:40 O2 Saturation 90.0 % (92.0-100.0) L 03/11/17 09:40 Jorje Test YES 03/11/17 09:40 Vent Rate 4 03/11/17 09:40 Inspired O2 30 03/11/17 09:40 Tidal Volume 550 03/11/17 09:40 PEEP 5 03/11/17 09:40 Pressure (ins/psv/peep) 15 03/11/17 09:40 Critical Value E.HERNANDEZ 03/11/17 09:40 Sodium 137 mEq/L (136-145) 03/11/17 08:15 Potassium 3.7 mEq/L (3.5-5.1) 03/11/17 08:15 Chloride 110 mEq/L (98-107) H 03/11/17 08:15 Carbon Dioxide 18.7 mEq/L (21.0-31.0) L 03/11/17 08:15 Anion Gap 12.0 (7.0-16.0) 03/11/17 08:15 BUN 49 mg/dL (7-25) H 03/11/17 08:15 Creatinine 1.6 mg/dL (0.6-1.2) H 03/11/17 08:15 Est GFR ( Amer) 41.1 ml/min (>90) 03/11/17 08:15 Est GFR (Non-Af Amer) 34.0 ml/min 03/11/17 08:15 BUN/Creatinine Ratio 30.6 03/11/17 08:15 Glucose 145 mg/dL (70-105) H 03/11/17 08:15 POC Glucose 147 MG/DL (70 - 105) H 03/11/17 04:32 Hemoglobin A1c % 5.8 % (4.0-6.0) 02/22/17 10:38 Whole Bld Lactic Acid 2.40 mmol/L (0.60-1.99) H* 02/27/17 15:04 Calcium 8.0 mg/dL (8.6-10.3) L 03/11/17 08:15 Phosphorus 2.5 mg/dL (2.5-5.0) 03/01/17 09:15 Magnesium 2.1 mg/dL (1.9-2.7) 03/01/17 09:15 Total Bilirubin 0.5 mg/dL (0.3-1.0) 03/11/17 08:15 Direct Bilirubin 0.09 mg/dL (0.0-0.2) 02/18/17 23:35 AST 19 U/L (13-39) 03/11/17 08:15 ALT 5 U/L (7-52) L 03/11/17 08:15 Alkaline Phosphatase 69 U/L (34-104) 03/11/17 08:15 Ammonia 38 umol/L (16-53) 03/01/17 17:28 B-Natriuretic Peptide 158.0 pg/mL (5.0-100.0) H 03/04/17 15:39 Total Protein 5.2 gm/dL (6.0-8.3) L 03/11/17 08:15 Albumin 2.9 gm/dL (3.7-5.3) L 03/11/17 08:15 Globulin 2.3 gm/dL 03/11/17 08:15 Albumin/Globulin Ratio 1.3 (1.0-1.8) 03/11/17 08:15 Amylase 36 U/L (29-103) 02/18/17 23:35 Lipase 10 U/L (11-82) L 02/18/17 23:35 Vitamin B12 860 pg/mL (232-1245) 02/26/17 04:45 Free T4 1.04 ng/dL (0.82-1.77) 02/25/17 04:50 Free T3 0.7 pg/mL (2.0-4.4) L 02/25/17 04:50 TSH 0.84 uIU/ml (0.34-5.60) 02/25/17 04:50 Total Cortisol 12.3 02/24/17 07:50 Urine Source [place] 02/27/17 15:00 Urine Color YELLOW 02/27/17 15:00 Urine Clarity CLOUDY (CLEAR) H 02/27/17 15:00 Urine pH 5.5 (4.6 - 8.0) 02/27/17 15:00 Ur Specific [place] <= 1.005 (1.005-1.030) 02/27/17 15:00 Urine Protein TRACE mg/dL (NEGATIVE) 02/27/17 15:00 Urine Glucose (UA) NEGATIVE mg/dL (NEGATIVE) 02/27/17 15:00 Urine Ketones NEGATIVE mg/dL (NEGATIVE) 02/27/17 15:00 Urine Blood LARGE (NEGATIVE) H 02/27/17 15:00 Urine Nitrate NEGATIVE (NEGATIVE) 02/27/17 15:00 Urine Bilirubin NEGATIVE (NEGATIVE) 02/27/17 15:00 Urine Urobilinogen 0.2 E.U./dL (0.2 - 1.0) 02/27/17 15:00 Ur Leukocyte Esterase LARGE (NEGATIVE) H 02/27/17 15:00 Urine RBC 10-25 /hpf (0-5) H 02/27/17 15:00 Urine WBC >100 /hpf (0-5) H 02/27/17 15:00 Ur Epithelial Cells MODERATE /lpf (FEW) 02/27/17 15:00 Urine Bacteria MODERATE /hpf (NONE SEEN) H 02/27/17 15:00 Urine Yeast MODERATE /hpf (NONE SEEN) H 02/20/17 16:15 Stool Occult Blood NEGATIVE (NEGATIVE) 03/11/17 17:25 Blood Type A POSITIVE 03/10/17 11:00 Antibody Screen NEGATIVE 03/10/17 11:00 Crossmatch See Detail 03/10/17 11:00 - Physical Exam Vitals and I&O: Vital Signs Temp 97.3 F 03/11/17 18:00 Pulse 76 03/11/17 18:34 Resp 13 03/11/17 18:00 BP 117/54 03/11/17 18:00 Pulse Ox 100 03/11/17 20:00 Intake & Output 03/11/17 03/11/17 03/12/17 06:59 18:59 06:59 Intake Total 800 450.167 100 Output Total 700 220 Balance 100 230.167 100 Weight (lbs) 271 lb 271 lb Intake: Intake, IV Amount 200 400.167 100 Meropenem 1 gm In 200 Dextrose 5% 100 ml @ 100 mls/hr IV Q12H [facility] Rx#: [id number] Pantoprazole 80 mg In 100 0.167 100 Sodium Chloride 0.9% 100 ml @ 10 mls/hr IV Q10H [facility] Rx#:[id number] metroNIDAZOLE 500mg/NS 100 200 100mL 500 mg In 100 ml @ 100 mls/hr IV Q8HR [facility] Rx #:[id number] Blood Product 600 Other 50 Output: Urine 700 220 Other: # Bowel Movements 1 2 Stool Characteristics Liquid Liquid Brown Brown Active Medications: Current Medications Acetaminophen (Tylenol) 650 mg PO Q4HR PRN PRN Reason: Pain (Mild) Stop: 04/20/17 12:01 Last Admin: 03/06/17 03:23 Dose: 650 mg Albuterol/Ipratropium (Duoneb Neb) 3 ml HHN Q4HRT PRN PRN Reason: Wheezing Stop: 04/27/17 19:59 Last Admin: 02/28/17 03:18 Dose: 3 ml Albuterol/Ipratropium (Duoneb Neb) 3 ml HHN [id number] PATRIA Stop: 04/27/17 19:59 Last Admin: 03/11/17 18:33 Dose: 3 ml Chlorhexidine Gluconate (Peridex) 15 ml MM 0800,1999 [facility] Stop: 04/28/17 19:59 Last Admin: 03/11/17 20:00 Dose: 15 ml Diltiazem HCl (Cardizem) 5 mg IVP Q4H PRN PRN Reason: HR > 120 Stop: 04/27/17 19:59 Last Admin: 02/27/17 04:59 Dose: 5 mg Docusate Sodium (Colace) 100 mg PO BID [facility] Stop: 04/20/17 16:59 Last Admin: 03/11/17 16:18 Dose: Not Given Furosemide (Lasix) 40 mg IVP BID [facility] Stop: 05/08/17 08:59 Last Admin: 03/11/17 17:51 Dose: 40 mg Pantoprazole Sodium 80 mg/ (Sodium Chloride) 100 mls @ 10 mls/hr IV Q10H [facility] Stop: 04/20/17 08:59 Last Admin: 03/11/17 19:45 Dose: 10 mls/hr Phenylephrine HCl 10 mg/ (Sodium Chloride) 250 mls @ 0 mls/hr IV TITR PATRIA; Per Protocol PRN Reason: Protocol Stop: 04/28/17 07:59 Norepinephrine Bitartrate 8 mg (/ Sodium Chloride) 258 mls @ 0 mls/hr IV TITR PATRIA; Per Protocol PRN Reason: Protocol Stop: 04/28/17 09:59 Last Titration: 03/10/17 09:17 Dose: 0 mcg/min, 0 mls/hr Meropenem 1 gm/ Dextrose 100 mls @ 100 mls/hr IV Q12H [facility] Stop: 04/28/17 12:29 Last Infusion: 03/11/17 13:05 Dose: Infused Metronidazole (Flagyl) 500 mg in 100 mls @ 100 mls/hr IV Q8HR [facility] Stop: 05/04/17 20:59 Last Admin: 03/11/17 20:30 Dose: 100 mls/hr Insulin Aspart (Novolog Insulin Sliding Scale) 0 units SUBQ Q6H [facility] PRN Reason: Protocol Stop: 05/03/17 00:00 Last Admin: 03/11/17 17:51 Dose: Not Given Metoclopramide HCl (Reglan) 5 mg IVP Q6HR [facility] Stop: 05/05/17 17:59 Last Admin: 03/11/17 17:51 Dose: 5 mg Metolazone (Zaroxolyn) 5 mg PO DAILY PATRIA Stop: 05/10/17 13:14 Last Admin: 03/11/17 15:16 Dose: 5 mg Mirtazapine (Remeron) 15 mg PO HS PATRIA PRN Reason: Protocol Stop: 04/26/17 20:59 Last Admin: 03/11/17 20:33 Dose: 15 mg Miscellaneous (Probiotic Screen) 1 ea PRN PRN PRN Reason: PROTOCOL Stop: 04/21/17 16:25 Miscellaneous (Communication Order) 1 ea MC PRN PATRIA Stop: 05/10/17 13:14 Morphine Sulfate (Morphine) 1 mg IVP Q4HR PRN PRN Reason: Severe Pain Stop: 05/04/17 14:13 Last Admin: 03/11/17 08:35 Dose: 1 mg Nitroglycerin (Nitrostat) 0.4 mg SL Q5MIN PRN PRN Reason: Chest Pain Stop: 04/20/17 12:01 Nystatin (Nystop) 100,000 units TP BID PRN PRN Reason: SKIN EXCORIATIONS Stop: 04/21/17 15:35 Last Admin: 03/08/17 06:00 Dose: 100,000 units Ondansetron HCl (Zofran) 4 mg IV Q6H PRN PRN Reason: Nausea Stop: 04/20/17 03:38 General: weak, alert HEENT: NC/AT, PERRLA Neck: Supple Lungs: ronchi Abdomen: soft, non-tender, non-distended Extremities: excoriation Neurological: no change - Procedures Procedures: Procedures Procedure Code Date INSERT EMERGENCY AIRWAY 19140 02/19/17 INSERTION OF ENDOTRACHEAL AIRWAY INTO [place], VIA OPENING [id number] 02/19/17 RESPIRATORY VENTILATION, GREATER THAN 96 CONSECUTIVE HOURS [id number] 02/19/17 VENT MGMT INPAT INIT DAY 02/19/17 VENT MGMT INPAT SUBQ DAY 94805 02/19/17 Internal Medicine Assmt/Plan - Assessment Assessment: Acute kidney failure (Acute) 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 Azotemia (Acute) R79.89 Bradycardia (Acute) R00.1 COPD (chronic obstructive pulmonary disease) (Acute) Cardiomegaly (Acute) I51.7 Chest pain (Acute) R07.9 Decubitus ulcer of buttock, 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 Acute respiratory failure - Plan Plan: may need trach placement continue vent support monitor glucose continue ivabx as per id follow up labs in am continue current orders Nutritional Asmnt/Malnutr-PDOC - Dietary Evaluation Malnutrition Findings (Please click <Entered> for more info): Nutritional Asmnt/Malnutrition Start: 02/21/17 18: 20 Text: Status: Complete Freq: Document 02/21/17 18:21 [email or web address] (Rec: 02/21/17 18:32 [email or web address] [id number]) Nutritional Asmnt/Malnutrition Patient General Information Nutritional Screening High Risk Consult Diagnosis gastric outlet obstruction Pertinent Medical Hx/Surgical Hx HTN, OA, DM, GERD Subjective Information Pt seen sleeping at the time of visit, attempted x 2. Spoke with RN, pt consumed 50% of breakfast and only the soup of lunch today, not much appetite, no complain of N/V. Pt will be NPO from midnight for GI exam tommorrow. Current Diet Order/ Nutrition Support no added salt 4gm, CCHO, no eggs, banana and cereal in morning Pertinent Medications colace, lasix, novolog, levaquin, piperacillin Pertinent Labs 02/20 Na 137, K 4.5, Cl 104, BUN 55, Cr 1.6, Glucose 137, POC 126-199 since admit, Ca 8. 3 Nutritional Hx/Data Height 5 ft 2 in Height (Calculated Centimeters) 157.5 Current Weight (lbs) 213 lb 14.4 oz Weight (Calculated Kilograms) 97.0 Weight (Calculated Grams) 43408.4 [place] Body Weight 110 % [place] Body Weight 194 Body Mass Index (BMI) 39.1 Weight Status Obese GI Symptoms GI Symptoms None Last BM none Difficult in: None Skin Integrity/Comment: multiple maceration, abrasion to right/left medial thigh Current %PO Poor (25-49%) Estimated Nutritional Goals BEE in Kcals: Adj wt of IBW Calories/Kcals/Kg 27-32 Kcals Calculated Protein: Adj wt of IBW Protein g/k-1.2 Protein Calculated 62-74 Fluid: ml Nutritional Problem 1. Problem Problem inadequate PO intake Etiology poor appetite Signs/Symptoms: PO intake 25-50% Malnutrition Alert Protein-Calorie Malnutrition N/A Is there a minimum of two criteria No selected? Query Text:Check all the applicable criteria. A minimum of two criteria are recommended for diagnosis of either severe or non-severe malnutrition. Intervention/Recommendation Comments 1. Continue with current diet as ordered. 2. Monitor PO intake, GI symptons, wt, labs and skin integrity 3. F/U as high risk in 2-3 days, 02/23-02/24 Expected Outcomes/Goals Expected Outcomes/Goals 1. PO intake to meet at least 75% of nutritional needs. 2. Wt stability, skin to remain intact, labs to improve
[2017-03-12] MEDS: Metoclopramide 5 mg/mL 2mL Vial IVP SCH ×4 (00:11→17:32)
[2017-03-12] MEDS: metroNIDAZOLE 500mg/NS 100mL 500 MG/100 ML BAG IV SCH ×2 (04:58→12:10)
[2017-03-12] MEDS: Pantoprazole 80 MG in Sodium Chloride 0.9% 100 ML IV SCH ×2 (05:50→17:40)
[2017-03-12] MEDS: INSULIN ASPART SLIDING SCALE 100 UNITS/ML UNIT SUBQ SCH ×4 (06:01→17:41)
[2017-03-12 07:48] LABS: INR 1.34 (0.5-1.4); PROTHROMBIN TIME (TEST) 14.1 SECONDS (9.5-11.5)
[2017-03-12 07:52] LABS: EOSINOPHILE ABSOLUTE 0.6 Th/cmm (0.1-0.4); HEMATOCRIT 23.1 % (41.0-60); LYMPHOCYTE ABSOLUTE 1.1 Th/cmm (1.5-3.0)
[2017-03-12] MEDS: Albuterol/Ipratropium Neb 3 ML AERS HHN SCH ×3 (08:12→19:03)
[2017-03-12] MEDS: Chlorhexidine Gluconate 0.12% 15mL Mouthwash MM SCH ×2 (08:15→20:38)
[2017-03-12 08:29] LABS: % NEUTROPHILS 75.8 % (40.0-80.0); MEAN CELL VOLUME 87.7 fl (81-100); MEAN CORPUSCULAR HGB CONC 34.2 pg (28.0-36.0); MEAN PLATELET VOLUME 9.2 fl; RED BLOOD COUNT 2.63 Mil/cmm (3.80-5.20); RED CELL DISTRIBUTION WIDTH 14.4 % (11.5-20.0); WHITE BLOOD COUNT 9.4 Th/cmm (4.8-10.8)
[2017-03-12 08:30] LABS: % EOSINOPHILS 5.9 % (0.0-5.0); % LYMPHOCYTES 11.8 % (20.0-50.0); % MONOCYTES 6.5 % (2.0-10.0); MONOCYTE ABSOLUTE 0.6 Th/cmm (0.3-1.0); NEUTROPHILE ABSOLUTE 7.1 Th/cmm (1.8-8.0)
[2017-03-12 08:31] LABS: PLATELET COUNT 73 Th/cmm (150-400)
[2017-03-12 08:32] LABS: HEMOGLOBIN 7.9 gm/dL (12-16)
[2017-03-12] MEDS: Metolazone 5 MG TAB PO SCH (09:12)
[2017-03-12] MEDS: Multivitamin w/ Minerals Tab PO SCH (09:12)
[2017-03-12] MEDS: Morphine Sulfate 2 mg/mL 1mL Syr IVP PRN (09:45)
--- NOTE | 2017-03-12 09:47 | Diagnostic Imaging Report ---
Portable chest x-ray (2 views) HISTORY: Vascular catheter placement, question foreign body (retained catheter segment) The initial radiograph labeled "PICC line PLC" demonstrates an approximate 3.0 cm thin linear density adjacent to the lateral margin of a base maker electrode pack. A catheter segment cannot be excluded. The heart is enlarged. Pulmonary vascular redistribution and hazy bilateral infiltrates noted. Changes are consistent with congestive heart failure. An endotracheal tube tip is approximately 3.0 cm above the abhishek. Nasogastric tube extends into the stomach. A subsequent second radiograph labeled "R/O foreign body", does not demonstrate the previously noted linear density. Changes consistent with congestive heart failure again noted. IMPRESSION: 1. The initial radiographic image demonstrates a thin linear density that may be related to a segment of a vascular catheter. However, this is not visualized on a subsequent radiograph as noted above. 2. Cardiomegaly with changes consistent with congestive heart failure.
--- NOTE | 2017-03-12 10:00 | General Progress Note ---
Subjective - Review of Systems Service Date: 03/12/17 Events since last encounter: trach when platelets improved Objective - Results Result Diagrams: 03/12/17 07:00 03/11/17 08:15 Recent Labs: Laboratory Last Values WBC 9.4 Th/cmm (4.8-10.8) 03/12/17 07:00 RBC 2.63 Mil/cmm (3.80-5.20) L 03/12/17 07:00 Hgb 7.9 gm/dL (12-16) L* 03/12/17 07:00 Hct 23.1 % (41.0-60) L 03/12/17 07:00 MCV 87.7 fl (81-100) 03/12/17 07:00 MCH 30.0 pg (27.0-31.0) 03/12/17 07:00 MCHC Differential 34.2 pg (28.0-36.0) 03/12/17 07:00 RDW 14.4 % (11.5-20.0) 03/12/17 07:00 Plt Count 73 Th/cmm (150-400) L D 03/12/17 07:00 MPV 9.2 fl 03/12/17 07:00 Neutrophils % 75.8 % (40.0-80.0) 03/12/17 07:00 Band Neutrophils % 5 % (0-10) 03/06/17 06:00 Lymphocytes % 11.8 % (20.0-50.0) L 03/12/17 07:00 Monocytes % 6.5 % (2.0-10.0) 03/12/17 07:00 Eosinophils % 5.9 % (0.0-5.0) H 03/12/17 07:00 Basophils % 0.0 % (0.0-2.0) 03/12/17 07:00 Neutrophils (Manual) 85 % (40-80) H 03/06/17 06:00 Lymphocytes 4 % (20-50) L 03/06/17 06:00 Monocytes 3 % (2-10) 03/06/17 06:00 Eosinophils 3 % (0-5) 03/06/17 06:00 Metamyelocytes 1 % (0-0) H 02/18/17 23:35 Hypochromia 1+ 02/18/17 23:35 Platelet Estimate DECREASED PLATELETS (NORMAL) 03/06/17 06:00 Platelet Morphology (NORMAL) 03/04/17 08:00 Plt Count 73 Th/cmm (150-750) L 03/12/17 07:00 PT 14.1 SECONDS (9.5-11.5) H 03/12/17 07:00 INR 1.34 (0.5-1.4) 03/12/17 07:00 PTT (Actin FS) 44.3 SECONDS (26.0-38.0) H 03/12/17 07:00 Fibrinogen 243.0 mg/dL (200.0-400.0) 03/12/17 07:00 D-Dimer 1250 ng/mL (100-400) H 03/12/17 07:00 Specimen Source Arterial 03/11/17 09:40 Sample Site Right Radial 03/11/17 09:40 pH 7.29 (7.35-7.45) L 03/11/17 09:40 pCO2 44.0 mmHg (35.0-45.0) 03/11/17 09:40 pO2 66.0 mmHg (80.0-100.0) L 03/11/17 09:40 HCO3 20.6 mEq/L (20.0-26.0) 03/11/17 09:40 Base Excess -5.3 mEq/L (-3.0-3.0) L 03/11/17 09:40 O2 Saturation 90.0 % (92.0-100.0) L 03/11/17 09:40 Jorje Test YES 03/11/17 09:40 Vent Rate 4 03/11/17 09:40 Inspired O2 30 03/11/17 09:40 Tidal Volume 550 03/11/17 09:40 PEEP 5 03/11/17 09:40 Pressure (ins/psv/peep) 15 03/11/17 09:40 Critical Value E.HERNANDEZ 03/11/17 09:40 Sodium 137 mEq/L (136-145) 03/11/17 08:15 Potassium 3.7 mEq/L (3.5-5.1) 03/11/17 08:15 Chloride 110 mEq/L (98-107) H 03/11/17 08:15 Carbon Dioxide 18.7 mEq/L (21.0-31.0) L 03/11/17 08:15 Anion Gap 12.0 (7.0-16.0) 03/11/17 08:15 BUN 49 mg/dL (7-25) H 03/11/17 08:15 Creatinine 1.6 mg/dL (0.6-1.2) H 03/11/17 08:15 Est GFR ( Amer) 41.1 ml/min (>90) 03/11/17 08:15 Est GFR (Non-Af Amer) 34.0 ml/min 03/11/17 08:15 BUN/Creatinine Ratio 30.6 03/11/17 08:15 Glucose 145 mg/dL (70-105) H 03/11/17 08:15 POC Glucose 147 MG/DL (70 - 105) H 03/11/17 04:32 Hemoglobin A1c % 5.8 % (4.0-6.0) 02/22/17 10:38 Whole Bld Lactic Acid 2.40 mmol/L (0.60-1.99) H* 02/27/17 15:04 Calcium 8.0 mg/dL (8.6-10.3) L 03/11/17 08:15 Phosphorus 2.5 mg/dL (2.5-5.0) 03/01/17 09:15 Magnesium 2.1 mg/dL (1.9-2.7) 03/01/17 09:15 Total Bilirubin 0.5 mg/dL (0.3-1.0) 03/11/17 08:15 Direct Bilirubin 0.09 mg/dL (0.0-0.2) 02/18/17 23:35 AST 19 U/L (13-39) 03/11/17 08:15 ALT 5 U/L (7-52) L 03/11/17 08:15 Alkaline Phosphatase 69 U/L (34-104) 03/11/17 08:15 Ammonia 38 umol/L (16-53) 03/01/17 17:28 B-Natriuretic Peptide 158.0 pg/mL (5.0-100.0) H 03/04/17 15:39 Total Protein 5.2 gm/dL (6.0-8.3) L 03/11/17 08:15 Albumin 2.9 gm/dL (3.7-5.3) L 03/11/17 08:15 Globulin 2.3 gm/dL 03/11/17 08:15 Albumin/Globulin Ratio 1.3 (1.0-1.8) 03/11/17 08:15 Amylase 36 U/L (29-103) 02/18/17 23:35 Lipase 10 U/L (11-82) L 02/18/17 23:35 Vitamin B12 860 pg/mL (232-1245) 02/26/17 04:45 Free T4 1.04 ng/dL (0.82-1.77) 02/25/17 04:50 Free T3 0.7 pg/mL (2.0-4.4) L 02/25/17 04:50 TSH 0.84 uIU/ml (0.34-5.60) 02/25/17 04:50 Total Cortisol 12.3 02/24/17 07:50 Urine Source [place] 02/27/17 15:00 Urine Color YELLOW 02/27/17 15:00 Urine Clarity CLOUDY (CLEAR) H 02/27/17 15:00 Urine pH 5.5 (4.6 - 8.0) 02/27/17 15:00 Ur Specific [place] <= 1.005 (1.005-1.030) 02/27/17 15:00 Urine Protein TRACE mg/dL (NEGATIVE) 02/27/17 15:00 Urine Glucose (UA) NEGATIVE mg/dL (NEGATIVE) 02/27/17 15:00 Urine Ketones NEGATIVE mg/dL (NEGATIVE) 02/27/17 15:00 Urine Blood LARGE (NEGATIVE) H 02/27/17 15:00 Urine Nitrate NEGATIVE (NEGATIVE) 02/27/17 15:00 Urine Bilirubin NEGATIVE (NEGATIVE) 02/27/17 15:00 Urine Urobilinogen 0.2 E.U./dL (0.2 - 1.0) 02/27/17 15:00 Ur Leukocyte Esterase LARGE (NEGATIVE) H 02/27/17 15:00 Urine RBC 10-25 /hpf (0-5) H 02/27/17 15:00 Urine WBC >100 /hpf (0-5) H 02/27/17 15:00 Ur Epithelial Cells MODERATE /lpf (FEW) 02/27/17 15:00 Urine Bacteria MODERATE /hpf (NONE SEEN) H 12/31/17 15:00 Urine Yeast MODERATE /hpf (NONE SEEN) H 02/20/17 16:15 Stool Occult Blood NEGATIVE (NEGATIVE) 03/11/17 17:25 Blood Type A POSITIVE 03/10/17 11:00 Antibody Screen NEGATIVE 03/10/17 11:00 Crossmatch See Detail 03/10/17 11:00 - Physical Exam Vitals and I&O: Vital Signs Temp 96.1 F 03/12/17 08:00 Pulse 72 03/12/17 08:19 Resp 12 03/12/17 08:22 BP 102/32 03/12/17 09:13 Pulse Ox 100 03/12/17 08:19 Intake & Output 03/11/17 03/12/17 03/12/17 18:59 06:59 18:59 Intake Total 450.167 600 Output Total 220 200 Balance 230.167 400 Weight (lbs) 122.924 kg 123.377 kg Intake: Intake, IV Amount 400.167 500 Meropenem 1 gm In 200 100 Dextrose 5% 100 ml @ 100 mls/hr IV Q12H [facility] Rx#: [id number] Pantoprazole 80 mg In 0.167 200 Sodium Chloride 0.9% 100 ml @ 10 mls/hr IV Q10H [facility] Rx#:[id number] metroNIDAZOLE 500mg/NS 200 200 100mL 500 mg In 100 ml @ 100 mls/hr IV Q8HR [facility] Rx #:[id number] Tube Feeding 100 Other 50 Output: Urine 220 200 Other: # Bowel Movements 2 Stool Characteristics Liquid Liquid Brown Brown Active Medications: Current Medications Acetaminophen (Tylenol) 650 mg PO Q4HR PRN PRN Reason: Pain (Mild) Stop: 04/20/17 12:01 Last Admin: 03/06/17 03:23 Dose: 650 mg Albuterol/Ipratropium (Duoneb Neb) 3 ml HHN Q4HRT PRN PRN Reason: Wheezing Stop: 04/27/17 19:59 Last Admin: 02/28/17 03:18 Dose: 3 ml Albuterol/Ipratropium (Duoneb Neb) 3 ml HHN [id number] [facility] Stop: 04/27/17 19:59 Last Admin: 03/12/17 08:12 Dose: 3 ml Chlorhexidine Gluconate (Peridex) 15 ml MM 0800,1999 [facility] Stop: 04/28/17 19:59 Last Admin: 03/12/17 08:15 Dose: 15 ml Diltiazem HCl (Cardizem) 5 mg IVP Q4H PRN PRN Reason: HR > 120 Stop: 04/27/17 19:59 Last Admin: 02/27/17 04:59 Dose: 5 mg Docusate Sodium (Colace) 100 mg PO BID [facility] Stop: 04/20/17 16:59 Last Admin: 03/12/17 09:12 Dose: 100 mg Furosemide (Lasix) 40 mg IVP BID [facility] Stop: 05/08/17 08:59 Last Admin: 03/12/17 09:13 Dose: 40 mg Pantoprazole Sodium 80 mg/ (Sodium Chloride) 100 mls @ 10 mls/hr IV Q10H [facility] Stop: 04/20/17 08:59 Last Admin: 03/12/17 05:50 Dose: 10 mls/hr Phenylephrine HCl 10 mg/ (Sodium Chloride) 250 mls @ 0 mls/hr IV TITR [facility]; Per Protocol PRN Reason: Protocol Stop: 04/28/17 07:59 Norepinephrine Bitartrate 8 mg (/ Sodium Chloride) 258 mls @ 0 mls/hr IV TITR [facility]; Per Protocol PRN Reason: Protocol Stop: 04/28/17 09:59 Last Titration: 03/10/17 09:17 Dose: 0 mcg/min, 0 mls/hr Metronidazole (Flagyl) 500 mg in 100 mls @ 100 mls/hr IV Q8HR [facility] Stop: 05/04/17 20:59 Last Infusion: 03/12/17 05:58 Dose: Infused Meropenem 1 gm/ Sodium (Chloride) 50 mls @ 100 mls/hr IV Q12H [facility] Stop: 05/11/17 10:59 Insulin Aspart (Novolog Insulin Sliding Scale) 0 units SUBQ Q6H [facility] PRN Reason: Protocol Stop: 05/03/17 00:00 Last Admin: 03/12/17 06:01 Dose: Not Given Metoclopramide HCl (Reglan) 5 mg IVP Q6HR [facility] Stop: 05/05/17 17:59 Last Admin: 03/12/17 06:04 Dose: 5 mg Metolazone (Zaroxolyn) 5 mg PO DAILY [facility] Stop: 05/10/17 13:14 Last Admin: 03/12/17 09:12 Dose: 5 mg Mirtazapine (Remeron) 15 mg PO HS [facility] PRN Reason: Protocol Stop: 04/26/17 20:59 Last Admin: 03/11/17 20:33 Dose: 15 mg Miscellaneous (Probiotic Screen) 1 ea [facility] PRN PRN PRN Reason: PROTOCOL Stop: 04/21/17 16:25 Miscellaneous (Communication Order) 1 ea MC PRN [facility] Stop: 05/10/17 13:14 Morphine Sulfate (Morphine) 1 mg IVP Q4HR PRN PRN Reason: Severe Pain Stop: 05/04/17 14:13 Last Admin: 03/12/17 09:45 Dose: 1 mg Nitroglycerin (Nitrostat) 0.4 mg SL Q5MIN PRN PRN Reason: Chest Pain Stop: 04/20/17 12:01 Nystatin (Nystop) 100,000 units TP BID PRN PRN Reason: SKIN EXCORIATIONS Stop: 04/21/17 15:35 Last Admin: 03/08/17 06:00 Dose: 100,000 units Ondansetron HCl (Zofran) 4 mg IV Q6H PRN PRN Reason: Nausea Stop: 04/20/17 03:38 General: No acute distress HEENT: Atraumatic, EOMI Neck: Supple, JVD, +2 carotid pulse wo bruit Cardiovascular: Regular rate, Normal S1, Normal S2 Lungs: Other (coarse rhonchi) Abdomen: Bowel sounds, Soft Extremities: Edema, Other ((+3) bipedal edema) Neurological: Sensation intact Skin: no Rash Psych/Mental Status: Mood NL - Procedures Procedures: Procedures Procedure Code Date INSERT EMERGENCY AIRWAY 61993 02/19/17 INSERTION OF ENDOTRACHEAL AIRWAY INTO [place], VIA OPENING [id number] 02/19/17 RESPIRATORY VENTILATION, GREATER THAN 96 CONSECUTIVE HOURS [id number] 02/19/17 VENT MGMT INPAT INIT DAY 02/19/17 VENT MGMT INPAT SUBQ DAY 26801 02/19/17 Assessment/Plan - Problem List Patient Problems: All Active Problems Acute kidney failure (Acute) 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 Azotemia (Acute) R79.89 Bradycardia (Acute) R00.1 COPD (chronic obstructive pulmonary disease) (Acute) Cardiomegaly (Acute) I51.7 Chest pain (Acute) R07.9 Decubitus ulcer of buttock, 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 Nutritional Asmnt/Malnutr-PDOC - Dietary Evaluation Malnutrition Findings (Please click <Entered> for more info): Nutritional Asmnt/Malnutrition Start: 02/21/17 18: 20 Text: Status: Complete Freq: Document 02/21/17 18:21 LCHENG (Rec: 02/21/17 18:32 LCHEN [email or web address]) Nutritional Asmnt/Malnutrition Patient General Information Nutritional Screening High Risk Consult Diagnosis gastric outlet obstruction Pertinent Medical Hx/Surgical Hx HTN, OA, DM, GERD Subjective Information Pt seen sleeping at the time of visit, attempted x 2. Spoke with RN, pt consumed 50% of breakfast and only the soup of lunch today, not much appetite, no complain of N/V. Pt will be NPO from midnight for GI exam tommorrow. Current Diet Order/ Nutrition Support no added salt 4gm, CCHO, no eggs, banana and cereal in morning Pertinent Medications colace, lasix, novolog, levaquin, piperacillin Pertinent Labs 02/20 Na 137, K 4.5, Cl 104, BUN 55, Cr 1.6, Glucose 137, POC 126-199 since admit, Ca 8. 3 Nutritional Hx/Data Height 1.57 m Height (Calculated Centimeters) 157.5 Current Weight (lbs) 97.023 kg Weight (Calculated Kilograms) 97.0 Weight (Calculated Grams) 29029.4 [place] Body Weight 110 % [place] Body Weight 194 Body Mass Index (BMI) 39.1 Weight Status Obese GI Symptoms GI Symptoms None Last BM none Difficult in: None Skin Integrity/Comment: multiple maceration, abrasion to right/left medial thigh Current %PO Poor (25-49%) Estimated Nutritional Goals BEE in Kcals: Adj wt of IBW Calories/Kcals/Kg 27-32 Kcals Calculated Protein: Adj wt of IBW Protein g/k-1.2 Protein Calculated 62-74 Fluid: ml Nutritional Problem 1. Problem Problem inadequate PO intake Etiology poor appetite Signs/Symptoms: PO intake 25-50% Malnutrition Alert Protein-Calorie Malnutrition N/A Is there a minimum of two criteria No selected? Query Text:Check all the applicable criteria. A minimum of two criteria are recommended for diagnosis of either severe or non-severe malnutrition. Intervention/Recommendation Comments 1. Continue with current diet as ordered. 2. Monitor PO intake, GI symptons, wt, labs and skin integrity 3. F/U as high risk in 2-3 days, 02/23-02/24 Expected Outcomes/Goals Expected Outcomes/Goals 1. PO intake to meet at least 75% of nutritional needs. 2. Wt stability, skin to remain intact, labs to improve
--- NOTE | 2017-03-12 11:25 | General Progress Note ---
Subjective - Review of Systems Service Date: 03/12/17 Objective - Results Result Diagrams: 03/12/17 07:00 03/11/17 08:15 Recent Labs: Laboratory Last Values WBC 9.4 Th/cmm (4.8-10.8) 03/12/17 07:00 RBC 2.63 Mil/cmm (3.80-5.20) L 03/12/17 07:00 Hgb 7.9 gm/dL (12-16) L* 03/12/17 07:00 Hct 23.1 % (41.0-60) L 03/12/17 07:00 MCV 87.7 fl (81-100) 03/12/17 07:00 MCH 30.0 pg (27.0-31.0) 03/12/17 07:00 MCHC Differential 34.2 pg (28.0-36.0) 03/12/17 07:00 RDW 14.4 % (11.5-20.0) 03/12/17 07:00 Plt Count 73 Th/cmm (150-400) L D 03/12/17 07:00 MPV 9.2 fl 03/12/17 07:00 Neutrophils % 75.8 % (40.0-80.0) 03/12/17 07:00 Band Neutrophils % 5 % (0-10) 03/06/17 06:00 Lymphocytes % 11.8 % (20.0-50.0) L 03/12/17 07:00 Monocytes % 6.5 % (2.0-10.0) 03/12/17 07:00 Eosinophils % 5.9 % (0.0-5.0) H 03/12/17 07:00 Basophils % 0.0 % (0.0-2.0) 03/12/17 07:00 Neutrophils (Manual) 85 % (40-80) H 03/06/17 06:00 Lymphocytes 4 % (20-50) L 03/06/17 06:00 Monocytes 3 % (2-10) 03/06/17 06:00 Eosinophils 3 % (0-5) 03/06/17 06:00 Metamyelocytes 1 % (0-0) H 02/18/17 23:35 Hypochromia 1+ 02/18/17 23:35 Platelet Estimate DECREASED PLATELETS (NORMAL) 03/06/17 06:00 Platelet Morphology (NORMAL) 03/04/17 08:00 Plt Count 73 Th/cmm (150-750) L 03/12/17 07:00 PT 14.1 SECONDS (9.5-11.5) H 03/12/17 07:00 INR 1.34 (0.5-1.4) 03/12/17 07:00 PTT (Actin FS) 44.3 SECONDS (26.0-38.0) H 03/12/17 07:00 Fibrinogen 243.0 mg/dL (200.0-400.0) 03/12/17 07:00 D-Dimer 1250 ng/mL (100-400) H 03/12/17 07:00 Specimen Source Arterial 03/11/17 09:40 Sample Site Right Radial 03/11/17 09:40 pH 7.29 (7.35-7.45) L 03/11/17 09:40 pCO2 44.0 mmHg (35.0-45.0) 03/11/17 09:40 pO2 66.0 mmHg (80.0-100.0) L 03/11/17 09:40 HCO3 20.6 mEq/L (20.0-26.0) 03/11/17 09:40 Base Excess -5.3 mEq/L (-3.0-3.0) L 03/11/17 09:40 O2 Saturation 90.0 % (92.0-100.0) L 03/11/17 09:40 Jorje Test YES 03/11/17 09:40 Vent Rate 4 03/11/17 09:40 Inspired O2 30 03/11/17 09:40 Tidal Volume 550 03/11/17 09:40 PEEP 5 03/11/17 09:40 Pressure (ins/psv/peep) 15 03/11/17 09:40 Critical Value E.HERNANDEZ 03/11/17 09:40 Sodium 137 mEq/L (136-145) 03/11/17 08:15 Potassium 3.7 mEq/L (3.5-5.1) 03/11/17 08:15 Chloride 110 mEq/L (98-107) H 03/11/17 08:15 Carbon Dioxide 18.7 mEq/L (21.0-31.0) L 03/11/17 08:15 Anion Gap 12.0 (7.0-16.0) 03/11/17 08:15 BUN 49 mg/dL (7-25) H 03/11/17 08:15 Creatinine 1.6 mg/dL (0.6-1.2) H 03/11/17 08:15 Est GFR ( Amer) 41.1 ml/min (>90) 03/11/17 08:15 Est GFR (Non-Af Amer) 34.0 ml/min 03/11/17 08:15 BUN/Creatinine Ratio 30.6 03/11/17 08:15 Glucose 145 mg/dL (70-105) H 03/11/17 08:15 POC Glucose 147 MG/DL (70 - 105) H 03/11/17 04:32 Hemoglobin A1c % 5.8 % (4.0-6.0) 02/22/17 10:38 Whole Bld Lactic Acid 2.40 mmol/L (0.60-1.99) H* 02/27/17 15:04 Calcium 8.0 mg/dL (8.6-10.3) L 03/11/17 08:15 Phosphorus 2.5 mg/dL (2.5-5.0) 03/01/17 09:15 Magnesium 2.1 mg/dL (1.9-2.7) 03/01/17 09:15 Total Bilirubin 0.5 mg/dL (0.3-1.0) 03/11/17 08:15 Direct Bilirubin 0.09 mg/dL (0.0-0.2) 02/18/17 23:35 AST 19 U/L (13-39) 03/11/17 08:15 ALT 5 U/L (7-52) L 03/11/17 08:15 Alkaline Phosphatase 69 U/L (34-104) 03/11/17 08:15 Ammonia 38 umol/L (16-53) 03/01/17 17:28 B-Natriuretic Peptide 158.0 pg/mL (5.0-100.0) H 03/04/17 15:39 Total Protein 5.2 gm/dL (6.0-8.3) L 03/11/17 08:15 Albumin 2.9 gm/dL (3.7-5.3) L 03/11/17 08:15 Globulin 2.3 gm/dL 03/11/17 08:15 Albumin/Globulin Ratio 1.3 (1.0-1.8) 03/11/17 08:15 Amylase 36 U/L (29-103) 02/18/17 23:35 Lipase 10 U/L (11-82) L 02/18/17 23:35 Vitamin B12 860 pg/mL (232-1245) 02/26/17 04:45 Free T4 1.04 ng/dL (0.82-1.77) 02/25/17 04:50 Free T3 0.7 pg/mL (2.0-4.4) L 02/25/17 04:50 TSH 0.84 uIU/ml (0.34-5.60) 02/25/17 04:50 Total Cortisol 12.3 02/24/17 07:50 Urine Source [place] 02/27/17 15:00 Urine Color YELLOW 02/27/17 15:00 Urine Clarity CLOUDY (CLEAR) H 02/27/17 15:00 Urine pH 5.5 (4.6 - 8.0) 02/27/17 15:00 Ur Specific [place] <= 1.005 (1.005-1.030) 02/27/17 15:00 Urine Protein TRACE mg/dL (NEGATIVE) 02/27/17 15:00 Urine Glucose (UA) NEGATIVE mg/dL (NEGATIVE) 02/27/17 15:00 Urine Ketones NEGATIVE mg/dL (NEGATIVE) 02/27/17 15:00 Urine Blood LARGE (NEGATIVE) H 02/27/17 15:00 Urine Nitrate NEGATIVE (NEGATIVE) 02/27/17 15:00 Urine Bilirubin NEGATIVE (NEGATIVE) 02/27/17 15:00 Urine Urobilinogen 0.2 E.U./dL (0.2 - 1.0) 02/27/17 15:00 Ur Leukocyte Esterase LARGE (NEGATIVE) H 02/27/17 15:00 Urine RBC 10-25 /hpf (0-5) H 02/27/17 15:00 Urine WBC >100 /hpf (0-5) H 02/27/17 15:00 Ur Epithelial Cells MODERATE /lpf (FEW) 02/27/17 15:00 Urine Bacteria MODERATE /hpf (NONE SEEN) H 02/27/17 15:00 Urine Yeast MODERATE /hpf (NONE SEEN) H 02/20/17 16:15 Stool Occult Blood NEGATIVE (NEGATIVE) 03/11/17 17:25 Blood Type A POSITIVE 03/10/17 11:00 Antibody Screen NEGATIVE 03/10/17 11:00 Crossmatch See Detail 03/10/17 11:00 - Physical Exam Vitals and I&O: Vital Signs Temp 96.1 F 03/12/17 10:00 Pulse 76 03/12/17 10:00 Resp 17 03/12/17 10:00 BP 93/35 03/12/17 10:00 Pulse Ox 100 03/12/17 10:00 Intake & Output 03/11/17 03/12/17 03/12/17 18:59 06:59 18:59 Intake Total 450.167 600 Output Total 220 200 Balance 230.167 400 Weight (lbs) 122.924 kg 123.377 kg Intake: Intake, IV Amount 400.167 500 Meropenem 1 gm In 200 100 Dextrose 5% 100 ml @ 100 mls/hr IV Q12H [facility] Rx#: [id number] Pantoprazole 80 mg In 0.167 200 Sodium Chloride 0.9% 100 ml @ 10 mls/hr IV Q10H [facility] Rx#:[id number] metroNIDAZOLE 500mg/NS 200 200 100mL 500 mg In 100 ml @ 100 mls/hr IV Q8HR [facility] Rx #:[id number] Tube Feeding 100 Other 50 Output: Urine 220 200 Other: # Bowel Movements 2 Stool Characteristics Liquid Liquid Brown Brown Active Medications: Current Medications Acetaminophen (Tylenol) 650 mg PO Q4HR PRN PRN Reason: Pain (Mild) Stop: 04/20/17 12:01 Last Admin: 03/06/17 03:23 Dose: 650 mg Albuterol/Ipratropium (Duoneb Neb) 3 ml HHN Q4HRT PRN PRN Reason: Wheezing Stop: 04/27/17 19:59 Last Admin: 02/28/17 03:18 Dose: 3 ml Albuterol/Ipratropium (Duoneb Neb) 3 ml HHN [id number] [facility] Stop: 04/27/17 19:59 Last Admin: 03/12/17 08:12 Dose: 3 ml Chlorhexidine Gluconate (Peridex) 15 ml MM 0800,1999 [facility] Stop: 04/28/17 19:59 Last Admin: 03/12/17 08:15 Dose: 15 ml Diltiazem HCl (Cardizem) 5 mg IVP Q4H PRN PRN Reason: HR > 120 Stop: 04/27/17 19:59 Last Admin: 02/27/17 04:59 Dose: 5 mg Docusate Sodium (Colace) 100 mg PO BID [facility] Stop: 04/20/17 16:59 Last Admin: 03/12/17 09:12 Dose: 100 mg Furosemide (Lasix) 40 mg IVP BID [facility] Stop: 05/08/17 08:59 Last Admin: 03/12/17 09:13 Dose: 40 mg Pantoprazole Sodium 80 mg/ (Sodium Chloride) 100 mls @ 10 mls/hr IV Q10H [facility] Stop: 04/20/17 08:59 Last Admin: 03/12/17 05:50 Dose: 10 mls/hr Phenylephrine HCl 10 mg/ (Sodium Chloride) 250 mls @ 0 mls/hr IV TITR [facility]; Per Protocol PRN Reason: Protocol Stop: 04/28/17 07:59 Norepinephrine Bitartrate 8 mg (/ Sodium Chloride) 258 mls @ 0 mls/hr IV TITR [facility]; Per Protocol PRN Reason: Protocol Stop: 04/28/17 09:59 Last Titration: 03/10/17 09:17 Dose: 0 mcg/min, 0 mls/hr Metronidazole (Flagyl) 500 mg in 100 mls @ 100 mls/hr IV Q8HR [facility] Stop: 05/04/17 20:59 Last Infusion: 03/12/17 05:58 Dose: Infused Meropenem 1 gm/ Sodium (Chloride) 50 mls @ 100 mls/hr IV Q12H [facility] Stop: 05/11/17 10:59 Last Admin: 03/12/17 10:45 Dose: 100 mls/hr Insulin Aspart (Novolog Insulin Sliding Scale) 0 units SUBQ Q6H [facility] PRN Reason: Protocol Stop: 05/03/17 00:00 Last Admin: 03/12/17 06:01 Dose: Not Given Metoclopramide HCl (Reglan) 5 mg IVP Q6HR [facility] Stop: 05/05/17 17:59 Last Admin: 03/12/17 06:04 Dose: 5 mg Metolazone (Zaroxolyn) 5 mg PO DAILY [facility] Stop: 05/10/17 13:14 Last Admin: 03/12/17 09:12 Dose: 5 mg Mirtazapine (Remeron) 15 mg PO HS PATRIA PRN Reason: Protocol Stop: 04/26/17 20:59 Last Admin: 03/11/17 20:33 Dose: 15 mg Miscellaneous (Probiotic Screen) 1 ea MC PRN PRN PRN Reason: PROTOCOL Stop: 04/21/17 16:25 Miscellaneous (Communication Order) 1 ea MC PRN PATRIA Stop: 05/10/17 13:14 Morphine Sulfate (Morphine) 1 mg IVP Q4HR PRN PRN Reason: Severe Pain Stop: 05/04/17 14:13 Last Admin: 03/12/17 09:45 Dose: 1 mg Nitroglycerin (Nitrostat) 0.4 mg SL Q5MIN PRN PRN Reason: Chest Pain Stop: 04/20/17 12:01 Nystatin (Nystop) 100,000 units TP BID PRN PRN Reason: SKIN EXCORIATIONS Stop: 04/21/17 15:35 Last Admin: 03/08/17 06:00 Dose: 100,000 units Ondansetron HCl (Zofran) 4 mg IV Q6H PRN PRN Reason: Nausea Stop: 04/20/17 03:38 General: No acute distress HEENT: Atraumatic, EOMI Neck: Supple, JVD, +2 carotid pulse wo bruit Cardiovascular: Regular rate, Normal S1, Normal S2 Lungs: Other (coarse rhonchi) Abdomen: Bowel sounds, Soft Extremities: Edema, Other ((+3) bipedal edema) Neurological: Sensation intact Skin: no Rash Psych/Mental Status: Mood NL - Procedures Procedures: Procedures Procedure Code Date INSERT EMERGENCY AIRWAY [id number] 02/19/17 INSERTION OF ENDOTRACHEAL AIRWAY INTO [place], VIA OPENING [id number] 02/19/17 RESPIRATORY VENTILATION, GREATER THAN 96 CONSECUTIVE HOURS [id number] 02/19/17 VENT MGMT INPAT INIT DAY 02/19/17 VENT MGMT INPAT SUBQ DAY 62230 02/19/17 Assessment/Plan - Problem List Patient Problems: All Active Problems Acute kidney failure (Acute) 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 Azotemia (Acute) R79.89 Bradycardia (Acute) R00.1 COPD (chronic obstructive pulmonary disease) (Acute) Cardiomegaly (Acute) I51.7 Chest pain (Acute) R07.9 Decubitus ulcer of buttock, 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 - Assessment Assessment: * SEPTIC SHOCK * DIC * RESPIRATORY FAILURE * RENAL FAILURE TRANSFUSE FFP BEFORE TRACHEOSTOMY FOLLOW DIC PARAMETERS Nutritional Asmnt/Malnutr-PDOC - Dietary Evaluation Malnutrition Findings (Please click <Entered> for more info): Nutritional Asmnt/Malnutrition Start: 02/21/17 18: 20 Text: Status: Complete Freq: Document 02/21/17 18:21 LCANCELMOG (Rec: 02/21/17 18:32 [email or web address] [id number]) Nutritional Asmnt/Malnutrition Patient General Information Nutritional Screening High Risk Consult Diagnosis gastric outlet obstruction Pertinent Medical Hx/Surgical Hx HTN, OA, DM, GERD Subjective Information Pt seen sleeping at the time of visit, attempted x 2. Spoke with RN, pt consumed 50% of breakfast and only the soup of lunch today, not much appetite, no complain of N/V. Pt will be NPO from midnight for GI exam tommorrow. Current Diet Order/ Nutrition Support no added salt 4gm, CCHO, no eggs, banana and cereal in morning Pertinent Medications colace, lasix, novolog, levaquin, piperacillin Pertinent Labs 02/20 Na 137, K 4.5, Cl 104, BUN 55, Cr 1.6, Glucose 137, POC 126-199 since admit, Ca 8. 3 Nutritional Hx/Data Height 1.57 m Height (Calculated Centimeters) 157.5 Current Weight (lbs) 97.023 kg Weight (Calculated Kilograms) 97.0 Weight (Calculated Grams) 65727.4 [place] Body Weight 110 % [place] Body Weight 194 Body Mass Index (BMI) 39.1 Weight Status Obese GI Symptoms GI Symptoms None Last BM none Difficult in: None Skin Integrity/Comment: multiple maceration, abrasion to right/left medial thigh Current %PO Poor (25-49%) Estimated Nutritional Goals BEE in Kcals: Adj wt of IBW Calories/Kcals/Kg 27-32 Kcals Calculated Protein: Adj wt of IBW Protein g/k-1.2 Protein Calculated 62-74 Fluid: ml Nutritional Problem 1. Problem Problem inadequate PO intake Etiology poor appetite Signs/Symptoms: PO intake 25-50% Malnutrition Alert Protein-Calorie Malnutrition N/A Is there a minimum of two criteria No selected? Query Text:Check all the applicable criteria. A minimum of two criteria are recommended for diagnosis of either severe or non-severe malnutrition. Intervention/Recommendation Comments 1. Continue with current diet as ordered. 2. Monitor PO intake, GI symptons, wt, labs and skin integrity 3. F/U as high risk in 2-3 days, 02/23-02/24 Expected Outcomes/Goals Expected Outcomes/Goals 1. PO intake to meet at least 75% of nutritional needs. 2. Wt stability, skin to remain intact, labs to improve
--- NOTE | 2017-03-12 13:04 | General Progress Note ---
Subjective - Review of Systems Service Date: 03/12/17 Subjective: opens eyes, on vent Objective - Results Result Diagrams: 03/12/17 07:00 03/11/17 08:15 Recent Labs: Laboratory Last Values WBC 9.4 Th/cmm (4.8-10.8) 03/12/17 07:00 RBC 2.63 Mil/cmm (3.80-5.20) L 03/12/17 07:00 Hgb 7.9 gm/dL (12-16) L* 03/12/17 07:00 Hct 23.1 % (41.0-60) L 03/12/17 07:00 MCV 87.7 fl (81-100) 03/12/17 07:00 MCH 30.0 pg (27.0-31.0) 03/12/17 07:00 MCHC Differential 34.2 pg (28.0-36.0) 03/12/17 07:00 RDW 14.4 % (11.5-20.0) 03/12/17 07:00 Plt Count 73 Th/cmm (150-400) L D 03/12/17 07:00 MPV 9.2 fl 03/12/17 07:00 Neutrophils % 75.8 % (40.0-80.0) 03/12/17 07:00 Band Neutrophils % 5 % (0-10) 03/06/17 06:00 Lymphocytes % 11.8 % (20.0-50.0) L 03/12/17 07:00 Monocytes % 6.5 % (2.0-10.0) 03/12/17 07:00 Eosinophils % 5.9 % (0.0-5.0) H 03/12/17 07:00 Basophils % 0.0 % (0.0-2.0) 03/12/17 07:00 Neutrophils (Manual) 85 % (40-80) H 03/06/17 06:00 Lymphocytes 4 % (20-50) L 03/06/17 06:00 Monocytes 3 % (2-10) 03/06/17 06:00 Eosinophils 3 % (0-5) 03/06/17 06:00 Metamyelocytes 1 % (0-0) H 02/18/17 23:35 Hypochromia 1+ 02/18/17 23:35 Platelet Estimate DECREASED PLATELETS (NORMAL) 03/06/17 06:00 Platelet Morphology (NORMAL) 03/04/17 08:00 Plt Count 73 Th/cmm (150-750) L 03/12/17 07:00 PT 14.1 SECONDS (9.5-11.5) H 03/12/17 07:00 INR 1.34 (0.5-1.4) 03/12/17 07:00 PTT (Actin FS) 44.3 SECONDS (26.0-38.0) H 03/12/17 07:00 Fibrinogen 243.0 mg/dL (200.0-400.0) 03/12/17 07:00 D-Dimer 1250 ng/mL (100-400) H 03/12/17 07:00 Specimen Source Arterial 03/11/17 09:40 Sample Site Right Radial 03/11/17 09:40 pH 7.29 (7.35-7.45) L 03/11/17 09:40 pCO2 44.0 mmHg (35.0-45.0) 03/11/17 09:40 pO2 66.0 mmHg (80.0-100.0) L 03/11/17 09:40 HCO3 20.6 mEq/L (20.0-26.0) 03/11/17 09:40 Base Excess -5.3 mEq/L (-3.0-3.0) L 03/11/17 09:40 O2 Saturation 90.0 % (92.0-100.0) L 03/11/17 09:40 Jorje Test YES 03/11/17 09:40 Vent Rate 4 03/11/17 09:40 Inspired O2 30 03/11/17 09:40 Tidal Volume 550 03/11/17 09:40 PEEP 5 03/11/17 09:40 Pressure (ins/psv/peep) 15 03/11/17 09:40 Critical Value E.HERNANDEZ 03/11/17 09:40 Sodium 137 mEq/L (136-145) 03/11/17 08:15 Potassium 3.7 mEq/L (3.5-5.1) 03/11/17 08:15 Chloride 110 mEq/L (98-107) H 03/11/17 08:15 Carbon Dioxide 18.7 mEq/L (21.0-31.0) L 03/11/17 08:15 Anion Gap 12.0 (7.0-16.0) 03/11/17 08:15 BUN 49 mg/dL (7-25) H 03/11/17 08:15 Creatinine 1.6 mg/dL (0.6-1.2) H 03/11/17 08:15 Est GFR ( Amer) 41.1 ml/min (>90) 03/11/17 08:15 Est GFR (Non-Af Amer) 34.0 ml/min 03/11/17 08:15 BUN/Creatinine Ratio 30.6 03/11/17 08:15 Glucose 145 mg/dL (70-105) H 03/11/17 08:15 POC Glucose 147 MG/DL (70 - 105) H 03/11/17 04:32 Hemoglobin A1c % 5.8 % (4.0-6.0) 02/22/17 10:38 Whole Bld Lactic Acid 2.40 mmol/L (0.60-1.99) H* 02/27/17 15:04 Calcium 8.0 mg/dL (8.6-10.3) L 03/11/17 08:15 Phosphorus 2.5 mg/dL (2.5-5.0) 03/01/17 09:15 Magnesium 2.1 mg/dL (1.9-2.7) 03/01/17 09:15 Total Bilirubin 0.5 mg/dL (0.3-1.0) 03/11/17 08:15 Direct Bilirubin 0.09 mg/dL (0.0-0.2) 02/18/17 23:35 AST 19 U/L (13-39) 03/11/17 08:15 ALT 5 U/L (7-52) L 03/11/17 08:15 Alkaline Phosphatase 69 U/L (34-104) 03/11/17 08:15 Ammonia 38 umol/L (16-53) 03/01/17 17:28 B-Natriuretic Peptide 158.0 pg/mL (5.0-100.0) H 03/04/17 15:39 Total Protein 5.2 gm/dL (6.0-8.3) L 03/11/17 08:15 Albumin 2.9 gm/dL (3.7-5.3) L 03/11/17 08:15 Globulin 2.3 gm/dL 03/11/17 08:15 Albumin/Globulin Ratio 1.3 (1.0-1.8) 03/11/17 08:15 Amylase 36 U/L (29-103) 02/18/17 23:35 Lipase 10 U/L (11-82) L 02/18/17 23:35 Vitamin B12 860 pg/mL (232-1245) 02/26/17 04:45 Free T4 1.04 ng/dL (0.82-1.77) 02/25/17 04:50 Free T3 0.7 pg/mL (2.0-4.4) L 02/25/17 04:50 TSH 0.84 uIU/ml (0.34-5.60) 02/25/17 04:50 Total Cortisol 12.3 02/24/17 07:50 Urine Source [place] 02/27/17 15:00 Urine Color YELLOW 02/27/17 15:00 Urine Clarity CLOUDY (CLEAR) H 02/27/17 15:00 Urine pH 5.5 (4.6 - 8.0) 02/27/17 15:00 Ur Specific [place] <= 1.005 (1.005-1.030) 02/27/17 15:00 Urine Protein TRACE mg/dL (NEGATIVE) 02/27/17 15:00 Urine Glucose (UA) NEGATIVE mg/dL (NEGATIVE) 02/27/17 15:00 Urine Ketones NEGATIVE mg/dL (NEGATIVE) 02/27/17 15:00 Urine Blood LARGE (NEGATIVE) H 02/27/17 15:00 Urine Nitrate NEGATIVE (NEGATIVE) 02/27/17 15:00 Urine Bilirubin NEGATIVE (NEGATIVE) 02/27/17 15:00 Urine Urobilinogen 0.2 E.U./dL (0.2 - 1.0) 02/27/17 15:00 Ur Leukocyte Esterase LARGE (NEGATIVE) H 02/27/17 15:00 Urine RBC 10-25 /hpf (0-5) H 02/27/17 15:00 Urine WBC >100 /hpf (0-5) H 02/27/17 15:00 Ur Epithelial Cells MODERATE /lpf (FEW) 02/27/17 15:00 Urine Bacteria MODERATE /hpf (NONE SEEN) H 02/27/17 15:00 Urine Yeast MODERATE /hpf (NONE SEEN) H 02/20/17 16:15 Stool Occult Blood NEGATIVE (NEGATIVE) 03/11/17 17:25 Blood Type A POSITIVE 03/12/17 12:33 Antibody Screen NEGATIVE 03/12/17 12:33 Crossmatch See Detail 03/10/17 11:00 - Physical Exam Vitals and I&O: Vital Signs Temp 96 F 03/12/17 11:00 Pulse 74 03/12/17 11:35 Resp 21 03/12/17 11:00 BP 92/42 03/12/17 11:00 Pulse Ox 100 03/12/17 11:35 Intake & Output 03/11/17 03/12/17 03/12/17 18:59 06:59 18:59 Intake Total 450.167 600 50 Output Total 220 200 Balance 230.167 400 50 Weight (lbs) 122.924 kg 123.377 kg Intake: Intake, IV Amount 400.167 500 50 Meropenem 1 gm In 200 100 Dextrose 5% 100 ml @ 100 mls/hr IV Q12H [facility] Rx#: [id number] Meropenem 1 gm In Sodium 50 Chloride 0.9% 50 ml @ 100 mls/hr IV Q12H [facility] Rx#: [id number] Pantoprazole 80 mg In 0.167 200 Sodium Chloride 0.9% 100 ml @ 10 mls/hr IV Q10H [facility] Rx#:[id number] metroNIDAZOLE 500mg/NS 200 200 100mL 500 mg In 100 ml @ 100 mls/hr IV Q8HR [facility] Rx #:[id number] Tube Feeding 100 Other 50 Output: Urine 220 200 Other: # Bowel Movements 2 Stool Characteristics Liquid Liquid Brown Brown Active Medications: Current Medications Acetaminophen (Tylenol) 650 mg PO Q4HR PRN PRN Reason: Pain (Mild) Stop: 04/20/17 12:01 Last Admin: 03/06/17 03:23 Dose: 650 mg Albuterol/Ipratropium (Duoneb Neb) 3 ml HHN Q4HRT PRN PRN Reason: Wheezing Stop: 04/27/17 19:59 Last Admin: 02/28/17 03:18 Dose: 3 ml Albuterol/Ipratropium (Duoneb Neb) 3 ml HHN [id number] PATRIA Stop: 04/27/17 19:59 Last Admin: 03/12/17 08:12 Dose: 3 ml Chlorhexidine Gluconate (Peridex) 15 ml MM 799,1999 [facility] Stop: 04/28/17 19:59 Last Admin: 03/12/17 08:15 Dose: 15 ml Diltiazem HCl (Cardizem) 5 mg IVP Q4H PRN PRN Reason: HR > 120 Stop: 04/27/17 19:59 Last Admin: 02/27/17 04:59 Dose: 5 mg Docusate Sodium (Colace) 100 mg PO BID [facility] Stop: 04/20/17 16:59 Last Admin: 03/12/17 09:12 Dose: 100 mg Furosemide (Lasix) 40 mg IVP BID [facility] Stop: 05/08/17 08:59 Last Admin: 03/12/17 09:13 Dose: 40 mg Pantoprazole Sodium 80 mg/ (Sodium Chloride) 100 mls @ 10 mls/hr IV Q10H [facility] Stop: 04/20/17 08:59 Last Admin: 03/12/17 05:50 Dose: 10 mls/hr Phenylephrine HCl 10 mg/ (Sodium Chloride) 250 mls @ 0 mls/hr IV TITR PATRIA; Per Protocol PRN Reason: Protocol Stop: 04/28/17 07:59 Norepinephrine Bitartrate 8 mg (/ Sodium Chloride) 258 mls @ 0 mls/hr IV TITR PATRIA; Per Protocol PRN Reason: Protocol Stop: 04/28/17 09:59 Last Titration: 03/10/17 09:17 Dose: 0 mcg/min, 0 mls/hr Metronidazole (Flagyl) 500 mg in 100 mls @ 100 mls/hr IV Q8HR [facility] Stop: 05/04/17 20:59 Last Admin: 03/12/17 12:10 Dose: 100 mls/hr Meropenem 1 gm/ Sodium (Chloride) 50 mls @ 100 mls/hr IV Q12H [facility] Stop: 05/11/17 10:59 Last Infusion: 03/12/17 11:15 Dose: Infused Insulin Aspart (Novolog Insulin Sliding Scale) 0 units SUBQ Q6H PATRIA PRN Reason: Protocol Stop: 05/03/17 00:00 Last Admin: 03/12/17 12:12 Dose: Not Given Metoclopramide HCl (Reglan) 5 mg IVP Q6HR [facility] Stop: 05/05/17 17:59 Last Admin: 03/12/17 12:10 Dose: 5 mg Metolazone (Zaroxolyn) 5 mg PO DAILY PAT[facility] Stop: 05/10/17 13:14 Last Admin: 03/12/17 09:12 Dose: 5 mg Mirtazapine (Remeron) 15 mg PO HS PATRIA PRN Reason: Protocol Stop: 04/26/17 20:59 Last Admin: 03/11/17 20:33 Dose: 15 mg Miscellaneous (Probiotic Screen) 1 ea PRN PRN PRN Reason: PROTOCOL Stop: 04/21/17 16:25 Miscellaneous (Communication Order) 1 ea MC PRN PATRIA Stop: 05/10/17 13:14 Morphine Sulfate (Morphine) 1 mg IVP Q4HR PRN PRN Reason: Severe Pain Stop: 05/04/17 14:13 Last Admin: 03/12/17 09:45 Dose: 1 mg Nitroglycerin (Nitrostat) 0.4 mg SL Q5MIN PRN PRN Reason: Chest Pain Stop: 04/20/17 12:01 Nystatin (Nystop) 100,000 units TP BID PRN PRN Reason: SKIN EXCORIATIONS Stop: 04/21/17 15:35 Last Admin: 03/08/17 06:00 Dose: 100,000 units Ondansetron HCl (Zofran) 4 mg IV Q6H PRN PRN Reason: Nausea Stop: 04/20/17 03:38 General: No acute distress HEENT: Atraumatic, EOMI Neck: Supple, JVD, +2 carotid pulse wo bruit Cardiovascular: Regular rate, Normal S1, Normal S2 Lungs: Other (coarse rhonchi) Abdomen: Bowel sounds, Soft Extremities: Edema, Other ((+3) bipedal edema) Neurological: Sensation intact Skin: no Rash Psych/Mental Status: Mood NL - Procedures Procedures: Procedures Procedure Code Date INSERT EMERGENCY AIRWAY 59699 02/19/17 INSERTION OF ENDOTRACHEAL AIRWAY INTO [place], VIA OPENING [id number] 02/19/17 RESPIRATORY VENTILATION, GREATER THAN 96 CONSECUTIVE HOURS [id number] 02/19/17 VENT MGMT INPAT INIT DAY 52682 02/19/17 VENT MGMT INPAT SUBQ DAY 39868 02/19/17 Assessment/Plan - Problem List Patient Problems: All Active Problems Acute kidney failure (Acute) 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 Azotemia (Acute) R79.89 Bradycardia (Acute) R00.1 COPD (chronic obstructive pulmonary disease) (Acute) Cardiomegaly (Acute) I51.7 Chest pain (Acute) R07.9 Decubitus ulcer of buttock, 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 - Assessment Assessment: SOHAIL on CKD Acute resp failure on vent 2nd CHF, HAP, possible SOFIE, Exacerbation COPD Shock Sepsis DJD Type 2 DM GERD SOFIE Hyponatremia S/p [place], Appe anasarca Thrombocytopenia Anemia of CD - Plan Plan: Lab - Result Diagrams 03/01/17 09:15 03/01/17 09:15 Current Medications Acetaminophen (Tylenol) 650 mg PO Q4HR PRN PRN Reason: Pain (Mild) Stop: 04/20/17 12:01 Last Admin: 02/21/17 09:54 Dose: 650 mg Acetaminophen/Hydrocodone Bitart ([place] 5mg/325mg) 1 tab PO Q6H PRN PRN Reason: PAIN Stop: 04/20/17 13:24 Albuterol/Ipratropium (Duoneb Neb) 3 ml HHN Q4HRT PRN PRN Reason: Wheezing Stop: 04/27/17 19:59 Last Admin: 02/28/17 03:18 Dose: 3 ml Albuterol/Ipratropium (Duoneb Neb) 3 ml HHN [id number] [facility] Stop: 04/27/17 19:59 Last Admin: 03/01/17 13:49 Dose: 3 ml Aspirin (Ecotrin) 81 mg PO DAILY [facility] Stop: 04/21/17 08:59 Last Admin: 03/01/17 09:30 Dose: Not Given Chlorhexidine Gluconate (Peridex) 15 ml MM 0800,2000 [facility] Stop: 04/28/17 19:59 Last Admin: 03/01/17 08:30 Dose: 15 ml Diltiazem HCl (Cardizem) 5 mg IVP Q4H PRN PRN Reason: HR > 120 Stop: 04/27/17 19:59 Last Admin: 02/27/17 04:59 Dose: 5 mg Docusate Sodium (Colace) 100 mg PO BID [facility] Stop: 04/20/17 16:59 Last Admin: 03/01/17 09:31 Dose: Not Given Fluconazole (Diflucan) 100 mg PO DAILY PATRIA Stop: 03/08/17 08:59 Last Admin: 03/01/17 09:31 Dose: Not Given Furosemide (Lasix) 40 mg PO DAILY [facility] Stop: 04/21/17 08:59 Last Admin: 03/01/17 09:31 Dose: Not Given Pantoprazole Sodium 80 mg/ (Sodium Chloride) 100 mls @ 10 mls/hr IV Q10H [facility] Stop: 04/20/17 08:59 Last Admin: 03/01/17 09:31 Dose: 10 mls/hr Linezolid (Zyvox) 600 mg in 300 mls @ 300 mls/hr IV Q12HR [facility] Stop: 04/22/17 20:59 Last Infusion: 03/01/17 10:00 Dose: Infused Levofloxacin (Levaquin Pb) 250 mg in 50 mls @ 50 mls/hr IV Q24HR [facility] Stop: 04/23/17 20:59 Last Infusion: 02/28/17 21:17 Dose: Infused Phenylephrine HCl 10 mg/ (Sodium Chloride) 250 mls @ 0 mls/hr IV TITR PATRIA; Per Protocol PRN Reason: Protocol Stop: 04/28/17 07:59 Norepinephrine Bitartrate 8 mg (/ Sodium Chloride) 258 mls @ 0 mls/hr IV TITR PATRIA; Per Protocol PRN Reason: Protocol Stop: 04/28/17 09:59 Last Titration: 03/01/17 06:31 Dose: 6 mcg/min, 11.61 mls/hr Meropenem 1 gm/ Dextrose 100 mls @ 100 mls/hr IV Q12H [facility] Stop: 04/28/17 12:29 Last Infusion: 03/01/17 13:00 Dose: Infused Potassium Chloride/Dextrose/Sod Cl (D5-0.9ns W/Kcl 20meq) 1,000 mls @ 75 mls/ hr IV .[id number] [facility] Stop: 04/30/17 14:41 Insulin Aspart (Novolog Insulin Sliding Scale) 0 units SUBQ ACHS [facility]RIA PRN Reason: Protocol Stop: 04/20/17 16:29 Last Admin: 03/01/17 12:01 Dose: 4 units Mirtazapine (Remeron) 15 mg PO HS [facility]RIA PRN Reason: Protocol Stop: 04/26/17 20:59 Last Admin: 02/28/17 21:23 Dose: 15 mg Miscellaneous (Probiotic Screen) 1 ea MC PRN PRN PRN Reason: PROTOCOL Stop: 04/21/17 16:25 Morphine Sulfate (Morphine) 1 mg IVP Q3H PRN PRN Reason: Pain (Moderate) Stop: 04/20/17 01:59 Last Admin: 03/01/17 09:28 Dose: 1 mg Nitroglycerin (Nitrostat) 0.4 mg SL Q5MIN PRN PRN Reason: Chest Pain Stop: 04/20/17 12:01 Nystatin (Nystop) 100,000 units TP BID PRN PRN Reason: SKIN EXCORIATIONS Stop: 04/21/17 15:35 Last Admin: 02/21/17 11:46 Dose: 100,000 units Ondansetron HCl (Zofran) 4 mg IV Q6H PRN PRN Reason: Nausea Stop: 04/20/17 03:38 Spironolactone (Aldactone) 50 mg PO BID [facility]RI[facility] Stop: 04/27/17 08:59 Last Admin: 03/01/17 09:29 Dose: Not Given Lab - Result Diagrams 03/11/17 08:15 03/11/17 08:15 Na up to 137 kidney fnc remain stable w/ BUN/Cr of 49/1.6 UOP improved to nam 2L CXR still w/ CHF, continue Lasix IVP, add metolazone DC spironolactone f/u electorlytes, cbc, CXR DC ivf due to worsening anasarca, chf add albumin initiate NaHC03 Plts down to 26 etio ?sepsis, meds, DIC For transfusion of PRBC, FFP Peptamen @ 20 ml/hr Nutritional Asmnt/Malnutr-PDOC - Dietary Evaluation Malnutrition Findings (Please click <Entered> for more info): Nutritional Asmnt/Malnutrition Start: 02/21/17 18: 20 Text: Status: Complete Freq: Document 02/21/17 18:21 LCHENG (Rec: 02/21/17 18:32 LCHENG [id number]) Nutritional Asmnt/Malnutrition Patient General Information Nutritional Screening High Risk Consult Diagnosis gastric outlet obstruction Pertinent Medical Hx/Surgical Hx HTN, OA, DM, GERD Subjective Information Pt seen sleeping at the time of visit, attempted x 2. Spoke with RN, pt consumed 50% of breakfast and only the soup of lunch today, not much appetite, no complain of N/V. Pt will be NPO from midnight for GI exam tommorrow. Current Diet Order/ Nutrition Support no added salt 4gm, CCHO, no eggs, banana and cereal in morning Pertinent Medications colace, lasix, novolog, levaquin, piperacillin Pertinent Labs 02/20 Na 137, K 4.5, Cl 104, BUN 55, Cr 1.6, Glucose 137, POC 126-199 since admit, Ca 8. 3 Nutritional Hx/Data Height 1.57 m Height (Calculated Centimeters) 157.5 Current Weight (lbs) 97.023 kg Weight (Calculated Kilograms) 97.0 Weight (Calculated Grams) 03458.4 [place] Body Weight 110 % [place] Body Weight 194 Body Mass Index (BMI) 39.1 Weight Status Obese GI Symptoms GI Symptoms None Last BM none Difficult in: None Skin Integrity/Comment: multiple maceration, abrasion to right/left medial thigh Current %PO Poor (25-49%) Estimated Nutritional Goals BEE in Kcals: Adj wt of IBW Calories/Kcals/Kg 27-32 Kcals Calculated Protein: Adj wt of IBW Protein g/k-1.2 Protein Calculated 62-74 Fluid: ml Nutritional Problem 1. Problem Problem inadequate PO intake Etiology poor appetite Signs/Symptoms: PO intake 25-50% Malnutrition Alert Protein-Calorie Malnutrition N/A Is there a minimum of two criteria No selected? Query Text:Check all the applicable criteria. A minimum of two criteria are recommended for diagnosis of either severe or non-severe malnutrition. Intervention/Recommendation Comments 1. Continue with current diet as ordered. 2. Monitor PO intake, GI symptons, wt, labs and skin integrity 3. F/U as high risk in 2-3 days, 02/23-02/24 Expected Outcomes/Goals Expected Outcomes/Goals 1. PO intake to meet at least 75% of nutritional needs. 2. Wt stability, skin to remain intact, labs to improve
--- NOTE | 2017-03-12 15:30 | Progress Notes ---
DATE: 03/12/2017 SUBJECTIVE: The patient was seen in intensive care unit. The patient is currently still orally intubated. The patient is able to respond to tactile stimuli. Otherwise, the patient appears to be in no acute distress. OBJECTIVE: VITAL SIGNS: Temperature 96, heart rate 73, blood pressure 103/49, respirations 13, 100% via 40 FiO2 on ventilator. HEENT: Head is atraumatic and normocephalic. Eyes: Bilateral conjunctivae are clear. Bilateral pupils are equally round and reactive. NECK: Supple. No JVD. CARDIOVASCULAR: S1 and S2, without murmur, sinus rhythm on the monitor. PULMONARY: Fine scattered rhonchi noted. The patient is orally intubated, connected to ventilator. GASTROINTESTINAL: Soft and nontender without guarding. Positive bowel sounds. GENITOURINARY: The patient does have nasogastric tube in place. MUSCULOSKELETAL: No clubbing, no cyanosis. Generalized edema noted. ASSESSMENT: 1. Sepsis. 2. Respiratory failure. 3. Dysphagia. 4. Pneumonia. 5. Urinary tract infection. 6. ___. PLAN: We will continue to keep the patient inpatient in intensive care unit and according to the nurse's reports that the patient has a history of pacemaker insertion done in [facility]. We will try to obtain the records from [facility]. We will also get to monitor the patient's intake and output and also going to continue to monitor the patient's nutritional status. Treatment plan were discussed with the patient's nurse. Treatment plans were discussed with Dr. Yates. JOB# [id number]
--- NOTE | 2017-03-12 17:07 | Infectious Disease Prog Note ---
Infectious Disease Subjective - Review of Systems Service Date: 03/12/17 Subjective: Remains on vent intubated orally. on the ventilator support. Infectious Disease Objective - Results Result Diagrams: 03/12/17 07:00 03/11/17 08:15 Recent Labs: Laboratory Last Values WBC 9.4 Th/cmm (4.8-10.8) 03/12/17 07:00 RBC 2.63 Mil/cmm (3.80-5.20) L 03/12/17 07:00 Hgb 7.9 gm/dL (12-16) L* 03/12/17 07:00 Hct 23.1 % (41.0-60) L 03/12/17 07:00 MCV 87.7 fl (81-100) 03/12/17 07:00 MCH 30.0 pg (27.0-31.0) 03/12/17 07:00 MCHC Differential 34.2 pg (28.0-36.0) 03/12/17 07:00 RDW 14.4 % (11.5-20.0) 03/12/17 07:00 Plt Count 73 Th/cmm (150-400) L D 03/12/17 07:00 MPV 9.2 fl 03/12/17 07:00 Neutrophils % 75.8 % (40.0-80.0) 03/12/17 07:00 Band Neutrophils % 5 % (0-10) 03/06/17 06:00 Lymphocytes % 11.8 % (20.0-50.0) L 03/12/17 07:00 Monocytes % 6.5 % (2.0-10.0) 03/12/17 07:00 Eosinophils % 5.9 % (0.0-5.0) H 03/12/17 07:00 Basophils % 0.0 % (0.0-2.0) 03/12/17 07:00 Neutrophils (Manual) 85 % (40-80) H 03/06/17 06:00 Lymphocytes 4 % (20-50) L 03/06/17 06:00 Monocytes 3 % (2-10) 03/06/17 06:00 Eosinophils 3 % (0-5) 03/06/17 06:00 Metamyelocytes 1 % (0-0) H 02/18/17 23:35 Hypochromia 1+ 02/18/17 23:35 Platelet Estimate DECREASED PLATELETS (NORMAL) 03/06/17 06:00 Platelet Morphology (NORMAL) 03/04/17 08:00 Plt Count 73 Th/cmm (150-750) L 03/12/17 07:00 PT 14.1 SECONDS (9.5-11.5) H 03/12/17 07:00 INR 1.34 (0.5-1.4) 03/12/17 07:00 PTT (Actin FS) 44.3 SECONDS (26.0-38.0) H 03/12/17 07:00 Fibrinogen 243.0 mg/dL (200.0-400.0) 03/12/17 07:00 D-Dimer 1250 ng/mL (100-400) H 03/12/17 07:00 Specimen Source Arterial 03/11/17 09:40 Sample Site Right Radial 03/11/17 09:40 pH 7.29 (7.35-7.45) L 03/11/17 09:40 pCO2 44.0 mmHg (35.0-45.0) 03/11/17 09:40 pO2 66.0 mmHg (80.0-100.0) L 03/11/17 09:40 HCO3 20.6 mEq/L (20.0-26.0) 03/11/17 09:40 Base Excess -5.3 mEq/L (-3.0-3.0) L 03/11/17 09:40 O2 Saturation 90.0 % (92.0-100.0) L 03/11/17 09:40 Jorje Test YES 03/11/17 09:40 Vent Rate 4 03/11/17 09:40 Inspired O2 30 03/11/17 09:40 Tidal Volume 550 03/11/17 09:40 PEEP 5 03/11/17 09:40 Pressure (ins/psv/peep) 15 03/11/17 09:40 Critical Value E.HERNANDEZ 03/11/17 09:40 Sodium 137 mEq/L (136-145) 03/11/17 08:15 Potassium 3.7 mEq/L (3.5-5.1) 03/11/17 08:15 Chloride 110 mEq/L (98-107) H 03/11/17 08:15 Carbon Dioxide 18.7 mEq/L (21.0-31.0) L 03/11/17 08:15 Anion Gap 12.0 (7.0-16.0) 03/11/17 08:15 BUN 49 mg/dL (7-25) H 03/11/17 08:15 Creatinine 1.6 mg/dL (0.6-1.2) H 03/11/17 08:15 Est GFR ( Amer) 41.1 ml/min (>90) 03/11/17 08:15 Est GFR (Non-Af Amer) 34.0 ml/min 03/11/17 08:15 BUN/Creatinine Ratio 30.6 03/11/17 08:15 Glucose 145 mg/dL (70-105) H 03/11/17 08:15 POC Glucose 147 MG/DL (70 - 105) H 03/11/17 04:32 Hemoglobin A1c % 5.8 % (4.0-6.0) 02/22/17 10:38 Whole Bld Lactic Acid 2.40 mmol/L (0.60-1.99) H* 02/27/17 15:04 Calcium 8.0 mg/dL (8.6-10.3) L 03/11/17 08:15 Phosphorus 2.5 mg/dL (2.5-5.0) 03/01/17 09:15 Magnesium 2.1 mg/dL (1.9-2.7) 03/01/17 09:15 Total Bilirubin 0.5 mg/dL (0.3-1.0) 03/11/17 08:15 Direct Bilirubin 0.09 mg/dL (0.0-0.2) 02/18/17 23:35 AST 19 U/L (13-39) 03/11/17 08:15 ALT 5 U/L (7-52) L 03/11/17 08:15 Alkaline Phosphatase 69 U/L (34-104) 03/11/17 08:15 Ammonia 38 umol/L (16-53) 03/01/17 17:28 B-Natriuretic Peptide 158.0 pg/mL (5.0-100.0) H 03/04/17 15:39 Total Protein 5.2 gm/dL (6.0-8.3) L 03/11/17 08:15 Albumin 2.9 gm/dL (3.7-5.3) L 03/11/17 08:15 Globulin 2.3 gm/dL 03/11/17 08:15 Albumin/Globulin Ratio 1.3 (1.0-1.8) 03/11/17 08:15 Amylase 36 U/L (29-103) 02/18/17 23:35 Lipase 10 U/L (11-82) L 02/18/17 23:35 Vitamin B12 860 pg/mL (232-1245) 02/26/17 04:45 Free T4 1.04 ng/dL (0.82-1.77) 02/25/17 04:50 Free T3 0.7 pg/mL (2.0-4.4) L 02/25/17 04:50 TSH 0.84 uIU/ml (0.34-5.60) 02/25/17 04:50 Total Cortisol 12.3 02/24/17 07:50 Urine Source [place] 02/27/17 15:00 Urine Color YELLOW 02/27/17 15:00 Urine Clarity CLOUDY (CLEAR) H 02/27/17 15:00 Urine pH 5.5 (4.6 - 8.0) 02/27/17 15:00 Ur Specific [place] <= 1.005 (1.005-1.030) 02/27/17 15:00 Urine Protein TRACE mg/dL (NEGATIVE) 02/27/17 15:00 Urine Glucose (UA) NEGATIVE mg/dL (NEGATIVE) 02/27/17 15:00 Urine Ketones NEGATIVE mg/dL (NEGATIVE) 02/27/17 15:00 Urine Blood LARGE (NEGATIVE) H 02/27/17 15:00 Urine Nitrate NEGATIVE (NEGATIVE) 02/27/17 15:00 Urine Bilirubin NEGATIVE (NEGATIVE) 02/27/17 15:00 Urine Urobilinogen 0.2 E.U./dL (0.2 - 1.0) 02/27/17 15:00 Ur Leukocyte Esterase LARGE (NEGATIVE) H 02/27/17 15:00 Urine RBC 10-25 /hpf (0-5) H 02/27/17 15:00 Urine WBC >100 /hpf (0-5) H 02/27/17 15:00 Ur Epithelial Cells MODERATE /lpf (FEW) 02/27/17 15:00 Urine Bacteria MODERATE /hpf (NONE SEEN) H 02/27/17 15:00 Urine Yeast MODERATE /hpf (NONE SEEN) H 02/20/17 16:15 Stool Occult Blood NEGATIVE (NEGATIVE) 03/11/17 17:25 Blood Type A POSITIVE 03/12/17 12:33 Antibody Screen NEGATIVE 03/12/17 12:33 Crossmatch See Detail 03/10/17 11:00 - Physical Exam Vitals and I&O: Vital Signs Temp 96.5 F 03/12/17 16:00 Pulse 77 03/12/17 16:00 Resp 20 03/12/17 16:00 BP 115/37 03/12/17 16:00 Pulse Ox 100 03/12/17 16:00 Intake & Output 03/11/17 03/12/17 03/12/17 18:59 06:59 18:59 Intake Total 450.167 600 50 Output Total 220 200 Balance 230.167 400 50 Weight (lbs) 122.924 kg 123.377 kg Intake: Intake, IV Amount 400.167 500 50 Meropenem 1 gm In 200 100 Dextrose 5% 100 ml @ 100 mls/hr IV Q12H [facility] Rx#: [id number] Meropenem 1 gm In Sodium 50 Chloride 0.9% 50 ml @ 100 mls/hr IV Q12H [facility] Rx#: [id number] Pantoprazole 80 mg In 0.167 200 Sodium Chloride 0.9% 100 ml @ 10 mls/hr IV Q10H [facility] Rx#:[id number] metroNIDAZOLE 500mg/NS 200 200 100mL 500 mg In 100 ml @ 100 mls/hr IV Q8HR [facility] Rx #:[id number] Tube Feeding 100 Other 50 Output: Urine 220 200 Other: # Bowel Movements 2 Stool Characteristics Liquid Brown Active Medications: Current Medications Acetaminophen (Tylenol) 650 mg PO Q4HR PRN PRN Reason: Pain (Mild) Stop: 04/20/17 12:01 Last Admin: 03/06/17 03:23 Dose: 650 mg Albuterol/Ipratropium (Duoneb Neb) 3 ml HHN Q4HRT PRN PRN Reason: Wheezing Stop: 04/27/17 19:59 Last Admin: 02/28/17 03:18 Dose: 3 ml Albuterol/Ipratropium (Duoneb Neb) 3 ml HHN [id number] PATRIA Stop: 04/27/17 19:59 Last Admin: 03/12/17 14:07 Dose: 3 ml Chlorhexidine Gluconate (Peridex) 15 ml MM 0800,1999 [facility] Stop: 04/28/17 19:59 Last Admin: 03/12/17 08:15 Dose: 15 ml Diltiazem HCl (Cardizem) 5 mg IVP Q4H PRN PRN Reason: HR > 120 Stop: 04/27/17 19:59 Last Admin: 02/27/17 04:59 Dose: 5 mg Docusate Sodium (Colace) 100 mg PO BID [facility] Stop: 04/20/17 16:59 Last Admin: 03/12/17 09:12 Dose: 100 mg Furosemide (Lasix) 40 mg IVP BID [facility] Stop: 05/08/17 08:59 Last Admin: 03/12/17 09:13 Dose: 40 mg Pantoprazole Sodium 80 mg/ (Sodium Chloride) 100 mls @ 10 mls/hr IV Q10H [facility] Stop: 04/20/17 08:59 Last Admin: 03/12/17 05:50 Dose: 10 mls/hr Phenylephrine HCl 10 mg/ (Sodium Chloride) 250 mls @ 0 mls/hr IV TITR PATRIA; Per Protocol PRN Reason: Protocol Stop: 04/28/17 07:59 Norepinephrine Bitartrate 8 mg (/ Sodium Chloride) 258 mls @ 0 mls/hr IV TITR PATRIA; Per Protocol PRN Reason: Protocol Stop: 04/28/17 09:59 Last Titration: 03/10/17 09:17 Dose: 0 mcg/min, 0 mls/hr Metronidazole (Flagyl) 500 mg in 100 mls @ 100 mls/hr IV Q8HR [facility] Stop: 05/04/17 20:59 Last Admin: 03/12/17 12:10 Dose: 100 mls/hr Meropenem 1 gm/ Sodium (Chloride) 50 mls @ 100 mls/hr IV Q12H [facility] Stop: 05/11/17 10:59 Last Infusion: 03/12/17 11:15 Dose: Infused Insulin Aspart (Novolog Insulin Sliding Scale) 0 units SUBQ Q6H [facility] PRN Reason: Protocol Stop: 05/03/17 00:00 Last Admin: 03/12/17 12:12 Dose: Not Given Metoclopramide HCl (Reglan) 5 mg IVP Q6HR [facility] Stop: 05/05/17 17:59 Last Admin: 03/12/17 12:10 Dose: 5 mg Metolazone (Zaroxolyn) 5 mg PO DAILY PATRIA Stop: 05/10/17 13:14 Last Admin: 03/12/17 09:12 Dose: 5 mg Mirtazapine (Remeron) 15 mg PO HS PATRIA PRN Reason: Protocol Stop: 04/26/17 20:59 Last Admin: 03/11/17 20:33 Dose: 15 mg Miscellaneous (Probiotic Screen) 1 ea PRN PRN PRN Reason: PROTOCOL Stop: 04/21/17 16:25 Miscellaneous (Communication Order) 1 ea PRN PATRIA Stop: 05/10/17 13:14 Morphine Sulfate (Morphine) 1 mg IVP Q4HR PRN PRN Reason: Severe Pain Stop: 05/04/17 14:13 Last Admin: 03/12/17 09:45 Dose: 1 mg Nitroglycerin (Nitrostat) 0.4 mg SL Q5MIN PRN PRN Reason: Chest Pain Stop: 04/20/17 12:01 Nystatin (Nystop) 100,000 units TP BID PRN PRN Reason: SKIN EXCORIATIONS Stop: 04/21/17 15:35 Last Admin: 03/08/17 06:00 Dose: 100,000 units Ondansetron HCl (Zofran) 4 mg IV Q6H PRN PRN Reason: Nausea Stop: 04/20/17 03:38 General: no acute distress, well developed, well nourished HEENT: atraumatic, normocephalic, PERRLA Neck: supple, no thyromegaly Cardiovascular: S1S2, regular Lungs: clear to percussion, crackles, rhonchi Abdomen: soft, no tender, no distended Extremities: edema, no cyanosis, no clubbing Neurological: awake, alert - Procedures Procedures: Procedures Procedure Code Date INSERT EMERGENCY AIRWAY 03548 02/19/17 INSERTION OF ENDOTRACHEAL AIRWAY INTO [place], VIA OPENING [id number] 02/19/17 RESPIRATORY VENTILATION, GREATER THAN 96 CONSECUTIVE HOURS [id number] 02/19/17 VENT MGMT INPAT INIT DAY 27123 02/19/17 VENT MGMT INPAT SUBQ DAY 72120 02/19/17 Infectious Disease Assmt/Plan - Problem List Patient Problems: All Active Problems Acute kidney failure (Acute) 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 Sepsis. 2. Pneumonia. 3. UTI, Candiduria. 4. Renal failure. 5. Hypotension, improving 6. VDRF. 7. Thrombocytopenia. DIC - Plan Plan: continue meropenem. Continue flagyl. Nutritional Asmnt/Malnutr-PDOC - Dietary Evaluation Malnutrition Findings (Please click <Entered> for more info): Nutritional Asmnt/Malnutrition Start: 02/21/17 18: 20 Text: Status: Complete Freq: Document 02/21/17 18:21 LCHENG (Rec: 02/21/17 18:32 LCHENG [email or web address]) Nutritional Asmnt/Malnutrition Patient General Information Nutritional Screening High Risk Consult Diagnosis gastric outlet obstruction Pertinent Medical Hx/Surgical Hx HTN, OA, DM, GERD Subjective Information Pt seen sleeping at the time of visit, attempted x 2. Spoke with RN, pt consumed 50% of breakfast and only the soup of lunch today, not much appetite, no complain of N/V. Pt will be NPO from midnight for GI exam tommorrow. Current Diet Order/ Nutrition Support no added salt 4gm, CCHO, no eggs, banana and cereal in morning Pertinent Medications colace, lasix, novolog, levaquin, piperacillin Pertinent Labs 02/20 Na 137, K 4.5, Cl 104, BUN 55, Cr 1.6, Glucose 137, POC 126-199 since admit, Ca 8. 3 Nutritional Hx/Data Height 1.57 m Height (Calculated Centimeters) 157.5 Current Weight (lbs) 97.023 kg Weight (Calculated Kilograms) 97.0 Weight (Calculated Grams) 74629.4 [place] Body Weight 110 % [place] Body Weight 194 Body Mass Index (BMI) 39.1 Weight Status Obese GI Symptoms GI Symptoms None Last BM none Difficult in: None Skin Integrity/Comment: multiple maceration, abrasion to right/left medial thigh Current %PO Poor (25-49%) Estimated Nutritional Goals BEE in Kcals: Adj wt of IBW Calories/Kcals/Kg 27-32 Kcals Calculated Protein: Adj wt of IBW Protein g/k-1.2 Protein Calculated 62-74 Fluid: ml Nutritional Problem 1. Problem Problem inadequate PO intake Etiology poor appetite Signs/Symptoms: PO intake 25-50% Malnutrition Alert Protein-Calorie Malnutrition N/A Is there a minimum of two criteria No selected? Query Text:Check all the applicable criteria. A minimum of two criteria are recommended for diagnosis of either severe or non-severe malnutrition. Intervention/Recommendation Comments 1. Continue with current diet as ordered. 2. Monitor PO intake, GI symptons, wt, labs and skin integrity 3. F/U as high risk in 2-3 days, 02/23-02/24 Expected Outcomes/Goals Expected Outcomes/Goals 1. PO intake to meet at least 75% of nutritional needs. 2. Wt stability, skin to remain intact, labs to improve
[2017-03-13] MEDS: INSULIN ASPART SLIDING SCALE 100 UNITS/ML UNIT SUBQ SCH ×4 (00:10→17:56)
[2017-03-13] MEDS: Pantoprazole 80 MG in Sodium Chloride 0.9% 100 ML IV SCH ×3 (00:36→21:15)
[2017-03-13] MEDS: Metoclopramide 5 mg/mL 2mL Vial IVP SCH ×4 (01:12→17:46)
[2017-03-13] MEDS: Morphine Sulfate 2 mg/mL 1mL Syr IVP PRN ×2 (04:55→09:10)
[2017-03-13] MEDS: Albuterol/Ipratropium Neb 3 ML AERS HHN SCH ×3 (06:49→19:41)
[2017-03-13 07:45] LABS: % BASOPHILS 0.3 % (0.0-2.0); % EOSINOPHILS 7.1 % (0.0-5.0); % MONOCYTES 5.8 % (2.0-10.0); % NEUTROPHILS 77.8 % (40.0-80.0); EOSINOPHILE ABSOLUTE 0.8 Th/cmm (0.1-0.4); HEMATOCRIT 21.2 % (41.0-60); MEAN CELL VOLUME 87.8 fl (81-100); MEAN CORPUSCULAR HEMOGLOBIN 29.7 pg (27.0-31.0); MEAN CORPUSCULAR HGB CONC 33.8 pg (28.0-36.0); MEAN PLATELET VOLUME 9.1 fl; MONOCYTE ABSOLUTE 0.6 Th/cmm (0.3-1.0); NEUTROPHILE ABSOLUTE 8.7 Th/cmm (1.8-8.0); PLATELET COUNT 86 Th/cmm (150-400); RED BLOOD COUNT 2.42 Mil/cmm (3.80-5.20); RED CELL DISTRIBUTION WIDTH 14.2 % (11.5-20.0); WHITE BLOOD COUNT 11.1 Th/cmm (4.8-10.8)
[2017-03-13 08:03] LABS: CARBON DIOXIDE 18.5 mEq/L (21.0-31.0); CREATININE - SERUM 1.6 mg/dL (0.6-1.2); GFR AFRICAN-AMERICAN 41.1 ml/min (>90); POTASSIUM SERUM 3.5 mEq/L (3.5-5.1)
[2017-03-13 08:33] LABS: INR 1.31 (0.5-1.4); PROTHROMBIN TIME (TEST) 13.8 SECONDS (9.5-11.5)
[2017-03-13] MEDS: Chlorhexidine Gluconate 0.12% 15mL Mouthwash MM SCH ×2 (08:35→20:45)
[2017-03-13 08:42] LABS: HEMOGLOBIN 7.2 gm/dL (12-16)
--- NOTE | 2017-03-13 09:13 | General Progress Note ---
Subjective - Review of Systems Service Date: 03/13/17 Events since last encounter: platelets 86,000, Hb 7.2 to have 2 PRBC today, platelets in AM before surgery patient and family agree to tracheostomy Objective - Results Result Diagrams: 03/13/17 06:10 03/13/17 06:10 Recent Labs: Laboratory Last Values WBC 11.1 Th/cmm (4.8-10.8) H 03/13/17 06:10 RBC 2.42 Mil/cmm (3.80-5.20) L 03/13/17 06:10 Hgb 7.2 gm/dL (12-16) L* 03/13/17 06:10 Hct 21.2 % (41.0-60) L 03/13/17 06:10 MCV 87.8 fl (81-100) 03/13/17 06:10 MCH 29.7 pg (27.0-31.0) 03/13/17 06:10 MCHC Differential 33.8 pg (28.0-36.0) 03/13/17 06:10 RDW 14.2 % (11.5-20.0) 03/13/17 06:10 Plt Count 86 Th/cmm (150-400) L 03/13/17 06:10 MPV 9.1 fl 03/13/17 06:10 Neutrophils % 77.8 % (40.0-80.0) 03/13/17 06:10 Band Neutrophils % 5 % (0-10) 03/06/17 06:00 Lymphocytes % 9.0 % (20.0-50.0) L 03/13/17 06:10 Monocytes % 5.8 % (2.0-10.0) 03/13/17 06:10 Eosinophils % 7.1 % (0.0-5.0) H 03/13/17 06:10 Basophils % 0.3 % (0.0-2.0) 03/13/17 06:10 Neutrophils (Manual) 85 % (40-80) H 03/06/17 06:00 Lymphocytes 4 % (20-50) L 03/06/17 06:00 Monocytes 3 % (2-10) 03/06/17 06:00 Eosinophils 3 % (0-5) 03/06/17 06:00 Metamyelocytes 1 % (0-0) H 02/18/17 23:35 Hypochromia 1+ 02/18/17 23:35 Platelet Estimate DECREASED PLATELETS (NORMAL) 03/06/17 06:00 Platelet Morphology (NORMAL) 03/04/17 08:00 Plt Count 73 Th/cmm (150-750) L 03/12/17 07:00 PT 13.8 SECONDS (9.5-11.5) H 03/13/17 06:10 INR 1.31 (0.5-1.4) 03/13/17 06:10 PTT (Actin FS) 37.5 SECONDS (26.0-38.0) 03/13/17 06:10 Fibrinogen 243.0 mg/dL (200.0-400.0) 03/12/17 07:00 D-Dimer 1250 ng/mL (100-400) H 03/12/17 07:00 Specimen Source Arterial 03/11/17 09:40 Sample Site Right Radial 03/11/17 09:40 pH 7.29 (7.35-7.45) L 03/11/17 09:40 pCO2 44.0 mmHg (35.0-45.0) 03/11/17 09:40 pO2 66.0 mmHg (80.0-100.0) L 03/11/17 09:40 HCO3 20.6 mEq/L (20.0-26.0) 03/11/17 09:40 Base Excess -5.3 mEq/L (-3.0-3.0) L 03/11/17 09:40 O2 Saturation 90.0 % (92.0-100.0) L 03/11/17 09:40 Jorje Test YES 03/11/17 09:40 Vent Rate 4 03/11/17 09:40 Inspired O2 30 03/11/17 09:40 Tidal Volume 550 03/11/17 09:40 PEEP 5 03/11/17 09:40 Pressure (ins/psv/peep) 15 03/11/17 09:40 Critical Value E.HERNANDEZ 03/11/17 09:40 Sodium 140 mEq/L (136-145) 03/13/17 06:10 Potassium 3.5 mEq/L (3.5-5.1) 03/13/17 06:10 Chloride 111 mEq/L (98-107) H 03/13/17 06:10 Carbon Dioxide 18.5 mEq/L (21.0-31.0) L 03/13/17 06:10 Anion Gap 14.0 (7.0-16.0) 03/13/17 06:10 BUN 46 mg/dL (7-25) H 03/13/17 06:10 Creatinine 1.6 mg/dL (0.6-1.2) H 03/13/17 06:10 Est GFR ( Amer) 41.1 ml/min (>90) 03/13/17 06:10 Est GFR (Non-Af Amer) 34.0 ml/min 03/13/17 06:10 BUN/Creatinine Ratio 28.8 03/13/17 06:10 Glucose 109 mg/dL (70-105) H 03/13/17 06:10 POC Glucose 147 MG/DL (70 - 105) H 03/11/17 04:32 Hemoglobin A1c % 5.8 % (4.0-6.0) 02/22/17 10:38 Whole Bld Lactic Acid 2.40 mmol/L (0.60-1.99) H* 02/27/17 15:04 Calcium 8.0 mg/dL (8.6-10.3) L 03/13/17 06:10 Phosphorus 2.5 mg/dL (2.5-5.0) 03/01/17 09:15 Magnesium 2.1 mg/dL (1.9-2.7) 03/01/17 09:15 Total Bilirubin 0.5 mg/dL (0.3-1.0) 03/11/17 08:15 Direct Bilirubin 0.09 mg/dL (0.0-0.2) 02/18/17 23:35 AST 19 U/L (13-39) 03/11/17 08:15 ALT 5 U/L (7-52) L 03/11/17 08:15 Alkaline Phosphatase 69 U/L (34-104) 03/11/17 08:15 Ammonia 38 umol/L (16-53) 03/01/17 17:28 B-Natriuretic Peptide 158.0 pg/mL (5.0-100.0) H 03/04/17 15:39 Total Protein 5.2 gm/dL (6.0-8.3) L 03/11/17 08:15 Albumin 2.9 gm/dL (3.7-5.3) L 03/11/17 08:15 Globulin 2.3 gm/dL 03/11/17 08:15 Albumin/Globulin Ratio 1.3 (1.0-1.8) 03/11/17 08:15 Amylase 36 U/L (29-103) 02/18/17 23:35 Lipase 10 U/L (11-82) L 02/18/17 23:35 Vitamin B12 860 pg/mL (232-1245) 02/26/17 04:45 Free T4 1.04 ng/dL (0.82-1.77) 02/25/17 04:50 Free T3 0.7 pg/mL (2.0-4.4) L 02/25/17 04:50 TSH 0.84 uIU/ml (0.34-5.60) 02/25/17 04:50 Total Cortisol 12.3 02/24/17 07:50 Urine Source [place] 02/27/17 15:00 Urine Color YELLOW 02/27/17 15:00 Urine Clarity CLOUDY (CLEAR) H 02/27/17 15:00 Urine pH 5.5 (4.6 - 8.0) 02/27/17 15:00 Ur Specific [place] <= 1.005 (1.005-1.030) 02/27/17 15:00 Urine Protein TRACE mg/dL (NEGATIVE) 02/27/17 15:00 Urine Glucose (UA) NEGATIVE mg/dL (NEGATIVE) 02/27/17 15:00 Urine Ketones NEGATIVE mg/dL (NEGATIVE) 02/27/17 15:00 Urine Blood LARGE (NEGATIVE) H 02/27/17 15:00 Urine Nitrate NEGATIVE (NEGATIVE) 02/27/17 15:00 Urine Bilirubin NEGATIVE (NEGATIVE) 02/27/17 15:00 Urine Urobilinogen 0.2 E.U./dL (0.2 - 1.0) 02/27/17 15:00 Ur Leukocyte Esterase LARGE (NEGATIVE) H 02/27/17 15:00 Urine RBC 10-25 /hpf (0-5) H 02/27/17 15:00 Urine WBC >100 /hpf (0-5) H 02/27/17 15:00 Ur Epithelial Cells MODERATE /lpf (FEW) 02/27/17 15:00 Urine Bacteria MODERATE /hpf (NONE SEEN) H 02/27/17 15:00 Urine Yeast MODERATE /hpf (NONE SEEN) H 02/20/17 16:15 Stool Occult Blood NEGATIVE (NEGATIVE) 03/11/17 17:25 Blood Type A POSITIVE 03/12/17 12:33 Antibody Screen NEGATIVE 03/12/17 12:33 Crossmatch See Detail 03/10/17 11:00 - Physical Exam Vitals and I&O: Vital Signs Temp 97 F 03/13/17 04:00 Pulse 82 03/13/17 07:00 Resp 12 03/13/17 07:00 BP 104/50 03/13/17 07:00 Pulse Ox 100 03/13/17 07:00 Intake & Output 03/12/17 03/13/17 03/13/17 18:59 06:59 18:59 Intake Total 1070 359.500 Output Total 330 450 Balance 740 -90.500 Weight (lbs) 124.369 kg 124.738 kg Intake: Intake, IV Amount 150 119.500 Meropenem 1 gm In Sodium 50 50 Chloride 0.9% 50 ml @ 100 mls/hr IV Q12H [facility] Rx#: [id number] Pantoprazole 80 mg In 100 69.500 Sodium Chloride 0.9% 100 ml @ 10 mls/hr IV Q10H [facility] Rx#:[id number] Tube Feeding 120 240 Blood Product 600 Other 200 Output: Urine 330 450 Other: # Bowel Movements 0 1 Active Medications: Current Medications Acetaminophen (Tylenol) 650 mg PO Q4HR PRN PRN Reason: Pain (Mild) Stop: 04/20/17 12:01 Last Admin: 03/06/17 03:23 Dose: 650 mg Albuterol/Ipratropium (Duoneb Neb) 3 ml HHN Q4HRT PRN PRN Reason: Wheezing Stop: 04/27/17 19:59 Last Admin: 02/28/17 03:18 Dose: 3 ml Albuterol/Ipratropium (Duoneb Neb) 3 ml HHN [id number] [facility] Stop: 04/27/17 19:59 Last Admin: 03/13/17 06:49 Dose: 3 ml Chlorhexidine Gluconate (Peridex) 15 ml MM 0800,2000 [facility] Stop: 04/28/17 19:59 Last Admin: 03/12/17 20:38 Dose: 15 ml Diltiazem HCl (Cardizem) 5 mg IVP Q4H PRN PRN Reason: HR > 120 Stop: 04/27/17 19:59 Last Admin: 02/27/17 04:59 Dose: 5 mg Docusate Sodium (Colace) 100 mg PO BID [facility] Stop: 04/20/17 16:59 Last Admin: 03/12/17 17:31 Dose: 100 mg Furosemide (Lasix) 40 mg IVP BID [facility] Stop: 05/08/17 08:59 Last Admin: 03/12/17 17:31 Dose: 40 mg Pantoprazole Sodium 80 mg/ (Sodium Chloride) 100 mls @ 10 mls/hr IV Q10H [facility] Stop: 04/20/17 08:59 Last Infusion: 03/13/17 00:37 Dose: 10 mls/hr Phenylephrine HCl 10 mg/ (Sodium Chloride) 250 mls @ 0 mls/hr IV TITR PATRIA; Per Protocol PRN Reason: Protocol Stop: 04/28/17 07:59 Norepinephrine Bitartrate 8 mg (/ Sodium Chloride) 258 mls @ 0 mls/hr IV TITR PATRIA; Per Protocol PRN Reason: Protocol Stop: 04/28/17 09:59 Last Titration: 03/10/17 09:17 Dose: 0 mcg/min, 0 mls/hr Meropenem 1 gm/ Sodium (Chloride) 50 mls @ 100 mls/hr IV Q12H [facility] Stop: 05/11/17 10:59 Last Infusion: 03/13/17 06:45 Dose: Infused Insulin Aspart (Novolog Insulin Sliding Scale) 0 units SUBQ Q6H PATRIA PRN Reason: Protocol Stop: 05/03/17 00:00 Last Admin: 03/13/17 06:43 Dose: Not Given Metoclopramide HCl (Reglan) 5 mg IVP Q6HR [facility] Stop: 05/05/17 17:59 Last Admin: 03/13/17 05:14 Dose: Not Given Metolazone (Zaroxolyn) 5 mg PO DAILY [facility] Stop: 05/10/17 13:14 Last Admin: 03/12/17 09:12 Dose: 5 mg Mirtazapine (Remeron) 15 mg PO HS PATRIA PRN Reason: Protocol Stop: 04/26/17 20:59 Last Admin: 03/12/17 20:34 Dose: 15 mg Miscellaneous (Probiotic Screen) 1 ea MC PRN PRN PRN Reason: PROTOCOL Stop: 04/21/17 16:25 Miscellaneous (Communication Order) 1 ea MC PRN PATRIA Stop: 05/10/17 13:14 Morphine Sulfate (Morphine) 1 mg IVP Q4HR PRN PRN Reason: Severe Pain Stop: 05/04/17 14:13 Last Admin: 03/13/17 04:55 Dose: 1 mg Nitroglycerin (Nitrostat) 0.4 mg SL Q5MIN PRN PRN Reason: Chest Pain Stop: 04/20/17 12:01 Nystatin (Nystop) 100,000 units TP BID PRN PRN Reason: SKIN EXCORIATIONS Stop: 04/21/17 15:35 Last Admin: 03/08/17 06:00 Dose: 100,000 units Ondansetron HCl (Zofran) 4 mg IV Q6H PRN PRN Reason: Nausea Stop: 04/20/17 03:38 General: No acute distress HEENT: Atraumatic, EOMI Neck: Supple, JVD, +2 carotid pulse wo bruit Cardiovascular: Regular rate, Normal S1, Normal S2 Lungs: Other (coarse rhonchi) Abdomen: Bowel sounds, Soft Extremities: Edema, Other ((+3) bipedal edema) Neurological: Sensation intact Skin: no Rash Psych/Mental Status: Mood NL - Procedures Procedures: Procedures Procedure Code Date INSERT EMERGENCY AIRWAY 20017 02/19/17 INSERTION OF ENDOTRACHEAL AIRWAY INTO [place]HEA, VIA OPENING [id number] 02/19/17 RESPIRATORY VENTILATION, GREATER THAN 96 CONSECUTIVE HOURS [id number] 02/19/17 VENT MGMT INPAT INIT DAY 02/19/17 VENT MGMT INPAT SUBQ DAY 08231 02/19/17 Assessment/Plan - Problem List Patient Problems: All Active Problems Acute kidney failure (Acute) 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 Azotemia (Acute) R79.89 Bradycardia (Acute) R00.1 COPD (chronic obstructive pulmonary disease) (Acute) Cardiomegaly (Acute) I51.7 Chest pain (Acute) R07.9 Decubitus ulcer of buttock, 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 Nutritional Asmnt/Malnutr-PDOC - Dietary Evaluation Malnutrition Findings (Please click <Entered> for more info): Nutritional Asmnt/Malnutrition Start: 02/21/17 18: 20 Text: Status: Complete Freq: Document 02/21/17 18:21 HENG (Rec: 02/21/17 18:32 LCHEN [email or web address]) Nutritional Asmnt/Malnutrition Patient General Information Nutritional Screening High Risk Consult Diagnosis gastric outlet obstruction Pertinent Medical Hx/Surgical Hx HTN, OA, DM, GERD Subjective Information Pt seen sleeping at the time of visit, attempted x 2. Spoke with RN, pt consumed 50% of breakfast and only the soup of lunch today, not much appetite, no complain of N/V. Pt will be NPO from midnight for GI exam tommorrow. Current Diet Order/ Nutrition Support no added salt 4gm, CCHO, no eggs, banana and cereal in morning Pertinent Medications colace, lasix, novolog, levaquin, piperacillin Pertinent Labs 02/20 Na 137, K 4.5, Cl 104, BUN 55, Cr 1.6, Glucose 137, POC 126-199 since admit, Ca 8. 3 Nutritional Hx/Data Height 1.57 m Height (Calculated Centimeters) 157.5 Current Weight (lbs) 97.023 kg Weight (Calculated Kilograms) 97.0 Weight (Calculated Grams) 31023.4 [place] Body Weight 110 % [place] Body Weight 194 Body Mass Index (BMI) 39.1 Weight Status Obese GI Symptoms GI Symptoms None Last BM none Difficult in: None Skin Integrity/Comment: multiple maceration, abrasion to right/left medial thigh Current %PO Poor (25-49%) Estimated Nutritional Goals BEE in Kcals: Adj wt of IBW Calories/Kcals/Kg 27-32 Kcals Calculated Protein: Adj wt of IBW Protein g/k-1.2 Protein Calculated 62-74 Fluid: ml Nutritional Problem 1. Problem Problem inadequate PO intake Etiology poor appetite Signs/Symptoms: PO intake 25-50% Malnutrition Alert Protein-Calorie Malnutrition N/A Is there a minimum of two criteria No selected? Query Text:Check all the applicable criteria. A minimum of two criteria are recommended for diagnosis of either severe or non-severe malnutrition. Intervention/Recommendation Comments 1. Continue with current diet as ordered. 2. Monitor PO intake, GI symptons, wt, labs and skin integrity 3. F/U as high risk in 2-3 days, 02/23-02/24 Expected Outcomes/Goals Expected Outcomes/Goals 1. PO intake to meet at least 75% of nutritional needs. 2. Wt stability, skin to remain intact, labs to improve
[2017-03-13] MEDS: Metolazone 5 MG TAB PO SCH (09:30)
[2017-03-13] MEDS: Multivitamin w/ Minerals Tab PO SCH (09:30)
--- NOTE | 2017-03-13 09:45 | Diagnostic Imaging Report ---
Portable chest x-ray HISTORY: Shortness of breath Compared to prior exam of March 11, 2017, there is persistent marked cardiomegaly. Pulmonary vascular redistribution consistent cardiac compensation. Hazy interstitial lung markings. Evidence of a small right pleural effusion. The endotracheal tube tip is approximately 3.0 cm above the abhishek. IMPRESSION: 1. Little change in the cardiopulmonary status with marked cardiomegaly and changes consistent with congestive heart failure.
--- NOTE | 2017-03-13 11:13 | General Progress Note ---
Subjective - Review of Systems Events since last encounter: agreed on tracheostomy patient in no acute distress Objective - Results Result Diagrams: 03/13/17 06:10 03/13/17 06:10 Recent Labs: Laboratory Last Values WBC 11.1 Th/cmm (4.8-10.8) H 03/13/17 06:10 RBC 2.42 Mil/cmm (3.80-5.20) L 03/13/17 06:10 Hgb 7.2 gm/dL (12-16) L* 03/13/17 06:10 Hct 21.2 % (41.0-60) L 03/13/17 06:10 MCV 87.8 fl (81-100) 03/13/17 06:10 MCH 29.7 pg (27.0-31.0) 03/13/17 06:10 MCHC Differential 33.8 pg (28.0-36.0) 03/13/17 06:10 RDW 14.2 % (11.5-20.0) 03/13/17 06:10 Plt Count 86 Th/cmm (150-400) L 03/13/17 06:10 MPV 9.1 fl 03/13/17 06:10 Neutrophils % 77.8 % (40.0-80.0) 03/13/17 06:10 Band Neutrophils % 5 % (0-10) 03/06/17 06:00 Lymphocytes % 9.0 % (20.0-50.0) L 03/13/17 06:10 Monocytes % 5.8 % (2.0-10.0) 03/13/17 06:10 Eosinophils % 7.1 % (0.0-5.0) H 03/13/17 06:10 Basophils % 0.3 % (0.0-2.0) 03/13/17 06:10 Neutrophils (Manual) 85 % (40-80) H 03/06/17 06:00 Lymphocytes 4 % (20-50) L 03/06/17 06:00 Monocytes 3 % (2-10) 03/06/17 06:00 Eosinophils 3 % (0-5) 03/06/17 06:00 Metamyelocytes 1 % (0-0) H 02/18/17 23:35 Hypochromia 1+ 02/18/17 23:35 Platelet Estimate DECREASED PLATELETS (NORMAL) 03/06/17 06:00 Platelet Morphology (NORMAL) 03/04/17 08:00 Plt Count 73 Th/cmm (150-750) L 03/12/17 07:00 PT 13.8 SECONDS (9.5-11.5) H 03/13/17 06:10 INR 1.31 (0.5-1.4) 03/13/17 06:10 PTT (Actin FS) 37.5 SECONDS (26.0-38.0) 03/13/17 06:10 Fibrinogen 246.0 mg/dL (200.0-400.0) 03/13/17 06:10 D-Dimer 1250 ng/mL (100-400) H 03/12/17 07:00 Specimen Source Arterial 03/11/17 09:40 Sample Site Right Radial 03/11/17 09:40 pH 7.29 (7.35-7.45) L 03/11/17 09:40 pCO2 44.0 mmHg (35.0-45.0) 03/11/17 09:40 pO2 66.0 mmHg (80.0-100.0) L 03/11/17 09:40 HCO3 20.6 mEq/L (20.0-26.0) 03/11/17 09:40 Base Excess -5.3 mEq/L (-3.0-3.0) L 03/11/17 09:40 O2 Saturation 90.0 % (92.0-100.0) L 03/11/17 09:40 Jorje Test YES 03/11/17 09:40 Vent Rate 4 03/11/17 09:40 Inspired O2 30 03/11/17 09:40 Tidal Volume 550 03/11/17 09:40 PEEP 5 03/11/17 09:40 Pressure (ins/psv/peep) 15 03/11/17 09:40 Critical Value E.HERNANDEZ 03/11/17 09:40 Sodium 140 mEq/L (136-145) 03/13/17 06:10 Potassium 3.5 mEq/L (3.5-5.1) 03/13/17 06:10 Chloride 111 mEq/L (98-107) H 03/13/17 06:10 Carbon Dioxide 18.5 mEq/L (21.0-31.0) L 03/13/17 06:10 Anion Gap 14.0 (7.0-16.0) 03/13/17 06:10 BUN 46 mg/dL (7-25) H 03/13/17 06:10 Creatinine 1.6 mg/dL (0.6-1.2) H 03/13/17 06:10 Est GFR ( Amer) 41.1 ml/min (>90) 03/13/17 06:10 Est GFR (Non-Af Amer) 34.0 ml/min 03/13/17 06:10 BUN/Creatinine Ratio 28.8 03/13/17 06:10 Glucose 109 mg/dL (70-105) H 03/13/17 06:10 POC Glucose 147 MG/DL (70 - 105) H 03/11/17 04:32 Hemoglobin A1c % 5.8 % (4.0-6.0) 02/22/17 10:38 Whole Bld Lactic Acid 2.40 mmol/L (0.60-1.99) H* 02/27/17 15:04 Calcium 8.0 mg/dL (8.6-10.3) L 03/13/17 06:10 Phosphorus 2.5 mg/dL (2.5-5.0) 03/01/17 09:15 Magnesium 2.1 mg/dL (1.9-2.7) 03/01/17 09:15 Total Bilirubin 0.5 mg/dL (0.3-1.0) 03/11/17 08:15 Direct Bilirubin 0.09 mg/dL (0.0-0.2) 02/18/17 23:35 AST 19 U/L (13-39) 03/11/17 08:15 ALT 5 U/L (7-52) L 03/11/17 08:15 Alkaline Phosphatase 69 U/L (34-104) 03/11/17 08:15 Ammonia 38 umol/L (16-53) 03/01/17 17:28 B-Natriuretic Peptide 158.0 pg/mL (5.0-100.0) H 03/04/17 15:39 Total Protein 5.2 gm/dL (6.0-8.3) L 03/11/17 08:15 Albumin 2.9 gm/dL (3.7-5.3) L 03/11/17 08:15 Globulin 2.3 gm/dL 03/11/17 08:15 Albumin/Globulin Ratio 1.3 (1.0-1.8) 03/11/17 08:15 Amylase 36 U/L (29-103) 02/18/17 23:35 Lipase 10 U/L (11-82) L 02/18/17 23:35 Vitamin B12 860 pg/mL (232-1245) 02/26/17 04:45 Free T4 1.04 ng/dL (0.82-1.77) 02/25/17 04:50 Free T3 0.7 pg/mL (2.0-4.4) L 02/25/17 04:50 TSH 0.84 uIU/ml (0.34-5.60) 02/25/17 04:50 Total Cortisol 12.3 02/24/17 07:50 Urine Source [place] 02/27/17 15:00 Urine Color YELLOW 02/27/17 15:00 Urine Clarity CLOUDY (CLEAR) H 02/27/17 15:00 Urine pH 5.5 (4.6 - 8.0) 02/27/17 15:00 Ur Specific [place] <= 1.005 (1.005-1.030) 02/27/17 15:00 Urine Protein TRACE mg/dL (NEGATIVE) 02/27/17 15:00 Urine Glucose (UA) NEGATIVE mg/dL (NEGATIVE) 02/27/17 15:00 Urine Ketones NEGATIVE mg/dL (NEGATIVE) 02/27/17 15:00 Urine Blood LARGE (NEGATIVE) H 02/27/17 15:00 Urine Nitrate NEGATIVE (NEGATIVE) 02/27/17 15:00 Urine Bilirubin NEGATIVE (NEGATIVE) 02/27/17 15:00 Urine Urobilinogen 0.2 E.U./dL (0.2 - 1.0) 02/27/17 15:00 Ur Leukocyte Esterase LARGE (NEGATIVE) H 02/27/17 15:00 Urine RBC 10-25 /hpf (0-5) H 02/27/17 15:00 Urine WBC >100 /hpf (0-5) H 02/27/17 15:00 Ur Epithelial Cells MODERATE /lpf (FEW) 02/27/17 15:00 Urine Bacteria MODERATE /hpf (NONE SEEN) H 02/27/17 15:00 Urine Yeast MODERATE /hpf (NONE SEEN) H 02/20/17 16:15 Stool Occult Blood NEGATIVE (NEGATIVE) 03/11/17 17:25 Blood Type A POSITIVE 03/12/17 12:33 Antibody Screen NEGATIVE 03/12/17 12:33 Crossmatch See Detail 03/12/17 12:33 - Physical Exam Vitals and I&O: Vital Signs Temp 97 F 03/13/17 04:00 Pulse 82 03/13/17 07:00 Resp 12 03/13/17 07:00 BP 111/54 03/13/17 09:30 Pulse Ox 100 03/13/17 08:00 Intake & Output 03/12/17 03/13/17 03/13/17 18:59 06:59 18:59 Intake Total 1070 359.500 Output Total 330 450 Balance 740 -90.500 Weight (lbs) 124.369 kg 124.738 kg Intake: Intake, IV Amount 150 119.500 Meropenem 1 gm In Sodium 50 50 Chloride 0.9% 50 ml @ 100 mls/hr IV Q12H [facility] Rx#: [id number] Pantoprazole 80 mg In 100 69.500 Sodium Chloride 0.9% 100 ml @ 10 mls/hr IV Q10H [facility] Rx#:[id number] Tube Feeding 120 240 Blood Product 600 Other 200 Output: Urine 330 450 Other: # Bowel Movements 0 1 Stool Characteristics Soft Liquid Brown Active Medications: Current Medications Acetaminophen (Tylenol) 650 mg PO Q4HR PRN PRN Reason: Pain (Mild) Stop: 04/20/17 12:01 Last Admin: 03/06/17 03:23 Dose: 650 mg Albuterol/Ipratropium (Duoneb Neb) 3 ml HHN Q4HRT PRN PRN Reason: Wheezing Stop: 04/27/17 19:59 Last Admin: 02/28/17 03:18 Dose: 3 ml Albuterol/Ipratropium (Duoneb Neb) 3 ml HHN [id number] [facility] Stop: 04/27/17 19:59 Last Admin: 03/13/17 06:49 Dose: 3 ml Chlorhexidine Gluconate (Peridex) 15 ml MM 0800,2000 [facility] Stop: 04/28/17 19:59 Last Admin: 03/13/17 08:35 Dose: 15 ml Diltiazem HCl (Cardizem) 5 mg IVP Q4H PRN PRN Reason: HR > 120 Stop: 04/27/17 19:59 Last Admin: 02/27/17 04:59 Dose: 5 mg Docusate Sodium (Colace) 100 mg PO BID [facility] Stop: 04/20/17 16:59 Last Admin: 03/13/17 09:30 Dose: 100 mg Furosemide (Lasix) 40 mg IVP BID [facility] Stop: 05/08/17 08:59 Last Admin: 03/13/17 09:30 Dose: 40 mg Pantoprazole Sodium 80 mg/ (Sodium Chloride) 100 mls @ 10 mls/hr IV Q10H [facility] Stop: 04/20/17 08:59 Last Infusion: 03/13/17 00:37 Dose: 10 mls/hr Phenylephrine HCl 10 mg/ (Sodium Chloride) 250 mls @ 0 mls/hr IV TITR [facility]; Per Protocol PRN Reason: Protocol Stop: 04/28/17 07:59 Norepinephrine Bitartrate 8 mg (/ Sodium Chloride) 258 mls @ 0 mls/hr IV TITR [facility]; Per Protocol PRN Reason: Protocol Stop: 04/28/17 09:59 Last Titration: 03/10/17 09:17 Dose: 0 mcg/min, 0 mls/hr Meropenem 1 gm/ Sodium (Chloride) 50 mls @ 100 mls/hr IV Q12H [facility] Stop: 05/11/17 10:59 Last Infusion: 03/13/17 06:45 Dose: Infused Insulin Aspart (Novolog Insulin Sliding Scale) 0 units SUBQ Q6H [facility] PRN Reason: Protocol Stop: 05/03/17 00:00 Last Admin: 03/13/17 06:43 Dose: Not Given Metoclopramide HCl (Reglan) 5 mg IVP Q6HR [facility] Stop: 05/05/17 17:59 Last Admin: 03/13/17 05:14 Dose: Not Given Metolazone (Zaroxolyn) 5 mg PO DAILY [facility] Stop: 05/10/17 13:14 Last Admin: 03/13/17 09:30 Dose: 5 mg Mirtazapine (Remeron) 15 mg PO HS [facility] PRN Reason: Protocol Stop: 04/26/17 20:59 Last Admin: 03/12/17 20:34 Dose: 15 mg Miscellaneous (Probiotic Screen) 1 ea MC PRN PRN PRN Reason: PROTOCOL Stop: 04/21/17 16:25 Miscellaneous (Communication Order) 1 ea MC PRN [facility] Stop: 05/10/17 13:14 Morphine Sulfate (Morphine) 1 mg IVP Q4HR PRN PRN Reason: Severe Pain Stop: 05/04/17 14:13 Last Admin: 03/13/17 09:10 Dose: 1 mg Nitroglycerin (Nitrostat) 0.4 mg SL Q5MIN PRN PRN Reason: Chest Pain Stop: 04/20/17 12:01 Nystatin (Nystop) 100,000 units TP BID PRN PRN Reason: SKIN EXCORIATIONS Stop: 04/21/17 15:35 Last Admin: 03/08/17 06:00 Dose: 100,000 units Ondansetron HCl (Zofran) 4 mg IV Q6H PRN PRN Reason: Nausea Stop: 04/20/17 03:38 General: No acute distress HEENT: Atraumatic, EOMI Neck: Supple, JVD, +2 carotid pulse wo bruit Cardiovascular: Regular rate, Normal S1, Normal S2 Lungs: Other (coarse rhonchi) Abdomen: Bowel sounds, Soft Extremities: Edema, Other ((+3) bipedal edema) Neurological: Sensation intact Skin: no Rash Psych/Mental Status: Mood NL - Procedures Procedures: Procedures Procedure Code Date INSERT EMERGENCY AIRWAY 21626 02/19/17 INSERTION OF ENDOTRACHEAL AIRWAY INTO TRACHEA, VIA OPENING [id number] 02/19/17 RESPIRATORY VENTILATION, GREATER THAN 96 CONSECUTIVE HOURS [id number] 02/19/17 VENT MGMT INPAT INIT DAY 02/19/17 VENT MGMT INPAT SUBQ DAY 10344 02/19/17 Assessment/Plan - Problem List Patient Problems: All Active Problems Acute kidney failure (Acute) 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 Azotemia (Acute) R79.89 Bradycardia (Acute) R00.1 COPD (chronic obstructive pulmonary disease) (Acute) Cardiomegaly (Acute) I51.7 Chest pain (Acute) R07.9 Decubitus ulcer of buttock, 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 - Plan Plan: tracheostomy monitor vitals/diet labs f/up moving consultant Nutritional Asmnt/Malnutr-PDOC - Dietary Evaluation Malnutrition Findings (Please click <Entered> for more info): Nutritional Asmnt/Malnutrition Start: 02/21/17 18: 20 Text: Status: Complete Freq: Document 02/21/17 18:21 [email or web address] (Rec: 02/21/17 18:32 [email or web address] [email or web address]) Nutritional Asmnt/Malnutrition Patient General Information Nutritional Screening High Risk Consult Diagnosis gastric outlet obstruction Pertinent Medical Hx/Surgical Hx HTN, OA, DM, GERD Subjective Information Pt seen sleeping at the time of visit, attempted x 2. Spoke with RN, pt consumed 50% of breakfast and only the soup of lunch today, not much appetite, no complain of N/V. Pt will be NPO from midnight for GI exam tommorrow. Current Diet Order/ Nutrition Support no added salt 4gm, CCHO, no eggs, banana and cereal in morning Pertinent Medications colace, lasix, novolog, levaquin, piperacillin Pertinent Labs 02/20 Na 137, K 4.5, Cl 104, BUN 55, Cr 1.6, Glucose 137, POC 126-199 since admit, Ca 8. 3 Nutritional Hx/Data Height 1.57 m Height (Calculated Centimeters) 157.5 Current Weight (lbs) 97.023 kg Weight (Calculated Kilograms) 97.0 Weight (Calculated Grams) 56343.4 [place] Body Weight 110 % [place] Body Weight 194 Body Mass Index (BMI) 39.1 Weight Status Obese GI Symptoms GI Symptoms None Last BM none Difficult in: None Skin Integrity/Comment: multiple maceration, abrasion to right/left medial thigh Current %PO Poor (25-49%) Estimated Nutritional Goals BEE in Kcals: Adj wt of IBW Calories/Kcals/Kg 27-32 Kcals Calculated Protein: Adj wt of IBW Protein g/k-1.2 Protein Calculated 62-74 Fluid: ml Nutritional Problem 1. Problem Problem inadequate PO intake Etiology poor appetite Signs/Symptoms: PO intake 25-50% Malnutrition Alert Protein-Calorie Malnutrition N/A Is there a minimum of two criteria No selected? Query Text:Check all the applicable criteria. A minimum of two criteria are recommended for diagnosis of either severe or non-severe malnutrition. Intervention/Recommendation Comments 1. Continue with current diet as ordered. 2. Monitor PO intake, GI symptons, wt, labs and skin integrity 3. F/U as high risk in 2-3 days, 02/23-02/24 Expected Outcomes/Goals Expected Outcomes/Goals 1. PO intake to meet at least 75% of nutritional needs. 2. Wt stability, skin to remain intact, labs to improve
--- NOTE | 2017-03-13 16:25 | General Progress Note ---
Subjective - Review of Systems Service Date: 03/13/17 Subjective: opens eyes, on vent Objective - Results Result Diagrams: 03/13/17 06:10 03/13/17 06:10 Recent Labs: Laboratory Last Values WBC 11.1 Th/cmm (4.8-10.8) H 03/13/17 06:10 RBC 2.42 Mil/cmm (3.80-5.20) L 03/13/17 06:10 Hgb 7.2 gm/dL (12-16) L* 03/13/17 06:10 Hct 21.2 % (41.0-60) L 03/13/17 06:10 MCV 87.8 fl (81-100) 03/13/17 06:10 MCH 29.7 pg (27.0-31.0) 03/13/17 06:10 MCHC Differential 33.8 pg (28.0-36.0) 03/13/17 06:10 RDW 14.2 % (11.5-20.0) 03/13/17 06:10 Plt Count 86 Th/cmm (150-400) L 03/13/17 06:10 MPV 9.1 fl 03/13/17 06:10 Neutrophils % 77.8 % (40.0-80.0) 03/13/17 06:10 Band Neutrophils % 5 % (0-10) 03/06/17 06:00 Lymphocytes % 9.0 % (20.0-50.0) L 03/13/17 06:10 Monocytes % 5.8 % (2.0-10.0) 03/13/17 06:10 Eosinophils % 7.1 % (0.0-5.0) H 03/13/17 06:10 Basophils % 0.3 % (0.0-2.0) 03/13/17 06:10 Neutrophils (Manual) 85 % (40-80) H 03/06/17 06:00 Lymphocytes 4 % (20-50) L 03/06/17 06:00 Monocytes 3 % (2-10) 03/06/17 06:00 Eosinophils 3 % (0-5) 03/06/17 06:00 Metamyelocytes 1 % (0-0) H 02/18/17 23:35 Hypochromia 1+ 02/18/17 23:35 Platelet Estimate DECREASED PLATELETS (NORMAL) 03/06/17 06:00 Platelet Morphology (NORMAL) 03/04/17 08:00 Plt Count 86 Th/cmm (150-750) L 03/13/17 06:10 PT 13.8 SECONDS (9.5-11.5) H 03/13/17 06:10 INR 1.31 (0.5-1.4) 03/13/17 06:10 PTT (Actin FS) 37.5 SECONDS (26.0-38.0) 03/13/17 06:10 Fibrinogen 246.0 mg/dL (200.0-400.0) 03/13/17 06:10 D-Dimer 1170 ng/mL (100-400) H 03/13/17 06:10 Specimen Source Arterial 03/11/17 09:40 Sample Site Right Radial 03/11/17 09:40 pH 7.29 (7.35-7.45) L 03/11/17 09:40 pCO2 44.0 mmHg (35.0-45.0) 03/11/17 09:40 pO2 66.0 mmHg (80.0-100.0) L 03/11/17 09:40 HCO3 20.6 mEq/L (20.0-26.0) 03/11/17 09:40 Base Excess -5.3 mEq/L (-3.0-3.0) L 03/11/17 09:40 O2 Saturation 90.0 % (92.0-100.0) L 03/11/17 09:40 Jorje Test YES 03/11/17 09:40 Vent Rate 4 03/11/17 09:40 Inspired O2 30 03/11/17 09:40 Tidal Volume 550 03/11/17 09:40 PEEP 5 03/11/17 09:40 Pressure (ins/psv/peep) 15 03/11/17 09:40 Critical Value E.HERNANDEZ 03/11/17 09:40 Sodium 140 mEq/L (136-145) 03/13/17 06:10 Potassium 3.5 mEq/L (3.5-5.1) 03/13/17 06:10 Chloride 111 mEq/L (98-107) H 03/13/17 06:10 Carbon Dioxide 18.5 mEq/L (21.0-31.0) L 03/13/17 06:10 Anion Gap 14.0 (7.0-16.0) 03/13/17 06:10 BUN 46 mg/dL (7-25) H 03/13/17 06:10 Creatinine 1.6 mg/dL (0.6-1.2) H 03/13/17 06:10 Est GFR ( Amer) 41.1 ml/min (>90) 03/13/17 06:10 Est GFR (Non-Af Amer) 34.0 ml/min 03/13/17 06:10 BUN/Creatinine Ratio 28.8 03/13/17 06:10 Glucose 109 mg/dL (70-105) H 03/13/17 06:10 POC Glucose 147 MG/DL (70 - 105) H 03/11/17 04:32 Hemoglobin A1c % 5.8 % (4.0-6.0) 02/22/17 10:38 Whole Bld Lactic Acid 2.40 mmol/L (0.60-1.99) H* 02/27/17 15:04 Calcium 8.0 mg/dL (8.6-10.3) L 03/13/17 06:10 Phosphorus 2.5 mg/dL (2.5-5.0) 03/01/17 09:15 Magnesium 2.1 mg/dL (1.9-2.7) 03/01/17 09:15 Total Bilirubin 0.5 mg/dL (0.3-1.0) 03/11/17 08:15 Direct Bilirubin 0.09 mg/dL (0.0-0.2) 02/18/17 23:35 AST 19 U/L (13-39) 03/11/17 08:15 ALT 5 U/L (7-52) L 03/11/17 08:15 Alkaline Phosphatase 69 U/L (34-104) 03/11/17 08:15 Ammonia 38 umol/L (16-53) 03/01/17 17:28 B-Natriuretic Peptide 158.0 pg/mL (5.0-100.0) H 03/04/17 15:39 Total Protein 5.2 gm/dL (6.0-8.3) L 03/11/17 08:15 Albumin 2.9 gm/dL (3.7-5.3) L 03/11/17 08:15 Globulin 2.3 gm/dL 03/11/17 08:15 Albumin/Globulin Ratio 1.3 (1.0-1.8) 03/11/17 08:15 Amylase 36 U/L (29-103) 02/18/17 23:35 Lipase 10 U/L (11-82) L 02/18/17 23:35 Vitamin B12 860 pg/mL (232-1245) 02/26/17 04:45 Free T4 1.04 ng/dL (0.82-1.77) 02/25/17 04:50 Free T3 0.7 pg/mL (2.0-4.4) L 02/25/17 04:50 TSH 0.84 uIU/ml (0.34-5.60) 02/25/17 04:50 Total Cortisol 12.3 02/24/17 07:50 Urine Source [place] 02/27/17 15:00 Urine Color YELLOW 02/27/17 15:00 Urine Clarity CLOUDY (CLEAR) H 02/27/17 15:00 Urine pH 5.5 (4.6 - 8.0) 02/27/17 15:00 Ur Specific [place] <= 1.005 (1.005-1.030) 02/27/17 15:00 Urine Protein TRACE mg/dL (NEGATIVE) 02/27/17 15:00 Urine Glucose (UA) NEGATIVE mg/dL (NEGATIVE) 02/27/17 15:00 Urine Ketones NEGATIVE mg/dL (NEGATIVE) 02/27/17 15:00 Urine Blood LARGE (NEGATIVE) H 02/27/17 15:00 Urine Nitrate NEGATIVE (NEGATIVE) 02/27/17 15:00 Urine Bilirubin NEGATIVE (NEGATIVE) 02/27/17 15:00 Urine Urobilinogen 0.2 E.U./dL (0.2 - 1.0) 02/27/17 15:00 Ur Leukocyte Esterase LARGE (NEGATIVE) H 02/27/17 15:00 Urine RBC 10-25 /hpf (0-5) H 02/27/17 15:00 Urine WBC >100 /hpf (0-5) H 02/27/17 15:00 Ur Epithelial Cells MODERATE /lpf (FEW) 02/27/17 15:00 Urine Bacteria MODERATE /hpf (NONE SEEN) H 02/27/17 15:00 Urine Yeast MODERATE /hpf (NONE SEEN) H 02/20/17 16:15 Stool Occult Blood NEGATIVE (NEGATIVE) 03/11/17 17:25 Blood Type A POSITIVE 03/13/17 09:15 Antibody Screen NEGATIVE 03/13/17 09:15 Crossmatch See Detail 03/13/17 09:15 - Physical Exam Vitals and I&O: Vital Signs Temp 97.7 F 03/13/17 16:00 Pulse 82 03/13/17 16:00 Resp 23 03/13/17 16:00 BP 98/51 03/13/17 16:00 Pulse Ox 99 03/13/17 16:00 Intake & Output 03/12/17 03/13/17 03/13/17 18:59 06:59 18:59 Intake Total 1070 359.500 149.833 Output Total 330 450 Balance 740 -90.500 149.833 Weight (lbs) 124.369 kg 124.738 kg Intake: Intake, IV Amount 150 119.500 149.833 Meropenem 1 gm In Sodium 50 50 50 Chloride 0.9% 50 ml @ 100 mls/hr IV Q12H [facility] Rx#: [id number] Pantoprazole 80 mg In 100 69.500 99.833 Sodium Chloride 0.9% 100 ml @ 10 mls/hr IV Q10H [facility] Rx#:[id number] Tube Feeding 120 240 Blood Product 600 Other 200 Output: Urine 330 450 Other: # Bowel Movements 0 1 Stool Characteristics Soft Liquid Brown Active Medications: Current Medications Acetaminophen (Tylenol) 650 mg PO Q4HR PRN PRN Reason: Pain (Mild) Stop: 04/20/17 12:01 Last Admin: 03/06/17 03:23 Dose: 650 mg Albuterol/Ipratropium (Duoneb Neb) 3 ml HHN Q4HRT PRN PRN Reason: Wheezing Stop: 04/27/17 19:59 Last Admin: 02/28/17 03:18 Dose: 3 ml Albuterol/Ipratropium (Duoneb Neb) 3 ml HHN [id number] [facility] Stop: 04/27/17 19:59 Last Admin: 03/13/17 12:34 Dose: 3 ml Chlorhexidine Gluconate (Peridex) 15 ml MM 0800,1999 [facility] Stop: 04/28/17 19:59 Last Admin: 03/13/17 08:35 Dose: 15 ml Diltiazem HCl (Cardizem) 5 mg IVP Q4H PRN PRN Reason: HR > 120 Stop: 04/27/17 19:59 Last Admin: 02/27/17 04:59 Dose: 5 mg Docusate Sodium (Colace) 100 mg PO BID [facility] Stop: 04/20/17 16:59 Last Admin: 03/13/17 09:30 Dose: 100 mg Furosemide (Lasix) 40 mg IVP BID [facility] Stop: 05/08/17 08:59 Last Admin: 03/13/17 09:30 Dose: 40 mg Pantoprazole Sodium 80 mg/ (Sodium Chloride) 100 mls @ 10 mls/hr IV Q10H [facility] Stop: 04/20/17 08:59 Last Admin: 03/13/17 11:00 Dose: 10 mls/hr Phenylephrine HCl 10 mg/ (Sodium Chloride) 250 mls @ 0 mls/hr IV TITR PATRIA; Per Protocol PRN Reason: Protocol Stop: 04/28/17 07:59 Norepinephrine Bitartrate 8 mg (/ Sodium Chloride) 258 mls @ 0 mls/hr IV TITR PATRIA; Per Protocol PRN Reason: Protocol Stop: 04/28/17 09:59 Last Titration: 03/10/17 09:17 Dose: 0 mcg/min, 0 mls/hr Meropenem 1 gm/ Sodium (Chloride) 50 mls @ 100 mls/hr IV Q12H [facility] Stop: 05/11/17 10:59 Last Infusion: 03/13/17 12:25 Dose: Infused Insulin Aspart (Novolog Insulin Sliding Scale) 0 units SUBQ Q6H [facility]RIA PRN Reason: Protocol Stop: 05/03/17 00:00 Last Admin: 03/13/17 11:56 Dose: Not Given Metoclopramide HCl (Reglan) 5 mg IVP Q6HR [facility] Stop: 05/05/17 17:59 Last Admin: 03/13/17 11:52 Dose: 5 mg Metolazone (Zaroxolyn) 5 mg PO DAILY [facility] Stop: 05/10/17 13:14 Last Admin: 03/13/17 09:30 Dose: 5 mg Mirtazapine (Remeron) 15 mg PO HS PATRIA PRN Reason: Protocol Stop: 04/26/17 20:59 Last Admin: 03/12/17 20:34 Dose: 15 mg Miscellaneous (Probiotic Screen) 1 ea MC PRN PRN PRN Reason: PROTOCOL Stop: 04/21/17 16:25 Miscellaneous (Communication Order) 1 ea MC PRN PATRIA Stop: 05/10/17 13:14 Morphine Sulfate (Morphine) 1 mg IVP Q4HR PRN PRN Reason: Severe Pain Stop: 05/04/17 14:13 Last Admin: 03/13/17 09:10 Dose: 1 mg Nitroglycerin (Nitrostat) 0.4 mg SL Q5MIN PRN PRN Reason: Chest Pain Stop: 04/20/17 12:01 Nystatin (Nystop) 100,000 units TP BID PRN PRN Reason: SKIN EXCORIATIONS Stop: 04/21/17 15:35 Last Admin: 03/08/17 06:00 Dose: 100,000 units Ondansetron HCl (Zofran) 4 mg IV Q6H PRN PRN Reason: Nausea Stop: 04/20/17 03:38 General: No acute distress HEENT: Atraumatic, EOMI Neck: Supple, JVD, +2 carotid pulse wo bruit Cardiovascular: Regular rate, Normal S1, Normal S2 Lungs: Other (coarse rhonchi) Abdomen: Bowel sounds, Soft Extremities: Edema, Other ((+3) bipedal edema) Neurological: Sensation intact Skin: no Rash Psych/Mental Status: Mood NL - Procedures Procedures: Procedures Procedure Code Date INSERT EMERGENCY AIRWAY 20553 02/19/17 INSERTION OF ENDOTRACHEAL AIRWAY INTO [place]ACHEA, VIA OPENING [id number] 02/19/17 RESPIRATORY VENTILATION, GREATER THAN 96 CONSECUTIVE HOURS [id number] 02/19/17 VENT MGMT INPAT INIT DAY 02/19/17 VENT MGMT INPAT SUBQ DAY 02/19/17 Assessment/Plan - Problem List Patient Problems: All Active Problems Acute kidney failure (Acute) 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 Azotemia (Acute) R79.89 Bradycardia (Acute) R00.1 COPD (chronic obstructive pulmonary disease) (Acute) Cardiomegaly (Acute) I51.7 Chest pain (Acute) R07.9 Decubitus ulcer of buttock, 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 - Assessment Assessment: SOHAIL on CKD Acute resp failure on vent 2nd CHF, HAP, possible SOFIE, Exacerbation COPD Shock Sepsis DJD Type 2 DM GERD SOFIE Hyponatremia S/p [place], Appe anasarca Thrombocytopenia Anemia of CD - Plan Plan: Lab - Result Diagrams 03/01/17 09:15 03/01/17 09:15 Current Medications Acetaminophen (Tylenol) 650 mg PO Q4HR PRN PRN Reason: Pain (Mild) Stop: 04/20/17 12:01 Last Admin: 02/21/17 09:54 Dose: 650 mg Acetaminophen/Hydrocodone Bitart ([place] 5mg/325mg) 1 tab PO Q6H PRN PRN Reason: PAIN Stop: 04/20/17 13:24 Albuterol/Ipratropium (Duoneb Neb) 3 ml HHN Q4HRT PRN PRN Reason: Wheezing Stop: 04/27/17 19:59 Last Admin: 02/28/17 03:18 Dose: 3 ml Albuterol/Ipratropium (Duoneb Neb) 3 ml HHN [id number] PATRIA Stop: 04/27/17 19:59 Last Admin: 03/01/17 13:49 Dose: 3 ml Aspirin (Ecotrin) 81 mg PO DAILY [facility] Stop: 04/21/17 08:59 Last Admin: 03/01/17 09:30 Dose: Not Given Chlorhexidine Gluconate (Peridex) 15 ml MM 0800,2000 [facility] Stop: 04/28/17 19:59 Last Admin: 03/01/17 08:30 Dose: 15 ml Diltiazem HCl (Cardizem) 5 mg IVP Q4H PRN PRN Reason: HR > 120 Stop: 04/27/17 19:59 Last Admin: 02/27/17 04:59 Dose: 5 mg Docusate Sodium (Colace) 100 mg PO BID [facility] Stop: 04/20/17 16:59 Last Admin: 03/01/17 09:31 Dose: Not Given Fluconazole (Diflucan) 100 mg PO DAILY [facility] Stop: 03/08/17 08:59 Last Admin: 01/02/18 09:31 Dose: Not Given Furosemide (Lasix) 40 mg PO DAILY [facility] Stop: 04/21/17 08:59 Last Admin: 03/01/17 09:31 Dose: Not Given Pantoprazole Sodium 80 mg/ (Sodium Chloride) 100 mls @ 10 mls/hr IV Q10H [facility] Stop: 04/20/17 08:59 Last Admin: 03/01/17 09:31 Dose: 10 mls/hr Linezolid (Zyvox) 600 mg in 300 mls @ 300 mls/hr IV Q12HR [facility]RI[facility] Stop: 04/22/17 20:59 Last Infusion: 03/01/17 10:00 Dose: Infused Levofloxacin (Levaquin Pb) 250 mg in 50 mls @ 50 mls/hr IV Q24HR [facility] Stop: 04/23/17 20:59 Last Infusion: 02/28/17 21:17 Dose: Infused Phenylephrine HCl 10 mg/ (Sodium Chloride) 250 mls @ 0 mls/hr IV TITR PATRIA; Per Protocol PRN Reason: Protocol Stop: 04/28/17 07:59 Norepinephrine Bitartrate 8 mg (/ Sodium Chloride) 258 mls @ 0 mls/hr IV TITR PATRIA; Per Protocol PRN Reason: Protocol Stop: 04/28/17 09:59 Last Titration: 03/01/17 06:31 Dose: 6 mcg/min, 11.61 mls/hr Meropenem 1 gm/ Dextrose 100 mls @ 100 mls/hr IV Q12H [facility] Stop: 04/28/17 12:29 Last Infusion: 03/01/17 13:00 Dose: Infused Potassium Chloride/Dextrose/Sod Cl (D5-0.9ns W/Kcl 20meq) 1,000 mls @ 75 mls/ hr IV .[id number] [facility] Stop: 04/30/17 14:41 Insulin Aspart (Novolog Insulin Sliding Scale) 0 units SUBQ ACHS PATRIA PRN Reason: Protocol Stop: 04/20/17 16:29 Last Admin: 03/01/17 12:01 Dose: 4 units Mirtazapine (Remeron) 15 mg PO HS [facility]RIA PRN Reason: Protocol Stop: 04/26/17 20:59 Last Admin: 02/28/17 21:23 Dose: 15 mg Miscellaneous (Probiotic Screen) 1 ea MC PRN PRN PRN Reason: PROTOCOL Stop: 04/21/17 16:25 Morphine Sulfate (Morphine) 1 mg IVP Q3H PRN PRN Reason: Pain (Moderate) Stop: 04/20/17 01:59 Last Admin: 03/01/17 09:28 Dose: 1 mg Nitroglycerin (Nitrostat) 0.4 mg SL Q5MIN PRN PRN Reason: Chest Pain Stop: 04/20/17 12:01 Nystatin (Nystop) 100,000 units TP BID PRN PRN Reason: SKIN EXCORIATIONS Stop: 04/21/17 15:35 Last Admin: 02/21/17 11:46 Dose: 100,000 units Ondansetron HCl (Zofran) 4 mg IV Q6H PRN PRN Reason: Nausea Stop: 04/20/17 03:38 Spironolactone (Aldactone) 50 mg PO BID [facility]RIA Stop: 04/27/17 08:59 Last Admin: 03/01/17 09:29 Dose: Not Given Lab - Result Diagrams 03/13/17 06:10 03/13/17 06:10 Na up to 137 kidney fnc remain stable w/ BUN/Cr of 46/1.6 UOP improved to nam 2L CXR still w/ CHF, continue Lasix IVP, add metolazone DC spironolactone f/u electorlytes, cbc, CXR DC ivf due to worsening anasarca, chf add albumin initiate [id number] Plts up to 86 For transfusion of PRBC, FFP Peptamen @ 20 ml/hr Nutritional Asmnt/Malnutr-PDOC - Dietary Evaluation Malnutrition Findings (Please click <Entered> for more info): Nutritional Asmnt/Malnutrition Start: 02/21/17 18: 20 Text: Status: Complete Freq: Document 02/21/17 18:21 LCHENG (Rec: 02/21/17 18:32 LCHENG [id number]) Nutritional Asmnt/Malnutrition Patient General Information Nutritional Screening High Risk Consult Diagnosis gastric outlet obstruction Pertinent Medical Hx/Surgical Hx HTN, OA, DM, GERD Subjective Information Pt seen sleeping at the time of visit, attempted x 2. Spoke with RN, pt consumed 50% of breakfast and only the soup of lunch today, not much appetite, no complain of N/V. Pt will be NPO from midnight for GI exam tommorrow. Current Diet Order/ Nutrition Support no added salt 4gm, CCHO, no eggs, banana and cereal in morning Pertinent Medications colace, lasix, novolog, levaquin, piperacillin Pertinent Labs 02/20 Na 137, K 4.5, Cl 104, BUN 55, Cr 1.6, Glucose 137, POC 126-199 since admit, Ca 8. 3 Nutritional Hx/Data Height 1.57 m Height (Calculated Centimeters) 157.5 Current Weight (lbs) 97.023 kg Weight (Calculated Kilograms) 97.0 Weight (Calculated Grams) 59301.4 [place] Body Weight 110 % [place] Body Weight 194 Body Mass Index (BMI) 39.1 Weight Status Obese GI Symptoms GI Symptoms None Last BM none Difficult in: None Skin Integrity/Comment: multiple maceration, abrasion to right/left medial thigh Current %PO Poor (25-49%) Estimated Nutritional Goals BEE in Kcals: Adj wt of IBW Calories/Kcals/Kg 27-32 Kcals Calculated Protein: Adj wt of IBW Protein g/k-1.2 Protein Calculated 62-74 Fluid: ml Nutritional Problem 1. Problem Problem inadequate PO intake Etiology poor appetite Signs/Symptoms: PO intake 25-50% Malnutrition Alert Protein-Calorie Malnutrition N/A Is there a minimum of two criteria No selected? Query Text:Check all the applicable criteria. A minimum of two criteria are recommended for diagnosis of either severe or non-severe malnutrition. Intervention/Recommendation Comments 1. Continue with current diet as ordered. 2. Monitor PO intake, GI symptons, wt, labs and skin integrity 3. F/U as high risk in 2-3 days, 02/23-02/24 Expected Outcomes/Goals Expected Outcomes/Goals 1. PO intake to meet at least 75% of nutritional needs. 2. Wt stability, skin to remain intact, labs to improve
[2017-03-14] MEDS ORDERED: D5-0.45NS 1,000 ML IV SCH
[2017-03-14] MEDS: INSULIN ASPART SLIDING SCALE 100 UNITS/ML UNIT SUBQ SCH ×4 (00:04→17:13)
[2017-03-14] MEDS: Metoclopramide 5 mg/mL 2mL Vial IVP SCH ×4 (00:09→17:13)
--- NOTE | 2017-03-14 03:18 | Infectious Disease Prog Note ---
Infectious Disease Subjective - Review of Systems Service Date: 03/13/17 Subjective: Remains on vent intubated orally. on the ventilator support. Infectious Disease Objective - Results Result Diagrams: 03/13/17 06:10 03/13/17 06:10 Recent Labs: Laboratory Last Values WBC 11.1 Th/cmm (4.8-10.8) H 03/13/17 06:10 RBC 2.42 Mil/cmm (3.80-5.20) L 03/13/17 06:10 Hgb 7.2 gm/dL (12-16) L* 03/13/17 06:10 Hct 21.2 % (41.0-60) L 03/13/17 06:10 MCV 87.8 fl (81-100) 03/13/17 06:10 MCH 29.7 pg (27.0-31.0) 03/13/17 06:10 MCHC Differential 33.8 pg (28.0-36.0) 03/13/17 06:10 RDW 14.2 % (11.5-20.0) 03/13/17 06:10 Plt Count 86 Th/cmm (150-400) L 03/13/17 06:10 MPV 9.1 fl 03/13/17 06:10 Neutrophils % 77.8 % (40.0-80.0) 03/13/17 06:10 Band Neutrophils % 5 % (0-10) 03/06/17 06:00 Lymphocytes % 9.0 % (20.0-50.0) L 03/13/17 06:10 Monocytes % 5.8 % (2.0-10.0) 03/13/17 06:10 Eosinophils % 7.1 % (0.0-5.0) H 03/13/17 06:10 Basophils % 0.3 % (0.0-2.0) 03/13/17 06:10 Neutrophils (Manual) 85 % (40-80) H 03/06/17 06:00 Lymphocytes 4 % (20-50) L 03/06/17 06:00 Monocytes 3 % (2-10) 03/06/17 06:00 Eosinophils 3 % (0-5) 03/06/17 06:00 Metamyelocytes 1 % (0-0) H 02/18/17 23:35 Hypochromia 1+ 02/18/17 23:35 Platelet Estimate DECREASED PLATELETS (NORMAL) 03/06/17 06:00 Platelet Morphology (NORMAL) 03/04/17 08:00 Plt Count 86 Th/cmm (150-750) L 03/13/17 06:10 PT 13.8 SECONDS (9.5-11.5) H 03/13/17 06:10 INR 1.31 (0.5-1.4) 03/13/17 06:10 PTT (Actin FS) 37.5 SECONDS (26.0-38.0) 03/13/17 06:10 Fibrinogen 246.0 mg/dL (200.0-400.0) 03/13/17 06:10 D-Dimer 1170 ng/mL (100-400) H 03/13/17 06:10 Specimen Source Arterial 03/11/17 09:40 Sample Site Right Radial 03/11/17 09:40 pH 7.29 (7.35-7.45) L 03/11/17 09:40 pCO2 44.0 mmHg (35.0-45.0) 03/11/17 09:40 pO2 66.0 mmHg (80.0-100.0) L 03/11/17 09:40 HCO3 20.6 mEq/L (20.0-26.0) 03/11/17 09:40 Base Excess -5.3 mEq/L (-3.0-3.0) L 03/11/17 09:40 O2 Saturation 90.0 % (92.0-100.0) L 03/11/17 09:40 Jorje Test YES 03/11/17 09:40 Vent Rate 4 03/11/17 09:40 Inspired O2 30 03/11/17 09:40 Tidal Volume 550 03/11/17 09:40 PEEP 5 03/11/17 09:40 Pressure (ins/psv/peep) 15 03/11/17 09:40 Critical Value E.HERNANDEZ 03/11/17 09:40 Sodium 140 mEq/L (136-145) 03/13/17 06:10 Potassium 3.5 mEq/L (3.5-5.1) 03/13/17 06:10 Chloride 111 mEq/L (98-107) H 03/13/17 06:10 Carbon Dioxide 18.5 mEq/L (21.0-31.0) L 03/13/17 06:10 Anion Gap 14.0 (7.0-16.0) 03/13/17 06:10 BUN 46 mg/dL (7-25) H 03/13/17 06:10 Creatinine 1.6 mg/dL (0.6-1.2) H 03/13/17 06:10 Est GFR ( Amer) 41.1 ml/min (>90) 03/13/17 06:10 Est GFR (Non-Af Amer) 34.0 ml/min 03/13/17 06:10 BUN/Creatinine Ratio 28.8 03/13/17 06:10 Glucose 109 mg/dL (70-105) H 03/13/17 06:10 POC Glucose 121 MG/DL (70 - 105) H 03/14/17 00:02 Hemoglobin A1c % 5.8 % (4.0-6.0) 02/22/17 10:38 Whole Bld Lactic Acid 2.40 mmol/L (0.60-1.99) H* 02/27/17 15:04 Calcium 8.0 mg/dL (8.6-10.3) L 03/13/17 06:10 Phosphorus 2.5 mg/dL (2.5-5.0) 03/01/17 09:15 Magnesium 2.1 mg/dL (1.9-2.7) 03/01/17 09:15 Total Bilirubin 0.5 mg/dL (0.3-1.0) 03/11/17 08:15 Direct Bilirubin 0.09 mg/dL (0.0-0.2) 02/18/17 23:35 AST 19 U/L (13-39) 03/11/17 08:15 ALT 5 U/L (7-52) L 03/11/17 08:15 Alkaline Phosphatase 69 U/L (34-104) 03/11/17 08:15 Ammonia 38 umol/L (16-53) 03/01/17 17:28 B-Natriuretic Peptide 158.0 pg/mL (5.0-100.0) H 03/04/17 15:39 Total Protein 5.2 gm/dL (6.0-8.3) L 03/11/17 08:15 Albumin 2.9 gm/dL (3.7-5.3) L 03/11/17 08:15 Globulin 2.3 gm/dL 03/11/17 08:15 Albumin/Globulin Ratio 1.3 (1.0-1.8) 03/11/17 08:15 Amylase 36 U/L (29-103) 02/18/17 23:35 Lipase 10 U/L (11-82) L 02/18/17 23:35 Vitamin B12 860 pg/mL (232-1245) 02/26/17 04:45 Free T4 1.04 ng/dL (0.82-1.77) 02/25/17 04:50 Free T3 0.7 pg/mL (2.0-4.4) L 02/25/17 04:50 TSH 0.84 uIU/ml (0.34-5.60) 02/25/17 04:50 Total Cortisol 12.3 02/24/17 07:50 Urine Source [place] 02/27/17 15:00 Urine Color YELLOW 02/27/17 15:00 Urine Clarity CLOUDY (CLEAR) H 02/27/17 15:00 Urine pH 5.5 (4.6 - 8.0) 02/27/17 15:00 Ur Specific [place] <= 1.005 (1.005-1.030) 02/27/17 15:00 Urine Protein TRACE mg/dL (NEGATIVE) 02/27/17 15:00 Urine Glucose (UA) NEGATIVE mg/dL (NEGATIVE) 02/27/17 15:00 Urine Ketones NEGATIVE mg/dL (NEGATIVE) 02/27/17 15:00 Urine Blood LARGE (NEGATIVE) H 02/27/17 15:00 Urine Nitrate NEGATIVE (NEGATIVE) 02/27/17 15:00 Urine Bilirubin NEGATIVE (NEGATIVE) 02/27/17 15:00 Urine Urobilinogen 0.2 E.U./dL (0.2 - 1.0) 02/27/17 15:00 Ur Leukocyte Esterase LARGE (NEGATIVE) H 02/27/17 15:00 Urine RBC 10-25 /hpf (0-5) H 02/27/17 15:00 Urine WBC >100 /hpf (0-5) H 02/27/17 15:00 Ur Epithelial Cells MODERATE /lpf (FEW) 02/27/17 15:00 Urine Bacteria MODERATE /hpf (NONE SEEN) H 02/27/17 15:00 Urine Yeast MODERATE /hpf (NONE SEEN) H 02/20/17 16:15 Stool Occult Blood NEGATIVE (NEGATIVE) 03/11/17 17:25 Blood Type A POSITIVE 03/13/17 09:15 Antibody Screen NEGATIVE 03/13/17 09:15 Crossmatch See Detail 03/13/17 09:15 - Physical Exam Vitals and I&O: Vital Signs Temp 98.2 F 03/14/17 00:00 Pulse 81 03/14/17 03:00 Resp 19 03/14/17 03:00 BP 118/53 03/14/17 03:00 Pulse Ox 99 03/14/17 03:00 Intake & Output 03/13/17 03/13/17 03/14/17 06:59 18:59 06:59 Intake Total 093.411 5755.833 100 Output Total 450 600 Balance -90.500 539.833 100 Weight (lbs) 124.738 kg 124.993 kg 124.738 kg Intake: Intake, IV Amount 119.500 149.833 100 Meropenem 1 gm In Sodium 50 50 Chloride 0.9% 50 ml @ 100 mls/hr IV Q12H [facility] Rx#: [id number] Pantoprazole 80 mg In 69.500 99.833 100 Sodium Chloride 0.9% 100 ml @ 10 mls/hr IV Q10H [facility] Rx#:[id number] Tube Feeding 240 240 Blood Product 500 Other 250 Output: Urine 450 600 Other: # Bowel Movements 1 0 Stool Characteristics Soft Liquid Brown Active Medications: Current Medications Acetaminophen (Tylenol) 650 mg PO Q4HR PRN PRN Reason: Pain (Mild) Stop: 04/20/17 12:01 Last Admin: 03/06/17 03:23 Dose: 650 mg Albuterol/Ipratropium (Duoneb Neb) 3 ml HHN Q4HRT PRN PRN Reason: Wheezing Stop: 04/27/17 19:59 Last Admin: 02/28/17 03:18 Dose: 3 ml Albuterol/Ipratropium (Duoneb Neb) 3 ml HHN [id number] PATRIA Stop: 04/27/17 19:59 Last Admin: 03/13/17 19:41 Dose: 3 ml Chlorhexidine Gluconate (Peridex) 15 ml MM 0800,1999 [facility] Stop: 04/28/17 19:59 Last Admin: 03/13/17 20:45 Dose: 15 ml Diltiazem HCl (Cardizem) 5 mg IVP Q4H PRN PRN Reason: HR > 120 Stop: 04/27/17 19:59 Last Admin: 02/27/17 04:59 Dose: 5 mg Docusate Sodium (Colace) 100 mg PO BID [facility] Stop: 04/20/17 16:59 Last Admin: 03/13/17 17:45 Dose: 100 mg Furosemide (Lasix) 40 mg IVP BID [facility] Stop: 05/08/17 08:59 Last Admin: 03/13/17 17:46 Dose: 40 mg Pantoprazole Sodium 80 mg/ (Sodium Chloride) 100 mls @ 10 mls/hr IV Q10H [facility] Stop: 04/20/17 08:59 Last Admin: 03/13/17 21:15 Dose: 10 mls/hr Phenylephrine HCl 10 mg/ (Sodium Chloride) 250 mls @ 0 mls/hr IV TITR PATRIA; Per Protocol PRN Reason: Protocol Stop: 04/28/17 07:59 Norepinephrine Bitartrate 8 mg (/ Sodium Chloride) 258 mls @ 0 mls/hr IV TITR PATRIA; Per Protocol PRN Reason: Protocol Stop: 04/28/17 09:59 Last Titration: 03/10/17 09:17 Dose: 0 mcg/min, 0 mls/hr Meropenem 1 gm/ Sodium (Chloride) 50 mls @ 100 mls/hr IV Q12H [facility] Stop: 05/11/17 10:59 Last Admin: 03/13/17 22:14 Dose: 100 mls/hr Dextrose/Sodium Chloride (D5-0.45ns) 1,000 mls @ 30 mls/hr IV .Q24H [facility] Stop: 05/13/17 00:00 Last Admin: 03/14/17 00:05 Dose: 30 mls/hr Insulin Aspart (Novolog Insulin Sliding Scale) 0 units SUBQ Q6H PATRIA PRN Reason: Protocol Stop: 05/03/17 00:00 Last Admin: 03/14/17 00:04 Dose: Not Given Metoclopramide HCl (Reglan) 5 mg IVP Q6HR [facility] Stop: 05/05/17 17:59 Last Admin: 03/14/17 00:09 Dose: 5 mg Metolazone (Zaroxolyn) 5 mg PO DAILY PATRIA Stop: 05/10/17 13:14 Last Admin: 03/13/17 09:30 Dose: 5 mg Mirtazapine (Remeron) 15 mg PO HS PATRIA PRN Reason: Protocol Stop: 04/26/17 20:59 Last Admin: 03/13/17 20:44 Dose: 15 mg Miscellaneous (Probiotic Screen) 1 ea PRN PRN PRN Reason: PROTOCOL Stop: 04/21/17 16:25 Miscellaneous (Communication Order) 1 ea MC PRN PATRIA Stop: 05/10/17 13:14 Morphine Sulfate (Morphine) 1 mg IVP Q4HR PRN PRN Reason: Severe Pain Stop: 05/04/17 14:13 Last Admin: 03/13/17 09:10 Dose: 1 mg Nitroglycerin (Nitrostat) 0.4 mg SL Q5MIN PRN PRN Reason: Chest Pain Stop: 04/20/17 12:01 Nystatin (Nystop) 100,000 units TP BID PRN PRN Reason: SKIN EXCORIATIONS Stop: 04/21/17 15:35 Last Admin: 03/08/17 06:00 Dose: 100,000 units Ondansetron HCl (Zofran) 4 mg IV Q6H PRN PRN Reason: Nausea Stop: 04/20/17 03:38 General: no acute distress, well developed, well nourished, cachectic HEENT: atraumatic, normocephalic, PERRLA, EOMI Neck: supple, no thyromegaly, no lymphadenopathy Cardiovascular: S1S2, regular Lungs: clear to auscultation bilaterally, clear to percussion Abdomen: soft, no tender, no distended Extremities: no cyanosis, no clubbing, no edema Neurological: awake, alert, oriented Skin: intact - Procedures Procedures: Procedures Procedure Code Date INSERT EMERGENCY AIRWAY 79980 02/19/17 INSERTION OF ENDOTRACHEAL AIRWAY INTO [place], VIA OPENING [id number] 02/19/17 RESPIRATORY VENTILATION, GREATER THAN 96 CONSECUTIVE HOURS [id number] 02/19/17 VENT MGMT INPAT INIT DAY 96033 02/19/17 VENT MGMT INPAT SUBQ DAY 25580 02/19/17 Infectious Disease Assmt/Plan - Problem List Patient Problems: All Active Problems Acute kidney failure (Acute) 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 Sepsis. 2. Pneumonia. 3. UTI, Candiduria. 4. Renal failure. 5. Hypotension, improving 6. VDRF. 7. Thrombocytopenia. DIC - Plan Plan: continue meropenem. Nutritional Asmnt/Malnutr-PDOC - Dietary Evaluation Malnutrition Findings (Please click <Entered> for more info): Nutritional Asmnt/Malnutrition Start: 02/21/17 18: 20 Text: Status: Complete Freq: Document 02/21/17 18:21 LCHENG (Rec: 02/21/17 18:32 LCHENG [id number]) Nutritional Asmnt/Malnutrition Patient General Information Nutritional Screening High Risk Consult Diagnosis gastric outlet obstruction Pertinent Medical Hx/Surgical Hx HTN, OA, DM, GERD Subjective Information Pt seen sleeping at the time of visit, attempted x 2. Spoke with RN, pt consumed 50% of breakfast and only the soup of lunch today, not much appetite, no complain of N/V. Pt will be NPO from midnight for GI exam tommorrow. Current Diet Order/ Nutrition Support no added salt 4gm, CCHO, no eggs, banana and cereal in morning Pertinent Medications colace, lasix, novolog, levaquin, piperacillin Pertinent Labs 02/20 Na 137, K 4.5, Cl 104, BUN 55, Cr 1.6, Glucose 137, POC 126-199 since admit, Ca 8. 3 Nutritional Hx/Data Height 1.57 m Height (Calculated Centimeters) 157.5 Current Weight (lbs) 97.023 kg Weight (Calculated Kilograms) 97.0 Weight (Calculated Grams) 27369.4 [place] Body Weight 110 % [place] Body Weight 194 Body Mass Index (BMI) 39.1 Weight Status Obese GI Symptoms GI Symptoms None Last BM none Difficult in: None Skin Integrity/Comment: multiple maceration, abrasion to right/left medial thigh Current %PO Poor (25-49%) Estimated Nutritional Goals BEE in Kcals: Adj wt of IBW Calories/Kcals/Kg 27-32 Kcals Calculated Protein: Adj wt of IBW Protein g/k-1.2 Protein Calculated 62-74 Fluid: ml Nutritional Problem 1. Problem Problem inadequate PO intake Etiology poor appetite Signs/Symptoms: PO intake 25-50% Malnutrition Alert Protein-Calorie Malnutrition N/A Is there a minimum of two criteria No selected? Query Text:Check all the applicable criteria. A minimum of two criteria are recommended for diagnosis of either severe or non-severe malnutrition. Intervention/Recommendation Comments 1. Continue with current diet as ordered. 2. Monitor PO intake, GI symptons, wt, labs and skin integrity 3. F/U as high risk in 2-3 days, 02/23-02/24 Expected Outcomes/Goals Expected Outcomes/Goals 1. PO intake to meet at least 75% of nutritional needs. 2. Wt stability, skin to remain intact, labs to improve
[2017-03-14] MEDS: Morphine Sulfate 2 mg/mL 1mL Syr IVP PRN (05:20)
[2017-03-14 06:11] LABS: % EOSINOPHILS 4.8 % (0.0-5.0); % LYMPHOCYTES 11.5 % (20.0-50.0); % MONOCYTES 5.8 % (2.0-10.0); % NEUTROPHILS 77.9 % (40.0-80.0); EOSINOPHILE ABSOLUTE 0.7 Th/cmm (0.1-0.4); HEMATOCRIT 30.2 % (41.0-60); HEMOGLOBIN 10.1 gm/dL (12-16); LYMPHOCYTE ABSOLUTE 1.6 Th/cmm (1.5-3.0); MEAN CELL VOLUME 88.3 fl (81-100); MEAN CORPUSCULAR HEMOGLOBIN 29.6 pg (27.0-31.0); MEAN CORPUSCULAR HGB CONC 33.5 pg (28.0-36.0); MEAN PLATELET VOLUME 8.3 fl; MONOCYTE ABSOLUTE 0.8 Th/cmm (0.3-1.0); NEUTROPHILE ABSOLUTE 10.5 Th/cmm (1.8-8.0); RED BLOOD COUNT 3.41 Mil/cmm (3.80-5.20); RED CELL DISTRIBUTION WIDTH 15.2 % (11.5-20.0)
[2017-03-14 06:31] LABS: WHITE BLOOD COUNT 13.6 Th/cmm (4.8-10.8)
[2017-03-14 06:32] LABS: PLATELET COUNT 117 Th/cmm (150-400)
[2017-03-14 06:37] LABS: CALCIUM SERUM 7.8 mg/dL (8.6-10.3); CARBON DIOXIDE 18.4 mEq/L (21.0-31.0); CREATININE - SERUM 1.7 mg/dL (0.6-1.2); GFR AFRICAN-AMERICAN 38.3 ml/min (>90); GFR NON AFRICAN-AMERICAN 31.7 ml/min; POTASSIUM SERUM 3.4 mEq/L (3.5-5.1)
[2017-03-14] MEDS: Albuterol/Ipratropium Neb 3 ML AERS HHN SCH ×3 (07:28→18:52)
[2017-03-14 07:30] LABS: INR 1.26 (0.5-1.4); PROTHROMBIN TIME (TEST) 13.3 SECONDS (9.5-11.5)
[2017-03-14] MEDS: Multivitamin w/ Minerals Tab PO SCH (08:47)
[2017-03-14] MEDS: Metolazone 5 MG TAB PO SCH (08:47)
[2017-03-14] MEDS: Pantoprazole 80 MG in Sodium Chloride 0.9% 100 ML IV SCH (08:54)
[2017-03-14] MEDS: Chlorhexidine Gluconate 0.12% 15mL Mouthwash MM SCH ×2 (08:55→20:22)
[2017-03-14] MEDS ORDERED: Propofol 10 mg/mL 20mL Vial **SURGERY USE ONLY IV ONE (10:45)
[2017-03-14] MEDS ORDERED: EPINEPHRine /Lidocaine 1% 20 mL Vial INJ ONE (10:45)
--- NOTE | 2017-03-14 11:29 | General Progress Note ---
Subjective - Review of Systems Service Date: 03/14/17 Objective - Results Result Diagrams: 03/14/17 06:00 03/14/17 06:00 Recent Labs: Laboratory Last Values WBC 13.6 Th/cmm (4.8-10.8) H D 03/14/17 06:00 RBC 3.41 Mil/cmm (3.80-5.20) L 03/14/17 06:00 Hgb 10.1 gm/dL (12-16) L 03/14/17 06:00 Hct 30.2 % (41.0-60) L D 03/14/17 06:00 MCV 88.3 fl (81-100) 03/14/17 06:00 MCH 29.6 pg (27.0-31.0) 03/14/17 06:00 MCHC Differential 33.5 pg (28.0-36.0) 03/14/17 06:00 RDW 15.2 % (11.5-20.0) 03/14/17 06:00 Plt Count 117 Th/cmm (150-400) L D 03/14/17 06:00 MPV 8.3 fl 03/14/17 06:00 Neutrophils % 77.9 % (40.0-80.0) 03/14/17 06:00 Band Neutrophils % 5 % (0-10) 03/06/17 06:00 Lymphocytes % 11.5 % (20.0-50.0) L 03/14/17 06:00 Monocytes % 5.8 % (2.0-10.0) 03/14/17 06:00 Eosinophils % 4.8 % (0.0-5.0) 03/14/17 06:00 Basophils % 0.0 % (0.0-2.0) 03/14/17 06:00 Neutrophils (Manual) 85 % (40-80) H 03/06/17 06:00 Lymphocytes 4 % (20-50) L 03/06/17 06:00 Monocytes 3 % (2-10) 03/06/17 06:00 Eosinophils 3 % (0-5) 03/06/17 06:00 Metamyelocytes 1 % (0-0) H 02/18/17 23:35 Hypochromia 1+ 02/18/17 23:35 Platelet Estimate DECREASED PLATELETS (NORMAL) 03/06/17 06:00 Platelet Morphology (NORMAL) 03/04/17 08:00 Plt Count 117 Th/cmm (150-750) L D 03/14/17 06:00 PT 13.3 SECONDS (9.5-11.5) H 03/14/17 06:00 INR 1.26 (0.5-1.4) 03/14/17 06:00 PTT (Actin FS) 34.1 SECONDS (26.0-38.0) 03/14/17 06:00 Fibrinogen 252.0 mg/dL (200.0-400.0) 03/14/17 06:00 D-Dimer 1600 ng/mL (100-400) H 03/14/17 06:00 Specimen Source Arterial 03/11/17 09:40 Sample Site Right Radial 03/11/17 09:40 pH 7.29 (7.35-7.45) L 03/11/17 09:40 pCO2 44.0 mmHg (35.0-45.0) 03/11/17 09:40 pO2 66.0 mmHg (80.0-100.0) L 03/11/17 09:40 HCO3 20.6 mEq/L (20.0-26.0) 03/11/17 09:40 Base Excess -5.3 mEq/L (-3.0-3.0) L 03/11/17 09:40 O2 Saturation 90.0 % (92.0-100.0) L 03/11/17 09:40 Jorje Test YES 03/11/17 09:40 Vent Rate 4 03/11/17 09:40 Inspired O2 30 03/11/17 09:40 Tidal Volume 550 03/11/17 09:40 PEEP 5 03/11/17 09:40 Pressure (ins/psv/peep) 15 03/11/17 09:40 Critical Value E.HERNANDEZ 03/11/17 09:40 Sodium 140 mEq/L (136-145) 03/14/17 06:00 Potassium 3.4 mEq/L (3.5-5.1) L 03/14/17 06:00 Chloride 110 mEq/L (98-107) H 03/14/17 06:00 Carbon Dioxide 18.4 mEq/L (21.0-31.0) L 03/14/17 06:00 Anion Gap 15.0 (7.0-16.0) 03/14/17 06:00 BUN 44 mg/dL (7-25) H 03/14/17 06:00 Creatinine 1.7 mg/dL (0.6-1.2) H 03/14/17 06:00 Est GFR ( Amer) 38.3 ml/min (>90) 03/14/17 06:00 Est GFR (Non-Af Amer) 31.7 ml/min 03/14/17 06:00 BUN/Creatinine Ratio 25.9 03/14/17 06:00 Glucose 140 mg/dL (70-105) H 03/14/17 06:00 POC Glucose 124 MG/DL (70 - 105) H 03/14/17 05:30 Hemoglobin A1c % 5.8 % (4.0-6.0) 02/22/17 10:38 Whole Bld Lactic Acid 2.40 mmol/L (0.60-1.99) H* 02/27/17 15:04 Calcium 7.8 mg/dL (8.6-10.3) L 03/14/17 06:00 Phosphorus 2.5 mg/dL (2.5-5.0) 03/01/17 09:15 Magnesium 2.1 mg/dL (1.9-2.7) 03/01/17 09:15 Total Bilirubin 0.5 mg/dL (0.3-1.0) 03/11/17 08:15 Direct Bilirubin 0.09 mg/dL (0.0-0.2) 02/18/17 23:35 AST 19 U/L (13-39) 03/11/17 08:15 ALT 5 U/L (7-52) L 03/11/17 08:15 Alkaline Phosphatase 69 U/L (34-104) 03/11/17 08:15 Ammonia 38 umol/L (16-53) 03/01/17 17:28 B-Natriuretic Peptide 158.0 pg/mL (5.0-100.0) H 03/04/17 15:39 Total Protein 5.2 gm/dL (6.0-8.3) L 03/11/17 08:15 Albumin 2.9 gm/dL (3.7-5.3) L 03/11/17 08:15 Globulin 2.3 gm/dL 03/11/17 08:15 Albumin/Globulin Ratio 1.3 (1.0-1.8) 03/11/17 08:15 Amylase 36 U/L (29-103) 02/18/17 23:35 Lipase 10 U/L (11-82) L 02/18/17 23:35 Vitamin B12 860 pg/mL (232-1245) 02/26/17 04:45 Free T4 1.04 ng/dL (0.82-1.77) 02/25/17 04:50 Free T3 0.7 pg/mL (2.0-4.4) L 02/25/17 04:50 TSH 0.84 uIU/ml (0.34-5.60) 02/25/17 04:50 Total Cortisol 12.3 02/24/17 07:50 Urine Source [place] 02/27/17 15:00 Urine Color YELLOW 02/27/17 15:00 Urine Clarity CLOUDY (CLEAR) H 02/27/17 15:00 Urine pH 5.5 (4.6 - 8.0) 02/27/17 15:00 Ur Specific [place] <= 1.005 (1.005-1.030) 02/27/17 15:00 Urine Protein TRACE mg/dL (NEGATIVE) 02/27/17 15:00 Urine Glucose (UA) NEGATIVE mg/dL (NEGATIVE) 02/27/17 15:00 Urine Ketones NEGATIVE mg/dL (NEGATIVE) 02/27/17 15:00 Urine Blood LARGE (NEGATIVE) H 02/27/17 15:00 Urine Nitrate NEGATIVE (NEGATIVE) 02/27/17 15:00 Urine Bilirubin NEGATIVE (NEGATIVE) 02/27/17 15:00 Urine Urobilinogen 0.2 E.U./dL (0.2 - 1.0) 02/27/17 15:00 Ur Leukocyte Esterase LARGE (NEGATIVE) H 02/27/17 15:00 Urine RBC 10-25 /hpf (0-5) H 02/27/17 15:00 Urine WBC >100 /hpf (0-5) H 02/27/17 15:00 Ur Epithelial Cells MODERATE /lpf (FEW) 02/27/17 15:00 Urine Bacteria MODERATE /hpf (NONE SEEN) H 02/27/17 15:00 Urine Yeast MODERATE /hpf (NONE SEEN) H 02/20/17 16:15 Stool Occult Blood NEGATIVE (NEGATIVE) 03/11/17 17:25 Blood Type A POSITIVE 03/13/17 09:15 Antibody Screen NEGATIVE 03/13/17 09:15 Crossmatch See Detail 03/13/17 09:15 - Physical Exam Vitals and I&O: Vital Signs Temp 97.3 F 03/14/17 09:00 Pulse 85 03/14/17 11:04 Resp 13 03/14/17 09:00 BP 96/48 03/14/17 09:00 Pulse Ox 99 03/14/17 11:04 Intake & Output 03/13/17 03/14/17 03/14/17 18:59 06:59 18:59 Intake Total 1139.833 515.0 12.5 Output Total 600 600 Balance 539.833 -85.0 12.5 Weight (lbs) 124.993 kg 125.191 kg Intake: Intake, IV Amount 149.833 415.0 12.5 D5-0.45NS 1,000 ml @ 30 177.5 mls/hr IV .Q24H [facility] Rx#: [id number] Meropenem 1 gm In Sodium 50 50 Chloride 0.9% 50 ml @ 100 mls/hr IV Q12H [facility] Rx#: [id number] Pantoprazole 80 mg In 99.833 187.5 12.5 Sodium Chloride 0.9% 100 ml @ 10 mls/hr IV Q10H [facility] Rx#:[id number] Tube Feeding 240 100 Blood Product 500 Other 250 Output: Urine 600 600 Other: # Bowel Movements 0 Stool Characteristics Soft Liquid Brown Active Medications: Current Medications Acetaminophen (Tylenol) 650 mg PO Q4HR PRN PRN Reason: Pain (Mild) Stop: 04/20/17 12:01 Last Admin: 03/06/17 03:23 Dose: 650 mg Albuterol/Ipratropium (Duoneb Neb) 3 ml HHN Q4HRT PRN PRN Reason: Wheezing Stop: 04/27/17 19:59 Last Admin: 02/28/17 03:18 Dose: 3 ml Albuterol/Ipratropium (Duoneb Neb) 3 ml HHN [id number] PATRIA Stop: 04/27/17 19:59 Last Admin: 03/14/17 07:28 Dose: 3 ml Chlorhexidine Gluconate (Peridex) 15 ml MM 0800,1999 [facility] Stop: 04/28/17 19:59 Last Admin: 03/14/17 08:55 Dose: 15 ml Diltiazem HCl (Cardizem) 5 mg IVP Q4H PRN PRN Reason: HR > 120 Stop: 04/27/17 19:59 Last Admin: 02/27/17 04:59 Dose: 5 mg Docusate Sodium (Colace) 100 mg PO BID [facility] Stop: 04/20/17 16:59 Last Admin: 03/14/17 08:47 Dose: Not Given Furosemide (Lasix) 40 mg IVP BID [facility] Stop: 05/08/17 08:59 Last Admin: 03/14/17 08:53 Dose: 40 mg Pantoprazole Sodium 80 mg/ (Sodium Chloride) 100 mls @ 10 mls/hr IV Q10H [facility] Stop: 04/20/17 08:59 Last Admin: 03/14/17 08:54 Dose: 10 mls/hr Phenylephrine HCl 10 mg/ (Sodium Chloride) 250 mls @ 0 mls/hr IV TITR PATRIA; Per Protocol PRN Reason: Protocol Stop: 04/28/17 07:59 Norepinephrine Bitartrate 8 mg (/ Sodium Chloride) 258 mls @ 0 mls/hr IV TITR PATRIA; Per Protocol PRN Reason: Protocol Stop: 04/28/17 09:59 Last Titration: 03/10/17 09:17 Dose: 0 mcg/min, 0 mls/hr Meropenem 1 gm/ Sodium (Chloride) 50 mls @ 100 mls/hr IV Q12H [facility] Stop: 05/11/17 10:59 Last Admin: 03/14/17 10:45 Dose: 100 mls/hr Dextrose/Sodium Chloride (D5-0.45ns) 1,000 mls @ 30 mls/hr IV .Q24H [facility] Stop: 05/13/17 00:00 Last Infusion: 03/14/17 06:00 Dose: 30 mls/hr Insulin Aspart (Novolog Insulin Sliding Scale) 0 units SUBQ Q6H PATRIA PRN Reason: Protocol Stop: 05/03/17 00:00 Last Admin: 03/14/17 05:40 Dose: Not Given Metoclopramide HCl (Reglan) 5 mg IVP Q6HR [facility] Stop: 05/05/17 17:59 Last Admin: 03/14/17 05:20 Dose: 5 mg Metolazone (Zaroxolyn) 5 mg PO DAILY PATRIA Stop: 05/10/17 13:14 Last Admin: 03/14/17 08:47 Dose: Not Given Mirtazapine (Remeron) 15 mg PO HS PATRIA PRN Reason: Protocol Stop: 04/26/17 20:59 Last Admin: 03/13/17 20:44 Dose: 15 mg Miscellaneous (Probiotic Screen) 1 ea PRN PRN PRN Reason: PROTOCOL Stop: 04/21/17 16:25 Miscellaneous (Communication Order) 1 ea PRN PATRIA Stop: 05/10/17 13:14 Morphine Sulfate (Morphine) 1 mg IVP Q4HR PRN PRN Reason: Severe Pain Stop: 05/04/17 14:13 Last Admin: 03/14/17 05:20 Dose: 1 mg Nitroglycerin (Nitrostat) 0.4 mg SL Q5MIN PRN PRN Reason: Chest Pain Stop: 04/20/17 12:01 Nystatin (Nystop) 100,000 units TP BID PRN PRN Reason: SKIN EXCORIATIONS Stop: 04/21/17 15:35 Last Admin: 03/08/17 06:00 Dose: 100,000 units Ondansetron HCl (Zofran) 4 mg IV Q6H PRN PRN Reason: Nausea Stop: 04/20/17 03:38 General: No acute distress HEENT: Atraumatic (on ETT/VENT), EOMI Neck: Supple, JVD, +2 carotid pulse wo bruit Cardiovascular: Regular rate, Normal S1, Normal S2 Lungs: Other (coarse rhonchi) Abdomen: Bowel sounds, Soft Extremities: Edema, Other ((+3) bipedal edema) Neurological: Sensation intact Skin: no Rash Psych/Mental Status: Mood NL - Procedures Procedures: Procedures Procedure Code Date INSERT EMERGENCY AIRWAY 39234 02/19/17 INSERTION OF ENDOTRACHEAL AIRWAY INTO [place]HE[place], VIA OPENING [id number] 02/19/17 RESPIRATORY VENTILATION, GREATER THAN 96 CONSECUTIVE HOURS [id number] 02/19/17 VENT MGMT INPAT INIT DAY 36660 02/19/17 VENT MGMT INPAT SUBQ DAY 47847 02/19/17 Assessment/Plan - Problem List Patient Problems: All Active Problems Acute kidney failure (Acute) 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 Azotemia (Acute) R79.89 Bradycardia (Acute) R00.1 COPD (chronic obstructive pulmonary disease) (Acute) Cardiomegaly (Acute) I51.7 Chest pain (Acute) R07.9 Decubitus ulcer of buttock, 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 - Assessment Assessment: * SEPTIC SHOCK * DIC * RESPIRATORY FAILURE * RENAL FAILURE TRANSFUSED PLT BEFORE TRACHEOSTOMY TRACH UNDERWAY FOLLOW DIC PARAMETERS Nutritional Asmnt/Malnutr-PDOC - Dietary Evaluation Malnutrition Findings (Please click <Entered> for more info): Nutritional Asmnt/Malnutrition Start: 02/21/17 18: 20 Text: Status: Complete Freq: Document 02/21/17 18:21 LCHENG (Rec: 02/21/17 18:32 LCHENG [place] [id number]) Nutritional Asmnt/Malnutrition Patient General Information Nutritional Screening High Risk Consult Diagnosis gastric outlet obstruction Pertinent Medical Hx/Surgical Hx HTN, OA, DM, GERD Subjective Information Pt seen sleeping at the time of visit, attempted x 2. Spoke with RN, pt consumed 50% of breakfast and only the soup of lunch today, not much appetite, no complain of N/V. Pt will be NPO from midnight for GI exam tommorrow. Current Diet Order/ Nutrition Support no added salt 4gm, CCHO, no eggs, banana and cereal in morning Pertinent Medications colace, lasix, novolog, levaquin, piperacillin Pertinent Labs 02/20 Na 137, K 4.5, Cl 104, BUN 55, Cr 1.6, Glucose 137, POC 126-199 since admit, Ca 8. 3 Nutritional Hx/Data Height 1.57 m Height (Calculated Centimeters) 157.5 Current Weight (lbs) 97.023 kg Weight (Calculated Kilograms) 97.0 Weight (Calculated Grams) 71634.4 [place] Body Weight 110 % [place] Body Weight 194 Body Mass Index (BMI) 39.1 Weight Status Obese GI Symptoms GI Symptoms None Last BM none Difficult in: None Skin Integrity/Comment: multiple maceration, abrasion to right/left medial thigh Current %PO Poor (25-49%) Estimated Nutritional Goals BEE in Kcals: Adj wt of IBW Calories/Kcals/Kg 27-32 Kcals Calculated Protein: Adj wt of IBW Protein g/k-1.2 Protein Calculated 62-74 Fluid: ml Nutritional Problem 1. Problem Problem inadequate PO intake Etiology poor appetite Signs/Symptoms: PO intake 25-50% Malnutrition Alert Protein-Calorie Malnutrition N/A Is there a minimum of two criteria No selected? Query Text:Check all the applicable criteria. A minimum of two criteria are recommended for diagnosis of either severe or non-severe malnutrition. Intervention/Recommendation Comments 1. Continue with current diet as ordered. 2. Monitor PO intake, GI symptons, wt, labs and skin integrity 3. F/U as high risk in 2-3 days, 02/23-02/24 Expected Outcomes/Goals Expected Outcomes/Goals 1. PO intake to meet at least 75% of nutritional needs. 2. Wt stability, skin to remain intact, labs to improve
--- NOTE | 2017-03-14 12:16 | GI Progress Note ---
Subjective - Review of Systems Subjective: NO EVENTS S/P TRACH Objective - Results Result Diagrams: 03/14/17 06:00 03/14/17 06:00 Recent Labs: Laboratory Last Values WBC 13.6 Th/cmm (4.8-10.8) H D 03/14/17 06:00 RBC 3.41 Mil/cmm (3.80-5.20) L 03/14/17 06:00 Hgb 10.1 gm/dL (12-16) L 03/14/17 06:00 Hct 30.2 % (41.0-60) L D 03/14/17 06:00 MCV 88.3 fl (81-100) 03/14/17 06:00 MCH 29.6 pg (27.0-31.0) 03/14/17 06:00 MCHC Differential 33.5 pg (28.0-36.0) 03/14/17 06:00 RDW 15.2 % (11.5-20.0) 03/14/17 06:00 Plt Count 117 Th/cmm (150-400) L D 03/14/17 06:00 MPV 8.3 fl 03/14/17 06:00 Neutrophils % 77.9 % (40.0-80.0) 03/14/17 06:00 Band Neutrophils % 5 % (0-10) 03/06/17 06:00 Lymphocytes % 11.5 % (20.0-50.0) L 03/14/17 06:00 Monocytes % 5.8 % (2.0-10.0) 03/14/17 06:00 Eosinophils % 4.8 % (0.0-5.0) 03/14/17 06:00 Basophils % 0.0 % (0.0-2.0) 03/14/17 06:00 Neutrophils (Manual) 85 % (40-80) H 03/06/17 06:00 Lymphocytes 4 % (20-50) L 03/06/17 06:00 Monocytes 3 % (2-10) 03/06/17 06:00 Eosinophils 3 % (0-5) 03/06/17 06:00 Metamyelocytes 1 % (0-0) H 02/18/17 23:35 Hypochromia 1+ 02/18/17 23:35 Platelet Estimate DECREASED PLATELETS (NORMAL) 03/06/17 06:00 Platelet Morphology (NORMAL) 03/04/17 08:00 Plt Count 117 Th/cmm (150-750) L D 03/14/17 06:00 PT 13.3 SECONDS (9.5-11.5) H 03/14/17 06:00 INR 1.26 (0.5-1.4) 03/14/17 06:00 PTT (Actin FS) 34.1 SECONDS (26.0-38.0) 03/14/17 06:00 Fibrinogen 252.0 mg/dL (200.0-400.0) 03/14/17 06:00 D-Dimer 1600 ng/mL (100-400) H 03/14/17 06:00 Specimen Source Arterial 03/11/17 09:40 Sample Site Right Radial 03/11/17 09:40 pH 7.29 (7.35-7.45) L 03/11/17 09:40 pCO2 44.0 mmHg (35.0-45.0) 03/11/17 09:40 pO2 66.0 mmHg (80.0-100.0) L 03/11/17 09:40 HCO3 20.6 mEq/L (20.0-26.0) 03/11/17 09:40 Base Excess -5.3 mEq/L (-3.0-3.0) L 03/11/17 09:40 O2 Saturation 90.0 % (92.0-100.0) L 03/11/17 09:40 Jorje Test YES 03/11/17 09:40 Vent Rate 4 03/11/17 09:40 Inspired O2 30 03/11/17 09:40 Tidal Volume 550 03/11/17 09:40 PEEP 5 03/11/17 09:40 Pressure (ins/psv/peep) 15 03/11/17 09:40 Critical Value E.HERNANDEZ 03/11/17 09:40 Sodium 140 mEq/L (136-145) 03/14/17 06:00 Potassium 3.4 mEq/L (3.5-5.1) L 03/14/17 06:00 Chloride 110 mEq/L (98-107) H 03/14/17 06:00 Carbon Dioxide 18.4 mEq/L (21.0-31.0) L 03/14/17 06:00 Anion Gap 15.0 (7.0-16.0) 03/14/17 06:00 BUN 44 mg/dL (7-25) H 03/14/17 06:00 Creatinine 1.7 mg/dL (0.6-1.2) H 03/14/17 06:00 Est GFR ( Amer) 38.3 ml/min (>90) 03/14/17 06:00 Est GFR (Non-Af Amer) 31.7 ml/min 03/14/17 06:00 BUN/Creatinine Ratio 25.9 03/14/17 06:00 Glucose 140 mg/dL (70-105) H 03/14/17 06:00 POC Glucose 124 MG/DL (70 - 105) H 03/14/17 05:30 Hemoglobin A1c % 5.8 % (4.0-6.0) 02/22/17 10:38 Whole Bld Lactic Acid 2.40 mmol/L (0.60-1.99) H* 02/27/17 15:04 Calcium 7.8 mg/dL (8.6-10.3) L 03/14/17 06:00 Phosphorus 2.5 mg/dL (2.5-5.0) 03/01/17 09:15 Magnesium 2.1 mg/dL (1.9-2.7) 03/01/17 09:15 Total Bilirubin 0.5 mg/dL (0.3-1.0) 03/11/17 08:15 Direct Bilirubin 0.09 mg/dL (0.0-0.2) 02/18/17 23:35 AST 19 U/L (13-39) 03/11/17 08:15 ALT 5 U/L (7-52) L 03/11/17 08:15 Alkaline Phosphatase 69 U/L (34-104) 03/11/17 08:15 Ammonia 38 umol/L (16-53) 03/01/17 17:28 B-Natriuretic Peptide 158.0 pg/mL (5.0-100.0) H 03/04/17 15:39 Total Protein 5.2 gm/dL (6.0-8.3) L 03/11/17 08:15 Albumin 2.9 gm/dL (3.7-5.3) L 03/11/17 08:15 Globulin 2.3 gm/dL 03/11/17 08:15 Albumin/Globulin Ratio 1.3 (1.0-1.8) 03/11/17 08:15 Amylase 36 U/L (29-103) 02/18/17 23:35 Lipase 10 U/L (11-82) L 02/18/17 23:35 Vitamin B12 860 pg/mL (232-1245) 02/26/17 04:45 Free T4 1.04 ng/dL (0.82-1.77) 02/25/17 04:50 Free T3 0.7 pg/mL (2.0-4.4) L 02/25/17 04:50 TSH 0.84 uIU/ml (0.34-5.60) 02/25/17 04:50 Total Cortisol 12.3 02/24/17 07:50 Urine Source [place] 02/27/17 15:00 Urine Color YELLOW 02/27/17 15:00 Urine Clarity CLOUDY (CLEAR) H 02/27/17 15:00 Urine pH 5.5 (4.6 - 8.0) 02/27/17 15:00 Ur Specific [place] <= 1.005 (1.005-1.030) 02/27/17 15:00 Urine Protein TRACE mg/dL (NEGATIVE) 02/27/17 15:00 Urine Glucose (UA) NEGATIVE mg/dL (NEGATIVE) 02/27/17 15:00 Urine Ketones NEGATIVE mg/dL (NEGATIVE) 02/27/17 15:00 Urine Blood LARGE (NEGATIVE) H 02/27/17 15:00 Urine Nitrate NEGATIVE (NEGATIVE) 02/27/17 15:00 Urine Bilirubin NEGATIVE (NEGATIVE) 02/27/17 15:00 Urine Urobilinogen 0.2 E.U./dL (0.2 - 1.0) 02/27/17 15:00 Ur Leukocyte Esterase LARGE (NEGATIVE) H 02/27/17 15:00 Urine RBC 10-25 /hpf (0-5) H 02/27/17 15:00 Urine WBC >100 /hpf (0-5) H 02/27/17 15:00 Ur Epithelial Cells MODERATE /lpf (FEW) 02/27/17 15:00 Urine Bacteria MODERATE /hpf (NONE SEEN) H 02/27/17 15:00 Urine Yeast MODERATE /hpf (NONE SEEN) H 02/20/17 16:15 Stool Occult Blood NEGATIVE (NEGATIVE) 03/11/17 17:25 Blood Type A POSITIVE 03/13/17 09:15 Antibody Screen NEGATIVE 03/13/17 09:15 Crossmatch See Detail 03/13/17 09:15 - Physical Exam Vitals and I&O: Vital Signs Temp 97 F 03/14/17 11:00 Pulse 85 03/14/17 11:04 Resp 12 03/14/17 11:00 BP 92/44 03/14/17 11:00 Pulse Ox 99 03/14/17 11:04 Intake & Output 03/13/17 03/14/17 03/14/17 18:59 06:59 18:59 Intake Total 1139.833 515.0 12.5 Output Total 600 600 Balance 539.833 -85.0 12.5 Weight (lbs) 124.993 kg 125.191 kg Intake: Intake, IV Amount 149.833 415.0 12.5 D5-0.45NS 1,000 ml @ 30 177.5 mls/hr IV .Q24H [facility] Rx#: [id number] Meropenem 1 gm In Sodium 50 50 Chloride 0.9% 50 ml @ 100 mls/hr IV Q12H [facility] Rx#: [id number] Pantoprazole 80 mg In 99.833 187.5 12.5 Sodium Chloride 0.9% 100 ml @ 10 mls/hr IV Q10H [facility] Rx#:[id number] Tube Feeding 240 100 Blood Product 500 Other 250 Output: Urine 600 600 Other: # Bowel Movements 0 Stool Characteristics Soft Liquid Brown Active Medications: Current Medications Acetaminophen (Tylenol) 650 mg PO Q4HR PRN PRN Reason: Pain (Mild) Stop: 04/20/17 12:01 Last Admin: 03/06/17 03:23 Dose: 650 mg Albuterol/Ipratropium (Duoneb Neb) 3 ml HHN Q4HRT PRN PRN Reason: Wheezing Stop: 04/27/17 19:59 Last Admin: 02/28/17 03:18 Dose: 3 ml Albuterol/Ipratropium (Duoneb Neb) 3 ml HHN [id number] PATRIA Stop: 04/27/17 19:59 Last Admin: 03/14/17 07:28 Dose: 3 ml Chlorhexidine Gluconate (Peridex) 15 ml MM 0800,1999 [facility] Stop: 04/28/17 19:59 Last Admin: 03/14/17 08:55 Dose: 15 ml Diltiazem HCl (Cardizem) 5 mg IVP Q4H PRN PRN Reason: HR > 120 Stop: 04/27/17 19:59 Last Admin: 02/27/17 04:59 Dose: 5 mg Docusate Sodium (Colace) 100 mg PO BID [facility] Stop: 04/20/17 16:59 Last Admin: 03/14/17 08:47 Dose: Not Given Furosemide (Lasix) 40 mg IVP BID [facility] Stop: 05/08/17 08:59 Last Admin: 03/14/17 08:53 Dose: 40 mg Pantoprazole Sodium 80 mg/ (Sodium Chloride) 100 mls @ 10 mls/hr IV Q10H [facility] Stop: 04/20/17 08:59 Last Admin: 03/14/17 08:54 Dose: 10 mls/hr Phenylephrine HCl 10 mg/ (Sodium Chloride) 250 mls @ 0 mls/hr IV TITR PATRIA; Per Protocol PRN Reason: Protocol Stop: 04/28/17 07:59 Norepinephrine Bitartrate 8 mg (/ Sodium Chloride) 258 mls @ 0 mls/hr IV TITR PATRIA; Per Protocol PRN Reason: Protocol Stop: 04/28/17 09:59 Last Titration: 03/10/17 09:17 Dose: 0 mcg/min, 0 mls/hr Meropenem 1 gm/ Sodium (Chloride) 50 mls @ 100 mls/hr IV Q12H [facility] Stop: 05/11/17 10:59 Last Admin: 03/14/17 10:45 Dose: 100 mls/hr Dextrose/Sodium Chloride (D5-0.45ns) 1,000 mls @ 30 mls/hr IV .Q24H [facility] Stop: 05/13/17 00:00 Last Infusion: 03/14/17 06:00 Dose: 30 mls/hr Insulin Aspart (Novolog Insulin Sliding Scale) 0 units SUBQ Q6H [facility]RIA PRN Reason: Protocol Stop: 05/03/17 00:00 Last Admin: 03/14/17 05:40 Dose: Not Given Metoclopramide HCl (Reglan) 5 mg IVP Q6HR [facility] Stop: 05/05/17 17:59 Last Admin: 03/14/17 05:20 Dose: 5 mg Metolazone (Zaroxolyn) 5 mg PO DAILY [facility] Stop: 05/10/17 13:14 Last Admin: 03/14/17 08:47 Dose: Not Given Mirtazapine (Remeron) 15 mg PO HS [facility]RIA PRN Reason: Protocol Stop: 04/26/17 20:59 Last Admin: 03/13/17 20:44 Dose: 15 mg Miscellaneous (Probiotic Screen) 1 ea PRN PRN PRN Reason: PROTOCOL Stop: 04/21/17 16:25 Miscellaneous (Communication Order) 1 ea MC PRN PATRIA Stop: 05/10/17 13:14 Morphine Sulfate (Morphine) 1 mg IVP Q4HR PRN PRN Reason: Severe Pain Stop: 05/04/17 14:13 Last Admin: 03/14/17 05:20 Dose: 1 mg Nitroglycerin (Nitrostat) 0.4 mg SL Q5MIN PRN PRN Reason: Chest Pain Stop: 04/20/17 12:01 Nystatin (Nystop) 100,000 units TP BID PRN PRN Reason: SKIN EXCORIATIONS Stop: 04/21/17 15:35 Last Admin: 03/08/17 06:00 Dose: 100,000 units Ondansetron HCl (Zofran) 4 mg IV Q6H PRN PRN Reason: Nausea Stop: 04/20/17 03:38 General: No acute distress HEENT: Atraumatic (on ETT/VENT), EOMI Neck: Supple, JVD, +2 carotid pulse wo bruit Cardiovascular: Regular rate, Normal S1, Normal S2 Lungs: Other (coarse rhonchi) Abdomen: Bowel sounds, Soft Extremities: Edema, Other ((+3) bipedal edema) Neurological: Sensation intact Skin: no Rash Psych/Mental Status: Mood NL - Procedures Procedures: Procedures Procedure Code Date INSERT EMERGENCY AIRWAY 71380 02/19/17 INSERTION OF ENDOTRACHEAL AIRWAY INTO [place], VIA OPENING [id number] 02/19/17 RESPIRATORY VENTILATION, GREATER THAN 96 CONSECUTIVE HOURS [id number] 02/19/17 VENT MGMT INPAT INIT DAY 25291 02/19/17 VENT MGMT INPAT SUBQ DAY 72674 02/19/17 Assessment/Plan - Problem List Patient Problems: All Active Problems Acute kidney failure (Acute) 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 Azotemia (Acute) R79.89 Bradycardia (Acute) R00.1 COPD (chronic obstructive pulmonary disease) (Acute) Cardiomegaly (Acute) I51.7 Chest pain (Acute) R07.9 Decubitus ulcer of buttock, 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 - Assessment Assessment: 71 YO FEMALE WITH ALLEGED GASTRIC OUTLET OBSTRUCTION EGD SHOWED GASTRITIS WITHOUT OBSTRUCTION WAS MICAELA NGT FEEDS AT LOW RATE SBFT NEG 1.CONT NGT FEEDS MICAELA 2.CONT SUPP CARE 3.MAY NEED PEG IF DESIRED BY FAMILY
--- NOTE | 2017-03-14 12:40 | General Progress Note ---
Subjective - Review of Systems Events since last encounter: on vent support in no distress Objective - Results Result Diagrams: 03/14/17 06:00 03/14/17 06:00 Recent Labs: Laboratory Last Values WBC 13.6 Th/cmm (4.8-10.8) H D 03/14/17 06:00 RBC 3.41 Mil/cmm (3.80-5.20) L 03/14/17 06:00 Hgb 10.1 gm/dL (12-16) L 03/14/17 06:00 Hct 30.2 % (41.0-60) L D 03/14/17 06:00 MCV 88.3 fl (81-100) 03/14/17 06:00 MCH 29.6 pg (27.0-31.0) 03/14/17 06:00 MCHC Differential 33.5 pg (28.0-36.0) 03/14/17 06:00 RDW 15.2 % (11.5-20.0) 03/14/17 06:00 Plt Count 117 Th/cmm (150-400) L D 03/14/17 06:00 MPV 8.3 fl 03/14/17 06:00 Neutrophils % 77.9 % (40.0-80.0) 03/14/17 06:00 Band Neutrophils % 5 % (0-10) 03/06/17 06:00 Lymphocytes % 11.5 % (20.0-50.0) L 03/14/17 06:00 Monocytes % 5.8 % (2.0-10.0) 03/14/17 06:00 Eosinophils % 4.8 % (0.0-5.0) 03/14/17 06:00 Basophils % 0.0 % (0.0-2.0) 03/14/17 06:00 Neutrophils (Manual) 85 % (40-80) H 03/06/17 06:00 Lymphocytes 4 % (20-50) L 03/06/17 06:00 Monocytes 3 % (2-10) 03/06/17 06:00 Eosinophils 3 % (0-5) 03/06/17 06:00 Metamyelocytes 1 % (0-0) H 02/18/17 23:35 Hypochromia 1+ 02/18/17 23:35 Platelet Estimate DECREASED PLATELETS (NORMAL) 03/06/17 06:00 Platelet Morphology (NORMAL) 03/04/17 08:00 Plt Count 117 Th/cmm (150-750) L D 03/14/17 06:00 PT 13.3 SECONDS (9.5-11.5) H 03/14/17 06:00 INR 1.26 (0.5-1.4) 03/14/17 06:00 PTT (Actin FS) 34.1 SECONDS (26.0-38.0) 03/14/17 06:00 Fibrinogen 252.0 mg/dL (200.0-400.0) 03/14/17 06:00 D-Dimer 1600 ng/mL (100-400) H 03/14/17 06:00 Specimen Source Arterial 03/11/17 09:40 Sample Site Right Radial 03/11/17 09:40 pH 7.29 (7.35-7.45) L 03/11/17 09:40 pCO2 44.0 mmHg (35.0-45.0) 03/11/17 09:40 pO2 66.0 mmHg (80.0-100.0) L 03/11/17 09:40 HCO3 20.6 mEq/L (20.0-26.0) 03/11/17 09:40 Base Excess -5.3 mEq/L (-3.0-3.0) L 03/11/17 09:40 O2 Saturation 90.0 % (92.0-100.0) L 03/11/17 09:40 Jorje Test YES 03/11/17 09:40 Vent Rate 4 03/11/17 09:40 Inspired O2 30 03/11/17 09:40 Tidal Volume 550 03/11/17 09:40 PEEP 5 03/11/17 09:40 Pressure (ins/psv/peep) 15 03/11/17 09:40 Critical Value E.HERNANDEZ 03/11/17 09:40 Sodium 140 mEq/L (136-145) 03/14/17 06:00 Potassium 3.4 mEq/L (3.5-5.1) L 03/14/17 06:00 Chloride 110 mEq/L (98-107) H 03/14/17 06:00 Carbon Dioxide 18.4 mEq/L (21.0-31.0) L 03/14/17 06:00 Anion Gap 15.0 (7.0-16.0) 03/14/17 06:00 BUN 44 mg/dL (7-25) H 03/14/17 06:00 Creatinine 1.7 mg/dL (0.6-1.2) H 03/14/17 06:00 Est GFR ( Amer) 38.3 ml/min (>90) 03/14/17 06:00 Est GFR (Non-Af Amer) 31.7 ml/min 03/14/17 06:00 BUN/Creatinine Ratio 25.9 03/14/17 06:00 Glucose 140 mg/dL (70-105) H 03/14/17 06:00 POC Glucose 124 MG/DL (70 - 105) H 03/14/17 05:30 Hemoglobin A1c % 5.8 % (4.0-6.0) 02/22/17 10:38 Whole Bld Lactic Acid 2.40 mmol/L (0.60-1.99) H* 02/27/17 15:04 Calcium 7.8 mg/dL (8.6-10.3) L 03/14/17 06:00 Phosphorus 2.5 mg/dL (2.5-5.0) 03/01/17 09:15 Magnesium 2.1 mg/dL (1.9-2.7) 03/01/17 09:15 Total Bilirubin 0.5 mg/dL (0.3-1.0) 03/11/17 08:15 Direct Bilirubin 0.09 mg/dL (0.0-0.2) 02/18/17 23:35 AST 19 U/L (13-39) 03/11/17 08:15 ALT 5 U/L (7-52) L 03/11/17 08:15 Alkaline Phosphatase 69 U/L (34-104) 03/11/17 08:15 Ammonia 38 umol/L (16-53) 03/01/17 17:28 B-Natriuretic Peptide 158.0 pg/mL (5.0-100.0) H 03/04/17 15:39 Total Protein 5.2 gm/dL (6.0-8.3) L 03/11/17 08:15 Albumin 2.9 gm/dL (3.7-5.3) L 01/12/18 08:15 Globulin 2.3 gm/dL 03/11/17 08:15 Albumin/Globulin Ratio 1.3 (1.0-1.8) 03/11/17 08:15 Amylase 36 U/L (29-103) 02/18/17 23:35 Lipase 10 U/L (11-82) L 02/18/17 23:35 Vitamin B12 860 pg/mL (232-1245) 02/26/17 04:45 Free T4 1.04 ng/dL (0.82-1.77) 02/25/17 04:50 Free T3 0.7 pg/mL (2.0-4.4) L 02/25/17 04:50 TSH 0.84 uIU/ml (0.34-5.60) 02/25/17 04:50 Total Cortisol 12.3 02/24/17 07:50 Urine Source [place] 02/27/17 15:00 Urine Color YELLOW 02/27/17 15:00 Urine Clarity CLOUDY (CLEAR) H 02/27/17 15:00 Urine pH 5.5 (4.6 - 8.0) 02/27/17 15:00 Ur Specific [place] <= 1.005 (1.005-1.030) 02/27/17 15:00 Urine Protein TRACE mg/dL (NEGATIVE) 02/27/17 15:00 Urine Glucose (UA) NEGATIVE mg/dL (NEGATIVE) 02/27/17 15:00 Urine Ketones NEGATIVE mg/dL (NEGATIVE) 02/27/17 15:00 Urine Blood LARGE (NEGATIVE) H 02/27/17 15:00 Urine Nitrate NEGATIVE (NEGATIVE) 02/27/17 15:00 Urine Bilirubin NEGATIVE (NEGATIVE) 02/27/17 15:00 Urine Urobilinogen 0.2 E.U./dL (0.2 - 1.0) 02/27/17 15:00 Ur Leukocyte Esterase LARGE (NEGATIVE) H 02/27/17 15:00 Urine RBC 10-25 /hpf (0-5) H 02/27/17 15:00 Urine WBC >100 /hpf (0-5) H 02/27/17 15:00 Ur Epithelial Cells MODERATE /lpf (FEW) 02/27/17 15:00 Urine Bacteria MODERATE /hpf (NONE SEEN) H 02/27/17 15:00 Urine Yeast MODERATE /hpf (NONE SEEN) H 02/20/17 16:15 Stool Occult Blood NEGATIVE (NEGATIVE) 03/11/17 17:25 Blood Type A POSITIVE 03/13/17 09:15 Antibody Screen NEGATIVE 03/13/17 09:15 Crossmatch See Detail 03/13/17 09:15 - Physical Exam Vitals and I&O: Vital Signs Temp 97 F 03/14/17 11:00 Pulse 85 03/14/17 11:04 Resp 12 03/14/17 11:00 BP 92/44 03/14/17 11:00 Pulse Ox 99 03/14/17 11:04 Intake & Output 03/13/17 03/14/17 03/14/17 18:59 06:59 18:59 Intake Total 1139.833 515.0 12.5 Output Total 600 600 Balance 539.833 -85.0 12.5 Weight (lbs) 124.993 kg 125.191 kg Intake: Intake, IV Amount 149.833 415.0 12.5 D5-0.45NS 1,000 ml @ 30 177.5 mls/hr IV .Q24H [facility] Rx#: [id number] Meropenem 1 gm In Sodium 50 50 Chloride 0.9% 50 ml @ 100 mls/hr IV Q12H [facility] Rx#: [id number] Pantoprazole 80 mg In 99.833 187.5 12.5 Sodium Chloride 0.9% 100 ml @ 10 mls/hr IV Q10H [facility] Rx#:[id number] Tube Feeding 240 100 Blood Product 500 Other 250 Output: Urine 600 600 Other: # Bowel Movements 0 Stool Characteristics Soft Liquid Brown Active Medications: Current Medications Acetaminophen (Tylenol) 650 mg PO Q4HR PRN PRN Reason: Pain (Mild) Stop: 04/20/17 12:01 Last Admin: 03/06/17 03:23 Dose: 650 mg Albuterol/Ipratropium (Duoneb Neb) 3 ml HHN Q4HRT PRN PRN Reason: Wheezing Stop: 04/27/17 19:59 Last Admin: 02/28/17 03:18 Dose: 3 ml Albuterol/Ipratropium (Duoneb Neb) 3 ml HHN [id number] PATRIA Stop: 04/27/17 19:59 Last Admin: 03/14/17 07:28 Dose: 3 ml Chlorhexidine Gluconate (Peridex) 15 ml MM 0800,1999 [facility] Stop: 04/28/17 19:59 Last Admin: 03/14/17 08:55 Dose: 15 ml Diltiazem HCl (Cardizem) 5 mg IVP Q4H PRN PRN Reason: HR > 120 Stop: 04/27/17 19:59 Last Admin: 02/27/17 04:59 Dose: 5 mg Docusate Sodium (Colace) 100 mg PO BID [facility] Stop: 04/20/17 16:59 Last Admin: 03/14/17 08:47 Dose: Not Given Furosemide (Lasix) 40 mg IVP BID [facility] Stop: 05/08/17 08:59 Last Admin: 03/14/17 08:53 Dose: 40 mg Pantoprazole Sodium 80 mg/ (Sodium Chloride) 100 mls @ 10 mls/hr IV Q10H [facility] Stop: 04/20/17 08:59 Last Admin: 03/14/17 08:54 Dose: 10 mls/hr Phenylephrine HCl 10 mg/ (Sodium Chloride) 250 mls @ 0 mls/hr IV TITR PATRIA; Per Protocol PRN Reason: Protocol Stop: 04/28/17 07:59 Norepinephrine Bitartrate 8 mg (/ Sodium Chloride) 258 mls @ 0 mls/hr IV TITR PATRIA; Per Protocol PRN Reason: Protocol Stop: 04/28/17 09:59 Last Titration: 03/10/17 09:17 Dose: 0 mcg/min, 0 mls/hr Meropenem 1 gm/ Sodium (Chloride) 50 mls @ 100 mls/hr IV Q12H [facility] Stop: 05/11/17 10:59 Last Admin: 03/14/17 10:45 Dose: 100 mls/hr Dextrose/Sodium Chloride (D5-0.45ns) 1,000 mls @ 30 mls/hr IV .Q24H [facility] Stop: 05/13/17 00:00 Last Infusion: 03/14/17 06:00 Dose: 30 mls/hr Insulin Aspart (Novolog Insulin Sliding Scale) 0 units SUBQ Q6H PATRIA PRN Reason: Protocol Stop: 05/03/17 00:00 Last Admin: 03/14/17 05:40 Dose: Not Given Metoclopramide HCl (Reglan) 5 mg IVP Q6HR [facility] Stop: 05/05/17 17:59 Last Admin: 03/14/17 05:20 Dose: 5 mg Metolazone (Zaroxolyn) 5 mg PO DAILY PATRIA Stop: 05/10/17 13:14 Last Admin: 03/14/17 08:47 Dose: Not Given Mirtazapine (Remeron) 15 mg PO HS PATRIA PRN Reason: Protocol Stop: 04/26/17 20:59 Last Admin: 03/13/17 20:44 Dose: 15 mg Miscellaneous (Probiotic Screen) 1 ea PRN PRN PRN Reason: PROTOCOL Stop: 04/21/17 16:25 Miscellaneous (Communication Order) 1 ea PRN PATRIA Stop: 05/10/17 13:14 Morphine Sulfate (Morphine) 1 mg IVP Q4HR PRN PRN Reason: Severe Pain Stop: 05/04/17 14:13 Last Admin: 03/14/17 05:20 Dose: 1 mg Nitroglycerin (Nitrostat) 0.4 mg SL Q5MIN PRN PRN Reason: Chest Pain Stop: 04/20/17 12:01 Nystatin (Nystop) 100,000 units TP BID PRN PRN Reason: SKIN EXCORIATIONS Stop: 04/21/17 15:35 Last Admin: 03/08/17 06:00 Dose: 100,000 units Ondansetron HCl (Zofran) 4 mg IV Q6H PRN PRN Reason: Nausea Stop: 04/20/17 03:38 General: No acute distress HEENT: Atraumatic (on ETT/VENT), EOMI Neck: Supple, JVD, +2 carotid pulse wo bruit Cardiovascular: Regular rate, Normal S1, Normal S2 Lungs: Other (coarse rhonchi) Abdomen: Bowel sounds, Soft Extremities: Edema, Other ((+3) bipedal edema) Neurological: Sensation intact Skin: no Rash Psych/Mental Status: Mood NL - Procedures Procedures: Procedures Procedure Code Date INSERT EMERGENCY AIRWAY 87993 02/19/17 INSERTION OF ENDOTRACHEAL AIRWAY INTO TRACHEA, VIA OPENING [id number] 02/19/17 RESPIRATORY VENTILATION, GREATER THAN 96 CONSECUTIVE HOURS [id number] 02/19/17 VENT MGMT INPAT INIT DAY 88256 02/19/17 VENT MGMT INPAT SUBQ DAY 41332 02/19/17 Assessment/Plan - Problem List Patient Problems: All Active Problems Acute kidney failure (Acute) 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 Azotemia (Acute) R79.89 Bradycardia (Acute) R00.1 COPD (chronic obstructive pulmonary disease) (Acute) Cardiomegaly (Acute) I51.7 Chest pain (Acute) R07.9 Decubitus ulcer of buttock, 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 - Plan Plan: tracheostomy monitor vitals/diet labs 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 Spoke with RN, pt consumed 50% of breakfast and only the soup of lunch today, not much appetite, no complain of N/V. Pt will be NPO from midnight for GI exam tommorrow. Current Diet Order/ Nutrition Support no added salt 4gm, CCHO, no eggs, banana and cereal in morning Pertinent Medications colace, lasix, novolog, levaquin, piperacillin Pertinent Labs 02/20 Na 137, K 4.5, Cl 104, BUN 55, Cr 1.6, Glucose 137, POC 126-199 since admit, Ca 8. 3 Nutritional Hx/Data Height 1.57 m Height (Calculated Centimeters) 157.5 Current Weight (lbs) 97.023 kg Weight (Calculated Kilograms) 97.0 Weight (Calculated Grams) 79162.4 [place] Body Weight 110 % [place] Body Weight 194 Body Mass Index (BMI) 39.1 Weight Status Obese GI Symptoms GI Symptoms None Last BM none Difficult in: None Skin Integrity/Comment: multiple maceration, abrasion to right/left medial thigh Current %PO Poor (25-49%) Estimated Nutritional Goals BEE in Kcals: Adj wt of IBW Calories/Kcals/Kg 27-32 Kcals Calculated Protein: Adj wt of IBW Protein g/k-1.2 Protein Calculated 62-74 Fluid: ml Nutritional Problem 1. Problem Problem inadequate PO intake Etiology poor appetite Signs/Symptoms: PO intake 25-50% Malnutrition Alert Protein-Calorie Malnutrition N/A Is there a minimum of two criteria No selected? Query Text:Check all the applicable criteria. A minimum of two criteria are recommended for diagnosis of either severe or non-severe malnutrition. Intervention/Recommendation Comments 1. Continue with current diet as ordered. 2. Monitor PO intake, GI symptons, wt, labs and skin integrity 3. F/U as high risk in 2-3 days, 02/23-02/24 Expected Outcomes/Goals Expected Outcomes/Goals 1. PO intake to meet at least 75% of nutritional needs. 2. Wt stability, skin to remain intact, labs to improve
[2017-03-14] MEDS: HYDROmorphone 2 mg/mL 1mL Vial IVP PRN ×2 (13:09→18:37)
--- NOTE | 2017-03-14 14:10 | General Progress Note ---
Subjective - Review of Systems Service Date: 03/14/17 Subjective: very awake, on vent Objective - Results Result Diagrams: 03/14/17 06:00 03/14/17 06:00 Recent Labs: Laboratory Last Values WBC 13.6 Th/cmm (4.8-10.8) H D 03/14/17 06:00 RBC 3.41 Mil/cmm (3.80-5.20) L 03/14/17 06:00 Hgb 10.1 gm/dL (12-16) L 03/14/17 06:00 Hct 30.2 % (41.0-60) L D 03/14/17 06:00 MCV 88.3 fl (81-100) 03/14/17 06:00 MCH 29.6 pg (27.0-31.0) 03/14/17 06:00 MCHC Differential 33.5 pg (28.0-36.0) 03/14/17 06:00 RDW 15.2 % (11.5-20.0) 03/14/17 06:00 Plt Count 117 Th/cmm (150-400) L D 03/14/17 06:00 MPV 8.3 fl 03/14/17 06:00 Neutrophils % 77.9 % (40.0-80.0) 03/14/17 06:00 Band Neutrophils % 5 % (0-10) 03/06/17 06:00 Lymphocytes % 11.5 % (20.0-50.0) L 03/14/17 06:00 Monocytes % 5.8 % (2.0-10.0) 03/14/17 06:00 Eosinophils % 4.8 % (0.0-5.0) 03/14/17 06:00 Basophils % 0.0 % (0.0-2.0) 03/14/17 06:00 Neutrophils (Manual) 85 % (40-80) H 03/06/17 06:00 Lymphocytes 4 % (20-50) L 03/06/17 06:00 Monocytes 3 % (2-10) 03/06/17 06:00 Eosinophils 3 % (0-5) 03/06/17 06:00 Metamyelocytes 1 % (0-0) H 02/18/17 23:35 Hypochromia 1+ 12/22/17 23:35 Platelet Estimate DECREASED PLATELETS (NORMAL) 03/06/17 06:00 Platelet Morphology (NORMAL) 03/04/17 08:00 Plt Count 117 Th/cmm (150-750) L D 03/14/17 06:00 PT 13.3 SECONDS (9.5-11.5) H 03/14/17 06:00 INR 1.26 (0.5-1.4) 03/14/17 06:00 PTT (Actin FS) 34.1 SECONDS (26.0-38.0) 03/14/17 06:00 Fibrinogen 252.0 mg/dL (200.0-400.0) 03/14/17 06:00 D-Dimer 1600 ng/mL (100-400) H 03/14/17 06:00 Specimen Source Arterial 03/11/17 09:40 Sample Site Right Radial 03/11/17 09:40 pH 7.29 (7.35-7.45) L 03/11/17 09:40 pCO2 44.0 mmHg (35.0-45.0) 03/11/17 09:40 pO2 66.0 mmHg (80.0-100.0) L 03/11/17 09:40 HCO3 20.6 mEq/L (20.0-26.0) 03/11/17 09:40 Base Excess -5.3 mEq/L (-3.0-3.0) L 03/11/17 09:40 O2 Saturation 90.0 % (92.0-100.0) L 03/11/17 09:40 Jorje Test YES 03/11/17 09:40 Vent Rate 4 03/11/17 09:40 Inspired O2 30 03/11/17 09:40 Tidal Volume 550 03/11/17 09:40 PEEP 5 03/11/17 09:40 Pressure (ins/psv/peep) 15 03/11/17 09:40 Critical Value E.HERNANDEZ 03/11/17 09:40 Sodium 140 mEq/L (136-145) 03/14/17 06:00 Potassium 3.4 mEq/L (3.5-5.1) L 03/14/17 06:00 Chloride 110 mEq/L (98-107) H 03/14/17 06:00 Carbon Dioxide 18.4 mEq/L (21.0-31.0) L 03/14/17 06:00 Anion Gap 15.0 (7.0-16.0) 03/14/17 06:00 BUN 44 mg/dL (7-25) H 03/14/17 06:00 Creatinine 1.7 mg/dL (0.6-1.2) H 03/14/17 06:00 Est GFR ( Amer) 38.3 ml/min (>90) 03/14/17 06:00 Est GFR (Non-Af Amer) 31.7 ml/min 03/14/17 06:00 BUN/Creatinine Ratio 25.9 03/14/17 06:00 Glucose 140 mg/dL (70-105) H 03/14/17 06:00 POC Glucose 185 MG/DL (70 - 105) H 03/14/17 12:28 Hemoglobin A1c % 5.8 % (4.0-6.0) 02/22/17 10:38 Whole Bld Lactic Acid 2.40 mmol/L (0.60-1.99) H* 02/27/17 15:04 Calcium 7.8 mg/dL (8.6-10.3) L 03/14/17 06:00 Phosphorus 2.5 mg/dL (2.5-5.0) 03/01/17 09:15 Magnesium 2.1 mg/dL (1.9-2.7) 03/01/17 09:15 Total Bilirubin 0.5 mg/dL (0.3-1.0) 03/11/17 08:15 Direct Bilirubin 0.09 mg/dL (0.0-0.2) 02/18/17 23:35 AST 19 U/L (13-39) 03/11/17 08:15 ALT 5 U/L (7-52) L 03/11/17 08:15 Alkaline Phosphatase 69 U/L (34-104) 03/11/17 08:15 Ammonia 38 umol/L (16-53) 03/01/17 17:28 B-Natriuretic Peptide 158.0 pg/mL (5.0-100.0) H 03/04/17 15:39 Total Protein 5.2 gm/dL (6.0-8.3) L 03/11/17 08:15 Albumin 2.9 gm/dL (3.7-5.3) L 03/11/17 08:15 Globulin 2.3 gm/dL 03/11/17 08:15 Albumin/Globulin Ratio 1.3 (1.0-1.8) 03/11/17 08:15 Amylase 36 U/L (29-103) 02/18/17 23:35 Lipase 10 U/L (11-82) L 02/18/17 23:35 Vitamin B12 860 pg/mL (232-1245) 02/26/17 04:45 Free T4 1.04 ng/dL (0.82-1.77) 02/25/17 04:50 Free T3 0.7 pg/mL (2.0-4.4) L 02/25/17 04:50 TSH 0.84 uIU/ml (0.34-5.60) 02/25/17 04:50 Total Cortisol 12.3 02/24/17 07:50 Urine Source [place] 02/27/17 15:00 Urine Color YELLOW 02/27/17 15:00 Urine Clarity CLOUDY (CLEAR) H 02/27/17 15:00 Urine pH 5.5 (4.6 - 8.0) 02/27/17 15:00 Ur Specific [place] <= 1.005 (1.005-1.030) 02/27/17 15:00 Urine Protein TRACE mg/dL (NEGATIVE) 02/27/17 15:00 Urine Glucose (UA) NEGATIVE mg/dL (NEGATIVE) 02/27/17 15:00 Urine Ketones NEGATIVE mg/dL (NEGATIVE) 02/27/17 15:00 Urine Blood LARGE (NEGATIVE) H 02/27/17 15:00 Urine Nitrate NEGATIVE (NEGATIVE) 02/27/17 15:00 Urine Bilirubin NEGATIVE (NEGATIVE) 02/27/17 15:00 Urine Urobilinogen 0.2 E.U./dL (0.2 - 1.0) 02/27/17 15:00 Ur Leukocyte Esterase LARGE (NEGATIVE) H 02/27/17 15:00 Urine RBC 10-25 /hpf (0-5) H 02/27/17 15:00 Urine WBC >100 /hpf (0-5) H 02/27/17 15:00 Ur Epithelial Cells MODERATE /lpf (FEW) 02/27/17 15:00 Urine Bacteria MODERATE /hpf (NONE SEEN) H 02/27/17 15:00 Urine Yeast MODERATE /hpf (NONE SEEN) H 02/20/17 16:15 Stool Occult Blood NEGATIVE (NEGATIVE) 03/11/17 17:25 Blood Type A POSITIVE 03/13/17 09:15 Antibody Screen NEGATIVE 03/13/17 09:15 Crossmatch See Detail 03/13/17 09:15 - Physical Exam Vitals and I&O: Vital Signs Temp 97 F 03/14/17 11:00 Pulse 84 03/14/17 13:25 Resp 18 03/14/17 13:00 BP 116/57 03/14/17 13:00 Pulse Ox 97 03/14/17 13:25 Intake & Output 03/13/17 03/14/17 03/14/17 18:59 06:59 18:59 Intake Total 1139.833 515.0 62.5 Output Total 600 600 Balance 539.833 -85.0 62.5 Weight (lbs) 124.993 kg 125.191 kg Intake: Intake, IV Amount 149.833 415.0 62.5 D5-0.45NS 1,000 ml @ 30 177.5 mls/hr IV .Q24H [facility] Rx#: [id number] Meropenem 1 gm In Sodium 50 50 50 Chloride 0.9% 50 ml @ 100 mls/hr IV Q12H [facility] Rx#: [id number] Pantoprazole 80 mg In 99.833 187.5 12.5 Sodium Chloride 0.9% 100 ml @ 10 mls/hr IV Q10H [facility] Rx#:[id number] Tube Feeding 240 100 Blood Product 500 Other 250 Output: Urine 600 600 Other: # Bowel Movements 0 Stool Characteristics Soft Liquid Brown Active Medications: Current Medications Acetaminophen (Tylenol) 650 mg PO Q4HR PRN PRN Reason: Pain (Mild) Stop: 04/20/17 12:01 Last Admin: 03/06/17 03:23 Dose: 650 mg Albuterol/Ipratropium (Duoneb Neb) 3 ml HHN Q4HRT PRN PRN Reason: Wheezing Stop: 04/27/17 19:59 Last Admin: 02/28/17 03:18 Dose: 3 ml Albuterol/Ipratropium (Duoneb Neb) 3 ml HHN [id number] PATRIA Stop: 04/27/17 19:59 Last Admin: 03/14/17 13:25 Dose: 3 ml Chlorhexidine Gluconate (Peridex) 15 ml MM 799,1999 [facility] Stop: 04/28/17 19:59 Last Admin: 03/14/17 08:55 Dose: 15 ml Diltiazem HCl (Cardizem) 5 mg IVP Q4H PRN PRN Reason: HR > 120 Stop: 04/27/17 19:59 Last Admin: 02/27/17 04:59 Dose: 5 mg Docusate Sodium (Colace) 100 mg PO BID PATRIA Stop: 04/20/17 16:59 Last Admin: 03/14/17 08:47 Dose: Not Given Furosemide (Lasix) 40 mg IVP BID [facility] Stop: 05/08/17 08:59 Last Admin: 03/14/17 08:53 Dose: 40 mg Hydromorphone HCl (Dilaudid) 1 mg IVP Q4HR PRN PRN Reason: Severe Pain Stop: 05/13/17 13:01 Last Admin: 03/14/17 13:09 Dose: 1 mg Pantoprazole Sodium 80 mg/ (Sodium Chloride) 100 mls @ 10 mls/hr IV Q10H [facility] Stop: 04/20/17 08:59 Last Admin: 03/14/17 08:54 Dose: 10 mls/hr Phenylephrine HCl 10 mg/ (Sodium Chloride) 250 mls @ 0 mls/hr IV TITR PATRIA; Per Protocol PRN Reason: Protocol Stop: 04/28/17 07:59 Norepinephrine Bitartrate 8 mg (/ Sodium Chloride) 258 mls @ 0 mls/hr IV TITR PATRIA; Per Protocol PRN Reason: Protocol Stop: 04/28/17 09:59 Last Titration: 03/10/17 09:17 Dose: 0 mcg/min, 0 mls/hr Meropenem 1 gm/ Sodium (Chloride) 50 mls @ 100 mls/hr IV Q12H [facility] Stop: 05/11/17 10:59 Last Infusion: 03/14/17 11:15 Dose: Infused Dextrose/Sodium Chloride (D5-0.45ns) 1,000 mls @ 30 mls/hr IV .Q24H [facility] Stop: 05/13/17 00:00 Last Infusion: 03/14/17 06:00 Dose: 30 mls/hr Insulin Aspart (Novolog Insulin Sliding Scale) 0 units SUBQ Q6H [facility] PRN Reason: Protocol Stop: 05/03/17 00:00 Last Admin: 03/14/17 13:09 Dose: 2 units Metoclopramide HCl (Reglan) 5 mg IVP Q6HR [facility] Stop: 05/05/17 17:59 Last Admin: 03/14/17 13:09 Dose: 5 mg Metolazone (Zaroxolyn) 5 mg PO DAILY [facility] Stop: 05/10/17 13:14 Last Admin: 03/14/17 08:47 Dose: Not Given Mirtazapine (Remeron) 15 mg PO HS PATRIA PRN Reason: Protocol Stop: 04/26/17 20:59 Last Admin: 03/13/17 20:44 Dose: 15 mg Miscellaneous (Probiotic Screen) 1 ea PRN PRN PRN Reason: PROTOCOL Stop: 04/21/17 16:25 Miscellaneous (Communication Order) 1 ea MC PRN [facility] Stop: 05/10/17 13:14 Morphine Sulfate (Morphine) 1 mg IVP Q4HR PRN PRN Reason: Severe Pain Stop: 05/04/17 14:13 Last Admin: 03/14/17 05:20 Dose: 1 mg Nitroglycerin (Nitrostat) 0.4 mg SL Q5MIN PRN PRN Reason: Chest Pain Stop: 04/20/17 12:01 Nystatin (Nystop) 100,000 units TP BID PRN PRN Reason: SKIN EXCORIATIONS Stop: 04/21/17 15:35 Last Admin: 03/08/17 06:00 Dose: 100,000 units Ondansetron HCl (Zofran) 4 mg IV Q6H PRN PRN Reason: Nausea Stop: 04/20/17 03:38 General: No acute distress HEENT: Atraumatic (on ETT/VENT), EOMI Neck: Supple, JVD, +2 carotid pulse wo bruit Cardiovascular: Regular rate, Normal S1, Normal S2 Lungs: Other (coarse rhonchi) Abdomen: Bowel sounds, Soft Extremities: Edema, Other ((+3) bipedal edema) Neurological: Sensation intact Skin: no Rash Psych/Mental Status: Mood NL - Procedures Procedures: Procedures Procedure Code Date INSERT EMERGENCY AIRWAY 65227 02/19/17 INSERTION OF ENDOTRACHEAL AIRWAY INTO [place]HE[place], VIA OPENING [id number] 02/19/17 RESPIRATORY VENTILATION, GREATER THAN 96 CONSECUTIVE HOURS [id number] 02/19/17 VENT MGMT INPAT INIT DAY 02/19/17 VENT MGMT INPAT SUBQ DAY 02/19/17 Assessment/Plan - Problem List Patient Problems: All Active Problems Acute kidney failure (Acute) 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 Azotemia (Acute) R79.89 Bradycardia (Acute) R00.1 COPD (chronic obstructive pulmonary disease) (Acute) Cardiomegaly (Acute) I51.7 Chest pain (Acute) R07.9 Decubitus ulcer of buttock, 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 - Assessment Assessment: SOHAIL on CKD Acute resp failure on vent 2nd CHF, HAP, possible SOFIE, Exacerbation COPD Shock Sepsis DJD Type 2 DM GERD SOFIE Hyponatremia S/p [place], Appe anasarca Thrombocytopenia Anemia of CD - Plan Plan: Lab - Result Diagrams 03/01/17 09:15 03/01/17 09:15 Current Medications Acetaminophen (Tylenol) 650 mg PO Q4HR PRN PRN Reason: Pain (Mild) Stop: 04/20/17 12:01 Last Admin: 02/21/17 09:54 Dose: 650 mg Acetaminophen/Hydrocodone Bitart (Pickerel 5mg/325mg) 1 tab PO Q6H PRN PRN Reason: PAIN Stop: 04/20/17 13:24 Albuterol/Ipratropium (Duoneb Neb) 3 ml HHN Q4HRT PRN PRN Reason: Wheezing Stop: 04/27/17 19:59 Last Admin: 02/28/17 03:18 Dose: 3 ml Albuterol/Ipratropium (Duoneb Neb) 3 ml HHN [id number] PATRIA Stop: 04/27/17 19:59 Last Admin: 03/01/17 13:49 Dose: 3 ml Aspirin (Ecotrin) 81 mg PO DAILY [facility] Stop: 04/21/17 08:59 Last Admin: 03/01/17 09:30 Dose: Not Given Chlorhexidine Gluconate (Peridex) 15 ml MM 0800,2000 [facility] Stop: 04/28/17 19:59 Last Admin: 03/01/17 08:30 Dose: 15 ml Diltiazem HCl (Cardizem) 5 mg IVP Q4H PRN PRN Reason: HR > 120 Stop: 04/27/17 19:59 Last Admin: 02/27/17 04:59 Dose: 5 mg Docusate Sodium (Colace) 100 mg PO BID [facility] Stop: 04/20/17 16:59 Last Admin: 03/01/17 09:31 Dose: Not Given Fluconazole (Diflucan) 100 mg PO DAILY [facility] Stop: 03/08/17 08:59 Last Admin: 03/01/17 09:31 Dose: Not Given Furosemide (Lasix) 40 mg PO DAILY [facility] Stop: 04/21/17 08:59 Last Admin: 03/01/17 09:31 Dose: Not Given Pantoprazole Sodium 80 mg/ (Sodium Chloride) 100 mls @ 10 mls/hr IV Q10H [facility] Stop: 04/20/17 08:59 Last Admin: 03/01/17 09:31 Dose: 10 mls/hr Linezolid (Zyvox) 600 mg in 300 mls @ 300 mls/hr IV Q12HR [facility] Stop: 04/22/17 20:59 Last Infusion: 03/01/17 10:00 Dose: Infused Levofloxacin (Levaquin Pb) 250 mg in 50 mls @ 50 mls/hr IV Q24HR [facility] Stop: 04/23/17 20:59 Last Infusion: 02/28/17 21:17 Dose: Infused Phenylephrine HCl 10 mg/ (Sodium Chloride) 250 mls @ 0 mls/hr IV TITR PATRIA; Per Protocol PRN Reason: Protocol Stop: 04/28/17 07:59 Norepinephrine Bitartrate 8 mg (/ Sodium Chloride) 258 mls @ 0 mls/hr IV TITR PATRIA; Per Protocol PRN Reason: Protocol Stop: 04/28/17 09:59 Last Titration: 03/01/17 06:31 Dose: 6 mcg/min, 11.61 mls/hr Meropenem 1 gm/ Dextrose 100 mls @ 100 mls/hr IV Q12H [facility] Stop: 04/28/17 12:29 Last Infusion: 03/01/17 13:00 Dose: Infused Potassium Chloride/Dextrose/Sod Cl (D5-0.9ns W/Kcl 20meq) 1,000 mls @ 75 mls/ hr IV .[id number] [facility] Stop: 04/30/17 14:41 Insulin Aspart (Novolog Insulin Sliding Scale) 0 units SUBQ ACHS [facility]RIA PRN Reason: Protocol Stop: 04/20/17 16:29 Last Admin: 03/01/17 12:01 Dose: 4 units Mirtazapine (Remeron) 15 mg PO HS [facility]RIA PRN Reason: Protocol Stop: 04/26/17 20:59 Last Admin: 02/28/17 21:23 Dose: 15 mg Miscellaneous (Probiotic Screen) 1 ea MC PRN PRN PRN Reason: PROTOCOL Stop: 04/21/17 16:25 Morphine Sulfate (Morphine) 1 mg IVP Q3H PRN PRN Reason: Pain (Moderate) Stop: 04/20/17 01:59 Last Admin: 03/01/17 09:28 Dose: 1 mg Nitroglycerin (Nitrostat) 0.4 mg SL Q5MIN PRN PRN Reason: Chest Pain Stop: 04/20/17 12:01 Nystatin (Nystop) 100,000 units TP BID PRN PRN Reason: SKIN EXCORIATIONS Stop: 04/21/17 15:35 Last Admin: 02/21/17 11:46 Dose: 100,000 units Ondansetron HCl (Zofran) 4 mg IV Q6H PRN PRN Reason: Nausea Stop: 04/20/17 03:38 Spironolactone (Aldactone) 50 mg PO BID [facility] Stop: 04/27/17 08:59 Last Admin: 03/01/17 09:29 Dose: Not Given Lab - Result Diagrams 03/14/17 06:00 03/14/17 06:00 Na up to 140 kidney fnc remain stable w/ BUN/Cr of 44/1.7 UOP improved to nam 2L CXR still w/ CHF, continue Lasix drip, add metolazone DC spironolactone f/u electorlytes, cbc, CXR DC ivf due to worsening anasarca, chf add albumin initiate [id number] Plts up to 117 For transfusion of PRBC, FFP Peptamen @ 20 ml/hr Nutritional Asmnt/Malnutr-PDOC - Dietary Evaluation Malnutrition Findings (Please click <Entered> for more info): Nutritional Asmnt/Malnutrition Start: 02/21/17 18: 20 Text: Status: Complete Freq: Document 02/21/17 18:21 LCELLEN (Rec: 02/21/17 18:32 LCELLEN ALEXANDER-[email or web address]) Nutritional Asmnt/Malnutrition Patient General Information Nutritional Screening High Risk Consult Diagnosis gastric outlet obstruction Pertinent Medical Hx/Surgical Hx HTN, OA, DM, GERD Subjective Information Pt seen sleeping at the time of visit, attempted x 2. Spoke with RN, pt consumed 50% of breakfast and only the soup of lunch today, not much appetite, no complain of N/V. Pt will be NPO from midnight for GI exam tommorrow. Current Diet Order/ Nutrition Support no added salt 4gm, CCHO, no eggs, banana and cereal in morning Pertinent Medications colace, lasix, novolog, levaquin, piperacillin Pertinent Labs 02/20 Na 137, K 4.5, Cl 104, BUN 55, Cr 1.6, Glucose 137, POC 126-199 since admit, Ca 8. 3 Nutritional Hx/Data Height 1.57 m Height (Calculated Centimeters) 157.5 Current Weight (lbs) 97.023 kg Weight (Calculated Kilograms) 97.0 Weight (Calculated Grams) 43757.4 [place] Body Weight 110 % [place] Body Weight 194 Body Mass Index (BMI) 39.1 Weight Status Obese GI Symptoms GI Symptoms None Last BM none Difficult in: None Skin Integrity/Comment: multiple maceration, abrasion to right/left medial thigh Current %PO Poor (25-49%) Estimated Nutritional Goals BEE in Kcals: Adj wt of IBW Calories/Kcals/Kg 27-32 Kcals Calculated Protein: Adj wt of IBW Protein g/k-1.2 Protein Calculated 62-74 Fluid: ml Nutritional Problem 1. Problem Problem inadequate PO intake Etiology poor appetite Signs/Symptoms: PO intake 25-50% Malnutrition Alert Protein-Calorie Malnutrition N/A Is there a minimum of two criteria No selected? Query Text:Check all the applicable criteria. A minimum of two criteria are recommended for diagnosis of either severe or non-severe malnutrition. Intervention/Recommendation Comments 1. Continue with current diet as ordered. 2. Monitor PO intake, GI symptons, wt, labs and skin integrity 3. F/U as high risk in 2-3 days, 02/23-02/24 Expected Outcomes/Goals Expected Outcomes/Goals 1. PO intake to meet at least 75% of nutritional needs. 2. Wt stability, skin to remain intact, labs to improve
[2017-03-14] MEDS: Pantoprazole 40 mg/Packet PO SCH (15:29)
--- NOTE | 2017-03-14 15:56 | Infectious Disease Prog Note ---
Infectious Disease Subjective - Review of Systems Service Date: 03/14/17 Subjective: Remains on vent intubated orally. on the ventilator support. Infectious Disease Objective - Results Result Diagrams: 03/14/17 06:00 03/14/17 06:00 Recent Labs: Laboratory Last Values WBC 13.6 Th/cmm (4.8-10.8) H D 03/14/17 06:00 RBC 3.41 Mil/cmm (3.80-5.20) L 03/14/17 06:00 Hgb 10.1 gm/dL (12-16) L 03/14/17 06:00 Hct 30.2 % (41.0-60) L D 03/14/17 06:00 MCV 88.3 fl (81-100) 03/14/17 06:00 MCH 29.6 pg (27.0-31.0) 03/14/17 06:00 MCHC Differential 33.5 pg (28.0-36.0) 03/14/17 06:00 RDW 15.2 % (11.5-20.0) 03/14/17 06:00 Plt Count 117 Th/cmm (150-400) L D 03/14/17 06:00 MPV 8.3 fl 03/14/17 06:00 Neutrophils % 77.9 % (40.0-80.0) 03/14/17 06:00 Band Neutrophils % 5 % (0-10) 03/06/17 06:00 Lymphocytes % 11.5 % (20.0-50.0) L 03/14/17 06:00 Monocytes % 5.8 % (2.0-10.0) 03/14/17 06:00 Eosinophils % 4.8 % (0.0-5.0) 03/14/17 06:00 Basophils % 0.0 % (0.0-2.0) 03/14/17 06:00 Neutrophils (Manual) 85 % (40-80) H 03/06/17 06:00 Lymphocytes 4 % (20-50) L 03/06/17 06:00 Monocytes 3 % (2-10) 03/06/17 06:00 Eosinophils 3 % (0-5) 03/06/17 06:00 Metamyelocytes 1 % (0-0) H 02/18/17 23:35 Hypochromia 1+ 12/22/17 23:35 Platelet Estimate DECREASED PLATELETS (NORMAL) 03/06/17 06:00 Platelet Morphology (NORMAL) 03/04/17 08:00 Plt Count 117 Th/cmm (150-750) L D 03/14/17 06:00 PT 13.3 SECONDS (9.5-11.5) H 03/14/17 06:00 INR 1.26 (0.5-1.4) 03/14/17 06:00 PTT (Actin FS) 34.1 SECONDS (26.0-38.0) 03/14/17 06:00 Fibrinogen 252.0 mg/dL (200.0-400.0) 03/14/17 06:00 D-Dimer 1600 ng/mL (100-400) H 03/14/17 06:00 Specimen Source Arterial 03/11/17 09:40 Sample Site Right Radial 03/11/17 09:40 pH 7.29 (7.35-7.45) L 03/11/17 09:40 pCO2 44.0 mmHg (35.0-45.0) 03/11/17 09:40 pO2 66.0 mmHg (80.0-100.0) L 03/11/17 09:40 HCO3 20.6 mEq/L (20.0-26.0) 03/11/17 09:40 Base Excess -5.3 mEq/L (-3.0-3.0) L 03/11/17 09:40 O2 Saturation 90.0 % (92.0-100.0) L 03/11/17 09:40 Jorje Test YES 03/11/17 09:40 Vent Rate 4 03/11/17 09:40 Inspired O2 30 03/11/17 09:40 Tidal Volume 550 03/11/17 09:40 PEEP 5 03/11/17 09:40 Pressure (ins/psv/peep) 15 03/11/17 09:40 Critical Value E.HERNANDEZ 03/11/17 09:40 Sodium 140 mEq/L (136-145) 03/14/17 06:00 Potassium 3.4 mEq/L (3.5-5.1) L 03/14/17 06:00 Chloride 110 mEq/L (98-107) H 03/14/17 06:00 Carbon Dioxide 18.4 mEq/L (21.0-31.0) L 03/14/17 06:00 Anion Gap 15.0 (7.0-16.0) 03/14/17 06:00 BUN 44 mg/dL (7-25) H 03/14/17 06:00 Creatinine 1.7 mg/dL (0.6-1.2) H 03/14/17 06:00 Est GFR ( Amer) 38.3 ml/min (>90) 03/14/17 06:00 Est GFR (Non-Af Amer) 31.7 ml/min 03/14/17 06:00 BUN/Creatinine Ratio 25.9 03/14/17 06:00 Glucose 140 mg/dL (70-105) H 03/14/17 06:00 POC Glucose 185 MG/DL (70 - 105) H 03/14/17 12:28 Hemoglobin A1c % 5.8 % (4.0-6.0) 02/22/17 10:38 Whole Bld Lactic Acid 2.40 mmol/L (0.60-1.99) H* 02/27/17 15:04 Calcium 7.8 mg/dL (8.6-10.3) L 03/14/17 06:00 Phosphorus 2.5 mg/dL (2.5-5.0) 03/01/17 09:15 Magnesium 2.1 mg/dL (1.9-2.7) 03/01/17 09:15 Total Bilirubin 0.5 mg/dL (0.3-1.0) 03/11/17 08:15 Direct Bilirubin 0.09 mg/dL (0.0-0.2) 02/18/17 23:35 AST 19 U/L (13-39) 03/11/17 08:15 ALT 5 U/L (7-52) L 03/11/17 08:15 Alkaline Phosphatase 69 U/L (34-104) 03/11/17 08:15 Ammonia 38 umol/L (16-53) 03/01/17 17:28 B-Natriuretic Peptide 158.0 pg/mL (5.0-100.0) H 03/04/17 15:39 Total Protein 5.2 gm/dL (6.0-8.3) L 03/11/17 08:15 Albumin 2.9 gm/dL (3.7-5.3) L 03/11/17 08:15 Globulin 2.3 gm/dL 03/11/17 08:15 Albumin/Globulin Ratio 1.3 (1.0-1.8) 03/11/17 08:15 Amylase 36 U/L (29-103) 02/18/17 23:35 Lipase 10 U/L (11-82) L 02/18/17 23:35 Vitamin B12 860 pg/mL (232-1245) 02/26/17 04:45 Free T4 1.04 ng/dL (0.82-1.77) 02/25/17 04:50 Free T3 0.7 pg/mL (2.0-4.4) L 02/25/17 04:50 TSH 0.84 uIU/ml (0.34-5.60) 02/25/17 04:50 Total Cortisol 12.3 02/24/17 07:50 Urine Source [place] 02/27/17 15:00 Urine Color YELLOW 02/27/17 15:00 Urine Clarity CLOUDY (CLEAR) H 02/27/17 15:00 Urine pH 5.5 (4.6 - 8.0) 02/27/17 15:00 Ur Specific [place] <= 1.005 (1.005-1.030) 02/27/17 15:00 Urine Protein TRACE mg/dL (NEGATIVE) 02/27/17 15:00 Urine Glucose (UA) NEGATIVE mg/dL (NEGATIVE) 02/27/17 15:00 Urine Ketones NEGATIVE mg/dL (NEGATIVE) 02/27/17 15:00 Urine Blood LARGE (NEGATIVE) H 02/27/17 15:00 Urine Nitrate NEGATIVE (NEGATIVE) 02/27/17 15:00 Urine Bilirubin NEGATIVE (NEGATIVE) 02/27/17 15:00 Urine Urobilinogen 0.2 E.U./dL (0.2 - 1.0) 02/27/17 15:00 Ur Leukocyte Esterase LARGE (NEGATIVE) H 02/27/17 15:00 Urine RBC 10-25 /hpf (0-5) H 02/27/17 15:00 Urine WBC >100 /hpf (0-5) H 02/27/17 15:00 Ur Epithelial Cells MODERATE /lpf (FEW) 02/27/17 15:00 Urine Bacteria MODERATE /hpf (NONE SEEN) H 02/27/17 15:00 Urine Yeast MODERATE /hpf (NONE SEEN) H 02/20/17 16:15 Stool Occult Blood NEGATIVE (NEGATIVE) 03/11/17 17:25 Blood Type A POSITIVE 03/13/17 09:15 Antibody Screen NEGATIVE 03/13/17 09:15 Crossmatch See Detail 03/13/17 09:15 - Physical Exam Vitals and I&O: Vital Signs Temp 97 F 03/14/17 11:00 Pulse 78 03/14/17 15:09 Resp 18 03/14/17 13:00 BP 104/62 03/14/17 15:27 Pulse Ox 99 03/14/17 15:09 Intake & Output 03/13/17 03/14/17 03/14/17 18:59 06:59 18:59 Intake Total 1139.833 515.0 62.5 Output Total 600 600 Balance 539.833 -85.0 62.5 Weight (lbs) 124.993 kg 125.191 kg Intake: Intake, IV Amount 149.833 415.0 62.5 D5-0.45NS 1,000 ml @ 30 177.5 mls/hr IV .Q24H [facility] Rx#: [id number] Meropenem 1 gm In Sodium 50 50 50 Chloride 0.9% 50 ml @ 100 mls/hr IV Q12H [facility] Rx#: [id number] Pantoprazole 80 mg In 99.833 187.5 12.5 Sodium Chloride 0.9% 100 ml @ 10 mls/hr IV Q10H [facility] Rx#:[id number] Tube Feeding 240 100 Blood Product 500 Other 250 Output: Urine 600 600 Other: # Bowel Movements 0 Stool Characteristics Soft Liquid Brown Active Medications: Current Medications Acetaminophen (Tylenol) 650 mg PO Q4HR PRN PRN Reason: Pain (Mild) Stop: 04/20/17 12:01 Last Admin: 03/06/17 03:23 Dose: 650 mg Albuterol/Ipratropium (Duoneb Neb) 3 ml HHN Q4HRT PRN PRN Reason: Wheezing Stop: 04/27/17 19:59 Last Admin: 02/28/17 03:18 Dose: 3 ml Albuterol/Ipratropium (Duoneb Neb) 3 ml HHN [id number] [facility] Stop: 04/27/17 19:59 Last Admin: 03/14/17 13:25 Dose: 3 ml Chlorhexidine Gluconate (Peridex) 15 ml MM 0800,2000 [facility] Stop: 04/28/17 19:59 Last Admin: 03/14/17 08:55 Dose: 15 ml Diltiazem HCl (Cardizem) 5 mg IVP Q4H PRN PRN Reason: HR > 120 Stop: 04/27/17 19:59 Last Admin: 02/27/17 04:59 Dose: 5 mg Docusate Sodium (Colace) 100 mg PO BID [facility] Stop: 04/20/17 16:59 Last Admin: 03/14/17 08:47 Dose: Not Given Hydromorphone HCl (Dilaudid) 1 mg IVP Q4HR PRN PRN Reason: Severe Pain Stop: 05/13/17 13:01 Last Admin: 03/14/17 13:09 Dose: 1 mg Phenylephrine HCl 10 mg/ (Sodium Chloride) 250 mls @ 0 mls/hr IV TITR [facility]; Per Protocol PRN Reason: Protocol Stop: 04/28/17 07:59 Norepinephrine Bitartrate 8 mg (/ Sodium Chloride) 258 mls @ 0 mls/hr IV TITR [facility]; Per Protocol PRN Reason: Protocol Stop: 04/28/17 09:59 Last Titration: 03/10/17 09:17 Dose: 0 mcg/min, 0 mls/hr Meropenem 1 gm/ Sodium (Chloride) 50 mls @ 100 mls/hr IV Q12H [facility] Stop: 05/11/17 10:59 Last Infusion: 03/14/17 11:15 Dose: Infused Furosemide 100 mg/ Sodium (Chloride) 50 mls @ 2.5 mls/hr IV TITR [facility] Stop: 05/13/17 14:29 Last Admin: 03/14/17 15:27 Dose: 2.5 mls/hr Insulin Aspart (Novolog Insulin Sliding Scale) 0 units SUBQ Q6H [facility] PRN Reason: Protocol Stop: 05/03/17 00:00 Last Admin: 03/14/17 13:09 Dose: 2 units Metoclopramide HCl (Reglan) 5 mg IVP Q6HR [facility] Stop: 05/05/17 17:59 Last Admin: 03/14/17 13:09 Dose: 5 mg Metolazone (Zaroxolyn) 5 mg PO DAILY [facility] Stop: 05/10/17 13:14 Last Admin: 03/14/17 08:47 Dose: Not Given Mirtazapine (Remeron) 15 mg PO HS [facility] PRN Reason: Protocol Stop: 04/26/17 20:59 Last Admin: 03/13/17 20:44 Dose: 15 mg Miscellaneous (Probiotic Screen) 1 ea PRN PRN PRN Reason: PROTOCOL Stop: 04/21/17 16:25 Miscellaneous (Communication Order) 1 ea PRN [facility] Stop: 05/10/17 13:14 Morphine Sulfate (Morphine) 1 mg IVP Q4HR PRN PRN Reason: Severe Pain Stop: 05/04/17 14:13 Last Admin: 03/14/17 05:20 Dose: 1 mg Nitroglycerin (Nitrostat) 0.4 mg SL Q5MIN PRN PRN Reason: Chest Pain Stop: 04/20/17 12:01 Nystatin (Nystop) 100,000 units TP BID PRN PRN Reason: SKIN EXCORIATIONS Stop: 04/21/17 15:35 Last Admin: 03/08/17 06:00 Dose: 100,000 units Ondansetron HCl (Zofran) 4 mg IV Q6H PRN PRN Reason: Nausea Stop: 04/20/17 03:38 Pantoprazole Sodium (Protonix) 40 mg PO DAILY [facility] Stop: 05/13/17 14:14 Last Admin: 03/14/17 15:29 Dose: 40 mg General: no acute distress, well developed, well nourished HEENT: atraumatic, normocephalic, PERRLA, EOMI Neck: supple, no thyromegaly Cardiovascular: S1S2, regular Lungs: clear to auscultation bilaterally, clear to percussion Abdomen: soft, no tender, no distended, no mass Extremities: edema, no cyanosis, no clubbing Neurological: awake, alert Skin: intact - Procedures Procedures: Procedures Procedure Code Date INSERT EMERGENCY AIRWAY 42348 02/19/17 INSERTION OF ENDOTRACHEAL AIRWAY INTO TRACHEA, VIA OPENING [id number] 02/19/17 RESPIRATORY VENTILATION, GREATER THAN 96 CONSECUTIVE HOURS [id number] 02/19/17 VENT MGMT INPAT INIT DAY 02/19/17 VENT MGMT INPAT SUBQ DAY [id number] Infectious Disease Assmt/Plan - Problem List Patient Problems: All Active Problems Acute kidney failure (Acute) 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 Sepsis. 2. Pneumonia. 3. UTI, Candiduria. 4. Renal failure. 5. Hypotension, improving 6. VDRF. 7. Thrombocytopenia. DIC - Plan Plan: Discontinue meropenem. Nutritional Asmnt/Malnutr-PDOC - Dietary Evaluation Malnutrition Findings (Please click <Entered> for more info): Nutritional Asmnt/Malnutrition Start: 02/21/17 18: 20 Text: Status: Complete Freq: Document 02/21/17 18:21 LCHENG (Rec: 02/21/17 18:32 LCHENG [id number]) Nutritional Asmnt/Malnutrition Patient General Information Nutritional Screening High Risk Consult Diagnosis gastric outlet obstruction Pertinent Medical Hx/Surgical Hx HTN, OA, DM, GERD Subjective Information Pt seen sleeping at the time of visit, attempted x 2. Spoke with RN, pt consumed 50% of breakfast and only the soup of lunch today, not much appetite, no complain of N/V. Pt will be NPO from midnight for GI exam tommorrow. Current Diet Order/ Nutrition Support no added salt 4gm, CCHO, no eggs, banana and cereal in morning Pertinent Medications colace, lasix, novolog, levaquin, piperacillin Pertinent Labs 02/20 Na 137, K 4.5, Cl 104, BUN 55, Cr 1.6, Glucose 137, POC 126-199 since admit, Ca 8. 3 Nutritional Hx/Data Height 1.57 m Height (Calculated Centimeters) 157.5 Current Weight (lbs) 97.023 kg Weight (Calculated Kilograms) 97.0 Weight (Calculated Grams) 19880.4 [place] Body Weight 110 % [place] Body Weight 194 Body Mass Index (BMI) 39.1 Weight Status Obese GI Symptoms GI Symptoms None Last BM none Difficult in: None Skin Integrity/Comment: multiple maceration, abrasion to right/left medial thigh Current %PO Poor (25-49%) Estimated Nutritional Goals BEE in Kcals: Adj wt of IBW Calories/Kcals/Kg 27-32 Kcals Calculated Protein: Adj wt of IBW Protein g/k-1.2 Protein Calculated 62-74 Fluid: ml Nutritional Problem 1. Problem Problem inadequate PO intake Etiology poor appetite Signs/Symptoms: PO intake 25-50% Malnutrition Alert Protein-Calorie Malnutrition N/A Is there a minimum of two criteria No selected? Query Text:Check all the applicable criteria. A minimum of two criteria are recommended for diagnosis of either severe or non-severe malnutrition. Intervention/Recommendation Comments 1. Continue with current diet as ordered. 2. Monitor PO intake, GI symptons, wt, labs and skin integrity 3. F/U as high risk in 2-3 days, 02/23-02/24 Expected Outcomes/Goals Expected Outcomes/Goals 1. PO intake to meet at least 75% of nutritional needs. 2. Wt stability, skin to remain intact, labs to improve
[2017-03-15] MEDS: INSULIN ASPART SLIDING SCALE 100 UNITS/ML UNIT SUBQ SCH ×4 (00:16→17:42)
[2017-03-15] MEDS: Metoclopramide 5 mg/mL 2mL Vial IVP SCH ×4 (00:19→17:41)
[2017-03-15] MEDS: Morphine Sulfate 2 mg/mL 1mL Syr IVP PRN ×2 (05:36→17:27)
[2017-03-15 06:43] LABS: % BASOPHILS 0.6 % (0.0-2.0); % EOSINOPHILS 5.5 % (0.0-5.0); % LYMPHOCYTES 9.3 % (20.0-50.0); % MONOCYTES 5.1 % (2.0-10.0); % NEUTROPHILS 79.5 % (40.0-80.0); BASOPHILE ABSOLUTE 0.1 Th/cumm (0-0.2); EOSINOPHILE ABSOLUTE 0.7 Th/cmm (0.1-0.4); HEMATOCRIT 30.2 % (41.0-60); HEMOGLOBIN 10.5 gm/dL (12-16); LYMPHOCYTE ABSOLUTE 1.3 Th/cmm (1.5-3.0); MEAN CELL VOLUME 87.6 fl (81-100); MEAN CORPUSCULAR HEMOGLOBIN 30.4 pg (27.0-31.0); MEAN CORPUSCULAR HGB CONC 34.7 pg (28.0-36.0); MEAN PLATELET VOLUME 7.8 fl; MONOCYTE ABSOLUTE 0.7 Th/cmm (0.3-1.0); NEUTROPHILE ABSOLUTE 10.7 Th/cmm (1.8-8.0); RED BLOOD COUNT 3.45 Mil/cmm (3.80-5.20); RED CELL DISTRIBUTION WIDTH 15.3 % (11.5-20.0)
[2017-03-15 06:46] LABS: WHITE BLOOD COUNT 13.5 Th/cmm (4.8-10.8)
[2017-03-15 06:47] LABS: PLATELET COUNT 176 Th/cmm (150-400)
[2017-03-15 06:54] LABS: INR 1.25 (0.5-1.4); PROTHROMBIN TIME (TEST) 13.1 SECONDS (9.5-11.5)
[2017-03-15 06:57] LABS: ANION GAP 14.4 (7.0-16.0); CARBON DIOXIDE 17.7 mEq/L (21.0-31.0); CREATININE - SERUM 1.6 mg/dL (0.6-1.2); GFR AFRICAN-AMERICAN 41.1 ml/min (>90); POTASSIUM SERUM 3.1 mEq/L (3.5-5.1)
[2017-03-15] MEDS: Albuterol/Ipratropium Neb 3 ML AERS HHN SCH ×3 (07:47→19:27)
[2017-03-15] MEDS: Metolazone 5 MG TAB PO SCH (08:53)
[2017-03-15] MEDS: Pantoprazole 40 mg/Packet PO SCH (08:53)
[2017-03-15] MEDS: Chlorhexidine Gluconate 0.12% 15mL Mouthwash MM SCH ×2 (08:54→20:23)
[2017-03-15] MEDS: Multivitamin w/ Minerals Tab PO SCH (08:54)
[2017-03-15] MEDS ORDERED: Potassium Chloride Elixir 20 mEq /15 mL UDC NG ONE (09:00)
--- NOTE | 2017-03-15 10:00 | GI Progress Note ---
Subjective - Review of Systems Service Date: 03/15/17 Subjective: Alert to stimulation, tracheostomy in place Objective - Results Result Diagrams: 03/15/17 06:00 03/15/17 06:00 Recent Labs: Laboratory Last Values WBC 13.5 Th/cmm (4.8-10.8) H 03/15/17 06:00 RBC 3.45 Mil/cmm (3.80-5.20) L 03/15/17 06:00 Hgb 10.5 gm/dL (12-16) L 03/15/17 06:00 Hct 30.2 % (41.0-60) L 03/15/17 06:00 MCV 87.6 fl (81-100) 03/15/17 06:00 MCH 30.4 pg (27.0-31.0) 03/15/17 06:00 MCHC Differential 34.7 pg (28.0-36.0) 03/15/17 06:00 RDW 15.3 % (11.5-20.0) 03/15/17 06:00 Plt Count 176 Th/cmm (150-400) D 03/15/17 06:00 MPV 7.8 fl 03/15/17 06:00 Neutrophils % 79.5 % (40.0-80.0) 03/15/17 06:00 Band Neutrophils % 5 % (0-10) 03/06/17 06:00 Lymphocytes % 9.3 % (20.0-50.0) L 03/15/17 06:00 Monocytes % 5.1 % (2.0-10.0) 03/15/17 06:00 Eosinophils % 5.5 % (0.0-5.0) H 03/15/17 06:00 Basophils % 0.6 % (0.0-2.0) 03/15/17 06:00 Neutrophils (Manual) 85 % (40-80) H 03/06/17 06:00 Lymphocytes 4 % (20-50) L 03/06/17 06:00 Monocytes 3 % (2-10) 03/06/17 06:00 Eosinophils 3 % (0-5) 03/06/17 06:00 Metamyelocytes 1 % (0-0) H 02/18/17 23:35 Hypochromia 1+ 02/18/17 23:35 Platelet Estimate DECREASED PLATELETS (NORMAL) 03/06/17 06:00 Platelet Morphology (NORMAL) 03/04/17 08:00 Plt Count 176 Th/cmm (150-750) D 03/15/17 06:00 PT 13.1 SECONDS (9.5-11.5) H 03/15/17 06:00 INR 1.25 (0.5-1.4) 03/15/17 06:00 PTT (Actin FS) 25.4 SECONDS (26.0-38.0) L 03/15/17 06:00 Fibrinogen 237.0 mg/dL (200.0-400.0) 03/15/17 06:00 D-Dimer 2010 ng/mL (100-400) H 03/15/17 06:00 Specimen Source Arterial 03/11/17 09:40 Sample Site Right Radial 03/11/17 09:40 pH 7.29 (7.35-7.45) L 03/11/17 09:40 pCO2 44.0 mmHg (35.0-45.0) 03/11/17 09:40 pO2 66.0 mmHg (80.0-100.0) L 03/11/17 09:40 HCO3 20.6 mEq/L (20.0-26.0) 03/11/17 09:40 Base Excess -5.3 mEq/L (-3.0-3.0) L 03/11/17 09:40 O2 Saturation 90.0 % (92.0-100.0) L 03/11/17 09:40 Jorje Test YES 03/11/17 09:40 Vent Rate 4 03/11/17 09:40 Inspired O2 30 03/11/17 09:40 Tidal Volume 550 03/11/17 09:40 PEEP 5 03/11/17 09:40 Pressure (ins/psv/peep) 15 03/11/17 09:40 Critical Value E.HERNANDEZ 03/11/17 09:40 Sodium 137 mEq/L (136-145) 03/15/17 06:00 Potassium 3.1 mEq/L (3.5-5.1) L 03/15/17 06:00 Chloride 108 mEq/L (98-107) H 03/15/17 06:00 Carbon Dioxide 17.7 mEq/L (21.0-31.0) L 03/15/17 06:00 Anion Gap 14.4 (7.0-16.0) 03/15/17 06:00 BUN 44 mg/dL (7-25) H 03/15/17 06:00 Creatinine 1.6 mg/dL (0.6-1.2) H 03/15/17 06:00 Est GFR ( Amer) 41.1 ml/min (>90) 03/15/17 06:00 Est GFR (Non-Af Amer) 34.0 ml/min 03/15/17 06:00 BUN/Creatinine Ratio 27.5 03/15/17 06:00 Glucose 163 mg/dL (70-105) H 03/15/17 06:00 POC Glucose 137 MG/DL (70 - 105) H 03/15/17 06:04 Hemoglobin A1c % 5.8 % (4.0-6.0) 02/22/17 10:38 Whole Bld Lactic Acid 2.40 mmol/L (0.60-1.99) H* 02/27/17 15:04 Calcium 8.0 mg/dL (8.6-10.3) L 03/15/17 06:00 Phosphorus 2.5 mg/dL (2.5-5.0) 03/01/17 09:15 Magnesium 2.1 mg/dL (1.9-2.7) 03/01/17 09:15 Total Bilirubin 0.5 mg/dL (0.3-1.0) 03/11/17 08:15 Direct Bilirubin 0.09 mg/dL (0.0-0.2) 02/18/17 23:35 AST 19 U/L (13-39) 03/11/17 08:15 ALT 5 U/L (7-52) L 03/11/17 08:15 Alkaline Phosphatase 69 U/L (34-104) 03/11/17 08:15 Ammonia 38 umol/L (16-53) 03/01/17 17:28 B-Natriuretic Peptide 158.0 pg/mL (5.0-100.0) H 03/04/17 15:39 Total Protein 5.2 gm/dL (6.0-8.3) L 03/11/17 08:15 Albumin 2.9 gm/dL (3.7-5.3) L 03/11/17 08:15 Globulin 2.3 gm/dL 03/11/17 08:15 Albumin/Globulin Ratio 1.3 (1.0-1.8) 03/11/17 08:15 Amylase 36 U/L (29-103) 02/18/17 23:35 Lipase 10 U/L (11-82) L 02/18/17 23:35 Vitamin B12 860 pg/mL (232-1245) 02/26/17 04:45 Free T4 1.04 ng/dL (0.82-1.77) 02/25/17 04:50 Free T3 0.7 pg/mL (2.0-4.4) L 02/25/17 04:50 TSH 0.84 uIU/ml (0.34-5.60) 02/25/17 04:50 Total Cortisol 12.3 02/24/17 07:50 Urine Source [place] 02/27/17 15:00 Urine Color YELLOW 02/27/17 15:00 Urine Clarity CLOUDY (CLEAR) H 02/27/17 15:00 Urine pH 5.5 (4.6 - 8.0) 02/27/17 15:00 Ur Specific [place] <= 1.005 (1.005-1.030) 02/27/17 15:00 Urine Protein TRACE mg/dL (NEGATIVE) 02/27/17 15:00 Urine Glucose (UA) NEGATIVE mg/dL (NEGATIVE) 02/27/17 15:00 Urine Ketones NEGATIVE mg/dL (NEGATIVE) 02/27/17 15:00 Urine Blood LARGE (NEGATIVE) H 02/27/17 15:00 Urine Nitrate NEGATIVE (NEGATIVE) 02/27/17 15:00 Urine Bilirubin NEGATIVE (NEGATIVE) 02/27/17 15:00 Urine Urobilinogen 0.2 E.U./dL (0.2 - 1.0) 02/27/17 15:00 Ur Leukocyte Esterase LARGE (NEGATIVE) H 02/27/17 15:00 Urine RBC 10-25 /hpf (0-5) H 02/27/17 15:00 Urine WBC >100 /hpf (0-5) H 02/27/17 15:00 Ur Epithelial Cells MODERATE /lpf (FEW) 02/27/17 15:00 Urine Bacteria MODERATE /hpf (NONE SEEN) H 12/31/17 15:00 Urine Yeast MODERATE /hpf (NONE SEEN) H 02/20/17 16:15 Stool Occult Blood NEGATIVE (NEGATIVE) 03/11/17 17:25 Blood Type A POSITIVE 03/13/17 09:15 Antibody Screen NEGATIVE 03/13/17 09:15 Crossmatch See Detail 03/13/17 09:15 - Physical Exam Vitals and I&O: Vital Signs Temp 97.6 F 03/15/17 05:00 Pulse 79 03/15/17 09:12 Resp 12 03/15/17 07:55 BP 101/54 03/15/17 08:53 Pulse Ox 98 03/15/17 09:12 Intake & Output 03/14/17 03/15/17 03/15/17 18:59 06:59 18:59 Intake Total 102.5 92.126 5.676 Output Total 930 Balance -827.5 92.126 5.676 Weight (lbs) 126.552 kg Intake: Intake, IV Amount 62.5 92.126 5.676 Furosemide 100 mg In 36.333 Sodium Chloride 0.9% 40 ml @ 2.5 mls/hr IV TITR [facility] Rx#:[id number] Meropenem 1 gm In Sodium 50 Chloride 0.9% 50 ml @ 100 mls/hr IV Q12H [facility] Rx#: [id number] Norepinephrine 8 mg In 55.793 5.676 Sodium Chloride 0.9% 250 ml @ Per Protocol IV TITR [facility] Rx#:[id number] Pantoprazole 80 mg In 12.5 Sodium Chloride 0.9% 100 ml @ 10 mls/hr IV Q10H [facility] Rx#:[id number] Tube Feeding 40 Output: Urine 930 Other: # Bowel Movements 1 Active Medications: Current Medications Acetaminophen (Tylenol) 650 mg PO Q4HR PRN PRN Reason: Pain (Mild) Stop: 04/20/17 12:01 Last Admin: 03/06/17 03:23 Dose: 650 mg Albuterol/Ipratropium (Duoneb Neb) 3 ml HHN Q4HRT PRN PRN Reason: Wheezing Stop: 04/27/17 19:59 Last Admin: 02/28/17 03:18 Dose: 3 ml Albuterol/Ipratropium (Duoneb Neb) 3 ml HHN [id number] [facility] Stop: 04/27/17 19:59 Last Admin: 03/15/17 07:47 Dose: 3 ml Chlorhexidine Gluconate (Peridex) 15 ml MM 0800,1999 [facility] Stop: 04/28/17 19:59 Last Admin: 03/15/17 08:54 Dose: 15 ml Diltiazem HCl (Cardizem) 5 mg IVP Q4H PRN PRN Reason: HR > 120 Stop: 04/27/17 19:59 Last Admin: 02/27/17 04:59 Dose: 5 mg Docusate Sodium (Colace) 100 mg PO BID [facility] Stop: 04/20/17 16:59 Last Admin: 03/15/17 08:54 Dose: 100 mg Hydromorphone HCl (Dilaudid) 1 mg IVP Q4HR PRN PRN Reason: Severe Pain Stop: 05/13/17 13:01 Last Admin: 03/14/17 18:37 Dose: 1 mg Phenylephrine HCl 10 mg/ (Sodium Chloride) 250 mls @ 0 mls/hr IV TITR [facility]; Per Protocol PRN Reason: Protocol Stop: 04/28/17 07:59 Norepinephrine Bitartrate 8 mg (/ Sodium Chloride) 258 mls @ 0 mls/hr IV TITR [facility]; Per Protocol PRN Reason: Protocol Stop: 04/28/17 09:59 Last Titration: 03/15/17 07:26 Dose: 0 mcg/min, 0 mls/hr Furosemide 100 mg/ Sodium (Chloride) 50 mls @ 2.5 mls/hr IV TITR [facility] Stop: 05/13/17 14:29 Last Admin: 03/15/17 05:59 Dose: 2.5 mls/hr Insulin Aspart (Novolog Insulin Sliding Scale) 0 units SUBQ Q6H PATRIA PRN Reason: Protocol Stop: 05/03/17 00:00 Last Admin: 03/15/17 07:26 Dose: Not Given Metoclopramide HCl (Reglan) 5 mg IVP Q6HR [facility] Stop: 05/05/17 17:59 Last Admin: 03/15/17 05:42 Dose: 5 mg Metolazone (Zaroxolyn) 5 mg PO DAILY [facility] Stop: 05/10/17 13:14 Last Admin: 03/15/17 08:53 Dose: 5 mg Mirtazapine (Remeron) 15 mg PO HS PATRIA PRN Reason: Protocol Stop: 04/26/17 20:59 Last Admin: 03/14/17 20:20 Dose: 15 mg Miscellaneous (Probiotic Screen) 1 ea PRN PRN PRN Reason: PROTOCOL Stop: 04/21/17 16:25 Miscellaneous (Communication Order) 1 ea MC PRN PATRIA Stop: 05/10/17 13:14 Morphine Sulfate (Morphine) 1 mg IVP Q4HR PRN PRN Reason: Severe Pain Stop: 05/04/17 14:13 Last Admin: 03/15/17 05:36 Dose: 1 mg Nitroglycerin (Nitrostat) 0.4 mg SL Q5MIN PRN PRN Reason: Chest Pain Stop: 04/20/17 12:01 Nystatin (Nystop) 100,000 units TP BID PRN PRN Reason: SKIN EXCORIATIONS Stop: 04/21/17 15:35 Last Admin: 03/08/17 06:00 Dose: 100,000 units Ondansetron HCl (Zofran) 4 mg IV Q6H PRN PRN Reason: Nausea Stop: 04/20/17 03:38 Pantoprazole Sodium (Protonix) 40 mg PO DAILY [facility] Stop: 05/13/17 14:14 Last Admin: 03/15/17 08:53 Dose: 40 mg General: Alert, No acute distress HEENT: Atraumatic (on ETT/VENT), EOMI Neck: Supple, JVD, +2 carotid pulse wo bruit Cardiovascular: Regular rate Lungs: Other (coarse rhonchi) Abdomen: Bowel sounds, Soft Extremities: Edema, Other ((+3) bipedal edema) Neurological: Sensation intact Skin: no Rash Psych/Mental Status: Mood NL - Procedures Procedures: Procedures Procedure Code Date INSERT EMERGENCY AIRWAY 84391 02/19/17 INSERTION OF ENDOTRACHEAL AIRWAY INTO TRACHEA, VIA OPENING [id number] 02/19/17 RESPIRATORY VENTILATION, GREATER THAN 96 CONSECUTIVE HOURS [id number] 02/19/17 VENT MGMT INPAT INIT DAY 02/19/17 VENT MGMT INPAT SUBQ DAY 02/19/17 Assessment/Plan - Problem List Patient Problems: All Active Problems Acute kidney failure (Acute) 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 Azotemia (Acute) R79.89 Bradycardia (Acute) R00.1 COPD (chronic obstructive pulmonary disease) (Acute) Cardiomegaly (Acute) I51.7 Chest pain (Acute) R07.9 Decubitus ulcer of buttock, 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 - Assessment Assessment: 71 YO FEMALE WITH ALLEGED GASTRIC OUTLET OBSTRUCTION EGD SHOWED GASTRITIS WITHOUT OBSTRUCTION MICAELA NGT FEEDS AT LOW RATE SBFT NEG 1.CONT NGT FEEDS MICAELA 2.CONT SUPP CARE 3.MAY NEED PEG IF DESIRED BY FAMILY, will be discussed today with family. Plan for later this week possibly
--- NOTE | 2017-03-15 10:45 | Progress Notes ---
DATE: 03/14/2017 SUBJECTIVE: The patient was seen in ICU, lying in the bed. According to nurse, the patient had tracheostomy done today. The patient has no signs of active bleeding at this time. Otherwise, the patient appears to be comfortable, in no acute distress. OBJECTIVE: VITAL SIGNS: Temperature 97.6, heart rate 78, blood pressure 116/57, respirations of 18, and 99% via tracheostomy connected to ventilator with FiO2 of 40%. HEENT: Head is atraumatic and normocephalic. Eyes, bilateral conjunctivae are clear. Bilateral pupils are equally round and reactive. NECK: Supple. No JVD. The patient has a tracheostomy connected to ventilator. CARDIOVASCULAR: S1 and S2 without murmur. PULMONARY: Fine scattered rhonchi noted. GASTROINTESTINAL: Soft and nontender without guarding. Positive bowel sounds. The patient has a nasogastric tube. MUSCULOSKELETAL: Generalized edema on the upper and lower extremities noted. ASSESSMENT: 1. Sepsis. 2. Respiratory failure. 3. Status post tracheostomy. 4. Dysphagia. 5. Pneumonia. 6. Urinary tract infection. 7. Acute kidney injury. 8. Anasarca. 9. Anemia. PLAN: We will initiate Lasix drip. We will follow up with the [facility] of nursing [employer] to monitor the patient's renal status. We will keep the patient inpatient in the ICU. Current condition is critical. Treatment plans were discussed with the patient's nurse. Treatment plans were discussed with Dr. Yates. [facility]# [id number]
--- NOTE | 2017-03-15 13:23 | General Progress Note ---
Subjective - Review of Systems Subjective: very awake, on vent Objective - Results Result Diagrams: 03/15/17 06:00 03/15/17 06:00 Recent Labs: Laboratory Last Values WBC 13.5 Th/cmm (4.8-10.8) H 03/15/17 06:00 RBC 3.45 Mil/cmm (3.80-5.20) L 03/15/17 06:00 Hgb 10.5 gm/dL (12-16) L 03/15/17 06:00 Hct 30.2 % (41.0-60) L 03/15/17 06:00 MCV 87.6 fl (81-100) 03/15/17 06:00 MCH 30.4 pg (27.0-31.0) 03/15/17 06:00 MCHC Differential 34.7 pg (28.0-36.0) 03/15/17 06:00 RDW 15.3 % (11.5-20.0) 03/15/17 06:00 Plt Count 176 Th/cmm (150-400) D 03/15/17 06:00 MPV 7.8 fl 03/15/17 06:00 Neutrophils % 79.5 % (40.0-80.0) 03/15/17 06:00 Band Neutrophils % 5 % (0-10) 03/06/17 06:00 Lymphocytes % 9.3 % (20.0-50.0) L 03/15/17 06:00 Monocytes % 5.1 % (2.0-10.0) 03/15/17 06:00 Eosinophils % 5.5 % (0.0-5.0) H 03/15/17 06:00 Basophils % 0.6 % (0.0-2.0) 03/15/17 06:00 Neutrophils (Manual) 85 % (40-80) H 03/06/17 06:00 Lymphocytes 4 % (20-50) L 03/06/17 06:00 Monocytes 3 % (2-10) 03/06/17 06:00 Eosinophils 3 % (0-5) 03/06/17 06:00 Metamyelocytes 1 % (0-0) H 02/18/17 23:35 Hypochromia 1+ 02/18/17 23:35 Platelet Estimate DECREASED PLATELETS (NORMAL) 03/06/17 06:00 Platelet Morphology (NORMAL) 03/04/17 08:00 Plt Count 176 Th/cmm (150-750) D 03/15/17 06:00 PT 13.1 SECONDS (9.5-11.5) H 03/15/17 06:00 INR 1.25 (0.5-1.4) 03/15/17 06:00 PTT (Actin FS) 25.4 SECONDS (26.0-38.0) L 03/15/17 06:00 Fibrinogen 237.0 mg/dL (200.0-400.0) 03/15/17 06:00 D-Dimer 2010 ng/mL (100-400) H 03/15/17 06:00 Specimen Source Arterial 03/11/17 09:40 Sample Site Right Radial 03/11/17 09:40 pH 7.29 (7.35-7.45) L 03/11/17 09:40 pCO2 44.0 mmHg (35.0-45.0) 03/11/17 09:40 pO2 66.0 mmHg (80.0-100.0) L 03/11/17 09:40 HCO3 20.6 mEq/L (20.0-26.0) 03/11/17 09:40 Base Excess -5.3 mEq/L (-3.0-3.0) L 03/11/17 09:40 O2 Saturation 90.0 % (92.0-100.0) L 03/11/17 09:40 Jorje Test YES 03/11/17 09:40 Vent Rate 4 03/11/17 09:40 Inspired O2 30 03/11/17 09:40 Tidal Volume 550 03/11/17 09:40 PEEP 5 03/11/17 09:40 Pressure (ins/psv/peep) 15 03/11/17 09:40 Critical Value E.HERNANDEZ 03/11/17 09:40 Sodium 137 mEq/L (136-145) 03/15/17 06:00 Potassium 3.1 mEq/L (3.5-5.1) L 03/15/17 06:00 Chloride 108 mEq/L (98-107) H 03/15/17 06:00 Carbon Dioxide 17.7 mEq/L (21.0-31.0) L 03/15/17 06:00 Anion Gap 14.4 (7.0-16.0) 03/15/17 06:00 BUN 44 mg/dL (7-25) H 03/15/17 06:00 Creatinine 1.6 mg/dL (0.6-1.2) H 03/15/17 06:00 Est GFR ( Amer) 41.1 ml/min (>90) 03/15/17 06:00 Est GFR (Non-Af Amer) 34.0 ml/min 03/15/17 06:00 BUN/Creatinine Ratio 27.5 03/15/17 06:00 Glucose 163 mg/dL (70-105) H 03/15/17 06:00 POC Glucose 137 MG/DL (70 - 105) H 03/15/17 06:04 Hemoglobin A1c % 5.8 % (4.0-6.0) 02/22/17 10:38 Whole Bld Lactic Acid 2.40 mmol/L (0.60-1.99) H* 02/27/17 15:04 Calcium 8.0 mg/dL (8.6-10.3) L 03/15/17 06:00 Phosphorus 2.5 mg/dL (2.5-5.0) 03/01/17 09:15 Magnesium 2.1 mg/dL (1.9-2.7) 03/01/17 09:15 Total Bilirubin 0.5 mg/dL (0.3-1.0) 03/11/17 08:15 Direct Bilirubin 0.09 mg/dL (0.0-0.2) 02/18/17 23:35 AST 19 U/L (13-39) 03/11/17 08:15 ALT 5 U/L (7-52) L 03/11/17 08:15 Alkaline Phosphatase 69 U/L (34-104) 03/11/17 08:15 Ammonia 38 umol/L (16-53) 03/01/17 17:28 B-Natriuretic Peptide 158.0 pg/mL (5.0-100.0) H 03/04/17 15:39 Total Protein 5.2 gm/dL (6.0-8.3) L 03/11/17 08:15 Albumin 2.9 gm/dL (3.7-5.3) L 03/11/17 08:15 Globulin 2.3 gm/dL 03/11/17 08:15 Albumin/Globulin Ratio 1.3 (1.0-1.8) 03/11/17 08:15 Amylase 36 U/L (29-103) 02/18/17 23:35 Lipase 10 U/L (11-82) L 02/18/17 23:35 Vitamin B12 860 pg/mL (232-1245) 02/26/17 04:45 Free T4 1.04 ng/dL (0.82-1.77) 02/25/17 04:50 Free T3 0.7 pg/mL (2.0-4.4) L 02/25/17 04:50 TSH 0.84 uIU/ml (0.34-5.60) 02/25/17 04:50 Total Cortisol 12.3 02/24/17 07:50 Urine Source [place] 02/27/17 15:00 Urine Color YELLOW 02/27/17 15:00 Urine Clarity CLOUDY (CLEAR) H 02/27/17 15:00 Urine pH 5.5 (4.6 - 8.0) 02/27/17 15:00 Ur Specific [place] <= 1.005 (1.005-1.030) 02/27/17 15:00 Urine Protein TRACE mg/dL (NEGATIVE) 02/27/17 15:00 Urine Glucose (UA) NEGATIVE mg/dL (NEGATIVE) 02/27/17 15:00 Urine Ketones NEGATIVE mg/dL (NEGATIVE) 02/27/17 15:00 Urine Blood LARGE (NEGATIVE) H 02/27/17 15:00 Urine Nitrate NEGATIVE (NEGATIVE) 02/27/17 15:00 Urine Bilirubin NEGATIVE (NEGATIVE) 02/27/17 15:00 Urine Urobilinogen 0.2 E.U./dL (0.2 - 1.0) 02/27/17 15:00 Ur Leukocyte Esterase LARGE (NEGATIVE) H 02/27/17 15:00 Urine RBC 10-25 /hpf (0-5) H 02/27/17 15:00 Urine WBC >100 /hpf (0-5) H 02/27/17 15:00 Ur Epithelial Cells MODERATE /lpf (FEW) 02/27/17 15:00 Urine Bacteria MODERATE /hpf (NONE SEEN) H 02/27/17 15:00 Urine Yeast MODERATE /hpf (NONE SEEN) H 02/20/17 16:15 Stool Occult Blood NEGATIVE (NEGATIVE) 03/11/17 17:25 Blood Type A POSITIVE 03/13/17 09:15 Antibody Screen NEGATIVE 03/13/17 09:15 Crossmatch See Detail 03/13/17 09:15 - Physical Exam Vitals and I&O: Vital Signs Temp 97.3 F 03/15/17 08:00 Pulse 87 03/15/17 13:12 Resp 17 03/15/17 10:00 BP 93/43 03/15/17 10:00 Pulse Ox 98 03/15/17 13:12 Intake & Output 03/14/17 03/15/17 03/15/17 18:59 06:59 18:59 Intake Total 102.5 92.126 5.676 Output Total 930 Balance -827.5 92.126 5.676 Weight (lbs) 126.552 kg Intake: Intake, IV Amount 62.5 92.126 5.676 Furosemide 100 mg In 36.333 Sodium Chloride 0.9% 40 ml @ 2.5 mls/hr IV TITR [facility] Rx#:[id number] Meropenem 1 gm In Sodium 50 Chloride 0.9% 50 ml @ 100 mls/hr IV Q12H [facility] Rx#: [id number] Norepinephrine 8 mg In 55.793 5.676 Sodium Chloride 0.9% 250 ml @ Per Protocol IV TITR [facility] Rx#:[id number] Pantoprazole 80 mg In 12.5 Sodium Chloride 0.9% 100 ml @ 10 mls/hr IV Q10H [facility] Rx#:[id number] Tube Feeding 40 Output: Urine 930 Other: # Bowel Movements 1 Active Medications: Current Medications Acetaminophen (Tylenol) 650 mg PO Q4HR PRN PRN Reason: Pain (Mild) Stop: 04/20/17 12:01 Last Admin: 03/06/17 03:23 Dose: 650 mg Albuterol/Ipratropium (Duoneb Neb) 3 ml HHN Q4HRT PRN PRN Reason: Wheezing Stop: 04/27/17 19:59 Last Admin: 02/28/17 03:18 Dose: 3 ml Albuterol/Ipratropium (Duoneb Neb) 3 ml HHN [id number] [facility] Stop: 04/27/17 19:59 Last Admin: 03/15/17 13:12 Dose: 3 ml Chlorhexidine Gluconate (Peridex) 15 ml MM 0800,1999 [facility] Stop: 04/28/17 19:59 Last Admin: 03/15/17 08:54 Dose: 15 ml Diltiazem HCl (Cardizem) 5 mg IVP Q4H PRN PRN Reason: HR > 120 Stop: 04/27/17 19:59 Last Admin: 02/27/17 04:59 Dose: 5 mg Docusate Sodium (Colace) 100 mg PO BID [facility] Stop: 04/20/17 16:59 Last Admin: 03/15/17 08:54 Dose: 100 mg Hydromorphone HCl (Dilaudid) 1 mg IVP Q4HR PRN PRN Reason: Severe Pain Stop: 05/13/17 13:01 Last Admin: 03/14/17 18:37 Dose: 1 mg Phenylephrine HCl 10 mg/ (Sodium Chloride) 250 mls @ 0 mls/hr IV TITR PATRIA; Per Protocol PRN Reason: Protocol Stop: 04/28/17 07:59 Norepinephrine Bitartrate 8 mg (/ Sodium Chloride) 258 mls @ 0 mls/hr IV TITR [facility]RIA; Per Protocol PRN Reason: Protocol Stop: 04/28/17 09:59 Last Titration: 03/15/17 07:26 Dose: 0 mcg/min, 0 mls/hr Furosemide 100 mg/ Sodium (Chloride) 50 mls @ 2.5 mls/hr IV TITR [facility] Stop: 05/13/17 14:29 Last Admin: 03/15/17 05:59 Dose: 2.5 mls/hr Insulin Aspart (Novolog Insulin Sliding Scale) 0 units SUBQ Q6H [facility] PRN Reason: Protocol Stop: 05/03/17 00:00 Last Admin: 03/15/17 07:26 Dose: Not Given Metoclopramide HCl (Reglan) 5 mg IVP Q6HR [facility] Stop: 05/05/17 17:59 Last Admin: 03/15/17 05:42 Dose: 5 mg Metolazone (Zaroxolyn) 5 mg PO DAILY [facility] Stop: 05/10/17 13:14 Last Admin: 03/15/17 08:53 Dose: 5 mg Mirtazapine (Remeron) 15 mg PO HS [facility] PRN Reason: Protocol Stop: 04/26/17 20:59 Last Admin: 03/14/17 20:20 Dose: 15 mg Miscellaneous (Probiotic Screen) 1 ea MC PRN PRN PRN Reason: PROTOCOL Stop: 04/21/17 16:25 Miscellaneous (Communication Order) 1 ea MC PRN [facility]RIA Stop: 05/10/17 13:14 Morphine Sulfate (Morphine) 1 mg IVP Q4HR PRN PRN Reason: Severe Pain Stop: 05/04/17 14:13 Last Admin: 03/15/17 05:36 Dose: 1 mg Nitroglycerin (Nitrostat) 0.4 mg SL Q5MIN PRN PRN Reason: Chest Pain Stop: 04/20/17 12:01 Nystatin (Nystop) 100,000 units TP BID PRN PRN Reason: SKIN EXCORIATIONS Stop: 04/21/17 15:35 Last Admin: 03/08/17 06:00 Dose: 100,000 units Ondansetron HCl (Zofran) 4 mg IV Q6H PRN PRN Reason: Nausea Stop: 04/20/17 03:38 Pantoprazole Sodium (Protonix) 40 mg PO DAILY [facility] Stop: 05/13/17 14:14 Last Admin: 03/15/17 08:53 Dose: 40 mg General: Alert, No acute distress HEENT: Atraumatic (on ETT/VENT), EOMI Neck: Supple, JVD, +2 carotid pulse wo bruit Cardiovascular: Regular rate Lungs: Other (coarse rhonchi) Abdomen: Bowel sounds, Soft Extremities: Edema, Other ((+3) bipedal edema, decrease right UE edema) Neurological: Sensation intact Skin: no Rash Psych/Mental Status: Mood NL - Procedures Procedures: Procedures Procedure Code Date BYPASS TRACHEA TO CUTANEOUS WITH TRACH DEV, OPEN APPROACH [id number] 02/19/17 INCISION OF WINDPIPE 79528 02/19/17 INSERT EMERGENCY AIRWAY 69462 02/19/17 INSERTION OF ENDOTRACHEAL AIRWAY INTO TRACHEA, VIA OPENING [id number] 02/19/17 RESPIRATORY VENTILATION, GREATER THAN 96 CONSECUTIVE HOURS [id number] 02/19/17 VENT MGMT INPAT INIT DAY 26275 02/19/17 VENT MGMT INPAT SUBQ DAY 68871 02/19/17 Assessment/Plan - Problem List Patient Problems: All Active Problems Acute kidney failure (Acute) 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 Azotemia (Acute) R79.89 Bradycardia (Acute) R00.1 COPD (chronic obstructive pulmonary disease) (Acute) Cardiomegaly (Acute) I51.7 Chest pain (Acute) R07.9 Decubitus ulcer of buttock, 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 - Assessment Assessment: SOHAIL on CKD Acute resp failure on vent 2nd CHF, HAP, possible SOFIE, Exacerbation COPD Shock Sepsis DJD Type 2 DM GERD SOFIE Hyponatremia S/p [place], Appe anasarca Thrombocytopenia Anemia of CD - Plan Plan: Lab - Result Diagrams 03/01/17 09:15 03/01/17 09:15 Current Medications Acetaminophen (Tylenol) 650 mg PO Q4HR PRN PRN Reason: Pain (Mild) Stop: 04/20/17 12:01 Last Admin: 02/21/17 09:54 Dose: 650 mg Acetaminophen/Hydrocodone Bitart ([place] 5mg/325mg) 1 tab PO Q6H PRN PRN Reason: PAIN Stop: 04/20/17 13:24 Albuterol/Ipratropium (Duoneb Neb) 3 ml HHN Q4HRT PRN PRN Reason: Wheezing Stop: 04/27/17 19:59 Last Admin: 02/28/17 03:18 Dose: 3 ml Albuterol/Ipratropium (Duoneb Neb) 3 ml HHN [id number] [facility] Stop: 04/27/17 19:59 Last Admin: 03/01/17 13:49 Dose: 3 ml Aspirin (Ecotrin) 81 mg PO DAILY [facility] Stop: 04/21/17 08:59 Last Admin: 03/01/17 09:30 Dose: Not Given Chlorhexidine Gluconate (Peridex) 15 ml MM 0800,2000 [facility] Stop: 04/28/17 19:59 Last Admin: 03/01/17 08:30 Dose: 15 ml Diltiazem HCl (Cardizem) 5 mg IVP Q4H PRN PRN Reason: HR > 120 Stop: 04/27/17 19:59 Last Admin: 02/27/17 04:59 Dose: 5 mg Docusate Sodium (Colace) 100 mg PO BID [facility] Stop: 04/20/17 16:59 Last Admin: 03/01/17 09:31 Dose: Not Given Fluconazole (Diflucan) 100 mg PO DAILY [facility] Stop: 03/08/17 08:59 Last Admin: 03/01/17 09:31 Dose: Not Given Furosemide (Lasix) 40 mg PO DAILY [facility] Stop: 04/21/17 08:59 Last Admin: 03/01/17 09:31 Dose: Not Given Pantoprazole Sodium 80 mg/ (Sodium Chloride) 100 mls @ 10 mls/hr IV Q10H [facility] Stop: 04/20/17 08:59 Last Admin: 03/01/17 09:31 Dose: 10 mls/hr Linezolid (Zyvox) 600 mg in 300 mls @ 300 mls/hr IV Q12HR [facility] Stop: 04/22/17 20:59 Last Infusion: 03/01/17 10:00 Dose: Infused Levofloxacin (Levaquin Pb) 250 mg in 50 mls @ 50 mls/hr IV Q24HR [facility] Stop: 04/23/17 20:59 Last Infusion: 02/28/17 21:17 Dose: Infused Phenylephrine HCl 10 mg/ (Sodium Chloride) 250 mls @ 0 mls/hr IV TITR [facility]; Per Protocol PRN Reason: Protocol Stop: 04/28/17 07:59 Norepinephrine Bitartrate 8 mg (/ Sodium Chloride) 258 mls @ 0 mls/hr IV TITR [facility]; Per Protocol PRN Reason: Protocol Stop: 04/28/17 09:59 Last Titration: 03/01/17 06:31 Dose: 6 mcg/min, 11.61 mls/hr Meropenem 1 gm/ Dextrose 100 mls @ 100 mls/hr IV Q12H [facility] Stop: 04/28/17 12:29 Last Infusion: 03/01/17 13:00 Dose: Infused Potassium Chloride/Dextrose/Sod Cl (D5-0.9ns W/Kcl 20meq) 1,000 mls @ 75 mls/ hr IV .[id number] [facility] Stop: 04/30/17 14:41 Insulin Aspart (Novolog Insulin Sliding Scale) 0 units SUBQ ACHS [facility] PRN Reason: Protocol Stop: 04/20/17 16:29 Last Admin: 03/01/17 12:01 Dose: 4 units Mirtazapine (Remeron) 15 mg PO HS [facility] PRN Reason: Protocol Stop: 04/26/17 20:59 Last Admin: 02/28/17 21:23 Dose: 15 mg Miscellaneous (Probiotic Screen) 1 ea MC PRN PRN PRN Reason: PROTOCOL Stop: 04/21/17 16:25 Morphine Sulfate (Morphine) 1 mg IVP Q3H PRN PRN Reason: Pain (Moderate) Stop: 04/20/17 01:59 Last Admin: 03/01/17 09:28 Dose: 1 mg Nitroglycerin (Nitrostat) 0.4 mg SL Q5MIN PRN PRN Reason: Chest Pain Stop: 04/20/17 12:01 Nystatin (Nystop) 100,000 units TP BID PRN PRN Reason: SKIN EXCORIATIONS Stop: 04/21/17 15:35 Last Admin: 02/21/17 11:46 Dose: 100,000 units Ondansetron HCl (Zofran) 4 mg IV Q6H PRN PRN Reason: Nausea Stop: 04/20/17 03:38 Spironolactone (Aldactone) 50 mg PO BID [facility] Stop: 04/27/17 08:59 Last Admin: 03/01/17 09:29 Dose: Not Given Lab - Result Diagrams 03/15/17 06:00 03/15/17 06:00 Na up to 137 kidney fnc remain stable w/ BUN/Cr of 44/1.6 UOP improved to nam 2L CXR still w/ CHF, continue Lasix drip, add metolazone DC spironolactone f/u electorlytes, cbc, CXR DC ivf due to worsening anasarca, chf add albumin initiate [id number] Plts up to 176 Peptamen @ 20 ml/hr Nutritional Asmnt/Malnutr-PDOC - Dietary Evaluation Malnutrition Findings (Please click <Entered> for more info): Nutritional Asmnt/Malnutrition Start: 02/21/17 18: 20 Text: Status: Complete Freq: Document 02/21/17 18:21 LCHENG (Rec: 02/21/17 18:32 LCHENG [id number]) Nutritional Asmnt/Malnutrition Patient General Information Nutritional Screening High Risk Consult Diagnosis gastric outlet obstruction Pertinent Medical Hx/Surgical Hx HTN, OA, DM, GERD Subjective Information Pt seen sleeping at the time of visit, attempted x 2. Spoke with RN, pt consumed 50% of breakfast and only the soup of lunch today, not much appetite, no complain of N/V. Pt will be NPO from midnight for GI exam tommorrow. Current Diet Order/ Nutrition Support no added salt 4gm, CCHO, no eggs, banana and cereal in morning Pertinent Medications colace, lasix, novolog, levaquin, piperacillin Pertinent Labs 02/20 Na 137, K 4.5, Cl 104, BUN 55, Cr 1.6, Glucose 137, POC 126-199 since admit, Ca 8. 3 Nutritional Hx/Data Height 1.57 m Height (Calculated Centimeters) 157.5 Current Weight (lbs) 97.023 kg Weight (Calculated Kilograms) 97.0 Weight (Calculated Grams) 99361.4 Enochs Body Weight 110 % Enochs Body Weight 194 Body Mass Index (BMI) 39.1 Weight Status Obese GI Symptoms GI Symptoms None Last BM none Difficult in: None Skin Integrity/Comment: multiple maceration, abrasion to right/left medial thigh Current %PO Poor (25-49%) Estimated Nutritional Goals BEE in Kcals: Adj wt of IBW Calories/Kcals/Kg 27-32 Kcals Calculated Protein: Adj wt of IBW Protein g/k-1.2 Protein Calculated 62-74 Fluid: ml Nutritional Problem 1. Problem Problem inadequate PO intake Etiology poor appetite Signs/Symptoms: PO intake 25-50% Malnutrition Alert Protein-Calorie Malnutrition N/A Is there a minimum of two criteria No selected? Query Text:Check all the applicable criteria. A minimum of two criteria are recommended for diagnosis of either severe or non-severe malnutrition. Intervention/Recommendation Comments 1. Continue with current diet as ordered. 2. Monitor PO intake, GI symptons, wt, labs and skin integrity 3. F/U as high risk in 2-3 days, 02/23-02/24 Expected Outcomes/Goals Expected Outcomes/Goals 1. PO intake to meet at least 75% of nutritional needs. 2. Wt stability, skin to remain intact, labs to improve
--- NOTE | 2017-03-15 17:31 | Internal Medicine Prog Note ---
Internal Medicine Subjective - Subjective Service Date: 03/15/17 Patient is:: awake Per staff patient has:: tolerating meds Internal Medicine Objective - Results Result Diagrams: 03/15/17 06:00 03/15/17 06:00 Recent Labs: Laboratory Last Values WBC 13.5 Th/cmm (4.8-10.8) H 03/15/17 06:00 RBC 3.45 Mil/cmm (3.80-5.20) L 03/15/17 06:00 Hgb 10.5 gm/dL (12-16) L 03/15/17 06:00 Hct 30.2 % (41.0-60) L 03/15/17 06:00 MCV 87.6 fl (81-100) 03/15/17 06:00 MCH 30.4 pg (27.0-31.0) 03/15/17 06:00 MCHC Differential 34.7 pg (28.0-36.0) 03/15/17 06:00 RDW 15.3 % (11.5-20.0) 03/15/17 06:00 Plt Count 176 Th/cmm (150-400) D 03/15/17 06:00 MPV 7.8 fl 03/15/17 06:00 Neutrophils % 79.5 % (40.0-80.0) 03/15/17 06:00 Band Neutrophils % 5 % (0-10) 03/06/17 06:00 Lymphocytes % 9.3 % (20.0-50.0) L 03/15/17 06:00 Monocytes % 5.1 % (2.0-10.0) 03/15/17 06:00 Eosinophils % 5.5 % (0.0-5.0) H 03/15/17 06:00 Basophils % 0.6 % (0.0-2.0) 03/15/17 06:00 Neutrophils (Manual) 85 % (40-80) H 03/06/17 06:00 Lymphocytes 4 % (20-50) L 03/06/17 06:00 Monocytes 3 % (2-10) 03/06/17 06:00 Eosinophils 3 % (0-5) 03/06/17 06:00 Metamyelocytes 1 % (0-0) H 02/18/17 23:35 Hypochromia 1+ 02/18/17 23:35 Platelet Estimate DECREASED PLATELETS (NORMAL) 03/06/17 06:00 Platelet Morphology (NORMAL) 03/04/17 08:00 Plt Count 176 Th/cmm (150-750) D 03/15/17 06:00 PT 13.1 SECONDS (9.5-11.5) H 03/15/17 06:00 INR 1.25 (0.5-1.4) 03/15/17 06:00 PTT (Actin FS) 25.4 SECONDS (26.0-38.0) L 03/15/17 06:00 Fibrinogen 237.0 mg/dL (200.0-400.0) 03/15/17 06:00 D-Dimer 2010 ng/mL (100-400) H 03/15/17 06:00 Specimen Source Arterial 03/11/17 09:40 Sample Site Right Radial 03/11/17 09:40 pH 7.29 (7.35-7.45) L 03/11/17 09:40 pCO2 44.0 mmHg (35.0-45.0) 03/11/17 09:40 pO2 66.0 mmHg (80.0-100.0) L 03/11/17 09:40 HCO3 20.6 mEq/L (20.0-26.0) 03/11/17 09:40 Base Excess -5.3 mEq/L (-3.0-3.0) L 03/11/17 09:40 O2 Saturation 90.0 % (92.0-100.0) L 03/11/17 09:40 Jorje Test YES 03/11/17 09:40 Vent Rate 4 03/11/17 09:40 Inspired O2 30 03/11/17 09:40 Tidal Volume 550 03/11/17 09:40 PEEP 5 03/11/17 09:40 Pressure (ins/psv/peep) 15 03/11/17 09:40 Critical Value E.HERNANDEZ 03/11/17 09:40 Sodium 137 mEq/L (136-145) 03/15/17 06:00 Potassium 3.1 mEq/L (3.5-5.1) L 03/15/17 06:00 Chloride 108 mEq/L (98-107) H 03/15/17 06:00 Carbon Dioxide 17.7 mEq/L (21.0-31.0) L 03/15/17 06:00 Anion Gap 14.4 (7.0-16.0) 03/15/17 06:00 BUN 44 mg/dL (7-25) H 03/15/17 06:00 Creatinine 1.6 mg/dL (0.6-1.2) H 03/15/17 06:00 Est GFR ( Amer) 41.1 ml/min (>90) 03/15/17 06:00 Est GFR (Non-Af Amer) 34.0 ml/min 03/15/17 06:00 BUN/Creatinine Ratio 27.5 03/15/17 06:00 Glucose 163 mg/dL (70-105) H 03/15/17 06:00 POC Glucose 137 MG/DL (70 - 105) H 03/15/17 06:04 Hemoglobin A1c % 5.8 % (4.0-6.0) 02/22/17 10:38 Whole Bld Lactic Acid 2.40 mmol/L (0.60-1.99) H* 02/27/17 15:04 Calcium 8.0 mg/dL (8.6-10.3) L 03/15/17 06:00 Phosphorus 2.5 mg/dL (2.5-5.0) 03/01/17 09:15 Magnesium 2.1 mg/dL (1.9-2.7) 03/01/17 09:15 Total Bilirubin 0.5 mg/dL (0.3-1.0) 03/11/17 08:15 Direct Bilirubin 0.09 mg/dL (0.0-0.2) 02/18/17 23:35 AST 19 U/L (13-39) 03/11/17 08:15 ALT 5 U/L (7-52) L 03/11/17 08:15 Alkaline Phosphatase 69 U/L (34-104) 03/11/17 08:15 Ammonia 38 umol/L (16-53) 03/01/17 17:28 B-Natriuretic Peptide 158.0 pg/mL (5.0-100.0) H 03/04/17 15:39 Total Protein 5.2 gm/dL (6.0-8.3) L 03/11/17 08:15 Albumin 2.9 gm/dL (3.7-5.3) L 03/11/17 08:15 Globulin 2.3 gm/dL 03/11/17 08:15 Albumin/Globulin Ratio 1.3 (1.0-1.8) 03/11/17 08:15 Amylase 36 U/L (29-103) 02/18/17 23:35 Lipase 10 U/L (11-82) L 02/18/17 23:35 Vitamin B12 860 pg/mL (232-1245) 02/26/17 04:45 Free T4 1.04 ng/dL (0.82-1.77) 02/25/17 04:50 Free T3 0.7 pg/mL (2.0-4.4) L 02/25/17 04:50 TSH 0.84 uIU/ml (0.34-5.60) 02/25/17 04:50 Total Cortisol 12.3 02/24/17 07:50 Urine Source [place] 02/27/17 15:00 Urine Color YELLOW 02/27/17 15:00 Urine Clarity CLOUDY (CLEAR) H 02/27/17 15:00 Urine pH 5.5 (4.6 - 8.0) 02/27/17 15:00 Ur Specific [place] <= 1.005 (1.005-1.030) 02/27/17 15:00 Urine Protein TRACE mg/dL (NEGATIVE) 02/27/17 15:00 Urine Glucose (UA) NEGATIVE mg/dL (NEGATIVE) 02/27/17 15:00 Urine Ketones NEGATIVE mg/dL (NEGATIVE) 02/27/17 15:00 Urine Blood LARGE (NEGATIVE) H 02/27/17 15:00 Urine Nitrate NEGATIVE (NEGATIVE) 02/27/17 15:00 Urine Bilirubin NEGATIVE (NEGATIVE) 02/27/17 15:00 Urine Urobilinogen 0.2 E.U./dL (0.2 - 1.0) 02/27/17 15:00 Ur Leukocyte Esterase LARGE (NEGATIVE) H 02/27/17 15:00 Urine RBC 10-25 /hpf (0-5) H 02/27/17 15:00 Urine WBC >100 /hpf (0-5) H 02/27/17 15:00 Ur Epithelial Cells MODERATE /lpf (FEW) 02/27/17 15:00 Urine Bacteria MODERATE /hpf (NONE SEEN) H 02/27/17 15:00 Urine Yeast MODERATE /hpf (NONE SEEN) H 02/20/17 16:15 Stool Occult Blood NEGATIVE (NEGATIVE) 03/11/17 17:25 Blood Type A POSITIVE 03/13/17 09:15 Antibody Screen NEGATIVE 03/13/17 09:15 Crossmatch See Detail 03/13/17 09:15 - Physical Exam Vitals and I&O: Vital Signs Temp 97.4 F 03/15/17 14:00 Pulse 89 03/15/17 17:09 Resp 12 03/15/17 14:00 BP 104/60 03/15/17 17:28 Pulse Ox 99 03/15/17 17:09 Intake & Output 03/14/17 03/15/17 03/15/17 18:59 06:59 18:59 Intake Total 102.5 92.126 34.384 Output Total 930 Balance -827.5 92.126 34.384 Weight (lbs) 279 lb Intake: Intake, IV Amount 62.5 92.126 34.384 Furosemide 100 mg In 36.333 28.708 Sodium Chloride 0.9% 40 ml @ 2.5 mls/hr IV TITR [facility] Rx#:[id number] Meropenem 1 gm In Sodium 50 Chloride 0.9% 50 ml @ 100 mls/hr IV Q12H [facility] Rx#: [id number] Norepinephrine 8 mg In 55.793 5.676 Sodium Chloride 0.9% 250 ml @ Per Protocol IV TITR [facility] Rx#:[id number] Pantoprazole 80 mg In 12.5 Sodium Chloride 0.9% 100 ml @ 10 mls/hr IV Q10H [facility] Rx#:[id number] Tube Feeding 40 Output: Urine 930 Other: # Bowel Movements 1 Active Medications: Current Medications Acetaminophen (Tylenol) 650 mg PO Q4HR PRN PRN Reason: Pain (Mild) Stop: 04/20/17 12:01 Last Admin: 03/06/17 03:23 Dose: 650 mg Albuterol/Ipratropium (Duoneb Neb) 3 ml HHN Q4HRT PRN PRN Reason: Wheezing Stop: 04/27/17 19:59 Last Admin: 02/28/17 03:18 Dose: 3 ml Albuterol/Ipratropium (Duoneb Neb) 3 ml HHN [id number] [facility] Stop: 04/27/17 19:59 Last Admin: 03/15/17 13:12 Dose: 3 ml Chlorhexidine Gluconate (Peridex) 15 ml MM 08,1999 [facility] Stop: 04/28/17 19:59 Last Admin: 03/15/17 08:54 Dose: 15 ml Diltiazem HCl (Cardizem) 5 mg IVP Q4H PRN PRN Reason: HR > 120 Stop: 04/27/17 19:59 Last Admin: 02/27/17 04:59 Dose: 5 mg Docusate Sodium (Colace) 100 mg PO BID [facility] Stop: 04/20/17 16:59 Last Admin: 03/15/17 17:28 Dose: 100 mg Hydromorphone HCl (Dilaudid) 1 mg IVP Q4HR PRN PRN Reason: Severe Pain Stop: 05/13/17 13:01 Last Admin: 03/14/17 18:37 Dose: 1 mg Phenylephrine HCl 10 mg/ (Sodium Chloride) 250 mls @ 0 mls/hr IV TITR [facility]; Per Protocol PRN Reason: Protocol Stop: 04/28/17 07:59 Norepinephrine Bitartrate 8 mg (/ Sodium Chloride) 258 mls @ 0 mls/hr IV TITR [facility]; Per Protocol PRN Reason: Protocol Stop: 04/28/17 09:59 Last Titration: 03/15/17 07:26 Dose: 0 mcg/min, 0 mls/hr Furosemide 100 mg/ Sodium (Chloride) 50 mls @ 2.5 mls/hr IV TITR [facility] Stop: 05/13/17 14:29 Last Admin: 03/15/17 17:28 Dose: 2.5 mls/hr Insulin Aspart (Novolog Insulin Sliding Scale) 0 units SUBQ Q6H [facility] PRN Reason: Protocol Stop: 05/03/17 00:00 Last Admin: 03/15/17 12:45 Dose: Not Given Metoclopramide HCl (Reglan) 5 mg IVP Q6HR [facility] Stop: 05/05/17 17:59 Last Admin: 03/15/17 12:00 Dose: 5 mg Metolazone (Zaroxolyn) 5 mg PO DAILY [facility] Stop: 05/10/17 13:14 Last Admin: 03/15/17 08:53 Dose: 5 mg Mirtazapine (Remeron) 15 mg PO HS [facility] PRN Reason: Protocol Stop: 04/26/17 20:59 Last Admin: 03/14/17 20:20 Dose: 15 mg Miscellaneous (Probiotic Screen) 1 ea MC PRN PRN PRN Reason: PROTOCOL Stop: 04/21/17 16:25 Miscellaneous (Communication Order) 1 ea MC PRN [facility] Stop: 05/10/17 13:14 Morphine Sulfate (Morphine) 1 mg IVP Q4HR PRN PRN Reason: Severe Pain Stop: 05/04/17 14:13 Last Admin: 03/15/17 17:27 Dose: 1 mg Nitroglycerin (Nitrostat) 0.4 mg SL Q5MIN PRN PRN Reason: Chest Pain Stop: 04/20/17 12:01 Nystatin (Nystop) 100,000 units TP BID PRN PRN Reason: SKIN EXCORIATIONS Stop: 04/21/17 15:35 Last Admin: 03/08/17 06:00 Dose: 100,000 units Ondansetron HCl (Zofran) 4 mg IV Q6H PRN PRN Reason: Nausea Stop: 04/20/17 03:38 Pantoprazole Sodium (Protonix) 40 mg PO DAILY [facility] Stop: 05/13/17 14:14 Last Admin: 03/15/17 08:53 Dose: 40 mg Potassium Chloride (Klor-Con) 20 meq PO DAILY [facility] Stop: 05/15/17 08:59 General: weak, alert HEENT: NC/AT, PERRLA Neck: Supple Lungs: ronchi Abdomen: soft, non-tender, non-distended Extremities: excoriation Neurological: no change - Procedures Procedures: Procedures Procedure Code Date BYPASS TRACHEA TO CUTANEOUS WITH TRACH DEV, OPEN APPROACH [id number] 02/19/17 INCISION OF [place] 60967 02/19/17 INSERT EMERGENCY AIRWAY [id number] 02/19/17 INSERTION OF ENDOTRACHEAL AIRWAY INTO TRACHEA, VIA OPENING [id number] 02/19/17 RESPIRATORY VENTILATION, GREATER THAN 96 CONSECUTIVE HOURS [id number] 02/19/17 VENT MGMT INPAT INIT DAY 07265 02/19/17 VENT MGMT INPAT SUBQ DAY 25096 02/19/17 Internal Medicine Assmt/Plan - Assessment Assessment: s/p trach Acute kidney failure (Acute) 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 Azotemia (Acute) R79.89 Bradycardia (Acute) R00.1 COPD (chronic obstructive pulmonary disease) (Acute) Cardiomegaly (Acute) I51.7 Chest pain (Acute) R07.9 Decubitus ulcer of buttock, 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 Acute respiratory failure - Plan Plan: peg placement tomorrow if stable continue vent support monitor glucose continue ivabx as per id follow up labs in am continue current orders Nutritional Asmnt/Malnutr-PDOC - Dietary Evaluation Malnutrition Findings (Please click <Entered> for more info): Nutritional Asmnt/Malnutrition Start: 02/21/17 18: 20 Text: Status: Complete Freq: Document 02/21/17 18:21 LCANCELMOG (Rec: 02/21/17 18:32 LCANCELMOG [place] [id number]) Nutritional Asmnt/Malnutrition Patient General Information Nutritional Screening High Risk Consult Diagnosis gastric outlet obstruction Pertinent Medical Hx/Surgical Hx HTN, OA, DM, GERD Subjective Information Pt seen sleeping at the time of visit, attempted x 2. Spoke with RN, pt consumed 50% of breakfast and only the soup of lunch today, not much appetite, no complain of N/V. Pt will be NPO from midnight for GI exam tommorrow. Current Diet Order/ Nutrition Support no added salt 4gm, CCHO, no eggs, banana and cereal in morning Pertinent Medications colace, lasix, novolog, levaquin, piperacillin Pertinent Labs 02/20 Na 137, K 4.5, Cl 104, BUN 55, Cr 1.6, Glucose 137, POC 126-199 since admit, Ca 8. 3 Nutritional Hx/Data Height 5 ft 2 in Height (Calculated Centimeters) 157.5 Current Weight (lbs) 213 lb 14.4 oz Weight (Calculated Kilograms) 97.0 Weight (Calculated Grams) 84725.4 [place] Body Weight 110 % [place] Body Weight 194 Body Mass Index (BMI) 39.1 Weight Status Obese GI Symptoms GI Symptoms None Last BM none Difficult in: None Skin Integrity/Comment: multiple maceration, abrasion to right/left medial thigh Current %PO Poor (25-49%) Estimated Nutritional Goals BEE in Kcals: Adj wt of IBW Calories/Kcals/Kg 27-32 Kcals Calculated Protein: Adj wt of IBW Protein g/k-1.2 Protein Calculated 62-74 Fluid: ml Nutritional Problem 1. Problem Problem inadequate PO intake Etiology poor appetite Signs/Symptoms: PO intake 25-50% Malnutrition Alert Protein-Calorie Malnutrition N/A Is there a minimum of two criteria No selected? Query Text:Check all the applicable criteria. A minimum of two criteria are recommended for diagnosis of either severe or non-severe malnutrition. Intervention/Recommendation Comments 1. Continue with current diet as ordered. 2. Monitor PO intake, GI symptons, wt, labs and skin integrity 3. F/U as high risk in 2-3 days, 02/23-02/24 Expected Outcomes/Goals Expected Outcomes/Goals 1. PO intake to meet at least 75% of nutritional needs. 2. Wt stability, skin to remain intact, labs to improve
[2017-03-16] MEDS: INSULIN ASPART SLIDING SCALE 100 UNITS/ML UNIT SUBQ SCH ×4 (00:40→17:09)
[2017-03-16] MEDS: Metoclopramide 5 mg/mL 2mL Vial IVP SCH ×5 (00:58→23:11)
--- NOTE | 2017-03-16 01:36 | Infectious Disease Prog Note ---
Infectious Disease Subjective - Review of Systems Service Date: 03/15/17 Subjective: Remains on vent intubated orally. on the ventilator support. Infectious Disease Objective - Results Result Diagrams: 03/15/17 06:00 03/15/17 06:00 Recent Labs: Laboratory Last Values WBC 13.5 Th/cmm (4.8-10.8) H 03/15/17 06:00 RBC 3.45 Mil/cmm (3.80-5.20) L 03/15/17 06:00 Hgb 10.5 gm/dL (12-16) L 03/15/17 06:00 Hct 30.2 % (41.0-60) L 03/15/17 06:00 MCV 87.6 fl (81-100) 03/15/17 06:00 MCH 30.4 pg (27.0-31.0) 03/15/17 06:00 MCHC Differential 34.7 pg (28.0-36.0) 03/15/17 06:00 RDW 15.3 % (11.5-20.0) 03/15/17 06:00 Plt Count 176 Th/cmm (150-400) D 03/15/17 06:00 MPV 7.8 fl 03/15/17 06:00 Neutrophils % 79.5 % (40.0-80.0) 03/15/17 06:00 Band Neutrophils % 5 % (0-10) 03/06/17 06:00 Lymphocytes % 9.3 % (20.0-50.0) L 03/15/17 06:00 Monocytes % 5.1 % (2.0-10.0) 03/15/17 06:00 Eosinophils % 5.5 % (0.0-5.0) H 03/15/17 06:00 Basophils % 0.6 % (0.0-2.0) 03/15/17 06:00 Neutrophils (Manual) 85 % (40-80) H 03/06/17 06:00 Lymphocytes 4 % (20-50) L 03/06/17 06:00 Monocytes 3 % (2-10) 03/06/17 06:00 Eosinophils 3 % (0-5) 03/06/17 06:00 Metamyelocytes 1 % (0-0) H 02/18/17 23:35 Hypochromia 1+ 02/18/17 23:35 Platelet Estimate DECREASED PLATELETS (NORMAL) 03/06/17 06:00 Platelet Morphology (NORMAL) 03/04/17 08:00 Plt Count 176 Th/cmm (150-750) D 03/15/17 06:00 PT 13.1 SECONDS (9.5-11.5) H 03/15/17 06:00 INR 1.25 (0.5-1.4) 03/15/17 06:00 PTT (Actin FS) 25.4 SECONDS (26.0-38.0) L 03/15/17 06:00 Fibrinogen 237.0 mg/dL (200.0-400.0) 03/15/17 06:00 D-Dimer 2010 ng/mL (100-400) H 03/15/17 06:00 Specimen Source Arterial 03/11/17 09:40 Sample Site Right Radial 03/11/17 09:40 pH 7.29 (7.35-7.45) L 03/11/17 09:40 pCO2 44.0 mmHg (35.0-45.0) 03/11/17 09:40 pO2 66.0 mmHg (80.0-100.0) L 03/11/17 09:40 HCO3 20.6 mEq/L (20.0-26.0) 03/11/17 09:40 Base Excess -5.3 mEq/L (-3.0-3.0) L 03/11/17 09:40 O2 Saturation 90.0 % (92.0-100.0) L 03/11/17 09:40 Jorje Test YES 03/11/17 09:40 Vent Rate 4 03/11/17 09:40 Inspired O2 30 03/11/17 09:40 Tidal Volume 550 03/11/17 09:40 PEEP 5 03/11/17 09:40 Pressure (ins/psv/peep) 15 03/11/17 09:40 Critical Value E.HERNANDEZ 03/11/17 09:40 Sodium 137 mEq/L (136-145) 03/15/17 06:00 Potassium 3.1 mEq/L (3.5-5.1) L 03/15/17 06:00 Chloride 108 mEq/L (98-107) H 03/15/17 06:00 Carbon Dioxide 17.7 mEq/L (21.0-31.0) L 03/15/17 06:00 Anion Gap 14.4 (7.0-16.0) 03/15/17 06:00 BUN 44 mg/dL (7-25) H 03/15/17 06:00 Creatinine 1.6 mg/dL (0.6-1.2) H 03/15/17 06:00 Est GFR ( Amer) 41.1 ml/min (>90) 03/15/17 06:00 Est GFR (Non-Af Amer) 34.0 ml/min 03/15/17 06:00 BUN/Creatinine Ratio 27.5 03/15/17 06:00 Glucose 163 mg/dL (70-105) H 03/15/17 06:00 POC Glucose 137 MG/DL (70 - 105) H 03/15/17 06:04 Hemoglobin A1c % 5.8 % (4.0-6.0) 02/22/17 10:38 Whole Bld Lactic Acid 2.40 mmol/L (0.60-1.99) H* 02/27/17 15:04 Calcium 8.0 mg/dL (8.6-10.3) L 03/15/17 06:00 Phosphorus 2.5 mg/dL (2.5-5.0) 03/01/17 09:15 Magnesium 2.1 mg/dL (1.9-2.7) 03/01/17 09:15 Total Bilirubin 0.5 mg/dL (0.3-1.0) 03/11/17 08:15 Direct Bilirubin 0.09 mg/dL (0.0-0.2) 02/18/17 23:35 AST 19 U/L (13-39) 03/11/17 08:15 ALT 5 U/L (7-52) L 03/11/17 08:15 Alkaline Phosphatase 69 U/L (34-104) 03/11/17 08:15 Ammonia 38 umol/L (16-53) 03/01/17 17:28 B-Natriuretic Peptide 158.0 pg/mL (5.0-100.0) H 03/04/17 15:39 Total Protein 5.2 gm/dL (6.0-8.3) L 03/11/17 08:15 Albumin 2.9 gm/dL (3.7-5.3) L 03/11/17 08:15 Globulin 2.3 gm/dL 03/11/17 08:15 Albumin/Globulin Ratio 1.3 (1.0-1.8) 03/11/17 08:15 Amylase 36 U/L (29-103) 02/18/17 23:35 Lipase 10 U/L (11-82) L 02/18/17 23:35 Vitamin B12 860 pg/mL (232-1245) 02/26/17 04:45 Free T4 1.04 ng/dL (0.82-1.77) 02/25/17 04:50 Free T3 0.7 pg/mL (2.0-4.4) L 02/25/17 04:50 TSH 0.84 uIU/ml (0.34-5.60) 02/25/17 04:50 Total Cortisol 12.3 02/24/17 07:50 Urine Source [place] 02/27/17 15:00 Urine Color YELLOW 02/27/17 15:00 Urine Clarity CLOUDY (CLEAR) H 02/27/17 15:00 Urine pH 5.5 (4.6 - 8.0) 02/27/17 15:00 Ur Specific [place] <= 1.005 (1.005-1.030) 02/27/17 15:00 Urine Protein TRACE mg/dL (NEGATIVE) 02/27/17 15:00 Urine Glucose (UA) NEGATIVE mg/dL (NEGATIVE) 02/27/17 15:00 Urine Ketones NEGATIVE mg/dL (NEGATIVE) 02/27/17 15:00 Urine Blood LARGE (NEGATIVE) H 02/27/17 15:00 Urine Nitrate NEGATIVE (NEGATIVE) 02/27/17 15:00 Urine Bilirubin NEGATIVE (NEGATIVE) 02/27/17 15:00 Urine Urobilinogen 0.2 E.U./dL (0.2 - 1.0) 02/27/17 15:00 Ur Leukocyte Esterase LARGE (NEGATIVE) H 02/27/17 15:00 Urine RBC 10-25 /hpf (0-5) H 02/27/17 15:00 Urine WBC >100 /hpf (0-5) H 02/27/17 15:00 Ur Epithelial Cells MODERATE /lpf (FEW) 02/27/17 15:00 Urine Bacteria MODERATE /hpf (NONE SEEN) H 02/27/17 15:00 Urine Yeast MODERATE /hpf (NONE SEEN) H 02/20/17 16:15 Stool Occult Blood NEGATIVE (NEGATIVE) 03/11/17 17:25 Blood Type A POSITIVE 03/13/17 09:15 Antibody Screen NEGATIVE 03/13/17 09:15 Crossmatch See Detail 03/13/17 09:15 - Physical Exam Vitals and I&O: Vital Signs Temp 98 F 03/16/17 00:00 Pulse 83 03/16/17 00:00 Resp 12 03/16/17 00:00 BP 100/57 03/16/17 00:00 Pulse Ox 99 03/16/17 00:00 Intake & Output 03/15/17 03/15/17 03/16/17 06:59 18:59 06:59 Intake Total 92.126 34.384 Output Total 1550 Balance 92.126 -1515.616 Weight (lbs) 122.47 kg Intake: Intake, IV Amount 92.126 34.384 Furosemide 100 mg In 36.333 28.708 Sodium Chloride 0.9% 40 ml @ 2.5 mls/hr IV TITR [facility] Rx#:[id number] Norepinephrine 8 mg In 55.793 5.676 Sodium Chloride 0.9% 250 ml @ Per Protocol IV TITR [facility] Rx#:[id number] Output: Urine 1550 Other: # Bowel Movements 1 Active Medications: Current Medications Acetaminophen (Tylenol) 650 mg PO Q4HR PRN PRN Reason: Pain (Mild) Stop: 04/20/17 12:01 Last Admin: 03/06/17 03:23 Dose: 650 mg Albuterol/Ipratropium (Duoneb Neb) 3 ml HHN Q4HRT PRN PRN Reason: Wheezing Stop: 04/27/17 19:59 Last Admin: 02/28/17 03:18 Dose: 3 ml Albuterol/Ipratropium (Duoneb Neb) 3 ml HHN [id number] [facility] Stop: 04/27/17 19:59 Last Admin: 03/15/17 19:27 Dose: 3 ml Chlorhexidine Gluconate (Peridex) 15 ml MM 0800,2000 [facility] Stop: 04/28/17 19:59 Last Admin: 03/15/17 20:23 Dose: 15 ml Diltiazem HCl (Cardizem) 5 mg IVP Q4H PRN PRN Reason: HR > 120 Stop: 04/27/17 19:59 Last Admin: 02/27/17 04:59 Dose: 5 mg Docusate Sodium (Colace) 100 mg PO BID [facility] Stop: 04/20/17 16:59 Last Admin: 03/15/17 17:28 Dose: 100 mg Hydromorphone HCl (Dilaudid) 1 mg IVP Q4HR PRN PRN Reason: Severe Pain Stop: 05/13/17 13:01 Last Admin: 03/14/17 18:37 Dose: 1 mg Phenylephrine HCl 10 mg/ (Sodium Chloride) 250 mls @ 0 mls/hr IV TITR [facility]; Per Protocol PRN Reason: Protocol Stop: 04/28/17 07:59 Norepinephrine Bitartrate 8 mg (/ Sodium Chloride) 258 mls @ 0 mls/hr IV TITR [facility]; Per Protocol PRN Reason: Protocol Stop: 04/28/17 09:59 Last Titration: 03/15/17 07:26 Dose: 0 mcg/min, 0 mls/hr Furosemide 100 mg/ Sodium (Chloride) 50 mls @ 2.5 mls/hr IV TITR [facility] Stop: 05/13/17 14:29 Last Admin: 03/15/17 17:28 Dose: 2.5 mls/hr Insulin Aspart (Novolog Insulin Sliding Scale) 0 units SUBQ Q6H [facility] PRN Reason: Protocol Stop: 05/03/17 00:00 Last Admin: 03/16/17 00:40 Dose: 2 units Metoclopramide HCl (Reglan) 5 mg IVP Q6HR [facility] Stop: 05/05/17 17:59 Last Admin: 03/16/17 00:58 Dose: 5 mg Metolazone (Zaroxolyn) 5 mg PO DAILY [facility] Stop: 05/10/17 13:14 Last Admin: 03/15/17 08:53 Dose: 5 mg Mirtazapine (Remeron) 15 mg PO HS [facility] PRN Reason: Protocol Stop: 04/26/17 20:59 Last Admin: 03/15/17 20:26 Dose: 15 mg Miscellaneous (Probiotic Screen) 1 ea PRN PRN PRN Reason: PROTOCOL Stop: 04/21/17 16:25 Miscellaneous (Communication Order) 1 ea MC PRN [facility] Stop: 05/10/17 13:14 Morphine Sulfate (Morphine) 1 mg IVP Q4HR PRN PRN Reason: Severe Pain Stop: 05/04/17 14:13 Last Admin: 03/15/17 17:27 Dose: 1 mg Nitroglycerin (Nitrostat) 0.4 mg SL Q5MIN PRN PRN Reason: Chest Pain Stop: 04/20/17 12:01 Nystatin (Nystop) 100,000 units TP BID PRN PRN Reason: SKIN EXCORIATIONS Stop: 04/21/17 15:35 Last Admin: 03/08/17 06:00 Dose: 100,000 units Ondansetron HCl (Zofran) 4 mg IV Q6H PRN PRN Reason: Nausea Stop: 04/20/17 03:38 Pantoprazole Sodium (Protonix) 40 mg PO DAILY [facility] Stop: 05/13/17 14:14 Last Admin: 03/15/17 08:53 Dose: 40 mg Potassium Chloride (Klor-Con) 20 meq PO DAILY [facility] Stop: 05/15/17 08:59 General: no acute distress, well developed, well nourished HEENT: atraumatic, normocephalic, PERRLA Neck: supple, no thyromegaly Cardiovascular: S1S2, regular Lungs: clear to auscultation bilaterally, clear to percussion Abdomen: soft, no tender, no distended Extremities: no cyanosis, no clubbing, no edema Neurological: awake, alert, oriented - Procedures Procedures: Procedures Procedure Code Date BYPASS TRACHEA TO CUTANEOUS WITH TRACH DEV, OPEN APPROACH [id number] 02/19/17 INCISION OF WINDPIPE 33585 02/19/17 INSERT EMERGENCY AIRWAY 23363 02/19/17 INSERTION OF ENDOTRACHEAL AIRWAY INTO TRACHEA, VIA OPENING [id number] 02/19/17 RESPIRATORY VENTILATION, GREATER THAN 96 CONSECUTIVE HOURS [id number] 02/19/17 VENT MGMT INPAT INIT DAY 79935 02/19/17 VENT MGMT INPAT SUBQ DAY 10500 02/19/17 Infectious Disease Assmt/Plan - Problem List Patient Problems: All Active Problems Acute kidney failure (Acute) 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 Sepsis. treated. mild leukocytosis, monitor. 2. Pneumonia. 3. UTI, Candiduria. 4. Renal failure. 5. Hypotension, improving 6. VDRF. 7. Thrombocytopenia. DIC. improved. - Plan Plan: off antibiotics. Nutritional Asmnt/Malnutr-PDOC - Dietary Evaluation Malnutrition Findings (Please click <Entered> for more info): Nutritional Asmnt/Malnutrition Start: 02/21/17 18: 20 Text: Status: Complete Freq: Document 02/21/17 18:21 LCHENG (Rec: 02/21/17 18:32 LCHENG [id number]) Nutritional Asmnt/Malnutrition Patient General Information Nutritional Screening High Risk Consult Diagnosis gastric outlet obstruction Pertinent Medical Hx/Surgical Hx HTN, OA, DM, GERD Subjective Information Pt seen sleeping at the time of visit, attempted x 2. Spoke with RN, pt consumed 50% of breakfast and only the soup of lunch today, not much appetite, no complain of N/V. Pt will be NPO from midnight for GI exam tommorrow. Current Diet Order/ Nutrition Support no added salt 4gm, CCHO, no eggs, banana and cereal in morning Pertinent Medications colace, lasix, novolog, levaquin, piperacillin Pertinent Labs 02/20 Na 137, K 4.5, Cl 104, BUN 55, Cr 1.6, Glucose 137, POC 126-199 since admit, Ca 8. 3 Nutritional Hx/Data Height 1.57 m Height (Calculated Centimeters) 157.5 Current Weight (lbs) 97.023 kg Weight (Calculated Kilograms) 97.0 Weight (Calculated Grams) 56015.4 [place] Body Weight 110 % [place] Body Weight 194 Body Mass Index (BMI) 39.1 Weight Status Obese GI Symptoms GI Symptoms None Last BM none Difficult in: None Skin Integrity/Comment: multiple maceration, abrasion to right/left medial thigh Current %PO Poor (25-49%) Estimated Nutritional Goals BEE in Kcals: Adj wt of IBW Calories/Kcals/Kg 27-32 Kcals Calculated Protein: Adj wt of IBW Protein g/k-1.2 Protein Calculated 62-74 Fluid: ml Nutritional Problem 1. Problem Problem inadequate PO intake Etiology poor appetite Signs/Symptoms: PO intake 25-50% Malnutrition Alert Protein-Calorie Malnutrition N/A Is there a minimum of two criteria No selected? Query Text:Check all the applicable criteria. A minimum of two criteria are recommended for diagnosis of either severe or non-severe malnutrition. Intervention/Recommendation Comments 1. Continue with current diet as ordered. 2. Monitor PO intake, GI symptons, wt, labs and skin integrity 3. F/U as high risk in 2-3 days, 02/23-02/24 Expected Outcomes/Goals Expected Outcomes/Goals 1. PO intake to meet at least 75% of nutritional needs. 2. Wt stability, skin to remain intact, labs to improve
[2017-03-16] MEDS: Morphine Sulfate 2 mg/mL 1mL Syr IVP PRN ×5 (01:53→23:11)
[2017-03-16 06:11] LABS: % BASOPHILS 0.7 % (0.0-2.0); % EOSINOPHILS 6.8 % (0.0-5.0); % MONOCYTES 8.2 % (2.0-10.0); % NEUTROPHILS 72.3 % (40.0-80.0); BASOPHILE ABSOLUTE 0.1 Th/cumm (0-0.2); EOSINOPHILE ABSOLUTE 0.8 Th/cmm (0.1-0.4); HEMATOCRIT 31.4 % (41.0-60); HEMOGLOBIN 10.4 gm/dL (12-16); LYMPHOCYTE ABSOLUTE 1.4 Th/cmm (1.5-3.0); MEAN CELL VOLUME 88.3 fl (81-100); MEAN CORPUSCULAR HEMOGLOBIN 29.3 pg (27.0-31.0); MEAN CORPUSCULAR HGB CONC 33.2 pg (28.0-36.0); MEAN PLATELET VOLUME 7.5 fl; NEUTROPHILE ABSOLUTE 8.7 Th/cmm (1.8-8.0); PLATELET COUNT 153 Th/cmm (150-400); RED BLOOD COUNT 3.55 Mil/cmm (3.80-5.20); RED CELL DISTRIBUTION WIDTH 15.5 % (11.5-20.0)
[2017-03-16 06:27] LABS: ANION GAP 11.2 (7.0-16.0); CALCIUM SERUM 8.3 mg/dL (8.6-10.3); CARBON DIOXIDE 21.9 mEq/L (21.0-31.0); CREATININE - SERUM 1.5 mg/dL (0.6-1.2); GFR AFRICAN-AMERICAN 44.3 ml/min (>90); GFR NON AFRICAN-AMERICAN 36.6 ml/min; INR 1.3 (0.5-1.4); POTASSIUM SERUM 3.1 mEq/L (3.5-5.1); PROTHROMBIN TIME (TEST) 13.7 SECONDS (9.5-11.5)
[2017-03-16] MEDS: Albuterol/Ipratropium Neb 3 ML AERS HHN SCH ×3 (08:00→19:14)
[2017-03-16] MEDS: Metolazone 5 MG TAB PO SCH (08:36)
[2017-03-16] MEDS: HYDROmorphone 2 mg/mL 1mL Vial IVP PRN (08:36)
[2017-03-16] MEDS: Multivitamin w/ Minerals Tab PO SCH (08:36)
[2017-03-16] MEDS: Chlorhexidine Gluconate 0.12% 15mL Mouthwash MM SCH ×2 (08:37→20:31)
[2017-03-16] MEDS: Pantoprazole 40 mg/Packet PO SCH (08:37)
--- NOTE | 2017-03-16 08:39 | GI Progress Note ---
Subjective - Review of Systems Service Date: 03/16/17 Subjective: Alert and oriented. NG tube in place Objective - Results Result Diagrams: 03/16/17 06:00 03/16/17 06:00 Recent Labs: Laboratory Last Values WBC 12.0 Th/cmm (4.8-10.8) H 03/16/17 06:00 RBC 3.55 Mil/cmm (3.80-5.20) L 03/16/17 06:00 Hgb 10.4 gm/dL (12-16) L 03/16/17 06:00 Hct 31.4 % (41.0-60) L 03/16/17 06:00 MCV 88.3 fl (81-100) 03/16/17 06:00 MCH 29.3 pg (27.0-31.0) 03/16/17 06:00 MCHC Differential 33.2 pg (28.0-36.0) 03/16/17 06:00 RDW 15.5 % (11.5-20.0) 03/16/17 06:00 Plt Count 153 Th/cmm (150-400) 03/16/17 06:00 MPV 7.5 fl 03/16/17 06:00 Neutrophils % 72.3 % (40.0-80.0) 03/16/17 06:00 Band Neutrophils % 5 % (0-10) 03/06/17 06:00 Lymphocytes % 12.0 % (20.0-50.0) L 03/16/17 06:00 Monocytes % 8.2 % (2.0-10.0) 03/16/17 06:00 Eosinophils % 6.8 % (0.0-5.0) H 03/16/17 06:00 Basophils % 0.7 % (0.0-2.0) 03/16/17 06:00 Neutrophils (Manual) 85 % (40-80) H 03/06/17 06:00 Lymphocytes 4 % (20-50) L 03/06/17 06:00 Monocytes 3 % (2-10) 03/06/17 06:00 Eosinophils 3 % (0-5) 03/06/17 06:00 Metamyelocytes 1 % (0-0) H 02/18/17 23:35 Hypochromia 1+ 12/22/17 23:35 Platelet Estimate DECREASED PLATELETS (NORMAL) 03/06/17 06:00 Platelet Morphology (NORMAL) 03/04/17 08:00 Plt Count 153 Th/cmm (150-750) 03/16/17 06:00 PT 13.7 SECONDS (9.5-11.5) H 03/16/17 06:00 INR 1.30 (0.5-1.4) 03/16/17 06:00 PTT (Actin FS) 33.4 SECONDS (26.0-38.0) 03/16/17 06:00 Fibrinogen 259.0 mg/dL (200.0-400.0) 03/16/17 06:00 D-Dimer 2380 ng/mL (100-400) H 03/16/17 06:00 Specimen Source Arterial 03/11/17 09:40 Sample Site Right Radial 03/11/17 09:40 pH 7.29 (7.35-7.45) L 03/11/17 09:40 pCO2 44.0 mmHg (35.0-45.0) 03/11/17 09:40 pO2 66.0 mmHg (80.0-100.0) L 03/11/17 09:40 HCO3 20.6 mEq/L (20.0-26.0) 03/11/17 09:40 Base Excess -5.3 mEq/L (-3.0-3.0) L 03/11/17 09:40 O2 Saturation 90.0 % (92.0-100.0) L 03/11/17 09:40 Jorje Test YES 03/11/17 09:40 Vent Rate 4 03/11/17 09:40 Inspired O2 30 03/11/17 09:40 Tidal Volume 550 03/11/17 09:40 PEEP 5 03/11/17 09:40 Pressure (ins/psv/peep) 15 03/11/17 09:40 Critical Value E.HERNANDEZ 03/11/17 09:40 Sodium 139 mEq/L (136-145) 03/16/17 06:00 Potassium 3.1 mEq/L (3.5-5.1) L 03/16/17 06:00 Chloride 109 mEq/L (98-107) H 03/16/17 06:00 Carbon Dioxide 21.9 mEq/L (21.0-31.0) 03/16/17 06:00 Anion Gap 11.2 (7.0-16.0) 03/16/17 06:00 BUN 44 mg/dL (7-25) H 03/16/17 06:00 Creatinine 1.5 mg/dL (0.6-1.2) H 03/16/17 06:00 Est GFR ( Amer) 44.3 ml/min (>90) 03/16/17 06:00 Est GFR (Non-Af Amer) 36.6 ml/min 03/16/17 06:00 BUN/Creatinine Ratio 29.3 03/16/17 06:00 Glucose 119 mg/dL (70-105) H 03/16/17 06:00 POC Glucose 137 MG/DL (70 - 105) H 03/15/17 06:04 Hemoglobin A1c % 5.8 % (4.0-6.0) 02/22/17 10:38 Whole Bld Lactic Acid 2.40 mmol/L (0.60-1.99) H* 02/27/17 15:04 Calcium 8.3 mg/dL (8.6-10.3) L 03/16/17 06:00 Phosphorus 2.5 mg/dL (2.5-5.0) 03/01/17 09:15 Magnesium 2.1 mg/dL (1.9-2.7) 03/01/17 09:15 Total Bilirubin 0.5 mg/dL (0.3-1.0) 03/11/17 08:15 Direct Bilirubin 0.09 mg/dL (0.0-0.2) 02/18/17 23:35 AST 19 U/L (13-39) 03/11/17 08:15 ALT 5 U/L (7-52) L 03/11/17 08:15 Alkaline Phosphatase 69 U/L (34-104) 03/11/17 08:15 Ammonia 38 umol/L (16-53) 03/01/17 17:28 B-Natriuretic Peptide 158.0 pg/mL (5.0-100.0) H 03/04/17 15:39 Total Protein 5.2 gm/dL (6.0-8.3) L 03/11/17 08:15 Albumin 2.9 gm/dL (3.7-5.3) L 03/11/17 08:15 Globulin 2.3 gm/dL 03/11/17 08:15 Albumin/Globulin Ratio 1.3 (1.0-1.8) 03/11/17 08:15 Amylase 36 U/L (29-103) 02/18/17 23:35 Lipase 10 U/L (11-82) L 02/18/17 23:35 Vitamin B12 860 pg/mL (232-1245) 02/26/17 04:45 Free T4 1.04 ng/dL (0.82-1.77) 02/25/17 04:50 Free T3 0.7 pg/mL (2.0-4.4) L 02/25/17 04:50 TSH 0.84 uIU/ml (0.34-5.60) 02/25/17 04:50 Total Cortisol 12.3 02/24/17 07:50 Urine Source [place] 02/27/17 15:00 Urine Color YELLOW 02/27/17 15:00 Urine Clarity CLOUDY (CLEAR) H 02/27/17 15:00 Urine pH 5.5 (4.6 - 8.0) 02/27/17 15:00 Ur Specific [place] <= 1.005 (1.005-1.030) 02/27/17 15:00 Urine Protein TRACE mg/dL (NEGATIVE) 02/27/17 15:00 Urine Glucose (UA) NEGATIVE mg/dL (NEGATIVE) 02/27/17 15:00 Urine Ketones NEGATIVE mg/dL (NEGATIVE) 02/27/17 15:00 Urine Blood LARGE (NEGATIVE) H 02/27/17 15:00 Urine Nitrate NEGATIVE (NEGATIVE) 02/27/17 15:00 Urine Bilirubin NEGATIVE (NEGATIVE) 02/27/17 15:00 Urine Urobilinogen 0.2 E.U./dL (0.2 - 1.0) 02/27/17 15:00 Ur Leukocyte Esterase LARGE (NEGATIVE) H 02/27/17 15:00 Urine RBC 10-25 /hpf (0-5) H 02/27/17 15:00 Urine WBC >100 /hpf (0-5) H 02/27/17 15:00 Ur Epithelial Cells MODERATE /lpf (FEW) 02/27/17 15:00 Urine Bacteria MODERATE /hpf (NONE SEEN) H 02/27/17 15:00 Urine Yeast MODERATE /hpf (NONE SEEN) H 02/20/17 16:15 Stool Occult Blood NEGATIVE (NEGATIVE) 03/11/17 17:25 Blood Type A POSITIVE 03/13/17 09:15 Antibody Screen NEGATIVE 03/13/17 09:15 Crossmatch See Detail 03/13/17 09:15 - Physical Exam Vitals and I&O: Vital Signs Temp 98.9 F 03/16/17 04:00 Pulse 94 03/16/17 08:05 Resp 12 03/16/17 07:00 BP 106/53 03/16/17 07:00 Pulse Ox 100 03/16/17 08:05 Intake & Output 03/15/17 03/16/17 03/16/17 18:59 06:59 18:59 Intake Total 34.384 320 Output Total 1550 1350 Balance -1515.616 -1030 Weight (lbs) 122.47 kg 120.656 kg Intake: Intake, IV Amount 34.384 Furosemide 100 mg In 28.708 Sodium Chloride 0.9% 40 ml @ 2.5 mls/hr IV TITR [facility] Rx#:[id number] Norepinephrine 8 mg In 5.676 Sodium Chloride 0.9% 250 ml @ Per Protocol IV TITR [facility] Rx#:[id number] Tube Feeding 220 Other 100 Output: Urine 1550 1350 Other: # Bowel Movements 1 1 Active Medications: Current Medications Acetaminophen (Tylenol) 650 mg PO Q4HR PRN PRN Reason: Pain (Mild) Stop: 04/20/17 12:01 Last Admin: 03/06/17 03:23 Dose: 650 mg Albuterol/Ipratropium (Duoneb Neb) 3 ml HHN Q4HRT PRN PRN Reason: Wheezing Stop: 04/27/17 19:59 Last Admin: 02/28/17 03:18 Dose: 3 ml Albuterol/Ipratropium (Duoneb Neb) 3 ml HHN [id number] [facility] Stop: 04/27/17 19:59 Last Admin: 03/16/17 08:00 Dose: 3 ml Chlorhexidine Gluconate (Peridex) 15 ml MM 0800,2000 [facility] Stop: 04/28/17 19:59 Last Admin: 03/15/17 20:23 Dose: 15 ml Diltiazem HCl (Cardizem) 5 mg IVP Q4H PRN PRN Reason: HR > 120 Stop: 04/27/17 19:59 Last Admin: 02/27/17 04:59 Dose: 5 mg Docusate Sodium (Colace) 100 mg PO BID [facility] Stop: 04/20/17 16:59 Last Admin: 03/15/17 17:28 Dose: 100 mg Hydromorphone HCl (Dilaudid) 1 mg IVP Q4HR PRN PRN Reason: Severe Pain Stop: 05/13/17 13:01 Last Admin: 03/14/17 18:37 Dose: 1 mg Phenylephrine HCl 10 mg/ (Sodium Chloride) 250 mls @ 0 mls/hr IV TITR [facility]; Per Protocol PRN Reason: Protocol Stop: 04/28/17 07:59 Norepinephrine Bitartrate 8 mg (/ Sodium Chloride) 258 mls @ 0 mls/hr IV TITR [facility]; Per Protocol PRN Reason: Protocol Stop: 04/28/17 09:59 Last Titration: 03/15/17 07:26 Dose: 0 mcg/min, 0 mls/hr Furosemide 100 mg/ Sodium (Chloride) 50 mls @ 2.5 mls/hr IV TITR [facility] Stop: 05/13/17 14:29 Last Admin: 03/15/17 17:28 Dose: 2.5 mls/hr Insulin Aspart (Novolog Insulin Sliding Scale) 0 units SUBQ Q6H [facility] PRN Reason: Protocol Stop: 05/03/17 00:00 Last Admin: 03/16/17 06:03 Dose: Not Given Metoclopramide HCl (Reglan) 5 mg IVP Q6HR [facility] Stop: 05/05/17 17:59 Last Admin: 03/16/17 05:57 Dose: 5 mg Metolazone (Zaroxolyn) 5 mg PO DAILY [facility] Stop: 05/10/17 13:14 Last Admin: 03/15/17 08:53 Dose: 5 mg Mirtazapine (Remeron) 15 mg PO HS PATRIA PRN Reason: Protocol Stop: 04/26/17 20:59 Last Admin: 03/15/17 20:26 Dose: 15 mg Miscellaneous (Probiotic Screen) 1 ea MC PRN PRN PRN Reason: PROTOCOL Stop: 04/21/17 16:25 Miscellaneous (Communication Order) 1 ea MC PRN PATRIA Stop: 05/10/17 13:14 Morphine Sulfate (Morphine) 1 mg IVP Q4HR PRN PRN Reason: Severe Pain Stop: 05/04/17 14:13 Last Admin: 03/16/17 05:57 Dose: 1 mg Nitroglycerin (Nitrostat) 0.4 mg SL Q5MIN PRN PRN Reason: Chest Pain Stop: 04/20/17 12:01 Nystatin (Nystop) 100,000 units TP BID PRN PRN Reason: SKIN EXCORIATIONS Stop: 04/21/17 15:35 Last Admin: 03/08/17 06:00 Dose: 100,000 units Ondansetron HCl (Zofran) 4 mg IV Q6H PRN PRN Reason: Nausea Stop: 04/20/17 03:38 Pantoprazole Sodium (Protonix) 40 mg PO DAILY PATRIA Stop: 05/13/17 14:14 Last Admin: 03/15/17 08:53 Dose: 40 mg Potassium Chloride (Klor-Con) 20 meq PO DAILY PATRIA Stop: 05/15/17 08:59 General: Alert, No acute distress HEENT: Atraumatic (on ETT/VENT), EOMI Neck: Supple, JVD, +2 carotid pulse wo bruit Cardiovascular: Regular rate Lungs: Other (coarse rhonchi) Abdomen: Bowel sounds, Soft Extremities: Edema, Other ((+3) bipedal edema, decrease right UE edema) Neurological: Sensation intact Skin: no Rash Psych/Mental Status: Mood NL - Procedures Procedures: Procedures Procedure Code Date BYPASS TRACHEA TO CUTANEOUS WITH TRACH DEV, OPEN APPROACH [id number] 02/19/17 INCISION OF [place] [id number] 02/19/17 INSERT EMERGENCY AIRWAY [id number] 02/19/17 INSERTION OF ENDOTRACHEAL AIRWAY INTO TRACHEA, VIA OPENING [id number] 02/19/17 RESPIRATORY VENTILATION, GREATER THAN 96 CONSECUTIVE HOURS [id number] 02/19/17 VENT MGMT INPAT INIT DAY 44672 02/19/17 VENT MGMT INPAT SUBQ DAY 82282 02/19/17 Assessment/Plan - Problem List Patient Problems: All Active Problems Acute kidney failure (Acute) 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 Azotemia (Acute) R79.89 Bradycardia (Acute) R00.1 COPD (chronic obstructive pulmonary disease) (Acute) Cardiomegaly (Acute) I51.7 Chest pain (Acute) R07.9 Decubitus ulcer of buttock, 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 - Assessment Assessment: 71 YO FEMALE WITH ALLEGED GASTRIC OUTLET OBSTRUCTION EGD this admission SHOWED GASTRITIS WITHOUT OBSTRUCTION MICAELA NGT FEEDS SBFT NEG 1.CONT NGT FEEDS MICAELA 2.CONT SUPP CARE 3.I spoke to pt re PEG tube. She DOES NOT want this at this time and would like to try eating first. Swallow eval ordered.
--- NOTE | 2017-03-16 08:40 | Diagnostic Imaging Report ---
CHEST X-RAY: AP view INDICATION: CHF COMPARISON: Chest x-ray 03/13/2017 FINDINGS: The prior ET tube is been replaced for a new tracheostomy tube. NG tube is noted with tip in the stomach. Left chest wall AICD stable. Persistent CHF and bilateral effusions are noted. Cardiomegaly is noted. IMPRESSION: Interval removal of the ET tube and placement of any tracheostomy tube. Persistent CHF and bilateral effusions. There is probable superimposed pneumonia Cardiomegaly.
[2017-03-16] MEDS ORDERED: Potassium Chloride 20 mEq ER Tab PO SCH (09:00)
--- NOTE | 2017-03-16 11:44 | General Progress Note ---
Subjective - Review of Systems Events since last encounter: remains on vent in no acute distress Objective - Results Result Diagrams: 03/16/17 06:00 03/16/17 06:00 Recent Labs: Laboratory Last Values WBC 12.0 Th/cmm (4.8-10.8) H 03/16/17 06:00 RBC 3.55 Mil/cmm (3.80-5.20) L 03/16/17 06:00 Hgb 10.4 gm/dL (12-16) L 03/16/17 06:00 Hct 31.4 % (41.0-60) L 03/16/17 06:00 MCV 88.3 fl (81-100) 03/16/17 06:00 MCH 29.3 pg (27.0-31.0) 03/16/17 06:00 MCHC Differential 33.2 pg (28.0-36.0) 03/16/17 06:00 RDW 15.5 % (11.5-20.0) 03/16/17 06:00 Plt Count 153 Th/cmm (150-400) 03/16/17 06:00 MPV 7.5 fl 03/16/17 06:00 Neutrophils % 72.3 % (40.0-80.0) 03/16/17 06:00 Band Neutrophils % 5 % (0-10) 03/06/17 06:00 Lymphocytes % 12.0 % (20.0-50.0) L 03/16/17 06:00 Monocytes % 8.2 % (2.0-10.0) 03/16/17 06:00 Eosinophils % 6.8 % (0.0-5.0) H 03/16/17 06:00 Basophils % 0.7 % (0.0-2.0) 03/16/17 06:00 Neutrophils (Manual) 85 % (40-80) H 03/06/17 06:00 Lymphocytes 4 % (20-50) L 03/06/17 06:00 Monocytes 3 % (2-10) 03/06/17 06:00 Eosinophils 3 % (0-5) 03/06/17 06:00 Metamyelocytes 1 % (0-0) H 02/18/17 23:35 Hypochromia 1+ 02/18/17 23:35 Platelet Estimate DECREASED PLATELETS (NORMAL) 03/06/17 06:00 Platelet Morphology (NORMAL) 03/04/17 08:00 Plt Count 153 Th/cmm (150-750) 03/16/17 06:00 PT 13.7 SECONDS (9.5-11.5) H 03/16/17 06:00 INR 1.30 (0.5-1.4) 03/16/17 06:00 PTT (Actin FS) 33.4 SECONDS (26.0-38.0) 03/16/17 06:00 Fibrinogen 259.0 mg/dL (200.0-400.0) 03/16/17 06:00 D-Dimer 2380 ng/mL (100-400) H 03/16/17 06:00 Specimen Source Arterial 03/11/17 09:40 Sample Site Right Radial 03/11/17 09:40 pH 7.29 (7.35-7.45) L 03/11/17 09:40 pCO2 44.0 mmHg (35.0-45.0) 03/11/17 09:40 pO2 66.0 mmHg (80.0-100.0) L 03/11/17 09:40 HCO3 20.6 mEq/L (20.0-26.0) 03/11/17 09:40 Base Excess -5.3 mEq/L (-3.0-3.0) L 03/11/17 09:40 O2 Saturation 90.0 % (92.0-100.0) L 03/11/17 09:40 Jorje Test YES 03/11/17 09:40 Vent Rate 4 03/11/17 09:40 Inspired O2 30 03/11/17 09:40 Tidal Volume 550 03/11/17 09:40 PEEP 5 03/11/17 09:40 Pressure (ins/psv/peep) 15 03/11/17 09:40 Critical Value E.HERNANDEZ 03/11/17 09:40 Sodium 139 mEq/L (136-145) 03/16/17 06:00 Potassium 3.1 mEq/L (3.5-5.1) L 03/16/17 06:00 Chloride 109 mEq/L (98-107) H 03/16/17 06:00 Carbon Dioxide 21.9 mEq/L (21.0-31.0) 03/16/17 06:00 Anion Gap 11.2 (7.0-16.0) 03/16/17 06:00 BUN 44 mg/dL (7-25) H 03/16/17 06:00 Creatinine 1.5 mg/dL (0.6-1.2) H 03/16/17 06:00 Est GFR ( Amer) 44.3 ml/min (>90) 03/16/17 06:00 Est GFR (Non-Af Amer) 36.6 ml/min 03/16/17 06:00 BUN/Creatinine Ratio 29.3 03/16/17 06:00 Glucose 119 mg/dL (70-105) H 03/16/17 06:00 POC Glucose 137 MG/DL (70 - 105) H 03/15/17 06:04 Hemoglobin A1c % 5.8 % (4.0-6.0) 02/22/17 10:38 Whole Bld Lactic Acid 2.40 mmol/L (0.60-1.99) H* 02/27/17 15:04 Calcium 8.3 mg/dL (8.6-10.3) L 03/16/17 06:00 Phosphorus 2.5 mg/dL (2.5-5.0) 03/01/17 09:15 Magnesium 2.1 mg/dL (1.9-2.7) 03/01/17 09:15 Total Bilirubin 0.5 mg/dL (0.3-1.0) 03/11/17 08:15 Direct Bilirubin 0.09 mg/dL (0.0-0.2) 02/18/17 23:35 AST 19 U/L (13-39) 03/11/17 08:15 ALT 5 U/L (7-52) L 03/11/17 08:15 Alkaline Phosphatase 69 U/L (34-104) 03/11/17 08:15 Ammonia 38 umol/L (16-53) 03/01/17 17:28 B-Natriuretic Peptide 158.0 pg/mL (5.0-100.0) H 03/04/17 15:39 Total Protein 5.2 gm/dL (6.0-8.3) L 03/11/17 08:15 Albumin 2.9 gm/dL (3.7-5.3) L 03/11/17 08:15 Globulin 2.3 gm/dL 03/11/17 08:15 Albumin/Globulin Ratio 1.3 (1.0-1.8) 03/11/17 08:15 Amylase 36 U/L (29-103) 02/18/17 23:35 Lipase 10 U/L (11-82) L 02/18/17 23:35 Vitamin B12 860 pg/mL (232-1245) 02/26/17 04:45 Free T4 1.04 ng/dL (0.82-1.77) 02/25/17 04:50 Free T3 0.7 pg/mL (2.0-4.4) L 02/25/17 04:50 TSH 0.84 uIU/ml (0.34-5.60) 02/25/17 04:50 Total Cortisol 12.3 02/24/17 07:50 Urine Source [place] 02/27/17 15:00 Urine Color YELLOW 02/27/17 15:00 Urine Clarity CLOUDY (CLEAR) H 02/27/17 15:00 Urine pH 5.5 (4.6 - 8.0) 02/27/17 15:00 Ur Specific [place] <= 1.005 (1.005-1.030) 02/27/17 15:00 Urine Protein TRACE mg/dL (NEGATIVE) 02/27/17 15:00 Urine Glucose (UA) NEGATIVE mg/dL (NEGATIVE) 02/27/17 15:00 Urine Ketones NEGATIVE mg/dL (NEGATIVE) 02/27/17 15:00 Urine Blood LARGE (NEGATIVE) H 02/27/17 15:00 Urine Nitrate NEGATIVE (NEGATIVE) 02/27/17 15:00 Urine Bilirubin NEGATIVE (NEGATIVE) 02/27/17 15:00 Urine Urobilinogen 0.2 E.U./dL (0.2 - 1.0) 02/27/17 15:00 Ur Leukocyte Esterase LARGE (NEGATIVE) H 02/27/17 15:00 Urine RBC 10-25 /hpf (0-5) H 02/27/17 15:00 Urine WBC >100 /hpf (0-5) H 02/27/17 15:00 Ur Epithelial Cells MODERATE /lpf (FEW) 02/27/17 15:00 Urine Bacteria MODERATE /hpf (NONE SEEN) H 02/27/17 15:00 Urine Yeast MODERATE /hpf (NONE SEEN) H 02/20/17 16:15 Stool Occult Blood NEGATIVE (NEGATIVE) 03/11/17 17:25 Blood Type A POSITIVE 03/13/17 09:15 Antibody Screen NEGATIVE 03/13/17 09:15 Crossmatch See Detail 03/13/17 09:15 - Physical Exam Vitals and I&O: Vital Signs Temp 96.9 F 03/16/17 10:00 Pulse 95 03/16/17 10:00 Resp 13 03/16/17 10:00 BP 103/61 03/16/17 10:00 Pulse Ox 99 03/16/17 10:00 Intake & Output 03/15/17 03/16/17 03/16/17 18:59 06:59 18:59 Intake Total 34.384 320 Output Total 1550 1350 Balance -1515.616 -1030 Weight (lbs) 122.47 kg 120.656 kg Intake: Intake, IV Amount 34.384 Furosemide 100 mg In 28.708 Sodium Chloride 0.9% 40 ml @ 2.5 mls/hr IV TITR PATRIA Rx#:[id number] Norepinephrine 8 mg In 5.676 Sodium Chloride 0.9% 250 ml @ Per Protocol IV TITR PATRIA Rx#:[id number] Tube Feeding 220 Other 100 Output: Urine 1550 1350 Other: # Bowel Movements 1 1 Stool Characteristics Soft Liquid Brown Active Medications: Current Medications Acetaminophen (Tylenol) 650 mg PO Q4HR PRN PRN Reason: Pain (Mild) Stop: 04/20/17 12:01 Last Admin: 03/06/17 03:23 Dose: 650 mg Albuterol/Ipratropium (Duoneb Neb) 3 ml HHN Q4HRT PRN PRN Reason: Wheezing Stop: 04/27/17 19:59 Last Admin: 02/28/17 03:18 Dose: 3 ml Albuterol/Ipratropium (Duoneb Neb) 3 ml HHN [id number] [facility] Stop: 04/27/17 19:59 Last Admin: 03/16/17 08:00 Dose: 3 ml Chlorhexidine Gluconate (Peridex) 15 ml MM 0800,1999 [facility] Stop: 04/28/17 19:59 Last Admin: 03/16/17 08:37 Dose: 15 ml Diltiazem HCl (Cardizem) 5 mg IVP Q4H PRN PRN Reason: HR > 120 Stop: 04/27/17 19:59 Last Admin: 02/27/17 04:59 Dose: 5 mg Docusate Sodium (Colace) 100 mg PO BID PATRIA Stop: 04/20/17 16:59 Last Admin: 03/16/17 08:36 Dose: 100 mg Hydromorphone HCl (Dilaudid) 1 mg IVP Q4HR PRN PRN Reason: Severe Pain Stop: 05/13/17 13:01 Last Admin: 03/16/17 08:36 Dose: 1 mg Phenylephrine HCl 10 mg/ (Sodium Chloride) 250 mls @ 0 mls/hr IV TITR PATRIA; Per Protocol PRN Reason: Protocol Stop: 04/28/17 07:59 Norepinephrine Bitartrate 8 mg (/ Sodium Chloride) 258 mls @ 0 mls/hr IV TITR PATRIA; Per Protocol PRN Reason: Protocol Stop: 04/28/17 09:59 Last Titration: 03/15/17 07:26 Dose: 0 mcg/min, 0 mls/hr Furosemide 100 mg/ Sodium (Chloride) 50 mls @ 2.5 mls/hr IV TITR PATRIA Stop: 05/13/17 14:29 Last Admin: 03/15/17 17:28 Dose: 2.5 mls/hr Insulin Aspart (Novolog Insulin Sliding Scale) 0 units SUBQ Q6H PATRIA PRN Reason: Protocol Stop: 05/03/17 00:00 Last Admin: 03/16/17 06:03 Dose: Not Given Metoclopramide HCl (Reglan) 5 mg IVP Q6HR PATRIA Stop: 05/05/17 17:59 Last Admin: 03/16/17 11:38 Dose: 5 mg Metolazone (Zaroxolyn) 5 mg PO DAILY PATRIA Stop: 05/10/17 13:14 Last Admin: 03/16/17 08:36 Dose: 5 mg Mirtazapine (Remeron) 15 mg PO HS PATRIA PRN Reason: Protocol Stop: 04/26/17 20:59 Last Admin: 03/15/17 20:26 Dose: 15 mg Miscellaneous (Probiotic Screen) 1 ea MC PRN PRN PRN Reason: PROTOCOL Stop: 04/21/17 16:25 Miscellaneous (Communication Order) 1 ea MC PRN PATRIA Stop: 05/10/17 13:14 Morphine Sulfate (Morphine) 1 mg IVP Q4HR PRN PRN Reason: Severe Pain Stop: 05/04/17 14:13 Last Admin: 03/16/17 11:09 Dose: 1 mg Nitroglycerin (Nitrostat) 0.4 mg SL Q5MIN PRN PRN Reason: Chest Pain Stop: 04/20/17 12:01 Nystatin (Nystop) 100,000 units TP BID PRN PRN Reason: SKIN EXCORIATIONS Stop: 04/21/17 15:35 Last Admin: 03/08/17 06:00 Dose: 100,000 units Ondansetron HCl (Zofran) 4 mg IV Q6H PRN PRN Reason: Nausea Stop: 04/20/17 03:38 Pantoprazole Sodium (Protonix) 40 mg PO DAILY PATRIA Stop: 05/13/17 14:14 Last Admin: 03/16/17 08:37 Dose: 40 mg Potassium Chloride (Klor-Con) 20 meq PO DAILY PATRIA Stop: 05/15/17 08:59 Last Admin: 03/16/17 08:37 Dose: 20 meq General: Alert, No acute distress HEENT: Atraumatic (on ETT/VENT), EOMI Neck: Supple, JVD, +2 carotid pulse wo bruit Cardiovascular: Regular rate Lungs: Other (coarse rhonchi) Abdomen: Bowel sounds, Soft Extremities: Edema, Other ((+3) bipedal edema, decrease right UE edema) Neurological: Sensation intact Skin: no Rash Psych/Mental Status: Mood NL - Procedures Procedures: Procedures Procedure Code Date BYPASS TRACHEA TO CUTANEOUS WITH TRACH DEV, OPEN APPROACH [id number] 02/19/17 INCISION OF [place] 00853 02/19/17 INSERT EMERGENCY AIRWAY 00463 02/19/17 INSERTION OF ENDOTRACHEAL AIRWAY INTO TRACHEA, VIA OPENING [id number] 02/19/17 RESPIRATORY VENTILATION, GREATER THAN 96 CONSECUTIVE HOURS [id number] 02/19/17 VENT MGMT INPAT INIT DAY 15291 02/19/17 VENT MGMT INPAT SUBQ DAY 50079 02/19/17 Assessment/Plan - Problem List Patient Problems: All Active Problems Acute kidney failure (Acute) 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 Azotemia (Acute) R79.89 Bradycardia (Acute) R00.1 COPD (chronic obstructive pulmonary disease) (Acute) Cardiomegaly (Acute) I51.7 Chest pain (Acute) R07.9 Decubitus ulcer of buttock, 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 - Plan Plan: tracheostomy monitor vitals/diet labs f/up practice management consultant Nutritional Asmnt/Malnutr-PDOC - Dietary Evaluation Malnutrition Findings (Please click <Entered> for more info): Nutritional Asmnt/Malnutrition Start: 02/21/17 18: 20 Text: Status: Complete Freq: Document 02/21/17 18:21 ANCELMO (Rec: 02/21/17 18:32 [facility]) Nutritional Asmnt/Malnutrition Patient General Information Nutritional Screening High Risk Consult Diagnosis gastric outlet obstruction Pertinent Medical Hx/Surgical Hx HTN, OA, DM, GERD Subjective Information Pt seen sleeping at the time of visit, attempted x 2. Spoke with RN, pt consumed 50% of breakfast and only the soup of lunch today, not much appetite, no complain of N/V. Pt will be NPO from midnight for GI exam tommorrow. Current Diet Order/ Nutrition Support no added salt 4gm, CCHO, no eggs, banana and cereal in morning Pertinent Medications colace, lasix, novolog, levaquin, piperacillin Pertinent Labs 02/20 Na 137, K 4.5, Cl 104, BUN 55, Cr 1.6, Glucose 137, POC 126-199 since admit, Ca 8. 3 Nutritional Hx/Data Height 1.57 m Height (Calculated Centimeters) 157.5 Current Weight (lbs) 97.023 kg Weight (Calculated Kilograms) 97.0 Weight (Calculated Grams) 07107.4 [place] Body Weight 110 % [place] Body Weight 194 Body Mass Index (BMI) 39.1 Weight Status Obese GI Symptoms GI Symptoms None Last BM none Difficult in: None Skin Integrity/Comment: multiple maceration, abrasion to right/left medial thigh Current %PO Poor (25-49%) Estimated Nutritional Goals BEE in Kcals: Adj wt of IBW Calories/Kcals/Kg 27-32 Kcals Calculated Protein: Adj wt of IBW Protein g/k-1.2 Protein Calculated 62-74 Fluid: ml Nutritional Problem 1. Problem Problem inadequate PO intake Etiology poor appetite Signs/Symptoms: PO intake 25-50% Malnutrition Alert Protein-Calorie Malnutrition N/A Is there a minimum of two criteria No selected? Query Text:Check all the applicable criteria. A minimum of two criteria are recommended for diagnosis of either severe or non-severe malnutrition. Intervention/Recommendation Comments 1. Continue with current diet as ordered. 2. Monitor PO intake, GI symptons, wt, labs and skin integrity 3. F/U as high risk in 2-3 days, 02/23-02/24 Expected Outcomes/Goals Expected Outcomes/Goals 1. PO intake to meet at least 75% of nutritional needs. 2. Wt stability, skin to remain intact, labs to improve
--- NOTE | 2017-03-16 12:10 | General Progress Note ---
Subjective - Review of Systems Service Date: 03/16/17 Objective - Results Result Diagrams: 03/16/17 06:00 03/16/17 06:00 Recent Labs: Laboratory Last Values WBC 12.0 Th/cmm (4.8-10.8) H 03/16/17 06:00 RBC 3.55 Mil/cmm (3.80-5.20) L 03/16/17 06:00 Hgb 10.4 gm/dL (12-16) L 03/16/17 06:00 Hct 31.4 % (41.0-60) L 03/16/17 06:00 MCV 88.3 fl (81-100) 03/16/17 06:00 MCH 29.3 pg (27.0-31.0) 03/16/17 06:00 MCHC Differential 33.2 pg (28.0-36.0) 03/16/17 06:00 RDW 15.5 % (11.5-20.0) 03/16/17 06:00 Plt Count 153 Th/cmm (150-400) 03/16/17 06:00 MPV 7.5 fl 03/16/17 06:00 Neutrophils % 72.3 % (40.0-80.0) 03/16/17 06:00 Band Neutrophils % 5 % (0-10) 03/06/17 06:00 Lymphocytes % 12.0 % (20.0-50.0) L 03/16/17 06:00 Monocytes % 8.2 % (2.0-10.0) 03/16/17 06:00 Eosinophils % 6.8 % (0.0-5.0) H 03/16/17 06:00 Basophils % 0.7 % (0.0-2.0) 03/16/17 06:00 Neutrophils (Manual) 85 % (40-80) H 03/06/17 06:00 Lymphocytes 4 % (20-50) L 03/06/17 06:00 Monocytes 3 % (2-10) 03/06/17 06:00 Eosinophils 3 % (0-5) 03/06/17 06:00 Metamyelocytes 1 % (0-0) H 02/18/17 23:35 Hypochromia 1+ 02/18/17 23:35 Platelet Estimate DECREASED PLATELETS (NORMAL) 03/06/17 06:00 Platelet Morphology (NORMAL) 03/04/17 08:00 Plt Count 153 Th/cmm (150-750) 03/16/17 06:00 PT 13.7 SECONDS (9.5-11.5) H 03/16/17 06:00 INR 1.30 (0.5-1.4) 03/16/17 06:00 PTT (Actin FS) 33.4 SECONDS (26.0-38.0) 03/16/17 06:00 Fibrinogen 259.0 mg/dL (200.0-400.0) 03/16/17 06:00 D-Dimer 2380 ng/mL (100-400) H 03/16/17 06:00 Specimen Source Arterial 03/11/17 09:40 Sample Site Right Radial 03/11/17 09:40 pH 7.29 (7.35-7.45) L 03/11/17 09:40 pCO2 44.0 mmHg (35.0-45.0) 03/11/17 09:40 pO2 66.0 mmHg (80.0-100.0) L 03/11/17 09:40 HCO3 20.6 mEq/L (20.0-26.0) 03/11/17 09:40 Base Excess -5.3 mEq/L (-3.0-3.0) L 03/11/17 09:40 O2 Saturation 90.0 % (92.0-100.0) L 03/11/17 09:40 Jorje Test YES 03/11/17 09:40 Vent Rate 4 03/11/17 09:40 Inspired O2 30 03/11/17 09:40 Tidal Volume 550 03/11/17 09:40 PEEP 5 03/11/17 09:40 Pressure (ins/psv/peep) 15 03/11/17 09:40 Critical Value E.HERNANDEZ 03/11/17 09:40 Sodium 139 mEq/L (136-145) 03/16/17 06:00 Potassium 3.1 mEq/L (3.5-5.1) L 03/16/17 06:00 Chloride 109 mEq/L (98-107) H 03/16/17 06:00 Carbon Dioxide 21.9 mEq/L (21.0-31.0) 03/16/17 06:00 Anion Gap 11.2 (7.0-16.0) 03/16/17 06:00 BUN 44 mg/dL (7-25) H 03/16/17 06:00 Creatinine 1.5 mg/dL (0.6-1.2) H 03/16/17 06:00 Est GFR ( Amer) 44.3 ml/min (>90) 03/16/17 06:00 Est GFR (Non-Af Amer) 36.6 ml/min 03/16/17 06:00 BUN/Creatinine Ratio 29.3 03/16/17 06:00 Glucose 119 mg/dL (70-105) H 03/16/17 06:00 POC Glucose 137 MG/DL (70 - 105) H 03/15/17 06:04 Hemoglobin A1c % 5.8 % (4.0-6.0) 02/22/17 10:38 Whole Bld Lactic Acid 2.40 mmol/L (0.60-1.99) H* 02/27/17 15:04 Calcium 8.3 mg/dL (8.6-10.3) L 03/16/17 06:00 Phosphorus 2.5 mg/dL (2.5-5.0) 03/01/17 09:15 Magnesium 2.1 mg/dL (1.9-2.7) 03/01/17 09:15 Total Bilirubin 0.5 mg/dL (0.3-1.0) 03/11/17 08:15 Direct Bilirubin 0.09 mg/dL (0.0-0.2) 02/18/17 23:35 AST 19 U/L (13-39) 03/11/17 08:15 ALT 5 U/L (7-52) L 03/11/17 08:15 Alkaline Phosphatase 69 U/L (34-104) 03/11/17 08:15 Ammonia 38 umol/L (16-53) 03/01/17 17:28 B-Natriuretic Peptide 158.0 pg/mL (5.0-100.0) H 03/04/17 15:39 Total Protein 5.2 gm/dL (6.0-8.3) L 03/11/17 08:15 Albumin 2.9 gm/dL (3.7-5.3) L 03/11/17 08:15 Globulin 2.3 gm/dL 03/11/17 08:15 Albumin/Globulin Ratio 1.3 (1.0-1.8) 03/11/17 08:15 Amylase 36 U/L (29-103) 02/18/17 23:35 Lipase 10 U/L (11-82) L 02/18/17 23:35 Vitamin B12 860 pg/mL (232-1245) 02/26/17 04:45 Free T4 1.04 ng/dL (0.82-1.77) 02/25/17 04:50 Free T3 0.7 pg/mL (2.0-4.4) L 02/25/17 04:50 TSH 0.84 uIU/ml (0.34-5.60) 02/25/17 04:50 Total Cortisol 12.3 02/24/17 07:50 Urine Source [place] 02/27/17 15:00 Urine Color YELLOW 02/27/17 15:00 Urine Clarity CLOUDY (CLEAR) H 02/27/17 15:00 Urine pH 5.5 (4.6 - 8.0) 02/27/17 15:00 Ur Specific [place] <= 1.005 (1.005-1.030) 02/27/17 15:00 Urine Protein TRACE mg/dL (NEGATIVE) 02/27/17 15:00 Urine Glucose (UA) NEGATIVE mg/dL (NEGATIVE) 02/27/17 15:00 Urine Ketones NEGATIVE mg/dL (NEGATIVE) 02/27/17 15:00 Urine Blood LARGE (NEGATIVE) H 02/27/17 15:00 Urine Nitrate NEGATIVE (NEGATIVE) 02/27/17 15:00 Urine Bilirubin NEGATIVE (NEGATIVE) 02/27/17 15:00 Urine Urobilinogen 0.2 E.U./dL (0.2 - 1.0) 02/27/17 15:00 Ur Leukocyte Esterase LARGE (NEGATIVE) H 02/27/17 15:00 Urine RBC 10-25 /hpf (0-5) H 02/27/17 15:00 Urine WBC >100 /hpf (0-5) H 02/27/17 15:00 Ur Epithelial Cells MODERATE /lpf (FEW) 02/27/17 15:00 Urine Bacteria MODERATE /hpf (NONE SEEN) H 02/27/17 15:00 Urine Yeast MODERATE /hpf (NONE SEEN) H 02/20/17 16:15 Stool Occult Blood NEGATIVE (NEGATIVE) 03/11/17 17:25 Blood Type A POSITIVE 03/13/17 09:15 Antibody Screen NEGATIVE 03/13/17 09:15 Crossmatch See Detail 03/13/17 09:15 - Physical Exam Vitals and I&O: Vital Signs Temp 96.9 F 03/16/17 11:00 Pulse 93 03/16/17 11:00 Resp 15 03/16/17 11:00 BP 104/59 03/16/17 11:00 Pulse Ox 99 03/16/17 11:00 Intake & Output 03/15/17 03/16/17 03/16/17 18:59 06:59 18:59 Intake Total 34.384 320 Output Total 1550 1350 Balance -1515.616 -1030 Weight (lbs) 122.47 kg 120.656 kg Intake: Intake, IV Amount 34.384 Furosemide 100 mg In 28.708 Sodium Chloride 0.9% 40 ml @ 2.5 mls/hr IV TITR [facility] Rx#:[id number] Norepinephrine 8 mg In 5.676 Sodium Chloride 0.9% 250 ml @ Per Protocol IV TITR [facility] Rx#:[id number] Tube Feeding 220 Other 100 Output: Urine 1550 1350 Other: # Bowel Movements 1 1 Stool Characteristics Soft Liquid Brown Active Medications: Current Medications Acetaminophen (Tylenol) 650 mg PO Q4HR PRN PRN Reason: Pain (Mild) Stop: 04/20/17 12:01 Last Admin: 03/06/17 03:23 Dose: 650 mg Albuterol/Ipratropium (Duoneb Neb) 3 ml HHN Q4HRT PRN PRN Reason: Wheezing Stop: 04/27/17 19:59 Last Admin: 02/28/17 03:18 Dose: 3 ml Albuterol/Ipratropium (Duoneb Neb) 3 ml HHN [id number] [facility] Stop: 04/27/17 19:59 Last Admin: 03/16/17 08:00 Dose: 3 ml Chlorhexidine Gluconate (Peridex) 15 ml MM 0800,1999 [facility] Stop: 04/28/17 19:59 Last Admin: 03/16/17 08:37 Dose: 15 ml Diltiazem HCl (Cardizem) 5 mg IVP Q4H PRN PRN Reason: HR > 120 Stop: 04/27/17 19:59 Last Admin: 02/27/17 04:59 Dose: 5 mg Docusate Sodium (Colace) 100 mg PO BID [facility] Stop: 04/20/17 16:59 Last Admin: 03/16/17 08:36 Dose: 100 mg Hydromorphone HCl (Dilaudid) 1 mg IVP Q4HR PRN PRN Reason: Severe Pain Stop: 05/13/17 13:01 Last Admin: 03/16/17 08:36 Dose: 1 mg Phenylephrine HCl 10 mg/ (Sodium Chloride) 250 mls @ 0 mls/hr IV TITR [facility]; Per Protocol PRN Reason: Protocol Stop: 04/28/17 07:59 Norepinephrine Bitartrate 8 mg (/ Sodium Chloride) 258 mls @ 0 mls/hr IV TITR [facility]; Per Protocol PRN Reason: Protocol Stop: 04/28/17 09:59 Last Titration: 03/15/17 07:26 Dose: 0 mcg/min, 0 mls/hr Furosemide 100 mg/ Sodium (Chloride) 50 mls @ 2.5 mls/hr IV TITR [facility] Stop: 05/13/17 14:29 Last Admin: 03/15/17 17:28 Dose: 2.5 mls/hr Insulin Aspart (Novolog Insulin Sliding Scale) 0 units SUBQ Q6H [facility] PRN Reason: Protocol Stop: 05/03/17 00:00 Last Admin: 03/16/17 11:43 Dose: Not Given Metoclopramide HCl (Reglan) 5 mg IVP Q6HR [facility] Stop: 05/05/17 17:59 Last Admin: 03/16/17 11:38 Dose: 5 mg Metolazone (Zaroxolyn) 5 mg PO DAILY [facility] Stop: 05/10/17 13:14 Last Admin: 03/16/17 08:36 Dose: 5 mg Mirtazapine (Remeron) 15 mg PO HS [facility] PRN Reason: Protocol Stop: 04/26/17 20:59 Last Admin: 03/15/17 20:26 Dose: 15 mg Miscellaneous (Probiotic Screen) 1 ea MC PRN PRN PRN Reason: PROTOCOL Stop: 04/21/17 16:25 Miscellaneous (Communication Order) 1 ea MC PRN [facility] Stop: 03/13/18 13:14 Morphine Sulfate (Morphine) 1 mg IVP Q4HR PRN PRN Reason: Severe Pain Stop: 05/04/17 14:13 Last Admin: 03/16/17 11:09 Dose: 1 mg Nitroglycerin (Nitrostat) 0.4 mg SL Q5MIN PRN PRN Reason: Chest Pain Stop: 04/20/17 12:01 Nystatin (Nystop) 100,000 units TP BID PRN PRN Reason: SKIN EXCORIATIONS Stop: 04/21/17 15:35 Last Admin: 03/08/17 06:00 Dose: 100,000 units Ondansetron HCl (Zofran) 4 mg IV Q6H PRN PRN Reason: Nausea Stop: 04/20/17 03:38 Pantoprazole Sodium (Protonix) 40 mg PO DAILY [facility] Stop: 05/13/17 14:14 Last Admin: 03/16/17 08:37 Dose: 40 mg Potassium Chloride (Klor-Con) 20 meq PO DAILY [facility] Stop: 05/15/17 08:59 Last Admin: 03/16/17 08:37 Dose: 20 meq General: Alert, No acute distress HEENT: Atraumatic (on trach/VENT), EOMI Neck: Supple, JVD, +2 carotid pulse wo bruit Cardiovascular: Regular rate Lungs: Other (coarse rhonchi) Abdomen: Bowel sounds, Soft Extremities: Edema, Other ((+3) bipedal edema, decrease right UE edema) Neurological: Sensation intact Skin: no Rash Psych/Mental Status: Mood NL - Procedures Procedures: Procedures Procedure Code Date BYPASS TRACHEA TO CUTANEOUS WITH TRACH DEV, OPEN APPROACH [id number] 02/19/17 INCISION OF WINDPIPE 00375 02/19/17 INSERT EMERGENCY AIRWAY 87842 02/19/17 INSERTION OF ENDOTRACHEAL AIRWAY INTO TRACHEA, VIA OPENING [id number] 02/19/17 RESPIRATORY VENTILATION, GREATER THAN 96 CONSECUTIVE HOURS [id number] 02/19/17 VENT MGMT INPAT INIT DAY 06584 02/19/17 VENT MGMT INPAT SUBQ DAY 33152 02/19/17 Assessment/Plan - Problem List Patient Problems: All Active Problems Acute kidney failure (Acute) 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 Azotemia (Acute) R79.89 Bradycardia (Acute) R00.1 COPD (chronic obstructive pulmonary disease) (Acute) Cardiomegaly (Acute) I51.7 Chest pain (Acute) R07.9 Decubitus ulcer of buttock, 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 - Assessment Assessment: * SEPTIC SHOCK * DIC improving * RESPIRATORY FAILURE * RENAL FAILURE no need for transfusion FOLLOW DIC PARAMETERS Nutritional Asmnt/Malnutr-PDOC - Dietary Evaluation Malnutrition Findings (Please click <Entered> for more info): Nutritional Asmnt/Malnutrition Start: 02/21/17 18: 20 Text: Status: Complete Freq: Document 02/21/17 18:21 LCHENG (Rec: 02/21/17 18:32 LCHENG [id number]) Nutritional Asmnt/Malnutrition Patient General Information Nutritional Screening High Risk Consult Diagnosis gastric outlet obstruction Pertinent Medical Hx/Surgical Hx HTN, OA, DM, GERD Subjective Information Pt seen sleeping at the time of visit, attempted x 2. Spoke with RN, pt consumed 50% of breakfast and only the soup of lunch today, not much appetite, no complain of N/V. Pt will be NPO from midnight for GI exam tommorrow. Current Diet Order/ Nutrition Support no added salt 4gm, CCHO, no eggs, banana and cereal in morning Pertinent Medications colace, lasix, novolog, levaquin, piperacillin Pertinent Labs 02/20 Na 137, K 4.5, Cl 104, BUN 55, Cr 1.6, Glucose 137, POC 126-199 since admit, Ca 8. 3 Nutritional Hx/Data Height 1.57 m Height (Calculated Centimeters) 157.5 Current Weight (lbs) 97.023 kg Weight (Calculated Kilograms) 97.0 Weight (Calculated Grams) 76339.4 [place] Body Weight 110 % [place] Body Weight 194 Body Mass Index (BMI) 39.1 Weight Status Obese GI Symptoms GI Symptoms None Last BM none Difficult in: None Skin Integrity/Comment: multiple maceration, abrasion to right/left medial thigh Current %PO Poor (25-49%) Estimated Nutritional Goals BEE in Kcals: Adj wt of IBW Calories/Kcals/Kg 27-32 Kcals Calculated Protein: Adj wt of IBW Protein g/k-1.2 Protein Calculated 62-74 Fluid: ml Nutritional Problem 1. Problem Problem inadequate PO intake Etiology poor appetite Signs/Symptoms: PO intake 25-50% Malnutrition Alert Protein-Calorie Malnutrition N/A Is there a minimum of two criteria No selected? Query Text:Check all the applicable criteria. A minimum of two criteria are recommended for diagnosis of either severe or non-severe malnutrition. Intervention/Recommendation Comments 1. Continue with current diet as ordered. 2. Monitor PO intake, GI symptons, wt, labs and skin integrity 3. F/U as high risk in 2-3 days, 02/23-02/24 Expected Outcomes/Goals Expected Outcomes/Goals 1. PO intake to meet at least 75% of nutritional needs. 2. Wt stability, skin to remain intact, labs to improve
--- NOTE | 2017-03-16 14:05 | General Progress Note ---
Subjective - Review of Systems Service Date: 03/16/17 Subjective: very awake, on vent Objective - Results Result Diagrams: 03/16/17 06:00 03/16/17 06:00 Recent Labs: Laboratory Last Values WBC 12.0 Th/cmm (4.8-10.8) H 03/16/17 06:00 RBC 3.55 Mil/cmm (3.80-5.20) L 03/16/17 06:00 Hgb 10.4 gm/dL (12-16) L 03/16/17 06:00 Hct 31.4 % (41.0-60) L 03/16/17 06:00 MCV 88.3 fl (81-100) 03/16/17 06:00 MCH 29.3 pg (27.0-31.0) 03/16/17 06:00 MCHC Differential 33.2 pg (28.0-36.0) 03/16/17 06:00 RDW 15.5 % (11.5-20.0) 03/16/17 06:00 Plt Count 153 Th/cmm (150-400) 03/16/17 06:00 MPV 7.5 fl 03/16/17 06:00 Neutrophils % 72.3 % (40.0-80.0) 03/16/17 06:00 Band Neutrophils % 5 % (0-10) 03/06/17 06:00 Lymphocytes % 12.0 % (20.0-50.0) L 03/16/17 06:00 Monocytes % 8.2 % (2.0-10.0) 03/16/17 06:00 Eosinophils % 6.8 % (0.0-5.0) H 03/16/17 06:00 Basophils % 0.7 % (0.0-2.0) 03/16/17 06:00 Neutrophils (Manual) 85 % (40-80) H 03/06/17 06:00 Lymphocytes 4 % (20-50) L 03/06/17 06:00 Monocytes 3 % (2-10) 03/06/17 06:00 Eosinophils 3 % (0-5) 03/06/17 06:00 Metamyelocytes 1 % (0-0) H 02/18/17 23:35 Hypochromia 1+ 02/18/17 23:35 Platelet Estimate DECREASED PLATELETS (NORMAL) 03/06/17 06:00 Platelet Morphology (NORMAL) 03/04/17 08:00 Plt Count 153 Th/cmm (150-750) 03/16/17 06:00 PT 13.7 SECONDS (9.5-11.5) H 03/16/17 06:00 INR 1.30 (0.5-1.4) 03/16/17 06:00 PTT (Actin FS) 33.4 SECONDS (26.0-38.0) 03/16/17 06:00 Fibrinogen 259.0 mg/dL (200.0-400.0) 03/16/17 06:00 D-Dimer 2380 ng/mL (100-400) H 03/16/17 06:00 Specimen Source Arterial 03/11/17 09:40 Sample Site Right Radial 03/11/17 09:40 pH 7.29 (7.35-7.45) L 03/11/17 09:40 pCO2 44.0 mmHg (35.0-45.0) 03/11/17 09:40 pO2 66.0 mmHg (80.0-100.0) L 03/11/17 09:40 HCO3 20.6 mEq/L (20.0-26.0) 03/11/17 09:40 Base Excess -5.3 mEq/L (-3.0-3.0) L 03/11/17 09:40 O2 Saturation 90.0 % (92.0-100.0) L 03/11/17 09:40 Jorje Test YES 03/11/17 09:40 Vent Rate 4 03/11/17 09:40 Inspired O2 30 03/11/17 09:40 Tidal Volume 550 03/11/17 09:40 PEEP 5 03/11/17 09:40 Pressure (ins/psv/peep) 15 03/11/17 09:40 Critical Value E.HERNANDEZ 03/11/17 09:40 Sodium 139 mEq/L (136-145) 03/16/17 06:00 Potassium 3.1 mEq/L (3.5-5.1) L 03/16/17 06:00 Chloride 109 mEq/L (98-107) H 03/16/17 06:00 Carbon Dioxide 21.9 mEq/L (21.0-31.0) 03/16/17 06:00 Anion Gap 11.2 (7.0-16.0) 03/16/17 06:00 BUN 44 mg/dL (7-25) H 03/16/17 06:00 Creatinine 1.5 mg/dL (0.6-1.2) H 03/16/17 06:00 Est GFR ( Amer) 44.3 ml/min (>90) 03/16/17 06:00 Est GFR (Non-Af Amer) 36.6 ml/min 03/16/17 06:00 BUN/Creatinine Ratio 29.3 03/16/17 06:00 Glucose 119 mg/dL (70-105) H 03/16/17 06:00 POC Glucose 137 MG/DL (70 - 105) H 03/15/17 06:04 Hemoglobin A1c % 5.8 % (4.0-6.0) 02/22/17 10:38 Whole Bld Lactic Acid 2.40 mmol/L (0.60-1.99) H* 02/27/17 15:04 Calcium 8.3 mg/dL (8.6-10.3) L 03/16/17 06:00 Phosphorus 2.5 mg/dL (2.5-5.0) 03/01/17 09:15 Magnesium 2.1 mg/dL (1.9-2.7) 03/01/17 09:15 Total Bilirubin 0.5 mg/dL (0.3-1.0) 03/11/17 08:15 Direct Bilirubin 0.09 mg/dL (0.0-0.2) 02/18/17 23:35 AST 19 U/L (13-39) 03/11/17 08:15 ALT 5 U/L (7-52) L 03/11/17 08:15 Alkaline Phosphatase 69 U/L (34-104) 03/11/17 08:15 Ammonia 38 umol/L (16-53) 03/01/17 17:28 B-Natriuretic Peptide 158.0 pg/mL (5.0-100.0) H 03/04/17 15:39 Total Protein 5.2 gm/dL (6.0-8.3) L 03/11/17 08:15 Albumin 2.9 gm/dL (3.7-5.3) L 03/11/17 08:15 Globulin 2.3 gm/dL 03/11/17 08:15 Albumin/Globulin Ratio 1.3 (1.0-1.8) 03/11/17 08:15 Amylase 36 U/L (29-103) 02/18/17 23:35 Lipase 10 U/L (11-82) L 02/18/17 23:35 Vitamin B12 860 pg/mL (232-1245) 02/26/17 04:45 Free T4 1.04 ng/dL (0.82-1.77) 02/25/17 04:50 Free T3 0.7 pg/mL (2.0-4.4) L 02/25/17 04:50 TSH 0.84 uIU/ml (0.34-5.60) 02/25/17 04:50 Total Cortisol 12.3 02/24/17 07:50 Urine Source [place] 02/27/17 15:00 Urine Color YELLOW 02/27/17 15:00 Urine Clarity CLOUDY (CLEAR) H 02/27/17 15:00 Urine pH 5.5 (4.6 - 8.0) 02/27/17 15:00 Ur Specific [place] <= 1.005 (1.005-1.030) 02/27/17 15:00 Urine Protein TRACE mg/dL (NEGATIVE) 02/27/17 15:00 Urine Glucose (UA) NEGATIVE mg/dL (NEGATIVE) 02/27/17 15:00 Urine Ketones NEGATIVE mg/dL (NEGATIVE) 02/27/17 15:00 Urine Blood LARGE (NEGATIVE) H 02/27/17 15:00 Urine Nitrate NEGATIVE (NEGATIVE) 02/27/17 15:00 Urine Bilirubin NEGATIVE (NEGATIVE) 02/27/17 15:00 Urine Urobilinogen 0.2 E.U./dL (0.2 - 1.0) 02/27/17 15:00 Ur Leukocyte Esterase LARGE (NEGATIVE) H 02/27/17 15:00 Urine RBC 10-25 /hpf (0-5) H 02/27/17 15:00 Urine WBC >100 /hpf (0-5) H 02/27/17 15:00 Ur Epithelial Cells MODERATE /lpf (FEW) 02/27/17 15:00 Urine Bacteria MODERATE /hpf (NONE SEEN) H 02/27/17 15:00 Urine Yeast MODERATE /hpf (NONE SEEN) H 02/20/17 16:15 Stool Occult Blood NEGATIVE (NEGATIVE) 03/11/17 17:25 Blood Type A POSITIVE 03/13/17 09:15 Antibody Screen NEGATIVE 03/13/17 09:15 Crossmatch See Detail 03/13/17 09:15 - Physical Exam Vitals and I&O: Vital Signs Temp 97.1 F 03/16/17 13:00 Pulse 99 03/16/17 13:21 Resp 13 03/16/17 13:00 BP 123/67 03/16/17 13:00 Pulse Ox 100 03/16/17 13:21 Intake & Output 03/15/17 03/16/17 03/16/17 18:59 06:59 18:59 Intake Total 34.384 320 Output Total 1550 1350 Balance -1515.616 -1030 Weight (lbs) 122.47 kg 120.656 kg Intake: Intake, IV Amount 34.384 Furosemide 100 mg In 28.708 Sodium Chloride 0.9% 40 ml @ 2.5 mls/hr IV TITR PATRIA Rx#:[id number] Norepinephrine 8 mg In 5.676 Sodium Chloride 0.9% 250 ml @ Per Protocol IV TITR PATRIA Rx#:[id number] Tube Feeding 220 Other 100 Output: Urine 1550 1350 Other: # Bowel Movements 1 1 Stool Characteristics Soft Liquid Brown Active Medications: Current Medications Acetaminophen (Tylenol) 650 mg PO Q4HR PRN PRN Reason: Pain (Mild) Stop: 04/20/17 12:01 Last Admin: 03/06/17 03:23 Dose: 650 mg Albuterol/Ipratropium (Duoneb Neb) 3 ml HHN Q4HRT PRN PRN Reason: Wheezing Stop: 04/27/17 19:59 Last Admin: 02/28/17 03:18 Dose: 3 ml Albuterol/Ipratropium (Duoneb Neb) 3 ml HHN [id number] [facility] Stop: 04/27/17 19:59 Last Admin: 03/16/17 13:20 Dose: 3 ml Chlorhexidine Gluconate (Peridex) 15 ml MM 0800,2000 [facility] Stop: 04/28/17 19:59 Last Admin: 03/16/17 08:37 Dose: 15 ml Diltiazem HCl (Cardizem) 5 mg IVP Q4H PRN PRN Reason: HR > 120 Stop: 04/27/17 19:59 Last Admin: 02/27/17 04:59 Dose: 5 mg Docusate Sodium (Colace) 100 mg PO BID PATRIA Stop: 04/20/17 16:59 Last Admin: 03/16/17 08:36 Dose: 100 mg Hydromorphone HCl (Dilaudid) 1 mg IVP Q4HR PRN PRN Reason: Severe Pain Stop: 05/13/17 13:01 Last Admin: 03/16/17 08:36 Dose: 1 mg Phenylephrine HCl 10 mg/ (Sodium Chloride) 250 mls @ 0 mls/hr IV TITR PATRIA; Per Protocol PRN Reason: Protocol Stop: 04/28/17 07:59 Norepinephrine Bitartrate 8 mg (/ Sodium Chloride) 258 mls @ 0 mls/hr IV TITR PATRIA; Per Protocol PRN Reason: Protocol Stop: 04/28/17 09:59 Last Titration: 03/15/17 07:26 Dose: 0 mcg/min, 0 mls/hr Furosemide 100 mg/ Sodium (Chloride) 50 mls @ 2.5 mls/hr IV TITR PATRIA Stop: 05/13/17 14:29 Last Admin: 03/15/17 17:28 Dose: 2.5 mls/hr Insulin Aspart (Novolog Insulin Sliding Scale) 0 units SUBQ Q6H [facility]RIA PRN Reason: Protocol Stop: 05/03/17 00:00 Last Admin: 03/16/17 11:43 Dose: Not Given Metoclopramide HCl (Reglan) 5 mg IVP Q6HR [facility]RIA Stop: 05/05/17 17:59 Last Admin: 03/16/17 11:38 Dose: 5 mg Metolazone (Zaroxolyn) 5 mg PO DAILY PATRIA Stop: 05/10/17 13:14 Last Admin: 03/16/17 08:36 Dose: 5 mg Mirtazapine (Remeron) 15 mg PO HS PATRIA PRN Reason: Protocol Stop: 04/26/17 20:59 Last Admin: 03/15/17 20:26 Dose: 15 mg Miscellaneous (Probiotic Screen) 1 ea PRN PRN PRN Reason: PROTOCOL Stop: 04/21/17 16:25 Miscellaneous (Communication Order) 1 ea MC PRN PATRIA Stop: 05/10/17 13:14 Morphine Sulfate (Morphine) 1 mg IVP Q4HR PRN PRN Reason: Severe Pain Stop: 05/04/17 14:13 Last Admin: 03/16/17 11:09 Dose: 1 mg Nitroglycerin (Nitrostat) 0.4 mg SL Q5MIN PRN PRN Reason: Chest Pain Stop: 04/20/17 12:01 Nystatin (Nystop) 100,000 units TP BID PRN PRN Reason: SKIN EXCORIATIONS Stop: 04/21/17 15:35 Last Admin: 03/08/17 06:00 Dose: 100,000 units Ondansetron HCl (Zofran) 4 mg IV Q6H PRN PRN Reason: Nausea Stop: 04/20/17 03:38 Pantoprazole Sodium (Protonix) 40 mg PO DAILY PATRIA Stop: 05/13/17 14:14 Last Admin: 03/16/17 08:37 Dose: 40 mg Potassium Chloride (Klor-Con) 20 meq PO BID PATRIA Stop: 05/15/17 16:59 General: Alert, No acute distress HEENT: Atraumatic (on trach/VENT), EOMI Neck: Supple, JVD, +2 carotid pulse wo bruit Cardiovascular: Regular rate Lungs: Other (coarse rhonchi) Abdomen: Bowel sounds, Soft Extremities: Edema, Other ((+3) bipedal edema, decrease right UE edema) Neurological: Sensation intact Skin: no Rash Psych/Mental Status: Mood NL - Procedures Procedures: Procedures Procedure Code Date BYPASS TRACHEA TO CUTANEOUS WITH TRACH DEV, OPEN APPROACH [id number] 02/19/17 INCISION OF WINDPIPE 97510 02/19/17 INSERT EMERGENCY AIRWAY 55348 02/19/17 INSERTION OF ENDOTRACHEAL AIRWAY INTO TRACHEA, VIA OPENING [id number] 02/19/17 RESPIRATORY VENTILATION, GREATER THAN 96 CONSECUTIVE HOURS [id number] 02/19/17 VENT MGMT INPAT INIT DAY 20704 02/19/17 VENT MGMT INPAT SUBQ DAY 72228 02/19/17 Assessment/Plan - Problem List Patient Problems: All Active Problems Acute kidney failure (Acute) 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 Azotemia (Acute) R79.89 Bradycardia (Acute) R00.1 COPD (chronic obstructive pulmonary disease) (Acute) Cardiomegaly (Acute) I51.7 Chest pain (Acute) R07.9 Decubitus ulcer of buttock, 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 - Assessment Assessment: SOHAIL on CKD Acute resp failure on vent 2nd CHF, HAP, possible SOFIE, Exacerbation COPD Shock Sepsis DJD Type 2 DM GERD SOFIE Hyponatremia S/p [place], Appe anasarca Thrombocytopenia Anemia of CD - Plan Plan: Lab - Result Diagrams 03/01/17 09:15 03/01/17 09:15 Current Medications Acetaminophen (Tylenol) 650 mg PO Q4HR PRN PRN Reason: Pain (Mild) Stop: 04/20/17 12:01 Last Admin: 02/21/17 09:54 Dose: 650 mg Acetaminophen/Hydrocodone Bitart ([place] 5mg/325mg) 1 tab PO Q6H PRN PRN Reason: PAIN Stop: 04/20/17 13:24 Albuterol/Ipratropium (Duoneb Neb) 3 ml HHN Q4HRT PRN PRN Reason: Wheezing Stop: 04/27/17 19:59 Last Admin: 02/28/17 03:18 Dose: 3 ml Albuterol/Ipratropium (Duoneb Neb) 3 ml HHN [id number] [facility] Stop: 04/27/17 19:59 Last Admin: 03/01/17 13:49 Dose: 3 ml Aspirin (Ecotrin) 81 mg PO DAILY [facility] Stop: 04/21/17 08:59 Last Admin: 03/01/17 09:30 Dose: Not Given Chlorhexidine Gluconate (Peridex) 15 ml MM 0800,2000 [facility] Stop: 04/28/17 19:59 Last Admin: 03/01/17 08:30 Dose: 15 ml Diltiazem HCl (Cardizem) 5 mg IVP Q4H PRN PRN Reason: HR > 120 Stop: 04/27/17 19:59 Last Admin: 02/27/17 04:59 Dose: 5 mg Docusate Sodium (Colace) 100 mg PO BID [facility] Stop: 04/20/17 16:59 Last Admin: 03/01/17 09:31 Dose: Not Given Fluconazole (Diflucan) 100 mg PO DAILY PATRIA Stop: 03/08/17 08:59 Last Admin: 03/01/17 09:31 Dose: Not Given Furosemide (Lasix) 40 mg PO DAILY PATRIA Stop: 04/21/17 08:59 Last Admin: 03/01/17 09:31 Dose: Not Given Pantoprazole Sodium 80 mg/ (Sodium Chloride) 100 mls @ 10 mls/hr IV Q10H [facility] Stop: 04/20/17 08:59 Last Admin: 03/01/17 09:31 Dose: 10 mls/hr Linezolid (Zyvox) 600 mg in 300 mls @ 300 mls/hr IV Q12HR [facility] Stop: 04/22/17 20:59 Last Infusion: 03/01/17 10:00 Dose: Infused Levofloxacin (Levaquin Pb) 250 mg in 50 mls @ 50 mls/hr IV Q24HR [facility]RIA Stop: 04/23/17 20:59 Last Infusion: 02/28/17 21:17 Dose: Infused Phenylephrine HCl 10 mg/ (Sodium Chloride) 250 mls @ 0 mls/hr IV TITR PATRIA; Per Protocol PRN Reason: Protocol Stop: 04/28/17 07:59 Norepinephrine Bitartrate 8 mg (/ Sodium Chloride) 258 mls @ 0 mls/hr IV TITR PATRIA; Per Protocol PRN Reason: Protocol Stop: 04/28/17 09:59 Last Titration: 03/01/17 06:31 Dose: 6 mcg/min, 11.61 mls/hr Meropenem 1 gm/ Dextrose 100 mls @ 100 mls/hr IV Q12H [facility] Stop: 04/28/17 12:29 Last Infusion: 03/01/17 13:00 Dose: Infused Potassium Chloride/Dextrose/Sod Cl (D5-0.9ns W/Kcl 20meq) 1,000 mls @ 75 mls/ hr IV .[id number] [facility] Stop: 04/30/17 14:41 Insulin Aspart (Novolog Insulin Sliding Scale) 0 units SUBQ ACHS PATRIA PRN Reason: Protocol Stop: 04/20/17 16:29 Last Admin: 03/01/17 12:01 Dose: 4 units Mirtazapine (Remeron) 15 mg PO HS [facility] PRN Reason: Protocol Stop: 04/26/17 20:59 Last Admin: 02/28/17 21:23 Dose: 15 mg Miscellaneous (Probiotic Screen) 1 ea MC PRN PRN PRN Reason: PROTOCOL Stop: 04/21/17 16:25 Morphine Sulfate (Morphine) 1 mg IVP Q3H PRN PRN Reason: Pain (Moderate) Stop: 04/20/17 01:59 Last Admin: 03/01/17 09:28 Dose: 1 mg Nitroglycerin (Nitrostat) 0.4 mg SL Q5MIN PRN PRN Reason: Chest Pain Stop: 04/20/17 12:01 Nystatin (Nystop) 100,000 units TP BID PRN PRN Reason: SKIN EXCORIATIONS Stop: 04/21/17 15:35 Last Admin: 02/21/17 11:46 Dose: 100,000 units Ondansetron HCl (Zofran) 4 mg IV Q6H PRN PRN Reason: Nausea Stop: 04/20/17 03:38 Spironolactone (Aldactone) 50 mg PO BID PATRIA Stop: 04/27/17 08:59 Last Admin: 03/01/17 09:29 Dose: Not Given Na up to 139 kidney fnc remain stable w/ BUN/Cr of 44/1.5 UOP improved to nam 2L CXR still w/ CHF, B/L effusions; continue Lasix drip, add metolazone DC spironolactone f/u electorlytes, cbc, CXR DC ivf due to worsening anasarca, chf add albumin initiate [id number] Plts up to 153 Peptamen @ 20 ml/hr Lab - Result Diagrams 03/16/17 06:00 03/16/17 06:00 Nutritional Asmnt/Malnutr-PDOC - Dietary Evaluation Malnutrition Findings (Please click <Entered> for more info): Nutritional Asmnt/Malnutrition Start: 02/21/17 18: 20 Text: Status: Complete Freq: Document 02/21/17 18:21 OSKAR (Rec: 02/21/17 18:32 LCHENG [id number]) Nutritional Asmnt/Malnutrition Patient General Information Nutritional Screening High Risk Consult Diagnosis gastric outlet obstruction Pertinent Medical Hx/Surgical Hx HTN, OA, DM, GERD Subjective Information Pt seen sleeping at the time of visit, attempted x 2. Spoke with RN, pt consumed 50% of breakfast and only the soup of lunch today, not much appetite, no complain of N/V. Pt will be NPO from midnight for GI exam tommorrow. Current Diet Order/ Nutrition Support no added salt 4gm, CCHO, no eggs, banana and cereal in morning Pertinent Medications colace, lasix, novolog, levaquin, piperacillin Pertinent Labs 02/20 Na 137, K 4.5, Cl 104, BUN 55, Cr 1.6, Glucose 137, POC 126-199 since admit, Ca 8. 3 Nutritional Hx/Data Height 1.57 m Height (Calculated Centimeters) 157.5 Current Weight (lbs) 97.023 kg Weight (Calculated Kilograms) 97.0 Weight (Calculated Grams) 69433.4 [place] Body Weight 110 % [place] Body Weight 194 Body Mass Index (BMI) 39.1 Weight Status Obese GI Symptoms GI Symptoms None Last BM none Difficult in: None Skin Integrity/Comment: multiple maceration, abrasion to right/left medial thigh Current %PO Poor (25-49%) Estimated Nutritional Goals BEE in Kcals: Adj wt of IBW Calories/Kcals/Kg 27-32 Kcals Calculated Protein: Adj wt of IBW Protein g/k-1.2 Protein Calculated 62-74 Fluid: ml Nutritional Problem 1. Problem Problem inadequate PO intake Etiology poor appetite Signs/Symptoms: PO intake 25-50% Malnutrition Alert Protein-Calorie Malnutrition N/A Is there a minimum of two criteria No selected? Query Text:Check all the applicable criteria. A minimum of two criteria are recommended for diagnosis of either severe or non-severe malnutrition. Intervention/Recommendation Comments 1. Continue with current diet as ordered. 2. Monitor PO intake, GI symptons, wt, labs and skin integrity 3. F/U as high risk in 2-3 days, 02/23-02/24 Expected Outcomes/Goals Expected Outcomes/Goals 1. PO intake to meet at least 75% of nutritional needs. 2. Wt stability, skin to remain intact, labs to improve
[2017-03-16] MEDS: Potassium Chloride 20 mEq ER Tab PO SCH (16:53)
[2017-03-16] MEDS ORDERED: Dextrose 5% 1,000 ML IV SCH (17:30)
[2017-03-17] MEDS: INSULIN ASPART SLIDING SCALE 100 UNITS/ML UNIT SUBQ SCH ×5 (00:30→23:51)
[2017-03-17] MEDS: Metoclopramide 5 mg/mL 2mL Vial IVP SCH ×4 (05:57→23:49)
[2017-03-17] MEDS: Morphine Sulfate 2 mg/mL 1mL Syr IVP PRN (05:59)
[2017-03-17 07:24] LABS: HEMATOCRIT 28.9 % (41.0-60); HEMOGLOBIN 9.6 gm/dL (12-16); MEAN CELL VOLUME 87.5 fl (81-100); MEAN CORPUSCULAR HEMOGLOBIN 29.1 pg (27.0-31.0); MEAN CORPUSCULAR HGB CONC 33.3 pg (28.0-36.0); PLATELET COUNT 140 Th/cmm (150-400); RED BLOOD COUNT 3.31 Mil/cmm (3.80-5.20); RED CELL DISTRIBUTION WIDTH 16.5 % (11.5-20.0)
[2017-03-17 07:30] LABS: WHITE BLOOD COUNT 14.1 Th/cmm (4.8-10.8)
[2017-03-17 07:39] LABS: ANION GAP 13.2 (7.0-16.0); CALCIUM SERUM 8.2 mg/dL (8.6-10.3); CREATININE - SERUM 1.6 mg/dL (0.6-1.2); GFR AFRICAN-AMERICAN 41.1 ml/min (>90); POTASSIUM SERUM 3.2 mEq/L (3.5-5.1)
[2017-03-17] MEDS: Albuterol/Ipratropium Neb 3 ML AERS HHN SCH ×3 (07:56→19:11)
[2017-03-17 07:59] LABS: INR 1.28 (0.5-1.4); PROTHROMBIN TIME (TEST) 13.5 SECONDS (9.5-11.5)
[2017-03-17 08:13] LABS: BAND NEUTROPHILE 9 % (0-10); EOSINOPHIL 3 % (0-5); LYMPHOCYTE 5 % (20-50); MONOCYTE 2 % (2-10); NEUTROPHILS 81 % (40-80); PLATELET ESTIMATE SLIGHT DECREASED (NORMAL); TOTAL CELLS COUNTED 100
[2017-03-17] MEDS: Chlorhexidine Gluconate 0.12% 15mL Mouthwash MM SCH ×2 (08:43→20:38)
[2017-03-17] MEDS: Metolazone 5 MG TAB PO SCH (08:44)
[2017-03-17] MEDS: Multivitamin w/ Minerals Tab PO SCH ×2 (08:45→09:39)
[2017-03-17] MEDS: Pantoprazole 40 mg/Packet PO SCH ×2 (08:45→09:42)
[2017-03-17] MEDS: Potassium Chloride 20 mEq ER Tab PO SCH ×3 (08:45→16:50)
[2017-03-17] MEDS ORDERED: ceFAZolin 1 GM in Sodium Chloride 0.9% 50 ML IV ONE (09:00)
[2017-03-17] MEDS ORDERED: Lidocaine 2% Gel 5 mL TP ONE (09:10)
[2017-03-17] MEDS ORDERED: Propofol 10 mg/mL 20mL Vial **SURGERY USE ONLY IV ONE (09:10)
--- NOTE | 2017-03-17 09:53 | General Progress Note ---
Subjective - Review of Systems Events since last encounter: patient awake on vent no distress Objective - Results Result Diagrams: 03/17/17 06:35 03/17/17 06:35 Recent Labs: Laboratory Last Values WBC 14.1 Th/cmm (4.8-10.8) H 03/17/17 06:35 RBC 3.31 Mil/cmm (3.80-5.20) L 03/17/17 06:35 Hgb 9.6 gm/dL (12-16) L 03/17/17 06:35 Hct 28.9 % (41.0-60) L 03/17/17 06:35 MCV 87.5 fl (81-100) 03/17/17 06:35 MCH 29.1 pg (27.0-31.0) 03/17/17 06:35 MCHC Differential 33.3 pg (28.0-36.0) 03/17/17 06:35 RDW 16.5 % (11.5-20.0) 03/17/17 06:35 Plt Count 140 Th/cmm (150-400) L 03/17/17 06:35 MPV 8.0 fl 03/17/17 06:35 Neutrophils % [employer] 03/17/17 06:35 Band Neutrophils % 9 % (0-10) 03/17/17 06:35 Lymphocytes % [employer] 03/17/17 06:35 Monocytes % [employer] 03/17/17 06:35 Eosinophils % [employer] 03/17/17 06:35 Basophils % [employer] 03/17/17 06:35 Neutrophils (Manual) 81 % (40-80) H 03/17/17 06:35 Lymphocytes 5 % (20-50) L 03/17/17 06:35 Monocytes 2 % (2-10) 03/17/17 06:35 Eosinophils 3 % (0-5) 03/17/17 06:35 Metamyelocytes 1 % (0-0) H 02/18/17 23:35 Hypochromia 1+ 02/18/17 23:35 Platelet Estimate SLIGHT DECREASED (NORMAL) 03/17/17 06:35 Platelet Morphology (NORMAL) 03/04/17 08:00 Plt Count 140 Th/cmm (150-750) L 03/17/17 06:35 PT 13.5 SECONDS (9.5-11.5) H 03/17/17 06:35 INR 1.28 (0.5-1.4) 03/17/17 06:35 PTT (Actin FS) 35.0 SECONDS (26.0-38.0) 03/17/17 06:35 Fibrinogen 367.0 mg/dL (200.0-400.0) 03/17/17 06:35 D-Dimer 3520 ng/mL (100-400) H 03/17/17 06:35 Specimen Source Arterial 03/11/17 09:40 Sample Site Right Radial 03/11/17 09:40 pH 7.29 (7.35-7.45) L 03/11/17 09:40 pCO2 44.0 mmHg (35.0-45.0) 03/11/17 09:40 pO2 66.0 mmHg (80.0-100.0) L 03/11/17 09:40 HCO3 20.6 mEq/L (20.0-26.0) 03/11/17 09:40 Base Excess -5.3 mEq/L (-3.0-3.0) L 03/11/17 09:40 O2 Saturation 90.0 % (92.0-100.0) L 03/11/17 09:40 Jorje Test YES 03/11/17 09:40 Vent Rate 4 03/11/17 09:40 Inspired O2 30 03/11/17 09:40 Tidal Volume 550 03/11/17 09:40 PEEP 5 03/11/17 09:40 Pressure (ins/psv/peep) 15 03/11/17 09:40 Critical Value E.HERNANDEZ 03/11/17 09:40 Sodium 139 mEq/L (136-145) 03/17/17 06:35 Potassium 3.2 mEq/L (3.5-5.1) L 03/17/17 06:35 Chloride 108 mEq/L (98-107) H 03/17/17 06:35 Carbon Dioxide 21.0 mEq/L (21.0-31.0) 03/17/17 06:35 Anion Gap 13.2 (7.0-16.0) 03/17/17 06:35 BUN 45 mg/dL (7-25) H 03/17/17 06:35 Creatinine 1.6 mg/dL (0.6-1.2) H 03/17/17 06:35 Est GFR ( Amer) 41.1 ml/min (>90) 03/17/17 06:35 Est GFR (Non-Af Amer) 34.0 ml/min 03/17/17 06:35 BUN/Creatinine Ratio 28.1 03/17/17 06:35 Glucose 174 mg/dL (70-105) H 03/17/17 06:35 POC Glucose 177 MG/DL (70 - 105) H 03/17/17 06:57 Hemoglobin A1c % 5.8 % (4.0-6.0) 02/22/17 10:38 Whole Bld Lactic Acid 2.40 mmol/L (0.60-1.99) H* 02/27/17 15:04 Calcium 8.2 mg/dL (8.6-10.3) L 03/17/17 06:35 Phosphorus 2.5 mg/dL (2.5-5.0) 03/01/17 09:15 Magnesium 2.1 mg/dL (1.9-2.7) 03/01/17 09:15 Total Bilirubin 0.5 mg/dL (0.3-1.0) 03/11/17 08:15 Direct Bilirubin 0.09 mg/dL (0.0-0.2) 02/18/17 23:35 AST 19 U/L (13-39) 03/11/17 08:15 ALT 5 U/L (7-52) L 03/11/17 08:15 Alkaline Phosphatase 69 U/L (34-104) 03/11/17 08:15 Ammonia 38 umol/L (16-53) 03/01/17 17:28 B-Natriuretic Peptide 158.0 pg/mL (5.0-100.0) H 03/04/17 15:39 Total Protein 5.2 gm/dL (6.0-8.3) L 03/11/17 08:15 Albumin 2.9 gm/dL (3.7-5.3) L 03/11/17 08:15 Globulin 2.3 gm/dL 03/11/17 08:15 Albumin/Globulin Ratio 1.3 (1.0-1.8) 03/11/17 08:15 Amylase 36 U/L (29-103) 02/18/17 23:35 Lipase 10 U/L (11-82) L 02/18/17 23:35 Vitamin B12 860 pg/mL (232-1245) 02/26/17 04:45 Free T4 1.04 ng/dL (0.82-1.77) 02/25/17 04:50 Free T3 0.7 pg/mL (2.0-4.4) L 02/25/17 04:50 TSH 0.84 uIU/ml (0.34-5.60) 02/25/17 04:50 Total Cortisol 12.3 02/24/17 07:50 Urine Source [place] 02/27/17 15:00 Urine Color YELLOW 02/27/17 15:00 Urine Clarity CLOUDY (CLEAR) H 02/27/17 15:00 Urine pH 5.5 (4.6 - 8.0) 02/27/17 15:00 Ur Specific [place] <= 1.005 (1.005-1.030) 02/27/17 15:00 Urine Protein TRACE mg/dL (NEGATIVE) 02/27/17 15:00 Urine Glucose (UA) NEGATIVE mg/dL (NEGATIVE) 02/27/17 15:00 Urine Ketones NEGATIVE mg/dL (NEGATIVE) 02/27/17 15:00 Urine Blood LARGE (NEGATIVE) H 02/27/17 15:00 Urine Nitrate NEGATIVE (NEGATIVE) 02/27/17 15:00 Urine Bilirubin NEGATIVE (NEGATIVE) 02/27/17 15:00 Urine Urobilinogen 0.2 E.U./dL (0.2 - 1.0) 02/27/17 15:00 Ur Leukocyte Esterase LARGE (NEGATIVE) H 02/27/17 15:00 Urine RBC 10-25 /hpf (0-5) H 02/27/17 15:00 Urine WBC >100 /hpf (0-5) H 02/27/17 15:00 Ur Epithelial Cells MODERATE /lpf (FEW) 02/27/17 15:00 Urine Bacteria MODERATE /hpf (NONE SEEN) H 02/27/17 15:00 Urine Yeast MODERATE /hpf (NONE SEEN) H 02/20/17 16:15 Stool Occult Blood NEGATIVE (NEGATIVE) 03/11/17 17:25 Blood Type A POSITIVE 03/13/17 09:15 Antibody Screen NEGATIVE 03/13/17 09:15 Crossmatch See Detail 03/13/17 09:15 - Physical Exam Vitals and I&O: Vital Signs Temp 96.6 F 03/17/17 09:00 Pulse 107 03/17/17 09:00 Resp 21 03/17/17 09:00 BP 119/61 03/17/17 09:00 Pulse Ox 97 03/17/17 09:00 Intake & Output 03/16/17 03/17/17 03/17/17 18:59 06:59 18:59 Intake Total 540 284 Output Total 900 750 Balance -360 -466 Weight (lbs) 116.8 kg 119.748 kg Intake: Intake, IV Amount 50 164 Dextrose 5% 1,000 ml @ 30 164 mls/hr IV .Q24H [facility] Rx#: [id number] Furosemide 100 mg In 50 Sodium Chloride 0.9% 40 ml @ 2.5 mls/hr IV TITR [facility] Rx#:[id number] Tube Feeding 240 120 Other 250 Output: Urine 900 750 Other: # Bowel Movements 1 1 Stool Characteristics Soft Soft Soft Liquid Liquid Liquid Green Green Green Active Medications: Current Medications Acetaminophen (Tylenol) 650 mg PO Q4HR PRN PRN Reason: Pain (Mild) Stop: 04/20/17 12:01 Last Admin: 03/06/17 03:23 Dose: 650 mg Albuterol/Ipratropium (Duoneb Neb) 3 ml HHN Q4HRT PRN PRN Reason: Wheezing Stop: 04/27/17 19:59 Last Admin: 02/28/17 03:18 Dose: 3 ml Albuterol/Ipratropium (Duoneb Neb) 3 ml HHN [id number] [facility] Stop: 04/27/17 19:59 Last Admin: 03/17/17 07:56 Dose: 3 ml Chlorhexidine Gluconate (Peridex) 15 ml MM 0800,1999 [facility] Stop: 04/28/17 19:59 Last Admin: 03/17/17 08:43 Dose: 15 ml Diltiazem HCl (Cardizem) 5 mg IVP Q4H PRN PRN Reason: HR > 120 Stop: 04/27/17 19:59 Last Admin: 02/27/17 04:59 Dose: 5 mg Docusate Sodium (Colace) 100 mg PO BID [facility] Stop: 04/20/17 16:59 Last Admin: 03/17/17 08:44 Dose: Not Given Hydromorphone HCl (Dilaudid) 1 mg IVP Q4HR PRN PRN Reason: Severe Pain Stop: 05/13/17 13:01 Last Admin: 03/16/17 08:36 Dose: 1 mg Phenylephrine HCl 10 mg/ (Sodium Chloride) 250 mls @ 0 mls/hr IV TITR PATRIA; Per Protocol PRN Reason: Protocol Stop: 04/28/17 07:59 Norepinephrine Bitartrate 8 mg (/ Sodium Chloride) 258 mls @ 0 mls/hr IV TITR PATRIA; Per Protocol PRN Reason: Protocol Stop: 04/28/17 09:59 Last Titration: 03/15/17 07:26 Dose: 0 mcg/min, 0 mls/hr Furosemide 100 mg/ Sodium (Chloride) 50 mls @ 2.5 mls/hr IV TITR PATRIA Stop: 05/13/17 14:29 Last Admin: 03/17/17 06:23 Dose: 2.5 mls/hr Dextrose (D5w) 1,000 mls @ 30 mls/hr IV .Q24H [facility] Stop: 05/15/17 17:29 Last Infusion: 03/17/17 06:00 Dose: 30 mls/hr Insulin Aspart (Novolog Insulin Sliding Scale) 0 units SUBQ Q6H [facility]RIA PRN Reason: Protocol Stop: 05/03/17 00:00 Last Admin: 03/17/17 07:00 Dose: 2 units Metoclopramide HCl (Reglan) 5 mg IVP Q6HR [facility] Stop: 05/05/17 17:59 Last Admin: 03/17/17 05:57 Dose: 5 mg Metolazone (Zaroxolyn) 5 mg PO DAILY [facility] Stop: 05/10/17 13:14 Last Admin: 03/17/17 08:44 Dose: Not Given Mirtazapine (Remeron) 15 mg PO HS PATRIA PRN Reason: Protocol Stop: 04/26/17 20:59 Last Admin: 03/16/17 20:30 Dose: 15 mg Miscellaneous (Probiotic Screen) 1 ea MC PRN PRN PRN Reason: PROTOCOL Stop: 04/21/17 16:25 Miscellaneous (Communication Order) 1 ea MC PRN PATRIA Stop: 05/10/17 13:14 Morphine Sulfate (Morphine) 1 mg IVP Q4HR PRN PRN Reason: Severe Pain Stop: 05/04/17 14:13 Last Admin: 03/17/17 05:59 Dose: 1 mg Nitroglycerin (Nitrostat) 0.4 mg SL Q5MIN PRN PRN Reason: Chest Pain Stop: 04/20/17 12:01 Nystatin (Nystop) 100,000 units TP BID PRN PRN Reason: SKIN EXCORIATIONS Stop: 04/21/17 15:35 Last Admin: 03/08/17 06:00 Dose: 100,000 units Ondansetron HCl (Zofran) 4 mg IV Q6H PRN PRN Reason: Nausea Stop: 04/20/17 03:38 Pantoprazole Sodium (Protonix) 40 mg PO DAILY PATRIA Stop: 05/13/17 14:14 Last Admin: 03/17/17 09:42 Dose: 40 mg Potassium Chloride (Klor-Con) 20 meq PO BID PATRIA Stop: 05/15/17 16:59 Last Admin: 03/17/17 09:41 Dose: 20 meq General: Alert, No acute distress HEENT: Atraumatic (on trach/VENT), EOMI Neck: Supple, JVD, +2 carotid pulse wo bruit Cardiovascular: Regular rate Lungs: Other (coarse rhonchi) Abdomen: Bowel sounds, Soft Extremities: Edema, Other ((+3) bipedal edema, decrease right UE edema) Neurological: Sensation intact Skin: no Rash Psych/Mental Status: Mood NL - Procedures Procedures: Procedures Procedure Code Date BYPASS TRACHEA TO CUTANEOUS WITH TRACH DEV, OPEN APPROACH [id number] 02/19/17 INCISION OF WINDPIPE 19903 02/19/17 INSERT EMERGENCY AIRWAY 23142 02/19/17 INSERTION OF ENDOTRACHEAL AIRWAY INTO TRACHEA, VIA OPENING [id number] 02/19/17 RESPIRATORY VENTILATION, GREATER THAN 96 CONSECUTIVE HOURS [id number] 02/19/17 VENT MGMT INPAT INIT DAY 05099 02/19/17 VENT MGMT INPAT SUBQ DAY 64511 02/19/17 Assessment/Plan - Problem List Patient Problems: All Active Problems Acute kidney failure (Acute) 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 Azotemia (Acute) R79.89 Bradycardia (Acute) R00.1 COPD (chronic obstructive pulmonary disease) (Acute) Cardiomegaly (Acute) I51.7 Chest pain (Acute) R07.9 Decubitus ulcer of buttock, 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 - Plan Plan: tracheostomy monitor vitals/diet labs f/up compliance consultant Nutritional Asmnt/Malnutr-PDOC - Dietary Evaluation Malnutrition Findings (Please click <Entered> for more info): Nutritional Asmnt/Malnutrition Start: 02/21/17 18: 20 Text: Status: Complete Freq: Document 02/21/17 18:21 LCHENG (Rec: 02/21/17 18:32 [email or web address]) Nutritional Asmnt/Malnutrition Patient General Information Nutritional Screening High Risk Consult Diagnosis gastric outlet obstruction Pertinent Medical Hx/Surgical Hx HTN, OA, DM, GERD Subjective Information Pt seen sleeping at the time of visit, attempted x 2. Spoke with RN, pt consumed 50% of breakfast and only the soup of lunch today, not much appetite, no complain of N/V. Pt will be NPO from midnight for GI exam tommorrow. Current Diet Order/ Nutrition Support no added salt 4gm, CCHO, no eggs, banana and cereal in morning Pertinent Medications colace, lasix, novolog, levaquin, piperacillin Pertinent Labs 02/20 Na 137, K 4.5, Cl 104, BUN 55, Cr 1.6, Glucose 137, POC 126-199 since admit, Ca 8. 3 Nutritional Hx/Data Height 1.57 m Height (Calculated Centimeters) 157.5 Current Weight (lbs) 97.023 kg Weight (Calculated Kilograms) 97.0 Weight (Calculated Grams) 75783.4 Jeremiah Body Weight 110 % Jeremiah Body Weight 194 Body Mass Index (BMI) 39.1 Weight Status Obese GI Symptoms GI Symptoms None Last BM none Difficult in: None Skin Integrity/Comment: multiple maceration, abrasion to right/left medial thigh Current %PO Poor (25-49%) Estimated Nutritional Goals BEE in Kcals: Adj wt of IBW Calories/Kcals/Kg 27-32 Kcals Calculated Protein: Adj wt of IBW Protein g/k-1.2 Protein Calculated 62-74 Fluid: ml Nutritional Problem 1. Problem Problem inadequate PO intake Etiology poor appetite Signs/Symptoms: PO intake 25-50% Malnutrition Alert Protein-Calorie Malnutrition N/A Is there a minimum of two criteria No selected? Query Text:Check all the applicable criteria. A minimum of two criteria are recommended for diagnosis of either severe or non-severe malnutrition. Intervention/Recommendation Comments 1. Continue with current diet as ordered. 2. Monitor PO intake, GI symptons, wt, labs and skin integrity 3. F/U as high risk in 2-3 days, 02/23-02/24 Expected Outcomes/Goals Expected Outcomes/Goals 1. PO intake to meet at least 75% of nutritional needs. 2. Wt stability, skin to remain intact, labs to improve
--- NOTE | 2017-03-17 10:20 | Operative Report ---
DATE OF SURGERY: 03/17/2017 INPATIENT EGD AND PEG PLACEMENT PROCEDURE PERFORMED: EGD with G-tube placement. PREOPERATIVE DIAGNOSIS: Dysphagia. POSTOPERATIVE DIAGNOSES: Successful G-tube placement. Gastritis and esophagitis. INDICATION: The patient is a 71-year-old female who was admitted to the hospital with gastric outlet obstructive symptoms and found to have pneumonia. She subsequently underwent an EGD that showed gastritis, but no outlet obstruction and has since required a tracheostomy. GI is now asked to place a G-tube for feeding as she has tolerated NG feeds well to this point, but is unable to pass a swallow evaluation. CONSENT: Informed consent was obtained from the patient and the patient's son. The risks and benefits of the procedure were discussed include but not limited to infection, bleeding, perforation, need for surgery, cardiopulmonary complications, missed pathology G-tube site infection, G-tube site bleeding, peritonitis related to G-tube insertion and premature G-tube removal by the patient and . The patient understood the risks and the patient's son understood these risks and wished to go forward with the procedure and signed the consent form. ANESTHESIA: This procedure was done under general anesthesia with the care of anesthesiologist. PROCEDURE IN DETAIL: After the administration of general anesthesia, the patient was placed in the supine position. The mouthpiece was inserted and secured. Next, a gastroscope was introduced into the mouth and guided under direct visualization into the esophagus, stomach and duodenum. The old NG tube was then removed. Within the stomach, there was gastritis noted and a very small gastric erosion, which was noted previously. Also noted was esophagitis, likely due to NG tube. The duodenum appeared normal. Next, the stomach was transilluminated in optimal position for the PEG tube was identified using a single poke method and transillumination from the light source. Lidocaine was then injected in a subcutaneous fashion in this area and the finder needle was observed to directly enter the stomach. Next, a small incision was made at this area and a needle with sheath was introduced into the stomach under direct visualization. Next, the sheath was grasped with the snare by the endoscopist and a guidewire was passed into the sheath. Guidewire was then grasped with the snare and the snare was pulled and guidewire were pulled out of the mouth. Next, a 20-[place] G-tube was affixed to the guidewire and the guidewire and NG tube were then pulled back down through the mouth and esophagus and snugged to the abdominal wall. At this point, the external bumper was placed with 1 cm of space between the external bumper and the skin and antibiotic ointment was placed to the skin area. There is no evidence of bleeding. The scope was reintroduced into the stomach and observed that the internal bolster was in the appropriate place and freely twisted. There were no obvious complications at the end of the procedure. IMPRESSION: Successful placement of a G-tube. RECOMMENDATION: 1. The G-tube can be used immediately for feeds, medications and water flush. Feeding can start in approximately 8 hours from placement of the G-tube. 2. Please start feeds at 10 mL an hour and 8 hours and increase by 10 mL per hour until the goal rate is met. 3. Hold for any residuals greater than 150 mL and check every 6 hours. 4. Of note, Ancef was given prior to this procedure, 1 gram. Thank you for allowing me to participate in this patient's care. Please call with any further questions. [facility]# [id number]
--- NOTE | 2017-03-17 11:50 | General Progress Note ---
Subjective - Review of Systems Service Date: 03/17/17 Objective - Results Result Diagrams: 03/17/17 06:35 03/17/17 06:35 Recent Labs: Laboratory Last Values WBC 14.1 Th/cmm (4.8-10.8) H 03/17/17 06:35 RBC 3.31 Mil/cmm (3.80-5.20) L 03/17/17 06:35 Hgb 9.6 gm/dL (12-16) L 03/17/17 06:35 Hct 28.9 % (41.0-60) L 03/17/17 06:35 MCV 87.5 fl (81-100) 03/17/17 06:35 MCH 29.1 pg (27.0-31.0) 03/17/17 06:35 MCHC Differential 33.3 pg (28.0-36.0) 03/17/17 06:35 RDW 16.5 % (11.5-20.0) 03/17/17 06:35 Plt Count 140 Th/cmm (150-400) L 03/17/17 06:35 MPV 8.0 fl 03/17/17 06:35 Neutrophils % [employer]INE[employer] 03/17/17 06:35 Band Neutrophils % 9 % (0-10) 03/17/17 06:35 Lymphocytes % [employer] MECH[employer]ICAL ENGINEER 03/17/17 06:35 Monocytes % [employer]IE[employer] MECHANICAL ENGINEER 03/17/17 06:35 Eosinophils % [employer]IE[employer] MECH[employer]ICAL ENGINEER 03/17/17 06:35 Basophils % [employer]IE[employer] MECH[employer]ICAL ENGINEER 03/17/17 06:35 Neutrophils (Manual) 81 % (40-80) H 03/17/17 06:35 Lymphocytes 5 % (20-50) L 03/17/17 06:35 Monocytes 2 % (2-10) 03/17/17 06:35 Eosinophils 3 % (0-5) 03/17/17 06:35 Metamyelocytes 1 % (0-0) H 02/18/17 23:35 Hypochromia 1+ 02/18/17 23:35 Platelet Estimate SLIGHT DECREASED (NORMAL) 03/17/17 06:35 Platelet Morphology (NORMAL) 03/04/17 08:00 Plt Count 140 Th/cmm (150-750) L 03/17/17 06:35 PT 13.5 SECONDS (9.5-11.5) H 03/17/17 06:35 INR 1.28 (0.5-1.4) 03/17/17 06:35 PTT (Actin FS) 35.0 SECONDS (26.0-38.0) 03/17/17 06:35 Fibrinogen 367.0 mg/dL (200.0-400.0) 03/17/17 06:35 D-Dimer 3520 ng/mL (100-400) H 03/17/17 06:35 Specimen Source Arterial 03/11/17 09:40 Sample Site Right Radial 03/11/17 09:40 pH 7.29 (7.35-7.45) L 03/11/17 09:40 pCO2 44.0 mmHg (35.0-45.0) 03/11/17 09:40 pO2 66.0 mmHg (80.0-100.0) L 03/11/17 09:40 HCO3 20.6 mEq/L (20.0-26.0) 03/11/17 09:40 Base Excess -5.3 mEq/L (-3.0-3.0) L 03/11/17 09:40 O2 Saturation 90.0 % (92.0-100.0) L 03/11/17 09:40 Jorje Test YES 03/11/17 09:40 Vent Rate 4 03/11/17 09:40 Inspired O2 30 03/11/17 09:40 Tidal Volume 550 03/11/17 09:40 PEEP 5 03/11/17 09:40 Pressure (ins/psv/peep) 15 03/11/17 09:40 Critical Value E.HERNANDEZ 03/11/17 09:40 Sodium 139 mEq/L (136-145) 03/17/17 06:35 Potassium 3.2 mEq/L (3.5-5.1) L 03/17/17 06:35 Chloride 108 mEq/L (98-107) H 03/17/17 06:35 Carbon Dioxide 21.0 mEq/L (21.0-31.0) 03/17/17 06:35 Anion Gap 13.2 (7.0-16.0) 03/17/17 06:35 BUN 45 mg/dL (7-25) H 03/17/17 06:35 Creatinine 1.6 mg/dL (0.6-1.2) H 03/17/17 06:35 Est GFR ( Amer) 41.1 ml/min (>90) 03/17/17 06:35 Est GFR (Non-Af Amer) 34.0 ml/min 03/17/17 06:35 BUN/Creatinine Ratio 28.1 03/17/17 06:35 Glucose 174 mg/dL (70-105) H 03/17/17 06:35 POC Glucose 159 MG/DL (70 - 105) H 03/17/17 11:37 Hemoglobin A1c % 5.8 % (4.0-6.0) 02/22/17 10:38 Whole Bld Lactic Acid 2.40 mmol/L (0.60-1.99) H* 02/27/17 15:04 Calcium 8.2 mg/dL (8.6-10.3) L 03/17/17 06:35 Phosphorus 2.5 mg/dL (2.5-5.0) 03/01/17 09:15 Magnesium 2.1 mg/dL (1.9-2.7) 03/01/17 09:15 Total Bilirubin 0.5 mg/dL (0.3-1.0) 03/11/17 08:15 Direct Bilirubin 0.09 mg/dL (0.0-0.2) 02/18/17 23:35 AST 19 U/L (13-39) 03/11/17 08:15 ALT 5 U/L (7-52) L 03/11/17 08:15 Alkaline Phosphatase 69 U/L (34-104) 03/11/17 08:15 Ammonia 38 umol/L (16-53) 03/01/17 17:28 B-Natriuretic Peptide 158.0 pg/mL (5.0-100.0) H 03/04/17 15:39 Total Protein 5.2 gm/dL (6.0-8.3) L 03/11/17 08:15 Albumin 2.9 gm/dL (3.7-5.3) L 03/11/17 08:15 Globulin 2.3 gm/dL 03/11/17 08:15 Albumin/Globulin Ratio 1.3 (1.0-1.8) 03/11/17 08:15 Amylase 36 U/L (29-103) 02/18/17 23:35 Lipase 10 U/L (11-82) L 02/18/17 23:35 Vitamin B12 860 pg/mL (232-1245) 02/26/17 04:45 Free T4 1.04 ng/dL (0.82-1.77) 02/25/17 04:50 Free T3 0.7 pg/mL (2.0-4.4) L 02/25/17 04:50 TSH 0.84 uIU/ml (0.34-5.60) 02/25/17 04:50 Total Cortisol 12.3 02/24/17 07:50 Urine Source [place] 02/27/17 15:00 Urine Color YELLOW 02/27/17 15:00 Urine Clarity CLOUDY (CLEAR) H 02/27/17 15:00 Urine pH 5.5 (4.6 - 8.0) 02/27/17 15:00 Ur Specific [place] <= 1.005 (1.005-1.030) 02/27/17 15:00 Urine Protein TRACE mg/dL (NEGATIVE) 02/27/17 15:00 Urine Glucose (UA) NEGATIVE mg/dL (NEGATIVE) 02/27/17 15:00 Urine Ketones NEGATIVE mg/dL (NEGATIVE) 02/27/17 15:00 Urine Blood LARGE (NEGATIVE) H 02/27/17 15:00 Urine Nitrate NEGATIVE (NEGATIVE) 02/27/17 15:00 Urine Bilirubin NEGATIVE (NEGATIVE) 02/27/17 15:00 Urine Urobilinogen 0.2 E.U./dL (0.2 - 1.0) 02/27/17 15:00 Ur Leukocyte Esterase LARGE (NEGATIVE) H 02/27/17 15:00 Urine RBC 10-25 /hpf (0-5) H 02/27/17 15:00 Urine WBC >100 /hpf (0-5) H 02/27/17 15:00 Ur Epithelial Cells MODERATE /lpf (FEW) 02/27/17 15:00 Urine Bacteria MODERATE /hpf (NONE SEEN) H 02/27/17 15:00 Urine Yeast MODERATE /hpf (NONE SEEN) H 02/20/17 16:15 Stool Occult Blood NEGATIVE (NEGATIVE) 03/11/17 17:25 Blood Type A POSITIVE 03/13/17 09:15 Antibody Screen NEGATIVE 03/13/17 09:15 Crossmatch See Detail 03/13/17 09:15 - Physical Exam Vitals and I&O: Vital Signs Temp 97.9 F 03/17/17 11:00 Pulse 105 03/17/17 11:00 Resp 17 03/17/17 11:00 BP 112/59 03/17/17 11:27 Pulse Ox 97 03/17/17 11:00 Intake & Output 03/16/17 03/17/17 03/17/17 18:59 06:59 18:59 Intake Total 540 284 12.667 Output Total 900 750 Balance -360 -466 12.667 Weight (lbs) 116.8 kg 119.748 kg Intake: Intake, IV Amount 50 164 12.667 Dextrose 5% 1,000 ml @ 30 164 mls/hr IV .Q24H [facility] Rx#: [id number] Furosemide 100 mg In 50 12.667 Sodium Chloride 0.9% 40 ml @ 2.5 mls/hr IV TITR [facility] Rx#:[id number] Tube Feeding 240 120 Other 250 Output: Urine 900 750 Other: # Bowel Movements 1 1 Stool Characteristics Soft Soft Soft Liquid Liquid Liquid Green Green Green Active Medications: Current Medications Acetaminophen (Tylenol) 650 mg PO Q4HR PRN PRN Reason: Pain (Mild) Stop: 04/20/17 12:01 Last Admin: 03/06/17 03:23 Dose: 650 mg Albuterol/Ipratropium (Duoneb Neb) 3 ml HHN Q4HRT PRN PRN Reason: Wheezing Stop: 04/27/17 19:59 Last Admin: 02/28/17 03:18 Dose: 3 ml Albuterol/Ipratropium (Duoneb Neb) 3 ml HHN [id number] [facility] Stop: 04/27/17 19:59 Last Admin: 03/17/17 07:56 Dose: 3 ml Chlorhexidine Gluconate (Peridex) 15 ml MM 0800,1999 [facility] Stop: 04/28/17 19:59 Last Admin: 03/17/17 08:43 Dose: 15 ml Diltiazem HCl (Cardizem) 5 mg IVP Q4H PRN PRN Reason: HR > 120 Stop: 04/27/17 19:59 Last Admin: 02/27/17 04:59 Dose: 5 mg Docusate Sodium (Colace) 100 mg PO BID [facility] Stop: 04/20/17 16:59 Last Admin: 03/17/17 08:44 Dose: Not Given Hydromorphone HCl (Dilaudid) 1 mg IVP Q4HR PRN PRN Reason: Severe Pain Stop: 05/13/17 13:01 Last Admin: 03/16/17 08:36 Dose: 1 mg Phenylephrine HCl 10 mg/ (Sodium Chloride) 250 mls @ 0 mls/hr IV TITR [facility]; Per Protocol PRN Reason: Protocol Stop: 04/28/17 07:59 Norepinephrine Bitartrate 8 mg (/ Sodium Chloride) 258 mls @ 0 mls/hr IV TITR [facility]; Per Protocol PRN Reason: Protocol Stop: 04/28/17 09:59 Last Titration: 03/15/17 07:26 Dose: 0 mcg/min, 0 mls/hr Furosemide 100 mg/ Sodium (Chloride) 50 mls @ 2.5 mls/hr IV TITR [facility] Stop: 05/13/17 14:29 Last Admin: 03/17/17 11:27 Dose: 2.5 mls/hr Dextrose (D5w) 1,000 mls @ 30 mls/hr IV .Q24H [facility] Stop: 05/15/17 17:29 Last Infusion: 03/17/17 06:00 Dose: 30 mls/hr Insulin Aspart (Novolog Insulin Sliding Scale) 0 units SUBQ Q6H [facility] PRN Reason: Protocol Stop: 05/03/17 00:00 Last Admin: 03/17/17 11:38 Dose: 2 units Metoclopramide HCl (Reglan) 5 mg IVP Q6HR [facility] Stop: 05/05/17 17:59 Last Admin: 03/17/17 11:33 Dose: 5 mg Metolazone (Zaroxolyn) 5 mg PO DAILY [facility] Stop: 05/10/17 13:14 Last Admin: 03/17/17 08:44 Dose: Not Given Mirtazapine (Remeron) 15 mg PO HS [facility] PRN Reason: Protocol Stop: 04/26/17 20:59 Last Admin: 03/16/17 20:30 Dose: 15 mg Miscellaneous (Probiotic Screen) 1 ea MC PRN PRN PRN Reason: PROTOCOL Stop: 04/21/17 16:25 Miscellaneous (Communication Order) 1 ea MC PRN [facility] Stop: 05/10/17 13:14 Morphine Sulfate (Morphine) 1 mg IVP Q4HR PRN PRN Reason: Severe Pain Stop: 05/04/17 14:13 Last Admin: 03/17/17 05:59 Dose: 1 mg Nitroglycerin (Nitrostat) 0.4 mg SL Q5MIN PRN PRN Reason: Chest Pain Stop: 04/20/17 12:01 Nystatin (Nystop) 100,000 units TP BID PRN PRN Reason: SKIN EXCORIATIONS Stop: 04/21/17 15:35 Last Admin: 03/08/17 06:00 Dose: 100,000 units Ondansetron HCl (Zofran) 4 mg IV Q6H PRN PRN Reason: Nausea Stop: 04/20/17 03:38 Pantoprazole Sodium (Protonix) 40 mg PO DAILY [facility] Stop: 05/13/17 14:14 Last Admin: 03/17/17 09:42 Dose: 40 mg Potassium Chloride (Klor-Con) 20 meq PO BID [facility] Stop: 05/15/17 16:59 Last Admin: 03/17/17 09:41 Dose: 20 meq General: Alert, No acute distress HEENT: Atraumatic (on trach/VENT), EOMI Neck: Supple, JVD, +2 carotid pulse wo bruit Cardiovascular: Regular rate Lungs: Other (coarse rhonchi) Abdomen: Bowel sounds, Soft Extremities: Edema, Other ((+3) bipedal edema, decrease right UE edema) Neurological: Sensation intact Skin: no Rash Psych/Mental Status: Mood NL - Procedures Procedures: Procedures Procedure Code Date BYPASS TRACHEA TO CUTANEOUS WITH TRACH DEV, OPEN APPROACH [id number] 02/19/17 INCISION OF WINDPIPE 73991 02/19/17 INSERT EMERGENCY AIRWAY 05338 02/19/17 INSERTION OF ENDOTRACHEAL AIRWAY INTO TRACHEA, VIA OPENING [id number] 02/19/17 RESPIRATORY VENTILATION, GREATER THAN 96 CONSECUTIVE HOURS [id number] 02/19/17 VENT MGMT INPAT INIT DAY 91300 02/19/17 VENT MGMT INPAT SUBQ DAY 94058 02/19/17 Assessment/Plan - Problem List Patient Problems: All Active Problems Acute kidney failure (Acute) 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 Azotemia (Acute) R79.89 Bradycardia (Acute) R00.1 COPD (chronic obstructive pulmonary disease) (Acute) Cardiomegaly (Acute) I51.7 Chest pain (Acute) R07.9 Decubitus ulcer of buttock, 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 - Assessment Assessment: * SEPTIC SHOCK * DIC improving * RESPIRATORY FAILURE * RENAL FAILURE no need for transfusion Nutritional Asmnt/Malnutr-PDOC - Dietary Evaluation Malnutrition Findings (Please click <Entered> for more info): Nutritional Asmnt/Malnutrition Start: 02/21/17 18: 20 Text: Status: Complete Freq: Document 02/21/17 18:21 LCHENG (Rec: 02/21/17 18:32 LCHENG [id number]) Nutritional Asmnt/Malnutrition Patient General Information Nutritional Screening High Risk Consult Diagnosis gastric outlet obstruction Pertinent Medical Hx/Surgical Hx HTN, OA, DM, GERD Subjective Information Pt seen sleeping at the time of visit, attempted x 2. Spoke with RN, pt consumed 50% of breakfast and only the soup of lunch today, not much appetite, no complain of N/V. Pt will be NPO from midnight for GI exam tommorrow. Current Diet Order/ Nutrition Support no added salt 4gm, CCHO, no eggs, banana and cereal in morning Pertinent Medications colace, lasix, novolog, levaquin, piperacillin Pertinent Labs 02/20 Na 137, K 4.5, Cl 104, BUN 55, Cr 1.6, Glucose 137, POC 126-199 since admit, Ca 8. 3 Nutritional Hx/Data Height 1.57 m Height (Calculated Centimeters) 157.5 Current Weight (lbs) 97.023 kg Weight (Calculated Kilograms) 97.0 Weight (Calculated Grams) 77611.4 [place] Body Weight 110 % [place] Body Weight 194 Body Mass Index (BMI) 39.1 Weight Status Obese GI Symptoms GI Symptoms None Last BM none Difficult in: None Skin Integrity/Comment: multiple maceration, abrasion to right/left medial thigh Current %PO Poor (25-49%) Estimated Nutritional Goals BEE in Kcals: Adj wt of IBW Calories/Kcals/Kg 27-32 Kcals Calculated Protein: Adj wt of IBW Protein g/k-1.2 Protein Calculated 62-74 Fluid: ml [id number] Nutritional Problem 1. Problem Problem inadequate PO intake Etiology poor appetite Signs/Symptoms: PO intake 25-50% Malnutrition Alert Protein-Calorie Malnutrition N/A Is there a minimum of two criteria No selected? Query Text:Check all the applicable criteria. A minimum of two criteria are recommended for diagnosis of either severe or non-severe malnutrition. Intervention/Recommendation Comments 1. Continue with current diet as ordered. 2. Monitor PO intake, GI symptons, wt, labs and skin integrity 3. F/U as high risk in 2-3 days, 02/23-02/24 Expected Outcomes/Goals Expected Outcomes/Goals 1. PO intake to meet at least 75% of nutritional needs. 2. Wt stability, skin to remain intact, labs to improve
[2017-03-17] MEDS ORDERED: Potassium Chloride 20 mEq ER Tab PO ONE (12:37)
--- NOTE | 2017-03-17 14:06 | General Progress Note ---
Subjective - Review of Systems Service Date: 03/17/17 Subjective: very awake, on vent Objective - Results Result Diagrams: 03/17/17 06:35 03/17/17 06:35 Recent Labs: Laboratory Last Values WBC 14.1 Th/cmm (4.8-10.8) H 03/17/17 06:35 RBC 3.31 Mil/cmm (3.80-5.20) L 03/17/17 06:35 Hgb 9.6 gm/dL (12-16) L 03/17/17 06:35 Hct 28.9 % (41.0-60) L 03/17/17 06:35 MCV 87.5 fl (81-100) 03/17/17 06:35 MCH 29.1 pg (27.0-31.0) 03/17/17 06:35 MCHC Differential 33.3 pg (28.0-36.0) 03/17/17 06:35 RDW 16.5 % (11.5-20.0) 03/17/17 06:35 Plt Count 140 Th/cmm (150-400) L 03/17/17 06:35 MPV 8.0 fl 03/17/17 06:35 Neutrophils % TRANSPORTATION ASSISTANT 03/17/17 06:35 Band Neutrophils % 9 % (0-10) 03/17/17 06:35 Lymphocytes % TRANSPORTATION ASSISTANT 03/17/17 06:35 Monocytes % TRANSPORTATION ASSISTANT 03/17/17 06:35 Eosinophils % TRANSPORTATION ASSISTANT 03/17/17 06:35 Basophils % TRANSPORTATION ASSISTANT 03/17/17 06:35 Neutrophils (Manual) 81 % (40-80) H 03/17/17 06:35 Lymphocytes 5 % (20-50) L 03/17/17 06:35 Monocytes 2 % (2-10) 03/17/17 06:35 Eosinophils 3 % (0-5) 03/17/17 06:35 Metamyelocytes 1 % (0-0) H 02/18/17 23:35 Hypochromia 1+ 02/18/17 23:35 Platelet Estimate SLIGHT DECREASED (NORMAL) 03/17/17 06:35 Platelet Morphology (NORMAL) 03/04/17 08:00 Plt Count 140 Th/cmm (150-750) L 03/17/17 06:35 PT 13.5 SECONDS (9.5-11.5) H 03/17/17 06:35 INR 1.28 (0.5-1.4) 03/17/17 06:35 PTT (Actin FS) 35.0 SECONDS (26.0-38.0) 03/17/17 06:35 Fibrinogen 367.0 mg/dL (200.0-400.0) 03/17/17 06:35 D-Dimer 3520 ng/mL (100-400) H 03/17/17 06:35 Specimen Source Arterial 03/11/17 09:40 Sample Site Right Radial 03/11/17 09:40 pH 7.29 (7.35-7.45) L 03/11/17 09:40 pCO2 44.0 mmHg (35.0-45.0) 03/11/17 09:40 pO2 66.0 mmHg (80.0-100.0) L 03/11/17 09:40 HCO3 20.6 mEq/L (20.0-26.0) 03/11/17 09:40 Base Excess -5.3 mEq/L (-3.0-3.0) L 03/11/17 09:40 O2 Saturation 90.0 % (92.0-100.0) L 03/11/17 09:40 Jorje Test YES 03/11/17 09:40 Vent Rate 4 03/11/17 09:40 Inspired O2 30 03/11/17 09:40 Tidal Volume 550 03/11/17 09:40 PEEP 5 03/11/17 09:40 Pressure (ins/psv/peep) 15 03/11/17 09:40 Critical Value E.HERNANDEZ 03/11/17 09:40 Sodium 139 mEq/L (136-145) 03/17/17 06:35 Potassium 3.2 mEq/L (3.5-5.1) L 03/17/17 06:35 Chloride 108 mEq/L (98-107) H 03/17/17 06:35 Carbon Dioxide 21.0 mEq/L (21.0-31.0) 03/17/17 06:35 Anion Gap 13.2 (7.0-16.0) 03/17/17 06:35 BUN 45 mg/dL (7-25) H 03/17/17 06:35 Creatinine 1.6 mg/dL (0.6-1.2) H 03/17/17 06:35 Est GFR ( Amer) 41.1 ml/min (>90) 03/17/17 06:35 Est GFR (Non-Af Amer) 34.0 ml/min 03/17/17 06:35 BUN/Creatinine Ratio 28.1 03/17/17 06:35 Glucose 174 mg/dL (70-105) H 03/17/17 06:35 POC Glucose 159 MG/DL (70 - 105) H 03/17/17 11:37 Hemoglobin A1c % 5.8 % (4.0-6.0) 02/22/17 10:38 Whole Bld Lactic Acid 2.40 mmol/L (0.60-1.99) H* 02/27/17 15:04 Calcium 8.2 mg/dL (8.6-10.3) L 03/17/17 06:35 Phosphorus 2.5 mg/dL (2.5-5.0) 03/01/17 09:15 Magnesium 2.1 mg/dL (1.9-2.7) 03/01/17 09:15 Total Bilirubin 0.5 mg/dL (0.3-1.0) 03/11/17 08:15 Direct Bilirubin 0.09 mg/dL (0.0-0.2) 02/18/17 23:35 AST 19 U/L (13-39) 03/11/17 08:15 ALT 5 U/L (7-52) L 03/11/17 08:15 Alkaline Phosphatase 69 U/L (34-104) 03/11/17 08:15 Ammonia 38 umol/L (16-53) 03/01/17 17:28 B-Natriuretic Peptide 158.0 pg/mL (5.0-100.0) H 03/04/17 15:39 Total Protein 5.2 gm/dL (6.0-8.3) L 03/11/17 08:15 Albumin 2.9 gm/dL (3.7-5.3) L 03/11/17 08:15 Globulin 2.3 gm/dL 03/11/17 08:15 Albumin/Globulin Ratio 1.3 (1.0-1.8) 03/11/17 08:15 Amylase 36 U/L (29-103) 02/18/17 23:35 Lipase 10 U/L (11-82) L 02/18/17 23:35 Vitamin B12 860 pg/mL (232-1245) 02/26/17 04:45 Free T4 1.04 ng/dL (0.82-1.77) 02/25/17 04:50 Free T3 0.7 pg/mL (2.0-4.4) L 02/25/17 04:50 TSH 0.84 uIU/ml (0.34-5.60) 02/25/17 04:50 Total Cortisol 12.3 02/24/17 07:50 Urine Source [place] 02/27/17 15:00 Urine Color YELLOW 02/27/17 15:00 Urine Clarity CLOUDY (CLEAR) H 02/27/17 15:00 Urine pH 5.5 (4.6 - 8.0) 02/27/17 15:00 Ur Specific [place] <= 1.005 (1.005-1.030) 02/27/17 15:00 Urine Protein TRACE mg/dL (NEGATIVE) 02/27/17 15:00 Urine Glucose (UA) NEGATIVE mg/dL (NEGATIVE) 02/27/17 15:00 Urine Ketones NEGATIVE mg/dL (NEGATIVE) 02/27/17 15:00 Urine Blood LARGE (NEGATIVE) H 02/27/17 15:00 Urine Nitrate NEGATIVE (NEGATIVE) 02/27/17 15:00 Urine Bilirubin NEGATIVE (NEGATIVE) 02/27/17 15:00 Urine Urobilinogen 0.2 E.U./dL (0.2 - 1.0) 02/27/17 15:00 Ur Leukocyte Esterase LARGE (NEGATIVE) H 02/27/17 15:00 Urine RBC 10-25 /hpf (0-5) H 02/27/17 15:00 Urine WBC >100 /hpf (0-5) H 02/27/17 15:00 Ur Epithelial Cells MODERATE /lpf (FEW) 02/27/17 15:00 Urine Bacteria MODERATE /hpf (NONE SEEN) H 02/27/17 15:00 Urine Yeast MODERATE /hpf (NONE SEEN) H 02/20/17 16:15 Stool Occult Blood NEGATIVE (NEGATIVE) 03/11/17 17:25 Blood Type A POSITIVE 03/13/17 09:15 Antibody Screen NEGATIVE 03/13/17 09:15 Crossmatch See Detail 03/13/17 09:15 - Physical Exam Vitals and I&O: Vital Signs Temp 97.9 F 03/17/17 13:00 Pulse 97 03/17/17 13:00 Resp 13 03/17/17 13:00 BP 94/54 03/17/17 13:00 Pulse Ox 100 03/17/17 13:00 Intake & Output 03/16/17 03/17/17 03/17/17 18:59 06:59 18:59 Intake Total 540 284 12.667 Output Total 900 750 Balance -360 -466 12.667 Weight (lbs) 116.8 kg 119.748 kg Intake: Intake, IV Amount 50 164 12.667 Dextrose 5% 1,000 ml @ 30 164 mls/hr IV .Q24H [facility] Rx#: [id number] Furosemide 100 mg In 50 12.667 Sodium Chloride 0.9% 40 ml @ 2.5 mls/hr IV TITR [facility] Rx#:[id number] Tube Feeding 240 120 Other 250 Output: Urine 900 750 Other: # Bowel Movements 1 1 Stool Characteristics Soft Soft Liquid Liquid Green Green Active Medications: Current Medications Acetaminophen (Tylenol) 650 mg PO Q4HR PRN PRN Reason: Pain (Mild) Stop: 04/20/17 12:01 Last Admin: 03/06/17 03:23 Dose: 650 mg Albuterol/Ipratropium (Duoneb Neb) 3 ml HHN Q4HRT PRN PRN Reason: Wheezing Stop: 04/27/17 19:59 Last Admin: 02/28/17 03:18 Dose: 3 ml Albuterol/Ipratropium (Duoneb Neb) 3 ml HHN [id number] [facility] Stop: 04/27/17 19:59 Last Admin: 03/17/17 07:56 Dose: 3 ml Chlorhexidine Gluconate (Peridex) 15 ml MM 0800,1999 [facility] Stop: 04/28/17 19:59 Last Admin: 03/17/17 08:43 Dose: 15 ml Diltiazem HCl (Cardizem) 5 mg IVP Q4H PRN PRN Reason: HR > 120 Stop: 04/27/17 19:59 Last Admin: 02/27/17 04:59 Dose: 5 mg Docusate Sodium (Colace) 100 mg PO BID [facility] Stop: 04/20/17 16:59 Last Admin: 03/17/17 08:44 Dose: Not Given Hydromorphone HCl (Dilaudid) 1 mg IVP Q4HR PRN PRN Reason: Severe Pain Stop: 05/13/17 13:01 Last Admin: 03/16/17 08:36 Dose: 1 mg Phenylephrine HCl 10 mg/ (Sodium Chloride) 250 mls @ 0 mls/hr IV TITR [facility]; Per Protocol PRN Reason: Protocol Stop: 04/28/17 07:59 Norepinephrine Bitartrate 8 mg (/ Sodium Chloride) 258 mls @ 0 mls/hr IV TITR [facility]; Per Protocol PRN Reason: Protocol Stop: 04/28/17 09:59 Last Titration: 03/15/17 07:26 Dose: 0 mcg/min, 0 mls/hr Furosemide 100 mg/ Sodium (Chloride) 50 mls @ 2.5 mls/hr IV TITR [facility] Stop: 05/13/17 14:29 Last Admin: 03/17/17 11:27 Dose: 2.5 mls/hr Dextrose (D5w) 1,000 mls @ 30 mls/hr IV .Q24H [facility] Stop: 05/15/17 17:29 Last Infusion: 03/17/17 06:00 Dose: 30 mls/hr Insulin Aspart (Novolog Insulin Sliding Scale) 0 units SUBQ Q6H [facility] PRN Reason: Protocol Stop: 05/03/17 00:00 Last Admin: 03/17/17 11:38 Dose: 2 units Metoclopramide HCl (Reglan) 5 mg IVP Q6HR [facility] Stop: 05/05/17 17:59 Last Admin: 03/17/17 11:33 Dose: 5 mg Metolazone (Zaroxolyn) 5 mg PO DAILY [facility] Stop: 05/10/17 13:14 Last Admin: 03/17/17 08:44 Dose: Not Given Mirtazapine (Remeron) 15 mg PO HS [facility] PRN Reason: Protocol Stop: 04/26/17 20:59 Last Admin: 03/16/17 20:30 Dose: 15 mg Miscellaneous (Probiotic Screen) 1 ea MC PRN PRN PRN Reason: PROTOCOL Stop: 04/21/17 16:25 Miscellaneous (Communication Order) 1 ea MC PRN [facility] Stop: 05/10/17 13:14 Morphine Sulfate (Morphine) 1 mg IVP Q4HR PRN PRN Reason: Severe Pain Stop: 05/04/17 14:13 Last Admin: 03/17/17 05:59 Dose: 1 mg Nitroglycerin (Nitrostat) 0.4 mg SL Q5MIN PRN PRN Reason: Chest Pain Stop: 04/20/17 12:01 Nystatin (Nystop) 100,000 units TP BID PRN PRN Reason: SKIN EXCORIATIONS Stop: 04/21/17 15:35 Last Admin: 03/08/17 06:00 Dose: 100,000 units Ondansetron HCl (Zofran) 4 mg IV Q6H PRN PRN Reason: Nausea Stop: 04/20/17 03:38 Pantoprazole Sodium (Protonix) 40 mg PO DAILY [facility] Stop: 05/13/17 14:14 Last Admin: 03/17/17 09:42 Dose: 40 mg Potassium Chloride (Klor-Con) 20 meq PO BID [facility] Stop: 05/15/17 16:59 Last Admin: 03/17/17 09:41 Dose: 20 meq General: Alert, No acute distress HEENT: Atraumatic (on trach/VENT), EOMI Neck: Supple, JVD, +2 carotid pulse wo bruit Cardiovascular: Regular rate Lungs: Other (coarse rhonchi) Abdomen: Bowel sounds, Soft Extremities: Edema, Other ((+3) bipedal edema, decrease right UE edema) Neurological: Sensation intact Skin: no Rash Psych/Mental Status: Mood NL - Procedures Procedures: Procedures Procedure Code Date BYPASS TRACHEA TO CUTANEOUS WITH TRACH DEV, OPEN APPROACH [id number] 02/19/17 INCISION OF WINDPIPE 96356 02/19/17 INSERT EMERGENCY AIRWAY 04708 02/19/17 INSERTION OF ENDOTRACHEAL AIRWAY INTO TRACHEA, VIA OPENING [id number] 02/19/17 RESPIRATORY VENTILATION, GREATER THAN 96 CONSECUTIVE HOURS [id number] 02/19/17 VENT MGMT INPAT INIT DAY 51417 02/19/17 VENT MGMT INPAT SUBQ DAY 68394 02/19/17 Assessment/Plan - Problem List Patient Problems: All Active Problems Acute kidney failure (Acute) 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 Azotemia (Acute) R79.89 Bradycardia (Acute) R00.1 COPD (chronic obstructive pulmonary disease) (Acute) Cardiomegaly (Acute) I51.7 Chest pain (Acute) R07.9 Decubitus ulcer of buttock, 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 - Assessment Assessment: SOHAIL on CKD Acute resp failure on vent 2nd CHF, HAP, possible SOFIE, Exacerbation COPD Shock Sepsis DJD Type 2 DM GERD SOFIE Hyponatremia S/p [place], Appe anasarca Thrombocytopenia Anemia of CD - Plan Plan: Lab - Result Diagrams 03/01/17 09:15 03/01/17 09:15 Current Medications Acetaminophen (Tylenol) 650 mg PO Q4HR PRN PRN Reason: Pain (Mild) Stop: 04/20/17 12:01 Last Admin: 02/21/17 09:54 Dose: 650 mg Acetaminophen/Hydrocodone Bitart ([place] 5mg/325mg) 1 tab PO Q6H PRN PRN Reason: PAIN Stop: 04/20/17 13:24 Albuterol/Ipratropium (Duoneb Neb) 3 ml HHN Q4HRT PRN PRN Reason: Wheezing Stop: 04/27/17 19:59 Last Admin: 02/28/17 03:18 Dose: 3 ml Albuterol/Ipratropium (Duoneb Neb) 3 ml HHN [id number] [facility] Stop: 04/27/17 19:59 Last Admin: 03/01/17 13:49 Dose: 3 ml Aspirin (Ecotrin) 81 mg PO DAILY [facility] Stop: 04/21/17 08:59 Last Admin: 03/01/17 09:30 Dose: Not Given Chlorhexidine Gluconate (Peridex) 15 ml MM 0800,2000 [facility] Stop: 04/28/17 19:59 Last Admin: 03/01/17 08:30 Dose: 15 ml Diltiazem HCl (Cardizem) 5 mg IVP Q4H PRN PRN Reason: HR > 120 Stop: 04/27/17 19:59 Last Admin: 02/27/17 04:59 Dose: 5 mg Docusate Sodium (Colace) 100 mg PO BID [facility] Stop: 04/20/17 16:59 Last Admin: 03/01/17 09:31 Dose: Not Given Fluconazole (Diflucan) 100 mg PO DAILY [facility] Stop: 03/08/17 08:59 Last Admin: 03/01/17 09:31 Dose: Not Given Furosemide (Lasix) 40 mg PO DAILY [facility] Stop: 04/21/17 08:59 Last Admin: 03/01/17 09:31 Dose: Not Given Pantoprazole Sodium 80 mg/ (Sodium Chloride) 100 mls @ 10 mls/hr IV Q10H [facility] Stop: 04/20/17 08:59 Last Admin: 03/01/17 09:31 Dose: 10 mls/hr Linezolid (Zyvox) 600 mg in 300 mls @ 300 mls/hr IV Q12HR [facility] Stop: 04/22/17 20:59 Last Infusion: 03/01/17 10:00 Dose: Infused Levofloxacin (Levaquin Pb) 250 mg in 50 mls @ 50 mls/hr IV Q24HR [facility] Stop: 04/23/17 20:59 Last Infusion: 02/28/17 21:17 Dose: Infused Phenylephrine HCl 10 mg/ (Sodium Chloride) 250 mls @ 0 mls/hr IV TITR [facility]; Per Protocol PRN Reason: Protocol Stop: 04/28/17 07:59 Norepinephrine Bitartrate 8 mg (/ Sodium Chloride) 258 mls @ 0 mls/hr IV TITR [facility]; Per Protocol PRN Reason: Protocol Stop: 04/28/17 09:59 Last Titration: 03/01/17 06:31 Dose: 6 mcg/min, 11.61 mls/hr Meropenem 1 gm/ Dextrose 100 mls @ 100 mls/hr IV Q12H [facility] Stop: 04/28/17 12:29 Last Infusion: 03/01/17 13:00 Dose: Infused Potassium Chloride/Dextrose/Sod Cl (D5-0.9ns W/Kcl 20meq) 1,000 mls @ 75 mls/ hr IV .[id number] [facility] Stop: 04/30/17 14:41 Insulin Aspart (Novolog Insulin Sliding Scale) 0 units SUBQ ACHS [facility] PRN Reason: Protocol Stop: 04/20/17 16:29 Last Admin: 03/01/17 12:01 Dose: 4 units Mirtazapine (Remeron) 15 mg PO HS [facility] PRN Reason: Protocol Stop: 04/26/17 20:59 Last Admin: 02/28/17 21:23 Dose: 15 mg Miscellaneous (Probiotic Screen) 1 ea MC PRN PRN PRN Reason: PROTOCOL Stop: 04/21/17 16:25 Morphine Sulfate (Morphine) 1 mg IVP Q3H PRN PRN Reason: Pain (Moderate) Stop: 04/20/17 01:59 Last Admin: 03/01/17 09:28 Dose: 1 mg Nitroglycerin (Nitrostat) 0.4 mg SL Q5MIN PRN PRN Reason: Chest Pain Stop: 04/20/17 12:01 Nystatin (Nystop) 100,000 units TP BID PRN PRN Reason: SKIN EXCORIATIONS Stop: 04/21/17 15:35 Last Admin: 02/21/17 11:46 Dose: 100,000 units Ondansetron HCl (Zofran) 4 mg IV Q6H PRN PRN Reason: Nausea Stop: 04/20/17 03:38 Spironolactone (Aldactone) 50 mg PO BID [facility] Stop: 04/27/17 08:59 Last Admin: 03/01/17 09:29 Dose: Not Given Lab - Result Diagrams 03/17/17 06:35 03/17/17 06:35 Na up to 139 kidney fnc remain stable w/ BUN/Cr of 45/1.6 UOP improved to nam 2L CXR still w/ CHF, B/L effusions; switch Lasix po, add metolazone DC spironolactone f/u electorlytes, cbc, CXR DC ivf due to worsening anasarca, chf add albumin initiate [id number] Plts up to 140 Peptamen @ 20 ml/hr replace K Nutritional Asmnt/Malnutr-PDOC - Dietary Evaluation Malnutrition Findings (Please click <Entered> for more info): Nutritional Asmnt/Malnutrition Start: 02/21/17 18: 20 Text: Status: Complete Freq: Document 02/21/17 18:21 LCHENG (Rec: 02/21/17 18:32 LCHENG [id number]) Nutritional Asmnt/Malnutrition Patient General Information Nutritional Screening High Risk Consult Diagnosis gastric outlet obstruction Pertinent Medical Hx/Surgical Hx HTN, OA, DM, GERD Subjective Information Pt seen sleeping at the time of visit, attempted x 2. Spoke with RN, pt consumed 50% of breakfast and only the soup of lunch today, not much appetite, no complain of N/V. Pt will be NPO from midnight for GI exam tommorrow. Current Diet Order/ Nutrition Support no added salt 4gm, CCHO, no eggs, banana and cereal in morning Pertinent Medications colace, lasix, novolog, levaquin, piperacillin Pertinent Labs 02/20 Na 137, K 4.5, Cl 104, BUN 55, Cr 1.6, Glucose 137, POC 126-199 since admit, Ca 8. 3 Nutritional Hx/Data Height 1.57 m Height (Calculated Centimeters) 157.5 Current Weight (lbs) 97.023 kg Weight (Calculated Kilograms) 97.0 Weight (Calculated Grams) 26147.4 [place] Body Weight 110 % [place] Body Weight 194 Body Mass Index (BMI) 39.1 Weight Status Obese GI Symptoms GI Symptoms None Last BM none Difficult in: None Skin Integrity/Comment: multiple maceration, abrasion to right/left medial thigh Current %PO Poor (25-49%) Estimated Nutritional Goals BEE in Kcals: Adj wt of IBW Calories/Kcals/Kg 27-32 Kcals Calculated Protein: Adj wt of IBW Protein g/k-1.2 Protein Calculated 62-74 Fluid: ml Nutritional Problem 1. Problem Problem inadequate PO intake Etiology poor appetite Signs/Symptoms: PO intake 25-50% Malnutrition Alert Protein-Calorie Malnutrition N/A Is there a minimum of two criteria No selected? Query Text:Check all the applicable criteria. A minimum of two criteria are recommended for diagnosis of either severe or non-severe malnutrition. Intervention/Recommendation Comments 1. Continue with current diet as ordered. 2. Monitor PO intake, GI symptons, wt, labs and skin integrity 3. F/U as high risk in 2-3 days, 02/23-02/24 Expected Outcomes/Goals Expected Outcomes/Goals 1. PO intake to meet at least 75% of nutritional needs. 2. Wt stability, skin to remain intact, labs to improve
[2017-03-17] MEDS: Furosemide 40 mg/4mL UDC PO SCH (16:49)
[2017-03-17] MEDS ORDERED: Furosemide 40 mg/4mL UDC PO SCH (17:00)
--- NOTE | 2017-03-17 23:53 | Infectious Disease Prog Note ---
Infectious Disease Subjective - Review of Systems Service Date: 03/17/17 Events since last encounter: g tube placed today. Subjective: Remains on vent intubated orally. on the ventilator support. Infectious Disease Objective - Results Result Diagrams: 03/17/17 06:35 03/17/17 06:35 Recent Labs: Laboratory Last Values WBC 14.1 Th/cmm (4.8-10.8) H 03/17/17 06:35 RBC 3.31 Mil/cmm (3.80-5.20) L 03/17/17 06:35 Hgb 9.6 gm/dL (12-16) L 03/17/17 06:35 Hct 28.9 % (41.0-60) L 03/17/17 06:35 MCV 87.5 fl (81-100) 03/17/17 06:35 MCH 29.1 pg (27.0-31.0) 03/17/17 06:35 MCHC Differential 33.3 pg (28.0-36.0) 03/17/17 06:35 RDW 16.5 % (11.5-20.0) 03/17/17 06:35 Plt Count 140 Th/cmm (150-400) L 03/17/17 06:35 MPV 8.0 fl 03/17/17 06:35 Neutrophils % IRONWORKER MACHINE OPERATOR 03/17/17 06:35 Band Neutrophils % 9 % (0-10) 03/17/17 06:35 Lymphocytes % IRONWORKER MACHINE OPERATOR 03/17/17 06:35 Monocytes % IRONWORKER MACHINE OPERATOR 03/17/17 06:35 Eosinophils % IRONWORKER MACHINE OPERATOR 03/17/17 06:35 Basophils % IRONWORKER MACHINE OPERATOR 03/17/17 06:35 Neutrophils (Manual) 81 % (40-80) H 03/17/17 06:35 Lymphocytes 5 % (20-50) L 03/17/17 06:35 Monocytes 2 % (2-10) 03/17/17 06:35 Eosinophils 3 % (0-5) 03/17/17 06:35 Metamyelocytes 1 % (0-0) H 02/18/17 23:35 Hypochromia 1+ 02/18/17 23:35 Platelet Estimate SLIGHT DECREASED (NORMAL) 03/17/17 06:35 Platelet Morphology (NORMAL) 03/04/17 08:00 Plt Count 140 Th/cmm (150-750) L 03/17/17 06:35 PT 13.5 SECONDS (9.5-11.5) H 03/17/17 06:35 INR 1.28 (0.5-1.4) 03/17/17 06:35 PTT (Actin FS) 35.0 SECONDS (26.0-38.0) 03/17/17 06:35 Fibrinogen 367.0 mg/dL (200.0-400.0) 03/17/17 06:35 D-Dimer 3520 ng/mL (100-400) H 03/17/17 06:35 Specimen Source Arterial 03/11/17 09:40 Sample Site Right Radial 03/11/17 09:40 pH 7.29 (7.35-7.45) L 03/11/17 09:40 pCO2 44.0 mmHg (35.0-45.0) 03/11/17 09:40 pO2 66.0 mmHg (80.0-100.0) L 03/11/17 09:40 HCO3 20.6 mEq/L (20.0-26.0) 03/11/17 09:40 Base Excess -5.3 mEq/L (-3.0-3.0) L 03/11/17 09:40 O2 Saturation 90.0 % (92.0-100.0) L 03/11/17 09:40 Jorje Test YES 03/11/17 09:40 Vent Rate 4 03/11/17 09:40 Inspired O2 30 03/11/17 09:40 Tidal Volume 550 03/11/17 09:40 PEEP 5 03/11/17 09:40 Pressure (ins/psv/peep) 15 03/11/17 09:40 Critical Value E.HERNANDEZ 03/11/17 09:40 Sodium 139 mEq/L (136-145) 03/17/17 06:35 Potassium 3.2 mEq/L (3.5-5.1) L 03/17/17 06:35 Chloride 108 mEq/L (98-107) H 03/17/17 06:35 Carbon Dioxide 21.0 mEq/L (21.0-31.0) 03/17/17 06:35 Anion Gap 13.2 (7.0-16.0) 03/17/17 06:35 BUN 45 mg/dL (7-25) H 03/17/17 06:35 Creatinine 1.6 mg/dL (0.6-1.2) H 03/17/17 06:35 Est GFR ( Amer) 41.1 ml/min (>90) 03/17/17 06:35 Est GFR (Non-Af Amer) 34.0 ml/min 03/17/17 06:35 BUN/Creatinine Ratio 28.1 03/17/17 06:35 Glucose 174 mg/dL (70-105) H 03/17/17 06:35 POC Glucose 166 MG/DL (70 - 105) H 03/17/17 23:39 Hemoglobin A1c % 5.8 % (4.0-6.0) 02/22/17 10:38 Whole Bld Lactic Acid 2.40 mmol/L (0.60-1.99) H* 02/27/17 15:04 Calcium 8.2 mg/dL (8.6-10.3) L 03/17/17 06:35 Phosphorus 2.5 mg/dL (2.5-5.0) 03/01/17 09:15 Magnesium 2.1 mg/dL (1.9-2.7) 03/01/17 09:15 Total Bilirubin 0.5 mg/dL (0.3-1.0) 03/11/17 08:15 Direct Bilirubin 0.09 mg/dL (0.0-0.2) 02/18/17 23:35 AST 19 U/L (13-39) 03/11/17 08:15 ALT 5 U/L (7-52) L 03/11/17 08:15 Alkaline Phosphatase 69 U/L (34-104) 03/11/17 08:15 Ammonia 38 umol/L (16-53) 03/01/17 17:28 B-Natriuretic Peptide 158.0 pg/mL (5.0-100.0) H 03/04/17 15:39 Total Protein 5.2 gm/dL (6.0-8.3) L 03/11/17 08:15 Albumin 2.9 gm/dL (3.7-5.3) L 03/11/17 08:15 Globulin 2.3 gm/dL 03/11/17 08:15 Albumin/Globulin Ratio 1.3 (1.0-1.8) 01/12/18 08:15 Amylase 36 U/L (29-103) 02/18/17 23:35 Lipase 10 U/L (11-82) L 02/18/17 23:35 Vitamin B12 860 pg/mL (232-1245) 02/26/17 04:45 Free T4 1.04 ng/dL (0.82-1.77) 02/25/17 04:50 Free T3 0.7 pg/mL (2.0-4.4) L 02/25/17 04:50 TSH 0.84 uIU/ml (0.34-5.60) 02/25/17 04:50 Total Cortisol 12.3 02/24/17 07:50 Urine Source [place] 02/27/17 15:00 Urine Color YELLOW 02/27/17 15:00 Urine Clarity CLOUDY (CLEAR) H 02/27/17 15:00 Urine pH 5.5 (4.6 - 8.0) 02/27/17 15:00 Ur Specific [place] <= 1.005 (1.005-1.030) 02/27/17 15:00 Urine Protein TRACE mg/dL (NEGATIVE) 02/27/17 15:00 Urine Glucose (UA) NEGATIVE mg/dL (NEGATIVE) 02/27/17 15:00 Urine Ketones NEGATIVE mg/dL (NEGATIVE) 02/27/17 15:00 Urine Blood LARGE (NEGATIVE) H 02/27/17 15:00 Urine Nitrate NEGATIVE (NEGATIVE) 02/27/17 15:00 Urine Bilirubin NEGATIVE (NEGATIVE) 02/27/17 15:00 Urine Urobilinogen 0.2 E.U./dL (0.2 - 1.0) 02/27/17 15:00 Ur Leukocyte Esterase LARGE (NEGATIVE) H 02/27/17 15:00 Urine RBC 10-25 /hpf (0-5) H 02/27/17 15:00 Urine WBC >100 /hpf (0-5) H 02/27/17 15:00 Ur Epithelial Cells MODERATE /lpf (FEW) 02/27/17 15:00 Urine Bacteria MODERATE /hpf (NONE SEEN) H 02/27/17 15:00 Urine Yeast MODERATE /hpf (NONE SEEN) H 02/20/17 16:15 Stool Occult Blood NEGATIVE (NEGATIVE) 03/11/17 17:25 Blood Type A POSITIVE 03/13/17 09:15 Antibody Screen NEGATIVE 03/13/17 09:15 Crossmatch See Detail 03/13/17 09:15 - Physical Exam Vitals and I&O: Vital Signs Temp 98.2 F 03/17/17 20:00 Pulse 102 03/17/17 23:02 Resp 21 03/17/17 21:00 BP 106/55 03/17/17 21:00 Pulse Ox 98 03/17/17 23:02 Intake & Output 03/17/17 03/17/17 03/18/17 06:59 18:59 06:59 Intake Total 284 192.667 Output Total 750 450 Balance -466 -257.333 Weight (lbs) 119.748 kg 119.55 kg Intake: Intake, IV Amount 164 12.667 Dextrose 5% 1,000 ml @ 30 164 mls/hr IV .Q24H [facility] Rx#: [id number] Furosemide 100 mg In 12.667 Sodium Chloride 0.9% 40 ml @ 2.5 mls/hr IV TITR [facility] Rx#:[id number] Tube Feeding 120 30 Other 150 Output: Urine 750 450 Other: # Bowel Movements 1 1 Stool Characteristics Soft Soft Soft Liquid Liquid Liquid Green Green Green Active Medications: Current Medications Acetaminophen (Tylenol) 650 mg PO Q4HR PRN PRN Reason: Pain (Mild) Stop: 04/20/17 12:01 Last Admin: 03/06/17 03:23 Dose: 650 mg Albuterol/Ipratropium (Duoneb Neb) 3 ml HHN Q4HRT PRN PRN Reason: Wheezing Stop: 04/27/17 19:59 Last Admin: 02/28/17 03:18 Dose: 3 ml Albuterol/Ipratropium (Duoneb Neb) 3 ml HHN [id number] [facility] Stop: 04/27/17 19:59 Last Admin: 03/17/17 19:11 Dose: 3 ml Chlorhexidine Gluconate (Peridex) 15 ml MM 0800,2000 [facility] Stop: 04/28/17 19:59 Last Admin: 03/17/17 20:38 Dose: 15 ml Diltiazem HCl (Cardizem) 5 mg IVP Q4H PRN PRN Reason: HR > 120 Stop: 04/27/17 19:59 Last Admin: 02/27/17 04:59 Dose: 5 mg Docusate Sodium (Colace) 100 mg PO BID [facility] Stop: 04/20/17 16:59 Last Admin: 03/17/17 16:48 Dose: 100 mg Furosemide (Lasix) 20 mg PO BID [facility] Stop: 05/16/17 16:59 Last Admin: 03/17/17 16:49 Dose: 20 mg Hydromorphone HCl (Dilaudid) 1 mg IVP Q4HR PRN PRN Reason: Severe Pain Stop: 05/13/17 13:01 Last Admin: 03/16/17 08:36 Dose: 1 mg Phenylephrine HCl 10 mg/ (Sodium Chloride) 250 mls @ 0 mls/hr IV TITR [facility]; Per Protocol PRN Reason: Protocol Stop: 04/28/17 07:59 Norepinephrine Bitartrate 8 mg (/ Sodium Chloride) 258 mls @ 0 mls/hr IV TITR [facility]; Per Protocol PRN Reason: Protocol Stop: 04/28/17 09:59 Last Titration: 03/15/17 07:26 Dose: 0 mcg/min, 0 mls/hr Insulin Aspart (Novolog Insulin Sliding Scale) 0 units SUBQ Q6H [facility] PRN Reason: Protocol Stop: 05/03/17 00:00 Last Admin: 03/17/17 23:51 Dose: 2 units Metoclopramide HCl (Reglan) 5 mg IVP Q6HR [facility] Stop: 05/05/17 17:59 Last Admin: 03/17/17 23:49 Dose: 5 mg Metolazone (Zaroxolyn) 5 mg PO DAILY [facility] Stop: 05/10/17 13:14 Last Admin: 03/17/17 08:44 Dose: Not Given Mirtazapine (Remeron) 15 mg PO HS [facility] PRN Reason: Protocol Stop: 04/26/17 20:59 Last Admin: 03/17/17 20:37 Dose: 15 mg Miscellaneous (Probiotic Screen) 1 ea PRN PRN PRN Reason: PROTOCOL Stop: 04/21/17 16:25 Miscellaneous (Communication Order) 1 ea PRN [facility] Stop: 05/10/17 13:14 Morphine Sulfate (Morphine) 1 mg IVP Q4HR PRN PRN Reason: Severe Pain Stop: 05/04/17 14:13 Last Admin: 03/17/17 05:59 Dose: 1 mg Nitroglycerin (Nitrostat) 0.4 mg SL Q5MIN PRN PRN Reason: Chest Pain Stop: 04/20/17 12:01 Nystatin (Nystop) 100,000 units TP BID PRN PRN Reason: SKIN EXCORIATIONS Stop: 04/21/17 15:35 Last Admin: 03/08/17 06:00 Dose: 100,000 units Ondansetron HCl (Zofran) 4 mg IV Q6H PRN PRN Reason: Nausea Stop: 04/20/17 03:38 Pantoprazole Sodium (Protonix) 40 mg PO DAILY [facility] Stop: 05/13/17 14:14 Last Admin: 03/17/17 09:42 Dose: 40 mg Potassium Chloride (Klor-Con) 20 meq PO BID [facility] Stop: 05/15/17 16:59 Last Admin: 03/17/17 16:50 Dose: 20 meq General: no acute distress, well developed, cachectic HEENT: atraumatic, normocephalic, PERRLA Neck: supple, no thyromegaly Cardiovascular: S1S2, regular Lungs: clear to auscultation bilaterally, clear to percussion Abdomen: soft, no tender, no distended Extremities: no cyanosis, no clubbing, no edema Neurological: awake, alert - Procedures Procedures: Procedures Procedure Code Date BYPASS TRACHEA TO CUTANEOUS WITH TRACH DEV, OPEN APPROACH [id number] 02/19/17 INCISION OF WINDPIPE 09194 02/19/17 INSERT EMERGENCY AIRWAY 64029 02/19/17 INSERTION OF ENDOTRACHEAL AIRWAY INTO TRACHEA, VIA OPENING [id number] 02/19/17 RESPIRATORY VENTILATION, GREATER THAN 96 CONSECUTIVE HOURS [id number] 02/19/17 VENT MGMT INPAT INIT DAY 29841 02/19/17 VENT MGMT INPAT SUBQ DAY 44059 02/19/17 Infectious Disease Assmt/Plan - Problem List Patient Problems: All Active Problems Acute kidney failure (Acute) 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 Sepsis. treated. mild leukocytosis, monitor. 2. Pneumonia. 3. UTI, Candiduria. 4. Renal failure. 5. Hypotension, improving 6. VDRF. 7. Thrombocytopenia. DIC. improved. - Plan Plan: off antibiotics. Nutritional Asmnt/Malnutr-PDOC - Dietary Evaluation Malnutrition Findings (Please click <Entered> for more info): Nutritional Asmnt/Malnutrition Start: 02/21/17 18: 20 Text: Status: Complete Freq: Document 02/21/17 18:21 LCANCELMO (Rec: 02/21/17 18:32 [email or web address] Nutritional Asmnt/Malnutrition Patient General Information Nutritional Screening High Risk Consult Diagnosis gastric outlet obstruction Pertinent Medical Hx/Surgical Hx HTN, OA, DM, GERD Subjective Information Pt seen sleeping at the time of visit, attempted x 2. Spoke with RN, pt consumed 50% of breakfast and only the soup of lunch today, not much appetite, no complain of N/V. Pt will be NPO from midnight for GI exam tommorrow. Current Diet Order/ Nutrition Support no added salt 4gm, CCHO, no eggs, banana and cereal in morning Pertinent Medications colace, lasix, novolog, levaquin, piperacillin Pertinent Labs 02/20 Na 137, K 4.5, Cl 104, BUN 55, Cr 1.6, Glucose 137, POC 126-199 since admit, Ca 8. 3 Nutritional Hx/Data Height 1.57 m Height (Calculated Centimeters) 157.5 Current Weight (lbs) 97.023 kg Weight (Calculated Kilograms) 97.0 Weight (Calculated Grams) 57071.4 Allen Body Weight 110 % Allen Body Weight 194 Body Mass Index (BMI) 39.1 Weight Status Obese GI Symptoms GI Symptoms None Last BM none Difficult in: None Skin Integrity/Comment: multiple maceration, abrasion to right/left medial thigh Current %PO Poor (25-49%) Estimated Nutritional Goals BEE in Kcals: Adj wt of IBW Calories/Kcals/Kg 27-32 Kcals Calculated Protein: Adj wt of IBW Protein g/k-1.2 Protein Calculated 62-74 Fluid: ml [id number] Nutritional Problem 1. Problem Problem inadequate PO intake Etiology poor appetite Signs/Symptoms: PO intake 25-50% Malnutrition Alert Protein-Calorie Malnutrition N/A Is there a minimum of two criteria No selected? Query Text:Check all the applicable criteria. A minimum of two criteria are recommended for diagnosis of either severe or non-severe malnutrition. Intervention/Recommendation Comments 1. Continue with current diet as ordered. 2. Monitor PO intake, GI symptons, wt, labs and skin integrity 3. F/U as high risk in 2-3 days, 02/23-02/24 Expected Outcomes/Goals Expected Outcomes/Goals 1. PO intake to meet at least 75% of nutritional needs. 2. Wt stability, skin to remain intact, labs to improve
[2017-03-18] MEDS: Morphine Sulfate 2 mg/mL 1mL Syr IVP PRN (05:25)
[2017-03-18] MEDS ORDERED: Metoclopramide 5 mg/mL 2mL Vial ONE (05:42)
[2017-03-18] MEDS: Metoclopramide 5 mg/mL 2mL Vial IVP SCH ×3 (05:48→17:17)
[2017-03-18] MEDS: INSULIN ASPART SLIDING SCALE 100 UNITS/ML UNIT SUBQ SCH ×3 (06:04→17:27)
[2017-03-18 07:16] LABS: EOSINOPHILE ABSOLUTE 0.1 Th/cmm (0.1-0.4); HEMATOCRIT 29.5 % (41.0-60); LYMPHOCYTE ABSOLUTE 1.6 Th/cmm (1.5-3.0); MEAN CELL VOLUME 89.3 fl (81-100); MEAN CORPUSCULAR HEMOGLOBIN 30.5 pg (27.0-31.0); MEAN CORPUSCULAR HGB CONC 34.1 pg (28.0-36.0); MEAN PLATELET VOLUME 8.9 fl; MONOCYTE ABSOLUTE 0.6 Th/cmm (0.3-1.0); NEUTROPHILE ABSOLUTE 20.3 Th/cmm (1.8-8.0); PLATELET COUNT 175 Th/cmm (150-400); RED CELL DISTRIBUTION WIDTH 17.5 % (11.5-20.0)
[2017-03-18] MEDS: Albuterol/Ipratropium Neb 3 ML AERS HHN SCH ×3 (07:22→19:15)
[2017-03-18 07:23] LABS: WHITE BLOOD COUNT 22.6 Th/cmm (4.8-10.8)
[2017-03-18 07:27] LABS: INR 1.39 (0.5-1.4); PROTHROMBIN TIME (TEST) 14.7 SECONDS (9.5-11.5)
[2017-03-18 07:30] LABS: ANION GAP 13.7 (7.0-16.0); CALCIUM SERUM 8.5 mg/dL (8.6-10.3); CARBON DIOXIDE 20.1 mEq/L (21.0-31.0); CREATININE - SERUM 1.8 mg/dL (0.6-1.2); GFR AFRICAN-AMERICAN 35.9 ml/min (>90); GFR NON AFRICAN-AMERICAN 29.7 ml/min; POTASSIUM SERUM 3.8 mEq/L (3.5-5.1)
[2017-03-18 07:51] LABS: TOTAL CELLS COUNTED 100
[2017-03-18 07:52] LABS: BAND NEUTROPHILE 9 % (0-10); LYMPHOCYTE 6 % (20-50); MONOCYTE 1 % (2-10); NEUTROPHILS 84 % (40-80)
[2017-03-18] MEDS: Chlorhexidine Gluconate 0.12% 15mL Mouthwash MM SCH ×2 (08:45→19:04)
--- NOTE | 2017-03-18 09:48 | GI Progress Note ---
Subjective - Review of Systems Service Date: 03/18/17 Subjective: G tube placed 03/17, pt now with leukocytosis. Objective - Results Result Diagrams: 03/18/17 06:45 03/18/17 06:45 Recent Labs: Laboratory Last Values WBC 22.6 Th/cmm (4.8-10.8) H* 03/18/17 06:45 RBC 3.30 Mil/cmm (3.80-5.20) L 03/18/17 06:45 Hgb 10.0 gm/dL (12-16) L 03/18/17 06:45 Hct 29.5 % (41.0-60) L 03/18/17 06:45 MCV 89.3 fl (81-100) 03/18/17 06:45 MCH 30.5 pg (27.0-31.0) 03/18/17 06:45 MCHC Differential 34.1 pg (28.0-36.0) 03/18/17 06:45 RDW 17.5 % (11.5-20.0) 03/18/17 06:45 Plt Count 175 Th/cmm (150-400) D 03/18/17 06:45 MPV 8.9 fl 03/18/17 06:45 Neutrophils % [employer]BILE HEALTH VEHICLE OPERATOR 03/17/17 06:35 Band Neutrophils % 9 % (0-10) 03/18/17 06:45 Lymphocytes % MOBILE HEALTH VEHICLE OPERATOR 03/17/17 06:35 Monocytes % MOBILE HEALTH VEHICLE OPERATOR 03/17/17 06:35 Eosinophils % MOBILE HEALTH VEHICLE OPERATOR 03/17/17 06:35 Basophils % MOBILE HEALTH VEHICLE OPERATOR 03/17/17 06:35 Neutrophils (Manual) 84 % (40-80) H 03/18/17 06:45 Lymphocytes 6 % (20-50) L 03/18/17 06:45 Monocytes 1 % (2-10) L 03/18/17 06:45 Eosinophils 3 % (0-5) 03/17/17 06:35 Metamyelocytes 1 % (0-0) H 02/18/17 23:35 Hypochromia 1+ 02/18/17 23:35 Platelet Estimate SLIGHT DECREASED (NORMAL) 03/17/17 06:35 Platelet Morphology (NORMAL) 03/04/17 08:00 Plt Count 175 Th/cmm (150-750) 03/18/17 06:45 PT 14.7 SECONDS (9.5-11.5) H 03/18/17 06:45 INR 1.39 (0.5-1.4) 03/18/17 06:45 PTT (Actin FS) 36.2 SECONDS (26.0-38.0) 03/18/17 06:45 Fibrinogen 500.0 mg/dL (200.0-400.0) H 03/18/17 06:45 D-Dimer 2700 ng/mL (100-400) H 03/18/17 06:45 Specimen Source Arterial 03/11/17 09:40 Sample Site Right Radial 03/11/17 09:40 pH 7.29 (7.35-7.45) L 03/11/17 09:40 pCO2 44.0 mmHg (35.0-45.0) 03/11/17 09:40 pO2 66.0 mmHg (80.0-100.0) L 03/11/17 09:40 HCO3 20.6 mEq/L (20.0-26.0) 03/11/17 09:40 Base Excess -5.3 mEq/L (-3.0-3.0) L 03/11/17 09:40 O2 Saturation 90.0 % (92.0-100.0) L 03/11/17 09:40 Jorje Test YES 03/11/17 09:40 Vent Rate 4 03/11/17 09:40 Inspired O2 30 03/11/17 09:40 Tidal Volume 550 03/11/17 09:40 PEEP 5 03/11/17 09:40 Pressure (ins/psv/peep) 15 03/11/17 09:40 Critical Value E.HERNANDEZ 03/11/17 09:40 Sodium 137 mEq/L (136-145) 03/18/17 06:45 Potassium 3.8 mEq/L (3.5-5.1) 03/18/17 06:45 Chloride 107 mEq/L (98-107) 03/18/17 06:45 Carbon Dioxide 20.1 mEq/L (21.0-31.0) L 03/18/17 06:45 Anion Gap 13.7 (7.0-16.0) 03/18/17 06:45 BUN 47 mg/dL (7-25) H 03/18/17 06:45 Creatinine 1.8 mg/dL (0.6-1.2) H 03/18/17 06:45 Est GFR ( Amer) 35.9 ml/min (>90) 03/18/17 06:45 Est GFR (Non-Af Amer) 29.7 ml/min 03/18/17 06:45 BUN/Creatinine Ratio 26.1 03/18/17 06:45 Glucose 217 mg/dL (70-105) H 03/18/17 06:45 POC Glucose 166 MG/DL (70 - 105) H 03/17/17 23:39 Hemoglobin A1c % 5.8 % (4.0-6.0) 02/22/17 10:38 Whole Bld Lactic Acid 2.40 mmol/L (0.60-1.99) H* 02/27/17 15:04 Calcium 8.5 mg/dL (8.6-10.3) L 03/18/17 06:45 Phosphorus 2.5 mg/dL (2.5-5.0) 03/01/17 09:15 Magnesium 2.1 mg/dL (1.9-2.7) 03/01/17 09:15 Total Bilirubin 0.5 mg/dL (0.3-1.0) 03/11/17 08:15 Direct Bilirubin 0.09 mg/dL (0.0-0.2) 02/18/17 23:35 AST 19 U/L (13-39) 03/11/17 08:15 ALT 5 U/L (7-52) L 03/11/17 08:15 Alkaline Phosphatase 69 U/L (34-104) 03/11/17 08:15 Ammonia 38 umol/L (16-53) 03/01/17 17:28 B-Natriuretic Peptide 158.0 pg/mL (5.0-100.0) H 03/04/17 15:39 Total Protein 5.2 gm/dL (6.0-8.3) L 03/11/17 08:15 Albumin 2.9 gm/dL (3.7-5.3) L 03/11/17 08:15 Globulin 2.3 gm/dL 03/11/17 08:15 Albumin/Globulin Ratio 1.3 (1.0-1.8) 03/11/17 08:15 Amylase 36 U/L (29-103) 02/18/17 23:35 Lipase 10 U/L (11-82) L 02/18/17 23:35 Vitamin B12 860 pg/mL (232-1245) 02/26/17 04:45 Free T4 1.04 ng/dL (0.82-1.77) 02/25/17 04:50 Free T3 0.7 pg/mL (2.0-4.4) L 02/25/17 04:50 TSH 0.84 uIU/ml (0.34-5.60) 02/25/17 04:50 Total Cortisol 12.3 02/24/17 07:50 Urine Source [place] 02/27/17 15:00 Urine Color YELLOW 02/27/17 15:00 Urine Clarity CLOUDY (CLEAR) H 02/27/17 15:00 Urine pH 5.5 (4.6 - 8.0) 02/27/17 15:00 Ur Specific [place] <= 1.005 (1.005-1.030) 02/27/17 15:00 Urine Protein TRACE mg/dL (NEGATIVE) 02/27/17 15:00 Urine Glucose (UA) NEGATIVE mg/dL (NEGATIVE) 02/27/17 15:00 Urine Ketones NEGATIVE mg/dL (NEGATIVE) 02/27/17 15:00 Urine Blood LARGE (NEGATIVE) H 02/27/17 15:00 Urine Nitrate NEGATIVE (NEGATIVE) 02/27/17 15:00 Urine Bilirubin NEGATIVE (NEGATIVE) 02/27/17 15:00 Urine Urobilinogen 0.2 E.U./dL (0.2 - 1.0) 02/27/17 15:00 Ur Leukocyte Esterase LARGE (NEGATIVE) H 02/27/17 15:00 Urine RBC 10-25 /hpf (0-5) H 02/27/17 15:00 Urine WBC >100 /hpf (0-5) H 02/27/17 15:00 Ur Epithelial Cells MODERATE /lpf (FEW) 02/27/17 15:00 Urine Bacteria MODERATE /hpf (NONE SEEN) H 02/27/17 15:00 Urine Yeast MODERATE /hpf (NONE SEEN) H 02/20/17 16:15 Stool Occult Blood NEGATIVE (NEGATIVE) 03/11/17 17:25 Blood Type A POSITIVE 03/13/17 09:15 Antibody Screen NEGATIVE 03/13/17 09:15 Crossmatch See Detail 03/13/17 09:15 - Physical Exam Vitals and I&O: Vital Signs Temp 97.8 F 03/18/17 04:00 Pulse 96 03/18/17 07:22 Resp 20 03/18/17 06:57 BP 88/54 03/18/17 06:57 Pulse Ox 96 03/18/17 07:22 Intake & Output 03/17/17 03/18/17 03/18/17 18:59 06:59 18:59 Intake Total 192.667 410 Output Total 450 225 Balance -257.333 185 Weight (lbs) 119.55 kg 118.161 kg Intake: Intake, IV Amount 12.667 Furosemide 100 mg In 12.667 Sodium Chloride 0.9% 40 ml @ 2.5 mls/hr IV TITR [facility] Rx#:[id number] Oral 0 Tube Feeding 30 360 Other 150 50 Output: Urine 450 225 Other: # Bowel Movements 1 1 Stool Characteristics Soft Soft Liquid Liquid Green Green Active Medications: Current Medications Acetaminophen (Tylenol) 650 mg PO Q4HR PRN PRN Reason: Pain (Mild) Stop: 04/20/17 12:01 Last Admin: 03/06/17 03:23 Dose: 650 mg Albuterol/Ipratropium (Duoneb Neb) 3 ml HHN Q4HRT PRN PRN Reason: Wheezing Stop: 04/27/17 19:59 Last Admin: 02/28/17 03:18 Dose: 3 ml Albuterol/Ipratropium (Duoneb Neb) 3 ml HHN [id number] [facility] Stop: 04/27/17 19:59 Last Admin: 03/18/17 07:22 Dose: 3 ml Chlorhexidine Gluconate (Peridex) 15 ml MM 0800,1999 [facility] Stop: 04/28/17 19:59 Last Admin: 03/17/17 20:38 Dose: 15 ml Diltiazem HCl (Cardizem) 5 mg IVP Q4H PRN PRN Reason: HR > 120 Stop: 04/27/17 19:59 Last Admin: 02/27/17 04:59 Dose: 5 mg Docusate Sodium (Colace) 100 mg PO BID [facility] Stop: 04/20/17 16:59 Last Admin: 03/17/17 16:48 Dose: 100 mg Furosemide (Lasix) 20 mg PO BID [facility] Stop: 05/16/17 16:59 Last Admin: 03/17/17 16:49 Dose: 20 mg Hydromorphone HCl (Dilaudid) 1 mg IVP Q4HR PRN PRN Reason: Severe Pain Stop: 05/13/17 13:01 Last Admin: 03/16/17 08:36 Dose: 1 mg Phenylephrine HCl 10 mg/ (Sodium Chloride) 250 mls @ 0 mls/hr IV TITR [facility]; Per Protocol PRN Reason: Protocol Stop: 04/28/17 07:59 Norepinephrine Bitartrate 8 mg (/ Sodium Chloride) 258 mls @ 0 mls/hr IV TITR [facility]; Per Protocol PRN Reason: Protocol Stop: 04/28/17 09:59 Last Titration: 03/15/17 07:26 Dose: 0 mcg/min, 0 mls/hr Piperacillin Sod/Tazobactam (Sod 3.375 gm/ Sodium Chloride) 50 mls @ 100 mls/ hr IV Q8HR [facility] Stop: 05/17/17 12:59 Insulin Aspart (Novolog Insulin Sliding Scale) 0 units SUBQ Q6H [facility] PRN Reason: Protocol Stop: 05/03/17 00:00 Last Admin: 03/18/17 06:04 Dose: 4 units Metoclopramide HCl (Reglan) 5 mg IVP Q6HR [facility] Stop: 05/05/17 17:59 Last Admin: 03/18/17 05:48 Dose: 5 mg Metolazone (Zaroxolyn) 5 mg PO DAILY [facility] Stop: 05/10/17 13:14 Last Admin: 03/17/17 08:44 Dose: Not Given Mirtazapine (Remeron) 15 mg PO HS [facility] PRN Reason: Protocol Stop: 04/26/17 20:59 Last Admin: 03/17/17 20:37 Dose: 15 mg Miscellaneous (Probiotic Screen) 1 ea PRN PRN PRN Reason: PROTOCOL Stop: 04/21/17 16:25 Miscellaneous (Communication Order) 1 ea MC PRN [facility] Stop: 05/10/17 13:14 Morphine Sulfate (Morphine) 1 mg IVP Q4HR PRN PRN Reason: Severe Pain Stop: 05/04/17 14:13 Last Admin: 03/18/17 05:25 Dose: 1 mg Nitroglycerin (Nitrostat) 0.4 mg SL Q5MIN PRN PRN Reason: Chest Pain Stop: 04/20/17 12:01 Nystatin (Nystop) 100,000 units TP BID PRN PRN Reason: SKIN EXCORIATIONS Stop: 04/21/17 15:35 Last Admin: 03/08/17 06:00 Dose: 100,000 units Ondansetron HCl (Zofran) 4 mg IV Q6H PRN PRN Reason: Nausea Stop: 04/20/17 03:38 Pantoprazole Sodium (Protonix) 40 mg PO DAILY [facility] Stop: 05/13/17 14:14 Last Admin: 03/17/17 09:42 Dose: 40 mg Potassium Chloride (Klor-Con) 20 meq PO BID [facility] Stop: 05/15/17 16:59 Last Admin: 03/17/17 16:50 Dose: 20 meq General: Alert HEENT: Atraumatic (on trach/VENT), EOMI Neck: Supple Cardiovascular: Regular rate Lungs: Other (coarse rhonchi) Abdomen: Bowel sounds, Soft, Other (G tube site c/d/i, no guard or rebound) Extremities: Edema, Other ((+3) bipedal edema, decrease right UE edema) Skin: no Rash Psych/Mental Status: Mood NL - Procedures Procedures: Procedures Procedure Code Date BYPASS TRACHEA TO CUTANEOUS WITH TRACH DEV, OPEN APPROACH [id number] 02/19/17 INCISION OF [place] 46263 02/19/17 INSERT EMERGENCY AIRWAY [id number] 02/19/17 INSERTION OF ENDOTRACHEAL AIRWAY INTO TRACHEA, VIA OPENING [id number] 02/19/17 RESPIRATORY VENTILATION, GREATER THAN 96 CONSECUTIVE HOURS [id number] 02/19/17 VENT MGMT INPAT INIT DAY 30236 02/19/17 VENT MGMT INPAT SUBQ DAY 19955 02/19/17 Assessment/Plan - Problem List Patient Problems: All Active Problems Acute kidney failure (Acute) 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 Azotemia (Acute) R79.89 Bradycardia (Acute) R00.1 COPD (chronic obstructive pulmonary disease) (Acute) Cardiomegaly (Acute) I51.7 Chest pain (Acute) R07.9 Decubitus ulcer of buttock, 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 - Assessment Assessment: 71 YO FEMALE WITH ALLEGED GASTRIC OUTLET OBSTRUCTION EGD this admission SHOWED GASTRITIS WITHOUT OBSTRUCTION SBFT NEG # Leukocytosis # Dysphagia G tube placed 03/17, ancef given prior to procedure. Leukocytosis may be related to G tube insertion, although pt did get ancef prior to the procedure. Cultures , CXR are being done now. 1.Cont G tube feeding. Hold for residual > 150cc. Flush with 100cc water every 6 hours 2.CONT SUPP CARE 3. Agree with infectious workup
[2017-03-18] MEDS: Multivitamin w/ Minerals Tab PO SCH (09:54)
[2017-03-18] MEDS: Pantoprazole 40 mg/Packet PO SCH (09:54)
[2017-03-18] MEDS: Potassium Chloride 20 mEq ER Tab PO SCH ×2 (09:54→17:17)
[2017-03-18] MEDS: Furosemide 40 mg/4mL UDC PO SCH ×2 (09:54→17:15)
[2017-03-18] MEDS: Metolazone 5 MG TAB PO SCH (09:54)
[2017-03-18 09:56] LABS: URINE MICROSCOPIC INDICATED? YES; URINE SOURCE CATH
[2017-03-18 10:01] LABS: URINE BILIRUBIN MODERATE (NEGATIVE); URINE BLOOD SMALL (NEGATIVE); URINE GLUCOSE (UA) NEGATIVE (NEGATIVE); URINE KETONE TRACE mg/dL (NEGATIVE); URINE LEUKOCYTE ESTERASE MODERATE (NEGATIVE); URINE NITRATE NEGATIVE (NEGATIVE); URINE PH 5.5 (4.6 - 8.0); URINE PROTEIN 30 mg/dL (NEGATIVE); URINE UROBILINOGEN 0.2 E.U./dL (0.2 - 1.0)
[2017-03-18 10:02] LABS: URINE CLARITY HAZY (CLEAR); URINE COLOR YELLOW
--- NOTE | 2017-03-18 10:06 | Infectious Disease Prog Note ---
Infectious Disease Subjective - Review of Systems Service Date: 03/18/17 Subjective: Remains on vent intubated orally. on the ventilator support. Infectious Disease Objective - Results Result Diagrams: 03/18/17 06:45 03/18/17 06:45 Recent Labs: Laboratory Last Values WBC 22.6 Th/cmm (4.8-10.8) H* 03/18/17 06:45 RBC 3.30 Mil/cmm (3.80-5.20) L 03/18/17 06:45 Hgb 10.0 gm/dL (12-16) L 03/18/17 06:45 Hct 29.5 % (41.0-60) L 03/18/17 06:45 MCV 89.3 fl (81-100) 03/18/17 06:45 MCH 30.5 pg (27.0-31.0) 03/18/17 06:45 MCHC Differential 34.1 pg (28.0-36.0) 03/18/17 06:45 RDW 17.5 % (11.5-20.0) 03/18/17 06:45 Plt Count 175 Th/cmm (150-400) D 03/18/17 06:45 MPV 8.9 fl 03/18/17 06:45 Neutrophils % [employer] 03/17/17 06:35 Band Neutrophils % 9 % (0-10) 03/18/17 06:45 Lymphocytes % [employer] 03/17/17 06:35 Monocytes % [employer] 03/17/17 06:35 Eosinophils % [employer] 03/17/17 06:35 Basophils % [employer] 03/17/17 06:35 Neutrophils (Manual) 84 % (40-80) H 03/18/17 06:45 Lymphocytes 6 % (20-50) L 03/18/17 06:45 Monocytes 1 % (2-10) L 03/18/17 06:45 Eosinophils 3 % (0-5) 03/17/17 06:35 Metamyelocytes 1 % (0-0) H 02/18/17 23:35 Hypochromia 1+ 02/18/17 23:35 Platelet Estimate SLIGHT DECREASED (NORMAL) 03/17/17 06:35 Platelet Morphology (NORMAL) 03/04/17 08:00 Plt Count 175 Th/cmm (150-750) 03/18/17 06:45 PT 14.7 SECONDS (9.5-11.5) H 03/18/17 06:45 INR 1.39 (0.5-1.4) 03/18/17 06:45 PTT (Actin FS) 36.2 SECONDS (26.0-38.0) 03/18/17 06:45 Fibrinogen 500.0 mg/dL (200.0-400.0) H 03/18/17 06:45 D-Dimer 2700 ng/mL (100-400) H 03/18/17 06:45 Specimen Source Arterial 03/11/17 09:40 Sample Site Right Radial 03/11/17 09:40 pH 7.29 (7.35-7.45) L 03/11/17 09:40 pCO2 44.0 mmHg (35.0-45.0) 03/11/17 09:40 pO2 66.0 mmHg (80.0-100.0) L 03/11/17 09:40 HCO3 20.6 mEq/L (20.0-26.0) 03/11/17 09:40 Base Excess -5.3 mEq/L (-3.0-3.0) L 03/11/17 09:40 O2 Saturation 90.0 % (92.0-100.0) L 03/11/17 09:40 Jorje Test YES 03/11/17 09:40 Vent Rate 4 03/11/17 09:40 Inspired O2 30 03/11/17 09:40 Tidal Volume 550 03/11/17 09:40 PEEP 5 03/11/17 09:40 Pressure (ins/psv/peep) 15 03/11/17 09:40 Critical Value E.HERNANDEZ 03/11/17 09:40 Sodium 137 mEq/L (136-145) 03/18/17 06:45 Potassium 3.8 mEq/L (3.5-5.1) 03/18/17 06:45 Chloride 107 mEq/L (98-107) 03/18/17 06:45 Carbon Dioxide 20.1 mEq/L (21.0-31.0) L 03/18/17 06:45 Anion Gap 13.7 (7.0-16.0) 03/18/17 06:45 BUN 47 mg/dL (7-25) H 03/18/17 06:45 Creatinine 1.8 mg/dL (0.6-1.2) H 03/18/17 06:45 Est GFR ( Amer) 35.9 ml/min (>90) 03/18/17 06:45 Est GFR (Non-Af Amer) 29.7 ml/min 03/18/17 06:45 BUN/Creatinine Ratio 26.1 03/18/17 06:45 Glucose 217 mg/dL (70-105) H 03/18/17 06:45 POC Glucose 166 MG/DL (70 - 105) H 03/17/17 23:39 Hemoglobin A1c % 5.8 % (4.0-6.0) 02/22/17 10:38 Whole Bld Lactic Acid 2.40 mmol/L (0.60-1.99) H* 02/27/17 15:04 Calcium 8.5 mg/dL (8.6-10.3) L 03/18/17 06:45 Phosphorus 2.5 mg/dL (2.5-5.0) 03/01/17 09:15 Magnesium 2.1 mg/dL (1.9-2.7) 03/01/17 09:15 Total Bilirubin 0.5 mg/dL (0.3-1.0) 03/11/17 08:15 Direct Bilirubin 0.09 mg/dL (0.0-0.2) 02/18/17 23:35 AST 19 U/L (13-39) 03/11/17 08:15 ALT 5 U/L (7-52) L 03/11/17 08:15 Alkaline Phosphatase 69 U/L (34-104) 03/11/17 08:15 Ammonia 38 umol/L (16-53) 03/01/17 17:28 B-Natriuretic Peptide 158.0 pg/mL (5.0-100.0) H 03/04/17 15:39 Total Protein 5.2 gm/dL (6.0-8.3) L 03/11/17 08:15 Albumin 2.9 gm/dL (3.7-5.3) L 03/11/17 08:15 Globulin 2.3 gm/dL 03/11/17 08:15 Albumin/Globulin Ratio 1.3 (1.0-1.8) 03/11/17 08:15 Amylase 36 U/L (29-103) 02/18/17 23:35 Lipase 10 U/L (11-82) L 02/18/17 23:35 Vitamin B12 860 pg/mL (232-1245) 02/26/17 04:45 Free T4 1.04 ng/dL (0.82-1.77) 02/25/17 04:50 Free T3 0.7 pg/mL (2.0-4.4) L 02/25/17 04:50 TSH 0.84 uIU/ml (0.34-5.60) 02/25/17 04:50 Total Cortisol 12.3 02/24/17 07:50 Urine Source [place] 02/27/17 15:00 Urine Color YELLOW 03/18/17 09:20 Urine Clarity HAZY (CLEAR) 03/18/17 09:20 Urine pH 5.5 (4.6 - 8.0) 03/18/17 09:20 Ur Specific [place] 1.015 (1.005-1.030) 03/18/17 09:20 Urine Protein 30 mg/dL (NEGATIVE) H 03/18/17 09:20 Urine Glucose (UA) NEGATIVE mg/dL (NEGATIVE) 03/18/17 09:20 Urine Ketones TRACE mg/dL (NEGATIVE) 03/18/17 09:20 Urine Blood SMALL (NEGATIVE) H 03/18/17 09:20 Urine Nitrate NEGATIVE (NEGATIVE) 03/18/17 09:20 Urine Bilirubin MODERATE (NEGATIVE) H 03/18/17 09:20 Urine Urobilinogen 0.2 E.U./dL (0.2 - 1.0) 03/18/17 09:20 Ur Leukocyte Esterase MODERATE (NEGATIVE) H 03/18/17 09:20 Urine RBC 10-25 /hpf (0-5) H 02/27/17 15:00 Urine WBC >100 /hpf (0-5) H 02/27/17 15:00 Ur Epithelial Cells MODERATE /lpf (FEW) 02/27/17 15:00 Urine Bacteria MODERATE /hpf (NONE SEEN) H 02/27/17 15:00 Urine Yeast MODERATE /hpf (NONE SEEN) H 02/20/17 16:15 Stool Occult Blood NEGATIVE (NEGATIVE) 03/11/17 17:25 Blood Type A POSITIVE 03/13/17 09:15 Antibody Screen NEGATIVE 03/13/17 09:15 Crossmatch See Detail 03/13/17 09:15 - Physical Exam Vitals and I&O: Vital Signs Temp 97.8 F 03/18/17 04:00 Pulse 96 03/18/17 07:22 Resp 20 03/18/17 06:57 BP 105/57 03/18/17 09:54 Pulse Ox 96 03/18/17 07:22 Intake & Output 03/17/17 03/18/17 03/18/17 18:59 06:59 18:59 Intake Total 192.667 410 Output Total 450 225 Balance -257.333 185 Weight (lbs) 119.55 kg 118.161 kg Intake: Intake, IV Amount 12.667 Furosemide 100 mg In 12.667 Sodium Chloride 0.9% 40 ml @ 2.5 mls/hr IV TITR [facility] Rx#:[id number] Oral 0 Tube Feeding 30 360 Other 150 50 Output: Urine 450 225 Other: # Bowel Movements 1 1 Stool Characteristics Soft Soft Liquid Liquid Green Green Active Medications: Current Medications Acetaminophen (Tylenol) 650 mg PO Q4HR PRN PRN Reason: Pain (Mild) Stop: 04/20/17 12:01 Last Admin: 03/06/17 03:23 Dose: 650 mg Albuterol/Ipratropium (Duoneb Neb) 3 ml HHN Q4HRT PRN PRN Reason: Wheezing Stop: 04/27/17 19:59 Last Admin: 02/28/17 03:18 Dose: 3 ml Albuterol/Ipratropium (Duoneb Neb) 3 ml HHN [id number] [facility] Stop: 04/27/17 19:59 Last Admin: 03/18/17 07:22 Dose: 3 ml Chlorhexidine Gluconate (Peridex) 15 ml MM 0800,2000 [facility] Stop: 04/28/17 19:59 Last Admin: 03/18/17 08:45 Dose: 15 ml Diltiazem HCl (Cardizem) 5 mg IVP Q4H PRN PRN Reason: HR > 120 Stop: 04/27/17 19:59 Last Admin: 02/27/17 04:59 Dose: 5 mg Docusate Sodium (Colace) 100 mg PO BID [facility] Stop: 04/20/17 16:59 Last Admin: 03/18/17 09:54 Dose: 100 mg Furosemide (Lasix) 20 mg PO BID [facility] Stop: 05/16/17 16:59 Last Admin: 03/18/17 09:54 Dose: 20 mg Hydromorphone HCl (Dilaudid) 1 mg IVP Q4HR PRN PRN Reason: Severe Pain Stop: 05/13/17 13:01 Last Admin: 03/16/17 08:36 Dose: 1 mg Phenylephrine HCl 10 mg/ (Sodium Chloride) 250 mls @ 0 mls/hr IV TITR [facility]; Per Protocol PRN Reason: Protocol Stop: 04/28/17 07:59 Norepinephrine Bitartrate 8 mg (/ Sodium Chloride) 258 mls @ 0 mls/hr IV TITR [facility]; Per Protocol PRN Reason: Protocol Stop: 04/28/17 09:59 Last Titration: 03/15/17 07:26 Dose: 0 mcg/min, 0 mls/hr Piperacillin Sod/Tazobactam (Sod 3.375 gm/ Sodium Chloride) 50 mls @ 100 mls/ hr IV Q8H [facility] Stop: 05/17/17 10:59 Insulin Aspart (Novolog Insulin Sliding Scale) 0 units SUBQ Q6H [facility] PRN Reason: Protocol Stop: 05/03/17 00:00 Last Admin: 03/18/17 06:04 Dose: 4 units Metoclopramide HCl (Reglan) 5 mg IVP Q6HR [facility] Stop: 05/05/17 17:59 Last Admin: 03/18/17 05:48 Dose: 5 mg Metolazone (Zaroxolyn) 5 mg PO DAILY [facility] Stop: 05/10/17 13:14 Last Admin: 03/18/17 09:54 Dose: 5 mg Mirtazapine (Remeron) 15 mg PO HS [facility] PRN Reason: Protocol Stop: 04/26/17 20:59 Last Admin: 03/17/17 20:37 Dose: 15 mg Miscellaneous (Probiotic Screen) 1 ea PRN PRN PRN Reason: PROTOCOL Stop: 04/21/17 16:25 Miscellaneous (Communication Order) 1 ea PRN [facility] Stop: 05/10/17 13:14 Morphine Sulfate (Morphine) 1 mg IVP Q4HR PRN PRN Reason: Severe Pain Stop: 05/04/17 14:13 Last Admin: 03/18/17 05:25 Dose: 1 mg Nitroglycerin (Nitrostat) 0.4 mg SL Q5MIN PRN PRN Reason: Chest Pain Stop: 04/20/17 12:01 Nystatin (Nystop) 100,000 units TP BID PRN PRN Reason: SKIN EXCORIATIONS Stop: 04/21/17 15:35 Last Admin: 03/08/17 06:00 Dose: 100,000 units Ondansetron HCl (Zofran) 4 mg IV Q6H PRN PRN Reason: Nausea Stop: 04/20/17 03:38 Pantoprazole Sodium (Protonix) 40 mg PO DAILY [facility] Stop: 05/13/17 14:14 Last Admin: 03/18/17 09:54 Dose: 40 mg Potassium Chloride (Klor-Con) 20 meq PO BID [facility] Stop: 05/15/17 16:59 Last Admin: 03/18/17 09:54 Dose: 20 meq General: no acute distress, well developed, well nourished HEENT: atraumatic, normocephalic, PERRLA Neck: supple, no thyromegaly Cardiovascular: S1S2, regular Lungs: clear to percussion, crackles Abdomen: soft, bowel sounds, no tender, no distended, no mass Extremities: no cyanosis, no clubbing, no edema Neurological: awake, alert Skin: intact - Procedures Procedures: Procedures Procedure Code Date BYPASS TRACHEA TO CUTANEOUS WITH TRACH DEV, OPEN APPROACH [id number] 02/19/17 INCISION OF [place] 46199 02/19/17 INSERT EMERGENCY AIRWAY 21066 02/19/17 INSERTION OF ENDOTRACHEAL AIRWAY INTO TRACHEA, VIA OPENING [id number] 02/19/17 RESPIRATORY VENTILATION, GREATER THAN 96 CONSECUTIVE HOURS [id number] 02/19/17 VENT MGMT INPAT INIT DAY 09374 02/19/17 VENT MGMT INPAT SUBQ DAY 38250 02/19/17 Infectious Disease Assmt/Plan - Problem List Patient Problems: All Active Problems Acute kidney failure (Acute) 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 leukocytosis r/o sepsis. 2. Pneumonia. 3. UTI, Candiduria. 4. Renal failure. 5. Hypotension, improving 6. VDRF. 7. Thrombocytopenia. DIC. improved. - Plan Plan: Start Zosyn. Nutritional Asmnt/Malnutr-PDOC - Dietary Evaluation Malnutrition Findings (Please click <Entered> for more info): Nutritional Asmnt/Malnutrition Start: 02/21/17 18: 20 Text: Status: Complete Freq: Document 02/21/17 18:21 LCHENG (Rec: 02/21/17 18:32 LCHENG [email or web address]) Nutritional Asmnt/Malnutrition Patient General Information Nutritional Screening High Risk Consult Diagnosis gastric outlet obstruction Pertinent Medical Hx/Surgical Hx HTN, OA, DM, GERD Subjective Information Pt seen sleeping at the time of visit, attempted x 2. Spoke with RN, pt consumed 50% of breakfast and only the soup of lunch today, not much appetite, no complain of N/V. Pt will be NPO from midnight for GI exam tommorrow. Current Diet Order/ Nutrition Support no added salt 4gm, CCHO, no eggs, banana and cereal in morning Pertinent Medications colace, lasix, novolog, levaquin, piperacillin Pertinent Labs 02/20 Na 137, K 4.5, Cl 104, BUN 55, Cr 1.6, Glucose 137, POC 126-199 since admit, Ca 8. 3 Nutritional Hx/Data Height 1.57 m Height (Calculated Centimeters) 157.5 Current Weight (lbs) 97.023 kg Weight (Calculated Kilograms) 97.0 Weight (Calculated Grams) 87373.4 [place] Body Weight 110 % [place] Body Weight 194 Body Mass Index (BMI) 39.1 Weight Status Obese GI Symptoms GI Symptoms None Last BM none Difficult in: None Skin Integrity/Comment: multiple maceration, abrasion to right/left medial thigh Current %PO Poor (25-49%) Estimated Nutritional Goals BEE in Kcals: Adj wt of IBW Calories/Kcals/Kg 27-32 Kcals Calculated Protein: Adj wt of IBW Protein g/k-1.2 Protein Calculated 62-74 Fluid: ml [id number] Nutritional Problem 1. Problem Problem inadequate PO intake Etiology poor appetite Signs/Symptoms: PO intake 25-50% Malnutrition Alert Protein-Calorie Malnutrition N/A Is there a minimum of two criteria No selected? Query Text:Check all the applicable criteria. A minimum of two criteria are recommended for diagnosis of either severe or non-severe malnutrition. Intervention/Recommendation Comments 1. Continue with current diet as ordered. 2. Monitor PO intake, GI symptons, wt, labs and skin integrity 3. F/U as high risk in 2-3 days, 02/23-02/24 Expected Outcomes/Goals Expected Outcomes/Goals 1. PO intake to meet at least 75% of nutritional needs. 2. Wt stability, skin to remain intact, labs to improve
[2017-03-18 10:10] LABS: URINE BACTERIA 2+ /hpf (NONE SEEN); URINE EPITHELIAL CELLS MODERATE /lpf (FEW); URINE YEAST MODERATE /hpf (NONE SEEN)
--- NOTE | 2017-03-18 10:33 | Operative Report ---
DATE OF SURGERY: 03/10/2017 PREOPERATIVE DIAGNOSES: 1. Respiratory failure, on vent. 2. Hypertension. 3. Diabetes mellitus. 4. Chronic obstructive pulmonary disease. POSTOPERATIVE DIAGNOSES: 1. Respiratory failure, on vent. 2. Hypertension. 3. Diabetes mellitus. 4. Chronic obstructive pulmonary disease. OPERATION DONE: Insertion of central line right subclavian vein under ultrasound. DESCRIPTION OF PROCEDURE: The right chest was prepped and draped in appropriate manner. A 1% lidocaine was used to infiltrate the area identified on ultrasound. Several attempts were made to access the vein, which was successful over the guidewire would not go in, indicating possibility of thrombus in this regions. JOB# [id number]
--- NOTE | 2017-03-18 10:36 | Diagnostic Imaging Report ---
CHEST X-RAY: AP view INDICATION: Pneumonia COMPARISON: 03/16/2017 FINDINGS: The prior NG tube has been removed. Tracheostomy tube and left chest AICD stable. Mild improvement in CHF is noted. Cardiomegaly is noted. No focal consolidation identified. IMPRESSION: Overall mild improvement in CHF. Cardiomegaly and atherosclerotic vascular disease.
--- NOTE | 2017-03-18 10:40 | Infectious Disease Prog Note ---
Infectious Disease Subjective - Review of Systems Service Date: 03/18/17 Subjective: Remains on the ventilator support s/p trach. Infectious Disease Objective - Results Result Diagrams: 03/18/17 06:45 03/18/17 06:45 Recent Labs: Laboratory Last Values WBC 22.6 Th/cmm (4.8-10.8) H* 03/18/17 06:45 RBC 3.30 Mil/cmm (3.80-5.20) L 03/18/17 06:45 Hgb 10.0 gm/dL (12-16) L 03/18/17 06:45 Hct 29.5 % (41.0-60) L 03/18/17 06:45 MCV 89.3 fl (81-100) 03/18/17 06:45 MCH 30.5 pg (27.0-31.0) 03/18/17 06:45 MCHC Differential 34.1 pg (28.0-36.0) 03/18/17 06:45 RDW 17.5 % (11.5-20.0) 03/18/17 06:45 Plt Count 175 Th/cmm (150-400) D 03/18/17 06:45 MPV 8.9 fl 03/18/17 06:45 Neutrophils % BARBER APPRENTICE 03/17/17 06:35 Band Neutrophils % 9 % (0-10) 03/18/17 06:45 Lymphocytes % BARBER APPRENTICE 03/17/17 06:35 Monocytes % BARBER APPRENTICE 03/17/17 06:35 Eosinophils % BARBER APPRENTICE 03/17/17 06:35 Basophils % BARBER APPRENTICE 03/17/17 06:35 Neutrophils (Manual) 84 % (40-80) H 03/18/17 06:45 Lymphocytes 6 % (20-50) L 03/18/17 06:45 Monocytes 1 % (2-10) L 03/18/17 06:45 Eosinophils 3 % (0-5) 03/17/17 06:35 Metamyelocytes 1 % (0-0) H 02/18/17 23:35 Hypochromia 1+ 02/18/17 23:35 Platelet Estimate SLIGHT DECREASED (NORMAL) 03/17/17 06:35 Platelet Morphology (NORMAL) 03/04/17 08:00 Plt Count 175 Th/cmm (150-750) 03/18/17 06:45 PT 14.7 SECONDS (9.5-11.5) H 03/18/17 06:45 INR 1.39 (0.5-1.4) 03/18/17 06:45 PTT (Actin FS) 36.2 SECONDS (26.0-38.0) 03/18/17 06:45 Fibrinogen 500.0 mg/dL (200.0-400.0) H 03/18/17 06:45 D-Dimer 2700 ng/mL (100-400) H 03/18/17 06:45 Specimen Source Arterial 03/11/17 09:40 Sample Site Right Radial 03/11/17 09:40 pH 7.29 (7.35-7.45) L 03/11/17 09:40 pCO2 44.0 mmHg (35.0-45.0) 03/11/17 09:40 pO2 66.0 mmHg (80.0-100.0) L 03/11/17 09:40 HCO3 20.6 mEq/L (20.0-26.0) 03/11/17 09:40 Base Excess -5.3 mEq/L (-3.0-3.0) L 03/11/17 09:40 O2 Saturation 90.0 % (92.0-100.0) L 03/11/17 09:40 Jorje Test YES 03/11/17 09:40 Vent Rate 4 03/11/17 09:40 Inspired O2 30 03/11/17 09:40 Tidal Volume 550 03/11/17 09:40 PEEP 5 03/11/17 09:40 Pressure (ins/psv/peep) 15 03/11/17 09:40 Critical Value E.HERNANDEZ 03/11/17 09:40 Sodium 137 mEq/L (136-145) 03/18/17 06:45 Potassium 3.8 mEq/L (3.5-5.1) 03/18/17 06:45 Chloride 107 mEq/L (98-107) 03/18/17 06:45 Carbon Dioxide 20.1 mEq/L (21.0-31.0) L 03/18/17 06:45 Anion Gap 13.7 (7.0-16.0) 03/18/17 06:45 BUN 47 mg/dL (7-25) H 03/18/17 06:45 Creatinine 1.8 mg/dL (0.6-1.2) H 03/18/17 06:45 Est GFR ( Amer) 35.9 ml/min (>90) 03/18/17 06:45 Est GFR (Non-Af Amer) 29.7 ml/min 03/18/17 06:45 BUN/Creatinine Ratio 26.1 03/18/17 06:45 Glucose 217 mg/dL (70-105) H 03/18/17 06:45 POC Glucose 166 MG/DL (70 - 105) H 03/17/17 23:39 Hemoglobin A1c % 5.8 % (4.0-6.0) 02/22/17 10:38 Whole Bld Lactic Acid 2.40 mmol/L (0.60-1.99) H* 02/27/17 15:04 Calcium 8.5 mg/dL (8.6-10.3) L 03/18/17 06:45 Phosphorus 2.5 mg/dL (2.5-5.0) 03/01/17 09:15 Magnesium 2.1 mg/dL (1.9-2.7) 03/01/17 09:15 Total Bilirubin 0.5 mg/dL (0.3-1.0) 03/11/17 08:15 Direct Bilirubin 0.09 mg/dL (0.0-0.2) 02/18/17 23:35 AST 19 U/L (13-39) 03/11/17 08:15 ALT 5 U/L (7-52) L 03/11/17 08:15 Alkaline Phosphatase 69 U/L (34-104) 03/11/17 08:15 Ammonia 38 umol/L (16-53) 03/01/17 17:28 B-Natriuretic Peptide 158.0 pg/mL (5.0-100.0) H 03/04/17 15:39 Total Protein 5.2 gm/dL (6.0-8.3) L 03/11/17 08:15 Albumin 2.9 gm/dL (3.7-5.3) L 03/11/17 08:15 Globulin 2.3 gm/dL 03/11/17 08:15 Albumin/Globulin Ratio 1.3 (1.0-1.8) 03/11/17 08:15 Amylase 36 U/L (29-103) 02/18/17 23:35 Lipase 10 U/L (11-82) L 02/18/17 23:35 Vitamin B12 860 pg/mL (232-1245) 02/26/17 04:45 Free T4 1.04 ng/dL (0.82-1.77) 02/25/17 04:50 Free T3 0.7 pg/mL (2.0-4.4) L 02/25/17 04:50 TSH 0.84 uIU/ml (0.34-5.60) 02/25/17 04:50 Total Cortisol 12.3 02/24/17 07:50 Urine Source CATH 03/18/17 09:20 Urine Color YELLOW 03/18/17 09:20 Urine Clarity HAZY (CLEAR) 03/18/17 09:20 Urine pH 5.5 (4.6 - 8.0) 03/18/17 09:20 Ur Specific [place] 1.015 (1.005-1.030) 03/18/17 09:20 Urine Protein 30 mg/dL (NEGATIVE) H 03/18/17 09:20 Urine Glucose (UA) NEGATIVE mg/dL (NEGATIVE) 03/18/17 09:20 Urine Ketones TRACE mg/dL (NEGATIVE) 03/18/17 09:20 Urine Blood SMALL (NEGATIVE) H 03/18/17 09:20 Urine Nitrate NEGATIVE (NEGATIVE) 03/18/17 09:20 Urine Bilirubin MODERATE (NEGATIVE) H 03/18/17 09:20 Urine Urobilinogen 0.2 E.U./dL (0.2 - 1.0) 03/18/17 09:20 Ur Leukocyte Esterase MODERATE (NEGATIVE) H 03/18/17 09:20 Urine RBC 2-5 /hpf (0-5) 03/18/17 09:20 Urine WBC 10-25 /hpf (0-5) H 03/18/17 09:20 Ur Epithelial Cells MODERATE /lpf (FEW) 03/18/17 09:20 Urine Bacteria 2+ /hpf (NONE SEEN) H 03/18/17 09:20 Urine Yeast MODERATE /hpf (NONE SEEN) H 03/18/17 09:20 Stool Occult Blood NEGATIVE (NEGATIVE) 03/11/17 17:25 Blood Type A POSITIVE 03/13/17 09:15 Antibody Screen NEGATIVE 03/13/17 09:15 Crossmatch See Detail 03/13/17 09:15 - Physical Exam Vitals and I&O: Vital Signs Temp 97.9 F 03/18/17 10:00 Pulse 97 03/18/17 10:00 Resp 17 03/18/17 10:00 BP 105/57 03/18/17 10:00 Pulse Ox 98 03/18/17 10:00 Intake & Output 03/17/17 03/18/17 03/18/17 18:59 06:59 18:59 Intake Total 192.667 410 Output Total 450 225 Balance -257.333 185 Weight (lbs) 119.55 kg 118.161 kg Intake: Intake, IV Amount 12.667 Furosemide 100 mg In 12.667 Sodium Chloride 0.9% 40 ml @ 2.5 mls/hr IV TITR [facility] Rx#:[id number] Oral 0 Tube Feeding 30 360 Other 150 50 Output: Urine 450 225 Other: # Bowel Movements 1 1 Stool Characteristics Soft Soft Liquid Liquid Green Green Active Medications: Current Medications Acetaminophen (Tylenol) 650 mg PO Q4HR PRN PRN Reason: Pain (Mild) Stop: 04/20/17 12:01 Last Admin: 03/06/17 03:23 Dose: 650 mg Albuterol/Ipratropium (Duoneb Neb) 3 ml HHN Q4HRT PRN PRN Reason: Wheezing Stop: 04/27/17 19:59 Last Admin: 02/28/17 03:18 Dose: 3 ml Albuterol/Ipratropium (Duoneb Neb) 3 ml HHN [id number] [facility] Stop: 04/27/17 19:59 Last Admin: 03/18/17 07:22 Dose: 3 ml Chlorhexidine Gluconate (Peridex) 15 ml MM 0800,1999 [facility] Stop: 04/28/17 19:59 Last Admin: 03/18/17 08:45 Dose: 15 ml Diltiazem HCl (Cardizem) 5 mg IVP Q4H PRN PRN Reason: HR > 120 Stop: 04/27/17 19:59 Last Admin: 02/27/17 04:59 Dose: 5 mg Docusate Sodium (Colace) 100 mg PO BID [facility] Stop: 04/20/17 16:59 Last Admin: 03/18/17 09:54 Dose: 100 mg Furosemide (Lasix) 20 mg PO BID [facility] Stop: 05/16/17 16:59 Last Admin: 03/18/17 09:54 Dose: 20 mg Hydromorphone HCl (Dilaudid) 1 mg IVP Q4HR PRN PRN Reason: Severe Pain Stop: 05/13/17 13:01 Last Admin: 03/16/17 08:36 Dose: 1 mg Phenylephrine HCl 10 mg/ (Sodium Chloride) 250 mls @ 0 mls/hr IV TITR [facility]; Per Protocol PRN Reason: Protocol Stop: 04/28/17 07:59 Norepinephrine Bitartrate 8 mg (/ Sodium Chloride) 258 mls @ 0 mls/hr IV TITR [facility]; Per Protocol PRN Reason: Protocol Stop: 04/28/17 09:59 Last Titration: 03/15/17 07:26 Dose: 0 mcg/min, 0 mls/hr Piperacillin Sod/Tazobactam (Sod 3.375 gm/ Sodium Chloride) 50 mls @ 100 mls/ hr IV Q8H [facility] Stop: 05/17/17 10:59 Last Admin: 03/18/17 10:16 Dose: 100 mls/hr Insulin Aspart (Novolog Insulin Sliding Scale) 0 units SUBQ Q6H [facility] PRN Reason: Protocol Stop: 05/03/17 00:00 Last Admin: 03/18/17 06:04 Dose: 4 units Metoclopramide HCl (Reglan) 5 mg IVP Q6HR [facility] Stop: 05/05/17 17:59 Last Admin: 03/18/17 05:48 Dose: 5 mg Metolazone (Zaroxolyn) 5 mg PO DAILY [facility] Stop: 05/10/17 13:14 Last Admin: 03/18/17 09:54 Dose: 5 mg Mirtazapine (Remeron) 15 mg PO HS [facility] PRN Reason: Protocol Stop: 04/26/17 20:59 Last Admin: 03/17/17 20:37 Dose: 15 mg Miscellaneous (Probiotic Screen) 1 ea MC PRN PRN PRN Reason: PROTOCOL Stop: 04/21/17 16:25 Miscellaneous (Communication Order) 1 ea MC PRN [facility] Stop: 05/10/17 13:14 Morphine Sulfate (Morphine) 1 mg IVP Q4HR PRN PRN Reason: Severe Pain Stop: 05/04/17 14:13 Last Admin: 03/18/17 05:25 Dose: 1 mg Nitroglycerin (Nitrostat) 0.4 mg SL Q5MIN PRN PRN Reason: Chest Pain Stop: 04/20/17 12:01 Nystatin (Nystop) 100,000 units TP BID PRN PRN Reason: SKIN EXCORIATIONS Stop: 04/21/17 15:35 Last Admin: 03/08/17 06:00 Dose: 100,000 units Ondansetron HCl (Zofran) 4 mg IV Q6H PRN PRN Reason: Nausea Stop: 04/20/17 03:38 Pantoprazole Sodium (Protonix) 40 mg PO DAILY [facility] Stop: 05/13/17 14:14 Last Admin: 03/18/17 09:54 Dose: 40 mg Potassium Chloride (Klor-Con) 20 meq PO BID [facility] Stop: 05/15/17 16:59 Last Admin: 03/18/17 09:54 Dose: 20 meq General: no acute distress, well developed, well nourished HEENT: atraumatic, normocephalic Neck: supple, no thyromegaly Cardiovascular: S1S2, regular Lungs: clear to auscultation bilaterally, clear to percussion Abdomen: soft, other ( g tube.), no tender, no distended, no mass Extremities: no cyanosis, no clubbing, no edema Neurological: awake, alert - Procedures Procedures: Procedures Procedure Code Date BYPASS TRACHEA TO CUTANEOUS WITH TRACH DEV, OPEN APPROACH [id number] 02/19/17 INCISION OF WINDPIPE 80292 02/19/17 INSERT EMERGENCY AIRWAY 16755 02/19/17 INSERTION OF ENDOTRACHEAL AIRWAY INTO TRACHEA, VIA OPENING [id number] 02/19/17 RESPIRATORY VENTILATION, GREATER THAN 96 CONSECUTIVE HOURS [id number] 02/19/17 VENT MGMT INPAT INIT DAY 88948 02/19/17 VENT MGMT INPAT SUBQ DAY 80102 02/19/17 Infectious Disease Assmt/Plan - Problem List Patient Problems: All Active Problems Acute kidney failure (Acute) 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 leukocytosis r/o sepsis. 2. UTI, Candiduria. 3. Pneumonia. treated. 4. Renal failure. 5. Hypotension, improving 6. VDRF. 7. Thrombocytopenia. DIC. improved. - Plan Plan: Start Zosyn. sepsis w/u. Start diflucan. Nutritional Asmnt/Malnutr-PDOC - Dietary Evaluation Malnutrition Findings (Please click <Entered> for more info): Nutritional Asmnt/Malnutrition Start: 02/21/17 18: 20 Text: Status: Complete Freq: Document 02/21/17 18:21 LCHENG (Rec: 02/21/17 18:32 LCHENG [email or web address]) Nutritional Asmnt/Malnutrition Patient General Information Nutritional Screening High Risk Consult Diagnosis gastric outlet obstruction Pertinent Medical Hx/Surgical Hx HTN, OA, DM, GERD Subjective Information Pt seen sleeping at the time of visit, attempted x 2. Spoke with RN, pt consumed 50% of breakfast and only the soup of lunch today, not much appetite, no complain of N/V. Pt will be NPO from midnight for GI exam tommorrow. Current Diet Order/ Nutrition Support no added salt 4gm, CCHO, no eggs, banana and cereal in morning Pertinent Medications colace, lasix, novolog, levaquin, piperacillin Pertinent Labs 02/20 Na 137, K 4.5, Cl 104, BUN 55, Cr 1.6, Glucose 137, POC 126-199 since admit, Ca 8. 3 Nutritional Hx/Data Height 1.57 m Height (Calculated Centimeters) 157.5 Current Weight (lbs) 97.023 kg Weight (Calculated Kilograms) 97.0 Weight (Calculated Grams) 94486.4 [place] Body Weight 110 % [place] Body Weight 194 Body Mass Index (BMI) 39.1 Weight Status Obese GI Symptoms GI Symptoms None Last BM none Difficult in: None Skin Integrity/Comment: multiple maceration, abrasion to right/left medial thigh Current %PO Poor (25-49%) Estimated Nutritional Goals BEE in Kcals: Adj wt of IBW Calories/Kcals/Kg 27-32 Kcals Calculated Protein: Adj wt of IBW Protein g/k-1.2 Protein Calculated 62-74 Fluid: ml Nutritional Problem 1. Problem Problem inadequate PO intake Etiology poor appetite Signs/Symptoms: PO intake 25-50% Malnutrition Alert Protein-Calorie Malnutrition N/A Is there a minimum of two criteria No selected? Query Text:Check all the applicable criteria. A minimum of two criteria are recommended for diagnosis of either severe or non-severe malnutrition. Intervention/Recommendation Comments 1. Continue with current diet as ordered. 2. Monitor PO intake, GI symptons, wt, labs and skin integrity 3. F/U as high risk in 2-3 days, 02/23-02/24 Expected Outcomes/Goals Expected Outcomes/Goals 1. PO intake to meet at least 75% of nutritional needs. 2. Wt stability, skin to remain intact, labs to improve
--- NOTE | 2017-03-18 13:58 | Internal Medicine Prog Note ---
Internal Medicine Subjective - Subjective Service Date: 03/18/17 Patient is:: awake Per staff patient has:: tolerating meds Internal Medicine Objective - Results Result Diagrams: 03/18/17 06:45 03/18/17 06:45 Recent Labs: Laboratory Last Values WBC 22.6 Th/cmm (4.8-10.8) H* 03/18/17 06:45 RBC 3.30 Mil/cmm (3.80-5.20) L 03/18/17 06:45 Hgb 10.0 gm/dL (12-16) L 03/18/17 06:45 Hct 29.5 % (41.0-60) L 03/18/17 06:45 MCV 89.3 fl (81-100) 03/18/17 06:45 MCH 30.5 pg (27.0-31.0) 03/18/17 06:45 MCHC Differential 34.1 pg (28.0-36.0) 03/18/17 06:45 RDW 17.5 % (11.5-20.0) 03/18/17 06:45 Plt Count 175 Th/cmm (150-400) D 03/18/17 06:45 MPV 8.9 fl 03/18/17 06:45 Neutrophils % [employer] 03/17/17 06:35 Band Neutrophils % 9 % (0-10) 03/18/17 06:45 Lymphocytes % [employer] 03/17/17 06:35 Monocytes % RE[employer] OPERATOR 03/17/17 06:35 Eosinophils % RE[employer] OPERATOR 03/17/17 06:35 Basophils % RE[employer] M[employer] OPERATOR 03/17/17 06:35 Neutrophils (Manual) 84 % (40-80) H 03/18/17 06:45 Lymphocytes 6 % (20-50) L 03/18/17 06:45 Monocytes 1 % (2-10) L 03/18/17 06:45 Eosinophils 3 % (0-5) 03/17/17 06:35 Metamyelocytes 1 % (0-0) H 02/18/17 23:35 Hypochromia 1+ 02/18/17 23:35 Platelet Estimate SLIGHT DECREASED (NORMAL) 03/17/17 06:35 Platelet Morphology (NORMAL) 03/04/17 08:00 Plt Count 175 Th/cmm (150-750) 03/18/17 06:45 PT 14.7 SECONDS (9.5-11.5) H 03/18/17 06:45 INR 1.39 (0.5-1.4) 03/18/17 06:45 PTT (Actin FS) 36.2 SECONDS (26.0-38.0) 03/18/17 06:45 Fibrinogen 500.0 mg/dL (200.0-400.0) H 03/18/17 06:45 D-Dimer 2700 ng/mL (100-400) H 03/18/17 06:45 Specimen Source Arterial 03/11/17 09:40 Sample Site Right Radial 03/11/17 09:40 pH 7.29 (7.35-7.45) L 03/11/17 09:40 pCO2 44.0 mmHg (35.0-45.0) 03/11/17 09:40 pO2 66.0 mmHg (80.0-100.0) L 03/11/17 09:40 HCO3 20.6 mEq/L (20.0-26.0) 03/11/17 09:40 Base Excess -5.3 mEq/L (-3.0-3.0) L 03/11/17 09:40 O2 Saturation 90.0 % (92.0-100.0) L 03/11/17 09:40 Jorje Test YES 03/11/17 09:40 Vent Rate 4 03/11/17 09:40 Inspired O2 30 03/11/17 09:40 Tidal Volume 550 03/11/17 09:40 PEEP 5 03/11/17 09:40 Pressure (ins/psv/peep) 15 03/11/17 09:40 Critical Value E.HERNANDEZ 03/11/17 09:40 Sodium 137 mEq/L (136-145) 03/18/17 06:45 Potassium 3.8 mEq/L (3.5-5.1) 03/18/17 06:45 Chloride 107 mEq/L (98-107) 03/18/17 06:45 Carbon Dioxide 20.1 mEq/L (21.0-31.0) L 03/18/17 06:45 Anion Gap 13.7 (7.0-16.0) 03/18/17 06:45 BUN 47 mg/dL (7-25) H 03/18/17 06:45 Creatinine 1.8 mg/dL (0.6-1.2) H 03/18/17 06:45 Est GFR ( Amer) 35.9 ml/min (>90) 03/18/17 06:45 Est GFR (Non-Af Amer) 29.7 ml/min 03/18/17 06:45 BUN/Creatinine Ratio 26.1 03/18/17 06:45 Glucose 217 mg/dL (70-105) H 03/18/17 06:45 POC Glucose 211 MG/DL (70 - 105) H 03/18/17 12:15 Hemoglobin A1c % 5.8 % (4.0-6.0) 02/22/17 10:38 Whole Bld Lactic Acid 2.40 mmol/L (0.60-1.99) H* 02/27/17 15:04 Calcium 8.5 mg/dL (8.6-10.3) L 03/18/17 06:45 Phosphorus 2.5 mg/dL (2.5-5.0) 03/01/17 09:15 Magnesium 2.1 mg/dL (1.9-2.7) 03/01/17 09:15 Total Bilirubin 0.5 mg/dL (0.3-1.0) 03/11/17 08:15 Direct Bilirubin 0.09 mg/dL (0.0-0.2) 02/18/17 23:35 AST 19 U/L (13-39) 03/11/17 08:15 ALT 5 U/L (7-52) L 03/11/17 08:15 Alkaline Phosphatase 69 U/L (34-104) 03/11/17 08:15 Ammonia 38 umol/L (16-53) 03/01/17 17:28 B-Natriuretic Peptide 158.0 pg/mL (5.0-100.0) H 03/04/17 15:39 Total Protein 5.2 gm/dL (6.0-8.3) L 03/11/17 08:15 Albumin 2.9 gm/dL (3.7-5.3) L 03/11/17 08:15 Globulin 2.3 gm/dL 03/11/17 08:15 Albumin/Globulin Ratio 1.3 (1.0-1.8) 03/11/17 08:15 Amylase 36 U/L (29-103) 02/18/17 23:35 Lipase 10 U/L (11-82) L 02/18/17 23:35 Vitamin B12 860 pg/mL (232-1245) 02/26/17 04:45 Free T4 1.04 ng/dL (0.82-1.77) 02/25/17 04:50 Free T3 0.7 pg/mL (2.0-4.4) L 02/25/17 04:50 TSH 0.84 uIU/ml (0.34-5.60) 02/25/17 04:50 Total Cortisol 12.3 02/24/17 07:50 Urine Source CATH 03/18/17 09:20 Urine Color YELLOW 03/18/17 09:20 Urine Clarity HAZY (CLEAR) 03/18/17 09:20 Urine pH 5.5 (4.6 - 8.0) 03/18/17 09:20 Ur Specific [place] 1.015 (1.005-1.030) 03/18/17 09:20 Urine Protein 30 mg/dL (NEGATIVE) H 03/18/17 09:20 Urine Glucose (UA) NEGATIVE mg/dL (NEGATIVE) 03/18/17 09:20 Urine Ketones TRACE mg/dL (NEGATIVE) 03/18/17 09:20 Urine Blood SMALL (NEGATIVE) H 03/18/17 09:20 Urine Nitrate NEGATIVE (NEGATIVE) 03/18/17 09:20 Urine Bilirubin MODERATE (NEGATIVE) H 03/18/17 09:20 Urine Urobilinogen 0.2 E.U./dL (0.2 - 1.0) 03/18/17 09:20 Ur Leukocyte Esterase MODERATE (NEGATIVE) H 03/18/17 09:20 Urine RBC 2-5 /hpf (0-5) 03/18/17 09:20 Urine WBC 10-25 /hpf (0-5) H 03/18/17 09:20 Ur Epithelial Cells MODERATE /lpf (FEW) 03/18/17 09:20 Urine Bacteria 2+ /hpf (NONE SEEN) H 03/18/17 09:20 Urine Yeast MODERATE /hpf (NONE SEEN) H 03/18/17 09:20 Stool Occult Blood NEGATIVE (NEGATIVE) 03/11/17 17:25 Blood Type A POSITIVE 03/13/17 09:15 Antibody Screen NEGATIVE 03/13/17 09:15 Crossmatch See Detail 03/13/17 09:15 - Physical Exam Vitals and I&O: Vital Signs Temp 96.8 F 03/18/17 13:00 Pulse 103 03/18/17 13:00 Resp 18 03/18/17 13:00 BP 111/45 03/18/17 13:00 Pulse Ox 99 03/18/17 13:00 Intake & Output 03/17/17 03/18/17 03/18/17 18:59 06:59 18:59 Intake Total 192.667 410 50 Output Total 450 225 Balance -257.333 185 50 Weight (lbs) 263 lb 9 oz 260 lb 8 oz Intake: Intake, IV Amount 12.667 50 Furosemide 100 mg In 12.667 Sodium Chloride 0.9% 40 ml @ 2.5 mls/hr IV TITR [facility] Rx#:[id number] Piperacillin Sodium/ 50 Tazobact 3.375 gm In Sodium Chloride 0.9% 50 ml @ 100 mls/hr IV Q8H PATRIA Rx#:[id number] Oral 0 Tube Feeding 30 360 Other 150 50 Output: Urine 450 225 Other: # Bowel Movements 1 1 Stool Characteristics Soft Soft Liquid Liquid Green Green Active Medications: Current Medications Acetaminophen (Tylenol) 650 mg PO Q4HR PRN PRN Reason: Pain (Mild) Stop: 04/20/17 12:01 Last Admin: 03/06/17 03:23 Dose: 650 mg Albuterol/Ipratropium (Duoneb Neb) 3 ml HHN Q4HRT PRN PRN Reason: Wheezing Stop: 04/27/17 19:59 Last Admin: 02/28/17 03:18 Dose: 3 ml Albuterol/Ipratropium (Duoneb Neb) 3 ml HHN [id number] [facility] Stop: 04/27/17 19:59 Last Admin: 03/18/17 12:37 Dose: 3 ml Chlorhexidine Gluconate (Peridex) 15 ml MM 0800,1999 [facility] Stop: 04/28/17 19:59 Last Admin: 03/18/17 08:45 Dose: 15 ml Diltiazem HCl (Cardizem) 5 mg IVP Q4H PRN PRN Reason: HR > 120 Stop: 04/27/17 19:59 Last Admin: 02/27/17 04:59 Dose: 5 mg Docusate Sodium (Colace) 100 mg PO BID [facility] Stop: 04/20/17 16:59 Last Admin: 03/18/17 09:54 Dose: 100 mg Fluconazole (Diflucan) 100 mg GT DAILY PATRIA Stop: 03/24/17 10:59 Last Admin: 03/18/17 11:45 Dose: 100 mg Furosemide (Lasix) 20 mg PO BID PATRIA Stop: 05/16/17 16:59 Last Admin: 03/18/17 09:54 Dose: 20 mg Hydromorphone HCl (Dilaudid) 1 mg IVP Q4HR PRN PRN Reason: Severe Pain Stop: 05/13/17 13:01 Last Admin: 03/16/17 08:36 Dose: 1 mg Phenylephrine HCl 10 mg/ (Sodium Chloride) 250 mls @ 0 mls/hr IV TITR PATRIA; Per Protocol PRN Reason: Protocol Stop: 04/28/17 07:59 Norepinephrine Bitartrate 8 mg (/ Sodium Chloride) 258 mls @ 0 mls/hr IV TITR PATRIA; Per Protocol PRN Reason: Protocol Stop: 04/28/17 09:59 Last Titration: 03/15/17 07:26 Dose: 0 mcg/min, 0 mls/hr Piperacillin Sod/Tazobactam (Sod 3.375 gm/ Sodium Chloride) 50 mls @ 100 mls/ hr IV Q8H [facility] Stop: 05/17/17 10:59 Last Infusion: 03/18/17 10:46 Dose: Infused Insulin Aspart (Novolog Insulin Sliding Scale) 0 units SUBQ Q6H PATRIA PRN Reason: Protocol Stop: 05/03/17 00:00 Last Admin: 03/18/17 12:15 Dose: 4 units Metoclopramide HCl (Reglan) 5 mg IVP Q6HR PATRIA Stop: 05/05/17 17:59 Last Admin: 03/18/17 12:20 Dose: Not Given Metolazone (Zaroxolyn) 5 mg PO DAILY [facility] Stop: 05/10/17 13:14 Last Admin: 03/18/17 09:54 Dose: 5 mg Mirtazapine (Remeron) 15 mg PO HS PATRIA PRN Reason: Protocol Stop: 04/26/17 20:59 Last Admin: 03/17/17 20:37 Dose: 15 mg Miscellaneous (Probiotic Screen) 1 ea MC PRN PRN PRN Reason: PROTOCOL Stop: 04/21/17 16:25 Miscellaneous (Communication Order) 1 ea MC PRN PATRIA Stop: 05/10/17 13:14 Morphine Sulfate (Morphine) 1 mg IVP Q4HR PRN PRN Reason: Severe Pain Stop: 05/04/17 14:13 Last Admin: 03/18/17 05:25 Dose: 1 mg Nitroglycerin (Nitrostat) 0.4 mg SL Q5MIN PRN PRN Reason: Chest Pain Stop: 04/20/17 12:01 Nystatin (Nystop) 100,000 units TP BID PRN PRN Reason: SKIN EXCORIATIONS Stop: 04/21/17 15:35 Last Admin: 03/08/17 06:00 Dose: 100,000 units Ondansetron HCl (Zofran) 4 mg IV Q6H PRN PRN Reason: Nausea Stop: 04/20/17 03:38 Pantoprazole Sodium (Protonix) 40 mg PO DAILY PATRIA Stop: 05/13/17 14:14 Last Admin: 03/18/17 09:54 Dose: 40 mg Potassium Chloride (Klor-Con) 20 meq PO BID PATRIA Stop: 05/15/17 16:59 Last Admin: 03/18/17 09:54 Dose: 20 meq General: weak, alert HEENT: NC/AT, PERRLA Neck: Supple Lungs: ronchi Abdomen: soft, non-tender, non-distended Extremities: excoriation Neurological: no change - Procedures Procedures: Procedures Procedure Code Date BYPASS TRACHEA TO CUTANEOUS WITH TRACH DEV, OPEN APPROACH [id number] 02/19/17 INCISION OF [place] 27779 02/19/17 INSERT EMERGENCY AIRWAY 85153 02/19/17 INSERTION OF ENDOTRACHEAL AIRWAY INTO TRACHEA, VIA OPENING [id number] 02/19/17 RESPIRATORY VENTILATION, GREATER THAN 96 CONSECUTIVE HOURS [id number] 02/19/17 VENT MGMT INPAT INIT DAY 02/19/17 VENT MGMT INPAT SUBQ DAY 02/19/17 Internal Medicine Assmt/Plan - Assessment Assessment: s/p trach Acute kidney failure (Acute) 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 Azotemia (Acute) R79.89 Bradycardia (Acute) R00.1 COPD (chronic obstructive pulmonary disease) (Acute) Cardiomegaly (Acute) I51.7 Chest pain (Acute) R07.9 Decubitus ulcer of buttock, 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 Acute respiratory failure - Plan Plan: LTAC EVAL continue vent support monitor glucose continue ivabx as per id follow up labs in am continue current orders Nutritional Asmnt/Malnutr-PDOC - Dietary Evaluation Malnutrition Findings (Please click <Entered> for more info): Nutritional Asmnt/Malnutrition Start: 02/21/17 18: 20 Text: Status: Complete Freq: Document 02/21/17 18:21 HENG (Rec: 02/21/17 18:32 HEN [email or web address]) Nutritional Asmnt/Malnutrition Patient General Information Nutritional Screening High Risk Consult Diagnosis gastric outlet obstruction Pertinent Medical Hx/Surgical Hx HTN, OA, DM, GERD Subjective Information Pt seen sleeping at the time of visit, attempted x 2. Spoke with RN, pt consumed 50% of breakfast and only the soup of lunch today, not much appetite, no complain of N/V. Pt will be NPO from midnight for GI exam tommorrow. Current Diet Order/ Nutrition Support no added salt 4gm, CCHO, no eggs, banana and cereal in morning Pertinent Medications colace, lasix, novolog, levaquin, piperacillin Pertinent Labs 02/20 Na 137, K 4.5, Cl 104, BUN 55, Cr 1.6, Glucose 137, POC 126-199 since admit, Ca 8. 3 Nutritional Hx/Data Height 5 ft 2 in Height (Calculated Centimeters) 157.5 Current Weight (lbs) 213 lb 14.4 oz Weight (Calculated Kilograms) 97.0 Weight (Calculated Grams) 75053.4 [place] Body Weight 110 % [place] Body Weight 194 Body Mass Index (BMI) 39.1 Weight Status Obese GI Symptoms GI Symptoms None Last BM none Difficult in: None Skin Integrity/Comment: multiple maceration, abrasion to right/left medial thigh Current %PO Poor (25-49%) Estimated Nutritional Goals BEE in Kcals: Adj wt of IBW Calories/Kcals/Kg 27-32 Kcals Calculated 3127-3860 Protein: Adj wt of IBW Protein g/k-1.2 Protein Calculated 62-74 Fluid: ml Nutritional Problem 1. Problem Problem inadequate PO intake Etiology poor appetite Signs/Symptoms: PO intake 25-50% Malnutrition Alert Protein-Calorie Malnutrition N/A Is there a minimum of two criteria No selected? Query Text:Check all the applicable criteria. A minimum of two criteria are recommended for diagnosis of either severe or non-severe malnutrition. Intervention/Recommendation Comments 1. Continue with current diet as ordered. 2. Monitor PO intake, GI symptons, wt, labs and skin integrity 3. F/U as high risk in 2-3 days, 02/23-02/24 Expected Outcomes/Goals Expected Outcomes/Goals 1. PO intake to meet at least 75% of nutritional needs. 2. Wt stability, skin to remain intact, labs to improve
--- NOTE | 2017-03-18 14:06 | General Progress Note ---
Subjective - Review of Systems Service Date: 03/18/17 Subjective: very awake, on vent Objective - Results Result Diagrams: 03/18/17 06:45 03/18/17 06:45 Recent Labs: Laboratory Last Values WBC 22.6 Th/cmm (4.8-10.8) H* 03/18/17 06:45 RBC 3.30 Mil/cmm (3.80-5.20) L 03/18/17 06:45 Hgb 10.0 gm/dL (12-16) L 03/18/17 06:45 Hct 29.5 % (41.0-60) L 03/18/17 06:45 MCV 89.3 fl (81-100) 03/18/17 06:45 MCH 30.5 pg (27.0-31.0) 03/18/17 06:45 MCHC Differential 34.1 pg (28.0-36.0) 03/18/17 06:45 RDW 17.5 % (11.5-20.0) 03/18/17 06:45 Plt Count 175 Th/cmm (150-400) D 03/18/17 06:45 MPV 8.9 fl 03/18/17 06:45 Neutrophils % HVAC TECH 03/17/17 06:35 Band Neutrophils % 9 % (0-10) 03/18/17 06:45 Lymphocytes % HVAC TECH 03/17/17 06:35 Monocytes % HVAC TECH 03/17/17 06:35 Eosinophils % HVAC TECH 03/17/17 06:35 Basophils % HVAC TECH 03/17/17 06:35 Neutrophils (Manual) 84 % (40-80) H 03/18/17 06:45 Lymphocytes 6 % (20-50) L 03/18/17 06:45 Monocytes 1 % (2-10) L 03/18/17 06:45 Eosinophils 3 % (0-5) 03/17/17 06:35 Metamyelocytes 1 % (0-0) H 02/18/17 23:35 Hypochromia 1+ 02/18/17 23:35 Platelet Estimate SLIGHT DECREASED (NORMAL) 03/17/17 06:35 Platelet Morphology (NORMAL) 03/04/17 08:00 Plt Count 175 Th/cmm (150-750) 03/18/17 06:45 PT 14.7 SECONDS (9.5-11.5) H 03/18/17 06:45 INR 1.39 (0.5-1.4) 03/18/17 06:45 PTT (Actin FS) 36.2 SECONDS (26.0-38.0) 03/18/17 06:45 Fibrinogen 500.0 mg/dL (200.0-400.0) H 03/18/17 06:45 D-Dimer 2700 ng/mL (100-400) H 03/18/17 06:45 Specimen Source Arterial 03/11/17 09:40 Sample Site Right Radial 03/11/17 09:40 pH 7.29 (7.35-7.45) L 03/11/17 09:40 pCO2 44.0 mmHg (35.0-45.0) 03/11/17 09:40 pO2 66.0 mmHg (80.0-100.0) L 03/11/17 09:40 HCO3 20.6 mEq/L (20.0-26.0) 03/11/17 09:40 Base Excess -5.3 mEq/L (-3.0-3.0) L 03/11/17 09:40 O2 Saturation 90.0 % (92.0-100.0) L 03/11/17 09:40 Jorje Test YES 03/11/17 09:40 Vent Rate 4 03/11/17 09:40 Inspired O2 30 03/11/17 09:40 Tidal Volume 550 03/11/17 09:40 PEEP 5 03/11/17 09:40 Pressure (ins/psv/peep) 15 03/11/17 09:40 Critical Value E.HERNANDEZ 03/11/17 09:40 Sodium 137 mEq/L (136-145) 03/18/17 06:45 Potassium 3.8 mEq/L (3.5-5.1) 03/18/17 06:45 Chloride 107 mEq/L (98-107) 03/18/17 06:45 Carbon Dioxide 20.1 mEq/L (21.0-31.0) L 03/18/17 06:45 Anion Gap 13.7 (7.0-16.0) 03/18/17 06:45 BUN 47 mg/dL (7-25) H 03/18/17 06:45 Creatinine 1.8 mg/dL (0.6-1.2) H 03/18/17 06:45 Est GFR ( Amer) 35.9 ml/min (>90) 03/18/17 06:45 Est GFR (Non-Af Amer) 29.7 ml/min 03/18/17 06:45 BUN/Creatinine Ratio 26.1 03/18/17 06:45 Glucose 217 mg/dL (70-105) H 03/18/17 06:45 POC Glucose 211 MG/DL (70 - 105) H 03/18/17 12:15 Hemoglobin A1c % 5.8 % (4.0-6.0) 02/22/17 10:38 Whole Bld Lactic Acid 2.40 mmol/L (0.60-1.99) H* 02/27/17 15:04 Calcium 8.5 mg/dL (8.6-10.3) L 03/18/17 06:45 Phosphorus 2.5 mg/dL (2.5-5.0) 03/01/17 09:15 Magnesium 2.1 mg/dL (1.9-2.7) 03/01/17 09:15 Total Bilirubin 0.5 mg/dL (0.3-1.0) 03/11/17 08:15 Direct Bilirubin 0.09 mg/dL (0.0-0.2) 02/18/17 23:35 AST 19 U/L (13-39) 03/11/17 08:15 ALT 5 U/L (7-52) L 03/11/17 08:15 Alkaline Phosphatase 69 U/L (34-104) 03/11/17 08:15 Ammonia 38 umol/L (16-53) 03/01/17 17:28 B-Natriuretic Peptide 158.0 pg/mL (5.0-100.0) H 03/04/17 15:39 Total Protein 5.2 gm/dL (6.0-8.3) L 03/11/17 08:15 Albumin 2.9 gm/dL (3.7-5.3) L 03/11/17 08:15 Globulin 2.3 gm/dL 03/11/17 08:15 Albumin/Globulin Ratio 1.3 (1.0-1.8) 03/11/17 08:15 Amylase 36 U/L (29-103) 02/18/17 23:35 Lipase 10 U/L (11-82) L 02/18/17 23:35 Vitamin B12 860 pg/mL (232-1245) 02/26/17 04:45 Free T4 1.04 ng/dL (0.82-1.77) 02/25/17 04:50 Free T3 0.7 pg/mL (2.0-4.4) L 02/25/17 04:50 TSH 0.84 uIU/ml (0.34-5.60) 02/25/17 04:50 Total Cortisol 12.3 02/24/17 07:50 Urine Source CATH 03/18/17 09:20 Urine Color YELLOW 03/18/17 09:20 Urine Clarity HAZY (CLEAR) 03/18/17 09:20 Urine pH 5.5 (4.6 - 8.0) 03/18/17 09:20 Ur Specific [place] 1.015 (1.005-1.030) 03/18/17 09:20 Urine Protein 30 mg/dL (NEGATIVE) H 03/18/17 09:20 Urine Glucose (UA) NEGATIVE mg/dL (NEGATIVE) 03/18/17 09:20 Urine Ketones TRACE mg/dL (NEGATIVE) 03/18/17 09:20 Urine Blood SMALL (NEGATIVE) H 03/18/17 09:20 Urine Nitrate NEGATIVE (NEGATIVE) 03/18/17 09:20 Urine Bilirubin MODERATE (NEGATIVE) H 03/18/17 09:20 Urine Urobilinogen 0.2 E.U./dL (0.2 - 1.0) 03/18/17 09:20 Ur Leukocyte Esterase MODERATE (NEGATIVE) H 03/18/17 09:20 Urine RBC 2-5 /hpf (0-5) 03/18/17 09:20 Urine WBC 10-25 /hpf (0-5) H 03/18/17 09:20 Ur Epithelial Cells MODERATE /lpf (FEW) 03/18/17 09:20 Urine Bacteria 2+ /hpf (NONE SEEN) H 03/18/17 09:20 Urine Yeast MODERATE /hpf (NONE SEEN) H 03/18/17 09:20 Stool Occult Blood NEGATIVE (NEGATIVE) 03/11/17 17:25 Blood Type A POSITIVE 03/13/17 09:15 Antibody Screen NEGATIVE 03/13/17 09:15 Crossmatch See Detail 03/13/17 09:15 - Physical Exam Vitals and I&O: Vital Signs Temp 96.8 F 03/18/17 13:00 Pulse 103 03/18/17 13:00 Resp 18 03/18/17 13:00 BP 111/45 03/18/17 13:00 Pulse Ox 99 03/18/17 13:00 Intake & Output 03/17/17 03/18/17 03/18/17 18:59 06:59 18:59 Intake Total 192.667 410 50 Output Total 450 225 Balance -257.333 185 50 Weight (lbs) 119.55 kg 118.161 kg Intake: Intake, IV Amount 12.667 50 Furosemide 100 mg In 12.667 Sodium Chloride 0.9% 40 ml @ 2.5 mls/hr IV TITR [facility] Rx#:[id number] Piperacillin Sodium/ 50 Tazobact 3.375 gm In Sodium Chloride 0.9% 50 ml @ 100 mls/hr IV Q8H [facility] Rx#:[id number] Oral 0 Tube Feeding 30 360 Other 150 50 Output: Urine 450 225 Other: # Bowel Movements 1 1 Stool Characteristics Soft Soft Liquid Liquid Green Green Active Medications: Current Medications Acetaminophen (Tylenol) 650 mg PO Q4HR PRN PRN Reason: Pain (Mild) Stop: 04/20/17 12:01 Last Admin: 03/06/17 03:23 Dose: 650 mg Albuterol/Ipratropium (Duoneb Neb) 3 ml HHN Q4HRT PRN PRN Reason: Wheezing Stop: 04/27/17 19:59 Last Admin: 02/28/17 03:18 Dose: 3 ml Albuterol/Ipratropium (Duoneb Neb) 3 ml HHN [id number] [facility] Stop: 04/27/17 19:59 Last Admin: 03/18/17 12:37 Dose: 3 ml Chlorhexidine Gluconate (Peridex) 15 ml MM 0800,2000 [facility] Stop: 04/28/17 19:59 Last Admin: 03/18/17 08:45 Dose: 15 ml Diltiazem HCl (Cardizem) 5 mg IVP Q4H PRN PRN Reason: HR > 120 Stop: 04/27/17 19:59 Last Admin: 02/27/17 04:59 Dose: 5 mg Docusate Sodium (Colace) 100 mg PO BID [facility] Stop: 04/20/17 16:59 Last Admin: 03/18/17 09:54 Dose: 100 mg Fluconazole (Diflucan) 100 mg GT DAILY [facility] Stop: 03/24/17 10:59 Last Admin: 03/18/17 11:45 Dose: 100 mg Furosemide (Lasix) 20 mg PO BID [facility] Stop: 05/16/17 16:59 Last Admin: 03/18/17 09:54 Dose: 20 mg Hydromorphone HCl (Dilaudid) 1 mg IVP Q4HR PRN PRN Reason: Severe Pain Stop: 05/13/17 13:01 Last Admin: 03/16/17 08:36 Dose: 1 mg Phenylephrine HCl 10 mg/ (Sodium Chloride) 250 mls @ 0 mls/hr IV TITR [facility]; Per Protocol PRN Reason: Protocol Stop: 04/28/17 07:59 Norepinephrine Bitartrate 8 mg (/ Sodium Chloride) 258 mls @ 0 mls/hr IV TITR [facility]; Per Protocol PRN Reason: Protocol Stop: 04/28/17 09:59 Last Titration: 03/15/17 07:26 Dose: 0 mcg/min, 0 mls/hr Piperacillin Sod/Tazobactam (Sod 3.375 gm/ Sodium Chloride) 50 mls @ 100 mls/ hr IV Q8H [facility] Stop: 05/17/17 10:59 Last Infusion: 03/18/17 10:46 Dose: Infused Insulin Aspart (Novolog Insulin Sliding Scale) 0 units SUBQ Q6H [facility] PRN Reason: Protocol Stop: 05/03/17 00:00 Last Admin: 03/18/17 12:15 Dose: 4 units Metoclopramide HCl (Reglan) 5 mg IVP Q6HR [facility] Stop: 05/05/17 17:59 Last Admin: 03/18/17 12:20 Dose: Not Given Metolazone (Zaroxolyn) 5 mg PO DAILY [facility] Stop: 05/10/17 13:14 Last Admin: 03/18/17 09:54 Dose: 5 mg Mirtazapine (Remeron) 15 mg PO HS [facility] PRN Reason: Protocol Stop: 04/26/17 20:59 Last Admin: 03/17/17 20:37 Dose: 15 mg Miscellaneous (Probiotic Screen) 1 ea MC PRN PRN PRN Reason: PROTOCOL Stop: 04/21/17 16:25 Miscellaneous (Communication Order) 1 ea MC PRN [facility] Stop: 05/10/17 13:14 Morphine Sulfate (Morphine) 1 mg IVP Q4HR PRN PRN Reason: Severe Pain Stop: 05/04/17 14:13 Last Admin: 03/18/17 05:25 Dose: 1 mg Nitroglycerin (Nitrostat) 0.4 mg SL Q5MIN PRN PRN Reason: Chest Pain Stop: 04/20/17 12:01 Nystatin (Nystop) 100,000 units TP BID PRN PRN Reason: SKIN EXCORIATIONS Stop: 04/21/17 15:35 Last Admin: 03/08/17 06:00 Dose: 100,000 units Ondansetron HCl (Zofran) 4 mg IV Q6H PRN PRN Reason: Nausea Stop: 04/20/17 03:38 Pantoprazole Sodium (Protonix) 40 mg PO DAILY [facility] Stop: 05/13/17 14:14 Last Admin: 03/18/17 09:54 Dose: 40 mg Potassium Chloride (Klor-Con) 20 meq PO BID [facility] Stop: 05/15/17 16:59 Last Admin: 03/18/17 09:54 Dose: 20 meq General: Alert HEENT: Atraumatic (on trach/VENT), EOMI Neck: Supple Cardiovascular: Regular rate Lungs: Other (coarse rhonchi) Abdomen: Bowel sounds, Soft, Other (G tube site c/d/i, no guard or rebound) Extremities: Edema, Other ((+3) bipedal edema, decrease B/L UE edema) Neurological: Sensation intact Skin: no Rash Psych/Mental Status: Mood NL - Procedures Procedures: Procedures Procedure Code Date BYPASS TRACHEA TO CUTANEOUS WITH TRACH DEV, OPEN APPROACH [id number] 02/19/17 INCISION OF WINDPIPE 14789 02/19/17 INSERT EMERGENCY AIRWAY 42316 02/19/17 INSERTION OF ENDOTRACHEAL AIRWAY INTO TRACHEA, VIA OPENING [id number] 02/19/17 RESPIRATORY VENTILATION, GREATER THAN 96 CONSECUTIVE HOURS [id number] 02/19/17 VENT MGMT INPAT INIT DAY 32012 02/19/17 VENT MGMT INPAT SUBQ DAY 17141 02/19/17 Assessment/Plan - Problem List Patient Problems: All Active Problems Acute kidney failure (Acute) 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 Azotemia (Acute) R79.89 Bradycardia (Acute) R00.1 COPD (chronic obstructive pulmonary disease) (Acute) Cardiomegaly (Acute) I51.7 Chest pain (Acute) R07.9 Decubitus ulcer of buttock, 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 - Assessment Assessment: SOHAIL on CKD Acute resp failure on vent 2nd CHF, HAP, possible SOFIE, Exacerbation COPD Sepsis 2nd to UTI DJD Type 2 DM GERD SOFIE Hyponatremia S/p [place], Appe anasarca Thrombocytopenia Anemia of CD - Plan Plan: Lab - Result Diagrams 03/01/17 09:15 03/01/17 09:15 Current Medications Acetaminophen (Tylenol) 650 mg PO Q4HR PRN PRN Reason: Pain (Mild) Stop: 04/20/17 12:01 Last Admin: 02/21/17 09:54 Dose: 650 mg Acetaminophen/Hydrocodone Bitart ([place] 5mg/325mg) 1 tab PO Q6H PRN PRN Reason: PAIN Stop: 04/20/17 13:24 Albuterol/Ipratropium (Duoneb Neb) 3 ml HHN Q4HRT PRN PRN Reason: Wheezing Stop: 04/27/17 19:59 Last Admin: 02/28/17 03:18 Dose: 3 ml Albuterol/Ipratropium (Duoneb Neb) 3 ml HHN [id number] [facility] Stop: 04/27/17 19:59 Last Admin: 03/01/17 13:49 Dose: 3 ml Aspirin (Ecotrin) 81 mg PO DAILY [facility] Stop: 04/21/17 08:59 Last Admin: 03/01/17 09:30 Dose: Not Given Chlorhexidine Gluconate (Peridex) 15 ml MM 0800,2000 [facility] Stop: 04/28/17 19:59 Last Admin: 03/01/17 08:30 Dose: 15 ml Diltiazem HCl (Cardizem) 5 mg IVP Q4H PRN PRN Reason: HR > 120 Stop: 04/27/17 19:59 Last Admin: 02/27/17 04:59 Dose: 5 mg Docusate Sodium (Colace) 100 mg PO BID [facility] Stop: 04/20/17 16:59 Last Admin: 03/01/17 09:31 Dose: Not Given Fluconazole (Diflucan) 100 mg PO DAILY [facility] Stop: 03/08/17 08:59 Last Admin: 03/01/17 09:31 Dose: Not Given Furosemide (Lasix) 40 mg PO DAILY [facility] Stop: 04/21/17 08:59 Last Admin: 03/01/17 09:31 Dose: Not Given Pantoprazole Sodium 80 mg/ (Sodium Chloride) 100 mls @ 10 mls/hr IV Q10H [facility] Stop: 04/20/17 08:59 Last Admin: 03/01/17 09:31 Dose: 10 mls/hr Linezolid (Zyvox) 600 mg in 300 mls @ 300 mls/hr IV Q12HR [facility] Stop: 04/22/17 20:59 Last Infusion: 03/01/17 10:00 Dose: Infused Levofloxacin (Levaquin Pb) 250 mg in 50 mls @ 50 mls/hr IV Q24HR [facility] Stop: 04/23/17 20:59 Last Infusion: 02/28/17 21:17 Dose: Infused Phenylephrine HCl 10 mg/ (Sodium Chloride) 250 mls @ 0 mls/hr IV TITR [facility]; Per Protocol PRN Reason: Protocol Stop: 04/28/17 07:59 Norepinephrine Bitartrate 8 mg (/ Sodium Chloride) 258 mls @ 0 mls/hr IV TITR [facility]; Per Protocol PRN Reason: Protocol Stop: 04/28/17 09:59 Last Titration: 03/01/17 06:31 Dose: 6 mcg/min, 11.61 mls/hr Meropenem 1 gm/ Dextrose 100 mls @ 100 mls/hr IV Q12H [facility] Stop: 04/28/17 12:29 Last Infusion: 03/01/17 13:00 Dose: Infused Potassium Chloride/Dextrose/Sod Cl (D5-0.9ns W/Kcl 20meq) 1,000 mls @ 75 mls/ hr IV .[id number] [facility] Stop: 04/30/17 14:41 Insulin Aspart (Novolog Insulin Sliding Scale) 0 units SUBQ ACHS [facility] PRN Reason: Protocol Stop: 04/20/17 16:29 Last Admin: 03/01/17 12:01 Dose: 4 units Mirtazapine (Remeron) 15 mg PO HS [facility] PRN Reason: Protocol Stop: 04/26/17 20:59 Last Admin: 02/28/17 21:23 Dose: 15 mg Miscellaneous (Probiotic Screen) 1 ea MC PRN PRN PRN Reason: PROTOCOL Stop: 04/21/17 16:25 Morphine Sulfate (Morphine) 1 mg IVP Q3H PRN PRN Reason: Pain (Moderate) Stop: 04/20/17 01:59 Last Admin: 03/01/17 09:28 Dose: 1 mg Nitroglycerin (Nitrostat) 0.4 mg SL Q5MIN PRN PRN Reason: Chest Pain Stop: 04/20/17 12:01 Nystatin (Nystop) 100,000 units TP BID PRN PRN Reason: SKIN EXCORIATIONS Stop: 04/21/17 15:35 Last Admin: 02/21/17 11:46 Dose: 100,000 units Ondansetron HCl (Zofran) 4 mg IV Q6H PRN PRN Reason: Nausea Stop: 04/20/17 03:38 Spironolactone (Aldactone) 50 mg PO BID [facility] Stop: 04/27/17 08:59 Last Admin: 03/01/17 09:29 Dose: Not Given Lab - Result Diagrams 03/18/17 06:45 03/18/17 06:45 Na up to 139 kidney fnc basically the same w/ BUN/Cr of 47/1.8 CXR imrpoved CHF; switch Lasix po, add metolazone DC spironolactone f/u electorlytes, cbc, CXR DC ivf due to worsening anasarca, chf add albumin initiate [id number] Plts up to 175 Peptamen @ 40 ml/hr replace K WBC up to 22 due to UTI Nutritional Asmnt/Malnutr-PDOC - Dietary Evaluation Malnutrition Findings (Please click <Entered> for more info): Nutritional Asmnt/Malnutrition Start: 02/21/17 18: 20 Text: Status: Complete Freq: Document 02/21/17 18:21 LCHENG (Rec: 02/21/17 18:32 LCHENG [id number]) Nutritional Asmnt/Malnutrition Patient General Information Nutritional Screening High Risk Consult Diagnosis gastric outlet obstruction Pertinent Medical Hx/Surgical Hx HTN, OA, DM, GERD Subjective Information Pt seen sleeping at the time of visit, attempted x 2. Spoke with RN, pt consumed 50% of breakfast and only the soup of lunch today, not much appetite, no complain of N/V. Pt will be NPO from midnight for GI exam tommorrow. Current Diet Order/ Nutrition Support no added salt 4gm, CCHO, no eggs, banana and cereal in morning Pertinent Medications colace, lasix, novolog, levaquin, piperacillin Pertinent Labs 02/20 Na 137, K 4.5, Cl 104, BUN 55, Cr 1.6, Glucose 137, POC 126-199 since admit, Ca 8. 3 Nutritional Hx/Data Height 1.57 m Height (Calculated Centimeters) 157.5 Current Weight (lbs) 97.023 kg Weight (Calculated Kilograms) 97.0 Weight (Calculated Grams) 72486.4 [place] Body Weight 110 % [place] Body Weight 194 Body Mass Index (BMI) 39.1 Weight Status Obese GI Symptoms GI Symptoms None Last BM none Difficult in: None Skin Integrity/Comment: multiple maceration, abrasion to right/left medial thigh Current %PO Poor (25-49%) Estimated Nutritional Goals BEE in Kcals: Adj wt of IBW Calories/Kcals/Kg 27-32 Kcals Calculated Protein: Adj wt of IBW Protein g/k-1.2 Protein Calculated 62-74 Fluid: ml Nutritional Problem 1. Problem Problem inadequate PO intake Etiology poor appetite Signs/Symptoms: PO intake 25-50% Malnutrition Alert Protein-Calorie Malnutrition N/A Is there a minimum of two criteria No selected? Query Text:Check all the applicable criteria. A minimum of two criteria are recommended for diagnosis of either severe or non-severe malnutrition. Intervention/Recommendation Comments 1. Continue with current diet as ordered. 2. Monitor PO intake, GI symptons, wt, labs and skin integrity 3. F/U as high risk in 2-3 days, 02/23-02/24 Expected Outcomes/Goals Expected Outcomes/Goals 1. PO intake to meet at least 75% of nutritional needs. 2. Wt stability, skin to remain intact, labs to improve
--- NOTE | 2017-03-18 14:39 | General Progress Note ---
Subjective - Review of Systems Service Date: 03/18/17 Objective - Results Result Diagrams: 03/18/17 06:45 03/18/17 06:45 Recent Labs: Laboratory Last Values WBC 22.6 Th/cmm (4.8-10.8) H* 03/18/17 06:45 RBC 3.30 Mil/cmm (3.80-5.20) L 03/18/17 06:45 Hgb 10.0 gm/dL (12-16) L 03/18/17 06:45 Hct 29.5 % (41.0-60) L 03/18/17 06:45 MCV 89.3 fl (81-100) 03/18/17 06:45 MCH 30.5 pg (27.0-31.0) 03/18/17 06:45 MCHC Differential 34.1 pg (28.0-36.0) 03/18/17 06:45 RDW 17.5 % (11.5-20.0) 03/18/17 06:45 Plt Count 175 Th/cmm (150-400) D 03/18/17 06:45 MPV 8.9 fl 03/18/17 06:45 Neutrophils % [employer] 03/17/17 06:35 Band Neutrophils % 9 % (0-10) 03/18/17 06:45 Lymphocytes % [employer] 03/17/17 06:35 Monocytes % [employer] 03/17/17 06:35 Eosinophils % [employer] 03/17/17 06:35 Basophils % [employer] 03/17/17 06:35 Neutrophils (Manual) 84 % (40-80) H 03/18/17 06:45 Lymphocytes 6 % (20-50) L 03/18/17 06:45 Monocytes 1 % (2-10) L 03/18/17 06:45 Eosinophils 3 % (0-5) 03/17/17 06:35 Metamyelocytes 1 % (0-0) H 02/18/17 23:35 Hypochromia 1+ 02/18/17 23:35 Platelet Estimate SLIGHT DECREASED (NORMAL) 03/17/17 06:35 Platelet Morphology (NORMAL) 03/04/17 08:00 Plt Count 175 Th/cmm (150-750) 03/18/17 06:45 PT 14.7 SECONDS (9.5-11.5) H 03/18/17 06:45 INR 1.39 (0.5-1.4) 03/18/17 06:45 PTT (Actin FS) 36.2 SECONDS (26.0-38.0) 03/18/17 06:45 Fibrinogen 500.0 mg/dL (200.0-400.0) H 03/18/17 06:45 D-Dimer 2700 ng/mL (100-400) H 03/18/17 06:45 Specimen Source Arterial 03/11/17 09:40 Sample Site Right Radial 03/11/17 09:40 pH 7.29 (7.35-7.45) L 03/11/17 09:40 pCO2 44.0 mmHg (35.0-45.0) 03/11/17 09:40 pO2 66.0 mmHg (80.0-100.0) L 03/11/17 09:40 HCO3 20.6 mEq/L (20.0-26.0) 03/11/17 09:40 Base Excess -5.3 mEq/L (-3.0-3.0) L 03/11/17 09:40 O2 Saturation 90.0 % (92.0-100.0) L 03/11/17 09:40 Jorje Test YES 03/11/17 09:40 Vent Rate 4 03/11/17 09:40 Inspired O2 30 03/11/17 09:40 Tidal Volume 550 03/11/17 09:40 PEEP 5 03/11/17 09:40 Pressure (ins/psv/peep) 15 03/11/17 09:40 Critical Value E.HERNANDEZ 03/11/17 09:40 Sodium 137 mEq/L (136-145) 03/18/17 06:45 Potassium 3.8 mEq/L (3.5-5.1) 03/18/17 06:45 Chloride 107 mEq/L (98-107) 03/18/17 06:45 Carbon Dioxide 20.1 mEq/L (21.0-31.0) L 03/18/17 06:45 Anion Gap 13.7 (7.0-16.0) 03/18/17 06:45 BUN 47 mg/dL (7-25) H 03/18/17 06:45 Creatinine 1.8 mg/dL (0.6-1.2) H 03/18/17 06:45 Est GFR ( Amer) 35.9 ml/min (>90) 03/18/17 06:45 Est GFR (Non-Af Amer) 29.7 ml/min 03/18/17 06:45 BUN/Creatinine Ratio 26.1 03/18/17 06:45 Glucose 217 mg/dL (70-105) H 03/18/17 06:45 POC Glucose 211 MG/DL (70 - 105) H 03/18/17 12:15 Hemoglobin A1c % 5.8 % (4.0-6.0) 02/22/17 10:38 Whole Bld Lactic Acid 2.40 mmol/L (0.60-1.99) H* 02/27/17 15:04 Calcium 8.5 mg/dL (8.6-10.3) L 03/18/17 06:45 Phosphorus 2.5 mg/dL (2.5-5.0) 03/01/17 09:15 Magnesium 2.1 mg/dL (1.9-2.7) 03/01/17 09:15 Total Bilirubin 0.5 mg/dL (0.3-1.0) 03/11/17 08:15 Direct Bilirubin 0.09 mg/dL (0.0-0.2) 02/18/17 23:35 AST 19 U/L (13-39) 03/11/17 08:15 ALT 5 U/L (7-52) L 03/11/17 08:15 Alkaline Phosphatase 69 U/L (34-104) 03/11/17 08:15 Ammonia 38 umol/L (16-53) 03/01/17 17:28 B-Natriuretic Peptide 158.0 pg/mL (5.0-100.0) H 03/04/17 15:39 Total Protein 5.2 gm/dL (6.0-8.3) L 03/11/17 08:15 Albumin 2.9 gm/dL (3.7-5.3) L 03/11/17 08:15 Globulin 2.3 gm/dL 03/11/17 08:15 Albumin/Globulin Ratio 1.3 (1.0-1.8) 03/11/17 08:15 Amylase 36 U/L (29-103) 02/18/17 23:35 Lipase 10 U/L (11-82) L 02/18/17 23:35 Vitamin B12 860 pg/mL (232-1245) 02/26/17 04:45 Free T4 1.04 ng/dL (0.82-1.77) 02/25/17 04:50 Free T3 0.7 pg/mL (2.0-4.4) L 02/25/17 04:50 TSH 0.84 uIU/ml (0.34-5.60) 02/25/17 04:50 Total Cortisol 12.3 02/24/17 07:50 Urine Source CATH 03/18/17 09:20 Urine Color YELLOW 03/18/17 09:20 Urine Clarity HAZY (CLEAR) 03/18/17 09:20 Urine pH 5.5 (4.6 - 8.0) 03/18/17 09:20 Ur Specific [place] 1.015 (1.005-1.030) 03/18/17 09:20 Urine Protein 30 mg/dL (NEGATIVE) H 03/18/17 09:20 Urine Glucose (UA) NEGATIVE mg/dL (NEGATIVE) 03/18/17 09:20 Urine Ketones TRACE mg/dL (NEGATIVE) 03/18/17 09:20 Urine Blood SMALL (NEGATIVE) H 03/18/17 09:20 Urine Nitrate NEGATIVE (NEGATIVE) 03/18/17 09:20 Urine Bilirubin MODERATE (NEGATIVE) H 03/18/17 09:20 Urine Urobilinogen 0.2 E.U./dL (0.2 - 1.0) 03/18/17 09:20 Ur Leukocyte Esterase MODERATE (NEGATIVE) H 03/18/17 09:20 Urine RBC 2-5 /hpf (0-5) 03/18/17 09:20 Urine WBC 10-25 /hpf (0-5) H 03/18/17 09:20 Ur Epithelial Cells MODERATE /lpf (FEW) 03/18/17 09:20 Urine Bacteria 2+ /hpf (NONE SEEN) H 03/18/17 09:20 Urine Yeast MODERATE /hpf (NONE SEEN) H 03/18/17 09:20 Stool Occult Blood NEGATIVE (NEGATIVE) 03/11/17 17:25 Blood Type A POSITIVE 03/13/17 09:15 Antibody Screen NEGATIVE 03/13/17 09:15 Crossmatch See Detail 03/13/17 09:15 - Physical Exam Vitals and I&O: Vital Signs Temp 96.8 F 03/18/17 13:00 Pulse 103 03/18/17 13:00 Resp 18 03/18/17 13:00 BP 111/45 03/18/17 13:00 Pulse Ox 99 03/18/17 13:00 Intake & Output 03/17/17 03/18/17 03/18/17 18:59 06:59 18:59 Intake Total 192.667 410 50 Output Total 450 225 Balance -257.333 185 50 Weight (lbs) 119.55 kg 118.161 kg Intake: Intake, IV Amount 12.667 50 Furosemide 100 mg In 12.667 Sodium Chloride 0.9% 40 ml @ 2.5 mls/hr IV TITR [facility] Rx#:[id number] Piperacillin Sodium/ 50 Tazobact 3.375 gm In Sodium Chloride 0.9% 50 ml @ 100 mls/hr IV Q8H [facility] Rx#:[id number] Oral 0 Tube Feeding 30 360 Other 150 50 Output: Urine 450 225 Other: # Bowel Movements 1 1 Stool Characteristics Soft Soft Liquid Liquid Green Green Active Medications: Current Medications Acetaminophen (Tylenol) 650 mg PO Q4HR PRN PRN Reason: Pain (Mild) Stop: 04/20/17 12:01 Last Admin: 03/06/17 03:23 Dose: 650 mg Albuterol/Ipratropium (Duoneb Neb) 3 ml HHN Q4HRT PRN PRN Reason: Wheezing Stop: 04/27/17 19:59 Last Admin: 02/28/17 03:18 Dose: 3 ml Albuterol/Ipratropium (Duoneb Neb) 3 ml HHN [id number] [facility] Stop: 04/27/17 19:59 Last Admin: 03/18/17 12:37 Dose: 3 ml Chlorhexidine Gluconate (Peridex) 15 ml MM 0800,1999 [facility] Stop: 04/28/17 19:59 Last Admin: 03/18/17 08:45 Dose: 15 ml Diltiazem HCl (Cardizem) 5 mg IVP Q4H PRN PRN Reason: HR > 120 Stop: 04/27/17 19:59 Last Admin: 02/27/17 04:59 Dose: 5 mg Docusate Sodium (Colace) 100 mg PO BID [facility] Stop: 04/20/17 16:59 Last Admin: 03/18/17 09:54 Dose: 100 mg Fluconazole (Diflucan) 100 mg GT DAILY PATRIA Stop: 03/24/17 10:59 Last Admin: 03/18/17 11:45 Dose: 100 mg Furosemide (Lasix) 20 mg PO BID PATRIA Stop: 05/16/17 16:59 Last Admin: 03/18/17 09:54 Dose: 20 mg Hydromorphone HCl (Dilaudid) 1 mg IVP Q4HR PRN PRN Reason: Severe Pain Stop: 05/13/17 13:01 Last Admin: 03/16/17 08:36 Dose: 1 mg Phenylephrine HCl 10 mg/ (Sodium Chloride) 250 mls @ 0 mls/hr IV TITR PATRIA; Per Protocol PRN Reason: Protocol Stop: 04/28/17 07:59 Norepinephrine Bitartrate 8 mg (/ Sodium Chloride) 258 mls @ 0 mls/hr IV TITR PATRIA; Per Protocol PRN Reason: Protocol Stop: 04/28/17 09:59 Last Titration: 03/15/17 07:26 Dose: 0 mcg/min, 0 mls/hr Piperacillin Sod/Tazobactam (Sod 3.375 gm/ Sodium Chloride) 50 mls @ 100 mls/ hr IV Q8H PATRIA Stop: 05/17/17 10:59 Last Infusion: 03/18/17 10:46 Dose: Infused Insulin Aspart (Novolog Insulin Sliding Scale) 0 units SUBQ Q6H PATRIA PRN Reason: Protocol Stop: 05/03/17 00:00 Last Admin: 03/18/17 12:15 Dose: 4 units Metoclopramide HCl (Reglan) 5 mg IVP Q6HR PATRIA Stop: 05/05/17 17:59 Last Admin: 03/18/17 12:20 Dose: Not Given Metolazone (Zaroxolyn) 5 mg PO DAILY PATRIA Stop: 05/10/17 13:14 Last Admin: 03/18/17 09:54 Dose: 5 mg Mirtazapine (Remeron) 15 mg PO HS PATRIA PRN Reason: Protocol Stop: 04/26/17 20:59 Last Admin: 03/17/17 20:37 Dose: 15 mg Miscellaneous (Probiotic Screen) 1 ea MC PRN PRN PRN Reason: PROTOCOL Stop: 04/21/17 16:25 Miscellaneous (Communication Order) 1 ea MC PRN PATRIA Stop: 05/10/17 13:14 Morphine Sulfate (Morphine) 1 mg IVP Q4HR PRN PRN Reason: Severe Pain Stop: 05/04/17 14:13 Last Admin: 03/18/17 05:25 Dose: 1 mg Nitroglycerin (Nitrostat) 0.4 mg SL Q5MIN PRN PRN Reason: Chest Pain Stop: 04/20/17 12:01 Nystatin (Nystop) 100,000 units TP BID PRN PRN Reason: SKIN EXCORIATIONS Stop: 04/21/17 15:35 Last Admin: 03/08/17 06:00 Dose: 100,000 units Ondansetron HCl (Zofran) 4 mg IV Q6H PRN PRN Reason: Nausea Stop: 04/20/17 03:38 Pantoprazole Sodium (Protonix) 40 mg PO DAILY PATRIA Stop: 05/13/17 14:14 Last Admin: 03/18/17 09:54 Dose: 40 mg Potassium Chloride (Klor-Con) 20 meq PO BID PATRIA Stop: 05/15/17 16:59 Last Admin: 03/18/17 09:54 Dose: 20 meq General: Alert HEENT: Atraumatic (on trach/VENT), EOMI Neck: Supple Cardiovascular: Regular rate Lungs: Other (coarse rhonchi) Abdomen: Bowel sounds, Soft, Other (G tube site c/d/i, no guard or rebound) Extremities: Edema, Other ((+3) bipedal edema, decrease B/L UE edema) Neurological: Sensation intact Skin: no Rash Psych/Mental Status: Mood NL - Procedures Procedures: Procedures Procedure Code Date BYPASS TRACHEA TO CUTANEOUS WITH TRACH DEV, OPEN APPROACH [id number] 02/19/17 INCISION OF WINDPIPE 07284 02/19/17 INSERT EMERGENCY AIRWAY 65989 02/19/17 INSERTION OF ENDOTRACHEAL AIRWAY INTO TRACHEA, VIA OPENING [id number] 02/19/17 RESPIRATORY VENTILATION, GREATER THAN 96 CONSECUTIVE HOURS [id number] 02/19/17 VENT MGMT INPAT INIT DAY 91845 02/19/17 VENT MGMT INPAT SUBQ DAY 06305 02/19/17 Assessment/Plan - Problem List Patient Problems: All Active Problems Acute kidney failure (Acute) 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 Azotemia (Acute) R79.89 Bradycardia (Acute) R00.1 COPD (chronic obstructive pulmonary disease) (Acute) Cardiomegaly (Acute) I51.7 Chest pain (Acute) R07.9 Decubitus ulcer of buttock, 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 - Assessment Assessment: * SEPTIC SHOCK * DIC improving * RESPIRATORY FAILURE * RENAL FAILURE no need for transfusion Nutritional Asmnt/Malnutr-PDOC - Dietary Evaluation Malnutrition Findings (Please click <Entered> for more info): Nutritional Asmnt/Malnutrition Start: 02/21/17 18: 20 Text: Status: Complete Freq: Document 02/21/17 18:21 HEN (Rec: 02/21/17 18:32 HEN [id number]) Nutritional Asmnt/Malnutrition Patient General Information Nutritional Screening High Risk Consult Diagnosis gastric outlet obstruction Pertinent Medical Hx/Surgical Hx HTN, OA, DM, GERD Subjective Information Pt seen sleeping at the time of visit, attempted x 2. Spoke with RN, pt consumed 50% of breakfast and only the soup of lunch today, not much appetite, no complain of N/V. Pt will be NPO from midnight for GI exam tommorrow. Current Diet Order/ Nutrition Support no added salt 4gm, CCHO, no eggs, banana and cereal in morning Pertinent Medications colace, lasix, novolog, levaquin, piperacillin Pertinent Labs 02/20 Na 137, K 4.5, Cl 104, BUN 55, Cr 1.6, Glucose 137, POC 126-199 since admit, Ca 8. 3 Nutritional Hx/Data Height 1.57 m Height (Calculated Centimeters) 157.5 Current Weight (lbs) 97.023 kg Weight (Calculated Kilograms) 97.0 Weight (Calculated Grams) 73319.4 [place] Body Weight 110 % [place] Body Weight 194 Body Mass Index (BMI) 39.1 Weight Status Obese GI Symptoms GI Symptoms None Last BM none Difficult in: None Skin Integrity/Comment: multiple maceration, abrasion to right/left medial thigh Current %PO Poor (25-49%) Estimated Nutritional Goals BEE in Kcals: Adj wt of IBW Calories/Kcals/Kg 27-32 Kcals Calculated Protein: Adj wt of IBW Protein g/k-1.2 Protein Calculated 62-74 Fluid: ml Nutritional Problem 1. Problem Problem inadequate PO intake Etiology poor appetite Signs/Symptoms: PO intake 25-50% Malnutrition Alert Protein-Calorie Malnutrition N/A Is there a minimum of two criteria No selected? Query Text:Check all the applicable criteria. A minimum of two criteria are recommended for diagnosis of either severe or non-severe malnutrition. Intervention/Recommendation Comments 1. Continue with current diet as ordered. 2. Monitor PO intake, GI symptons, wt, labs and skin integrity 3. F/U as high risk in 2-3 days, 02/23-02/24 Expected Outcomes/Goals Expected Outcomes/Goals 1. PO intake to meet at least 75% of nutritional needs. 2. Wt stability, skin to remain intact, labs to improve
[2017-03-18] MEDS ORDERED: Norepinephrine 4 mg/4mL Vial IV ONE (20:51)
[2017-03-18] MEDS ORDERED: Albumin 25% 25gm/100mL 25 GM/100 ML BTL IV ONE (20:56)
[2017-03-18] MEDS ORDERED: Sodium Chloride 0.9% 500 ML IV ONE (20:57)
[2017-03-18] MEDS ORDERED: Sodium Bicarbonate 8.4% 50mEq PFS IVP ONE ×3 (23:05→23:24)
[2017-03-19] MEDS ORDERED: DOBUTAMINE 500 MG/250 ML IV PRN (00:02)
[2017-03-19 00:06] LABS: pH 7.16 (7.35-7.45)
[2017-03-19 00:07] LABS: ALLEN TEST positive
[2017-03-19] MEDS ORDERED: Norepinephrine 4 mg/4mL Vial IV ONE (00:16)
[2017-03-19 00:50] LABS: pH 7.21 (7.35-7.45)
[2017-03-19 00:51] LABS: ALLEN TEST positive
[2017-03-19] MEDS: INSULIN ASPART SLIDING SCALE 100 UNITS/ML UNIT SUBQ SCH (01:14)
[2017-03-19] MEDS: Metoclopramide 5 mg/mL 2mL Vial IVP SCH (01:37)
--- NOTE | 2017-03-27 05:52 | Discharge Summary ---
DATE OF DISCHARGE: EXPIRATION SUMMARY EXPIRATION DATE: 03/19/2017. Unfortunate female, the patient known to have a history of respiratory difficulties, history of sleep apnea, history of hypertension, diabetes, and was initially admitted for respiratory failure, was treated. The patient was deteriorated and then rapid response was called in and the patient had intubation and had difficulty extubating the patient and Dr. Pan decided to place the patient ____ trach and the patient had a tracheostomy done and suddenly, the patient deteriorated and the patient went into cardiopulmonary arrest and not able to be resuscitated. DIAGNOSES: Status post cardiopulmonary arrest secondary to septic shock, secondary to pneumonia, secondary to chronic obstructive pulmonary disease, status post trach and PEG status and history of sleep apnea. [facility]# [id number]
== END 2017-03-19 03:29 | disposition expired | DRG 4 ==
LOC: ER 21:59 → TELE 02-19 01:30 → ICU 02-19 03:17
PROVIDERS: ADMIT Internal Medicine; ATTEND Internal Medicine
PROC: 0BH17EZ Insertion of Endotracheal Airway into Trachea, Via Natural or Artificial Opening (ICD-10-PCS; principal; 2017-02-27)
PROC: 5A1955Z Respiratory Ventilation, Greater than 96 Consecutive Hours (ICD-10-PCS; 2017-02-27)
PROC: 30233N1 Transfusion of Nonautologous Red Blood Cells into Peripheral Vein, Percutaneous Approach (ICD-10-PCS; 2017-02-27)
PROC: 0DB68ZX Excision of Stomach, Via Natural or Artificial Opening Endoscopic, Diagnostic (ICD-10-PCS; 2017-03-01)
PROC: 05H533Z Insertion of Infusion Device into Right Subclavian Vein, Percutaneous Approach (ICD-10-PCS; 2017-03-10)
PROC: B546ZZA Ultrasonography of Right Subclavian Vein, Guidance (ICD-10-PCS; 2017-03-10)
PROC: 30233L1 Transfusion of Nonautologous Fresh Plasma into Peripheral Vein, Percutaneous Approach (ICD-10-PCS; 2017-03-12)
PROC: 30233K1 Transfusion of Nonautologous Frozen Plasma into Peripheral Vein, Percutaneous Approach (ICD-10-PCS; 2017-03-12)
PROC: 30233R1 Transfusion of Nonautologous Platelets into Peripheral Vein, Percutaneous Approach (ICD-10-PCS; 2017-03-12)
PROC: 0B110F4 Bypass Trachea to Cutaneous with Tracheostomy Device, Open Approach (ICD-10-PCS; 2017-03-14)
PROC: 0DH68UZ Insertion of Feeding Device into Stomach, Via Natural or Artificial Opening Endoscopic (ICD-10-PCS; 2017-03-17)
DX: A41.9 Sepsis, unspecified organism (principal); D65 Disseminated intravascular coagulation [defibrination syndrome]; R65.21 Severe sepsis with septic shock; J18.9 Pneumonia, unspecified organism; L89.153 Pressure ulcer of sacral region, stage 3; K25.4 Chronic or unspecified gastric ulcer with hemorrhage; J96.21 Acute and chronic respiratory failure with hypoxia; N17.9 Acute kidney failure, unspecified; K29.71 Gastritis, unspecified, with bleeding; J44.0 Chronic obstructive pulmonary disease with (acute) lower respiratory infection; J44.1 Chronic obstructive pulmonary disease with (acute) exacerbation; K56.7 Ileus, unspecified; M48.56XA Collapsed vertebra, not elsewhere classified, lumbar region, initial encounter for fracture; B37.49 Other urogenital candidiasis; I47.1 Supraventricular tachycardia; Z99.11 Dependence on respirator [ventilator] status; I13.0 Hypertensive heart and chronic kidney disease with heart failure and stage 1 through stage 4 chronic kidney disease, or unspecified chronic kidney disease; E87.1 Hypo-osmolality and hyponatremia; Z68.42 Body mass index [BMI] 45.0-49.9, adult; I46.9 Cardiac arrest, cause unspecified; M19.90 Unspecified osteoarthritis, unspecified site; K42.9 Umbilical hernia without obstruction or gangrene; M06.9 Rheumatoid arthritis, unspecified; M81.0 Age-related osteoporosis without current pathological fracture; K21.9 Gastro-esophageal reflux disease without esophagitis; D50.9 Iron deficiency anemia, unspecified; I25.119 Atherosclerotic heart disease of native coronary artery with unspecified angina pectoris; E66.9 Obesity, unspecified; K20.9 Esophagitis, unspecified; E11.649 Type 2 diabetes mellitus with hypoglycemia without coma; E11.22 Type 2 diabetes mellitus with diabetic chronic kidney disease; N18.9 Chronic kidney disease, unspecified; I50.9 Heart failure, unspecified; G47.33 Obstructive sleep apnea (adult) (pediatric); D63.8 Anemia in other chronic diseases classified elsewhere; Z82.49 Family history of ischemic heart disease and other diseases of the circulatory system; Z83.3 Family history of diabetes mellitus; Z82.3 Family history of stroke; Z90.49 Acquired absence of other specified parts of digestive tract
CPT/HCPCS: 36415-UA; 36600-90; 71010-TC; 71045-TC; 74020-TC; 74250-TC; 76770-TC; 80048-TC; 80053-TC; 80076-TC; 81001-TC; 82040-TC; 82140-TC; 82150-TC; 82270-TC; 82533-90; 82607-90; 82803-TC; 82948-90; 83036-90; 83605; 83690-TC; 83735-TC; 83880-TC; 84100-TC; 84439-90; 84443-TC; 84479-90; 85007-TC; 85025-TC; 85027-TC; 85049-TC; 85379-TC; 85384-TC; 85610-TC; 85730-TC; 86850-TC; 86900-TC; 86901-TC; 86922-TC; 86927-TC; 87070; 87086-90; 87230-TC; 88305-90; 88312-90; 90779; 90799; 93005; 94002; 94003; 94640; 94760; C9113; J0690; J0696; J1170; J1815; J1940; J1956; J2001; J2020; J2185; J2250; J2270; J2370; J2543; J2704; J2765; J3370; J3475; J3480; J7030; J7040; J7042; J7070; J7131; J7613; P9016; P9017; P9035; P9046; P9047; Q9967; V2790; X5716; X6452; X6488; Z7506; Z7610